=== PATIENT | female | born 2000 | race African-American/Black ===

== ENCOUNTER 2019-11-09 14:52 | Emergency (ER) | payer OTHER, SELFPAY ==
--- NOTE | 2019-11-09 16:36 | ER ---
Nurse's Notes [facility] Name: Roberto Carlos Mcdermott Age: 19 yrs Sex: Female : 2000 Arrival Date: 11/09/2019 Time: 14:54 Bed 6 Private MD: Diagnosis: Foreign body in vulva and vagina-tampon removed Presentation: 11/08 15:02 Chief complaint: Patient states: Pt reports a foul odor to vaginal area that began ss yesterday. Pt is concerned that she may have a tampon lodged in her vagina. Reports brown discharge. Coronavirus screen: Client denies travel out of the [place] in the last 14 days. Ebola Screen: Patient denies exposure to infectious person. Patient denies travel to an Ebola-affected area in the 21 days before illness onset. Initial Sepsis Screen: Does the patient meet any 2 criteria? No. Patient's initial sepsis screen is negative. Does the patient have a suspected source of infection? No. Patient's initial sepsis screen is negative. Risk Assessment: Do you want to hurt yourself or someone else? Patient reports no desire to harm self or others. Onset of symptoms was November 08, 2019. 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 - Social history:: Smoking status: Patient denies any tobacco usage or history of. Screenin:48 Abuse screen: Denies threats or abuse. Nutritional screening: No deficits noted. tw2 Tuberculosis screening: No symptoms or risk factors identified. Fall Risk None identified. Assessment: 16:30 General: Appears in no apparent distress. uncomfortable, Behavior is calm, cooperative, jl7 appropriate for age. Pain: Complains of pain in pelvis Pain currently is 6 out of 10 on a pain scale. Pain began 2-3 days ago. Neuro: Level of Consciousness is awake, alert, obeys commands, Oriented to person, place, time, situation. Cardiovascular: Patient's skin is warm and dry. Respiratory: Airway is patent Respiratory effort is even, unlabored, Respiratory pattern is regular, symmetrical. : Reports pain vaginal odor. Derm: Skin is pink, warm \T\ dry. Vital Signs: 15:05 BP 126 / 85; Pulse 89; Resp 14; Temp 97.8(TE); Pulse Ox 95% on R/A; Weight 70.76 kg; ss Height 5 ft. 5 in. (165.10 cm); Pain 6/10; 16:49 BP 122 / 77; Pulse 84; Resp 16; Pulse Ox 97% on R/A; tw2 15:05 Body Mass Index 25.96 (70.76 kg, 165.10 cm) ED Course: 14:54 Patient arrived in ED. ag5 15:04 Triage completed. 15:05 Arm band placed on right wrist. 16:08 Jalyn Garcia FNP-C is PHCP. kb 16:08 Ulisses Torres MD is Attending Physician. kb 16:10 Placed in gown. Bed in low position. Pulse ox on. NIBP on. tw2 16:18 Cherrie Alcantar, RN is Primary Nurse. jl7 16:30 Assist provider with pelvic exam: Set up pelvic tray. Performed by Jalyn MEDEL Patient tolerated well. tampon removed. 16:49 Patient did not have IV access during this emergency room visit. tw2 Administered Medications: No medications were administered Outcome: 16:36 Discharge ordered by MD. kb 16:48 Discharged to home ambulatory. tw2 16:48 Condition: stable 16:48 Discharge instructions given to patient, Instructed on discharge instructions, follow up and referral plans. medication usage, Demonstrated understanding of instructions, follow-up care, medications, Prescriptions given X 2. 16:51 Patient left the ED. jl7 Signatures: Jalyn Garcia FNP-C FNP-Ckb Smirch, Shelby, RN RN Delma Whittaker RN RN tw2 Cherrie Alcantar RN RN jl7 Dani Baron ag5 Corrections: (The following items were deleted from the chart) 15:07 15:02 Acuity: SHA 4 [facility]
--- NOTE | 2019-11-09 16:36 | EDPHYS ---
Physician Documentation [facility] Name: Roberto Carlos Mcdermott Age: 19 yrs Sex: Female : 2000 Arrival Date: 11/09/2019 Time: 14:54 Bed 6 Private MD: ED Physician Ulisses Torres HPI: 11/08 16:52 This 19 yrs old Black Female presents to ER via Ambulatory with complaints of Vaginal kb Problem. 17:04 The patient presents with PT reports she got off her period 2 days ago and has had some kb vaginal pain and foul odor since then. Believes she has a tampon in.. Onset: The symptoms/episode began/occurred 2 day(s) ago. Modifying factors: The symptoms are alleviated by nothing, the symptoms are aggravated by nothing. Associated signs and symptoms: Pertinent positives: foul odor. Severity of symptoms: At their worst the symptoms were moderate, in the emergency department the symptoms are unchanged. The patient has not experienced similar symptoms in the past. The patient has not recently seen a physician. 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 - Social history:: Smoking status: Patient denies any tobacco usage or history of. ROS: 16:50 Constitutional: Negative for fever, chills, and weight loss, Cardiovascular: Negative kb for chest pain, palpitations, and edema, Respiratory: Negative for shortness of breath, cough, wheezing, and pleuritic chest pain, Abdomen/GI: Negative for abdominal pain, nausea, vomiting, diarrhea, and constipation, Back: Negative for injury and pain, MS/Extremity: Negative for injury and deformity, Skin: Negative for injury, rash, and discoloration, Neuro: Negative for headache, weakness, numbness, tingling, and seizure. 16:50 : Positive for vaginal pain and odor. Exam: 16:50 Constitutional: This is a well developed, well nourished patient who is awake, alert, kb and in no acute distress. Head/Face: Normocephalic, atraumatic. Chest/axilla: Normal chest wall appearance and motion. Nontender with no deformity. No lesions are appreciated. Cardiovascular: Regular rate and rhythm with a normal S1 and S2. No gallops, murmurs, or rubs. Normal PMI, no JVD. No pulse deficits. Respiratory: Lungs have equal breath sounds bilaterally, clear to auscultation and percussion. No rales, rhonchi or wheezes noted. No increased work of breathing, no retractions or nasal flaring. Abdomen/GI: Soft, non-tender, with normal bowel sounds. No distension or tympany. No guarding or rebound. No evidence of tenderness throughout. Skin: Warm, dry with normal turgor. Normal color with no rashes, no lesions, and no evidence of cellulitis. MS/ Extremity: Pulses equal, no cyanosis. Neurovascular intact. Full, normal range of motion. Neuro: Awake and alert, GCS 15, oriented to person, place, time, and situation. Cranial nerves II-XII grossly intact. Motor strength 5/5 in all extremities. Sensory grossly intact. Cerebellar exam normal. Normal gait. 16:50 : Pelvic Exam: External exam: is normal, Speculum exam: tampon in place, the nurse was present for the exam. Vital Signs: 15:05 BP 126 / 85; Pulse 89; Resp 14; Temp 97.8(TE); Pulse Ox 95% on R/A; Weight 70.76 kg; ss Height 5 ft. 5 in. (165.10 cm); Pain 6/10; 16:49 BP 122 / 77; Pulse 84; Resp 16; Pulse Ox 97% on R/A; tw2 15:05 Body Mass Index 25.96 (70.76 kg, 165.10 cm) ss Procedures: 16:51 Foreign Body Removal: a tampon, from the vagina, by ring forceps. The patient tolerated kb the removal well. MDM: 16:08 Patient medically screened. kb 16:50 Data reviewed: vital signs, nurses notes. Data interpreted: Pulse oximetry: on room air kb is 97 %. Interpretation: normal. Counseling: I had a detailed discussion with the patient and/or guardian regarding: the historical points, exam findings, and any diagnostic results supporting the discharge/admit diagnosis, the need for outpatient follow up, an OB/Gyne specialist, to return to the emergency department if symptoms worsen or persist or if there are any questions or concerns that arise at home. 11/08 16:09 Order name: Pelvic Exam Setup; Complete Time: 16:26 kb Administered Medications: No medications were administered Disposition: 17:34 Co-signature as Attending Physician, Ulisses Torres MD. rn Disposition: 11/09/19 16:36 Discharged to Home. Impression: Foreign body in vulva and vagina - tampon removed. - Condition is Stable. - Discharge Instructions: Vaginal Foreign Body, [id number]. - Prescriptions for Doxycycline Hyclate 100 mg Oral Tablet - take 1 tablet by ORAL route every 12 hours for 7 days; 14 tablet. Bactrim DS 800- 160 mg Oral Tablet - take 1 tablet by ORAL route every 12 hours for 7 days; 14 tablet. - Medication Reconciliation Form, Thank You Letter, Antibiotic Education, Prescription Opioid Use form. - Follow up: Emergency Department; When: As needed; Reason: Worsening of condition. Follow up: Private Physician; When: 2 - 3 days; Reason: Recheck today's complaints, Continuance of care, Re-evaluation by your physician. Signatures: Jalyn Garcia, SECTION CREWS ACTIVITIES CLERK-C SECTION CREWS ACTIVITIES CLERK-Ckb Ulisses Torres MD MD rn Smirch, Shelby, RN RN ss Cherrie Alcantar RN RN jl7 Corrections: (The following items were deleted from the chart) 16:51 16:36 11/09/2019 16:36 Discharged to Home. Impression: Foreign body in vulva and vagina jl7 - tampon removed. Condition is Stable. Forms are Medication Reconciliation Form, Thank You Letter, Antibiotic Education, Prescription Opioid Use. Follow up: Emergency Department; When: As needed; Reason: Worsening of condition. Follow up: Private Physician; When: 2 - 3 days; Reason: Recheck today's complaints, Continuance of care, Re-evaluation by your physician. kb
[2019-11-09 17:02] VITALS: TEMP 97.8
[2019-11-09 17:03] VITALS: BP 122/77; O2SAT 97
== END 2019-11-09 16:51 | disposition home or self-care (01) ==
LOC: ER 14:52
DX: T19.2XXA Foreign body in vulva and vagina, initial encounter (principal)
CPT/HCPCS: 99283

== ENCOUNTER 2020-08-01 11:00 | Emergency (ER) | payer SELFPAY ==
--- OUTSIDE RECORDS SUMMARY | 2020-08-01 11:02 | XMS REPORT | Continuity of Care Document ---
:2000 Author Organization [facility] t Address [address] [place] [address] Care Team Providers Name Role Phone Dakota White MD Attending Clinician Alden Tejada NP Attending Clinician Doctor Unassigned, Name Attending Clinician Unavailable Problems This patient has no known problems. Allergies, Adverse Reactions, Alerts This patient has no known allergies or adverse reactions. Medications This patient has no known medications. Procedures This patient has no known procedures. Encounters Start End Encounter Admission Attending Care Care Encounter Source Date/Time Date/Time Type Type Clinicians Facility Department ID 2020-07-24 2020-07-24 Telephone Bethany White [facility] [id number] 00:00:00 00:00:00 Dakota Jordan [id number] [place] [id number] [facility] [id number] [address] 2020-02-11 2020-02-11 Emergency Mallory [facility] [id number] 13:37:00 15:17:00 Samia Jordan [id number] [place] [id number] [place] [id number] 2020-02-11 2020-02-11 Orders Doctor GORDON [id number] 00:00:00 00:00:00 Only [facility] [id number] [place] [facility] [id number] Results This patient has no known results.
--- NOTE | 2020-08-01 12:12 | ER ---
Nurse's Notes [facility] Name: Roberto Carlos Mcdermott Age: 20 yrs Sex: Female : 2000 Arrival Date: 08/01/2020 Time: 11:00 Bed 12 Private MD: Diagnosis: Acute contact otitis externa, bilateral Presentation: 08/01 11:32 Chief complaint: Patient states: 2 days ago my RIGHT ear started hurting after i left [place], then i woke up this morning and now my LEFT ear hurts ear. it sounds clogged up. denies cough/nasal congestion. Coronavirus screen: At this time, the client does not indicate any symptoms associated with coronavirus-19. Ebola Screen: Patient denies travel to an Ebola-affected area in the 21 days before illness onset. Initial Sepsis Screen: Does the patient meet any 2 criteria? No. Patient's initial sepsis screen is negative. Does the patient have a suspected source of infection? No. Patient's initial sepsis screen is negative. Risk Assessment: Do you want to hurt yourself or someone else? Patient reports no desire to harm self or others. Onset of symptoms was August 01, 2020. 11:32 Method Of Arrival: Ambulatory tw2 11:32 Acuity: SHA 4 tw2 Triage Assessment: 11:34 General: Appears in no apparent distress. uncomfortable, slender, Behavior is calm, tw2 cooperative. Pain: Complains of pain in right ear and left ear. EENT: Reports pain in right ear and left ear. 12:07 Neuro: Level of Consciousness is awake, alert, obeys commands, Oriented to person, iw place, time, situation. Respiratory: Airway is patent Respiratory effort is even, unlabored, Respiratory pattern is regular, symmetrical, Denies pain with respiration, pain with cough. Historical: - Allergies: 11:34 No Known Allergies; tw2 - Home Meds: 11:34 None [Active]; tw2 - PMHx: 11:34 None; tw2 - PSHx: 11:34 None; tw2 - Immunization history:: Adult Immunizations. - Social history:: Smoking status: Patient denies any tobacco usage or history of. Screenin:34 Abuse screen: Denies threats or abuse. Denies injuries from another. Nutritional iw screening: No deficits noted. Tuberculosis screening: No symptoms or risk factors identified. Fall Risk None identified. Assessment: 12:34 Reassessment: Patient appears in no apparent distress at this time. Patient and/or iw family updated on plan of care and expected duration. Pain level reassessed. Patient is alert, oriented x 3, equal unlabored respirations, skin warm/dry/pink. Vital Signs: 11:32 BP 136 / 96; Pulse 92; Resp 17; Temp 99.1(TE); Pulse Ox 100% on R/A; Weight 70.31 kg tw2 (R); Height 5 ft. 5 in. (165.10 cm) (R); Pain 10/10; 11:32 Body Mass Index 25.79 (70.31 kg, 165.10 cm) tw2 ED Course: 11:00 Patient arrived in ED. am2 11:33 Triage completed. tw2 11:34 Arm band placed on. tw2 11:46 Brenda Mcdermott RN is Primary Nurse. iw 11:58 [facility] jr8 11:58 Mirza Newby MD is Attending Physician. jr8 12:34 Patient has correct armband on for positive identification. iw 12:34 No provider procedures requiring assistance completed. Patient did not have IV access iw during this emergency room visit. Administered Medications: No medications were administered Outcome: 12:12 Discharge ordered by . jr8 12:34 Discharged to home ambulatory. iw 12:34 Condition: good 12:34 Discharge instructions given to patient, Instructed on discharge instructions, follow up and referral plans. medication usage, Demonstrated understanding of instructions, follow-up care, medications, Prescriptions given X 1. 12:34 Patient left the ED. iw Signatures: Brenda Mcdermott, JACKY RN Marques Choudhary PA PA jr8 Delma Whittaker RN RN 2 Kristine [facility]ss [facility]
--- NOTE | 2020-08-01 12:13 | EDPHYS ---
Physician Documentation [facility] Name: Roberto Carlos Mcdermott Age: 20 yrs Sex: Female : 2000 Arrival Date: 08/01/2020 Time: 11:00 Bed 12 Private MD: ED Physician Mirza Newby HPI: 08/01 12:14 This 20 yrs old Black Female presents to ER via Ambulatory with complaints of Ear Pain. jr8 12:14 The complaints affect the right ear and left ear. Onset: The symptoms/episode jr8 began/occurred acutely, yesterday. Modifying factors: The symptoms are alleviated by nothing, the symptoms are aggravated by pulling on ears, touching. Associated signs and symptoms: The patient has no apparent associated signs or symptoms. Severity of symptoms: At their worst the symptoms were mild in the emergency department the symptoms are unchanged. The patient has not experienced similar symptoms in the past. The patient has not recently seen a physician. Historical: - Allergies: 11:34 No Known Allergies; tw2 - Home Meds: 11:34 None [Active]; tw2 - PMHx: 11:34 None; tw2 - PSHx: 11:34 None; tw2 - Immunization history:: Adult Immunizations. - Social history:: Smoking status: Patient denies any tobacco usage or history of. ROS: 12:14 Constitutional: Negative for fever, chills, and weight loss. jr8 12:14 ENT: Positive for ear pain, Negative for drainage from ear(s), Teeth pain rhinorrhea, sinus congestion, sinus pain, sore throat. 12:14 All other systems are negative. Exam: 12:14 Head/Face: Normocephalic, atraumatic. Eyes: Pupils equal round and reactive to light, jr8 extra-ocular motions intact. Lids and lashes normal. Conjunctiva and sclera are non-icteric and not injected. Cornea within normal limits. Periorbital areas with no swelling, redness, or edema. Neck: Trachea midline, no thyromegaly or masses palpated, and no cervical lymphadenopathy. Supple, full range of motion without nuchal rigidity, or vertebral point tenderness. No Meningismus. Cardiovascular: Regular rate and rhythm with a normal S1 and S2. No gallops, murmurs, or rubs. Normal PMI, no JVD. No pulse deficits. Respiratory: Lungs have equal breath sounds bilaterally, clear to auscultation and percussion. No rales, rhonchi or wheezes noted. No increased work of breathing, no retractions or nasal flaring. Skin: Warm, dry with normal turgor. Normal color with no rashes, no lesions, and no evidence of cellulitis. MS/ Extremity: Pulses equal, no cyanosis. Neurovascular intact. Full, normal range of motion. Neuro: Awake and alert, GCS 15, oriented to person, place, time, and situation. Motor strength 5/5 in all extremities. Sensory grossly intact. 12:14 ENT: External ear(s): are unremarkable, Ear canal(s): erythema, that is moderate, bilaterally, swelling, that is moderate, bilaterally, TM's: are normal, Mouth: is normal, Posterior pharynx: is normal. Vital Signs: 11:32 BP 136 / 96; Pulse 92; Resp 17; Temp 99.1(TE); Pulse Ox 100% on R/A; Weight 70.31 kg tw2 (R); Height 5 ft. 5 in. (165.10 cm) (R); Pain 10/10; 11:32 Body Mass Index 25.79 (70.31 kg, 165.10 cm) tw2 MDM: 11:58 Patient medically screened. jr8 12:12 Data reviewed: vital signs, nurses notes, and as a result, I will discharge patient. jr8 Data interpreted: Pulse oximetry: on room air is 100 %. Interpretation: normal. Counseling: I had a detailed discussion with the patient and/or guardian regarding: the historical points, exam findings, and any diagnostic results supporting the discharge/admit diagnosis, the need for outpatient follow up, a family practitioner, to return to the emergency department if symptoms worsen or persist or if there are any questions or concerns that arise at home. Administered Medications: No medications were administered Disposition: 08/02 07:14 Co-signature as Attending Physician, Mirza Newby MD I agree with the assessment and kdr plan of care. Disposition: 08/01/20 12:12 Discharged to Home. Impression: Acute contact otitis externa, bilateral. - Condition is Stable. - Discharge Instructions: Otitis Externa. - Prescriptions for Cortisporin- TC 3.3-3-10-0.5 mg/mL Otic Drops, Suspension - instill 4 drops by OTIC route every 6 hours for 7 days apply to both ears; 1 bottle. - Work release form, Medication Reconciliation Form, Thank You Letter, Antibiotic Education, Prescription Opioid Use form. - Follow up: Private Physician; When: 1 week; Reason: Recheck today's complaints, Continuance of care, Re-evaluation by your physician. - Problem is new. - Symptoms have improved. Signatures: Mirza Newby MD MD kdr Brenda Mcdermott RN RN iw Marques Choudhary PA PA jr8 Delma Whittaker RN RN tw2 Corrections: (The following items were deleted from the chart) 08/01 12:34 12:12 08/01/2020 12:12 Discharged to Home. Impression: Acute contact otitis externa, iw bilateral. Condition is Stable. Forms are Work release form, Medication Reconciliation Form, Thank You Letter, Antibiotic Education, Prescription Opioid Use. Follow up: Private Physician; When: 1 week; Reason: Recheck today's complaints, Continuance of care, Re-evaluation by your physician. Problem is new. Symptoms have improved. jr8
[2020-08-01 12:39] VITALS: BP 136/96; TEMP 99.1; O2SAT 100
== END 2020-08-01 12:34 | disposition home or self-care (01) ==
LOC: ER 11:00
DX: H60.533 Acute contact otitis externa, bilateral (principal)
CPT/HCPCS: 99282

== ENCOUNTER 2022-01-05 19:01 | Emergency (ER) | payer SELFPAY ==
--- OUTSIDE RECORDS SUMMARY | 2022-01-05 19:05 | XMS REPORT | Continuity of Care Document ---
:2000 Author Organization [facility] t Address [address] [place] [address] Care Team Providers Name Role Phone PCP, PATIENT DOES NOT HAVE A Primary Care Physician Unavaila Hao Feldman Attending Clinician Varghese RICO, Shaniqua Meza Attending Clinician Unavailable HAO DE LA O Attending Clinician Unavailable QING MORLEY Attending Clinician Unavailable Qing Morley MD Attending Clinician Samia Tejada NP Attending Clinician Doctor Unassigned, [place] Attending Clinician Unavailable Payers Payer Name Policy Type Policy Number Effective Date Expiration Date S ourbasim [facility] [id number] 2015 00:00:00 Problems Condition Condition Condition Status Onset Resolution Last Treating Co mments Source Name Details Category Date Date Treatment Clinician Date Vaginal Vaginal Disease Active 2016-02 Univers discharge discharge 0-06 ity of 00:00: [place] 00 Medical Branch Depo-Prove Depo-Prove Disease Active U nivers ra ra 8-18 [place] giovanny status 00 Me dical Branch Allergies, Adverse Reactions, Alerts Allergy Allergy Status Severity Reaction(s) Onset Inactive Treating Comm ents Source Name Type Date Date Clinician NO KNOWN Drug Active Univers ALLERGIE Class ity of S [facility] Social History Social Habit Start Date Stop Date Quantity Comments Source Exposure to Not sure [facility] SARS-CoV-2 (event) Medica l Branch Alcohol intake 2017-05-19 2017-05-19 0 /d [facility] 00:00:00 00:00:00 [facility] Tobacco use and 2014-05-28 2014-05-28 Never used [employer] [facility] exposure 00:00:00 00:00:00 [facility] Sex Assigned At [birth year] [facility] 00:00:00 00:00:00 [facility] Smoking Status Start Date Stop Date Source Never smoker [facility] Medications Ordered Filled Start Stop Current Ordering Indication Dosage Frequency Signature Comments Components Source Medication Medication Date Date Medication? Clinician (SIG) Name Name No known 2020-02 No Univers medications 2-16 ity of 14:27: [address] No known 2020-02 No Univers medications 2-16 ity of 14:27: [address] No known 2020-02 No Univers medications 2-16 ity of 14:27: [address] phenazopyri Yes 200mg Take 1 Uni vers dine 200 mg 6-28 tablet by ity of tablet 00:00: mouth 3 [place] 00 (three) Medical times Branch daily. Nitrofurant Yes 100mg Take 1 Uni vers oin&Nit. 6-28 capsule by ity o [place] (MACROB[place] 00 (two) Medical 100 mg times [place] capsule daily. naproxen Yes 550mg Take 1 Univer s sodium 550 6-28 tablet by ity of mg tablet 00:00: mouth 2 [place] 00 (two) Medical times [place] daily with meals. phenazopyri 2020- No 200mg Take 1 Un elizabeth dine 200 mg 6-28 12-27 tablet by it y of tablet 00:00: 00:00 mouth 3 [place] 00 :00 (three) Medical times Branch daily. Nitrofurant 2020- No 100mg Take 1 Un elizabeth oin&Nit. 6-28 12-27 capsule by ity of [place] 00:00: 00:00 mouth 2 [place] (MACROBID) 00 :00 (two) Medical 100 mg times Branch capsule daily. naproxen 2019- No 550mg Take 1 Unive rs sodium 550 - 12- tablet by ity of mg tablet 00:00: 00:[place] :[place] (two) Medical times Branch daily with meals. promethazin Yes 5mL Take 5 mL U nivers e-codeine 1-11 by mouth 4 ity of 6.25-10 00:00: (four) [place] mg/5 mL 00 times Medical syrup daily as Branch needed for Cough. traMADOL Yes 50mg Take 1 Univers (ULTRAM) 50 1-11 tablet by ity of mg tablet 00:00: mouth [place] 00 every 6 Medical (six) Branch hours as needed for Pain (scale 4-6). promethazin 2020- No 5mL Take 5 mL Univers e-codeine 1-11 12-27 by mouth 4 ity of 6.25-10 00:00: 00:00 (four) [place] mg/5 mL 00 :00 times Medical syrup daily as Branch needed for Cough. traMADOL 2020- No 50mg Take 1 Univer s (ULTRAM) 50 1- 12-27 tablet by it y of mg tablet 00:00: 00:00 mouth [place] 00 :00 every 6 Medical (six) Branch hours as needed for Pain (scale 4-6). No known No Univers medications ity of [facility] Immunizations Ordered Filled Immunization Date Status Comments [facility] e Immunization Name Name Influenza Virus 2016-11-18 Completed Universit y of Vaccine [place] IM 3+ 00:00:00 [facility] Influenza Virus 2016-11-18 Completed Universit y of Vaccine [place] IM 3+ 00:00:00 [facility] Influenza Virus 2016-11-18 Completed Universit y of Vaccine [place] IM 3+ 00:00:00 [facility] Influenza Virus 2016-11-18 Completed Universit y of Vaccine [place] IM 3+ 00:00:00 [facility] Influenza Virus 2016-11-18 Completed Universit y of Vaccine [place] IM 3+ 00:00:00 [facility] Influenza Virus 2016-11-18 Completed Universit y of Vaccine Quad IM 3+ 00:00:00 [facility] HPV9 2016-04-06 Completed University of 00:00:00 [facility] Branch HPV9 2016-04-06 Completed University of 00:00:00 [facility] Branch HPV9 2016-04-06 Completed University of 00:00:00 [place] [facility] HPV9 2016-04-06 Completed University of 00:00:00 [facility] Branch HPV9 2016-04-06 Completed University of 00:00:00 [facility] Branch HPV9 2016-04-06 Completed University of 00:00:00 [place] [facility] HPV9 2016-01-06 Completed University of 00:00:00 [place] [facility] HPV9 2016-01-06 Completed University of 00:00:00 [place] [facility] HPV9 2016-01-06 Completed University of 00:00:00 [facility] Branch HPV9 2016-01-06 Completed University of 00:00:00 [place] [facility] HPV9 2016-01-06 Completed University of 00:00:00 [facility] Branch HPV9 2016-01-06 Completed University of 00:00:00 [facility] Branch HPV9 2015-10-03 Completed University of 00:00:00 [place] [facility] HPV9 2015-10-03 Completed University of 00:00:00 [place] [facility] HPV9 2015-10-03 Completed University of 00:00:00 [place] [facility] HPV9 2015-10-03 Completed University of 00:00:00 [facility] Branch HPV9 2015-10-03 Completed University of 00:00:00 [facility] Branch HPV9 2015-10-03 Completed University of 00:00:00 [facility] Branch MMR 2014-06-28 Completed University of 00:00:00 [facility] Branch MMR 2014-06-28 Completed University of 00:00:00 [place] [facility] MMR 2014-06-28 Completed University of 00:00:00 [place] [facility] MMR 2014-06-28 Completed University of 00:00:00 [place] [facility] MMR 2014-06-28 Completed University of 00:00:00 [place] [facility] MMR 2014-06-28 Completed University of 00:00:00 [facility] Branch TDAP 2014-03-18 Completed University of 00:00:00 [facility] Branch TDAP 2014-03-18 Completed University of 00:00:00 [facility] Branch TDAP 2014-03-18 Completed University of 00:00:00 [facility] Branch TDAP 2014-03-18 Completed University of 00:00:00 [facility] Branch TDAP 2014-03-18 Completed University 00:00:00 [place] [facility] TDAP 2014-03-18 Completed University 00:00:00 [facility] Vital Signs Vital Name Observation Time Observation Value Comments Source Oxygen saturation in 2021-01-30 20:01:00 97 /min University of Arterial blood by [place] [facility] Pulse oximetry Branch Systolic blood 2021-01-30 20:01:00 132 mm[Hg] Univer sity of pressure [place] [facility] Diastolic blood 2021-01-30 20:01:00 72 mm[Hg] Unive rsity of pressure [place] [facility] Heart rate 2021-01-30 20:01:00 88 /min Universi ty of [place] [facility] [place] Body temperature 2021-01-30 20:01:00 37.11 Leigh Univ ersity of [place] [facility] Respiratory rate 2021-01-30 20:01:00 18 /min Univ ersity of [place] [facility] Body height 2021-01-30 20:01:00 165.1 cm Universi ty of [place] [facility] [place] Body weight 2021-01-30 20:01:00 67.217 kg Universi ty of [place] [facility] [place] BMI 2021-01-30 20:01:00 24.66 kg/m2 Universi ty of [place] [facility] Systolic blood 2020-02-11 21:15:00 135 mm[Hg] Univer sity of pressure [place] [facility] Diastolic blood 2020-02-11 21:15:00 95 mm[Hg] Unive rsity of pressure [place] [facility] Oxygen saturation in 2020-02-11 21:15:00 99 /min University of Arterial blood by [place] [facility] Pulse oximetry Branch Body weight 2020-02-11 19:35:00 70.761 kg Universi ty of [place] [facility] Heart rate 2020-02-11 19:35:00 98 /min Universi ty of [place] [facility] Body temperature 2020-02-11 19:35:00 37 Leigh Univ ersity of [place] [facility] Respiratory rate 2020-02-11 19:35:00 18 /min Univ ersity of [place] [facility] Systolic blood 2020-02-11 21:15:00 135 mm[Hg] Univer sity of pressure [place] [facility] Diastolic blood 2020-02-11 21:15:00 95 mm[Hg] Unive rsity of pressure [place] [facility] Oxygen saturation in 2020-02-11 21:15:00 99 /min [facility] Arterial blood by [place] [facility] Pulse oximetry [place] Body weight 2020-02-11 19:35:00 [facility] Heart rate 2020-02-11 19:35:00 98 /min [facility] Body temperature 2020-02-11 19:35:00 37 Leigh [facility] Respiratory rate 2020-02-11 19:35:00 18 /min [facility] Procedures Procedure Date / Time Performed Performing Clinician Soursamy e POCT MOLECULAR FLU 2021-01-30 20:13:00 Hao De La Oit y [facility] POCT MOLECULAR STREP 2021-01-30 20:10:00 Hao De La O [facility] ity [facility] POCT TEST 2020-02-11 20:10:00 Samia Tejada [facility] NOTICE OF PRIVACY 2020-02-11 19:30:19 Doctor Unassigned, No [facility] PRACTICES Name [facility] CONSENT/REFUSAL FOR 2020-02-11 19:30:04 Doctor Unassigned, No [facility] DIAGNOSIS AND Name [facility] TREATMENT Encounters Start End Encounter Admission Attending Care Care Encounter Source Date/Time Date/Time Type Type Clinicians Facility Department ID 2020-12-14 Emergency [facility] [id number] Univers 13:13:53 ity of [facility] 2021-02-01 2021-02-01 Telephone Emilia [facility] [id number] Univers 00:00:00 00:00:00 WebPT [id number] it y of [place] 4.2.7.2.686 [place] as OMER?BLEA [id number] [address] MEDICAL OFFICE BUILDING 2021-01-31 2021-01-31 Telephone EVAN Kwong [id number] Univers 00:00:00 00:00:00 Shaniqua GREGORY [id number] ity of [facility] 4.2.7.2.686 Arm[place] as [id number] [place] [address] Branch 2021-01-30 2021-01-30 [facility] [id number] Univers 14:00:00 14:30:12 [facility] ity of [facility] 2021-01-30 2021-01-30 [facility] [id number] Univers 14:00:00 14:20:[address] [facility] [id number] it y of [place] [id number] Armin as OMER?BLEA [id number] Wi dical [address] MEDICAL OFFICE BUILDING 2020-07-26 2020-07-26 Outpatient R QING MORLEY [facility] [id number] Univers 15:00:00 15:00:00 ity of [facility] 2020-07-24 2020-07-24 Telephone Qing Morley [facility] [id number] 00:00:00 00:00:00 Cam Julian [id number] [place] 4.2.7.2.686 Professio [id number] [address] 2020-07-24 2020-07-24 Telephone Qing Morley [facility] [id number] Univers 00:00:00 00:00:00 Cam Julian [id number] i ty of [place] 4[place]2.7.2.686 [place] Profess[place] [id number] Wi gracesowmya [facility]ia [facility] [address] [facility] 2020-02-11 2020-02-11 Emergency [facility] [id number] 13:37:00 15:17:00 Samia Jordan [id number] [place] [id number] [place] [id number] [facility] 2020-02-11 2020-02-11 Emergency [facility] [id number] Univers 13:37:00 15:17:00 Samia Jordan [id number] ity of [place] 4.2.7.2.686 [place] [id number] [address] 2020-02-11 2020-02-11 Orders Doctor GORDON [id number] 00:00:00 00:00:00 Only Unassigned, COLT [id number] [place] [facility] 4.2.7.2.686 [id number] 2020-02-11 2020-02-11 Orders Doctor EVAN [id number] [facility] 00:00:00 00:00:00 Only Unassigned, COLT [id number] ity of [place] [facility] 4.2.7.2.686 [place] as [id number] [address] Results Test Description Test Time Test Comments Results Result Comments Source POCT MOLECULAR FLU 2021-01-30 20:25:03 Test Item Value Reference Range Interpretation Comme nts POCT Molecular FluA (test code = 84180-9) Negative Negative POCT Molecular FluB (test code = 75620-6) Negative Negative Lab Interpretation (test code = 09195-9) [facility] [id number] 20:18:15 Test Item Value Reference Range Interpretation Comments POCT Molecular Strep (test code = Negative Negative 39325-7) Lab Interpretation (test code = Normal 08135-6) [facility] [id number] 20:10:00 Test Item Value Reference Range Interpretation Comments POCT PREG (test code = 1605) negative On board controls acceptable with positive C Line (test code = 3574) POCT PREG LOT # (test code = 3575) [id number] POCT PREG TEST DATE (test 06-14-2021 code = 3576) Lab Interpretation (test code = Normal 75412-9) [facility]
[2022-01-05 20:21] LABS: SARS-COV-2 RT PCR NEGATIVE (NEGATIVE)
--- NOTE | 2022-01-05 21:01 | ER ---
Nurse's Notes [facility] Name: Roberto Carlos Mcdermott Age: 21 yrs Sex: Female : 2000 Arrival Date: 01/05/2022 Time: 19:05 Bed IW3 Private MD: Diagnosis: Viral infection, unspecified Presentation: 01/05 19:24 Chief complaint: Patient states: Flu like symtoms x3 days; no throat pain just jh5 congestion and chills, fever. Coronavirus screen: Vaccine status: Patient reports being unvaccinated. Client denies travel out of the [place] in the last 14 days. Ebola Screen: Patient negative for fever greater than or equal to 101.5 degrees Fahrenheit, and additional compatible Ebola Virus Disease symptoms Patient denies exposure to infectious person. Patient denies travel to an Ebola-affected area in the 21 days before illness onset. Initial Sepsis Screen: Does the patient meet any 2 criteria? No. Patient's initial sepsis screen is negative. Does the patient have a suspected source of infection? No. Patient's initial sepsis screen is negative. Risk Assessment: Do you want to hurt yourself or someone else? Patient reports no desire to harm self or others. 19:24 Method Of Arrival: Ambulatory [facility] 19:24 Acuity: SHA 3 jh5 Triage Assessment: 19:31 General: Appears in no apparent distress. uncomfortable, slender, well groomed, well jh5 developed, Behavior is calm, cooperative, appropriate for age. Pain: Denies pain. 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 - Social history:: Smoking status: Patient denies any tobacco usage or history of. Screenin:39 Abuse screen: Denies threats or abuse. Nutritional screening: No deficits noted. vc1 Tuberculosis screening: No symptoms or risk factors identified. Fall Risk None identified. Assessment: 21:40 Reassessment: No changes from previously documented assessment. Patient and/or family vc1 updated on plan of care and expected duration. Pain level reassessed. Vital Signs: 19:24 BP 140 / 84; Pulse 106; Resp 16; Temp 98.7; Pulse Ox 100% ; Weight 70.31 kg; Height 5 [facility] ft. 5 in. (165.10 cm); 19:24 Body Mass Index 25.79 (70.31 kg, 165.10 cm) [facility] ED Course: 19:05 Patient arrived in ED. as 19:06 Jaswinder Clay PA is PHCP. cp 19:06 Chad Workman MD is Attending Physician. 19:31 Triage completed. [facility] 19:31 Arm band placed on right wrist. [facility] 19:36 Strep Sent. [facility] 19:36 COVID-19/FLU A+B Sent. [facility] 21:39 No provider procedures requiring assistance completed. Patient did not have IV access vc1 during this emergency room visit. Administered Medications: No medications were administered Medication: 21:39 VIS not applicable for this client. vc1 Outcome: 21:01 Discharge ordered by . cp 21:39 Discharged to home ambulatory. vc1 21:39 Condition: good 21:39 Discharge instructions given to patient, Instructed on discharge instructions, follow up and referral plans. medication usage, Demonstrated understanding of instructions, follow-up care, medications, Prescriptions given X 2. 21:40 Patient left the ED. vc1 Signatures: Evelina Landa as Jaswinder Clay PA PA cp Trina Lamb, RN RN [facility] Julieta López RN RN vc1
--- NOTE | 2022-01-05 21:02 | EDPHYS ---
Physician Documentation [facility] [place] [facility] Name: Roberto Carlos Mcdermott Age: 21 yrs Sex: Female : 2000 Arrival Date: 01/05/2022 Time: 19:05 Bed IW3 Private MD: ED Physician Cahd Workman HPI: 01/05 19:40 This 21 yrs old Black Female presents to ER via Ambulatory with complaints of Flu cp Symptoms. 19:40 The patient or guardian reports cough, that is intermittent. cp 19:40 Onset: The symptoms/episode began/occurred 3 day(s) ago. Associated signs and symptoms: cp Pertinent positives: fever, rhinorrhea, congestion, Pertinent negatives: diarrhea, vomiting. Severity of symptoms: in the emergency department the symptoms are unchanged despite home interventions. 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 - Social history:: Smoking status: Patient denies any tobacco usage or history of. ROS: 19:55 Constitutional: Positive for body aches, Negative for fever, poor PO intake. cp 19:55 Eyes: Negative for injury, pain, redness, and discharge. cp 19:55 ENT: Positive for rhinorrhea, sore throat, Negative for drainage from ear(s), ear pain, difficulty swallowing, difficulty handling secretions. 19:55 Respiratory: Positive for cough, Negative for shortness of breath, wheezing. 19:55 Abdomen/GI: Negative for abdominal pain, nausea, vomiting, and diarrhea. 19:55 Neuro: Negative for altered mental status, dizziness, headache, weakness. 19:55 All other systems are negative. Exam: 20:00 Constitutional: The patient appears in no acute distress, alert, awake, non-toxic, well cp developed, well nourished. 20:00 Head/Face: Normocephalic, atraumatic. cp 20:00 Eyes: Periorbital structures: appear normal, Conjunctiva: normal, no exudate, no injection, Lids and lashes: appear normal, bilaterally. 20:00 ENT: External ear(s): are unremarkable, Ear canal(s): are normal, clear, TM's: bulging, is not appreciated, bilaterally, dullness, bilaterally, erythema, is not appreciated, bilaterally, Nose: is normal, Mouth: Lips: moist, Oral mucosa: pink and intact, moist, Posterior pharynx: Airway: no evidence of obstruction, patent, Tonsils: no enlargement, no erythema, no exudate, swelling, is not appreciated, erythema, that is mild, exudate, is not appreciated. 20:00 Neck: ROM/movement: is normal, is supple, without pain, no range of motions limitations, no meningismus, Lymph nodes: no appreciated lymphadenopathy. 20:00 Chest/axilla: Inspection: normal. 20:00 Cardiovascular: Rate: tachycardic, Rhythm: regular. 20:00 Respiratory: the patient does not display signs of respiratory distress, Respirations: normal, no use of accessory muscles, no retractions, labored breathing, is not present, Breath sounds: decreased breath sounds, are not appreciated, stridor, is not appreciated, + upper airway congestion. wheezing: is not appreciated. 20:00 Abdomen/GI: Exam negative for discomfort, distension, guarding, Inspection: abdomen appears normal. Vital Signs: 19:24 BP 140 / 84; Pulse 106; Resp 16; Temp 98.7; Pulse Ox 100% ; Weight 70.31 kg; Height 5 jh5 ft. 5 in. (165.10 cm); 19:24 Body Mass Index 25.79 (70.31 kg, 165.10 cm) jh5 MDM: 19:34 Patient medically screened. cp 20:00 Differential diagnosis: bronchitis, flu, URI, pneumonia, strep throat, COVID-19. cp 21:00 Data reviewed: vital signs, nurses notes, lab test result(s). cp 21:00 Antibiotic administration: Not indicated, the patient does not have an appreciated cp infiltrate, the patient has a suspected viral illness. Counseling: I had a detailed discussion with the patient and/or guardian regarding: the historical points, exam findings, and any diagnostic results supporting the discharge/admit diagnosis, lab results, to return to the emergency department if symptoms worsen or persist or if there are any questions or concerns that arise at home. ED course: VSS. Patient appears non-toxic and no signs of respiratory distress. Will discharge to home for continued monitoring. 01/05 19:31 Order name: COVID-19/FLU A+B; Complete Time: 20:48 cp 01/05 20:48 Interpretation: Reviewed. cp 01/05 19:31 Order name: Strep; Complete Time: 20:48 cp 01/05 20:25 Order name: Throat Culture EDMS Administered Medications: No medications were administered Disposition: 01/06 07:32 Co-signature as Attending Physician, Chad Workman MD I agree with the assessment and rt plan of care. Disposition Summary: 01/05/22 21:01 Discharge Ordered Location: Home cp Problem: new cp Symptoms: are unchanged cp Condition: Stable cp Diagnosis - Viral infection, unspecified cp Followup: cp - With: Private Physician - When: 2 - 3 days - Reason: Worsening of condition Discharge Instructions: - Discharge Summary Sheet cp - Viral Respiratory Infection cp Forms: - Medication Reconciliation Form cp - Thank You Letter cp - Antibiotic Education cp - Prescription Opioid Use cp - Work release form vc1 Prescriptions: - Bromfed DM 2-30-10 mg/5 mL Oral syrup - take 10 milliliter by ORAL route every 6 hours; 180 milliliter; Refills: 0, cp Product Selection Permitted - Ibuprofen 800 mg Oral Tablet - take 1 tablet by ORAL route every 8 hours As needed take with food; 30 tablet; cp Refills: 0, Product Selection Permitted Signatures: Dispatcher [employer] EDMS Jaswinder Clay PA PA cp Rees, Jessica, JACKY RN jh5 Chad Workman MD MD rt
[2022-01-05 22:19] VITALS: BP 140/84; TEMP 98.7; O2SAT 100
== END 2022-01-05 21:40 | disposition home or self-care (01) ==
LOC: ER 19:01
DX: B34.9 Viral infection, unspecified (principal); Z20.822 Contact with and (suspected) exposure to COVID-19
CPT/HCPCS: 0240U; 87070; 87081; 99283

== ENCOUNTER 2022-04-20 20:57 | Emergency (ER) | payer OTHER ==
--- OUTSIDE RECORDS SUMMARY | 2022-04-20 21:04 | XMS REPORT | Continuity of Care Document ---
:2000 Author Organization [facility] t Address [address] [place] [address] Care Team Providers Name Role Phone Reena Chung PA-C Primary Care Physician QING MORLEY Attending Clinician Unavailable Christopher BLOCK, Qing Duncan Attending Clinician REENA CHUNG Attending Clinician Unavailable Reena Chung PA-C Attending Clinician MYRIAM ROLAND Attending Clinician Unavailable 2, [facility] Attending Clinician Unavailable Doctor Unassigned, Schriever Attending Clinician Unavailable Myriam Mercedes Attending Clinician [phone] Rach Oropeza RN Attending Clinician Unavailable Radha Cooley Attending Clinician RADHA MCCOY Attending Clinician Unavailable Provider, Dimas-Rmchfrancis Temp Attending Clinician Unavailable Hao Chavez Attending Clinician Shaniqua Kwong RN Attending Clinician Unavailable HAO NIETO Attending Clinician Unavailable Mallory BURCH, Samia Ruano Attending Clinician Payers Payer Name Policy Type Policy Number Effective Date Expiration Date S mirtha [facility] [id number] 2015 00:00:00 [place] [facility] [id number] 2022 00:00:00 Problems Condition Condition Condition Status Onset Resolution Last Treating Co mments Source Name Details Category Date Date Treatment Clinician Date BV BV Disease Active Univers (bacterial (bacterial 1-12 it y [place]in[place] [facility] Supervisio Supervisio Disease Active U bartolo n of n of 1-10 ity of high-risk high[place] [facility] History of History of Disease Active U nivvic miscarriag miscarriag 1-10 it y of e e 00:00: [address] Vaginal Vaginal Disease Active 2016-02 Univers discharge discharge 0-06 ity of 00:00: [address] Depo-Prove Depo-Prove Disease Active U bartolo ra ra 8-18 [place]anny status giovanny status 00 [facility] [place] Allergies, Adverse Reactions, Alerts Allergy Allergy Status Severity Reaction(s) Onset Inactive Treating Comm ents Source Name Type Date Date Clinician NO KNOWN Drug Active Univers ALLERGIE Class ity of S [facility] Social History Social Habit Start Date Stop Date Quantity Comments Source ASSERTION 2021-12-10 [facility] 00:00:00 [facility] Exposure to 2022-04-06 2022-04-16 Not sure [facility] SARS-CoV-2 00:00:00 09:56:00 [facility] (event) [place] Alcohol intake 2022-04-16 2022-04-16 0 /d [facility] 00:00:00 00:00:00 [facility] Tobacco use and 2022-01-17 2022-01-17 Smokeless tobacco Un iversity of exposure 00:00:00 00:00:00 non-user [facility] Sex Assigned At [birth year] Universit y of 00:00:00 00:00:00 [facility] Smoking Status Start Date Stop Date Source Never smoked tobacco [facility] Medications Ordered Filled Start Stop Current Ordering Indication Dosage Frequency Signature Comments Components Source Medication Medication Date Date Medication? Clinician (SIG) Name Name metroNIDAZO Yes [id number] 500mg Take 1 Univers LE 500 mg 1-12 tablet by ity o f tablet 00:00: mouth in [place] 00 the Medical morning Branch and 1 tablet in the evening. metroNIDAZO Yes [id number] 500mg Take 1 Univers LE 500 mg 1-12 tablet by ity o f tablet 00:00: mouth in [place] 00 the Medical morning Branch and 1 tablet in the evening. metroNIDAZO Yes [id number] 500mg Take 1 Univers LE 500 mg 1-12 tablet by ity o f tablet 00:00: mouth in [place] 00 the Medical morning Branch and 1 tablet in the evening. metroNIDAZO 2022- No [id number] 500mg Take 1 Univers LE 500 mg 02-26 tablet by ity of tablet 00:00: 00:00 mouth in [place] 00 :00 the Medical morning Branch and 1 tablet in the evening. metroNIDAZO 2022- Yes [id number] 500mg Take 1 Univers LE 500 mg 02-25 tablet by ity of tablet 00:00: 05:59 mouth in [place] 00 :00 the Medical morning Branch and 1 tablet in the evening. Do all this for 7 days. metroNIDAZO 2022- Yes [id number] 500mg Take 1 Univers LE 500 mg 02-25 tablet by ity of tablet 00:00: 05:59 mouth in [place] 00 :00 the Medical morning Branch and 1 tablet in the evening. Do all this for 7 days. metroNIDAZO 2022- Yes [id number] 500mg Take 1 Univers LE 500 mg 02-25 tablet by ity of tablet 00:00: 05:59 mouth in [place] 00 :00 the Medical morning Branch and 1 tablet in the evening. Do all this for 7 days. 2021-02 Yes [id number] Take 1 Uni vers vit 2-03 combo pack ity of 33-iron-fol 00:00: daily [place] ic-dha 00 Medical (SELECT-OB Branch + DHA) 29 mg iron-1 mg -250 mg combo pack proMETHazin 2021-02 Yes [id number] 25mg Take 1 Univers e 25 mg 2-03 tablet by ity of tablet 00:00: mouth [place] 00 every 6 Medical (six) Branch hours as needed for Nausea and Vomiting (N/V). 2021-02 Yes [id number] Take 1 Uni vers vit 2-03 combo pack ity of 33-iron-fol 00:00: daily [place] ic-dha 00 Medical (SELECT-OB Branch + DHA) 29 mg iron-1 mg -250 mg combo pack proMETHazin 2021-02 Yes [id number] 25mg Take 1 Univers e 25 mg 2-03 tablet by ity of tablet 00:00: mouth [place] 00 every 6 Medical (six) Branch hours as needed for Nausea and Vomiting (N/V). 2021-02 Yes [id number] Take 1 Uni vers vit 2-03 combo pack ity of 33-iron-fol 00:00: daily [place] ic-dha 00 Medical (SELECT-OB Branch + DHA) 29 mg iron-1 mg -250 mg combo pack proMETHazin 2021-02 Yes [id number] 25mg Take 1 Univers e 25 mg 2-03 tablet by ity of tablet 00:00: mouth [place] 00 every 6 Medical (six) Branch hours as needed for Nausea and Vomiting (N/V). 2021-02 Yes [id number] Take 1 Uni vers vit 2-03 combo pack ity of 33-iron-fol 00:00: daily [place] ic-dha 00 Medical (SELECT-OB Branch + DHA) 29 mg iron-1 mg -250 mg combo pack proMETHazin 2021-02 Yes [id number] 25mg Take 1 Univers e 25 mg 2-03 tablet by ity of tablet 00:00: mouth [place] 00 every 6 Medical (six) Branch hours as needed for Nausea and Vomiting (N/V). 2021-02 Yes [id number] Take 1 Uni vers vit 2-03 combo pack ity of 33-iron-fol 00:00: daily [place] ic-dha 00 Medical (SELECT-OB Branch + DHA) 29 mg iron-1 mg -250 mg combo pack proMETHazin 2021-02 Yes [id number] 25mg Take 1 Univers e 25 mg 2-03 tablet by ity of tablet 00:00: mouth [place] 00 every 6 Medical (six) Branch hours as needed for Nausea and Vomiting (N/V). 2021-02 Yes [id number] Take 1 Uni vers vit 2-03 combo pack ity of 33-iron-fol 00:00: daily [place] ic-dha 00 Medical (SELECT-OB Branch + DHA) 29 mg iron-1 mg -250 mg combo pack proMETHazin 2021-02 Yes [id number] 25mg Take 1 Univers e 25 mg 2-03 tablet by ity of tablet 00:00: mouth [place] 00 every 6 Medical (six) Branch hours as needed for Nausea and Vomiting (N/V). 2021-02 Yes [id number] Take 1 Uni vers vit 2-03 combo pack ity of 33-iron-fol 00:00: daily [place] ic-dha 00 Medical (SELECT-OB Branch + DHA) 29 mg iron-1 mg -250 mg combo pack proMETHazin 2021-02 Yes [id number] 25mg Take 1 Univers e 25 mg 2-03 tablet by ity of tablet 00:00: mouth [place] 00 every 6 Medical (six) Branch hours as needed for Nausea and Vomiting (N/V). 2021-02 Yes [id number] Take 1 Uni vers vit 2-03 combo pack ity of 33-iron-fol 00:00: daily [place] ic-dha 00 Medical (SELECT-OB Branch + DHA) 29 mg iron-1 mg -250 mg combo pack proMETHazin 2021-02 Yes [id number] 25mg Take 1 Univers e 25 mg 2-03 tablet by ity of tablet 00:00: mouth [place] 00 every 6 Medical (six) Branch hours as needed for Nausea and Vomiting (N/V). 2021-02 Yes [id number] Take 1 Uni vers vit 2-03 combo pack ity of 33-iron-fol 00:00: daily [place] ic-dha 00 Medical (SELECT-OB Branch + DHA) 29 mg iron-1 mg -250 mg combo pack proMETHazin 2021-02 Yes [id number] 25mg Take 1 Univers e 25 mg 2-03 tablet by ity of tablet 00:00: mouth [place] 00 every 6 Medical (six) Branch hours as needed for Nausea and Vomiting (N/V). 2021-02 Yes [id number] Take 1 Uni vers vit 2-03 combo pack ity of 33-iron-fol 00:00: daily [place] ic-dha 00 Medical (SELECT-OB Branch + DHA) 29 mg iron-1 mg -250 mg combo pack proMETHazin 2021-02 Yes [id number] 25mg Take 1 Univers e 25 mg 2-03 tablet by ity of tablet 00:00: mouth [place] 00 every 6 Medical (six) Branch hours as needed for Nausea and Vomiting (N/V). 2021-02 Yes [id number] Take 1 Uni vers vit 2-03 combo pack ity of 33-iron-fol 00:00: daily [place] ic-dha 00 Medical (SELECT-OB Branch + DHA) 29 mg iron-1 mg -250 mg combo pack proMETHazin 2021-02 Yes [id number] 25mg Take 1 Univers e 25 mg 2-03 tablet by ity of tablet 00:00: mouth [place] 00 every 6 Medical (six) Branch hours as needed for Nausea and Vomiting (N/V). 2021-02 Yes [id number] Take 1 Uni vers vit 2-03 combo pack ity of 33-iron-fol 00:00: daily [place] ic-dha 00 Medical (SELECT-OB Branch + DHA) 29 mg iron-1 mg -250 mg combo pack proMETHazin 2021-02 Yes [id number] 25mg Take 1 Univers e 25 mg 2-03 tablet by ity of tablet 00:00: mouth [place] 00 every 6 Medical (six) Branch hours as needed for Nausea and Vomiting (N/V). 2021-02 Yes [id number] Take 1 Uni vers vit 2-03 combo pack ity of 33-iron-fol 00:00: daily [place] ic-dha 00 Medical (SELECT-OB Branch + DHA) 29 mg iron-1 mg -250 mg combo pack proMETHazin 2021-02 Yes [id number] 25mg Take 1 Univers e 25 mg 2-03 tablet by ity of tablet 00:00: mouth [place] 00 every 6 Medical (six) Branch hours as needed for Nausea and Vomiting (N/V). 2021-02 Yes [id number] Take 1 Uni vers vit 2-03 combo pack ity of 33-iron-fol 00:00: daily [place] ic-dha 00 Medical (SELECT-OB Branch + DHA) 29 mg iron-1 mg -250 mg combo pack proMETHazin 2021-02 Yes [id number] 25mg Take 1 Univers e 25 mg 2-03 tablet by ity of tablet 00:00: mouth [place] 00 every 6 Medical (six) Branch hours as needed for Nausea and Vomiting (N/V). 2021-02 Yes [id number] Take 1 Uni vers vit 2-03 combo pack ity of 33-iron-fol 00:00: daily [place] ic-dha 00 Medical (SELECT-OB Branch + DHA) 29 mg iron-1 mg -250 mg combo pack proMETHazin 2021-02 Yes [id number] 25mg Take 1 Univers e 25 mg 2-03 tablet by ity of tablet 00:00: mouth [place] 00 every 6 Medical (six) Branch hours as needed for Nausea and Vomiting (N/V). 2021-02 Yes [id number] Take 1 Uni vers vit 2-03 combo pack ity of 33-iron-fol 00:00: daily [place] ic-dha 00 Medical (SELECT-OB Branch + DHA) 29 mg iron-1 mg -250 mg combo pack proMETHazin 2021-02 Yes [id number] 25mg Take 1 Univers e 25 mg 2-03 tablet by ity of tablet 00:00: mouth [place] 00 every 6 Medical (six) Branch hours as needed for Nausea and Vomiting (N/V). 2021-02 Yes [id number] Take 1 Uni vers vit 2-03 combo pack ity of 33-iron-fol 00:00: daily [place] ic-dha 00 Medical (SELECT-OB Branch + DHA) 29 mg iron-1 mg -250 mg combo pack proMETHazin 2021-02 Yes [id number] 25mg Take 1 Univers e 25 mg 2-03 tablet by ity of tablet 00:00: mouth [place] 00 every 6 Medical (six) Branch hours as needed for Nausea and Vomiting (N/V). 2021-02 Yes [id number] Take 1 Uni vers vit 2-03 combo pack ity of 33-iron-fol 00:00: daily [place] ic-dha 00 Medical (SELECT-OB Branch + DHA) 29 mg iron-1 mg -250 mg combo pack proMETHazin 2021-02 Yes [id number] 25mg Take 1 Univers e 25 mg 2-03 tablet by ity of tablet 00:00: mouth [place] 00 every 6 Medical (six) Branch hours as needed for Nausea and Vomiting (N/V). 2021-02 Yes [id number] Take 1 Uni vers vit 2-03 combo pack ity of 33-iron-fol 00:00: daily [place] ic-dha 00 Medical (SELECT-OB Branch + DHA) 29 mg iron-1 mg -250 mg combo pack proMETHazin 2021-02 Yes [id number] 25mg Take 1 Univers e 25 mg 2-03 tablet by ity of tablet 00:00: mouth [place] 00 every 6 Medical (six) Branch hours as needed for Nausea and Vomiting (N/V). 2021-02 Yes [id number] Take 1 Uni vers vit 2-03 combo pack ity of 33-iron-fol 00:00: daily [place] ic-dha 00 Medical (SELECT-OB Branch + DHA) 29 mg iron-1 mg -250 mg combo pack proMETHazin 2021-02 Yes [id number] 25mg Take 1 Univers e 25 mg 2-03 tablet by ity of tablet 00:00: mouth [place] 00 every 6 Medical (six) Branch hours as needed for Nausea and Vomiting (N/V). 2021-02 Yes [id number] Take 1 Uni vers vit 2-03 combo pack ity of 33-iron-fol 00:00: daily [place] ic-dha 00 Medical (SELECT-OB Branch + DHA) 29 mg iron-1 mg -250 mg combo pack proMETHazin 2021-02 Yes [id number] 25mg Take 1 Univers e 25 mg 2-03 tablet by ity of tablet 00:00: mouth [place] 00 every 6 Medical (six) Branch hours as needed for Nausea and Vomiting (N/V). 2021-02 Yes [id number] Take 1 Uni vers vit 2-03 combo pack ity of 33-iron-fol 00:00: daily [place] ic-dha 00 Medical (SELECT-OB Branch + DHA) 29 mg iron-1 mg -250 mg combo pack proMETHazin 2021-02 Yes [id number] 25mg Take 1 Univers e 25 mg 2-03 tablet by ity of tablet 00:00: mouth [place] 00 every 6 Medical (six) Branch hours as needed for Nausea and Vomiting (N/V). 2021-02 Yes [id number] Take 1 Uni vers vit 2-03 combo pack ity of 33-iron-fol 00:00: daily [place] ic-dha 00 Medical (SELECT-OB Branch + DHA) 29 mg iron-1 mg -250 mg combo pack proMETHazin 2021-02 Yes [id number] 25mg Take 1 Univers e 25 mg 2-03 tablet by ity of tablet 00:00: mouth [place] 00 every 6 Medical (six) Branch hours as needed for Nausea and Vomiting (N/V). 2021-02 Yes [id number] Take 1 Uni vers vit 2-03 combo pack ity of 33-iron-fol 00:00: daily [place] ic-dha 00 Medical (SELECT-OB Branch + DHA) 29 mg iron-1 mg -250 mg combo pack proMETHazin 2021-02 Yes [id number] 25mg Take 1 Univers e 25 mg 2-03 tablet by ity of tablet 00:00: mouth [place] 00 every 6 Medical (six) Branch hours as needed for Nausea and Vomiting (N/V). 2021-02 Yes [id number] Take 1 Uni vers vit 2-03 combo pack ity of 33-iron-fol 00:00: daily [place] ic-dha 00 Medical (SELECT-OB Branch + DHA) 29 mg iron-1 mg -250 mg combo pack proMETHazin 2021-02 Yes [id number] 25mg Take 1 Univers e 25 mg 2-03 tablet by ity of tablet 00:00: mouth [place] 00 every 6 Medical (six) Branch hours as needed for Nausea and Vomiting (N/V). 2021-02 Yes [id number] Take 1 Uni vers vit 2-03 combo pack ity of 33-iron-fol 00:00: daily [place] ic-dha 00 Medical (SELECT-OB Branch + DHA) 29 mg iron-1 mg -250 mg combo pack proMETHazin 2021-02 Yes [id number] 25mg Take 1 Univers e 25 mg 2-03 tablet by ity of tablet 00:00: mouth [place] 00 every 6 Medical (six) Branch hours as needed for Nausea and Vomiting (N/V). 2021-02 Yes [id number] Take 1 Uni vers vit 2-03 combo pack ity of 33-iron-fol 00:00: daily [place] ic-dha 00 Medical (SELECT-OB Branch + DHA) 29 mg iron-1 mg -250 mg combo pack proMETHazin 2021-02 Yes [id number] 25mg Take 1 Univers e 25 mg 2-03 tablet by ity of tablet 00:00: mouth [place] 00 every 6 Medical (six) Branch hours as needed for Nausea and Vomiting (N/V). No known 2020-02 No Univers medications 2-16 ity of 14:27: [address] Branch No known 2020-02 No Univers medications 2-16 ity of 14:27: [address] No known 2020-02 No No known Unive rs medications 2-16 medication it y of 14:27: s [address] No known 2020-02 No Univers medications 2-16 ity of 14:27: [place] [address] Medical Branch phenazopyri 2018-0 Yes 200mg Take 1 Uni vers dine 200 mg 6-28 tablet by ity of tablet 00:00: mouth 3 [place] 00 (three) Medical times Branch daily. Nitrofurant 2018 Yes 100mg Take 1 Uni vers oin&Nit. 6-28 capsule by ity o f Macrocryst 00:00: [place] (MACROBID) 00 (two) Medical 100 mg times Branch capsule daily. naproxen Yes 550mg Take 1 Univer s sodium 550 6-28 tablet by ity of mg tablet 00:00: mouth 2 [place] 00 (two) Medical times Branch daily with meals. phenazopyri 2020- No 200mg Take 1 Un elizabeth dine 200 mg 6-28 12-27 tablet by it y of tablet 00:00: 00:00 mouth 3 [place] 00 :00 (three) Medical times Branch daily. Nitrofurant 2017- 2020- No 100mg Take 1 Un elizabeth oin&Nit. 6-28 12-27 capsule by ity of Macrocryst 00:00: 00:00 mouth 2 [place] (MACROBID) 00 :00 (two) Medical 100 mg times Branch capsule daily. naproxen 2020- No 550mg Take 1 Unive rs sodium 550 6-28 12-27 tablet by ity of mg tablet 00:00: 00:00 [place] 00 :00 (two) Medical times Branch daily with meals. promethazin 2017-0 Yes 5mL Take 5 mL U nivers e-codeine 1-11 by mouth 4 ity of 6.25-10 00:00: (four) [place] mg/5 mL 00 times Medical syrup daily as Branch needed for Cough. traMADOL 2017- Yes 50mg Take 1 Univers (ULTRAM) 50 1-11 tablet by ity of mg tablet 00:00: mouth [place] 00 every 6 Medical (six) Branch hours as needed for Pain (scale 4-6). promethazin 2019- No 5mL Take 5 mL Univers e-codeine 02-25 by mouth 4 ity of 6.25-10 00:00: 00:00 (four) [place] mg/5 mL 00 :00 times Medical syrup daily as Branch needed for Cough. traMADOL 2019- No 50mg Take 1 Univer s (ULTRAM) 50 02-25 tablet by it y of mg tablet 00:00: 00:00 mouth [place] 00 :00 every 6 Medical (six) Branch hours as needed for Pain (scale 4-6). No known No Univers medications ity of [facility] Immunizations Ordered Filled Immunization Date Status Comments [facility] e Immunization Name Name Influenza Virus 2022-03-19 Completed Universit y of Vaccine Quad IM, 00:00:00 [place] Me dical Preserv and ABX Branch Free 6 MO-64 YRS Influenza Virus 2022-03-19 Completed Universit y of Vaccine Quad IM, 00:00:00 [place] Me dical Preserv and ABX Branch Free 6 MO-64 YRS Influenza Virus 2022-03-19 Completed Universit y of Vaccine Quad IM, 00:00:00 [place] Me dical Preserv and ABX Branch Free 6 MO-64 YRS Influenza Virus 2022-03-19 Completed Universit y of Vaccine Quad IM, 00:00:00 [place] Me dical Preserv and ABX Branch Free 6 MO-64 YRS Influenza Virus 2022-03-19 Completed Universit y of Vaccine Quad IM, 00:00:00 [place] Me dical Preserv and ABX Branch Free 6 MO-64 YRS Influenza Virus 2022-03-19 Completed Universit y of Vaccine Quad IM, 00:00:00 [place] Me dical Preserv and ABX Branch Free 6 MO-64 YRS Influenza Virus 2022-03-19 Completed Universit y of Vaccine Quad IM, 00:00:00 [place] Me dical Preserv and ABX Branch Free 6 MO-64 YRS Influenza Virus 2022-03-19 Completed Universit y of Vaccine Quad IM, 00:00:00 [place] Me dical Preserv and ABX Branch Free 6 MO-64 YRS Influenza Virus 2022-03-19 Completed Universit y of Vaccine Quad IM, 00:00:00 [place] Me dical Preserv and ABX Branch Free 6 MO-64 YRS Influenza Virus 2022-03-19 Completed Universit y of Vaccine Quad IM, 00:00:00 [place] Me dical Preserv and ABX Branch Free 6 MO-64 YRS Influenza Virus 2022-03-19 Completed Universit y of Vaccine Quad IM, 00:00:00 [place] Me dical Preserv and ABX Branch Free 6 MO-64 YRS Influenza Virus 2022-03-19 Completed Universit y of Vaccine Quad IM, 00:00:00 [place] Me dical Preserv and ABX Branch Free 6 MO-64 YRS Influenza Virus 2022-03-19 Completed Universit y of Vaccine Quad IM, 00:00:00 [place] Me dical Preserv and ABX Branch Free 6 MO-64 YRS Influenza Virus 2022-03-19 Completed Universit y of Vaccine Quad IM, 00:00:00 [place] Me dical Preserv and ABX Branch Free 6 MO-64 YRS Influenza Virus 2022-03-19 Completed Universit y of Vaccine Quad IM, 00:00:00 [place] Me dical Preserv and ABX Branch Free 6 MO-64 YRS SARS-COV-2 COVID-19 2020-11-13 Completed Unive rsity of PFIZER VACCINE 00:00:00 [facility] SARS-COV-2 COVID-19 2020-11-13 Completed Unive rsity of PFIZER VACCINE 00:00:00 [facility] SARS-COV-2 COVID-19 2020-11-13 Completed Unive rsity of PFIZER VACCINE 00:00:00 [facility] SARS-COV-2 COVID-19 2020-11-13 Completed Unive rsity of PFIZER VACCINE 00:00:00 [facility] SARS-COV-2 COVID-19 2020-11-13 Completed Unive rsity of PFIZER VACCINE 00:00:00 [facility] SARS-COV-2 COVID-19 2020-11-13 Completed Unive rsity of PFIZER VACCINE 00:00:00 [facility] SARS-COV-2 COVID-19 2020-11-13 Completed Unive rsity of PFIZER VACCINE 00:00:00 [facility] SARS-COV-2 COVID-19 2020-11-13 Completed Unive rsity of PFIZER VACCINE 00:00:00 [facility] SARS-COV-2 COVID-19 2020-11-13 Completed Unive rsity of PFIZER VACCINE 00:00:00 [facility] SARS-COV-2 COVID-19 2020-11-13 Completed Unive rsity of PFIZER VACCINE 00:00:00 [facility] SARS-COV-2 COVID-19 2020-11-13 Completed Unive rsity of PFIZER VACCINE 00:00:00 [facility] SARS-COV-2 COVID-19 2020-11-13 Completed Unive rsity of PFIZER VACCINE 00:00:00 [facility] SARS-COV-2 COVID-19 2020-11-13 Completed Unive rsity of PFIZER VACCINE 00:00:00 [facility] SARS-COV-2 COVID-19 2020-11-13 Completed Unive rsity of PFIZER VACCINE 00:00:00 [facility] SARS-COV-2 COVID-19 2020-11-13 Completed Unive rsity of PFIZER VACCINE 00:00:00 [facility] SARS-COV-2 COVID-19 2020-11-13 Completed Unive rsity of PFIZER VACCINE 00:00:00 [facility] SARS-COV-2 COVID-19 2020-11-13 Completed Unive rsity of PFIZER VACCINE 00:00:00 [facility] SARS-COV-2 COVID-19 2020-11-13 Completed Unive rsity of PFIZER VACCINE 00:00:00 [facility] SARS-COV-2 COVID-19 2020-11-13 Completed Unive rsity of PFIZER VACCINE 00:00:00 [facility] SARS-COV-2 COVID-19 2020-10-23 Completed Unive rsity of PFIZER VACCINE 00:00:00 [facility] SARS-COV-2 COVID-19 2020-10-23 Completed Unive rsity of PFIZER VACCINE 00:00:00 [facility] SARS-COV-2 COVID-19 2020-10-23 Completed Unive rsity of PFIZER VACCINE 00:00:00 [facility] SARS-COV-2 COVID-19 2020-10-23 Completed Unive rsity of PFIZER VACCINE 00:00:00 [facility] SARS-COV-2 COVID-19 2020-10-23 Completed Unive rsity of PFIZER VACCINE 00:00:00 [facility] SARS-COV-2 COVID-19 2020-10-23 Completed Unive rsity of PFIZER VACCINE 00:00:00 [facility] SARS-COV-2 COVID-19 2020-10-23 Completed Unive rsity of PFIZER VACCINE 00:00:00 [facility] SARS-COV-2 COVID-19 2020-10-23 Completed Unive rsity of PFIZER VACCINE 00:00:00 [facility] SARS-COV-2 COVID-19 2020-10-23 Completed Unive rsity of PFIZER VACCINE 00:00:00 [facility] SARS-COV-2 COVID-19 2020-10-23 Completed Unive rsity of PFIZER VACCINE 00:00:00 [facility] SARS-COV-2 COVID-19 2020-10-23 Completed Unive rsity of PFIZER VACCINE 00:00:00 [facility] SARS-COV-2 COVID-19 2020-10-23 Completed Unive rsity of PFIZER VACCINE 00:00:00 [facility] SARS-COV-2 COVID-19 2020-10-23 Completed Unive rsity of PFIZER VACCINE 00:00:00 [facility] SARS-COV-2 COVID-19 2020-10-23 Completed Unive rsity of PFIZER VACCINE 00:00:00 [facility] SARS-COV-2 COVID-19 2020-10-23 Completed Unive rsity of PFIZER VACCINE 00:00:00 [facility] SARS-COV-2 COVID-19 2020-10-23 Completed Unive rsity of PFIZER VACCINE 00:00:00 [facility] SARS-COV-2 COVID-19 2020-10-23 Completed Unive rsity of PFIZER VACCINE 00:00:00 [facility] SARS-COV-2 COVID-19 2020-10-23 Completed Unive rsity of PFIZER VACCINE 00:00:00 [facility] SARS-COV-2 COVID-19 2020-10-23 Completed Unive rsity of PFIZER VACCINE 00:00:00 [facility] Influenza Virus 2016-11-18 Completed Universit y of Vaccine Quad IM 3+ 00:00:00 [facility] Influenza Virus 2016-11-18 Completed Universit y of Vaccine Quad IM 3+ 00:00:00 [facility] Influenza Virus 2016-11-18 Completed Universit y of Vaccine Quad IM 3+ 00:00:00 [facility] Influenza Virus 2016-11-18 Completed Universit y of Vaccine Quad IM 3+ 00:00:00 [facility] Influenza Virus 2016-11-18 Completed Universit y of Vaccine Quad IM 3+ 00:00:00 [facility] Influenza Virus 2016-11-18 Completed Universit y of Vaccine Quad IM 3+ 00:00:00 [facility] Influenza Virus 2016-11-18 Completed Universit y of Vaccine Quad IM 3+ 00:00:00 [facility] Influenza Virus 2016-11-18 Completed Universit y of Vaccine Quad IM 3+ 00:00:00 [facility] Influenza Virus 2016-11-18 Completed Universit y of Vaccine Quad IM 3+ 00:00:00 [facility] Influenza Virus 2016-11-18 Completed Universit y of Vaccine Quad IM 3+ 00:00:00 [facility] Influenza Virus 2016-11-18 Completed Universit y of Vaccine [facility] 3+ [facility]00 [facility] [place] Influenza Virus 2016-11-18 Completed Universit y of [facility] IM 3+ 00:00:00 [facility] [place] Influenza Virus 2016-11-18 Completed Universit y of Vacc[facility] IM 3+ 00:00:00 [facility] [place] Influenza Virus 2016-11-18 Completed Universit y of Vacc[facility] IM 3+ 00:00:00 [facility] [place] Influenza Virus 2016-11-18 Completed Universit y of Vacc[facility] IM 3+ 00:00:00 [facility] [place] Influenza Virus 2016-11-18 Completed Universit y of Vacc[facility] IM 3+ 00:00:00 [facility] [place] Influenza Virus 2016-11-18 Completed Universit y of Vaccine [facility] IM 3+ 00:00:00 [facility] [place] Influenza Virus 2016-11-18 Completed Universit y of Vaccine [facility] IM 3+ 00:00:00 [facility] [place] Influenza Virus 2016-11-18 Completed Universit y of Vaccine [facility] IM 3+ 00:00:00 [facility] [place] Influenza Virus 2016-11-18 Completed Universit y of Vaccine [facility] IM 3+ 00:00:00 [facility] [place] Influenza Virus 2016-11-18 Completed Universit y of Vaccine [facility] IM 3+ 00:00:00 [facility] [place] Influenza Virus 2016-11-18 Completed Universit y of Vaccine [facility] IM 3+ 00:00:00 [facility] [place] Influenza Virus 2016-11-18 Completed Universit y of Vaccine [facility] IM 3+ 00:00:00 [facility] [place] Influenza Virus 2016-11-18 Completed Universit y of Vaccine [facility] IM 3+ 00:00:00 [facility] [place] Influenza Virus 2016-11-18 Completed Universit y of Vaccine [facility] IM 3+ 00:00:00 [facility] [place] Influenza Virus 2016-11-18 Completed Universit y of Vaccine [facility] IM 3+ 00:00:00 [facility] [place] Influenza Virus 2016-11-18 Completed Universit y of Vaccine [facility] IM 3+ 00:00:00 [facility] [place] Influenza Virus 2016-11-18 Completed Universit y of Vaccine [facility] IM 3+ 00:00:00 [facility] [place] Influenza Virus 2016-11-18 Completed Universit y of Vaccine [facility] IM 3+ 00:00:00 [facility] [place] Influenza Virus 2016-11-18 Completed Universit y of [facility] IM 3+ 00:00:00 [facility] [place] Influenza Virus 2016-11-18 Completed Universit y of Vacc[facility] IM 3+ 00:00:00 [facility] [place] Influenza Virus 2016-11-18 Completed Universit y of Vacc[facility] IM 3+ 00:00:00 [facility] [place] Influenza Virus 2016-11-18 Completed Universit y of Vacc[facility] IM 3+ 00:00:00 [facility] [place] Influenza Virus 2016-11-18 Completed Universit y of Vaccine [facility] IM 3+ 00:00:00 [facility] [place] HPV9 2016-04-06 Completed University of 00:00:00 [facility] HPV9 2016-04-06 Completed University of 00:00:00 [facility] HPV9 2016-04-06 Completed University of 00:00:00 [facility] HPV9 2016-04-06 Completed University of 00:00:00 [facility] HPV9 2016-04-06 Completed University of 00:00:00 [facility] HPV9 2016-04-06 Completed University of 00:00:00 [facility] HPV9 2016-04-06 Completed University of 00:00:00 [facility] HPV9 2016-04-06 Completed University of 00:00:00 [facility] HPV9 2016-04-06 Completed University of 00:00:00 [facility] HPV9 2016-04-06 Completed University of 00:00:00 [facility] HPV9 2016-04-06 Completed University of 00:00:00 [facility] HPV9 2016-04-06 Completed University of 00:00:00 [facility] HPV9 2016-04-06 Completed University of 00:00:00 [facility] HPV9 2016-04-06 Completed University of 00:00:00 [facility] HPV9 2016-04-06 Completed University of 00:00:00 [facility] HPV9 2016-04-06 Completed University of 00:00:00 [facility] HPV9 2016-04-06 Completed University of 00:00:00 [facility] HPV9 2016-04-06 Completed University of 00:00:00 [facility] HPV9 2016-04-06 Completed University of 00:00:00 [facility] HPV9 2016-04-06 Completed University of 00:00:00 [facility] HPV9 2016-04-06 Completed University of 00:00:00 [facility] HPV9 2016-04-06 Completed University of 00:00:00 [facility] HPV9 2016-04-06 Completed University of 00:00:00 [facility] HPV9 2016-04-06 Completed University of 00:00:00 [facility] HPV9 2016-04-06 Completed University of 00:00:00 [facility] HPV9 2016-04-06 Completed University of 00:00:00 [facility] HPV9 2016-04-06 Completed University of 00:00:00 [facility] HPV9 2016-04-06 Completed University of 00:00:00 [facility] HPV9 2016-04-06 Completed University of 00:00:00 [facility] HPV9 2016-04-06 Completed University of 00:00:00 [facility] HPV9 2016-04-06 Completed University of 00:00:00 [facility] HPV9 2016-04-06 Completed University of 00:00:00 [facility] HPV9 2016-04-06 Completed University of 00:00:00 [facility] HPV9 2016-04-06 Completed University of 00:00:00 [facility] HPV9 2016-01-06 Completed University of 00:00:00 [facility] HPV9 2016-01-06 Completed University of 00:00:00 [facility] HPV9 2016-01-06 Completed University of 00:00:00 [facility] HPV9 2016-01-06 Completed University of 00:00:00 [facility] HPV9 2016-01-06 Completed University of 00:00:00 [facility] HPV9 2016-01-06 Completed University of 00:00:00 [facility] HPV9 2016-01-06 Completed University of 00:00:00 [facility] HPV9 2016-01-06 Completed University of 00:00:00 [facility] HPV9 2016-01-06 Completed University of 00:00:00 [facility] HPV9 2016-01-06 Completed University of 00:00:00 [facility] HPV9 2016-01-06 Completed University of 00:00:00 [facility] HPV9 2016-01-06 Completed University of 00:00:00 [facility] HPV9 2016-01-06 Completed University of 00:00:00 [facility] HPV9 2016-01-06 Completed University of 00:00:00 [facility] HPV9 2016-01-06 Completed University of 00:00:00 [facility] HPV9 2016-01-06 Completed University of 00:00:00 [facility] HPV9 2016-01-06 Completed University of 00:00:00 [facility] HPV9 2016-01-06 Completed University of 00:00:00 [facility] HPV9 2016-01-06 Completed University of 00:00:00 [facility] HPV9 2016-01-06 Completed University of 00:00:00 [facility] HPV9 2016-01-06 Completed University of 00:00:00 [facility] HPV9 2016-01-06 Completed University of 00:00:00 [facility] HPV9 2016-01-06 Completed University of 00:00:00 [facility] HPV9 2016-01-06 Completed University of 00:00:00 [facility] HPV9 2016-01-06 Completed University of 00:00:00 [facility] HPV9 2016-01-06 Completed University of 00:00:00 [facility] HPV9 2016-01-06 Completed University of 00:00:00 [facility] HPV9 2016-01-06 Completed University of 00:00:00 [facility] HPV9 2016-01-06 Completed University of 00:00:00 [facility] HPV9 2016-01-06 Completed University of 00:00:00 [facility] HPV9 2016-01-06 Completed University of 00:00:00 [facility] HPV9 2016-01-06 Completed University of 00:00:00 [facility] HPV9 2016-01-06 Completed University of 00:00:00 [facility] HPV9 2016-01-06 Completed University of 00:00:00 [facility] HPV9 2015-10-03 Completed University of 00:00:00 [facility] HPV9 2015-10-03 Completed University of 00:00:00 [facility] HPV9 2015-10-03 Completed University of 00:00:00 [facility] HPV9 2015-10-03 Completed University of 00:00:00 [facility] HPV9 2015-10-03 Completed University of 00:00:00 [facility] HPV9 2015-10-03 Completed University of 00:00:00 [facility] HPV9 2015-10-03 Completed University of 00:00:00 [facility] HPV9 2015-10-03 Completed University of 00:00:00 [facility] HPV9 2015-10-03 Completed University of 00:00:00 [facility] HPV9 2015-10-03 Completed University of 00:00:00 [facility] HPV9 2015-10-03 Completed University of 00:00:00 [facility] HPV9 2015-10-03 Completed University of 00:00:00 [facility] HPV9 2015-10-03 Completed University of 00:00:00 [facility] HPV9 2015-10-03 Completed University of 00:00:00 [facility] HPV9 2015-10-03 Completed University of 00:00:00 [facility] HPV9 2015-10-03 Completed University of 00:00:00 [facility] HPV9 2015-10-03 Completed University of 00:00:00 [facility] HPV9 2015-10-03 Completed University of 00:00:00 [facility] HPV9 2015-10-03 Completed University of 00:00:00 [facility] HPV9 2015-10-03 Completed University of 00:00:00 [facility] HPV9 2015-10-03 Completed University of 00:00:00 [facility] HPV9 2015-10-03 Completed University of 00:00:00 [facility] HPV9 2015-10-03 Completed University of 00:00:00 [facility] HPV9 2015-10-03 Completed University of 00:00:00 [facility] HPV9 2015-10-03 Completed University of 00:00:00 [facility] HPV9 2015-10-03 Completed University of 00:00:00 [facility] HPV9 2015-10-03 Completed University of 00:00:00 [facility] HPV9 2015-10-03 Completed University of 00:00:00 [facility] HPV9 2015-10-03 Completed University of 00:00:00 [facility] HPV9 2015-10-03 Completed University of 00:00:00 [facility] HPV9 2015-10-03 Completed University of 00:00:00 [facility] HPV9 2015-10-03 Completed University of 00:00:00 [facility] HPV9 2015-10-03 Completed University of 00:00:00 [facility] HPV9 2015-10-03 Completed University of 00:00:00 [facility] MMR 2014-06-28 Completed University of 00:00:00 [facility] MMR 2014-06-28 Completed University of 00:00:00 [facility] MMR 2014-06-28 Completed University of 00:00:00 [facility] MMR 2014-06-28 Completed University of 00:00:00 [facility] MMR 2014-06-28 Completed University of 00:00:00 [facility] MMR 2014-06-28 Completed University of 00:00:00 [facility] MMR 2014-06-28 Completed University of 00:00:00 [facility] MMR 2014-06-28 Completed University of 00:00:00 [facility] MMR 2014-06-28 Completed University of 00:00:00 [facility] MMR 2014-06-28 Completed University of 00:00:00 [facility] MMR 2014-06-28 Completed University of 00:00:00 [facility] MMR 2014-06-28 Completed University of 00:00:00 [facility] MMR 2014-06-28 Completed University of 00:00:00 [facility] MMR 2014-06-28 Completed University of 00:00:00 [facility] MMR 2014-06-28 Completed University of 00:00:00 [facility] MMR 2014-06-28 Completed University of 00:00:00 [facility] MMR 2014-06-28 Completed University of 00:00:00 [facility] MMR 2014-06-28 Completed University of 00:00:00 [facility] MMR 2014-06-28 Completed University of 00:00:00 [facility] MMR 2014-06-28 Completed University of 00:00:00 [facility] MMR 2014-06-28 Completed University of 00:00:00 [facility] MMR 2014-06-28 Completed University of 00:00:00 [facility] MMR 2014-06-28 Completed University of 00:00:00 [facility] MMR 2014-06-28 Completed University of 00:00:00 [facility] MMR 2014-06-28 Completed University of 00:00:00 [facility] MMR 2014-06-28 Completed University of 00:00:00 [facility] MMR 2014-06-28 Completed University of 00:00:00 [facility] MMR 2014-06-28 Completed University of 00:00:00 [facility] MMR 2014-06-28 Completed University of 00:00:00 [facility] MMR 2014-06-28 Completed University of 00:00:00 [facility] MMR 2014-06-28 Completed University of 00:00:00 [facility] MMR 2014-06-28 Completed University of 00:00:00 [facility] MMR 2014-06-28 Completed University of 00:00:00 [facility] MMR 2014-06-28 Completed University of 00:00:00 [facility] TDAP 2014-03-18 Completed University of 00:00:00 [facility] TDAP 2014-03-18 Completed University of 00:00:00 [facility] TDAP 2014-03-18 Completed University of 00:00:00 [facility] TDAP 2014-03-18 Completed University of 00:00:00 [facility] TDAP 2014-03-18 Completed University of 00:00:00 [facility] TDAP 2014-03-18 Completed University of 00:00:00 [facility] TDAP 2014-03-18 Completed University of 00:00:00 [facility] TDAP 2014-03-18 Completed University of 00:00:00 [facility] TDAP 2014-03-18 Completed University of 00:00:00 [facility] TDAP 2014-03-18 Completed University of 00:00:00 [facility] TDAP 2014-03-18 Completed University of 00:00:00 [facility] TDAP 2014-03-18 Completed University of 00:00:00 [facility] TDAP 2014-03-18 Completed University of 00:00:00 [facility] TDAP 2014-03-18 Completed University of 00:00:00 [facility] TDAP 2014-03-18 Completed University of 00:00:00 [facility] TDAP 2014-03-18 Completed University of 00:00:00 [facility] TDAP 2014-03-18 Completed University of 00:00:00 [facility] TDAP 2014-03-18 Completed University of 00:00:00 [facility] TDAP 2014-03-18 Completed University of 00:00:00 [facility] TDAP 2014-03-18 Completed University of 00:00:00 [facility] TDAP 2014-03-18 Completed University of 00:00:00 [facility] TDAP 2014-03-18 Completed University of 00:00:00 [facility] TDAP 2014-03-18 Completed University of 00:00:00 [facility] TDAP 2014-03-18 Completed University of 00:00:00 [facility] TDAP 2014-03-18 Completed University of 00:00:00 [facility] TDAP 2014-03-18 Completed University of 00:00:00 [facility] TDAP 2014-03-18 Completed University of 00:00:00 [facility] TDAP 2014-03-18 Completed University of 00:00:00 [facility] TDAP 2014-03-18 Completed University of 00:00:00 [facility] TDAP 2014-03-18 Completed University of 00:00:00 [facility] TDAP 2014-03-18 Completed University of 00:00:00 [facility] TDAP 2014-03-18 Completed University of 00:00:00 [facility] TDAP 2014-03-18 Completed University of 00:00:00 [facility] TDAP 2014-03-18 Completed University of 00:00:00 [facility] Vital Signs Vital Name Observation Time Observation Value Comments Source Systolic blood 2022-04-16 16:47:00 108 mm[Hg] Univer sity of pressure [facility] Diastolic blood 2022-04-16 16:47:00 73 mm[Hg] Unive rsity of pressure [facility] Heart rate 2022-04-16 16:47:00 67 /min Universi [facility] Body temperature 2022-04-16 16:47:00 36.89 Leigh Univ ersity [facility] Respiratory rate 2022-04-16 16:47:00 17 /[facility] 2022-04-16 16:47:00 165.1 cm Universi ty of [facility] Body weight 2022-04-16 16:47:00 72.213 kg [facility] BMI 2022-04-16 16:47:00 26.49 kg/m2 [facility] Systolic blood 2022-03-19 20:31:00 114 mm[Hg] Univer sity of pressure [facility] Diastolic blood 2022-03-19 20:31:00 77 mm[Hg] Unive rsity of pressure [facility] Heart rate 2022-03-19 20:31:00 81 /min [facility]i ty [facility] Body temperature 2022-03-19 20:31:00 36.56 Leigh Univ ersity of [facility] Respiratory rate 2022-03-19 20:31:00 18 /min Univ ersity of [facility] Body height 2022-03-19 20:31:00 165.1 cm [facility] Body weight 2022-03-19 20:31:00 70.035 kg [facility]i [facility] BMI 2022-03-19 20:31:00 25.69 kg/m2 [facility] Systolic blood 2022-02-24 20:07:00 138 mm[Hg] Univer sity of pressure [facility] Diastolic blood 2022-02-24 20:07:00 87 mm[Hg] Unive rsity of pressure [facility] Heart rate 2022-02-24 20:07:00 95 /min [facility]i ty [facility] Body temperature 2022-02-24 20:07:00 36.72 Leigh Univ ersity of [facility] Respiratory rate 2022-02-24 20:07:00 18 /min Univ ersity of [facility] Body height 2022-02-24 20:07:00 165.1 cm [facility] Body weight 2022-02-24 20:07:00 68.068 kg [facility] BMI 2022-02-24 20:07:00 24.97 kg/m2 [facility] Systolic blood 2022-01-17 16:46:00 128 mm[Hg] Univer sity of pressure [facility] Diastolic blood 2022-01-17 16:46:00 87 mm[Hg] Unive rsity of pressure [facility] Heart rate 2022-01-17 16:45:00 69 /min Universi ty of [facility] Body temperature 2022-01-17 16:45:00 36.5 Leigh Univ ersity of [facility] Respiratory rate 2022-01-17 16:45:00 20 /min Univ ersity of [facility] Body height 2022-01-17 16:45:00 165.1 cm [facility] Body weight 2022-01-17 16:45:00 67.405 kg [facility]i [facility] BMI 2022-01-17 16:45:00 24.73 kg/m2 [facility] ty [facility] Oxygen saturation in 2021-01-30 20:01:00 97 /min University of Arterial blood by [facility] Pulse oximetry Branch Systolic blood 2021-01-30 20:01:00 132 mm[Hg] Univer sity of pressure [facility] Diastolic blood 2021-01-30 20:01:00 72 mm[Hg] Unive rsity of pressure [facility] Heart rate 2021-01-30 20:01:00 88 /min [facility]i ty [facility] Body temperature 2021-01-30 20:01:00 37.11 Leigh Univ ersity of [facility] Respiratory rate 2021-01-30 20:01:00 18 /min Univ ersity of [facility] Body height 2021-01-30 20:01:00 165.1 cm [facility] Body weight 2021-01-30 20:01:00 67.217 kg [facility] BMI 2021-01-30 20:01:00 24.66 kg/m2 [facility] Systolic blood 2020-02-11 21:15:00 135 mm[Hg] Univer sity of pressure [facility] Diastolic blood 2020-02-11 21:15:00 95 mm[Hg] Unive rsity of pressure [facility] Oxygen saturation in 2020-02-11 21:15:00 99 /min University of Arterial blood by [email or web address] [facility] Pulse oximetry Branch Heart rate 2020-02-11 19:35:00 98 /min [facility]i ty [facility] Body temperature 2020-02-11 19:35:00 37 Leigh [facility] Respiratory rate 2020-02-11 19:35:00 18 /min [facility] Body weight 2020-02-11 19:35:00 70.761 kg [facility] Systolic blood 2020-02-11 21:15:00 135 mm[Hg] Univer sity of [facility] Diastolic blood 2020-02-11 21:15:00 95 mm[Hg] [facility] Oxygen saturation in 2020-02-11 21:15:00 99 /min [facility] Arterial blood by [facility] Pulse oximetry Branch Heart rate 2020-02-11 19:35:00 98 /min [facility] Body temperature 2020-02-11 19:35:00 37 Leigh [facility] Respiratory rate 2020-02-11 19:35:00 18 /min [facility] Body weight 2020-02-11 19:35:00 70.761 kg [facility] Procedures Procedure Date / Time Performed Performing Clinician Sourc e POCT URINALYSIS W/O 2022-04-16 16:48:00 Reena Chung [facility] MATERNAL SERUM SCREEN 2022-04-16 00:00:00 [facility] 1-Q [facility] SCANNED LAB RESULTS 2022-03-20 06:01:00 Doctor Unassigned, No [facility] FLU VACC ([id number]), 2022-03-19 23:20:50 [facility] 6 MO-64 YRS, .5ML, IM, Medical [place] QUAD (FLUCELVAX) POCT URINALYSIS W/O 2022-03-19 00:00:00 Qing Morley [facility] POCT URINALYSIS 2022-02-24 20:00:00 Myriam Roland [facility] POCT TEST 2022-01-17 16:39:00 Shi Manzano [facility] POCT URINALYSIS W/O 2022-01-17 16:39:00 Shi Manz[place] SPECIFIC GRAVITY [facility] ASSIGNMENT OF BENEFITS 2022-01-17 16:30:59 Doctor Unassigned, No [facility] Name Medical Branch POCT MOLECULAR FLU 2021-01-30 20:13:00 Hao Nieto Universit y of [facility] POCT MOLECULAR STREP 2021-01-30 20:10:00 Hao Nieto Univers ity [facility] POCT TEST 2020-02-11 20:10:00 Samia Tejada [facility] NOTICE OF PRIVACY 2020-02-11 19:30:19 Doctor Unassigned, No [facility] PRACTICES Name [facility] CONSENT/REFUSAL FOR 2020-02-11 19:30:04 [facility] TREATMENT Encounters Start End Encounter Admission Attending Care Care Encounter Source Date/Time Date/Time Type Type Clinicians Facility Department ID 2020-12-14 Emergency [facility] [id number] Univers 13:13:53 ity [facility] 2022-05-07 2022-05-07 Outpatient P [facility] [id number] Univers 08:00:00 08:00:00 ity [facility] 2022-04-20 2022-04-20 Outpatient R [facility] [id number] Univers 15:00[facility]00 [facility] 2022-04-20 Telephone Qing Morley [facility] [id number] Univers 00:00:00 00:00:00 [place] [id number] i [id number] [id number] Wy dical NAL [address] [place] [address] 2022-04-20 2022-04-20 Patient Qing Morley [facility] [id number] Univers 00:00:00 00:00:00 Secure Msg [place] [id number] [place]y [id number] [id number] Wy dical NAL [address] [place] [address] 2022-04-16 2022-04-16 Outpatient R JULIET [facility] [id number] Univers 10:45:00 11:03:05 REENA ity [facility] 2022-04-16 2022-04-16 Routine [facility] [id number] Univers 10:45:00 11:03:05 Reena [place] [id number] ity [id number] [id number] Wy dical [address] 2022-04-16 2022-04-16 [facility] [id number] Univers 00:00:00 00:00:00 Reena [place] [id number] [id number] [id number] Wy dic[address] 2022-04-16 2022-04-16 Orders Qing Morley [id number] Univers 00:00:00 00:00:00 Only Cam [place] [id number] it y of HOSPITAL 4.2.7.2.686 Armin as [id number] [address] 2022-04-15 2022-04-15 Outpatient P [facility] [id number] Univers 11:00:00 11:00:00 ity of [facility] 2022-03-30 2022-03-30 Telephone Qing Morley [facility] [id number] Univers 00:00:00 00:00:00 [place] [id number] i ty [facility] [id number] [id number] Wy dical NAL [address] [place] [address] 2022-03-30 2022-03-30 Telephone Qing Morley [facility] [id number] Univers 00:00:00 00:00:00 [place] [id number] i ty [facility] [id number] [id number] Wy dical NAL [address] [place] [address] 2022-03-24 2022-03-24 Outpatient R CONCHARON [facility] [id number] Univers 12:45:00 12:45:00 MYRIAM ity o f [facility] 2022-03-20 2022-03-20 Software 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 Architect 2, Adc Lab [facility] 1.2.840.114 [id number] Univers 11:00:00 11:15:00 Visit Qing Morley 350.1.13.10 [place] [phone] [address] 2022-03-20 2022-03-20 Outpatient R QING MORLEY [facility] [id number] Univers 11:00:00 11:00:00 ity of [facility] 2022-03-20 2022-03-20 Orders Doctor EVAN 1.2.840.114 [id number] Univers 00:00:00 00:00:00 Only Unassigned, COLT 350.1.13.10 ity of [place] [facility] 4.2.7.2.686 Armin as [id number] [address] 2022-03-19 2022-03-19 Outpatient R QING MORLEY [facility] [id number] Univers 14:00:00 15:23:42 ity of [facility] 2022-03-19 2022-03-19 Initial Christopher Qing [facility] [id number] [id number] Univers 14:00:00 15:23:42 Cam [place] 350.1.13.10 [place] [id number] Wy dical [address] 2022-03-16 2022-03-16 Patient Qing Morley [facility] 1.2.426.929 [id number] Univers 00:00:00 00:00:00 Secure Msg Cam [place] 350.1.13.10 [place] [id number] Wy dical NAL 134 [facility] 2022-03-04 2022-03-04 Outpatient R QING MORLEY [facility] [id number] Univers 10:00:00 10:00:00 ity of [facility] 2022-02-26 2022-02-26 Telephone [facility] 1.2.840.114 [id number] Univers 00:00:00 00:00:00 Myriam C ASSISTANT GM OF CONTENT & DELIVERY 350.1.13.10 ity of [facility] 4.2.7.2.686 Amrin as MATERNAL [phone] [facility] & CHILD [address] [place] [address] 2022-02-24 2022-02-24 Outpatient R [facility] [id number] Univers 14:00:00 14:50:28 MYRIAM ity o f [facility] 2022-02-24 2022-02-24 Routine [facility] 1.2.648.030 [id number] Univers 14:00:00 14:50:28 Myriam C ASSISTANT GM OF CONTENT & DELIVERY 350.1.13.10 ity of Visit REGIONAL 4.2.7.2.686 Armin as MATERNAL [id number] [facility] & [address] 2022-02-16 2022-02-16 Outpatient R AKINPE, [facility] [id number] Univers 10:30:00 10:30:00 MYRIAM ity o f [facility] 2022-01-31 2022-01-31 Nurse EVAN Oropeza 1.2.840.114 [id number] Univers 00:00:00 00:00:00 Triage Anemarye COLT 350.1.13.10 ity of [facility] 4.2.7.2.686 Armin as [id number] [address] 2022-01-29 2022-01-29 Telephone [facility] 1.2.840.114 [id number] Univers 00:00:00 00:00:00 Myriam C ASSISTANT GM OF CONTENT & DELIVERY 350.1.13.10 ity of [facility] 4.2.7.2.686 Armin as MATERNAL [id number] [facility] [place] & CHILD [address] [place] [address] 2022-01-29 2022-01-29 Patient SHIRLEY Mccoy 1.2.326.595 [id number] Univers 00:00:00 00:00:00 Secure Msg Radha Y HEALTH 350.1.13.10 ity of [place] [id number] [facility] [address] 2022-01-17 2022-01-17 Outpatient R DARISU MECINDY [facility] [id number] Univers 10:30:00 11:46:56 RADHA ity of [facility] 2022-01-17 2022-01-17 Initial [facility] 1 .2.840.114 [id number] Univers 10:30:00 11:46:56 Darius Radha ASSISTANT GM OF CONTENT & DELIVERY 350.1.13.10 ity of Visit [facility] 4.2.7.2.686 Armin as MATERNAL [id number] Med ical & CHILD [address] [place] [address] 2022-01-17 2022-01-17 Orders Doctor EVAN 1.2.840.114 [id number] Univers 00:00:00 00:00:00 Only Unassigned, COLT 350.1.13.10 ity of [place] [facility] 4.2.7.2.686 Armin as [phone] [facility] [address] [place] 2021-02-01 2021-02-01 Telephone Emilia [facility] 1.2.840.114 [id number] Univers 00:00:00 00:00:00 [facility] 350.1.13.10 it y of [place] 4.2.7.2.686 Armin as OMER?BLEA [phone] [address] MEDICAL OFFICE BUILDING 2021-01-31 2021-01-31 Telephone EVAN Kwong 1.2.679.898 [id number] Univers 00:00:00 00:00:00 Shaniqua GREGORY 350.1.13.10 ity of [facility] 4.2.7.2.686 Armin as [phone] [facility] [address] [place] 2021-01-30 2021-01-30 Outpatient R JERARDO NIETO [facility] [id number] Univers 14:00:00 14:30:12 HAO ity [facility] 2021-01-30 2021-01-30 Urgent Emilia [facility] 1.2.840.114 [id number] Univers 14:00:00 14:20:00 Care [facility] 350.1.13.10 it y of [place] 4.2.7.2.686 Armin as OMER?BLEA [phone] Wy dical [address] MEDICAL OFFICE BUILDING 2020-07-26 2020-07-26 Outpatient R QING MORLEY [facility] [id number] [facility] 15:00:00 15:00:00 ity of [facility] 2020-07-24 2020-07-24 [facility] 1.2.840.114 [id number] 00:00:00 00:00:00 Cam [place] 350.1.13.10 [place] 4.2.7.2.686 Professio [id number] [address] 2020-07-24 2020-07-24 Telephone [facility] 1.2.840.114 [id number] [facility] 00:00:00 00:00:00 Cam [place] 350.1.13.10 i ty of [place] [phone] Wy dicsowmya [address] 2020-02-11 2020-02-11 Emergency [facility] 1.2.274.773 [id number] 13:37:00 15:17:00 Samia Up 350.1.13.10 [place] 4.2.7.2.686 [place] [id number] [facility] 2020-02-11 2020-02-11 Emergency [facility] 1.2.548.612 [id number] [facility] 13:37:00 15:17:00 Samia Up 350.1.13.10 ity of [place] [id number] [address] 2020-02-11 2020-02-11 Orders Doctor GORDON 1.2.840.114 [id number] 00:00:00 00:00:00 Only Unassigned, COLT 350.1.13.10 [place] [facility] 4.2.7.2.686 [id number] [facility] 2020-02-11 2020-02-11 Orders Doctor GORDON 1.2.840.114 [id number] Univers 00:00:00 00:00:00 Only Unassigned, COLT 350.1.13.10 ity of [place] [facility] 4.2.7.2.686 Armin as [phone] [place] [address] [place] Results Test Description Test Time Test Comments Results Result Comments Source MATERNAL SERUM SCREEN 1-Q 2022-04-18 10:00:00 Test Item Value Reference Range Interpretation Comme nts INTERPRETATION:-Q (test code SEE NOTE Screen negative for open = 05248-3) NTD. MSAFP RISK OPEN NTD-Q (test <1 IN 5000 code = 07824-7) $MSAFP-Q (test code = 44.2 ng/mL 1834-1) ADJ MULTIPLE OF MEDIAN-Q 0.74 (test code = 41525-2) -Q (test code = 8251-1) See Below Thi s is a screening test, not a diagnosti c test. Thisrisk assess ment report is based in part o n demographicdata provided by the ordering ph ysician. Please notifyth e laboratory promptly if any data are incorrect. Fora ssistance with recalculations, please call your [facility]. For assistance withinterpretat ion of these results, please contact [facility] genetic sexual assault counsellor or or [phone]-[facility]([phone]). Interpreti ve CutoffsScreen P ositive for Open NTD: > or = 2.50 adjusted MOM ?> or = 1.90 adjusted MOM fo r ?insulin-depend ent diabetics ?> or = 4.00 ad justed MOM for ?twins ?> or = 3 .50 adjusted MOM for ?twins insulin-depende nt ?diabetics ?> or = 4.50 adjus jaden MOM for ?tripletsFor ad ditional information, pl ease refer tohttp://educat ion.Urge/faq/ QNS26e9(This link is being p rovided for informational/e ducational purposes only.) GESTATIONAL AGE-Q (test code 20.1 weeks = 06939-8) MATERNAL WEIGHT-Q (test code 159 lbs = 3142-7) EST'D DATE OF DELIVERY-Q 09/02/2022 (test code = 54476-3) LAVONNE DETERMINED BY-Q (test LMP code = 95540-3) MOTHER'S ETHNIC ORIGIN-Q (test code = 09671-8) NUMBER OF FETUSES-Q (test 1 code = 21946-5) INSULIN-DEPEND DIABETIC-Q NO (test code = 22393-7) REPEAT SPECIMEN-Q (test code NO = 51354-9) HX OF NEURAL TUBE DEFECTS-Q NO (test code = 80105-9) PREV DOWN SYND-Q NO (test code = 60804-0) DONOR EGG-Q (test code = NO 65349-3) DONOR AGE: EGG RETRIEVAL-Q NOT GIVEN (test code = 56999-2) IGNACIA (test code = IGNACIA) PERFORMED BY [facility]; [address] [place] [phone]; MULUGETA KINGSTON MD [facility] URINALYSIS W/O SPECIFIC [id number] 16:48:00 Test Item Value Reference Range Interpretation Comments POCT PH U (test code = 3254) n/a 5-8 POCT U LEUK EST (test code = n/a Negative - Negative 3263) POCT U NIT (test code = 3262) n/a Negative - Negative POCT U PROT (test code = 3259) negative Negative - Negative POCT U GLU (test code = 3256) negative Negative - Negative POCT U KETONE (test code = 3258) n/a Negative - Negative POCT U BLD (test code = 3257) n/a Negative - Negative [facility] URINALYSIS W/O SPECIFIC [id number] 20:31:00 Test Item Value Reference Range Interpretation Comments POCT PH U (test code = 3254) 5 mg/dl 5-8 POCT U LEUK EST (test code = negative Negative - Negative 3263) POCT U NIT (test code = 3262) negative Negative - Negative POCT U PROT (test code = 3259) negative Negative - Negative POCT U GLU (test code = 3256) negative Negative - Negative POCT U KETONE (test code = 3258) negative Negative - Negative POCT U BLD (test code = 3257) negative Negative - Negative [facility] URINALYSIS W SPECIFIC [id number] 20:01:00 Test Item Value Reference Range Interpretation Comments POCT U SP GRAV (test code = 3255) . 1.005-1.025 POCT PH U (test code = 3254) . 5-8 POCT U LEUK EST (test code = 3263) . Negative - Negative POCT U NIT (test code = 3262) . Negative - Negative POCT U PROT (test code = 3259) 1+ Negative - Negative POCT U GLU (test code = 3256) Neg Negative - Negative POCT U KETONE (test code = 3258) . Negative - Negative POCT U UROBILI (test code = 3260) . 0.2-1 POCT U BILI (test code = 3261) . Negative - Negative POCT U BLD (test code = 3257) . Negative - Negative POCT U COLOR (test code = 3266) . POCT U APPEAR (test code = 3267) . [facility] URINALYSIS W SPECIFIC [id number] 20:01:00 Test Item Value Reference Range Interpretation Comments POCT U SP GRAV (test code = 3255) . 1.005-1.025 POCT PH U (test code = 3254) . 5-8 POCT U LEUK EST (test code = 3263) . Negative - Negative POCT U NIT (test code = 3262) . Negative - Negative POCT U PROT (test code = 3259) 1+ Negative - Negative POCT U GLU (test code = 3256) Neg Negative - Negative POCT U KETONE (test code = 3258) . Negative - Negative POCT U UROBILI (test code = 3260) . 0.2-1 POCT U BILI (test code = 3261) . Negative - Negative POCT U BLD (test code = 3257) . Negative - Negative POCT U COLOR (test code = 3266) . POCT U APPEAR (test code = 3267) . [facility] [id number] 16:39:00 Test Item Value Reference Range Interpretation Comments POCT PREG (test code = 1605) Positive On board controls acceptable with C Yes Line (test code = 3574) POCT PREG LOT # (test code = 3575) POCT PREG TEST DATE (test code = 3576) [facility] URINALYSIS W/O SPECIFIC [id number] 16:39:00 Test Item Value Reference Range Interpretation Comments POCT PH U (test code = 3254) 7 mg/dl 5-8 POCT U LEUK EST (test code = negative Negative - Negative 3263) POCT U NIT (test code = 3262) negative Negative - Negative POCT U PROT (test code = 3259) trace Negative - Negative POCT U GLU (test code = 3256) negative Negative - Negative POCT U KETONE (test code = 3258) negative Negative - Negative POCT U BLD (test code = 3257) negative Negative - Negative [facility] [id number] 16:39:00 Test Item Value Reference Range Interpretation Comments POCT PREG (test code = 1605) Positive On board controls acceptable with C Yes Line (test code = 3574) POCT PREG LOT # (test code = 3575) POCT PREG TEST DATE (test code = 3576) [facility] URINALYSIS W/O SPECIFIC [id number] 16:39:00 Test Item Value Reference Range Interpretation Comments POCT PH U (test code = 3254) 7 mg/dl 5-8 POCT U LEUK EST (test code = negative Negative - Negative 3263) POCT U NIT (test code = 3262) negative Negative - Negative POCT U PROT (test code = 3259) trace Negative - Negative POCT U GLU (test code = 3256) negative Negative - Negative POCT U KETONE (test code = 3258) negative Negative - Negative POCT U BLD (test code = 3257) negative Negative - Negative [facility] [id number] 16:39:00 Test Item Value Reference Range Interpretation Comments POCT PREG (test code = 1605) Positive On board controls acceptable with C Yes Line (test code = 3574) POCT PREG LOT # (test code = 3575) POCT PREG TEST DATE (test code = 3576) [facility] URINALYSIS W/O SPECIFIC [id number] 16:39:00 Test Item Value Reference Range Interpretation Comments POCT PH U (test code = 3254) 7 mg/dl 5-8 POCT U LEUK EST (test code = negative Negative - Negative 3263) POCT U NIT (test code = 3262) negative Negative - Negative POCT U PROT (test code = 3259) trace Negative - Negative POCT U GLU (test code = 3256) negative Negative - Negative POCT U KETONE (test code = 3258) negative Negative - Negative POCT U BLD (test code = 3257) negative Negative - Negative [facility] [id number] 16:39:00 Test Item Value Reference Range Interpretation Comments POCT PREG (test code = 1605) Positive On board controls acceptable with C Yes Line (test code = 3574) POCT PREG LOT # (test code = 3575) POCT PREG TEST DATE (test code = 3576) [facility] URINALYSIS W/O SPECIFIC [id number] 16:39:00 Test Item Value Reference Range Interpretation Comments POCT PH U (test code = 3254) 7 mg/dl 5-8 POCT U LEUK EST (test code = negative Negative - Negative 3263) POCT U NIT (test code = 3262) negative Negative - Negative POCT U PROT (test code = 3259) trace Negative - Negative POCT U GLU (test code = 3256) negative Negative - Negative POCT U KETONE (test code = 3258) negative Negative - Negative POCT U BLD (test code = 3257) negative Negative - Negative [facility] MOLECULAR [id number] 20:25:03 Test Item Value Reference Range Interpretation Comments POCT Molecular FluA (test code = Negative Negative 69093-7) POCT Molecular FluB (test code = Negative Negative 97571-4) Lab Interpretation (test code = Normal 73528-7) [facility] MOLECULAR [id number] 20:18:15 Test Item Value Reference Range Interpretation Comments POCT Molecular Strep (test code = Negative Negative 30574-4) Lab Interpretation (test code = Normal 22846-4) [facility] [id number] 20:10:00 Test Item Value Reference Range Interpretation Comments POCT PREG (test code = 1605) negative On board controls acceptable with positive C Line (test code = 3574) POCT PREG LOT # (test code = 3575) [id number] POCT PREG TEST DATE (test 06-14-2021 code = 3576) Lab Interpretation (test code = Normal 85796-5) [facility]
[2022-04-20 21:31] LABS: Urine Blood Negative (Negative); Urine Glucose Negative (Negative); Urine Protein 1+ (Negative)
[2022-04-20 21:35] LABS: Absolute Lymphocytes (CBC) 2.2 K/uL (0.7-4.9); Hematocrit 38.5 % (36.0-45.0); Lymphocytes % 17.2 % (15.3-44.8); MPV 8.3 fL (7.6-11.3); RBC Red Blood Cell Count 4.93 M/uL (3.86-4.86)
--- NOTE | 2022-04-20 21:41 | ER ---
Nurse's Notes [facility] Name: Roberto Carlos Mcdermott Age: 22 yrs Sex: Female : 2000 Arrival Date: 04/20/2022 Time: 20:59 Bed IW5 Private MD: Diagnosis: Lower abdominal pain, unspecified;20 weeks gestation of Assessment: 04/20 21:53 Reassessment: pt not seen by this RN discharged by Jalyn Garcia CLINICAL PROJECT COORDINATOR. scar ED Course: 20:59 Patient arrived in ED. rg4 21:00 Jalyn Garcia FNP-C is PHCP. kb 21:00 Adama Orellana MD is Attending Physician. kb 21:34 Abo/rh Typing Sent. bc6 21:34 Basic Metabolic Panel Sent. bc6 21:34 CBC with Diff Sent. bc6 21:34 Quantitative Hcg Sent. bc6 21:34 Inserted saline lock: 20 gauge in left antecubital area, using aseptic technique. bc6 Administered Medications: No medications were administered Outcome: 21:41 Discharge ordered by . kb 21:53 Patient left the ED. bb Signatures: Jalyn Garcia FNP-C FNP-Ckb Ballard, Brenda, RN RN Sujey Aguilar rg4 Eufemia Stone bc6
--- NOTE | 2022-04-20 21:41 | EDPHYS ---
Physician Documentation [facility] Name: Roberto Carlos Mcdermott Age: 22 yrs Sex: Female : 2000 Arrival Date: 04/20/2022 Time: 20:59 Bed IW5 Private MD: ED Physician Adama Orellana MDM: 04/20 21:09 Patient medically screened. kb 21:34 Data reviewed: vital signs, nurses notes. kb 04/20 21:10 Order name: Abo/rh Typing kb 04/20 21:10 Order name: Basic Metabolic Panel kb 04/20 21:10 Order name: CBC with Diff kb 04/20 21:10 Order name: Quantitative Hcg kb 04/20 21:10 Order name: IV Saline Lock; Complete Time: 21:34 kb 04/20 21:10 Order name: Labs collected and sent; Complete Time: 21:34 kb 04/20 21:10 Order name: NPO; Complete Time: 21:34 kb 04/20 21:10 Order name: Urine Dipstick-Ancillary (obtain specimen); Complete Time: 21:34 kb 04/20 21:10 Order name: US OB Complete kb 04/20 21:31 Order name: Urine Dipstick-Ancillary; Complete Time: 21:34 EDMS 04/20 21:37 Order name: CBC with Automated Diff; Complete Time: 21:41 EDMS 04/20 21:52 Order name: ABO/RH typing EDMS Administered Medications: No medications were administered Disposition Summary: 04/20/22 21:41 Discharge Ordered Location: Home kb Condition: Stable kb Diagnosis - Lower abdominal pain, unspecified kb - 20 weeks gestation of kb Followup: kb - With: Emergency Department - When: As needed - Reason: Worsening of condition Followup: kb - With: Private Physician - When: 2 - 3 days - Reason: Recheck today's complaints, Continuance of care, Re-evaluation by your physician Discharge Instructions: - Discharge Summary Sheet kb - Pelvic Pain, Female, Jvvx-kf-Uenf kb - Abdominal Pain, Adult, Vole-ui-Mhnz kb - Abdominal Pain During , Twmy-ks-Ssta kb Forms: - Medication Reconciliation Form kb - Thank You Letter kb - Antibiotic Education kb - Prescription Opioid Use kb Signatures: Dispatcher [employer] EDMS Jose, Jalyn, BAR FINISH OPERATOR-C BAR FINISH OPERATOR-Ckb
[2022-04-20 22:08] LABS: Potassium 3.4 mmol/L (3.5-5.1)
== END 2022-04-20 21:53 | disposition home or self-care (01) ==
LOC: ER 20:57
DX: O26.892 Other specified pregnancy related conditions, second trimester (principal); Z3A.20 20 weeks gestation of pregnancy
CPT/HCPCS: 36415; 80048; 81003; 84702; 85025; 86900; 86901; 99283

== ENCOUNTER 2022-09-10 00:15 | Emergency (ER) | payer OTHER ==
--- OUTSIDE RECORDS SUMMARY | 2022-09-10 00:40 | XMS REPORT | Continuity of Care Document ---
:2000 Author Organization [facility] t Address [address] [facility] [address] [place] [address] Care Team Providers Name Role Phone ALESHIA DODGE Primary Care Physician Unavailable Naina BLOKC, Josette Denis Attending Clinician [phone] Anders Dash MD Attending Clinician Frederic Baugh MD Attending Clinician EVAN ANTONY Attending Clinician Unavailable YUE XIONG Attending Clinician Unavailable Yue Xiong CNM Attending Clinician 1, [facility] Attending Clinician Unavailable Shruthi Eaton Attending Clinician Provider, [facility] Attending Clinician Unavailable Julian Mercedes Attending Clinician [phone] JULIAN ROLAND Attending Clinician Unavailable Jaswinder Lora DO Attending Clinician JASWINDER LORA Attending Clinician Unavailable ANA BOWMAN Attending Clinician Unavailable Ana Bowman MD Attending Clinician Esther Montes MD Attending Clinician ESTHER MONTES Attending Clinician Unavailable ESTHER MONTES Attending Clinician Unavailable Benjamin GOLDSTEIN, Aleshia Spangler Attending Clinician ALESHIA DODGE Attending Clinician Unavailable MONIQUE BARROSO Attending Clinician Unavailable Monique Barroso MD Attending Clinician Kimberly Marquez RN Attending Clinician Unavailable 2, [facility] Room Attending Clinician Unavailable Iglesia Bridges MD Attending Clinician IGLESIA BRIDGES Attending Clinician Unavailable Ultrasound, [facility] Attending Clinician Unavailable QING MORLEY Attending Clinician Unavailable Anna Cooley Attending Clinician GINA RICARDO Attending Clinician Unavailable Gina Ricardo DO Attending Clinician Doctor Unassigned, [place] Attending Clinician Unavailable Qing Morley MD Attending Clinician Harleen Miles MD Attending Clinician HARLEEN MILES Attending Clinician Unavailable Ultrasound, [facility] Attending Clinician Unavailable PARVEZ CHUNG Attending Clinician Unavailable Parvez Chung PA-C Attending Clinician 2, [facility] Attending Clinician Unavailable Rach Oropeza RN Attending Clinician Unavailable ANNA MCCOY Attending Clinician Unavailable Hamida Chavez Attending Clinician Shaniqua Kwong RN Attending Clinician Unavailable HAMIDA NIETO Attending Clinician Unavailable Samia Tejada NP Attending Clinician QING MORLEY Admitting Clinician Unavailable Josette Lal MD Admitting Clinician [phone] JOSETTE LAL Admitting Clinician Unavailable MONIQUE BARROSO Admitting Clinician Unavailable Monique Barroso MD Admitting Clinician HARLEEN MILES Admitting Clinician Unavailable Qing Morley MD Admitting Clinician Payers Payer Name Policy Type Policy Number Effective Date Expiration Date Bari SIMON [id number] 2022 00:00:00 [facility] [id number] 2015 00:00:00 Problems Condition Condition Condition Status Onset Resolution Last Treating Co mments Source Name Details Category Date Date Treatment Clinician Date Anemia, Anemia, Disease Active Univers 7-15 it y of 00:00: [place] [facility] Maternal Maternal Disease Active Unive rs varicella, varicella, 7-15 [place] non-immune [place] [facility] Disease Active Univers (spontaneo (spontaneo 7-14 it [place] of [place] vaginal [place] delivery[place] delivery[place] 00 [facility] Single Single Disease Active Univers live live 7-14 it y of 00:00: [place] [facility] Chorioamni Chorioamni Disease Active U nivers onitis onitis 7-14 ity of 00:00: [place] [facility] Obstetrica Obstetrica Disease Active U nivers l l 7-14 ity of laceration [place] [facility] Forceps Forceps Disease Active Univers delivery delivery 7-14 ity of 00:00: [place] [facility] 39 weeks 39 weeks Disease Active Unive rs gestation gestation 7-12 ity of of of 00:00: [place] 00 [facility] Obesity Obesity Disease Active Univers (BMI (BMI 7-12 ity of 30-39.9) 30-39.9) 00:00: [place] [facility] Obesity Obesity Disease Active Univers affecting affecting 7-03 ity of 00:00: [place] 00 [facility] Hematuria, Hematuria, Disease Active U nivers unspecifie unspecifie 6-26 it y of d type d type 00:00: [place] [facility] Susceptibl Susceptibl Disease Active U nivers e to e to 6-26 ity of varicella varicella 00:00: [place] (non-immun (non-immun 00 Me dical e), e), Branch currently currently Heartburn Heartburn Disease Active Uni vers during during 5-26 [place] third in third 00 Medica l trimester trimester Bran ch Low back Low back Disease Active Unive rs pain pain 5-24 ity of during during 00:00: [place] [facility] in third in third Branch trimester trimester COVID-19 COVID-19 Disease Active Overview: Un elizabeth affecting affecting 4-30 Formattin i ty of 00:00: [place] of this [place] in third in third 00 note Medica l trimester trimester might be Br anch different from the original. + home test 3 Overweight Overweight Disease Active U nivvic (BMI (BMI 4-30 ity of 25.0-29.9) 25.0-29.9) [place] [facility] Vaginal Vaginal Disease Active Univers bleeding bleeding 4-15 ity of in in 00:00: [place] , , 00 Me dical second second Branch trimester trimester 26 weeks 26 weeks Disease Active Unive rs gestation gestation 4-15 ity of of of 00:00: [place] 00 [facility] Branch Umbilical Umbilical Disease Active Uni vers vein vein 4-05 ity of abnormalit abnormalit 00:[place] y y 00 Medical affecting affecting Bran ch , , single or single or unspecifie unspecifie d fetus d fetus BV BV Disease Active Univers (bacterial (bacterial 1-12 it y of vaginosis) vaginosis) [place] [facility] Supervisio Supervisio Disease Active U nivers n of n of 1-10 ity of high-risk high-risk 00:[place] [facility] History of History of Disease Active U nivers miscarriag miscarriag 1-10 it y of e e 00:00: [place] [facility] Vaginal Vaginal Disease Active 2016-02 Univers discharge discharge 0-06 ity of 00:00: [place] [facility] Depo-Prove Depo-Prove Disease Active U nivers ra ra 8-18 ity of contracept contracept 00:[place] giovanny status giovanny status 00 Me dical Branch Allergies, Adverse Reactions, Alerts Allergy Allergy Status Severity Reaction(s) Onset Inactive Treating Comm ents Source Name Type Date Date Clinician NO KNOWN Drug Active Univers ALLERGIE Class ity of S [place] [facility] Social History Social Habit Start Date Stop Date Quantity Comments Source ASSERTION 2021-12-10 [facility] 00:00:00 [place] [facility] Gender identity [facility], [place] [facility] [place] Sexual orientation Univer sity [facility] [place] Alcohol intake 2022-08-29 2022-08-29 0 /d [facility] 00:00:00 00:00:00 [facility] Exposure to 2022-07-12 2022-07-22 Not sure [facility] SARS-CoV-2 (event) 00:00:00 20:23:00 [facility] History of Social 2022-01-17 2022-01-17 Univers ity of function 00:00:00 00:00:00 [facility] Tobacco use and 2022-01-17 2022-01-17 Smokeless Universit y of exposure 00:00:00 00:00:00 tobacco non-user [facility] Sex Assigned At [birth year] Universit y of 00:00:00 00:00:00 [place] [facility] Smoking Status Start Date Stop Date Source Never smoked tobacco [facility] Medications Ordered Filled Start Stop Current Ordering Indication Dosage Frequency Signature Comments Components Source Medication Medication Date Date Medication? Clinician (SIG) Name Name gentamicin 2022- No 5mg/kg 340 mg Un elizbaeth 340 mg in 08-29 (rounded ity o f NaCl 0.9% 02:00: 03:23 from 338 [place] (NS) 250 mL 00 :00 mg = 5 Medica l IV infusion mg/kg Branch ?67.6 kg Adjusted weight), IV Infusion, Q24H ABX, 1 dose, First dose (after last modificati on) on Wed08/28/22 at 2100, Administer over 60 Minutes, 250 mL
Kayleigh cation for aminoglyco side: Documented /suspected gram-negat giovanny infection< br>Patient has/is: None of the above
R fouzia for Anti-Infec tive: Documented Infection< br>Documen jaden Infection Site: Pelvic
Duration of Therapy: 7 days Yes [id number] 1{tbl} Take 1 Univers vitamin 7-15 tablet by ity of w/FA tablet 00:00: [place] the Medical morning. Branch docusate 0 Yes [id number] 200mg Take 2 U nivers 100 mg 7-15 capsules ity of capsule 00:00: by mouth [place] 00 once daily Medical as needed Branch for Constipati on. ferrous Yes [id number] 325mg Take 1 Un elizabeth sulfate 325 7-15 tablet by ity of mg (65 mg 00:00: [place] iron[place] 00 the Medical tablet morning Branch and 1 tablet in the evening. ibuprofen Yes [id number] 600mg Take 1 Univers 600 mg 7-15 tablet by ity of tablet 00:00: mouth [place] 00 every 6 Medical (six) Branch hours as needed (Pain). Take with food or milk. ampicillin 2022- No 2g 2,000 mg Un elizabeth (POLYCILLIN 08-2815 (2 g), IV it y of -N) 2,000 06:30: 01:40 [place]gyback, [place] mg in NaCl 00 :00 Q6H ABX, 4 Med ical 0.9% (NS) doses, Branch 100 mL First dose MINI-BAG (after last modificati on) on Wed08/28/22 at 0130, Last dose on Wed08/28/22 at 1930, Administer over 30 Minutes, 100 mL
Reas on for Anti-Infec tive: Empiric Therapy for Suspected Infection< br>Empiric Therapy Site: Pelvic
Duration of therapy: 72 hours ibuprofen 0 Yes 600mg 600 mg, Univ ers (IBU) 7-14 Oral, ity of tablet 600 05:54: Q6HPRN, [place] mg 04 Starting Medical on Wed Branch 08/28/22 at 0054, Until Discontinu ed, Routine, Pain (scale 4-6) acetaminoph Yes 650mg 650 mg, Un elizabeth en 7-14 Oral, ity of (TYLENOL) 05:54: Q6HPRN, [place] tablet 650 04 Starting Medic al mg on Wed Branch 08/28/22 at 0054, Until Discontinu ed, Routine, Pain (scale 1-3) diphenhydrA 2022-0 Yes 25mg 25 mg, Univ ers MINE 08-28 Oral, ity of (BENADRYL) 05:54: Q6HPRN, [place] tablet 25 04 Starting Medica l mg on Wed Branch 08/28/22 at 0054, Until Discontinu ed, Routine, Sleep, Itching ondansetron 0 Yes 4mg 4 mg, Slow Univers (ZOFRAN 08-28 IV Push, ity of (PF)) 05:54: Q8HPRN, [place] injection 4 04 Starting Medi sheela mg on Wed Branch 08/28/22 at 0054, Until Discontinu ed, Routine, Nausea and Vomiting (N/V) simethicone 2022-0 Yes 160mg 160 mg, Un elizabeth (GAS RELIEF 08-28 Oral, ity of (SIMETHICON 05:54: PC+HSPRN, [place] E)) 04 Starting Medical chewable on Wed tablet 160 08/28/22 at mg 0054, Until Discontinu ed, Routine, Gas docusate 0 Yes 200mg 200 mg, Unive rs (COLACE) 08-28 Oral, ity of capsule 200 05:54: QDAILYPRN, [place] mg 04 Starting Medical on Wed Branch 08/28/22 at 0054, Until Discontinu ed, Routine, Constipati on magnesium 0 Yes 30mL 30 mL, Univer s hydroxide 08-28 Oral, ity of (MILK OF 05:54: QDAILYPRN, [place] MAGNESIA) 04 Starting Medica l 400 mg/5 mL on Wed suspension 08/28/22 at 30 mL 4, Until Discontinu ed, Routine, Constipati on benzocaine- 0 Yes Topical, Un elizabeth menthol 08-28 PRN, ity of (DERMOPLAST 05:54: Starting [place] ) 20-0.5 % 04 on Wed Medical topical 08/28/22 at Branch spray 0054, Until Discontinu ed, Routine, Perineum discomfort lactated 2022-0 2022- No 1000mL at 125 Univ ers ringers IV 08-28 07-14 mL/hr, ity of infusion 05:00: 05:53 1,000 mL, [place] 1,000 mL 00 :08 IV Medical Infusion, Branch ONCE, 1 dose, On Wed08/28/22 at 0000, AFUA ibuprofen 2022-0 Yes 600mg 600 mg, Univ ers (IBU) 08-28 Oral, ity of tablet 600 04:55: Q6HPRN, [place] mg 00 Starting Medical on [place] Branch 08/27/22 at 2355, Until Discontinu ed, Routine, Pain (scale 1-3) oxytocin 2022-0 Yes 600mL/h 600 mL/hr, Univers (PITOCIN) 08-28 IV ity of 30 units in 04:54: Infusion, [place] NS 500 mL 54 PRN, For Medica l IV infusion post Branch delivery uterine atony., Starting on [place] 08/27/22 at 2354<br&gt ;Start at 600 mL/hr for 1 hr then 150 mL/hr for 1 hr.
oxytocin 2022-0 Yes 300mL/h 300 mL/hr, Univers (PITOCIN) 08-28 IV ity of 30 units in 04:54: Infusion, [place] NS 500 mL 54 SEE-INSTRU Medi sheela IV infusion CTIONS, Branc h Starting on [place] 08/27/[address] at 300 mL/hr for 1 hr then 150 mL/hr for 1 hr. For post delivery uterotonic .
gentamicin 2022- No 5mg/kg 340 mg Un elizabeth 340 mg in 08-28 (rounded ity o f NaCl 0.9% 01:15: 02:47 from 338 [place] (NS) 250 mL 00 :25 mg = 5 Medica l IV infusion mg/kg Branch ?67.6 kg Adjusted weight), IV Infusion, Q24H ABX, 1 dose, First dose (after last modificati on) on [place] 08/27/22 at 2015, Administer over 60 Minutes, 250 mL
Reas on for Anti-Infec tive: Empiric Therapy for Suspected Infection< br>Empiric Therapy Site: Pelvic
Duration of therapy: 72 hours acetaminoph 2022-0 2022- No 1000mg 1,000 mg, Univers en 08-28 Oral, ONCE ity of (TYLENOL) 01:15: 00:34 NOW, 1 [place] tablet 00 :00 dose, On Medical 1,000 mg [place] Branch 08/27/22 at 2015, Routine ampicillin 2022- No 2g 2,000 mg Un elizabeth (POLYCILLIN 08-28 (2 g), IV it y of -N) 2,000 01:15: 06:02 Piggyback, [place] mg in NaCl 00 :33 Q6H ABX, Medic al 0.9% (NS) First dose Bran ch 100 mL on [place] MINI-BAG 08/27/22 at 2014, Until Discontinu ed, Administer over 30 Minutes, 100 mL
Reas on for Anti-Infec tive: Empiric Therapy for Suspected Infection< br>Empiric Therapy Site: Pelvic
Duration of therapy: 72 hours ondansetron 2022- No 4mg 4 mg, Slow Univers (ZOFRAN 08-27 IV Push, ity of (PF)) 14:15: 13:15 ONCE, On [place] injection 4 00 :00 [place] Medical mg 08/27/22 at Branch 0915, For 1 dose
Do ses of ondansetro n 16 mg and above need to be administer ed via IV piggyback. For Dose >=24mg ECG monitoring is advisable.
ropivacaine 2022- No Epidural, Univers 0.2 % 08-27 CONTINUOUS ity of (NAROPIN 12:19: 06:11 PRN, [place] (PF)) 00 :37 Starting Medical epidural on [place] Branch infusion 08/27/22 at 0719, Until Wed08/28/22 at 0111, Routine, Intra-op ropivacaine 2022- No Epidural, Univers 0.2 % 08-27 CONTINUOUS ity of (NAROPIN 12:19: 06:11 PRN, [place] (PF)) 00 :37 Starting Medical epidural on [place] Branch infusion 08/27/22 at 0719, Until Wed08/28/22 at 0111, Routine, Intra-op lidocaine-e 2022- No Intraderma Univers pinephrine 08-27 l, ONCE ity o f (XYLOCAINE 12:17: 06:11 INTRA [place] W/EPINEPHRI 00 :37 PROCEDURE, In dical NE) 1.5 Starting Branch %-1:200,000 on [place] injection 08/27/22 at 0717, Until Wed08/28/22 at 0111, Routine, Intra-op lidocaine-e 2022- No Intraderma Univers pinephrine 08-27 l, ONCE ity o f (XYLOCAINE 12:17: 06:11 INTRA [place] W/EPINEPHRI 00 :37 PROCEDURE, Me dical NE) 1.5 Starting Branch %-1:200,000 on [place] injection 08/27/22 at 0717, Until Wed08/28/22 at 0111, Routine, Intra-op oxytocin 0 Yes 2mU/min at 2-40 Uni vers (PITOCIN) 7-13 mL/hr, IV ity o f 30 units in 10:29: Infusion, [place] NS 500 mL 56 TITRATE, Medica l IV infusion Starting Bran ch on [place] 08/27/22 at 0529, Until Discontinu ed, AFUA lactated 2022- No 500mL at 999 Unive rs ringers IV 08-27 mL/hr, 500 it y of infusion 10:15: 12:24 mL, IV [place] 500 mL 00 :00 Infusion, Medical ONCE, 1 Branch dose, On [place] 08/27/22 at 0515, Routine lactated 0 Yes 500mL at 999 Univer s ringers IV 7-13 mL/hr, 500 ity of infusion 09:29: mL, IV [place] 500 mL 47 Infusion, Medical PRN - SEE Branch INSTRUCTIO NS, 1 dose, Starting on [place] 08/27/22 at 0429, Until Discontinu ed, Routine sodium 2022- No 30mL 30 mL, Univers citrate-cit 08-27 Oral, ity of bravo acid 09:29: 12:24 PRE-PROCED [place] (BICITRA) 47 :00 URE ONCE, Medic al 500-334 1 dose, Branch mg/5 mL Starting solution 30 on [place] mL 08/27/22 at 0429, Until [place] 08/27/22 at 0724, Routine, Surgery/Pr ocedure proMETHazin 2022- No 12.5mg 12.5 mg, Univers e 08-27 IV ity of (PHENERGAN) 05:30: 05:37 Piggyback, [place] 12.5 mg in 00 :00 at 200 Medical NS 50 mL IV mL/hr Branch piggyback Administer (CNR) over 15 Minutes, ONCE, 1 dose, On [facility] 08/27/22 at 0030, Routine morpHINE (4 2022-0 3- No 4mg 4 mg, Slow Univers mg/mL) 08-27 07-13 IV Push, ity of injection 4 05:15: 05:22 ONCE, 1 [place] mg 00 :00 dose, On [facility] 08/27/22 at 0015, Routine sodium 2022-0 Yes 30mL 30 mL, Univers citrate-cit 712 Oral, ity of bravo acid 20:35: PRE-PROCED [place] (BICITRA) 38 URE ONCE, Medic al 500-334 1 dose, Branch mg/5 mL Starting solution 30 on 08/26/22 at 1535, Until Discontinu ed, Routine, Surgery/Pr ocedure lactated 2022-0 Yes 500mL at 999 Univer s ringers IV 7-12 mL/hr, 500 ity of infusion 20:35: mL, IV [place] 500 mL 38 Infusion, Medical PRN - SEE Branch INSTRUCTIO NS, 1 dose, Starting on Wed08/26/22 at 1535, Until Discontinu ed, Routine morpHINE (4 2022-0 Yes 4mg 4 mg, Slow Univers mg/mL) 08-26 IV Push, ity of injection 4 20:31: Q4HPRN, [place] mg 20 Starting Medical on Wed [place] 08/26/22 at 1531, Until Discontinu ed, Routine, Pain (scale 4-6) sodium 2022-0 Yes 30mL 30 mL, Univers citrate-cit 7-12 Oral, ity of bravo acid 20:15: PRE-PROCED [place] (BICITRA) 10 URE ONCE, Medic al 500-334 1 dose, Branch mg/5 mL Starting solution 30 on 08/26/22 at 1515, Until Discontinu ed, Routine, Surgery/Pr ocedure lidocaine 3-0 Yes 50mL 50 mL, Univer s 1% - Infiltrati ity of (XYLOCAINE) 20:15: on, PRN - [place] 10 mg/mL (1 10 SEE Medical %) INSTRUCTIO Branch injection NS, 50 mL Starting on Wed08/26/22 at 1515, Until Discontinu ed, Routine, Local anesthesia , For laceration repair only as a local anesthetic as indicated. lidocaine 2022-0 Yes .3mL 0.3 mL, Unive rs 1% (PF) 7-12 Infiltrati ity of (XYLOCAINE) 20:15: on, PRN - [place] injection 10 SEE Medical 0.3 mL INSTRUCTIO Branch NS, Starting on Wed08/26/22 at 1515, Until Discontinu ed, Routine, Local anesthesia , For IV line placement only as a local anesthetic . lactated 2022-0 Yes 500mL at 999 Univer s ringers IV 7-12 mL/hr, 500 ity of infusion 20:15: mL, IV [place] 500 mL 10 Infusion, Medical PRN - SEE Branch INSTRUCTIO NS, Starting on Wed08/26/22 at 1515, Until Discontinu ed, Routine D5W-LR IV 2022-0 Yes 1000mL at 1-125 Un elizabeth infusion 7-12 mL/hr, IV ity of 1,000 mL 20:15: Infusion, [place] 10 TITRATE, Medical Starting Branch on Wed08/26/22 at 1515, Until Discontinu ed, Routine famotidine 2022-0 Yes [id number] 20mg Take 1 U nivers (PEPCID) 20 5-26 tablet by ity of mg tablet 00:00: mouth in [place] the Medical morning Branch and 1 tablet in the evening. famotidine 3-0 Yes [id number] 20mg Take 1 U nivers (PEPCID) 20 5-26 tablet by ity of mg tablet 00:00: mouth [place] 00 the Medical morning Branch and 1 tablet in the evening. famotidine 2023-0 Yes [id number] 20mg Take 1 U nivers (PEPCID) 20 5-26 tablet by ity of mg tablet 00:00: [place] 00 the Medical morning Branch and 1 tablet in the evening. famotidine 2023-0 Yes [id number] 20mg Take 1 U nivers (PEPCID) 20 5-26 tablet by ity of mg tablet 00:00: [place] 00 the Medical morning Branch and 1 tablet in the evening. famotidine 2023-0 Yes [id number] 20mg Take 1 U nivers (PEPCID) 20 5-26 tablet by ity of mg tablet 00:00: [place] 00 the Medical morning Branch and 1 tablet in the evening. famotidine 2022-0 Yes [id number] 20mg Take 1 U nivers (PEPCID) 20 5-26 tablet by ity of mg tablet 00:00: [place] 00 the Medical morning Branch and 1 tablet in the evening. famotidine 2022-0 Yes [id number] 20mg Take 1 U nivers (PEPCID) 20 5-26 tablet by ity of mg tablet 00:00: [place] 00 the Medical morning Branch and 1 tablet in the evening. famotidine 2022-0 Yes [id number] 20mg Take 1 U nivers (PEPCID) 20 5-26 tablet by ity of mg tablet 00:00: [place] 00 the Medical morning Branch and 1 tablet in the evening. famotidine 2022-0 Yes [id number] 20mg Take 1 U nivers (PEPCID) 20 5-26 tablet by ity of mg tablet 00:00: [place] 00 the Medical morning Branch and 1 tablet in the evening. famotidine 2022-0 Yes [id number] 20mg Take 1 U nivers (PEPCID) 20 5-26 tablet by ity of mg tablet 00:00: [place] 00 the Medical morning Branch and 1 tablet in the evening. famotidine 2022-0 Yes [id number] 20mg Take 1 U nivers (PEPCID) 20 5-26 tablet by ity of mg tablet 00:00: [place] 00 the Medical morning Branch and 1 tablet in the evening. famotidine 2022-0 Yes [id number] 20mg Take 1 U nivers (PEPCID) 20 5-26 tablet by ity of mg tablet 00:00: [place] 00 the Medical morning Branch and 1 tablet in the evening. famotidine 2022-0 Yes [id number] 20mg Take 1 U nivers (PEPCID) 20 5-26 tablet by ity of mg tablet 00:00: [place] 00 the Medical morning Branch and 1 tablet in the evening. famotidine 2022-0 Yes [id number] 20mg Take 1 U nivers (PEPCID) 20 5-26 tablet by ity of mg tablet 00:00: [place] 00 the Medical morning Branch and 1 tablet in the evening. famotidine 2022-0 Yes [id number] 20mg Take 1 U nivers (PEPCID) 20 5-26 tablet by ity of mg tablet 00:00: [place] 00 the Medical morning Branch and 1 tablet in the evening. famotidine 2022-0 Yes [id number] 20mg Take 1 U nivers (PEPCID) 20 5-26 tablet by ity of mg tablet 00:00: [place] 00 the Medical morning Branch and 1 tablet in the evening. famotidine 2022-0 Yes [id number] 20mg Take 1 U nivers (PEPCID) 20 5-26 tablet by ity of mg tablet 00:00: [place] 00 the Medical morning Branch and 1 tablet in the evening. famotidine 2022-0 Yes [id number] 20mg Take 1 U nivers (PEPCID) 20 5-26 tablet by ity of mg tablet 00:00: [place] 00 the Medical morning Branch and 1 tablet in the evening. famotidine 2022-0 Yes [id number] 20mg Take 1 U nivers (PEPCID) 20 5-26 tablet by ity of mg tablet 00:00: [place] 00 the Medical morning Branch and 1 tablet in the evening. famotidine 2022-0 Yes [id number] 20mg Take 1 U nivers (PEPCID) 20 5-26 tablet by ity of mg tablet 00:00: [place] 00 the Medical morning Branch and 1 tablet in the evening. famotidine 2022-0 Yes [id number] 20mg Take 1 U nivers (PEPCID) 20 5-26 tablet by ity of mg tablet 00:00: [place] 00 the Medical morning Branch and 1 tablet in the evening. famotidine 2022-0 Yes [id number] 20mg Take 1 U nivers (PEPCID) 20 5-26 tablet by ity of mg tablet 00:00: [place] 00 the Medical morning Branch and 1 tablet in the evening. famotidine 3-0 Yes [id number] 20mg Take 1 U nivers (PEPCID) 20 5-26 tablet by ity of mg tablet 00:00: [place] 00 the Medical morning Branch and 1 tablet in the evening. famotidine 2022-0 Yes [id number] 20mg Take 1 U nivers (PEPCID) 20 5-26 tablet by ity of mg tablet 00:00: [place] 00 the Medical morning Branch and 1 tablet in the evening. famotidine 2022-0 Yes [id number] 20mg Take 1 U nivers (PEPCID) 20 5-26 tablet by ity of mg tablet 00:00: [place] 00 the Medical morning Branch and 1 tablet in the evening. famotidine 2022-0 Yes [id number] 20mg Take 1 U nivers (PEPCID) 20 5-26 tablet by ity of mg tablet 00:00: [place] 00 the Medical morning Branch and 1 tablet in the evening. famotidine 2022-0 Yes [id number] 20mg Take 1 U nivers (PEPCID) 20 5-26 tablet by ity of mg tablet 00:00: [place] 00 the Medical morning Branch and 1 tablet in the evening. famotidine 2022-0 Yes [id number] 20mg Take 1 U nivers (PEPCID) 20 5-26 tablet by ity of mg tablet 00:00: [place] 00 the Medical morning Branch and 1 tablet in the evening. famotidine 2022-0 2023- No [id number] 20mg Take 1 Univers (PEPCID) 20 5-26 07-15 tablet by it y of mg tablet 00:00: 00:00 mouth in [place] 00 :00 the Medical morning Branch and 1 tablet in the evening. PROMETHAZIN 2022-0 Yes [id number] TAKE 1 Univers E 25 mg 4-24 TABLET BY ity of tablet 00:00: MOUTH [place] 00 EVERY 6 Medical HOURS Branch NEEDED FOR NAUSEA AND VOMITING . PROMETHAZIN 2022-0 Yes [id number] TAKE 1 Univers E 25 mg 4-24 TABLET BY ity of tablet 00:00: MOUTH [place] 00 EVERY 6 Medical HOURS Branch NEEDED FOR NAUSEA AND VOMITING . PROMETHAZIN 2022-0 Yes [id number] TAKE 1 Univers E 25 mg 4-24 TABLET BY ity of tablet 00:00: MOUTH [place] 00 EVERY 6 Medical HOURS Branch NEEDED FOR NAUSEA AND VOMITING . PROMETHAZIN 2022-0 Yes [id number] TAKE 1 Univers E 25 mg 4-24 TABLET BY ity of tablet 00:00: MOUTH [place] 00 EVERY 6 Medical HOURS Branch NEEDED FOR NAUSEA AND VOMITING . PROMETHAZIN 2022-0 Yes [id number] TAKE 1 [facility] 25 mg 4-24 TABLET BY [facility] of tablet 00:00: MOUTH [place] 00 EVERY 6 Medical HOURS Branch NEEDED FOR NAUSEA AND VOMITING . PROMETHAZIN 2022-0 Yes [id number] TAKE 1 [facility] 25 mg 4-24 TABLET BY it[facility] of tablet 00:00: MOUTH [place] 00 EVERY 6 Medical HOURS Branch NEEDED FOR NAUSEA AND VOMITING . PROMETHAZIN 2022-0 Yes [id number] TAKE 1 [facility] 25 mg 4-24 TABLET BY it[facility] of tablet 00:00: MOUTH [place] 00 EVERY 6 Medical HOURS Branch NEEDED FOR NAUSEA AND VOMITING . PROMETHAZIN 2022-0 Yes [id number] TAKE 1 [facility] 25 mg 4-24 TABLET BY ity of tablet 00:00: MOUTH [place] 00 EVERY 6 Medical HOURS Branch NEEDED FOR NAUSEA AND VOMITING . PROMETHAZIN 0 2022- No [id number] TAKE 1 [facility] 25 mg 4-24 05-26 TABLET BY ity of tablet 00:00: 00:00 MOUTH [place] 00 :00 EVERY 6 Medical HOURS Branch NEEDED FOR NAUSEA AND VOMITING . Nitrofurant 2022- No 100mg 100 mg, U nivers oin&Nit. 04-21 03-07 Oral, ity of Macrocryst 06:00: 05:53 ONCE, 1 [place] [facility] (MACROBID) 00 :00 dose, On Medic al 100 mg e 04/21/22 Branch capsule 100 at 0000, mg Routine
Reason for Anti-Infec tive: Documented Infection< br>Documen jaden Infection Site: Urine
D uration of Therapy: Other (see Comments) acetaminoph 2022-0 Yes 650mg 650 mg, Un [place] en 04-21 Oral, ity of (TYLENOL) 05:47: Q6HPRN, [place] tablet 650 03 Starting Medic al mg on Mon Branch 04/20/22 at 2347, Until Discontinu ed, Routine, Pain (scale 4-6) Nitrofurant 2022-0 Yes [id number] 100mg Take 1 [facility] oin&Nit. 3-07 capsule by ity o f Macrocryst 00:00: mouth in [place] 100 mg 00 the Medical capsule morning Branch and 1 capsule in the evening. Nitrofurant 2022-0 Yes [id number] 100mg Take 1 [facility] oin&Nit. 3-07 capsule by ity o f Macrocryst 00:00: mouth in [place] 100 mg 00 the Medical capsule morning Branch and 1 capsule in the evening. Nitrofurant 3-0 Yes [id number] 100mg Take 1 [facility] oin&Nit. 3-07 capsule by ity o f Macrocryst 00:00: mouth in [place] 100 mg 00 the Medical capsule morning Branch and 1 capsule in the evening. Nitrofurant 2022-0 3- No [id number] 100mg Take 1 [facility] oin&Nit. 3-07 04-05 capsule by [facility] of Macrocryst 00:00: 00:00 mouth in [place] 100 mg 00 :00 the Medical capsule morning Branch and 1 capsule in the evening. metroNIDAZO 2022-0 Yes [id number] 500mg Take 1 [facility] LE 500 mg 1-12 tablet by ity o f tablet 00:00: mouth in [place] 00 the Medical morning Branch and 1 tablet in the evening. metroNIDAZO 2022-0 Yes [id number] 500mg Take 1 [facility] 500 mg 1-12 tablet by ity o f tablet 00:00: mouth in [place] 00 the Medical morning Branch and 1 tablet in the evening. metroNIDAZO 2022-0 Yes [id number] 500mg Take 1 [facility] 500 mg 1-12 tablet by ity o f tablet 00:00: mouth in [place] 00 the Medical morning Branch and 1 tablet in the evening. metroNIDAZO 2022-0 3- No [id number] 500mg Take 1 [facility] 500 mg -12 - tablet by ity of tablet 00:00: 00:00 mouth in [place] 00 :00 the Medical morning Branch and 1 tablet in the evening. metroNIDAZO 3-0 2023- No [id number] 500mg Take 1 [facility] 500 mg 02-25 tablet by ity of tablet 00:00: 05:59 mouth in [place] 00 :00 the Medical morning Branch and 1 tablet in the evening. Do all this for 7 days. metroNIDAZO 3-0 2023- No [id number] 500mg Take 1 [facility] 500 mg 02-25 tablet by ity of tablet 00:00: 05:59 mouth in [place] 00 :00 the Medical morning Branch and 1 tablet in the evening. Do all this for 7 days. metroNIDAZO 2022- No [id number] 500mg Take 1 [facility] 500 mg 02-25 tablet by ity of tablet 00:00: 05:59 mouth in [place] 00 :00 the Medical morning Branch and 1 tablet in the evening. Do all this for 7 days. 2021-02 Yes [id number] Take 1 [facility] vers vit 2-03 combo pack ity of 33-iron-fol 00:00: daily [place] ic-dha 00 Medical (SELECT-OB Branch + DHA) 29 mg iron-1 mg -250 mg combo pack 2021-02 Yes [id number] Take 1 [facility] vers vit 2-03 combo pack ity of 33-iron-fol 00:00: daily [place] ic-dha 00 Medical (SELECT-OB Branch + DHA) 29 mg iron-1 mg -250 mg combo pack 2021-02 Yes [id number] Take 1 [facility] vers vit 2-03 combo pack ity of 33-iron-fol 00:00: daily [place] ic-dha 00 Medical (SELECT-OB Branch + DHA) 29 mg iron-1 mg -250 mg combo pack 2021-02 Yes [id number] Take 1 [facility] vers vit 2-03 combo pack ity of 33-iron-fol 00:00: daily [place] ic-dha 00 Medical (SELECT-OB Branch + DHA) 29 mg iron-1 mg -250 mg combo pack 2021-02 Yes [id number] Take 1 [facility] vers vit 2-03 combo pack ity of 33-iron-fol 00:00: daily [place] ic-dha 00 Medical (SELECT-OB Branch + DHA) 29 mg iron-1 mg -250 mg combo pack 2021-02 Yes [id number] Take 1 [facility] vers vit 2-03 combo pack ity of 33-iron-fol 00:00: daily [place] ic-dha 00 Medical (SELECT-OB Branch + DHA) 29 mg iron-1 mg -250 mg combo pack 2021-02 Yes [id number] Take 1 [facility] vers vit 2-03 combo pack ity of 33-iron-fol 00:00: daily [place] ic-dha 00 Medical (SELECT-OB Branch + DHA) 29 mg iron-1 mg -250 mg combo pack 2021-02 Yes [id number] Take 1 [facility] vers vit 2-03 combo pack ity of 33-iron-fol 00:00: daily [place] ic-dha 00 Medical (SELECT-OB Branch + DHA) 29 mg iron-1 mg -250 mg combo pack 2021-02 Yes [id number] Take 1 [facility] vers vit 2-03 combo pack ity of 33-iron-fol 00:00: daily [place] ic-dha 00 Medical (SELECT-OB Branch + DHA) 29 mg iron-1 mg -250 mg combo pack proMETHazin 2021-02 Yes [id number] 25mg Take 1 [facility] e 25 mg 2-03 tablet by ity of tablet 00:00: mouth [place] 00 every 6 Medical (six) Branch hours as needed for Nausea and Vomiting (N/V). 2021-02 Yes [id number] Take 1 [facility] vers vit 2-03 combo pack ity of 33-iron-fol 00:00: daily [place] ic-dha Medical (SELECT-OB Branch + DHA) 29 mg iron-1 mg -250 mg combo pack 2021-02 Yes [id number] Take 1 [facility] vers vit 2-03 combo pack ity of 33-iron-fol 00:00: daily [place] ic-dha 00 Medical (SELECT-OB Branch + DHA) 29 mg iron-1 mg -250 mg combo pack 2021-02 Yes [id number] Take 1 [facility] vers vit 2-03 combo pack ity of 33-iron-fol 00:00: daily [place] ic-dha 00 Medical (SELECT-OB Branch + DHA) 29 mg iron-1 mg -250 mg combo pack 2021-02 Yes [id number] Take 1 [facility] vers vit 2-03 combo pack ity of 33-iron-fol 00:00: daily [place] ic-dha 00 Medical (SELECT-OB Branch + DHA) 29 mg iron-1 mg -250 mg combo pack 2021-02 Yes [id number] Take 1 [facility] vers vit 2-03 combo pack ity of 33-iron-fol 00:00: daily [place] ic-dha 00 Medical (SELECT-OB Branch + DHA) 29 mg iron-1 mg -250 mg combo pack proMETHazin 2021-02 Yes [id number] 25mg Take 1 [facility] 25 mg 2-03 tablet by ity of tablet 00:00: mouth [place] 00 every 6 Medical (six) Branch hours as needed for Nausea and Vomiting (N/V). 2021-02 Yes [id number] Take 1 [facility] vers vit 2-03 combo pack ity of 33-iron-fol 00:00: daily [place] ic-dha 00 Medical (SELECT-OB Branch + DHA) 29 mg iron-1 mg -250 mg combo pack 2021-02 Yes [id number] Take 1 [facility] vers vit 2-03 combo pack ity of 33-iron-fol 00:00: daily [place] ic-dha 00 Medical (SELECT-OB Branch + DHA) 29 mg iron-1 mg -250 mg combo pack 2021-02 Yes [id number] Take 1 [facility] vers vit 2-03 combo pack ity of 33-iron-fol 00:00: daily [place] ic-dha 00 Medical (SELECT-OB Branch + DHA) 29 mg iron-1 mg -250 mg combo pack proMETHazin 2021-02 Yes [id number] 25mg Take 1 [facility] 25 mg 2-03 tablet by ity of tablet 00:00: mouth [place] 00 every 6 Medical (six) Branch hours as needed for Nausea and Vomiting (N/V). 2021-02 Yes [id number] Take 1 [facility] vers vit 2-03 combo pack ity of 33-iron-fol 00:00: daily [place] ic-dha 00 Medical (SELECT-OB Branch + DHA) 29 mg iron-1 mg -250 mg combo pack 2021-02 Yes [id number] Take 1 [facility] vers vit 2-03 combo pack ity of 33-iron-fol 00:00: daily [place] ic-dha 00 Medical (SELECT-OB Branch + DHA) 29 mg iron-1 mg -250 mg combo pack 2021-02 Yes [id number] Take 1 [facility] vers vit 2-03 combo pack ity of 33-iron-fol 00:00: daily [place] ic-dha 00 Medical (SELECT-OB Branch + DHA) 29 mg iron-1 mg -250 mg combo pack proMETHazin 2021-02 Yes [id number] 25mg Take 1 [facility] 25 mg 2-03 tablet by ity of tablet 00:00: mouth [place] 00 every 6 Medical (six) Branch hours as needed for Nausea and Vomiting (N/V). 2021-02 Yes [id number] Take 1 [facility] vers vit 2-03 combo pack ity of 33-iron-fol 00:00: daily [place] ic-dha 00 Medical (SELECT-OB Branch + DHA) 29 mg iron-1 mg -250 mg combo pack 2021-02 Yes [id number] Take 1 [facility] vers vit 2-03 combo pack ity of 33-iron-fol 00:00: daily [place] ic-dha 00 Medical (SELECT-OB Branch + DHA) 29 mg iron-1 mg -250 mg combo pack 2021-02 Yes [id number] Take 1 [facility] vers vit 2-03 combo pack ity of 33-iron-fol 00:00: daily [place] ic-dha 00 Medical (SELECT-OB Branch + DHA) 29 mg iron-1 mg -250 mg combo pack 2021-02 Yes [id number] Take 1 [facility] vers vit 2-03 combo pack ity of 33-iron-fol 00:00: daily [place] ic-dha 00 Medical (SELECT-OB Branch + DHA) 29 mg iron-1 mg -250 mg combo pack proMETHazin 2021-02 Yes [id number] 25mg Take 1 [facility] e 25 mg 2-03 tablet by ity of tablet 00:00: mouth [place] 00 every 6 Medical (six) Branch hours as needed for Nausea and Vomiting (N/V). 2021-02 Yes [id number] Take 1 [facility] vers vit 2-03 combo pack ity of 33-iron-fol 00:00: daily [place] ic-dha 00 Medical (SELECT-OB Branch + DHA) 29 mg iron-1 mg -250 mg combo pack 2021-02 Yes [id number] Take 1 [facility] vers vit 2-03 combo pack ity of 33-iron-fol 00:00: daily [place] ic-dha 00 Medical (SELECT-OB Branch + DHA) 29 mg iron-1 mg -250 mg combo pack proMETHazin 2021-02 Yes [id number] 25mg Take 1 [facility] 25 mg 2-03 tablet by ity of tablet 00:00: mouth [place] 00 every 6 Medical (six) Branch hours as needed for Nausea and Vomiting (N/V). 2021-02 Yes [id number] Take 1 [facility] vers vit 2-03 combo pack ity of 33-iron-fol 00:00: daily [place] ic-dha 00 Medical (SELECT-OB Branch + DHA) 29 mg iron-1 mg -250 mg combo pack 2021-02 Yes [id number] Take 1 [facility] vers vit 2-03 combo pack ity of 33-iron-fol 00:00: daily [place] ic-dha 00 Medical (SELECT-OB Branch + DHA) 29 mg iron-1 mg -250 mg combo pack 2021-02 Yes [id number] Take 1 [facility] vers vit 2-03 combo pack ity of 33-iron-fol 00:00: daily [place] ic-dha 00 Medical (SELECT-OB Branch + DHA) 29 mg iron-1 mg -250 mg combo pack 2021-02 Yes [id number] Take 1 [facility] vers vit 2-03 combo pack ity of 33-iron-fol 00:00: daily [place] ic-dha 00 Medical (SELECT-OB Branch + DHA) 29 mg iron-1 mg -250 mg combo pack 2021-02 Yes [id number] Take 1 [facility] vers vit 2-03 combo pack ity of 33-iron-fol 00:00: daily [place] ic-dha 00 Medical (SELECT-OB Branch + DHA) 29 mg iron-1 mg -250 mg combo pack 2021-02 Yes [id number] Take 1 [facility] vers vit 2-03 combo pack ity of 33-iron-fol 00:00: daily [place] ic-dha 00 Medical (SELECT-OB Branch + DHA) 29 mg iron-1 mg -250 mg combo pack proMETHazin 2021-02 Yes [id number] 25mg Take 1 [facility] e 25 mg 2-03 tablet by ity of tablet 00:00: mouth [place] 00 every 6 Medical (six) Branch hours as needed for Nausea and Vomiting (N/V). 2021-02 Yes [id number] Take 1 [facility] vers vit 2-03 combo pack ity of 33-iron-fol 00:00: daily [place] ic-dha 00 Medical (SELECT-OB Branch + DHA) 29 mg iron-1 mg -250 mg combo pack 2021-02 Yes [id number] Take 1 [facility] vers vit 2-03 combo pack ity of 33-iron-fol 00:00: daily [place] ic-dha 00 Medical (SELECT-OB Branch + DHA) 29 mg iron-1 mg -250 mg combo pack 2021-02 Yes [id number] Take 1 [facility] vers vit 2-03 combo pack ity of 33-iron-fol 00:00: daily [place] ic-dha 00 Medical (SELECT-OB Branch + DHA) 29 mg iron-1 mg -250 mg combo pack 2021-02 Yes [id number] Take 1 [facility] vers vit 2-03 combo pack ity of 33-iron-fol 00:00: daily [place] ic-dha 00 Medical (SELECT-OB Branch + DHA) 29 mg iron-1 mg -250 mg combo pack 2021-02 Yes [id number] Take 1 [facility] vers vit 2-03 combo pack ity of 33-iron-fol 00:00: daily [place] ic-dha 00 Medical (SELECT-OB Branch + DHA) 29 mg iron-1 mg -250 mg combo pack proMETHazin 2021-02 Yes [id number] 25mg Take 1 [facility] e 25 mg 2-03 tablet by ity of tablet 00:00: mouth [place] 00 every 6 Medical (six) Branch hours as needed for Nausea and Vomiting (N/V). 2021-02 Yes [id number] Take 1 [facility] vers vit 2-03 combo pack ity of 33-iron-fol 00:00: daily [place] ic-dha 00 Medical (SELECT-OB Branch + DHA) 29 mg iron-1 mg -250 mg combo pack 2021-02 Yes [id number] Take 1 [facility] vers vit 2-03 combo pack ity of 33-iron-fol 00:00: daily [place] ic-dha 00 Medical (SELECT-OB Branch + DHA) 29 mg iron-1 mg -250 mg combo pack 2021-02 Yes [id number] Take 1 [facility] vers vit 2-03 combo pack ity of 33-iron-fol 00:00: daily [place] ic-dha 00 Medical (SELECT-OB Branch + DHA) 29 mg iron-1 mg -250 mg combo pack proMETHazin 2021-02 Yes [id number] 25mg Take 1 [facility] e 25 mg 2-03 tablet by ity of tablet 00:00: mouth [place] 00 every 6 Medical (six) Branch hours as needed for Nausea and Vomiting (N/V). 2021-02 Yes [id number] Take 1 [facility] vers vit 2-03 combo pack ity of 33-iron-fol 00:00: daily [place] ic-dha 00 Medical (SELECT-OB Branch + DHA) 29 mg iron-1 mg -250 mg combo pack 2021-02 Yes [id number] Take 1 [facility] vers vit 2-03 combo pack ity of 33-iron-fol 00:00: daily [place] ic-dha 00 Medical (SELECT-OB Branch + DHA) 29 mg iron-1 mg -250 mg combo pack 2021-02 Yes [id number] Take 1 [facility] vers vit 2-03 combo pack ity of 33-iron-fol 00:00: daily [place] ic-dha 00 Medical (SELECT-OB Branch + DHA) 29 mg iron-1 mg -250 mg combo pack proMETHazin 2021-02 Yes [id number] 25mg Take 1 [facility] e 25 mg 2-03 tablet by ity of tablet 00:00: mouth [place] 00 every 6 Medical (six) Branch hours as needed for Nausea and Vomiting (N/V). 2021-02 Yes [id number] Take 1 [facility] vers vit 2-03 combo pack ity of 33-iron-fol 00:00: daily [place] ic-dha 00 Medical (SELECT-OB Branch + DHA) 29 mg iron-1 mg -250 mg combo pack proMETHazin 2021-02 Yes [id number] 25mg Take 1 [facility] e 25 mg 2-03 tablet by ity of tablet 00:00: mouth [place] 00 every 6 Medical (six) Branch hours as needed for Nausea and Vomiting (N/V). 2021-02 Yes [id number] Take 1 [facility] vers vit 2-03 combo pack ity of 33-iron-fol 00:00: daily [place] ic-dha 00 Medical (SELECT-OB Branch + DHA) 29 mg iron-1 mg -250 mg combo pack proMETHazin 2021-02 Yes [id number] 25mg Take 1 [facility] e 25 mg 2-03 tablet by ity of tablet 00:00: mouth [place] 00 every 6 Medical (six) Branch hours as needed for Nausea and Vomiting (N/V). 2021-02 Yes [id number] Take 1 [facility] vers vit 2-03 combo pack ity of 33-iron-fol 00:00: daily [place] ic-dha 00 Medical (SELECT-OB Branch + DHA) 29 mg iron-1 mg -250 mg combo pack proMETHazin 2021-02 Yes [id number] 25mg Take 1 [facility] e 25 mg 2-03 tablet by ity of tablet 00:00: mouth [place] 00 every 6 Medical (six) Branch hours as needed for Nausea and Vomiting (N/V). 2021-02 Yes [id number] Take 1 [facility] vers vit 2-03 combo pack ity of 33-iron-fol 00:00: daily [place] ic-dha 00 Medical (SELECT-OB Branch + DHA) 29 mg iron-1 mg -250 mg combo pack proMETHazin 2021-02 Yes [id number] 25mg Take 1 [facility] e 25 mg 2-03 tablet by ity of tablet 00:00: mouth [place] 00 every 6 Medical (six) Branch hours as needed for Nausea and Vomiting (N/V). 2021-02 Yes [id number] Take 1 [facility] vers vit 2-03 combo pack ity of 33-iron-fol 00:00: daily [place] ic-dha 00 Medical (SELECT-OB Branch + DHA) 29 mg iron-1 mg -250 mg combo pack proMETHazin 2021-02 Yes [id number] 25mg Take 1 [facility] e 25 mg 2-03 tablet by ity of tablet 00:00: mouth [place] 00 every 6 Medical (six) Branch hours as needed for Nausea and Vomiting (N/V). 2021-02 Yes [id number] Take 1 [facility] vers vit 2-03 combo pack ity of 33-iron-fol 00:00: daily [place] ic-dha 00 Medical (SELECT-OB Branch + DHA) 29 mg iron-1 mg -250 mg combo pack proMETHazin 2021-02 Yes [id number] 25mg Take 1 [facility] e 25 mg 2-03 tablet by ity of tablet 00:00: mouth [place] 00 every 6 Medical (six) Branch hours as needed for Nausea and Vomiting (N/V). 2021-02 Yes [id number] Take 1 [facility] vers vit 2-03 combo pack ity of 33-iron-fol 00:00: daily [place] ic-dha 00 Medical (SELECT-OB Branch + DHA) 29 mg iron-1 mg -250 mg combo pack proMETHazin 2021-02 Yes [id number] 25mg Take 1 [facility] e 25 mg 2-03 tablet by ity of tablet 00:00: mouth [place] 00 every 6 Medical (six) Branch hours as needed for Nausea and Vomiting (N/V). 2021-02 Yes [id number] Take 1 [facility] vers vit 2-03 combo pack ity of 33-iron-fol 00:00: daily [place] ic-dha 00 Medical (SELECT-OB Branch + DHA) 29 mg iron-1 mg -250 mg combo pack proMETHazin 2021-02 Yes [id number] 25mg Take 1 [facility] e 25 mg 2-03 tablet by ity of tablet 00:00: mouth [place] 00 every 6 Medical (six) Branch hours as needed for Nausea and Vomiting (N/V). 2021-02 Yes [id number] Take 1 [facility] vers vit 2-03 combo pack ity of 33-iron-fol 00:00: daily [place] ic-dha 00 Medical (SELECT-OB Branch + DHA) 29 mg iron-1 mg -250 mg combo pack proMETHazin 2021-02 Yes [id number] 25mg Take 1 [facility] e 25 mg 2-03 tablet by ity of tablet 00:00: mouth [place] 00 every 6 Medical (six) Branch hours as needed for Nausea and Vomiting (N/V). 2021-02 Yes [id number] Take 1 [facility] vers vit 2-03 combo pack ity of 33-iron-fol 00:00: daily [place] ic-dha 00 Medical (SELECT-OB Branch + DHA) 29 mg iron-1 mg -250 mg combo pack proMETHazin 2021-02 Yes [id number] 25mg Take 1 [facility] e 25 mg 2-03 tablet by ity of tablet 00:00: mouth [place] 00 every 6 Medical (six) Branch hours as needed for Nausea and Vomiting (N/V). 2021-02 Yes [id number] Take 1 [facility] vers vit 2-03 combo pack ity of 33-iron-fol 00:00: daily [place] ic-dha 00 Medical (SELECT-[facility] Branch + DHA) 29 mg iron-1 mg -250 mg combo pack proMETHazin 2021-02 Yes [id number] 25mg Take 1 [facility] e 25 mg 2-03 tablet by ity of tablet 00:00: mouth [place] 00 every 6 Medical (six) Branch hours as needed for Nausea and Vomiting (N/V). 2021-02 Yes [id number] Take 1 [facility] vers vit 2-03 combo pack ity of 33-iron-fol 00:00: daily [place] ic-dha 00 Medical (SELECT-[facility] Branch + DHA) 29 mg iron-1 mg -250 mg combo pack proMETHazin 2021-02 Yes [id number] 25mg Take 1 [facility] e 25 mg 2-03 tablet by ity of tablet 00:00: mouth [place] 00 every 6 Medical (six) Branch hours as needed for Nausea and Vomiting (N/V). 2021-02 Yes [id number] Take 1 [facility] vers vit 2-03 combo pack ity of 33-iron-fol 00:00: daily [place] ic-dha 00 Medical (SELECT-[facility] Branch + DHA) 29 mg iron-1 mg -250 mg combo pack proMETHazin 2021-02 Yes [id number] 25mg Take 1 [facility] e 25 mg 2-03 tablet by ity of tablet 00:00: mouth [place] 00 every 6 Medical (six) Branch hours as needed for Nausea and Vomiting (N/V). 2021-02 Yes [id number] Take 1 [facility] vers vit 2-03 combo pack ity of 33-iron-fol 00:00: daily [place] ic-dha 00 Medical (SELECT-[facility] Branch + DHA) 29 mg iron-1 mg -250 mg combo pack proMETHazin 2021-02 Yes [id number] 25mg Take 1 [facility] e 25 mg 2-03 tablet by ity of tablet 00:00: mouth [place] 00 every 6 Medical (six) Branch hours as needed for Nausea and Vomiting (N/V). 2021-02 Yes [id number] Take 1 [facility] vers vit 2-03 combo pack ity of 33-iron-fol 00:00: daily [place] ic-dha 00 Medical (SELECT-[facility] Branch + DHA) 29 mg iron-1 mg -250 mg combo pack proMETHazin 2021-02 Yes [id number] 25mg Take 1 [facility] e 25 mg 2-03 tablet by ity of tablet 00:00: mouth [place] 00 every 6 Medical (six) Branch hours as needed for Nausea and Vomiting (N/V). 2021-02 Yes [id number] Take 1 [facility] vers vit 2-03 combo pack ity of 33-iron-fol 00:00: daily [place] ic-dha 00 Medical (SELECT-OB Branch + DHA) 29 mg iron-1 mg -250 mg combo pack proMETHazin 2021-02 Yes [id number] 25mg Take 1 [facility] e 25 mg 2-03 tablet by ity of tablet 00:00: mouth [place] 00 every 6 Medical (six) Branch hours as needed for Nausea and Vomiting (N/V). 2021-02 Yes [id number] Take 1 [facility] vers vit 2-03 combo pack ity of 33-iron-fol 00:00: daily [place] ic-dha 00 Medical (SELECT-[facility] Branch + DHA) 29 mg iron-1 mg -250 mg combo pack proMETHazin 2021-02 Yes [id number] 25mg Take 1 [facility] e 25 mg 2-03 tablet by ity of tablet 00:00: mouth [place] 00 every 6 Medical (six) Branch hours as needed for Nausea and Vomiting (N/V). 2021-02 Yes [id number] Take 1 [facility] vers vit 2-03 combo pack ity of 33-iron-fol 00:00: daily [place] ic-dha 00 Medical (SELECT-[facility] Branch + DHA) 29 mg iron-1 mg -250 mg combo pack proMETHazin 2021-02 Yes [id number] 25mg Take 1 [facility] e 25 mg 2-03 tablet by ity of tablet 00:00: mouth [place] 00 every 6 Medical (six) Branch hours as needed for Nausea and Vomiting (N/V). 2021-02 Yes [id number] Take 1 [facility] vers vit 2-03 combo pack ity of 33-iron-fol 00:00: daily [place] ic-dha 00 Medical (SELECT-[facility] Branch + DHA) 29 mg iron-1 mg -250 mg combo pack proMETHazin 2021-02 Yes [id number] 25mg Take 1 [facility] e 25 mg 2-03 tablet by ity of tablet 00:00: mouth [place] 00 every 6 Medical (six) Branch hours as needed for Nausea and Vomiting (N/V). 2021-02 Yes [id number] Take 1 [facility] vers vit 2-03 combo pack ity of 33-iron-fol 00:00: daily [place] ic-dha 00 Medical (SELECT-[facility] Branch + DHA) 29 mg iron-1 mg -250 mg combo pack proMETHazin 2021-02 Yes [id number] 25mg Take 1 [facility] e 25 mg 2-03 tablet by ity of tablet 00:00: mouth [place] 00 every 6 Medical (six) Branch hours as needed for Nausea and Vomiting (N/V). 2021-02 Yes [id number] Take 1 [facility] vers vit 2-03 combo pack ity of 33-iron-fol 00:00: daily [place] ic-dha 00 Medical (SELECT-[facility] Branch + DHA) 29 mg iron-1 mg -250 mg combo pack proMETHazin 2021-02 Yes [id number] 25mg Take 1 [facility] e 25 mg 2-03 tablet by ity of tablet 00:00: mouth [place] 00 every 6 Medical (six) Branch hours as needed for Nausea and Vomiting (N/V). 2021-02 Yes [id number] Take 1 [facility] vers vit 2-03 combo pack ity of 33-iron-fol 00:00: daily [place] ic-dha 00 Medical (SELECT-[facility] Branch + DHA) 29 mg iron-1 mg -250 mg combo pack proMETHazin 2021-02 Yes [id number] 25mg Take 1 [facility] e 25 mg 2-03 tablet by ity of tablet 00:00: mouth [place] 00 every 6 Medical (six) Branch hours as needed for Nausea and Vomiting (N/V). 2021-02 Yes [id number] Take 1 [facility] vers vit 2-03 combo pack ity of 33-iron-fol 00:00: daily [place] ic-dha 00 Medical (SELECT-[facility] Branch + DHA) 29 mg iron-1 mg -250 mg combo pack proMETHazin 2021-02 Yes [id number] 25mg Take 1 [facility] e 25 mg 2-03 tablet by ity of tablet 00:00: mouth [place] 00 every 6 Medical (six) Branch hours as needed for Nausea and Vomiting (N/V). 2021-02 Yes [id number] Take 1 [facility] vers vit 2-03 combo pack ity of 33-iron-fol 00:00: daily [place] ic-dha 00 Medical (SELECT-[facility] Branch + DHA) 29 mg iron-1 mg -250 mg combo pack proMETHazin 2021-02 Yes [id number] 25mg Take 1 [facility] e 25 mg 2-03 tablet by ity of tablet 00:00: mouth [place] 00 every 6 Medical (six) Branch hours as needed for Nausea and Vomiting (N/V). 2021-02 Yes [id number] Take 1 [facility] vers vit 2-03 combo pack ity of 33-iron-fol 00:00: daily [place] ic-dha 00 Medical (SELECT-[facility] Branch + DHA) 29 mg iron-1 mg -250 mg combo pack proMETHazin 2021-02 Yes [id number] 25mg Take 1 [facility] e 25 mg 2-03 tablet by ity of tablet 00:00: mouth [place] 00 every 6 Medical (six) Branch hours as needed for Nausea and Vomiting (N/V). 2021-02 Yes [id number] Take 1 [facility] vers vit 2-03 combo pack ity of 33-iron-fol 00:00: daily [place] ic-dha 00 Medical (SELECT-[facility] Branch + DHA) 29 mg iron-1 mg -250 mg combo pack proMETHazin 2021-02 Yes [id number] 25mg Take 1 [facility] e 25 mg 2-03 tablet by ity of tablet 00:00: mouth [place] 00 every 6 Medical (six) Branch hours as needed for Nausea and Vomiting (N/V). 2021-02 Yes [id number] Take 1 [facility] vers vit 2-03 combo pack ity of 33-iron-fol 00:00: daily [place] ic-dha 00 Medical (SELECT-OB Branch + DHA) 29 mg iron-1 mg -250 mg combo pack proMETHazin 2021-02 Yes [id number] 25mg Take 1 [facility] e 25 mg 2-03 tablet by ity of tablet 00:00: mouth [place] 00 every 6 Medical (six) Branch hours as needed for Nausea and Vomiting (N/V). 2021-02 Yes [id number] Take 1 [facility] vers vit 2-03 combo pack ity of 33-iron-fol 00:00: daily [place] ic-dha 00 Medical (SELECT-OB Branch + DHA) 29 mg iron-1 mg -250 mg combo pack 2021-02 Yes [id number] Take 1 [facility] vers vit 2-03 combo pack ity of 33-iron-fol 00:00: daily [place] ic-dha 00 Medical (SELECT-OB Branch + DHA) 29 mg iron-1 mg -250 mg combo pack 2021-02 Yes [id number] Take 1 [facility] vers vit 2-03 combo pack ity of 33-iron-fol 00:00: daily [place] ic-dha 00 Medical (SELECT-OB Branch + DHA) 29 mg iron-1 mg -250 mg combo pack 2021-02 Yes [id number] Take 1 [facility] vers vit 2-03 combo pack ity of 33-iron-fol 00:00: daily [place] ic-dha 00 Medical (SELECT-OB Branch + DHA) 29 mg iron-1 mg -250 mg combo pack 2021-02 Yes [id number] Take 1 [facility] vers vit 2-03 combo pack ity of 33-iron-fol 00:00: daily [place] ic-dha 00 Medical (SELECT-OB Branch + DHA) 29 mg iron-1 mg -250 mg combo pack 2021-02- No [id number] Take 1 [facility] vit 2- 07-15 combo pack ity of 33-iron-fol 00:00: 00:00 [place] [facility] 00 :00 Medical (SELECT-OB Branch + DHA) 29 mg iron-1 mg -250 mg combo pack proMETHazin 2021-02- No [id number] 25mg Take 1 [facility] e 25 mg 2- 04-24 tablet by ity of tablet 00:00: 00:00 mouth [place] 00 :00 every 6 Medical (six) Branch hours as needed for Nausea and Vomiting (N/V). No known 2020-02 No [facility] medications 2-16 ity of 14:27: 13 [address] No known 2020-02 No Univers medications 2-16 ity of 14:27: [address] No known 2020-02 No No known Unive rs medications 2-16 medication it y of 14:27: s [address] No known 2020-02 No Univers medications 2-16 ity of 14:27: [address] phenazopyri 2017- Yes 200mg Take 1 Uni vers dine 200 mg 6-28 tablet by ity of tablet 00:00: mouth 3 00 (three) Medical times Branch daily. Nitrofurant 2017- Yes 100mg Take 1 Uni vers oin&Nit. 6-28 capsule by ity o f [place] ([place]CROB[place] 00 (two) Medical 100 mg times Branch capsule daily. naproxen Yes 550mg Take 1 Univer s sodium 550 6-28 tablet by ity of mg tablet 00:00: mouth 2 00 (two) Medical times Branch daily with meals. phenazopyri 2020- No 200mg Take 1 Un elizabeth dine 200 mg 6-28 12-27 tablet by it y of tablet 00:00: 00:00 mouth 3 [place] 00 :00 (three) Medical times Branch daily. Nitrofurant 2019- No 100mg Take 1 Un elizabeth oin&Nit. 08-12- capsule by ity of [place] 00:00: 00:00 mouth 2 [place] (MACROBID) 00 :00 (two) Medical 100 mg times Branch capsule daily. naproxen 2019- No 550mg Take 1 Unive rs sodium 550 08-12- tablet by ity of mg tablet 00:00: [...] 50mg Take 1 Univer s (ULTRAM) 50 -12 27- tablet by it y of mg tablet 00:00: 00:00 mouth [place] 00 :00 every 6 Medical (six) Branch hours as needed for Pain (scale 4-6). No known No Univers medications ity of [facility] Immunizations Ordered Immunization Filled Immunization Date Status Commen ts Source Name Name Varicella 2022-08-29 Completed University of (varivax)(chicken 00:00:00 [place] M edical pox) Branch Influenza Virus 2022-03-19 Completed Universit y of [facility], 00:00:00 [facility] [place] [facility] dical Preserv and ABX Free Bran ch 6 MO-64 YRS Influenza Virus 2022-03-19 Completed Universit y of [facility], 00:00:00 [facility] [place] [facility] dical Preserv and ABX Free Bran ch 6 MO-64 YRS Influenza Virus 2022-03-19 Completed Universit y of [facility], 00:00:00 [place] [facility] dical Preserv and ABX Free Bran ch 6 MO-64 YRS Influenza Virus 2022-03-19 Completed Universit y of [facility], 00:00:00 [place] [facility] dical Preserv and ABX Free Bran ch 6 MO-64 YRS Influenza Virus 2022-03-19 Completed Universit y of [facility], 00:00:00 [place] [facility] dical Preserv and ABX Free Bran ch 6 MO-64 YRS Influenza Virus 2022-03-19 Completed Universit y of [facility], 00:00:00 [place] Me dical Preserv and ABX Free Bran ch 6 MO-64 YRS Influenza Virus 2022-03-19 Completed Universit y of [facility], 00:00:00 [place] Me dical Preserv and ABX Free Bran ch 6 MO-64 YRS Influenza Virus 2022-03-19 Completed Universit y of [facility], 00:00:00 [place] Me dical Preserv and ABX Free Bran ch 6 MO-64 YRS Influenza Virus 2022-03-19 Completed Universit y of [facility], 00:00:00 [place] Me dical Preserv and ABX Free Bran ch 6 MO-64 YRS Influenza Virus 2022-03-19 Completed Universit y of [facility], 00:00:00 [place] Me dical Preserv and ABX Free Bran ch 6 MO-64 YRS Influenza Virus 2022-03-19 Completed Universit y of [facility], 00:00:00 [place] Me dical Preserv and ABX Free Bran ch 6 MO-64 YRS Influenza Virus 2022-03-19 Completed Universit y of [facility], 00:00:00 [place] Me dical Preserv and ABX Free Bran ch 6 MO-64 YRS Influenza Virus 2022-03-19 Completed Universit y of [facility], 00:00:00 [place] Me dical Preserv and ABX Free Bran ch 6 MO-64 YRS Influenza Virus 2022-03-19 Completed Universit y of [facility], 00:00:00 [place] Me dical Preserv and ABX Free Bran ch 6 MO-64 YRS Influenza Virus 2022-03-19 Completed Universit y of [facility], 00:00:00 [place] Me dical Preserv and ABX Free Bran ch 6 MO-64 YRS Influenza Virus 2022-03-19 Completed Universit y of [facility], 00:00:00 [place] Me dical Preserv and ABX Free Bran ch 6 MO-64 YRS Influenza Virus 2022-03-19 Completed Universit y of [facility], 00:00:00 [place] Me dical Preserv and ABX Free Bran ch 6 MO-64 YRS Influenza Virus 2022-03-19 Completed Universit y of [facility], 00:00:00 [place] Me dical Preserv and ABX Free Bran ch 6 MO-64 YRS Influenza Virus 2022-03-19 Completed Universit y of [facility], 00:00:00 [place] Me dical Preserv and ABX Free Bran ch 6 MO-64 YRS Influenza Virus 2022-03-19 Completed Universit y of [facility], 00:00:00 [place] Me dical Preserv and ABX Free Bran ch 6 MO-64 YRS Influenza Virus 2022-03-19 Completed Universit y of [facility], 00:00:00 [place] Me dical Preserv and ABX Free Bran ch 6 MO-64 YRS Influenza Virus 2022-03-19 Completed Universit y of [facility], 00:00:00 [place] Me dical Preserv and ABX Free Bran ch 6 MO-64 YRS Influenza Virus 2022-03-19 Completed Universit y of [facility], 00:00:00 [place] Me dical Preserv and ABX Free Bran ch 6 MO-64 YRS Influenza Virus 2022-03-19 Completed Universit y of Vaccine [facility], 00:00:00 [place] Me dical Preserv and ABX Free Bran ch 6 MO-64 YRS Influenza Virus 2022-03-19 Completed Universit y of [facility], 00:00:00 [place] Me dical Preserv and ABX Free Bran ch 6 MO-64 YRS Influenza Virus 2022-03-19 Completed Universit y of Vaccine [facility], 00:00:00 [place] Me dical Preserv and ABX Free Bran ch 6 MO-64 YRS Influenza Virus 2022-03-19 Completed Universit y of [facility]ine [facility], 00:00:00 [place] Me dical Preserv and ABX Free Bran ch 6 MO-64 YRS Influenza Virus 2022-03-19 Completed Universit y of [facility], 00:00:00 [place] Me dical Preserv and ABX Free Bran ch 6 MO-64 YRS Influenza Virus 2022-03-19 Completed Universit y of [facility], 00:00:00 [place] Me dical Preserv and ABX Free Bran ch 6 MO-64 YRS Influenza Virus 2022-03-19 Completed Universit y of [facility], 00:00:00 [place] Me dical Preserv and ABX Free Bran ch 6 MO-64 YRS Influenza Virus 2022-03-19 Completed Universit y of [facility], 00:00:00 [place] Me dical Preserv and ABX Free Bran ch 6 MO-64 YRS Influenza Virus 2022-03-19 Completed Universit y of [facility], 00:00:00 [place] Me dical Preserv and ABX Free Bran ch 6 MO-64 YRS Influenza Virus 2022-03-19 Completed Universit y of [facility], 00:00:00 [place] Me dical Preserv and ABX Free Bran ch 6 MO-64 YRS Influenza Virus 2022-03-19 Completed Universit y of [facility], 00:00:00 [place] Me dical Preserv and ABX Free Bran ch 6 MO-64 YRS Influenza Virus 2022-03-19 Completed Universit y of [facility], 00:00:00 [place] Me dical Preserv and ABX Free Bran ch 6 MO-64 YRS Influenza Virus 2022-03-19 Completed Universit y of [facility], 00:00:00 [place] Me dical Preserv and ABX Free Bran ch 6 MO-64 YRS Influenza Virus 2022-03-19 Completed Universit y of [facility], 00:00:00 [place] Me dical Preserv and ABX Free Bran ch 6 MO-64 YRS Influenza Virus 2022-03-19 Completed Universit y of Vacc[facility], 00:00:00 [place] Me dical Preserv and ABX Free Bran ch 6 MO-64 YRS Influenza Virus 2022-03-19 Completed Universit y of Vaccine [facility], 00:00:00 [place] Me dical Preserv and ABX Free Bran ch 6 MO-64 YRS Influenza Virus 2022-03-19 Completed Universit y of Vacc[facility], 00:00:00 [place] Me dical Preserv and ABX Free Bran ch 6 MO-64 YRS Influenza Virus 2022-03-19 Completed Universit y of [facility], 00:00:00 [place] Me dical Preserv and ABX Free Bran ch 6 MO-64 YRS Influenza Virus 2022-03-19 Completed Universit y of [facility], 00:00:00 [place] Me dical Preserv and ABX Free Bran ch 6 MO-64 YRS Influenza Virus 2022-03-19 Completed Universit y of Vacc[facility], 00:00:00 [place] Me dical Preserv and ABX Free Bran ch 6 MO-64 YRS Influenza Virus 2022-03-19 Completed Universit y of Vaccine [facility], 00:00:00 [place] Me dical Preserv and ABX Free Bran ch 6 MO-64 YRS Influenza Virus 2022-03-19 Completed Universit y of Vaccine [facility], 00:00:00 [place] Me dical Preserv and ABX Free Bran ch 6 MO-64 YRS Influenza Virus 2022-03-19 Completed Universit y of Vacc[facility], 00:00:00 [place] Me dical Preserv and ABX Free Bran ch 6 MO-64 YRS Influenza Virus 2022-03-19 Completed Universit y of Vaccine [facility], 00:00:00 [place] Me dical Preserv and ABX Free Bran ch 6 MO-64 YRS Influenza Virus 2022-03-19 Completed Universit y of Vaccine [facility], 00:00:00 [place] Me dical Preserv and ABX Free Bran ch 6 MO-64 YRS Influenza Virus 2022-03-19 Completed Universit y of Vacc[facility], 00:00:00 [place] Me dical Preserv and ABX Free Bran ch 6 MO-64 YRS Influenza Virus 2022-03-19 Completed Universit y of Vaccine [facility], 00:00:00 [place] Me dical Preserv and ABX Free Bran ch 6 MO-64 YRS Influenza Virus 2022-03-19 Completed Universit y of Vaccine [facility], 00:00:00 [place] [facility] dical Preserv and ABX Free Bran ch 6 MO-64 YRS Influenza Virus 2022-03-19 Completed Universit y of Vaccine [facility], 00:00:00 [place] [facility] dical Preserv and ABX Free Bran ch 6 MO-64 YRS Influenza Virus 2022-03-19 Completed Universit y of Vaccine [facility], 00:00:00 [place] Me dical Preserv and ABX Free Bran ch 6 MO-64 YRS Influenza Virus 2022-03-19 Completed Universit y of Vacc[facility], 00:00:00 [place] Me dical Preserv and ABX Free Bran ch 6 MO-64 YRS Influenza Virus 2022-03-19 Completed Universit y of Vaccine [facility], 00:00:00 [place] [facility] dical Preserv and ABX Free Bran ch 6 MO-64 YRS Influenza Virus 2022-03-19 Completed Universit y of Vaccine [facility], 00:00:00 [place] Me dical Preserv and ABX Free Bran ch 6 MO-64 YRS Influenza Virus 2022-03-19 Completed Universit y of Vaccine [facility], 00:00:00 [place] Me dical Preserv and ABX Free Bran ch 6 MO-64 YRS Influenza Virus 2022-03-19 Completed Universit y of Vaccine [facility], 00:00:00 [place] Me dical Preserv and ABX Free Bran ch 6 MO-64 YRS Influenza Virus 2022-03-19 Completed Universit y of Vacc[facility], 00:00:00 [place] [facility] dical Preserv and ABX Free Bran ch 6 MO-64 YRS Influenza Virus 2022-03-19 Completed Universit y of Vaccine [facility], 00:00:00 [place] Me dical Preserv and ABX Free Bran ch 6 MO-64 YRS Influenza Virus 2022-03-19 Completed Universit y of Vaccine [facility], 00:00:00 [place] Me dical Preserv and ABX Free Bran ch 6 MO-64 YRS Influenza Virus 2022-03-19 Completed Universit y of Vaccine [facility], 00:00:00 [place] Me dical Preserv and ABX Free Bran ch 6 MO-64 YRS Influenza Virus 2022-03-19 Completed Universit y of Vaccine [facility], 00:00:00 [place] Me dical Preserv and ABX Free Bran ch 6 MO-64 YRS Influenza Virus 2022-03-19 Completed Universit y of Vaccine [facility] IM, 00:00:00 [place] Me dical Preserv and ABX Free Bran ch 6 MO-64 YRS SARS-COV-2 COVID-19 2020-11-13 Completed Unive rsity of PFIZER VACCINE 00:00:00 [facility] SARS-COV-2 COVID-19 2020-11-13 Completed Unive rsity of PFIZER VACCINE 00:00:00 [facility] SARS-COV-2 COVID-19 2020-11-13 Completed Unive rsity of PFIZER VACCINE 00:00:00 [facility] SARS-COV-2 COVID-19 2020-11-13 Completed Unive rsity of PFIZER VACCINE 00:00:00 [facility] SARS-COV-2 COVID-19 2020-11-13 Completed Unive rsity of PFIZER VACCINE 00:00:00 [facility] SARS-COV-2 COVID-19 2020-11-13 Completed Unive rsity of PFIZER VACCINE 00:00:00 [facility] SARS-COV-2 COVID-19 2020-11-13 Completed Unive rsity of PFIZER VACCINE 00:00:00 [facility] SARS-COV-2 COVID-19 2020-11-13 Completed Unive rsity of PFIZER VACCINE 00:00:00 [facility] SARS-COV-2 COVID-19 2020-11-13 Completed Unive rsity of PFIZER VACCINE 00:00:00 [facility] SARS-COV-2 COVID-19 2020-11-13 Completed Unive rsity of PFIZER VACCINE 00:00:00 [facility] SARS-COV-2 COVID-19 2020-11-13 Completed Unive rsity of PFIZER VACCINE 00:00:00 [facility] SARS-COV-2 COVID-19 2020-11-13 Completed Unive rsity of PFIZER VACCINE 00:00:00 [facility] SARS-COV-2 COVID-19 2020-11-13 Completed Unive rsity of PFIZER VACCINE 00:00:00 [facility] SARS-COV-2 COVID-19 2020-11-13 Completed Unive rsity of PFIZER VACCINE 00:00:00 [facility] SARS-COV-2 COVID-19 2020-11-13 Completed Unive rsity of PFIZER VACCINE 00:00:00 [facility] SARS-COV-2 COVID-19 2020-11-13 Completed Unive rsity of PFIZER VACCINE 00:00:00 [facility] SARS-COV-2 COVID-19 2020-11-13 Completed Unive rsity of PFIZER VACCINE 00:00:00 [facility] SARS-COV-2 COVID-19 2020-11-13 Completed Unive rsity of PFIZER VACCINE 00:00:00 [facility] SARS-COV-2 COVID-19 2020-11-13 Completed Unive rsity of PFIZER VACCINE 00:00:00 [facility] SARS-COV-2 COVID-19 2020-11-13 Completed Unive rsity of PFIZER VACCINE 00:00:00 [facility] SARS-COV-2 COVID-19 2020-11-13 Completed Unive rsity of PFIZER VACCINE 00:00:00 [facility] SARS-COV-2 COVID-19 2020-11-13 Completed Unive rsity of PFIZER VACCINE 00:00:00 [facility] SARS-COV-2 COVID-19 2020-11-13 Completed Unive rsity of PFIZER VACCINE 00:00:00 [facility] SARS-COV-2 COVID-19 2020-11-13 Completed Unive rsity of PFIZER VACCINE 00:00:00 [facility] SARS-COV-2 COVID-19 2020-11-13 Completed Unive rsity of PFIZER VACCINE 00:00:00 [facility] SARS-COV-2 COVID-19 2020-11-13 Completed Unive rsity of PFIZER VACCINE 00:00:00 [facility] SARS-COV-2 COVID-19 2020-11-13 Completed Unive rsity of PFIZER VACCINE 00:00:00 [facility] SARS-COV-2 COVID-19 2020-11-13 Completed Unive rsity of PFIZER VACCINE 00:00:00 [facility] SARS-COV-2 COVID-19 2020-11-13 Completed Unive rsity of PFIZER VACCINE 00:00:00 [facility] SARS-COV-2 COVID-19 2020-11-13 Completed Unive rsity of PFIZER VACCINE 00:00:00 [facility] SARS-COV-2 COVID-19 2020-11-13 Completed Unive rsity of PFIZER VACCINE 00:00:00 [facility] SARS-COV-2 COVID-19 2020-11-13 Completed Unive rsity of PFIZER VACCINE 00:00:00 [facility] SARS-COV-2 COVID-19 2020-11-13 Completed Unive rsity of PFIZER VACCINE 00:00:00 [facility] SARS-COV-2 COVID-19 2020-11-13 Completed Unive rsity of PFIZER VACCINE 00:00:00 [facility] SARS-COV-2 COVID-19 2020-11-13 Completed Unive rsity of PFIZER VACCINE 00:00:00 [facility] SARS-COV-2 COVID-19 2020-11-13 Completed Unive rsity of PFIZER VACCINE 00:00:00 [facility] SARS-COV-2 COVID-19 2020-11-13 Completed Unive rsity of PFIZER VACCINE 00:00:00 [facility] SARS-COV-2 COVID-19 2020-11-13 Completed Unive rsity of PFIZER VACCINE 00:00:00 [facility] SARS-COV-2 COVID-19 2020-11-13 Completed Unive rsity of PFIZER VACCINE 00:00:00 [facility] SARS-COV-2 COVID-19 2020-11-13 Completed Unive rsity of PFIZER VACCINE 00:00:00 [facility] SARS-COV-2 COVID-19 2020-11-13 Completed Unive rsity of PFIZER VACCINE 00:00:00 [facility] SARS-COV-2 COVID-19 2020-11-13 Completed Unive rsity of PFIZER VACCINE 00:00:00 [facility] SARS-COV-2 COVID-19 2020-11-13 Completed Unive rsity of PFIZER VACCINE 00:00:00 [facility] SARS-COV-2 COVID-19 2020-11-13 Completed Unive rsity of PFIZER VACCINE 00:00:00 [facility] SARS-COV-2 COVID-19 2020-11-13 Completed Unive rsity of PFIZER VACCINE 00:00:00 [facility] SARS-COV-2 COVID-19 2020-11-13 Completed Unive rsity of PFIZER VACCINE 00:00:00 [facility] SARS-COV-2 COVID-19 2020-11-13 Completed Unive rsity of PFIZER VACCINE 00:00:00 [facility] SARS-COV-2 COVID-19 2020-11-13 Completed Unive rsity of PFIZER VACCINE 00:00:00 [facility] SARS-COV-2 COVID-19 2020-11-13 Completed Unive rsity of PFIZER VACCINE 00:00:00 [facility] SARS-COV-2 COVID-19 2020-11-13 Completed Unive rsity of PFIZER VACCINE 00:00:00 [facility] SARS-COV-2 COVID-19 2020-11-13 Completed Unive rsity of PFIZER VACCINE 00:00:00 [facility] SARS-COV-2 COVID-19 2020-11-13 Completed Unive rsity of PFIZER VACCINE 00:00:00 [facility] SARS-COV-2 COVID-19 2020-11-13 Completed Unive rsity of PFIZER VACCINE 00:00:00 [facility] SARS-COV-2 COVID-19 2020-11-13 Completed Unive rsity of PFIZER VACCINE 00:00:00 [facility] SARS-COV-2 COVID-19 2020-11-13 Completed Unive rsity of PFIZER VACCINE 00:00:00 [facility] SARS-COV-2 COVID-19 2020-11-13 Completed Unive rsity of PFIZER VACCINE 00:00:00 [facility] SARS-COV-2 COVID-19 2020-11-13 Completed Unive rsity of PFIZER VACCINE 00:00:00 [facility] SARS-COV-2 COVID-19 2020-11-13 Completed Unive rsity of PFIZER VACCINE 00:00:00 [facility] SARS-COV-2 COVID-19 2020-11-13 Completed Unive rsity of PFIZER VACCINE 00:00:00 [facility] SARS-COV-2 COVID-19 2020-11-13 Completed Unive rsity of PFIZER VACCINE 00:00:00 [facility] SARS-COV-2 COVID-19 2020-11-13 Completed Unive rsity of PFIZER VACCINE 00:00:00 [facility] SARS-COV-2 COVID-19 2020-11-13 Completed Unive rsity of PFIZER VACCINE 00:00:00 [facility] SARS-COV-2 COVID-19 2020-11-13 Completed Unive rsity of PFIZER VACCINE 00:00:00 [facility] SARS-COV-2 COVID-19 2020-11-13 Completed Unive rsity of PFIZER VACCINE 00:00:00 [facility] SARS-COV-2 COVID-19 2020-11-13 Completed Unive rsity of PFIZER VACCINE 00:00:00 [facility] SARS-COV-2 COVID-19 2020-11-13 Completed Unive rsity of PFIZER VACCINE 00:00:00 [facility] SARS-COV-2 COVID-19 2020-11-13 Completed Unive rsity of PFIZER VACCINE 00:00:00 [facility] SARS-COV-2 COVID-19 2020-11-13 Completed Unive rsity of PFIZER VACCINE 00:00:00 [facility] SARS-COV-2 COVID-19 2020-10-23 Completed Unive rsity of PFIZER VACCINE 00:00:00 [facility] SARS-COV-2 COVID-19 2020-10-23 Completed Unive rsity of PFIZER VACCINE 00:00:00 [facility] SARS-COV-2 COVID-19 2020-10-23 Completed Unive rsity of PFIZER VACCINE 00:00:00 [facility] SARS-COV-2 COVID-19 2020-10-23 Completed Unive rsity of PFIZER VACCINE 00:00:00 [facility] SARS-COV-2 COVID-19 2020-10-23 Completed Unive rsity of PFIZER VACCINE 00:00:00 [facility] SARS-COV-2 COVID-19 2020-10-23 Completed Unive rsity of PFIZER VACCINE 00:00:00 [facility] SARS-COV-2 COVID-19 2020-10-23 Completed Unive rsity of PFIZER VACCINE 00:00:00 [facility] SARS-COV-2 COVID-19 2020-10-23 Completed Unive rsity of PFIZER VACCINE 00:00:00 [facility] SARS-COV-2 COVID-19 2020-10-23 Completed Unive rsity of PFIZER VACCINE 00:00:00 [facility] SARS-COV-2 COVID-19 2020-10-23 Completed Unive rsity of PFIZER VACCINE 00:00:00 [facility] SARS-COV-2 COVID-19 2020-10-23 Completed Unive rsity of PFIZER VACCINE 00:00:00 [facility] SARS-COV-2 COVID-19 2020-10-23 Completed Unive rsity of PFIZER VACCINE 00:00:00 [facility] SARS-COV-2 COVID-19 2020-10-23 Completed Unive rsity of PFIZER VACCINE 00:00:00 [facility] SARS-COV-2 COVID-19 2020-10-23 Completed Unive rsity of PFIZER VACCINE 00:00:00 [facility] SARS-COV-2 COVID-19 2020-10-23 Completed Unive rsity of PFIZER VACCINE 00:00:00 [facility] SARS-COV-2 COVID-19 2020-10-23 Completed Unive rsity of PFIZER VACCINE 00:00:00 [facility] SARS-COV-2 COVID-19 2020-10-23 Completed Unive rsity of PFIZER VACCINE 00:00:00 [facility] SARS-COV-2 COVID-19 2020-10-23 Completed Unive rsity of PFIZER VACCINE 00:00:00 [facility] SARS-COV-2 COVID-19 2020-10-23 Completed Unive rsity of PFIZER VACCINE 00:00:00 [facility] SARS-COV-2 COVID-19 2020-10-23 Completed Unive rsity of PFIZER VACCINE 00:00:00 [facility] SARS-COV-2 COVID-19 2020-10-23 Completed Unive rsity of PFIZER VACCINE 00:00:00 [facility] SARS-COV-2 COVID-19 2020-10-23 Completed Unive rsity of PFIZER VACCINE 00:00:00 [facility] SARS-COV-2 COVID-19 2020-10-23 Completed Unive rsity of PFIZER VACCINE 00:00:00 [facility] SARS-COV-2 COVID-19 2020-10-23 Completed Unive rsity of PFIZER VACCINE 00:00:00 [facility] SARS-COV-2 COVID-19 2020-10-23 Completed Unive rsity of PFIZER VACCINE 00:00:00 [facility] SARS-COV-2 COVID-19 2020-10-23 Completed Unive rsity of PFIZER VACCINE 00:00:00 [facility] SARS-COV-2 COVID-19 2020-10-23 Completed Unive rsity of PFIZER VACCINE 00:00:00 [facility] SARS-COV-2 COVID-19 2020-10-23 Completed Unive rsity of PFIZER VACCINE 00:00:00 [facility] SARS-COV-2 COVID-19 2020-10-23 Completed Unive rsity of PFIZER VACCINE 00:00:00 [facility] SARS-COV-2 COVID-19 2020-10-23 Completed Unive rsity of PFIZER VACCINE 00:00:00 [facility] SARS-COV-2 COVID-19 2020-10-23 Completed Unive rsity of PFIZER VACCINE 00:00:00 [facility] SARS-COV-2 COVID-19 2020-10-23 Completed Unive rsity of PFIZER VACCINE 00:00:00 [facility] SARS-COV-2 COVID-19 2020-10-23 Completed Unive rsity of PFIZER VACCINE 00:00:00 [facility] SARS-COV-2 COVID-19 2020-10-23 Completed Unive rsity of PFIZER VACCINE 00:00:00 [facility] SARS-COV-2 COVID-19 2020-10-23 Completed Unive rsity of PFIZER VACCINE 00:00:00 [facility] SARS-COV-2 COVID-19 2020-10-23 Completed Unive rsity of PFIZER VACCINE 00:00:00 [facility] SARS-COV-2 COVID-19 2020-10-23 Completed Unive rsity of PFIZER VACCINE 00:00:00 [facility] SARS-COV-2 COVID-19 2020-10-23 Completed Unive rsity of PFIZER VACCINE 00:00:00 [facility] SARS-COV-2 COVID-19 2020-10-23 Completed Unive rsity of PFIZER VACCINE 00:00:00 [facility] SARS-COV-2 COVID-19 2020-10-23 Completed Unive rsity of PFIZER VACCINE 00:00:00 [facility] SARS-COV-2 COVID-19 2020-10-23 Completed Unive rsity of PFIZER VACCINE 00:00:00 [facility] SARS-COV-2 COVID-19 2020-10-23 Completed Unive rsity of PFIZER VACCINE 00:00:00 [facility] SARS-COV-2 COVID-19 2020-10-23 Completed Unive rsity of PFIZER VACCINE 00:00:00 [facility] SARS-COV-2 COVID-19 2020-10-23 Completed Unive rsity of PFIZER VACCINE 00:00:00 [facility] SARS-COV-2 COVID-19 2020-10-23 Completed Unive rsity of PFIZER VACCINE 00:00:00 [facility] SARS-COV-2 COVID-19 2020-10-23 Completed Unive rsity of PFIZER VACCINE 00:00:00 [facility] SARS-COV-2 COVID-19 2020-10-23 Completed Unive rsity of PFIZER VACCINE 00:00:00 [facility] SARS-COV-2 COVID-19 2020-10-23 Completed Unive rsity of PFIZER VACCINE 00:00:00 [facility] SARS-COV-2 COVID-19 2020-10-23 Completed Unive rsity of PFIZER VACCINE 00:00:00 [facility] SARS-COV-2 COVID-19 2020-10-23 Completed Unive rsity of PFIZER VACCINE 00:00:00 [facility] SARS-COV-2 COVID-19 2020-10-23 Completed Unive rsity of PFIZER VACCINE 00:00:00 [facility] [facility] SARS-COV-2 COVID-19 2020-10-23 Completed [facility] PFIZER VACCINE 00:00:00 [facility] SARS-COV-2 COVID-19 2020-10-23 Completed [facility] PFIZER VACCINE 00:00:00 [facility] SARS-COV-2 COVID-19 2020-10-23 Completed [facility] PFIZER VACCINE 00:00:00 [facility] SARS-COV-2 COVID-19 2020-10-23 Completed [facility] PFIZER VACCINE 00[facility]00:00 [facility] SARS-COV-2 COVID-19 2020-10-23 Completed [facility] PFIZER VACCINE 00:00:00 [facility] SARS-COV-2 COVID-19 2020-10-23 Completed [facility] PFIZER VACCINE 00:00:00 [facility] SARS-COV-2 COVID-19 2020-10-23 Completed [facility] PFIZER VACCINE 00:00:00 [facility] SARS-COV-2 COVID-19 2020-10-23 Completed [facility] PFIZER VACCINE 00:00:00 [facility] SARS-COV-2 COVID-19 2020-10-23 Completed [facility] PFIZER VACCINE 00:00:00 [facility] SARS-COV-2 COVID-19 2020-10-23 Completed [facility] PFIZER VACCINE 00:00:00 [facility] SARS-COV-2 COVID-19 2020-10-23 Completed [facility] PFIZER VACCINE 00:00:00 [facility] SARS-COV-2 COVID-19 2020-10-23 Completed [facility] PFIZER VACCINE 00:00:00 [facility] SARS-COV-2 COVID-19 2020-10-23 Completed [facility] PFIZER VACCINE 00:00:00 [facility] SARS-COV-2 COVID-19 2020-10-23 Completed [facility] PFIZER VACCINE 00:00:00 [facility] SARS-COV-2 COVID-19 2020-10-23 Completed [facility] PFIZER VACCINE 00:00:00 [facility] SARS-COV-2 COVID-19 2020-10-23 Completed [facility] PFIZER VACCINE 00:00:00 [facility] SARS-COV-2 COVID-19 2020-10-23 Completed [facility] PFIZER VACCINE 00:00:00 [facility] Influenza Virus 2016-11-18 Completed [facility] Vaccine Quad IM 3+ 00:00:00 [facility] Influenza Virus 2016-11-18 Completed [facility] Vaccine [facility] IM 3+ 00:00:00 [facility] Influenza Virus 2016-11-18 Completed [facility] Vaccine [facility] IM 3+ 00:00:00 [facility] Influenza Virus 2016-11-18 Completed [facility] Vaccine [facility] IM 3+ 00:00:00 [facility] Influenza Virus 2016-11-18 Completed [facility] Vaccine [facility] IM 3+ 00:00:00 [facility] Influenza Virus 2016-11-18 Completed [facility] Vaccine [facility] IM 3+ 00:00:00 [facility] Influenza Virus 2016-11-18 Completed [facility] Vaccine [facility] IM 3+ 00:00:00 [facility] Influenza Virus 2016-11-18 Completed [facility] Vaccine [facility] IM 3+ 00:00:00 [facility] Influenza Virus 2016-11-18 Completed [facility] Vaccine [facility] IM 3+ 00:00:00 [facility] Influenza Virus 2016-11-18 Completed [facility] Vaccine [facility] IM 3+ 00:00:00 [facility] Influenza Virus 2016-11-18 Completed [facility] Vaccine [facility] IM 3+ 00:00:00 [facility] Influenza Virus 2016-11-18 Completed [facility] Vaccine Quad IM 3+ 00:00:00 [facility] Influenza Virus 2016-11-18 Completed [facility] Vaccine [facility] IM 3+ 00:00:00 [facility] Influenza Virus 2016-11-18 Completed [facility] Vaccine [facility] IM 3+ 00:00:00 [facility] Influenza Virus 2016-11-18 Completed [facility] Vaccine [facility] IM 3+ 00:00:00 [facility] Influenza Virus 2016-11-18 Completed [facility] Vaccine [facility] IM 3+ 00:00:00 [facility] Influenza Virus 2016-11-18 Completed [facility] Vaccine [facility] IM 3+ 00:00:00 [facility] Influenza Virus 2016-11-18 Completed [facility] Vaccine [facility] IM 3+ 00:00:00 [facility] Influenza Virus 2016-11-18 Completed [facility] Vaccine [facility] IM 3+ 00:00:00 [facility] Influenza Virus 2016-11-18 Completed [facility] Vaccine [facility] IM 3+ 00:00:00 [facility] Influenza Virus 2016-11-18 Completed [facility] Vaccine [facility] IM 3+ 00:00:00 [facility] Influenza Virus 2016-11-18 Completed [facility] Vaccine [facility] IM 3+ 00:00:00 [facility] Influenza Virus 2016-11-18 Completed [facility] Vaccine [facility] IM 3+ 00:00:00 [facility] Influenza Virus 2016-11-18 Completed [facility] Vaccine [facility] IM 3+ 00:00:00 [facility] Influenza Virus 2016-11-18 Completed [facility] Vaccine [facility] IM 3+ 00:00:00 [facility] Influenza Virus 2016-11-18 Completed [facility] Vaccine [facility] IM 3+ 00:00:00 [facility] Influenza Virus 2016-11-18 Completed [facility] Vaccine [facility] IM 3+ 00:00:00 [facility] Influenza Virus 2016-11-18 Completed [facility] Vaccine [facility] IM 3+ 00:00:00 [facility] Influenza Virus 2016-11-18 Completed [facility] Vaccine [facility] IM 3+ 00:00:00 [facility] Influenza Virus 2016-11-18 Completed [facility] Vaccine [facility] IM 3+ 00:00:00 [facility] Influenza Virus 2016-11-18 Completed [facility] Vaccine [facility] IM 3+ 00:00:00 [facility] Influenza Virus 2016-11-18 Completed [facility] Vaccine [facility] IM 3+ 00:00:00 [facility] Influenza Virus 2016-11-18 Completed [facility] IM 3+ 00:00:00 [facility] Influenza Virus 2016-11-18 Completed [facility] Vaccine [facility] IM 3+ 00:00:00 [facility] Influenza Virus 2016-11-18 Completed [facility] Vaccine [facility] IM 3+ 00:00:00 [facility] Influenza Virus 2016-11-18 Completed [facility] Vaccine [facility] IM 3+ 00:00:00 [facility] Influenza Virus 2016-11-18 Completed [facility] Vaccine [facility] IM 3+ 00:00:00 [facility] Influenza Virus 2016-11-18 Completed [facility] Vaccine [facility] IM 3+ 00:00:00 [facility] Influenza Virus 2016-11-18 Completed [facility] Vaccine [facility] IM 3+ 00:00:00 [facility] Influenza Virus 2016-11-18 Completed [facility] Vaccine [facility] IM 3+ 00:00:00 [facility] Influenza Virus 2016-11-18 Completed [facility] Vaccine [facility] IM 3+ 00:00:00 [facility] Influenza Virus 2016-11-18 Completed [facility] Vaccine [facility] IM 3+ 00:00:00 [facility] Influenza Virus 2016-11-18 Completed [facility] Vaccine [facility] IM 3+ 00:00:00 [facility] Influenza Virus 2016-11-18 Completed [facility] Vaccine Quad IM 3+ 00:00:00 [facility] Influenza Virus 2016-11-18 Completed [facility] Vaccine Quad IM 3+ 00:00:00 [facility] Influenza Virus 2016-11-18 Completed [facility] Vaccine [facility] IM 3+ 00:00:00 [facility] Influenza Virus 2016-11-18 Completed [facility] Vaccine [facility] IM 3+ 00:00:00 [facility] Influenza Virus 2016-11-18 Completed [facility] Vaccine [facility] IM 3+ 00:00:00 [facility] Influenza Virus 2016-11-18 Completed [facility] Vaccine [facility] IM 3+ 00:00:00 [facility] Influenza Virus 2016-11-18 Completed [facility] Vaccine [facility] IM 3+ 00:00:00 [facility] Influenza Virus 2016-11-18 Completed [facility] Vaccine [facility] IM 3+ 00:00:00 [facility] Influenza Virus 2016-11-18 Completed [facility] Vaccine [facility] IM 3+ 00:00:00 [facility] Influenza Virus 2016-11-18 Completed [facility] Vaccine [facility] IM 3+ 00:00:00 [facility] Influenza Virus 2016-11-18 Completed [facility] Vaccine [facility] IM 3+ 00:00:00 [facility] Influenza Virus 2016-11-18 Completed [facility] Vaccine [facility] IM 3+ 00:00:00 [facility] Influenza Virus 2016-11-18 Completed [facility] Vaccine [facility] IM 3+ 00:00:00 [facility] Influenza Virus 2016-11-18 Completed [facility] Vaccine [facility] IM 3+ 00:00:00 [facility] Influenza Virus 2016-11-18 Completed [facility] Vaccine [facility] IM 3+ 00:00:00 [facility] Influenza Virus 2016-11-18 Completed [facility] Vaccine [facility] IM 3+ 00:00:00 [facility] Influenza Virus 2016-11-18 Completed [facility] Vaccine Quad IM 3+ 00:00:00 [facility] Influenza Virus 2016-11-18 Completed [facility] Vaccine Quad IM 3+ 00:00:00 [facility] Influenza Virus 2016-11-18 Completed [facility] Vaccine [facility] IM 3+ 00:00:00 [facility] Influenza Virus 2016-11-18 Completed [facility] Vaccine [facility] IM 3+ 00:00:00 [facility] Influenza Virus 2016-11-18 Completed [facility] Vaccine Quad IM 3+ 00:00:00 [facility] Influenza Virus 2016-11-18 Completed [facility] Vaccine Quad IM 3+ 00:00:00 [facility] Influenza Virus 2016-11-18 Completed [facility] Vaccine [facility] IM 3+ 00:00:00 [facility] Influenza Virus 2016-11-18 Completed [facility] Vaccine [facility] IM 3+ 00:00:00 [facility] Influenza Virus 2016-11-18 Completed [facility] Vaccine Quad IM 3+ 00:00: [facility] Influenza Virus 2016-11-18 Completed [facility] Vaccine Quad IM 3+ 00:00:00 [facility] Influenza Virus 2016-11-18 Completed [facility] Vaccine Quad IM 3+ 00:00:00 [facility] Influenza Virus 2016-11-18 Completed [facility] Vaccine Quad IM 3+ 00:00:00 [facility] Influenza Virus 2016-11-18 Completed [facility] Vaccine Quad IM 3+ 00:00:00 [facility] Influenza Virus 2016-11-18 Completed [facility] Vaccine Quad IM 3+ 00:00:00 [facility] Influenza Virus 2016-11-18 Completed [facility] Vaccine Quad IM 3+ 00:00:00 [facility] Influenza Virus 2016-11-18 Completed [facility] Vaccine Quad IM 3+ 00:00:00 [facility] Influenza Virus 2016-11-18 Completed [facility] Vaccine Quad IM 3+ 00:00:00 [facility] Influenza Virus 2016-11-18 Completed [facility] Vaccine Quad IM 3+ 00:00:00 [facility] Influenza Virus 2016-11-18 Completed [facility] Vaccine Quad IM 3+ 00:00:00 [facility] Influenza Virus 2016-11-18 Completed [facility] Vaccine Quad IM 3+ 00:00:00 [facility] Influenza Virus 2016-11-18 Completed [facility] Vaccine Quad IM 3+ 00:00:00 [facility] Influenza Virus 2016-11-18 Completed [facility] Vaccine Quad IM 3+ 00:00:00 [facility] Influenza Virus 2016-11-18 Completed [facility] Vaccine Quad IM 3+ 00:00:00 [facility] Influenza Virus 2016-11-18 Completed [facility] Vaccine Quad IM 3+ 00:00:00 [facility] HPV9 2016-04-06 Completed [facility] 00:00:00 [facility] HPV9 2016-04-06 Completed [facility] 00:00:00 [facility] HPV9 2016-04-06 Completed [facility] 00:00:00 [facility] HPV9 2016-04-06 Completed [facility] 00:00:00 [facility] HPV9 2016-04-06 Completed [facility] 00:00:00 [facility] HPV9 2016-04-06 Completed [facility] 00:00:00 [facility] HPV9 2016-04-06 Completed [facility] 00:00:00 [facility] HPV9 2016-04-06 Completed [facility] 00:00:00 [facility] HPV9 2016-04-06 Completed [facility] 00:00:00 [facility] HPV9 2016-04-06 Completed [facility] 00:00:00 [facility] HPV9 2016-04-06 Completed [facility] 00:00:00 [facility] HPV9 2016-04-06 Completed [facility] 00:00:00 [facility] HPV9 2016-04-06 Completed [facility] 00:00:00 [facility] HPV9 2016-04-06 Completed [facility] 00:00:00 [facility] HPV9 2016-04-06 Completed [facility] 00:00:00 [facility] HPV9 2016-04-06 Completed [facility] 00:00:00 [facility] HPV9 2016-04-06 Completed [facility] 00:00:00 [facility] HPV9 2016-04-06 Completed [facility] 00:00:00 [facility] HPV9 2016-04-06 Completed [facility] 00:00:00 [facility] HPV9 2016-04-06 Completed [facility] 00:00:00 [facility] HPV9 2016-04-06 Completed [facility] 00:00:00 [facility] HPV9 2016-04-06 Completed [facility] 00:00:00 [facility] HPV9 2016-04-06 Completed [facility] 00:00:00 [facility] HPV9 2016-04-06 Completed [facility] 00:00:00 [facility] HPV9 2016-04-06 Completed [facility] 00:00:00 [facility] HPV9 2016-04-06 Completed [facility] 00:00:00 [facility] HPV9 2016-04-06 Completed [facility] 00:00:00 [facility] HPV9 2016-04-06 Completed [facility] 00:00:00 [facility] HPV9 2016-04-06 Completed [facility] 00:00:00 [facility] HPV9 2016-04-06 Completed [facility] 00:00:00 [facility] HPV9 2016-04-06 Completed [facility] 00:00:00 [facility] HPV9 2016-04-06 Completed [facility] 00:00:00 [facility] HPV9 2016-04-06 Completed [facility] 00:00:00 [facility] HPV9 2016-04-06 Completed [facility] 00:00:00 [facility] HPV9 2016-04-06 Completed [facility] 00:00:00 [facility] HPV9 2016-04-06 Completed [facility] 00:00:00 [facility] HPV9 2016-04-06 Completed [facility] 00:00:00 [facility] HPV9 2016-04-06 Completed [facility] 00:00:00 [facility] HPV9 2016-04-06 Completed [facility] 00:00:00 [facility] HPV9 2016-04-06 Completed [facility] 00:00:00 [facility] HPV9 2016-04-06 Completed [facility] 00:00:00 [facility] HPV9 2016-04-06 Completed [facility] 00:00:00 [facility] HPV9 2016-04-06 Completed [facility] 00:00:00 [facility] HPV9 2016-04-06 Completed [facility] 00:00:00 [facility] HPV9 2016-04-06 Completed [facility] 00:00:00 [facility] HPV9 2016-04-06 Completed [facility] 00:00:00 [facility] HPV9 2016-04-06 Completed [facility] 00:00:00 [facility] HPV9 2016-04-06 Completed [facility] 00:00:00 [facility] HPV9 2016-04-06 Completed [facility] 00:00:00 [facility] HPV9 2016-04-06 Completed [facility] 00:00:00 [facility] HPV9 2016-04-06 Completed [facility] 00:00:00 [facility] HPV9 2016-04-06 Completed [facility] 00:00:00 [facility] HPV9 2016-04-06 Completed [facility] 00:00:00 [facility] HPV9 2016-04-06 Completed [facility] 00:00:00 [facility] HPV9 2016-04-06 Completed [facility] 00:00:00 [facility] HPV9 2016-04-06 Completed [facility] 00:00:00 [facility] HPV9 2016-04-06 Completed [facility] 00[facility]00:00 [facility] HPV9 2016-04-06 Completed [facility] 00:00:00 [facility] HPV9 2016-04-06 Completed [facility] 00:00:00 [facility] HPV9 2016-04-06 Completed [facility] 00:00:00 [facility] HPV9 2016-04-06 Completed [facility] 00:00:00 [facility] HPV9 2016-04-06 Completed [facility] 00:00:00 [facility] HPV9 2016-04-06 Completed [facility] 00:00:00 [facility] HPV9 2016-04-06 Completed [facility] 00:00:00 [facility] HPV9 2016-04-06 Completed [facility] 00:00:00 [facility] HPV9 2016-04-06 Completed [facility] 00:00:00 [facility] HPV9 2016-04-06 Completed [facility] 00:00:00 [facility] HPV9 2016-04-06 Completed [facility] 00:00:00 [facility] HPV9 2016-04-06 Completed [facility] 00:00:00 [facility] HPV9 2016-04-06 Completed [facility] 00:00:00 [facility] HPV9 2016-04-06 Completed [facility] 00:00:00 [facility] HPV9 2016-04-06 Completed [facility] 00:00:00 [facility] HPV9 2016-04-06 Completed [facility] 00:00:00 [facility] HPV9 2016-04-06 Completed [facility] 00:00:00 [facility] HPV9 2016-04-06 Completed [facility] 00:00:00 [facility] HPV9 2016-04-06 Completed [facility] 00:00:00 [facility] HPV9 2016-04-06 Completed [facility] 00:00:00 [facility] HPV9 2016-04-06 Completed [facility] 00:00:00 [facility] HPV9 2016-04-06 Completed [facility] 00:00:00 [facility] HPV9 2016-04-06 Completed [facility] 00:00:00 [facility] HPV9 2016-04-06 Completed [facility] 00:00:00 [facility] HPV9 2016-04-06 Completed [facility] 00:00:00 [facility] HPV9 2016-04-06 Completed [facility] 00:00:00 [facility] HPV9 2016-01-06 Completed [facility] 00:00:00 [facility] HPV9 2016-01-06 Completed [facility] 00:00:00 [facility] HPV9 2016-01-06 Completed [facility] 00:00:00 [facility] HPV9 2016-01-06 Completed [facility] 00:00:00 [facility] HPV9 2016-01-06 Completed [facility] 00:00:00 [facility] HPV9 2016-01-06 Completed [facility] 00:00:00 [facility] HPV9 2016-01-06 Completed [facility] 00:00:00 [facility] HPV9 2016-01-06 Completed [facility] 00:00:00 [facility] HPV9 2016-01-06 Completed [facility] 00:00:00 [facility] HPV9 2016-01-06 Completed [facility] 00:00:00 [facility] HPV9 2016-01-06 Completed [facility] 00:00:00 [facility] HPV9 2016-01-06 Completed [facility] 00:00:00 [facility] HPV9 2016-01-06 Completed [facility] 00:00:00 [facility] HPV9 2016-01-06 Completed [facility] 00:00:00 [facility] HPV9 2016-01-06 Completed [facility] 00:00:00 [facility] HPV9 2016-01-06 Completed [facility] 00:00:00 [facility] HPV9 2016-01-06 Completed [facility] 00:00:00 [facility] HPV9 2016-01-06 Completed [facility] 00:00:00 [facility] HPV9 2016-01-06 Completed [facility] 00:00:00 [facility] HPV9 2016-01-06 Completed [facility] 00:00:00 [facility] HPV9 2016-01-06 Completed [facility] 00:00:00 [facility] HPV9 2016-01-06 Completed [facility] 00:00:00 [facility] HPV9 2016-01-06 Completed [facility] 00:00:00 [facility] HPV9 2016-01-06 Completed [facility] 00:00:00 [facility] HPV9 2016-01-06 Completed [facility] 00:00:00 [facility] HPV9 2016-01-06 Completed [facility] 00:00:00 [facility] HPV9 2016-01-06 Completed [facility] 00:00:00 [facility] HPV9 2016-01-06 Completed [facility] 00:00:00 [facility] HPV9 2016-01-06 Completed [facility] 00:00:00 [facility] HPV9 2016-01-06 Completed [facility] 00:00:00 [facility] HPV9 2016-01-06 Completed [facility] 00:00:00 [facility] HPV9 2016-01-06 Completed [facility] 00:00:00 [facility] HPV9 2016-01-06 Completed [facility] 00:00:00 [facility] HPV9 2016-01-06 Completed [facility] 00:00:00 [facility] HPV9 2016-01-06 Completed [facility] 00:00:00 [facility] HPV9 2016-01-06 Completed [facility] 00:00:00 [facility] HPV9 2016-01-06 Completed [facility] 00:00:00 [facility] HPV9 2016-01-06 Completed [facility] 00:00:00 [facility] HPV9 2016-01-06 Completed [facility] 00:00:00 [facility] HPV9 2016-01-06 Completed [facility] 00:00:00 [facility] HPV9 2016-01-06 Completed [facility] 00:00:00 [facility] HPV9 2016-01-06 Completed [facility] 00:00:00 [facility] HPV9 2016-01-06 Completed [facility] 00:00:00 [facility] HPV9 2016-01-06 Completed [facility] 00:00:00 [facility] HPV9 2016-01-06 Completed [facility] 00:00:00 [facility] HPV9 2016-01-06 Completed [facility] 00:00:00 [facility] HPV9 2016-01-06 Completed [facility] 00:00:00 [facility] HPV9 2016-01-06 Completed [facility] 00:00:00 [facility] HPV9 2016-01-06 Completed [facility] 00:00:00 [facility] HPV9 2016-01-06 Completed [facility] 00[facility]00:00 [facility] HPV9 2016-01-06 Completed [facility] 00:00:00 [facility] HPV9 2016-01-06 Completed [facility] 00:00:00 [facility] HPV9 2016-01-06 Completed [facility] 00:00:00 [facility] HPV9 2016-01-06 Completed [facility] 00:00:00 [facility] HPV9 2016-01-06 Completed [facility] 00:00:00 [facility] HPV9 2016-01-06 Completed [facility] 00:00:00 [facility] HPV9 2016-01-06 Completed [facility] 00:00:00 [facility] HPV9 2016-01-06 Completed [facility] 00:00:00 [facility] HPV9 2016-01-06 Completed [facility] 00:00:00 [facility] HPV9 2016-01-06 Completed [facility] 00:00:00 [facility] HPV9 2016-01-06 Completed [facility] 00:00:00 [facility] HPV9 2016-01-06 Completed [facility] 00:00:00 [facility] HPV9 2016-01-06 Completed [facility] 00:00:00 [facility] HPV9 2016-01-06 Completed [facility] 00:00:00 [facility] HPV9 2016-01-06 Completed [facility] 00:00:00 [facility] HPV9 2016-01-06 Completed [facility] 00:00:00 [facility] HPV9 2016-01-06 Completed [facility] 00:00:00 [facility] HPV9 2016-01-06 Completed [facility] 00:00:00 [facility] HPV9 2016-01-06 Completed [facility] 00:00:00 [facility] HPV9 2016-01-06 Completed [facility] 00:00:00 [facility] HPV9 2016-01-06 Completed [facility] 00:00:00 [facility] HPV9 2016-01-06 Completed [facility] 00:00:00 [facility] HPV9 2016-01-06 Completed [facility] 00:00:00 [facility] HPV9 2016-01-06 Completed [facility] 00:00:00 [facility] HPV9 2016-01-06 Completed [facility] 00:[facility]:00 [facility] [facility] HPV9 2016-01-06 Completed [facility] 00:00:00 [facility] HPV9 2016-01-06 Completed [facility] 00:00:00 [facility] HPV9 2016-01-06 Completed [facility] 00:00:00 [facility] HPV9 2016-01-06 Completed [facility] 00:00:00 [facility] HPV9 2016-01-06 Completed [facility] 00:00:00 [facility] HPV9 2016-01-06 Completed [facility] 00:00:00 [facility] HPV9 2016-01-06 Completed [facility] 00:00:00 [facility] HPV9 2016-01-06 Completed [facility] 00:00:00 [facility] HPV9 2015-10-03 Completed [facility] 00:00:00 [facility] HPV9 2015-10-03 Completed [facility] 00:00:00 [facility] HPV9 2015-10-03 Completed [facility] 00:00:00 [facility] HPV9 2015-10-03 Completed [facility] 00:00:00 [facility] HPV9 2015-10-03 Completed [facility] 00:00:00 [facility] HPV9 2015-10-03 Completed [facility] 00:00:00 [facility] HPV9 2015-10-03 Completed [facility] 00:00:00 [facility] HPV9 2015-10-03 Completed [facility] 00:00:00 [facility] HPV9 2015-10-03 Completed [facility] 00:00:00 [facility] HPV9 2015-10-03 Completed [facility] 00:00:00 [facility] HPV9 2015-10-03 Completed [facility] 00:00:00 [facility] HPV9 2015-10-03 Completed [facility] 00:00:00 [facility] HPV9 2015-10-03 Completed [facility] 00:00:00 [facility] HPV9 2015-10-03 Completed [facility] 00:00:00 [facility] HPV9 2015-10-03 Completed [facility] 00:00:00 [facility] HPV9 2015-10-03 Completed [facility] 00:00:00 [facility] HPV9 2015-10-03 Completed [facility] 00:00:00 [facility] HPV9 2015-10-03 Completed [facility] 00:00:00 [facility] HPV9 2015-10-03 Completed [facility] 00:00:00 [facility] HPV9 2015-10-03 Completed [facility] 00:00:00 [facility] HPV9 2015-10-03 Completed [facility] 00:00:00 [facility] HPV9 2015-10-03 Completed [facility] 00:00:00 [facility] HPV9 2015-10-03 Completed [facility] 00:00:00 [facility] HPV9 2015-10-03 Completed [facility] 00:00:00 [facility] HPV9 2015-10-03 Completed [facility] 00:00:00 [facility] HPV9 2015-10-03 Completed [facility] 00:00:00 [facility] HPV9 2015-10-03 Completed [facility] 00:00:00 [facility] HPV9 2015-10-03 Completed [facility] 00:00:00 [facility] HPV9 2015-10-03 Completed [facility] 00:00:00 [facility] HPV9 2015-10-03 Completed [facility] 00:00:00 [facility] HPV9 2015-10-03 Completed [facility] 00:00:00 [facility] HPV9 2015-10-03 Completed [facility] 00:00:00 [facility] HPV9 2015-10-03 Completed [facility] 00:00:00 [facility] HPV9 2015-10-03 Completed [facility] 00:00:00 [facility] HPV9 2015-10-03 Completed [facility] 00:00:00 [facility] HPV9 2015-10-03 Completed [facility] 00:00:00 [facility] HPV9 2015-10-03 Completed [facility] 00:00:00 [facility] HPV9 2015-10-03 Completed [facility] 00:00:00 [facility] HPV9 2015-10-03 Completed [facility] 00:00:00 [facility] HPV9 2015-10-03 Completed [facility] 00:00:00 [facility] HPV9 2015-10-03 Completed [facility] 00:00:00 [facility] HPV9 2015-10-03 Completed [facility] 00:00:00 [facility] HPV9 2015-10-03 Completed [facility] 00:00:00 [facility] HPV9 2015-10-03 Completed [facility] 00:00:00 [facility] HPV9 2015-10-03 Completed [facility] 00:00:00 [facility] HPV9 2015-10-03 Completed [facility] 00:00:00 [facility] HPV9 2015-10-03 Completed [facility] 00:00:00 [facility] HPV9 2015-10-03 Completed [facility] 00:00:00 [facility] HPV9 2015-10-03 Completed [facility] 00:00:00 [facility] HPV9 2015-10-03 Completed [facility] 00:00:00 [facility] HPV9 2015-10-03 Completed [facility] 00:00:00 [facility] HPV9 2015-10-03 Completed [facility] 00:00:00 [facility] HPV9 2015-10-03 Completed [facility] 00:00:00 [facility] HPV9 2015-10-03 Completed [facility] 00:00:00 [facility] HPV9 2015-10-03 Completed [facility] 00:00:00 [facility] HPV9 2015-10-03 Completed [facility] 00:00:00 [facility] HPV9 2015-10-03 Completed [facility] 00:00:00 [facility] HPV9 2015-10-03 Completed [facility] 00:00:00 [facility] HPV9 2015-10-03 Completed [facility] 00:00:00 [facility] HPV9 2015-10-03 Completed [facility] 00:00:00 [facility] HPV9 2015-10-03 Completed [facility] 00:00:00 [facility] HPV9 2015-10-03 Completed [facility] 00:00:00 [facility] HPV9 2015-10-03 Completed [facility] 00:00:00 [facility] HPV9 2015-10-03 Completed [facility] 00:00:00 [facility] HPV9 2015-10-03 Completed [facility] 00:00:00 [facility] HPV9 2015-10-03 Completed [facility] 00:00:00 [facility] HPV9 2015-10-03 Completed [facility] 00:00:00 [facility] HPV9 2015-10-03 Completed [facility] 00:00:00 [facility] HPV9 2015-10-03 Completed [facility] 00:00:00 [facility] HPV9 2015-10-03 Completed [facility] 00:00:00 [facility] HPV9 2015-10-03 Completed [facility] 00:00:00 [facility] HPV9 2015-10-03 Completed [facility] 00:00:00 [facility] HPV9 2015-10-03 Completed [facility] 00:00:00 [facility] HPV9 2015-10-03 Completed [facility] 00:00:00 [facility] HPV9 2015-10-03 Completed [facility] 00:00:00 [facility] HPV9 2015-10-03 Completed [facility] 00:00:00 [facility] HPV9 2015-10-03 Completed [facility] 00:00:00 [facility] HPV9 2015-10-03 Completed [facility] 00:00:00 [facility] HPV9 2015-10-03 Completed [facility] 00:00:00 [facility] HPV9 2015-10-03 Completed [facility] 00:00:00 [facility] HPV9 2015-10-03 Completed [facility] 00:00:00 [facility] HPV9 2015-10-03 Completed [facility] 00:00:00 [facility] HPV9 2015-10-03 Completed [facility] 00:00:00 [facility] MMR 2014-06-28 Completed [facility] 00:00:00 [...] Branch MMR 2014-06-28 Completed [facility] 00:00:00 [facility] MMR 2014-06-28 Completed [facility] 00:00:00 [facility] MMR 2014-06-28 Completed [facility] 00:00:00 [facility] MMR 2014-06-28 Completed [facility] 00:00:00 [facility] MMR 2014-06-28 Completed [facility] 00:00:00 [facility] MMR 2014-06-28 Completed [facility] 00:00:00 [facility] MMR 2014-06-28 Completed [facility] 00:00:00 [facility] MMR 2014-06-28 Completed [facility] 00:00:00 [facility] MMR 2014-06-28 Completed [facility] 00:00:00 [facility] HPV 2014-04-10 Completed [facility] 00:00:00 [facility] Meningococcal 2014-04-10 Completed [facility] Polysaccharide 00:00:00 [facility] (groups A, C, Y and Branc h W-135) conjugate vaccine (MCV4P) HPV 2014-04-10 Completed [facility] 00:00:00 [facility] Meningococcal 2014-04-10 Completed [facility] Polysaccharide 00:00:00 [place] [facility] (groups A, C, Y and Branc h W-135) conjugate vaccine (MCV4P) HPV 2014-04-10 Completed [facility] 00:00:00 [facility] Meningococcal 2014-04-10 Completed [facility] Polysaccharide 00:00:00 [place] [facility] (groups A, C, Y and Branc h W-135) conjugate vaccine (MCV4P) HPV 2014-04-10 Completed [facility] 00:00:00 [facility] Meningococcal 2014-04-10 Completed [facility] Polysaccharide 00:00:00 [place] [facility] (groups A, C, Y and Branc h W-135) conjugate vaccine (MCV4P) HPV 2014-04-10 Completed [facility] 00:00:00 [facility] Meningococcal 2014-04-10 Completed [facility] Polysaccharide 00:00:00 [place] [facility] (groups A, C, Y and Branc h W-135) conjugate vaccine (MCV4P) HPV 2014-04-10 Completed [facility] 00:00:00 [facility] Meningococcal 2014-04-10 Completed [facility] Polysaccharide 00:00:00 [place] [facility] (groups A, C, Y and Branc h W-135) conjugate vaccine (MCV4P) HPV 2014-04-10 Completed [facility] 00:00:00 [facility] Meningococcal 2014-04-10 Completed [facility] Polysaccharide 00:00:00 [place] [facility] (groups A, C, Y and Branc h W-135) conjugate vaccine (MCV4P) HPV 2014-04-10 Completed [facility] 00:00:00 [facility] Meningococcal 2014-04-10 Completed [facility] Polysaccharide 00:00:00 [place] [facility] (groups A, C, Y and Branc h W-135) conjugate vaccine (MCV4P) HPV 2014-04-10 Completed [facility] 00:00:00 [facility] Meningococcal 2014-04-10 Completed [facility] Polysaccharide 00:00:00 [place] [facility] (groups A, C, Y and Branc h W-135) conjugate vaccine (MCV4P) HPV 2014-04-10 Completed [facility] 00:00:00 [facility] Meningococcal 2014-04-10 Completed [facility] Polysaccharide 00:00:00 [place] [facility] (groups A, C, Y and Branc h W-135) conjugate vaccine (MCV4P) HPV 2014-04-10 Completed [facility] 00:00:00 [facility] Meningococcal 2014-04-10 Completed [facility] Polysaccharide 00:00:00 [place] [facility] (groups A, C, Y and Branc h W-135) conjugate vaccine (MCV4P) HPV 2014-04-10 Completed [facility] 00:00:00 [facility] Meningococcal 2014-04-10 Completed [facility] Polysaccharide 00:00:00 [place] [facility] (groups A, C, Y and Branc h W-135) conjugate vaccine (MCV4P) HPV 2014-04-10 Completed [facility] 00:00:00 [facility] Meningococcal 2014-04-10 Completed [facility] Polysaccharide 00:00:00 [place] [facility] (groups A, C, Y and Branc h W-135) conjugate vaccine (MCV4P) HPV 2014-04-10 Completed [facility] 00:00:00 [facility] Meningococcal 2014-04-10 Completed [facility] Polysaccharide 00:00:00 [place] [facility] (groups A, C, Y and Branc h W-135) conjugate vaccine (MCV4P) HPV 2014-04-10 Completed [facility] 00:00:00 [facility] Meningococcal 2014-04-10 Completed [facility] Polysaccharide 00:00:00 [place] [facility] (groups A, C, Y and Branc h W-135) conjugate vaccine (MCV4P) HPV 2014-04-10 Completed [facility] 00:00:00 [facility] Meningococcal 2014-04-10 Completed [facility] Polysaccharide 00:00:00 [place] [facility] (groups A, C, Y and Branc h W-135) conjugate vaccine (MCV4P) HPV 2014-04-10 Completed [facility] 00:00:00 [facility] Meningococcal 2014-04-10 Completed [facility] Polysaccharide 00:00:00 [place] [facility] (groups A, C, Y and Branc h W-135) conjugate vaccine (MCV4P) HPV 2014-04-10 Completed [facility] 00:00:00 [facility] Meningococcal 2014-04-10 Completed [facility] Polysaccharide 00:00:00 [place] [facility] (groups A, C, Y and Branc h W-135) conjugate vaccine (MCV4P) HPV 2014-04-10 Completed [facility] 00:00:00 [facility] Meningococcal 2014-04-10 Completed [facility] Polysaccharide 00:00:00 [place] [facility] (groups A, C, Y and Branc h W-135) conjugate vaccine (MCV4P) HPV 2014-04-10 Completed [facility] 00:00:00 [facility] Meningococcal 2014-04-10 Completed [facility] Polysaccharide 00:00:00 [place] [facility] (groups A, C, Y and Branc h W-135) conjugate vaccine (MCV4P) HPV 2014-04-10 Completed [facility] 00:00:00 [facility] Meningococcal 2014-04-10 Completed [facility] Polysaccharide 00:00:00 [place] [facility] (groups A, C, Y and Branc h W-135) conjugate vaccine (MCV4P) HPV 2014-04-10 Completed [facility] 00:00:00 [facility] Meningococcal 2014-04-10 Completed [facility] Polysaccharide 00:00:00 [place] [facility] (groups A, C, Y and Branc h W-135) conjugate vaccine (MCV4P) HPV 2014-04-10 Completed [facility] 00:00:00 [facility] Meningococcal 2014-04-10 Completed [facility] Polysaccharide 00:00:00 [place] [facility] (groups A, C, Y and Branc h W-135) conjugate vaccine (MCV4P) HPV 2014-04-10 Completed [facility] 00:00:00 [facility] Meningococcal 2014-04-10 Completed [facility] Polysaccharide 00:00:00 [place] [facility] (groups A, C, Y and Branc h W-135) conjugate vaccine (MCV4P) HPV 2014-04-10 Completed [facility] 00:00:00 [facility] Meningococcal 2014-04-10 Completed [facility] Polysaccharide 00:00:00 [place] [facility] (groups A, C, Y and Branc h W-135) conjugate vaccine (MCV4P) HPV 2014-04-10 Completed [facility] 00:00:00 [facility] Meningococcal 2014-04-10 Completed [facility] Polysaccharide 00:00:00 [place] [facility] (groups A, C, Y and Branc h W-135) conjugate vaccine (MCV4P) HPV 2014-04-10 Completed [facility] 00:00:00 [facility] Meningococcal 2014-04-10 Completed [facility] Polysaccharide 00:00:00 [place] [facility] (groups A, C, Y and Branc h W-135) conjugate vaccine (MCV4P) HPV 2014-04-10 Completed [facility] 00:00:00 [facility] Meningococcal 2014-04-10 Completed [facility] Polysaccharide 00:00:00 [place] [facility] (groups A, C, Y and Branc h W-135) conjugate vaccine (MCV4P) HPV 2014-04-10 Completed [facility] 00:00:00 [facility] Meningococcal 2014-04-10 Completed [facility] Polysaccharide 00:00:00 [place] [facility] (groups A, C, Y and Branc h W-135) conjugate vaccine (MCV4P) HPV 2014-04-10 Completed [facility] 00:00:00 [facility] Meningococcal 2014-04-10 Completed [facility] Polysaccharide 00:00:00 [place] [facility] (groups A, C, Y and Branc h W-135) conjugate vaccine (MCV4P) HPV 2014-04-10 Completed [facility] 00:00:00 [facility] Meningococcal 2014-04-10 Completed [facility] Polysaccharide 00:00:00 [place] [facility] (groups A, C, Y and Branc h W-135) conjugate vaccine (MCV4P) HPV 2014-04-10 Completed [facility] 00:00:00 [facility] Meningococcal 2014-04-10 Completed [facility] Polysaccharide 00:00:00 [place] [facility] (groups A, C, Y and Branc h W-135) conjugate vaccine (MCV4P) HPV 2014-04-10 Completed [facility] 00:00:00 [facility] Meningococcal 2014-04-10 Completed [facility] Polysaccharide 00:00:00 [place] [facility] (groups A, C, Y and Branc h W-135) conjugate vaccine (MCV4P) HPV 2014-04-10 Completed [facility] 00:00:00 [facility] Meningococcal 2014-04-10 Completed [facility] Polysaccharide 00:00:00 [place] [facility] (groups A, C, Y and Branc h W-135) conjugate vaccine (MCV4P) HPV 2014-04-10 Completed [facility] 00:00:00 [facility] Meningococcal 2014-04-10 Completed [facility] Polysaccharide 00:00:00 [place] [facility] (groups A, C, Y and Branc h W-135) conjugate vaccine (MCV4P) HPV 2014-04-10 Completed [facility] 00:00:00 [facility] Meningococcal 2014-04-10 Completed [facility] Polysaccharide 00:00:00 [place] [facility] (groups A, C, Y and Branc h W-135) conjugate vaccine (MCV4P) HPV 2014-04-10 Completed [facility] 00:00:00 [facility] Meningococcal 2014-04-10 Completed [facility] Polysaccharide 00:00:00 [place] [facility] (groups A, C, Y and Branc h W-135) conjugate vaccine (MCV4P) TDAP 2014-03-18 Completed [facility] 00:00:00 [facility] TDAP 2014-03-18 Completed [facility] 00:00:00 [facility] TDAP 2014-03-18 Completed [facility] 00:00:00 [facility] TDAP 2014-03-18 Completed [facility] 00:00:00 [facility] TDAP 2014-03-18 Completed [facility] 00:00:00 [facility] TDAP 2014-03-18 Completed [facility] 00:00:00 [facility] TDAP 2014-03-18 Completed [facility] 00:00:00 [facility] TDAP 2014-03-18 Completed [facility] 00:00:00 [facility] TDAP 2014-03-18 Completed [facility] 00:00:00 [facility] TDAP 2014-03-18 Completed [facility] 00:00:00 [facility] TDAP 2014-03-18 Completed [facility] 00:00:00 [facility] TDAP 2014-03-18 Completed [facility] 00:00:00 [facility] TDAP 2014-03-18 Completed [facility] 00:00:00 [facility] TDAP 2014-03-18 Completed [facility] 00:00:00 [facility] TDAP 2014-03-18 Completed [facility] 00:00:00 [facility] TDAP 2014-03-18 Completed [facility] 00:00:00 [facility] TDAP 2014-03-18 Completed [facility] 00:00:00 [facility] TDAP 2014-03-18 Completed [facility] 00:00:00 [facility] TDAP 2014-03-18 Completed [facility] 00:00:00 [facility] TDAP 2014-03-18 Completed [facility] 00:00:00 [facility] TDAP 2014-03-18 Completed [facility] 00:00:00 [facility] TDAP 2014-03-18 Completed [facility] 00:00:00 [facility] TDAP 2014-03-18 Completed [facility] 00:00:00 [facility] TDAP 2014-03-18 Completed [facility] 00:00:00 [facility] TDAP 2014-03-18 Completed [facility] 00:00:00 [facility] TDAP 2014-03-18 Completed [facility] 00:00:00 [facility] TDAP 2014-03-18 Completed [facility] 00:00:00 [facility] TDAP 2014-03-18 Completed [facility] 00:00:00 [facility] TDAP 2014-03-18 Completed [facility] 00:00:00 [facility] TDAP 2014-03-18 Completed [facility] 00:00:00 [facility] TDAP 2014-03-18 Completed [facility] 00:00:00 [facility] TDAP 2014-03-18 Completed [facility] 00:00:00 [facility] TDAP 2014-03-18 Completed [facility] 00:00:00 [facility] TDAP 2014-03-18 Completed [facility] 00:00:00 [facility] TDAP 2014-03-18 Completed [facility] 00:00:00 [facility] TDAP 2014-03-18 Completed [facility] 00:00:00 [facility] TDAP 2014-03-18 Completed [facility] 00:00:00 [facility] TDAP 2014-03-18 Completed [facility] 00:00:00 [facility] TDAP 2014-03-18 Completed [facility] 00:00:00 [facility] TDAP 2014-03-18 Completed [facility] 00:00:00 [facility] TDAP 2014-03-18 Completed [facility] 00:00:00 [facility] TDAP 2014-03-18 Completed [facility] 00:00:00 [facility] TDAP 2014-03-18 Completed [facility] 00:00:00 [facility] TDAP 2014-03-18 Completed [facility] 00:00:00 [facility] TDAP 2014-03-18 Completed [facility] 00:00:00 [facility] TDAP 2014-03-18 Completed [facility] 00:00:00 [facility] TDAP 2014-03-18 Completed [facility] 00:00:00 [facility] TDAP 2014-03-18 Completed [facility] 00:00:00 [facility] TDAP 2014-03-18 Completed [facility] 00:00:00 [facility] TDAP 2014-03-18 Completed [facility] 00:00:00 [facility] TDAP 2014-03-18 Completed [facility] 00:00:00 [facility] TDAP 2014-03-18 Completed [facility] 00:00:00 [facility] TDAP 2014-03-18 Completed [facility] 00:00:00 [facility] TDAP 2014-03-18 Completed [facility] 00:00:00 [facility] TDAP 2014-03-18 Completed [facility] 00:00:00 [facility] TDAP 2014-03-18 Completed [facility] 00:00:00 [facility] TDAP 2014-03-18 Completed [facility] 00:00:00 [facility] TDAP 2014-03-18 Completed [facility] 00:00:00 [facility] TDAP 2014-03-18 Completed [facility] 00:00:00 [facility] TDAP 2014-03-18 Completed [facility] 00:00:00 [facility] TDAP 2014-03-18 Completed [facility] 00:00:00 [facility] TDAP 2014-03-18 Completed [facility] 00:00:00 [facility] TDAP 2014-03-18 Completed [facility] 00:00:00 [facility] TDAP 2014-03-18 Completed [facility] 00:00:00 [facility] TDAP 2014-03-18 Completed [facility] 00:00:00 [facility] TDAP 2014-03-18 Completed [facility] 00:00:00 [facility] TDAP 2014-03-18 Completed [facility] 00:00:00 [facility] TDAP 2014-03-18 Completed [facility] 00:00:00 [facility] TDAP 2014-03-18 Completed [facility] 00:00:00 [facility] TDAP 2014-03-18 Completed [facility] 00:00:00 [facility] TDAP 2014-03-18 Completed [facility] 00:00:00 [facility] TDAP 2014-03-18 Completed [facility] 00:00:00 [facility] TDAP 2014-03-18 Completed [facility] 00:00:00 [facility] TDAP 2014-03-18 Completed [facility] 00:00:00 [facility] TDAP 2014-03-18 Completed [facility] 00:00:00 [facility] TDAP 2014-03-18 Completed [facility] 00:00:00 [facility] TDAP 2014-03-18 Completed [facility] 00:00:00 [facility] TDAP 2014-03-18 Completed [facility] 00:00:00 [facility] TDAP 2014-03-18 Completed [facility] 00:00:00 [facility] TDAP 2014-03-18 Completed [facility] 00:00:00 [facility] TDAP 2014-03-18 Completed [facility] 00:00:00 [facility] TDAP 2014-03-18 Completed [facility] 00:00:00 [facility] TDAP 2014-03-18 Completed [facility] 00:00:00 [facility] Influenza Virus 2012-12-21 Completed Universit y of Vaccine - Whole 00:00:00 [facility] HPV 2012-12-21 Completed [facility] 00:00:00 [facility] Influenza Virus 2012-12-21 Completed Univers[facility] y of Vaccine - Whole 00:00:00 [facility] HPV 2012-12-21 Completed [facility] 00:00:00 [facility] Influenza Virus 2012-12-21 Completed Univers[facility] y of Vaccine - Whole 00:00:00 [facility] HPV 2012-12-21 Completed [facility] 00:00:00 [facility] Influenza Virus 2012-12-21 Completed Universit y of Vaccine - Whole 00:00:00 [facility] HPV 2012-12-21 Completed [facility] 00:00:00 [facility] Influenza Virus 2012-12-21 Completed Universit y of Vaccine - Whole 00:00:00 [facility] HPV 2012-12-21 Completed [facility] 00:00:00 [facility] Influenza Virus 2012-12-21 Completed [facility] Vaccine - Whole 00:00:00 [facility] HPV 2012-12-21 Completed [facility] 00:00:00 [facility] Influenza Virus 2012-12-21 Completed [facility] Vaccine - Whole 00:00:00 [facility] HPV 2012-12-21 Completed [facility] 00:00:00 [facility] Influenza Virus 2012-12-21 Completed [facility] Vaccine - Whole 00:00:00 [facility] HPV 2012-12-21 Completed [facility] 00:00:00 [facility] Influenza Virus 2012-12-21 Completed [facility] Vaccine - Whole 00:00:00 [facility] HPV 2012-12-21 Completed [facility] 00:00:00 [facility] Influenza Virus 2012-12-21 Completed [facility] Vaccine - Whole 00:00:00 [facility] HPV 2012-12-21 Completed [facility] 00:00:00 [facility] Influenza Virus 2012-12-21 Completed [facility] Vaccine - Whole 00:00:00 [facility] HPV 2012-12-21 Completed [facility] 00:00:00 [facility] Influenza Virus 2012-12-21 Completed [facility] Vaccine - Whole 00:00:00 [facility] HPV 2012-12-21 Completed [facility] 00:00:00 [facility] Influenza Virus 2012-12-21 Completed [facility] Vaccine - Whole 00:00:00 [facility] HPV 2012-12-21 Completed [facility] 00:00:00 [facility] Influenza Virus 2012-12-21 Completed [facility] Vaccine - Whole 00:00:00 [facility] HPV 2012-12-21 Completed [facility] 00:00:00 [facility] Influenza Virus 2012-12-21 Completed [facility] Vaccine - Whole 00:00:00 [facility] HPV 2012-12-21 Completed [facility] 00:00:00 [facility] Influenza Virus 2012-12-21 Completed [facility] Vaccine - Whole 00:00:00 [facility] HPV 2012-12-21 Completed [facility] 00:00:00 [facility] Influenza Virus 2012-12-21 Completed [facility] Vaccine - Whole 00:00:00 [facility] HPV 2012-12-21 Completed [facility] 00:00:00 [facility] Influenza Virus 2012-12-21 Completed [facility] Vaccine - Whole 00:00:00 [facility] HPV 2012-12-21 Completed [facility] 00:00:00 [facility] Influenza Virus 2012-12-21 Completed [facility] Vaccine - Whole 00:00:00 [facility] HPV 2012-12-21 Completed [facility] 00:00:00 [facility] Influenza Virus 2012-12-21 Completed [facility] Vaccine - Whole 00:00:00 [facility] HPV 2012-12-21 Completed [facility] 00:00:00 [facility] Influenza Virus 2012-12-21 Completed [facility] Vaccine - Whole 00:00:00 [facility] HPV 2012-12-21 Completed [facility] 00:00:00 [facility] Influenza Virus 2012-12-21 Completed [facility] Vaccine - Whole 00:00:00 [facility] HPV 2012-12-21 Completed [facility] 00:00:00 [facility] Influenza Virus 2012-12-21 Completed [facility] Vaccine - Whole 00:00:00 [facility] HPV 2012-12-21 Completed [facility] 00:00:00 [facility] Influenza Virus 2012-12-21 Completed [facility] Vaccine - Whole 00:00:00 [facility] HPV 2012-12-21 Completed [facility] 00:00:00 [facility] Influenza Virus 2012-12-21 Completed [facility] Vaccine - Whole 00:00:00 [facility] HPV 2012-12-21 Completed [facility] 00:00:00 [facility] Influenza Virus 2012-12-21 Completed [facility] Vaccine - Whole 00:00:00 [facility] HPV 2012-12-21 Completed [facility] 00:00:00 [facility] Influenza Virus 2012-12-21 Completed [facility] Vaccine - Whole 00:00:00 [facility] HPV 2012-12-21 Completed [facility] 00:00:00 [facility] Influenza Virus 2012-12-21 Completed [facility] Vaccine - Whole 00:00:00 [facility] HPV 2012-12-21 Completed [facility] 00:00:00 [facility] Influenza Virus 2012-12-21 Completed [facility] Vaccine - Whole 00:00:00 [facility] HPV 2012-12-21 Completed [facility] 00:00:00 [facility] Influenza Virus 2012-12-21 Completed [facility] Vaccine - Whole 00:00:00 [facility] HPV 2012-12-21 Completed [facility] 00:00:00 [facility] Influenza Virus 2012-12-21 Completed [facility] Vaccine - Whole 00:00:00 [facility] HPV 2012-12-21 Completed [facility] 00:00:00 [facility] Influenza Virus 2012-12-21 Completed [facility] Vaccine - Whole 00:00:00 [facility] HPV 2012-12-21 Completed [facility] 00:00:00 [facility] Influenza Virus 2012-12-21 Completed [facility] Vaccine - Whole 00:00:00 [facility] HPV 2012-12-21 Completed [facility] 00:00:00 [facility] Influenza Virus 2012-12-21 Completed [facility] Vaccine - Whole 00:00:00 [facility] HPV 2012-12-21 Completed [facility] 00:00:00 [facility] Influenza Virus 2012-12-21 Completed [facility] Vaccine - Whole 00:00:00 [facility] HPV 2012-12-21 Completed [facility] 00:00:00 [facility] Influenza Virus 2012-12-21 Completed [facility] Vaccine - Whole 00:00:00 [facility] HPV 2012-12-21 Completed [facility] 00:00:00 [facility] Influenza Virus 2012-12-21 Completed [facility] Vaccine - Whole 00:00:00 [facility] HPV 2012-12-21 Completed [facility] of 00:00:00 [facility] TDAP 2009-07-22 Completed [facility] of 00:00:00 [facility] HEPATITIS A 2009-07-22 Completed [facility] 00:00:00 [facility] Meningococcal 2009-07-22 Completed [facility] Polysaccharide 00:00:00 [place] [facility] (groups A, C, Y and Branc h W-135) conjugate vaccine (MCV4P) TDAP 2009-07-22 Completed [facility] 00:00:00 [facility] HEPATITIS A 2009-07-22 Completed [facility] 00:00:00 [facility] Meningococcal 2009-07-22 Completed [facility] Polysaccharide 00:00:00 [place] [facility] (groups A, C, Y and Branc h W-135) conjugate vaccine (MCV4P) TDAP 2009-07-22 Completed [facility] 00:00:00 [facility] HEPATITIS A 2009-07-22 Completed [facility] 00:00:00 [facility] Meningococcal 2009-07-22 Completed [facility] Polysaccharide 00:00:00 [place] [facility] (groups A, C, Y and Branc h W-135) conjugate vaccine (MCV4P) TDAP 2009-07-22 Completed [facility] 00:00:00 [facility] HEPATITIS A 2009-07-22 Completed [facility] 00:00:00 [facility] Meningococcal 2009-07-22 Completed [facility] Polysaccharide 00:00:00 [place] [facility] (groups A, C, Y and Branc h W-135) conjugate vaccine (MCV4P) TDAP 2009-07-22 Completed [facility] 00:00:00 [facility] HEPATITIS A 2009-07-22 Completed [facility] 00:00:00 [facility] Meningococcal 2009-07-22 Completed [facility] Polysaccharide 00:00:00 [place] [facility] (groups A, C, Y and Branc h W-135) conjugate vaccine (MCV4P) TDAP 2009-07-22 Completed [facility] 00:00:00 [facility] HEPATITIS A 2009-07-22 Completed [facility] 00:00:00 [facility] Meningococcal 2009-07-22 Completed [facility] Polysaccharide 00:00:00 [place] [facility] (groups A, C, Y and Branc h W-135) conjugate vaccine (MCV4P) TDAP 2009-07-22 Completed [facility] 00:00:00 [facility] HEPATITIS A 2009-07-22 Completed [facility] 00:00:00 [facility] Meningococcal 2009-07-22 Completed [facility] Polysaccharide 00:00:00 [place] [facility] (groups A, C, Y and Branc h W-135) conjugate vaccine (MCV4P) TDAP 2009-07-22 Completed [facility] 00:00:00 [facility] HEPATITIS A 2009-07-22 Completed [facility] of 00:00:00 [facility] Meningococcal 2009-07-22 Completed [facility] Polysaccharide 00:00:00 [place] [facility] (groups A, C, Y and Branc h W-135) conjugate vaccine (MCV4P) TDAP 2009-07-22 Completed [facility] 00:00:00 [facility] HEPATITIS A 2009-07-22 Completed [facility] 00:00:00 [facility] Meningococcal 2009-07-22 Completed [facility] Polysaccharide 00:00:00 [place] [facility] (groups A, C, Y and Branc h W-135) conjugate vaccine (MCV4P) TDAP 2009-07-22 Completed [facility] 00:00:00 [facility] HEPATITIS A 2009-07-22 Completed [facility] 00:00:00 [facility] Meningococcal 2009-07-22 Completed [facility] Polysaccharide 00:00:00 [place] [facility] (groups A, C, Y and Branc h W-135) conjugate vaccine (MCV4P) TDAP 2009-07-22 Completed [facility] 00:00:00 [facility] HEPATITIS A 2009-07-22 Completed [facility] 00:00:00 [facility] Meningococcal 2009-07-22 Completed [facility] Polysaccharide 00:00:00 [place] [facility] (groups A, C, Y and Branc h W-135) conjugate vaccine (MCV4P) TDAP 2009-07-22 Completed [facility] 00:00:00 [facility] HEPATITIS A 2009-07-22 Completed [facility] 00:00:00 [facility] Meningococcal 2009-07-22 Completed [facility] Polysaccharide 00:00:00 [place] [facility] (groups A, C, Y and Branc h W-135) conjugate vaccine (MCV4P) TDAP 2009-07-22 Completed [facility] 00:00:00 [facility] HEPATITIS A 2009-07-22 Completed [facility] 00:00:00 [facility] Meningococcal 2009-07-22 Completed [facility] Polysaccharide 00:00:00 [place] [facility] (groups A, C, Y and Branc h W-135) conjugate vaccine (MCV4P) TDAP 2009-07-22 Completed [facility] 00:00:00 [facility] HEPATITIS A 2009-07-22 Completed [facility] 00:00:00 [facility] Meningococcal 2009-07-22 Completed [facility] Polysaccharide 00:00:00 [place] [facility] (groups A, C, Y and Branc h W-135) conjugate vaccine (MCV4P) TDAP 2009-07-22 Completed [facility] 00:00:00 [facility] HEPATITIS A 2009-07-22 Completed [facility] 00:00:00 [facility] Meningococcal 2009-07-22 Completed [facility] Polysaccharide 00:00:00 [place] [facility] (groups A, C, Y and Branc h W-135) conjugate vaccine (MCV4P) TDAP 2009-07-22 Completed [facility] 00:00:00 [facility] HEPATITIS A 2009-07-22 Completed [facility] 00:00:00 [facility] Meningococcal 2009-07-22 Completed [facility] Polysaccharide 00:00:00 [place] [facility] (groups A, C, Y and Branc h W-135) conjugate vaccine (MCV4P) TDAP 2009-07-22 Completed [facility] 00:00:00 [facility] HEPATITIS A 2009-07-22 Completed [facility] 00:00:00 [facility] Meningococcal 2009-07-22 Completed [facility] Polysaccharide 00:00:00 [place] [facility] (groups A, C, Y and Branc h W-135) conjugate vaccine (MCV4P) TDAP 2009-07-22 Completed [facility] 00:00:00 [facility] HEPATITIS A 2009-07-22 Completed [facility] 00:00:00 [facility] Meningococcal 2009-07-22 Completed [facility] Polysaccharide 00:00:00 [place] [facility] (groups A, C, Y and Branc h W-135) conjugate vaccine (MCV4P) TDAP 2009-07-22 Completed [facility] 00:00:00 [facility] HEPATITIS A 2009-07-22 Completed [facility] 00:00:00 [facility] Meningococcal 2009-07-22 Completed [facility] Polysaccharide 00:00:00 [place] [facility] (groups A, C, Y and Branc h W-135) conjugate vaccine (MCV4P) TDAP 2009-07-22 Completed [facility] 00:00:00 [facility] HEPATITIS A 2009-07-22 Completed [facility] 00:00:00 [facility] Meningococcal 2009-07-22 Completed [facility] Polysaccharide 00:00:00 [place] [facility] (groups A, C, Y and Branc h W-135) conjugate vaccine (MCV4P) TDAP 2009-07-22 Completed [facility] 00:00:00 [facility] HEPATITIS A 2009-07-22 Completed [facility] 00:00:00 [facility] Meningococcal 2009-07-22 Completed [facility] Polysaccharide 00:00:00 [place] [facility] (groups A, C, Y and Branc h W-135) conjugate vaccine (MCV4P) TDAP 2009-07-22 Completed [facility] 00:00:00 [facility] HEPATITIS A 2009-07-22 Completed [facility] 00:00:00 [facility] Meningococcal 2009-07-22 Completed [facility] Polysaccharide 00:00:00 [place] [facility] (groups A, C, Y and Branc h W-135) conjugate vaccine (MCV4P) TDAP 2009-07-22 Completed [facility] 00:00:00 [facility] HEPATITIS A 2009-07-22 Completed [facility] 00:00:00 [facility] Meningococcal 2009-07-22 Completed [facility] Polysaccharide 00:00:00 [place] [facility] (groups A, C, Y and Branc h W-135) conjugate vaccine (MCV4P) TDAP 2009-07-22 Completed [facility] 00:00:00 [facility] HEPATITIS A 2009-07-22 Completed [facility] 00:00:00 [facility] Meningococcal 2009-07-22 Completed [facility] Polysaccharide 00:00:00 [place] [facility] (groups A, C, Y and Branc h W-135) conjugate vaccine (MCV4P) TDAP 2009-07-22 Completed [facility] 00:00:00 [facility] HEPATITIS A 2009-07-22 Completed [facility] 00:00:00 [facility] Meningococcal 2009-07-22 Completed [facility] Polysaccharide 00:00:00 [place] [facility] (groups A, C, Y and Branc h W-135) conjugate vaccine (MCV4P) TDAP 2009-07-22 Completed [facility] 00:00:00 [facility] HEPATITIS A 2009-07-22 Completed [facility] 00:00:00 [facility] Meningococcal 2009-07-22 Completed [facility] Polysaccharide 00:00:00 [place] [facility] (groups A, C, Y and Branc h W-135) conjugate vaccine (MCV4P) TDAP 2009-07-22 Completed [facility] 00:00:00 [facility] HEPATITIS A 2009-07-22 Completed [facility] 00:00:00 [facility] Meningococcal 2009-07-22 Completed [facility] Polysaccharide 00:00:00 [place] [facility] (groups A, C, Y and Branc h W-135) conjugate vaccine (MCV4P) TDAP 2009-07-22 Completed [facility] 00:00:00 [facility] HEPATITIS A 2009-07-22 Completed [facility] 00:00:00 [facility] Meningococcal 2009-07-22 Completed [facility] Polysaccharide 00:00:00 [place] [facility] (groups A, C, Y and Branc h W-135) conjugate vaccine (MCV4P) TDAP 2009-07-22 Completed [facility] 00:00:00 [facility] HEPATITIS A 2009-07-22 Completed [facility] 00:00:00 [facility] Meningococcal 2009-07-22 Completed [facility] Polysaccharide 00:00:00 [place] [facility] (groups A, C, Y and Branc h W-135) conjugate vaccine (MCV4P) TDAP 2009-07-22 Completed [facility] 00:00:00 [facility] HEPATITIS A 2009-07-22 Completed [facility] 00:00:00 [facility] Meningococcal 2009-07-22 Completed [facility] Polysaccharide 00:00:00 [place] [facility] (groups A, C, Y and Branc h W-135) conjugate vaccine (MCV4P) TDAP 2009-07-22 Completed [facility] 00:00:00 [facility] HEPATITIS A 2009-07-22 Completed [facility] 00:00:00 [facility] Meningococcal 2009-07-22 Completed [facility] Polysaccharide 00:00:00 [place] [facility] (groups A, C, Y and Branc h W-135) conjugate vaccine (MCV4P) TDAP 2009-07-22 Completed [facility] 00:00:00 [facility] HEPATITIS A 2009-07-22 Completed [facility] 00:00:00 [facility] Meningococcal 2009-07-22 Completed [facility] Polysaccharide 00:00:00 [place] [facility] (groups A, C, Y and Branc h W-135) conjugate vaccine (MCV4P) TDAP 2009-07-22 Completed [facility] 00:00:00 [facility] HEPATITIS A 2009-07-22 Completed [facility] 00:00:00 [facility] Meningococcal 2009-07-22 Completed [facility] Polysaccharide 00:00:00 [place] [facility] (groups A, C, Y and Branc h W-135) conjugate vaccine (MCV4P) TDAP 2009-07-22 Completed [facility] 00:00:00 [facility] HEPATITIS A 2009-07-22 Completed [facility] 00:00:00 [facility] Meningococcal 2009-07-22 Completed [facility] Polysaccharide 00:00:00 [place] [facility] (groups A, C, Y and Branc h W-135) conjugate vaccine (MCV4P) TDAP 2009-07-22 Completed [facility] 00:00:00 [facility] HEPATITIS A 2009-07-22 Completed [facility] 00:00:00 [facility] Meningococcal 2009-07-22 Completed [facility] Polysaccharide 00:00:00 [place] [facility] (groups A, C, Y and Branc h W-135) conjugate vaccine (MCV4P) TDAP 2009-07-22 Completed [facility] 00:00:00 [facility] HEPATITIS A 2009-07-22 Completed [facility] 00:00:00 [facility] Meningococcal 2009-07-22 Completed [facility] Polysaccharide 00:00:00 [place] [facility] (groups A, C, Y and Branc h W-135) conjugate vaccine (MCV4P) TDAP 2009-07-22 Completed [facility] 00:00:00 [facility] HEPATITIS A 2009-07-22 Completed [facility] 00:00:00 [facility] Meningococcal 2009-07-22 Completed [facility] Polysaccharide 00:00:00 [place] [facility] (groups A, C, Y and Branc h W-135) conjugate vaccine (MCV4P) HEPATITIS A 2008-07-11 Completed [facility] 00:00:00 [facility] HEPATITIS A 2008-07-11 Completed [facility] 00:00:00 [facility] HEPATITIS A 2008-07-11 Completed [facility] 00:00:00 [facility] HEPATITIS A 2008-07-11 Completed [facility] 00:00:00 [facility] HEPATITIS A 2008-07-11 Completed [facility] 00:00:00 [facility] HEPATITIS A 2008-07-11 Completed [facility] 00:00:00 [facility] HEPATITIS A 2008-07-11 Completed [facility] 00:00:00 [facility] HEPATITIS A 2008-07-11 Completed [facility] 00:00:00 [facility] HEPATITIS A 2008-07-11 Completed [facility] 00:00:00 [facility] HEPATITIS A 2008-07-11 Completed [facility] 00:00:00 [facility] HEPATITIS A 2008-07-11 Completed [facility] 00:00:00 [facility] HEPATITIS A 2008-07-11 Completed [facility] 00:00:00 [facility] HEPATITIS A 2008-07-11 Completed [facility] 00:00:00 [facility] HEPATITIS A 2008-07-11 Completed [facility] 00:00:00 [facility] HEPATITIS A 2008-07-11 Completed [facility] 00:00:00 [facility] HEPATITIS A 2008-07-11 Completed [facility] 00:00:00 [facility] HEPATITIS A 2008-07-11 Completed [facility] 00:00:00 [facility] HEPATITIS A 2008-07-11 Completed [facility] 00:00:00 [facility] HEPATITIS A 2008-07-11 Completed [facility] 00:00:00 [facility] HEPATITIS A 2008-07-11 Completed [facility] 00:00:00 [facility] HEPATITIS A 2008-07-11 Completed [facility] 00:00:00 [facility] HEPATITIS A 2008-07-11 Completed [facility] 00:00:00 [facility] HEPATITIS A 2008-07-11 Completed [facility] 00:00:00 [facility] HEPATITIS A 2008-07-11 Completed [facility] 00:00:00 [facility] HEPATITIS A 2008-07-11 Completed [facility] 00:00:00 [facility] HEPATITIS A 2008-07-11 Completed [facility] 00:00:00 [facility] HEPATITIS A 2008-07-11 Completed [facility] 00:00:00 [facility] HEPATITIS A 2008-07-11 Completed [facility] 00:00:00 [facility] HEPATITIS A 2008-07-11 Completed [facility] 00:00:00 [facility] HEPATITIS A 2008-07-11 Completed [facility] 00:00:00 [facility] HEPATITIS A 2008-07-11 Completed [facility] 00:00:00 [facility] HEPATITIS A 2008-07-11 Completed [facility] 00:00:00 [facility] HEPATITIS A 2008-07-11 Completed [facility] 00:00:00 [facility] HEPATITIS A 2008-07-11 Completed [facility] 00:00:00 [facility] HEPATITIS A 2008-07-11 Completed [facility] 00:00:00 [facility] HEPATITIS A 2008-07-11 Completed [facility] 00:00:00 [facility] HEPATITIS A 2008-07-11 Completed [facility] 00:00:00 [facility] Varicella 2006-04-29 Completed [facility] of (varivax)(chicken 00:00:00 [place] [facility] Varicella 2006-04-29 Completed [facility] (varivax)(chicken 00:00:00 [place] [facility] Varicella 2006-04-29 Completed [facility] (varivax)(chicken 00:00:00 [place] [facility] Varicella 2006-04-29 Completed [facility] (varivax)(chicken 00:00:00 [place] [facility] Varicella 2006-04-29 Completed [facility] (varivax)(chicken 00:00:00 [place] [facility] Varicella 2006-04-29 Completed [facility] (varivax)(chicken 00:00:00 [place] [facility] Varicella 2006-04-29 Completed [facility] (varivax)(chicken 00:00:00 [place] [facility] Varicella 2006-04-29 Completed [facility] (varivax)(chicken 00:00:00 [place] [facility] Varicella 2006-04-29 Completed [facility] (varivax)(chicken 00:00:00 [place] [facility] Varicella 2006-04-29 Completed [facility] (varivax)(chicken 00:00:00 [place] [facility] pox) Branch Varicella 2006-04-29 Completed [facility] (varivax)(chicken 00:00:00 [facility] Varicella 2006-04-29 Completed [facility] (varivax)(chicken 00:00:00 [facility] p[facility] Varicella 2006-04-29 Completed [facility] (varivax)(chicken 00:00:00 [facility] pox) [facility] Varicella 2006-04-29 Completed [facility] (varivax)(chicken 00:00:00 [facility] pox) [facility] Varicella 2006-04-29 Completed [facility] (varivax)(chicken 00:00:00 [facility] pox) [facility] Varicella 2006-04-29 Completed [facility] (varivax)(chicken 00:00:00 [facility] pox) [facility] Varicella 2006-04-29 Completed [facility] (varivax)(chicken 00:00:00 [facility] pox) [facility] Varicella 2006-04-29 Completed [facility] (varivax)(chicken 00:00:00 [facility] pox) [facility] Varicella 2006-04-29 Completed [facility] (varivax)(chicken 00:00:00 [facility] pox) [facility] Varicella 2006-04-29 Completed [facility] (varivax)(chicken 00:00:00 [facility] pox) [facility] Varicella 2006-04-29 Completed [facility] (varivax)(chicken 00:00:00 [place] [facility] pox) [facility] Varicella 2006-04-29 Completed [facility] (varivax)(chicken 00:00:00 [facility] pox) [facility] Varicella 2006-04-29 Completed [facility] (varivax)(chicken 00:00:00 [facility] pox) [facility] Varicella 2006-04-29 Completed [facility] (varivax)(chicken 00:00:00 [facility] pox) [facility] Varicella 2006-04-29 Completed [facility] (varivax)(chicken 00:00:00 [place] [facility] pox) [facility] Varicella 2006-04-29 Completed [facility] (varivax)(chicken 00:00:00 [facility] pox) [facility] Varicella 2006-04-29 Completed [facility] (varivax)(chicken 00:00:00 [place] [facility] pox) [facility] Varicella 2006-04-29 Completed [facility] (varivax)(chicken 00:00:00 [place] [facility] pox) [facility] Varicella 2006-04-29 Completed [facility] (varivax)(chicken 00:00:00 [place] [facility] pox) [facility] Varicella 2006-04-29 Completed [facility] (varivax)(chicken 00:00:00 [place] [facility] pox) [facility] Varicella 2006-04-29 Completed [facility] (varivax)(chicken 00:00:00 [place] [facility] pox) [facility] Varicella 2006-04-29 Completed [facility] (varivax)(chicken 00:00:00 [place] [facility] pox) [facility] Varicella 2006-04-29 Completed [facility] (varivax)(chicken 00:00:00 [place] [facility] pox) [facility] Varicella 2006-04-29 Completed [facility] (varivax)(chicken 00:00:00 [place] [facility] pox) [facility] Varicella 2006-04-29 Completed [facility] (varivax)(chicken 00:00:00 [place] [facility] pox) [facility] Varicella 2006-04-29 Completed [facility] (varivax)(chicken 00:00:00 [place] [facility] pox) [facility] Varicella 2006-04-29 Completed [facility] (varivax)(chicken 00:00:00 [place] [facility] pox) [facility] DTaP, Unspecified 2002-06-30 Completed [facility] Formulation 00:00:00 [facility] MMR 2002-06-30 Completed [facility] 00:00:00 [facility] IPV 2002-06-30 Completed [facility] 00:00:00 [facility] DTaP, Unspecified 2002-06-30 Completed [facility] Formulation 00:00:00 [facility] MMR 2002-06-30 Completed [facility] 00:00:00 [facility] IPV 2002-06-30 Completed [facility] 00:00:00 [facility] DTaP, Unspecified 2002-06-30 Completed [facility] Formulation 00:00:00 [facility] MMR 2002-06-30 Completed [facility] 00:00:00 [facility] IPV 2002-06-30 Completed [facility] 00:00:00 [facility] DTaP, Unspecified 2002-06-30 Completed [facility] Formulation 00:00:00 [facility] MMR 2002-06-30 Completed [facility] 00:00:00 [facility] IPV 2002-06-30 Completed [facility] 00:00:00 [facility] DTaP, Unspecified 2002-06-30 Completed [facility] Formulation 00:00:00 [facility] MMR 2002-06-30 Completed [facility] 00:00:00 [facility] IPV 2002-06-30 Completed [facility] 00:00:00 [facility] DTaP, Unspecified 2002-06-30 Completed [facility] Formulation 00:00:00 [facility] MMR 2002-06-30 Completed [facility] 00:00:00 [facility] IPV 2002-06-30 Completed [facility] 00:00:00 [facility] DTaP, Unspecified 2002-06-30 Completed [facility] Formulation 00:00:00 [facility] MMR 2002-06-30 Completed [facility] 00:00:00 [facility] IPV 2002-06-30 Completed [facility] 00:00:00 [facility] DTaP, Unspecified 2002-06-30 Completed [facility] Formulation 00:00:00 [facility] MMR 2002-06-30 Completed [facility] 00:00:00 [facility] IPV 2002-06-30 Completed [facility] 00:00:00 [facility] DTaP, Unspecified 2002-06-30 Completed [facility] Formulation 00:00:00 [facility] MMR 2002-06-30 Completed [facility] 00:00:00 [facility] IPV 2002-06-30 Completed [facility] 00:00:00 [facility] DTaP, Unspecified 2002-06-30 Completed [facility] Formulation 00:00:00 [facility] MMR 2002-06-30 Completed [facility] 00:00:00 [facility] IPV 2002-06-30 Completed [facility] 00:00:00 [facility] DTaP, Unspecified 2002-06-30 Completed [facility] Formulation 00:00:00 [facility] MMR 2002-06-30 Completed [facility] 00:00:00 [facility] IPV 2002-06-30 Completed [facility] 00:00:00 [facility] DTaP, Unspecified 2002-06-30 Completed [facility] Formulation 00:00:00 [facility] MMR 2002-06-30 Completed [facility] 00:00:00 [facility] IPV 2002-06-30 Completed [facility] 00:00:00 [facility] DTaP, Unspecified 2002-06-30 Completed [facility] Formulation 00:00:00 [facility] MMR 2002-06-30 Completed [facility] 00:00:00 [facility] IPV 2002-06-30 Completed [facility] 00:00:00 [facility] DTaP, Unspecified 2002-06-30 Completed [facility] Formulation 00:00:00 [facility] MMR 2002-06-30 Completed [facility] 00:00:00 [facility] IPV 2002-06-30 Completed [facility] 00:00:00 [facility] DTaP, Unspecified 2002-06-30 Completed [facility] Formulation 00:00:00 [facility] MMR 2002-06-30 Completed [facility] 00:00:00 [facility] IPV 2002-06-30 Completed [facility] 00:00:00 [facility] DTaP, Unspecified 2002-06-30 Completed [facility] Formulation 00:00:00 [facility] MMR 2002-06-30 Completed [facility] 00:00:00 [facility] IPV 2002-06-30 Completed [facility] 00:00:00 [facility] DTaP, Unspecified 2002-06-30 Completed [facility] Formulation 00:00:00 [facility] MMR 2002-06-30 Completed [facility] 00:00:00 [facility] IPV 2002-06-30 Completed [facility] 00:00:00 [facility] DTaP, Unspecified 2002-06-30 Completed [facility] Formulation 00:00:00 [facility] MMR 2002-06-30 Completed [facility] 00:00:00 [facility] IPV 2002-06-30 Completed [facility] 00:00:00 [facility] DTaP, Unspecified 2002-06-30 Completed [facility] Formulation 00:00:00 [facility] MMR 2002-06-30 Completed [facility] 00:00:00 [facility] IPV 2002-06-30 Completed [facility] 00:00:00 [facility] DTaP, Unspecified 2002-06-30 Completed [facility] Formulation 00:00:00 [facility] MMR 2002-06-30 Completed [facility] 00:00:00 [facility] IPV 2002-06-30 Completed [facility] 00:00:00 [facility] DTaP, Unspecified 2002-06-30 Completed [facility] Formulation 00:00:00 [facility] MMR 2002-06-30 Completed [facility] 00:00:00 [facility] IPV 2002-06-30 Completed [facility] 00:00:00 [facility] DTaP, Unspecified 2002-06-30 Completed [facility] Formulation 00:00:00 [facility] MMR 2002-06-30 Completed [facility] 00:00:00 [facility] IPV 2002-06-30 Completed [facility] 00:00:00 [facility] DTaP, Unspecified 2002-06-30 Completed [facility] Formulation 00:00:00 [facility] MMR 2002-06-30 Completed [facility] 00:00:00 [facility] IPV 2002-06-30 Completed [facility] 00:00:00 [facility] DTaP, Unspecified 2002-06-30 Completed [facility] Formulation 00:00:00 [facility] MMR 2002-06-30 Completed [facility] 00:00:00 [facility] IPV 2002-06-30 Completed [facility] 00:00:00 [facility] DTaP, Unspecified 2002-06-30 Completed [facility] Formulation 00:00:00 [facility] MMR 2002-06-30 Completed [facility] 00:00:00 [facility] IPV 2002-06-30 Completed [facility] 00:00:00 [facility] DTaP, Unspecified 2002-06-30 Completed [facility] Formulation 00:00:00 [facility] MMR 2002-06-30 Completed [facility] 00:00:00 [facility] IPV 2002-06-30 Completed [facility] 00:00:00 [facility] DTaP, Unspecified 2002-06-30 Completed [facility] Formulation 00:00:00 [facility] MMR 2002-06-30 Completed [facility] 00:00:00 [facility] IPV 2002-06-30 Completed [facility] 00:00:00 [facility] DTaP, Unspecified 2002-06-30 Completed [facility] Formulation 00:00:00 [facility] MMR 2002-06-30 Completed [facility] 00:00:00 [facility] IPV 2002-06-30 Completed [facility] 00:00:00 [facility] DTaP, Unspecified 2002-06-30 Completed [facility] Formulation 00:00:00 [facility] MMR 2002-06-30 Completed [facility] 00:00:00 [facility] IPV 2002-06-30 Completed [facility] 00:00:00 [facility] DTaP, Unspecified 2002-06-30 Completed [facility] Formulation 00:00:00 [facility] MMR 2002-06-30 Completed [facility] 00:00:00 [facility] IPV 2002-06-30 Completed [facility] 00:00:00 [facility] DTaP, Unspecified 2002-06-30 Completed [facility] Formulation 00:00:00 [facility] MMR 2002-06-30 Completed [facility] 00:00:00 [facility] IPV 2002-06-30 Completed [facility] 00:00:00 [facility] DTaP, Unspecified 2002-06-30 Completed [facility] Formulation 00:00:00 [facility] MMR 2002-06-30 Completed [facility] 00:00:00 [facility] IPV 2002-06-30 Completed [facility] 00:00:00 [facility] DTaP, Unspecified 2002-06-30 Completed [facility] Formulation 00:00:00 [facility] MMR 2002-06-30 Completed [facility] 00:00:00 [facility] IPV 2002-06-30 Completed [facility] 00:00:00 [facility] DTaP, Unspecified 2002-06-30 Completed [facility] Formulation 00:00:00 [facility] MMR 2002-06-30 Completed [facility] 00:00:00 [facility] IPV 2002-06-30 Completed [facility] 00:00:00 [facility] DTaP, Unspecified 2002-06-30 Completed [facility] Formulation 00:00:00 [facility] MMR 2002-06-30 Completed [facility] 00:00:00 [facility] IPV 2002-06-30 Completed [facility] 00:00:00 [facility] DTaP, Unspecified 2002-06-30 Completed [facility] Formulation 00:00:00 [facility] MMR 2002-06-30 Completed [facility] 00:00:00 [facility] IPV 2002-06-30 Completed [facility] 00:00:00 [facility] DTaP, Unspecified 2002-06-30 Completed [facility] Formulation 00:00:00 [facility] MMR 2002-06-30 Completed [facility] 00:00:00 [facility] IPV 2002-06-30 Completed [facility] 00:00:00 [facility] DTaP, Unspecified 2000-03-24 Completed [facility] Formulation 00:00:00 [facility] HIB 4 Dose Schedule 2000-03-24 Completed Unive rsity of 00:00:00 [facility] Pneumococcal 7 2000-03-24 Completed [facility] of Conjugate, PCV7 00:00:00 [place] [facility] (Prevnar7) Branch IPV 2000-03-24 Completed [facility] 00:00:00 [facility] DTaP, Unspecified 2000-03-24 Completed [facility] Formulation 00:00:00 [facility] HIB 4 Dose Schedule 2000-03-24 Completed Unive rsity of 00:00:00 [facility] Pneumococcal 7 2000-03-24 Completed [facility] Conjugate, PCV7 00:00:00 [place] [facility] (Prevnar7) Branch IPV 2000-03-24 Completed [facility] 00:00:00 [facility] DTaP, Unspecified 2000-03-24 Completed [facility] Formulation 00:00:00 [facility] HIB 4 Dose Schedule 2000-03-24 Completed Unive rsity of 00:00:00 [facility] Pneumococcal 7 2000-03-24 Completed [facility] Conjugate, PCV7 00:00:00 [place] [facility] (Prevnar7) Branch IPV 2000-03-24 Completed [facility] 00:00:00 [facility] DTaP, Unspecified 2000-03-24 Completed [facility] Formulation 00:00:00 [facility] HIB 4 Dose Schedule 2000-03-24 Completed Unive rsity of 00:00:00 [facility] Pneumococcal 7 2000-03-24 Completed [facility] Conjugate, PCV7 00:00:00 [place] [facility] (Prevnar7) [facility] IPV 2000-03-24 Completed [facility] 00:00:00 [facility] DTaP, Unspecified 2000-03-24 Completed [facility] Formulation 00:00:00 [facility] HIB 4 Dose Schedule 2000-03-24 Completed Unive rsity of 00:00:00 [facility] Pneumococcal 7 2000-03-24 Completed [facility] Conjugate, PCV7 00:00:00 [place] [facility] (Prevnar7) [facility] IPV 2000-03-24 Completed [facility] 00:00:00 [facility] DTaP, Unspecified 2000-03-24 Completed [facility] of Formulation 00:00:00 [facility] HIB 4 Dose Schedule 2000-03-24 Completed Unive rsity of 00:00:00 [facility] Pneumococcal 7 2000-03-24 Completed [facility] Conjugate, PCV7 00:00:00 [place] [facility] (Prevnar7) Branch IPV 2000-03-24 Completed [facility] 00:00:00 [facility] DTaP, Unspecified 2000-03-24 Completed [facility] Formulation 00:00:00 [facility] HIB 4 Dose Schedule 2000-03-24 Completed Unive rsity of 00:00:00 [facility] Pneumococcal 7 2000-03-24 Completed [facility] Conjugate, PCV7 00:00:00 [place] [facility] (Prevnar7) Branch IPV 2000-03-24 Completed [facility] 00:00:00 [facility] DTaP, Unspecified 2000-03-24 Completed [facility] Formulation 00:00:00 [facility] HIB 4 Dose Schedule 2000-03-24 Completed Unive rsity of 00:00:00 [facility] Pneumococcal 7 2000-03-24 Completed [facility] Conjugate, PCV7 00:00:00 [place] [facility] (Prevnar7) Branch IPV 2000-03-24 Completed [facility] 00:00:00 [facility] DTaP, Unspecified 2000-03-24 Completed [facility] of Formulation 00:00:00 [facility] HIB 4 Dose Schedule 2000-03-24 Completed Unive rsity of 00:00:00 [facility] Pneumococcal 7 2000-03-24 Completed [facility] Conjugate, PCV7 00:00:00 [place] [facility] (Prevnar7) [facility] IPV 2000-03-24 Completed [facility] 00:00:00 [facility] DTaP, Unspecified 2000-03-24 Completed [facility] of Formulation 00:00:00 [facility] HIB 4 Dose Schedule 2000-03-24 Completed Unive rsity of 00:00:00 [facility] Pneumococcal 7 2000-03-24 Completed [facility] Conjugate, PCV7 00:00:00 [place] [facility] (Prevnar7) [facility] IPV 2000-03-24 Completed [facility] 00:00:00 [facility] DTaP, Unspecified 2000-03-24 Completed [facility] of Formulation 00:00:00 [facility] HIB 4 Dose Schedule 2000-03-24 Completed Unive rsity of 00:00:00 [facility] Pneumococcal 7 2000-03-24 Completed [facility] Conjugate, PCV7 00:00:00 [place] [facility] (Prevnar7) Branch IPV 2000-03-24 Completed [facility] 00:00:00 [facility] DTaP, Unspecified 2000-03-24 Completed [facility] of Formulation 00:00:00 [facility] HIB 4 Dose Schedule 2000-03-24 Completed Unive rsity of 00:00:00 [facility] Pneumococcal 7 2000-03-24 Completed [facility] Conjugate, PCV7 00:00:00 [place] [facility] (Prevnar7) Branch IPV 2000-03-24 Completed [facility] 00:00:00 [facility] DTaP, Unspecified 2000-03-24 Completed [facility] of Formulation 00:00:00 [facility] HIB 4 Dose Schedule 2000-03-24 Completed Unive rsity of 00:00:00 [facility] Pneumococcal 7 2000-03-24 Completed [facility] Conjugate, PCV7 00:00:00 [place] [facility] (Prevnar7) Branch IPV 2000-03-24 Completed [facility] 00:00:00 [facility] DTaP, Unspecified 2000-03-24 Completed [facility] of Formulation 00:00:00 [facility] HIB 4 Dose Schedule 2000-03-24 Completed Unive rsity of 00:00:00 [facility] Pneumococcal 7 2000-03-24 Completed [facility] Conjugate, PCV7 00:00:00 [place] [facility] (Prevnar7) Branch IPV 2000-03-24 Completed [facility] 00:00:00 [facility] DTaP, Unspecified 2000-03-24 Completed [facility] it[facility] of Formulation 00:00:00 [facility] HIB 4 Dose Schedule 2000-03-24 Completed Unive rsity of 00:00:00 [facility] Pneumococcal 7 2000-03-24 Completed [facility] Conjugate, PCV7 00:00:00 [place] [facility] (Prevnar7) [facility] IPV 2000-03-24 Completed [facility] 00:00:00 [facility] DTaP, Unspecified 2000-03-24 Completed [facility] it[facility] of Formulation 00:00:00 [facility] HIB 4 Dose Schedule 2000-03-24 Completed Unive rsity of 00:00:00 [facility] Pneumococcal 7 2000-03-24 Completed [facility] Conjugate, PCV7 00:00:00 [place] [facility] (Prevnar7) [facility] IPV 2000-03-24 Completed [facility] 00:00:00 [facility] DTaP, Unspecified 2000-03-24 Completed [facility] it[facility] of Formulation 00:00:00 [facility] HIB 4 Dose Schedule 2000-03-24 Completed Unive rsity of 00:00:00 [facility] Pneumococcal 7 2000-03-24 Completed [facility] Conjugate, PCV7 00:00:00 [place] [facility] (Prevnar7) [facility] IPV 2000-03-24 Completed [facility] 00:00:00 [facility] DTaP, Unspecified 2000-03-24 Completed [facility] ity of Formulation 00:00:00 [facility] HIB 4 Dose Schedule 2000-03-24 Completed Unive rsity of 00:00:00 [facility] Pneumococcal 7 2000-03-24 Completed [facility] Conjugate, PCV7 00:00:00 [place] [facility] (Prevnar7) [facility] IPV 2000-03-24 Completed [facility] 00:00:00 [facility] DTaP, Unspecified 2000-03-24 Completed [facility] of Formulation 00:00:00 [facility] HIB 4 Dose Schedule 2000-03-24 Completed Unive rsity of 00:00:00 [facility] Pneumococcal 7 2000-03-24 Completed [facility] Conjugate, PCV7 00:00:00 [place] [facility] (Prevnar7) [facility] IPV 2000-03-24 Completed [facility] 00:00:00 [facility] DTaP, Unspecified 2000-03-24 Completed [facility] of Formulation 00:00:00 [facility] HIB 4 Dose Schedule 2000-03-24 Completed Unive rsity of 00:00:00 [facility] Pneumococcal 7 2000-03-24 Completed [facility] Conjugate, PCV7 00:00:00 [place] [facility] (Prevnar7) [facility] IPV 2000-03-24 Completed [facility] 00:00:00 [facility] DTaP, Unspecified 2000-03-24 Completed [facility] of Formulation 00:00:00 [facility] HIB 4 Dose Schedule 2000-03-24 Completed Unive rsity of 00:00:00 [facility] Pneumococcal 7 2000-03-24 Completed [facility] Conjugate, PCV7 00:00:00 [place] [facility] (Prevnar7) [facility] IPV 2000-03-24 Completed [facility] 00:00:00 [facility] DTaP, Unspecified 2000-03-24 Completed [facility] of Formulation 00:00:00 [facility] HIB 4 Dose Schedule 2000-03-24 Completed Unive rsity of 00:00:00 [facility] Pneumococcal 7 2000-03-24 Completed [facility] Conjugate, PCV7 00:00:00 [place] [facility] (Prevnar7) [facility] IPV 2000-03-24 Completed [facility] 00:00:00 [facility] DTaP, Unspecified 2000-03-24 Completed [facility] Formulation 00:00:00 [facility] HIB 4 Dose Schedule 2000-03-24 Completed Unive rsity of 00:00:00 [facility] Pneumococcal 7 2000-03-24 Completed [facility] Conjugate, PCV7 00:00:00 [place] [facility] (Prevnar7) [facility] IPV 2000-03-24 Completed [facility] 00:00:00 [facility] DTaP, Unspecified 2000-03-24 Completed [facility] Formulation 00:00:00 [facility] HIB 4 Dose Schedule 2000-03-24 Completed Unive rsity of 00:00:00 [facility] Pneumococcal 7 2000-03-24 Completed [facility] of Conjugate, PCV7 00:00:00 [place] [facility] (Prevnar7) [facility] IPV 2000-03-24 Completed [facility] 00:00:00 [facility] DTaP, Unspecified 2000-03-24 Completed [facility] Formulation 00:00:00 [facility] HIB 4 Dose Schedule 2000-03-24 Completed Unive rsity of 00:00:00 [facility] Pneumococcal 7 2000-03-24 Completed [facility] of Conjugate, PCV7 00:00:00 [place] [facility] (Prevnar7) [facility] IPV 2000-03-24 Completed [facility] 00:00:00 [facility] DTaP, Unspecified 2000-03-24 Completed [facility] Formulation 00:00:00 [facility] HIB 4 Dose Schedule 2000-03-24 Completed [facility]ive rsity of 00:00:00 [facility] Pneumococcal 7 2000-03-24 Completed [facility] of Conjugate, PCV7 00:00:00 [place] [facility] (Prevnar7) [facility] IPV 2000-03-24 Completed [facility] 00:00:00 [facility] DTaP, Unspecified 2000-03-24 Completed [facility] Formulation 00:00:00 [facility] HIB 4 Dose Schedule 2000-03-24 Completed Unive rsity of 00:00:00 [facility] Pneumococcal 7 2000-03-24 Completed [facility] of Conjugate, PCV7 00:00:00 [place] [facility] (Prevnar7) [facility] IPV 2000-03-24 Completed [facility] 00:00:00 [facility] DTaP, Unspecified 2000-03-24 Completed [facility] Formulation 00:00:00 [facility] HIB 4 Dose Schedule 2000-03-24 Completed [facility]ive rsity of 00:00:00 [facility] Pneumococcal 7 2000-03-24 Completed [facility] Conjugate, PCV7 00:00:00 [place] [facility] (Prevnar7) [facility] IPV 2000-03-24 Completed [facility] 00:00:00 [facility] DTaP, Unspecified 2000-03-24 Completed [facility] Formulation 00:00:00 [facility] HIB 4 Dose Schedule 2000-03-24 Completed [facility] rs[facility] of 00:00:00 [facility] Pneumococcal 7 2000-03-24 Completed [facility] Conjugate, PCV7 00:00:00 [place] [facility] (Prevnar7) [facility] IPV 2000-03-24 Completed [facility] 00:00:00 [facility] DTaP, Unspecified 2000-03-24 Completed [facility] Formulation 00:00:00 [facility] HIB 4 Dose Schedule 2000-03-24 Completed [facility] rs[facility] of 00:00:00 [facility] Pneumococcal 7 2000-03-24 Completed [facility] Conjugate, PCV7 00:00:00 [place] [facility] (Prevnar7) [facility] IPV 2000-03-24 Completed [facility] 00:00:00 [facility] DTaP, Unspecified 2000-03-24 Completed [facility] Formulation 00:00:00 [facility] HIB 4 Dose Schedule 2000-03-24 Completed [facility] rs[facility] of 00:00:00 [facility] Pneumococcal 7 2000-03-24 Completed [facility] Conjugate, PCV7 00:00:00 [place] [facility] (Prevnar7) [facility] IPV 2000-03-24 Completed [facility] 00:00:00 [facility] DTaP, Unspecified 2000-03-24 Completed [facility] Formulation 00:00:00 [facility] HIB 4 Dose Schedule 2000-03-24 Completed [facility] rsity of 00:00:00 [facility] Pneumococcal 7 2000-03-24 Completed [facility] of Conjugate, PCV7 00:00:00 [place] [facility] (Prevnar7) [facility] IPV 2000-03-24 Completed [facility] 00:00:00 [facility] DTaP, Unspecified 2000-03-24 Completed [facility] it[facility] Formulation 00:00:00 [facility] HIB 4 Dose Schedule 2000-03-24 Completed [facility] rsity of 00:00:00 [facility] Pneumococcal 7 2000-03-24 Completed [facility] of Conjugate, PCV7 00:00:00 [place] [facility] (Prevnar7) [facility] IPV 2000-03-24 Completed [facility] 00:00:00 [facility] DTaP, Unspecified 2000-03-24 Completed [facility] Formulation 00:00:00 [facility] HIB 4 Dose Schedule 2000-03-24 Completed [facility] rsity of 00:00:00 [facility] Pneumococcal 7 2000-03-24 Completed [facility] of Conjugate, PCV7 00:00:00 [place] [facility] (Prevnar7) [facility] IPV 2000-03-24 Completed [facility] 00:00:00 [facility] DTaP, Unspecified 2000-03-24 Completed [facility] Formulation 00:00:00 [facility] HIB 4 Dose Schedule 2000-03-24 Completed [facility]ive rsity of 00:00:00 [facility] Pneumococcal 7 2000-03-24 Completed [facility] of Conjugate, PCV7 00:00:00 [place] [facility] (Prevnar7) [facility] IPV 2000-03-24 Completed [facility] 00:00:00 [facility] DTaP, Unspecified 2000-03-24 Completed [facility] of Formulation 00:00:00 [facility] HIB 4 Dose Schedule 2000-03-24 Completed [facility] rsity of 00:00:00 [facility] Pneumococcal 7 2000-03-24 Completed [facility] of Conjugate, PCV7 00:00:00 [place] [facility] (Prevnar7) [facility] IPV 2000-03-24 Completed [facility] 00:00:00 [facility] DTaP, Unspecified 2000-03-24 Completed [facility] it[facility] of Formulation 00:00:00 [facility] HIB 4 Dose Schedule 2000-03-24 Completed [facility] rsity of 00:00:00 [facility] Pneumococcal 7 2000-03-24 Completed [facility] of Conjugate, PCV7 00:00:00 [facility] ical (Prevnar7) Branch IPV 2000-03-24 Completed [facility] of 00:00:00 [facility] Varicella 1999-03-11 Completed [facility] of (varivax)(chicken 00:00:00 [place] [facility] pox) [facility] Hep B, Adol or Pedi 1999-03-11 Completed [facility]ive rsity of Dosage 00:00:00 [facility] MMR 1999-03-11 Completed [facility] of 00:00:00 [facility] Varicella 1999-03-11 Completed [facility] of (varivax)(chicken 00:00:00 [facility] edical pox) Branch Hep B, Adol or Pedi 1999-03-11 Completed Unive rsity of Dosage 00:00:00 [facility] MMR 1999-03-11 Completed [facility] of 00:00:00 [facility] Varicella 1999-03-11 Completed [facility] (varivax)(chicken 00:00:00 [place] [facility] pox[facility] Hep B, Adol or Pedi 1999-03-11 Completed [facility]ive [facility] of Dosage 00:00:00 [facility] MMR 1999-03-11 Completed [facility] 00:00:00 [facility] Varicella 1999-03-11 Completed [facility] (varivax)(chicken 00:00:00 [place] [facility] pox) [facility] Hep B, Adol or Pedi 1999-03-11 Completed [facility]ive rs[facility] of Dosage 00:00:00 [facility] MMR 1999-03-11 Completed [facility] of 00:00:00 [facility] Varicella 1999-03-11 Completed [facility] (varivax)(chicken 00:00:00 [place] [facility] pox) [facility] Hep B, Adol or Pedi 1999-03-11 Completed [facility]ive rsity of Dosage 00:00:00 [facility] MMR 1999-03-11 Completed [facility] 00:00:00 [facility] Varicella 1999-03-11 Completed [facility] (varivax)(chicken 00:00:00 [place] [facility] pox) [facility] Hep B, Adol or Pedi 1999-03-11 Completed [facility]ive rsity of Dosage 00:00:00 [facility] MMR 1999-03-11 Completed [facility] of 00:00:00 [facility] Varicella 1999-03-11 Completed [facility] (varivax)(chicken 00:00:00 [place] [facility] pox[facility] Hep B, Adol or Pedi 1999-03-11 Completed [facility]ive rsity of Dosage 00:00:00 [facility] MMR 1999-03-11 Completed [facility] 00:00:00 [facility] Varicella 1999-03-11 Completed [facility] (varivax)(chicken 00:00:00 [place] [facility] pox[facility] Hep B, Adol or Pedi 1999-03-11 Completed [facility]ive rsity of Dosage 00:00:00 [facility] MMR 1999-03-11 Completed [facility] 00:00:00 [facility] Varicella 1999-03-11 Completed [facility] (varivax)(chicken 00:00:00 [place] [facility] pox) [facility] Hep B, Adol or Pedi 1999-03-11 Completed [facility]ity of Dosage 00:00:00 [facility] MMR 1999-03-11 Completed [facility] 00:00:00 [facility] Varicella 1999-03-11 Completed [facility] (varivax)(chicken 00:00:00 [place] [facility] pox) [facility] Hep B, Adol or Pedi 1999-03-11 Completed [facility]ive rsity of Dosage 00:00:00 [facility] MMR 1999-03-11 Completed [facility] 00:00:00 [facility] Varicella 1999-03-11 Completed [facility] (varivax)(chicken 00:00:00 [place] [facility] pox) [facility] Hep B, Adol or Pedi 1999-03-11 Completed [facility]ive rsity of Dosage 00:00:00 [facility] MMR 1999-03-11 Completed [facility] 00:00:00 [facility] Varicella 1999-03-11 Completed [facility] (varivax)(chicken 00:00:00 [place] [facility] pox) [facility] Hep B, Adol or Pedi 1999-03-11 Completed [facility]ive rsity of Dosage 00:00:00 [facility] MMR 1999-03-11 Completed [facility] 00:00:00 [facility] Varicella 1999-03-11 Completed [facility] (varivax)(chicken 00:00:00 [place] [facility] pox) [facility] Hep B, Adol or Pedi 1999-03-11 Completed [facility]ive rsity of Dosage 00:00:00 [facility] MMR 1999-03-11 Completed [facility] 00:00:00 [facility] Varicella 1999-03-11 Completed [facility] (varivax)(chicken 00:00:00 [place] [facility] pox) [facility] Hep B, Adol or Pedi 1999-03-11 Completed [facility]ive [facility] of Dosage 00:00:00 [facility] MMR 1999-03-11 Completed [facility] 00:00:00 [facility] Varicella 1999-03-11 Completed [facility] (varivax)(chicken 00:00:00 [place] [facility] pox) [facility] Hep B, Adol or Pedi 1999-03-11 Completed [facility]ive [facility] of Dosage 00:00:00 [facility] MMR 1999-03-11 Completed [facility] 00:00:00 [facility] Varicella 1999-03-11 Completed [facility] (varivax)(chicken 00:00:00 [place] [facility] pox[facility] Hep B, Adol or Pedi 1999-03-11 Completed [facility]ive [facility]ity of Dosage 00:00:00 [facility] MMR 1999-03-11 Completed [facility] 00:00:00 [facility] Varicella 1999-03-11 Completed [facility] (varivax)(chicken 00:00:00 [place] [facility] pox[facility] Hep B, Adol or Pedi 1999-03-11 Completed [facility] of Dosage 00:00:00 [facility] MMR 1999-03-11 Completed [facility] 00:00:00 [facility] Varicella 1999-03-11 Completed [facility] (varivax)(chicken 00:00:00 [place] [facility] pox[facility] Hep B, Adol or Pedi 1999-03-11 Completed [facility] of Dosage 00:00:00 [facility] MMR 1999-03-11 Completed [facility] 00:00:00 [facility] Varicella 1999-03-11 Completed [facility] (varivax)(chicken 00:00:00 [place] [facility] pox) [facility] Hep B, Adol or Pedi 1999-03-11 Completed [facility]ive [facility] of Dosage 00:00:00 [facility] MMR 1999-03-11 Completed [facility] 00:00:00 [facility] Varicella 1999-03-11 Completed [facility] (varivax)(chicken 00:00:00 [place] [facility] pox) [facility] Hep B, Adol or Pedi 1999-03-11 Completed [facility]ive [facility] of Dosage 00:00:00 [facility] MMR 1999-03-11 Completed [facility] 00:00:00 [facility] Varicella 1999-03-11 Completed [facility] (varivax)(chicken 00:00:00 [place] [facility] pox[facility] Hep B, Adol or Pedi 1999-03-11 Completed [facility] of Dosage 00:00:00 [facility] MMR 1999-03-11 Completed [facility] 00:00:00 [facility] Varicella 1999-03-11 Completed [facility] (varivax)(chicken 00:00:00 [place] [facility] pox[facility] Hep B, Adol or Pedi 1999-03-11 Completed [facility]ive [facility]ity of Dosage 00:00:00 [facility] MMR 1999-03-11 Completed [facility] 00:00:00 [facility] Varicella 1999-03-11 Completed [facility] (varivax)(chicken 00:00:00 [place] [facility] pox[facility] Hep B, Adol or Pedi 1999-03-11 Completed [facility]ive [facility]ity of Dosage 00:00:00 [facility] MMR 1999-03-11 Completed [facility] 00:00:00 [facility] Varicella 1999-03-11 Completed [facility] (varivax)(chicken 00:00:00 [place] [facility] pox[facility] Hep B, Adol or Pedi 1999-03-11 Completed [facility] of Dosage 00:00:00 [facility] MMR 1999-03-11 Completed [facility] 00:00:00 [facility] Varicella 1999-03-11 Completed [facility] (varivax)(chicken 00:00:00 [place] [facility] pox[facility] Hep B, Adol or Pedi 1999-03-11 Completed [facility] of Dosage 00:00:00 [facility] MMR 1999-03-11 Completed [facility] 00:00:00 [facility] Varicella 1999-03-11 Completed [facility] (varivax)(chicken 00:00:00 [place] [facility] pox[facility] Hep B, Adol or Pedi 1999-03-11 Completed [facility]ive [facility] of Dosage 00:00:00 [facility] MMR 1999-03-11 Completed [facility] 00:00:00 [facility] Varicella 1999-03-11 Completed [facility] (varivax)(chicken 00:00:00 [place] [facility] pox[facility] Hep B, Adol or Pedi 1999-03-11 Completed [facility]ive [facility] of Dosage 00:00:00 [facility] MMR 1999-03-11 Completed [facility] 00:00:00 [facility] Varicella 1999-03-11 Completed [facility] (varivax)(chicken 00:00:00 [place] [facility] pox) [facility] Hep B, Adol or Pedi 1999-03-11 Completed [facility]ive [facility] of Dosage 00:00:00 [facility] MMR 1999-03-11 Completed [facility] 00:00:00 [facility] Varicella 1999-03-11 Completed [facility] (varivax)(chicken 00:00:00 [place] [facility] pox) [facility] Hep B, Adol or Pedi 1999-03-11 Completed [facility]ive rs[facility] of Dosage 00:00:00 [facility] MMR 1999-03-11 Completed [facility] of 00:00:00 [facility] Varicella 1999-03-11 Completed [facility] (varivax)(chicken 00:00:00 [place] [facility] pox) [facility] Hep B, Adol or Pedi 1999-03-11 Completed [facility]ive [facility]ity of Dosage 00:00:00 [facility] MMR 1999-03-11 Completed [facility] 00:00:00 [facility] Varicella 1999-03-11 Completed [facility] (varivax)(chicken 00:00:00 [place] [facility] pox[facility] Hep B, Adol or Pedi 1999-03-11 Completed [facility]ive [facility]ity of Dosage 00:00:00 [facility] MMR 1999-03-11 Completed [facility] 00:00:00 [facility] Varicella 1999-03-11 Completed [facility] (varivax)(chicken 00:00:00 [place] [facility] pox) [facility] Hep B, Adol or Pedi 1999-03-11 Completed [facility] of Dosage 00:00:00 [facility] MMR 1999-03-11 Completed [facility] 00:00:00 [facility] Varicella 1999-03-11 Completed [facility] (varivax)(chicken 00:00:00 [place] [facility] pox) [facility] Hep B, Adol or Pedi 1999-03-11 Completed [facility]ive rsity of Dosage 00:00:00 [facility] MMR 1999-03-11 Completed [facility] 00:00:00 [facility] Varicella 1999-03-11 Completed [facility] (varivax)(chicken 00:00:00 [place] [facility] pox) [facility] Hep B, Adol or Pedi 1999-03-11 Completed [facility] of Dosage 00:00:00 [facility] MMR 1999-03-11 Completed [facility] 00:00:00 [facility] Varicella 1999-03-11 Completed [facility] (varivax)(chicken 00:00:00 [place] [facility] pox) [facility] Hep B, Adol or Pedi 1999-03-11 Completed [facility] of Dosage 00:00:00 [facility] MMR 1999-03-11 Completed [facility] 00:00:00 [facility] Varicella 1999-03-11 Completed [facility] (varivax)(chicken 00:00:00 [place] [facility] pox[facility] Hep B, Adol or Pedi 1999-03-11 Completed [facility] of Dosage 00:00:00 [facility] MMR 1999-03-11 Completed [facility] 00:00:00 [facility] Varicella 1999-03-11 Completed [facility] (varivax)(chicken 00:00:00 [place] [facility] pox) [facility] Hep B, Adol or Pedi 1999-03-11 Completed [facility]ive [facility]ity of Dosage 00:00:00 [facility] MMR 1999-03-11 Completed [facility] 00:00:00 [facility] HIB 4 Dose Schedule 1999-01-10 Completed [facility]ive rsity of 00:00:00 [facility] HIB 4 Dose Schedule 1999-01-10 Completed Unive rsity of 00:00:00 [facility] HIB 4 Dose Schedule 1999-01-10 Completed Unive rsity of 00:00:00 [facility] HIB 4 Dose Schedule 1999-01-10 Completed Unive rsity of 00:00:00 [facility] HIB 4 Dose Schedule 1999-01-10 Completed Unive rsity of 00:00:00 [facility] HIB 4 Dose Schedule 1999-01-10 Completed Unive rsity of 00:00:00 [facility] HIB 4 Dose Schedule 1999-01-10 Completed Unive rsity of 00:00:00 [facility] HIB 4 Dose Schedule 1999-01-10 Completed Unive rsity of 00:00:00 [facility] HIB 4 Dose Schedule 1999-01-10 Completed Unive rsity of 00:00:00 [facility] HIB 4 Dose Schedule 1999-01-10 Completed [facility] 00:00:00 [facility] HIB 4 Dose Schedule 1999-01-10 Completed [facility] rsity of 00:00:00 [facility] HIB 4 Dose Schedule 1999-01-10 Completed [facility]ive rsity of 00:00:00 [facility] HIB 4 Dose Schedule 1999-01-10 Completed [facility]ive rs[facility] of 00:00:00 [facility] HIB 4 Dose Schedule 1999-01-10 Completed [facility] rs[facility] of 00:00:00 [facility] HIB 4 Dose Schedule 1999-01-10 Completed [facility] rs[facility] of 00:00:00 [facility] HIB 4 Dose Schedule 1999-01-10 Completed [facility] rs[facility] of 00:00:00 [facility] HIB 4 Dose Schedule 1999-01-10 Completed [facility]ive rsity of 00:00:00 [facility] HIB 4 Dose Schedule 1999-01-10 Completed Unive rsity of 00:00:00 [facility] HIB 4 Dose Schedule 1999-01-10 Completed [facility] rsity of 00:00:00 [facility] HIB 4 Dose Schedule 1999-01-10 Completed [facility] rsity of 00:00:00 [facility] HIB 4 Dose Schedule 1999-01-10 Completed [facility]ive rsity of 00:00:00 [facility] HIB 4 Dose Schedule 1999-01-10 Completed [facility] rsity of 00:00:00 [facility] HIB 4 Dose Schedule 1999-01-10 Completed [facility] rsity of 00:00:00 [facility] HIB 4 Dose Schedule 1999-01-10 Completed Unive rsity of 00:00:00 [facility] HIB 4 Dose Schedule 1999-01-10 Completed [facility]ive rsity of 00:00:00 [facility] HIB 4 Dose Schedule 1999-01-10 Completed [facility]ive rsity of 00:00:00 [facility] HIB 4 Dose Schedule 1999-01-10 Completed Unive rsity of 00:00:00 [facility] HIB 4 Dose Schedule 1999-01-10 Completed [facility] rsity of 00:00:00 [facility] HIB 4 Dose Schedule 1999-01-10 Completed [facility] rs[facility] of 00:00:00 [facility] HIB 4 Dose Schedule 1999-01-10 Completed [facility] rs[facility] of 00:00:00 [facility] HIB 4 Dose Schedule 1999-01-10 Completed [facility] rs[facility] of 00:00:00 [facility] HIB 4 Dose Schedule 1999-01-10 Completed [facility]ive rsity of 00:00:00 [facility] HIB 4 Dose Schedule 1999-01-10 Completed [facility]ive rsity of 00:00:00 [facility] HIB 4 Dose Schedule 1999-01-10 Completed [facility]ive rsity of 00:00:00 [facility] HIB 4 Dose Schedule 1999-01-10 Completed [facility]ive rsity of 00:00:00 [facility] HIB 4 Dose Schedule 1999-01-10 Completed [facility] rsity of 00:00:00 [facility] HIB 4 Dose Schedule 1999-01-10 Completed Unive rsity of 00:00:00 [facility] DTaP, Unspecified 1998 Completed Univers ity of Formulation 00:00:00 [facility] HIB 4 Dose Schedule 1998 Completed Un[facility]ity of 00:00:00 [facility] DTaP, Unspecified 1998 Completed Univers ity of Formulation 00:00:00 [facility] HIB 4 Dose Schedule 1998 Completed Unive rsity of 00:00:00 [facility] DTaP, Unspecified 1998 Completed Univers it[facility] of Formulation 00:00:00 [facility] HIB 4 Dose Schedule 1998 Completed Unive rsity of 00:00:00 [facility] DTaP, Unspecified 1998 Completed Univers [facility] of Formulation 00:00:00 [facility] HIB 4 Dose Schedule 1998 Completed Unive rsity of 00:00:00 [facility] DTaP, Unspecified 1998 Completed Univers [facility] Formulation 00:00:00 [facility] HIB 4 Dose Schedule 1998 Completed Unive rsity of 00:00:00 [facility] DTaP, Unspecified 1998 Completed [facility] of Formulation 00:00:00 [facility] HIB 4 Dose Schedule 1998 Completed [facility] rs[facility] of 00:00:00 [facility] DTaP, Unspecified 1998 Completed [facility] Formulation 00:00:00 [facility] HIB 4 Dose Schedule 1998 Completed [facility] of 00:00:00 [facility] DTaP, Unspecified 1998 Completed [facility] Formulation 00:00:00 [facility] HIB 4 Dose Schedule 1998 Completed Unive rsity of 00:00:00 [facility] DTaP, Unspecified 1998 Completed Univers ity of Formulation 00:00:00 [facility] HIB 4 Dose Schedule 1998 Completed Unive rsity of 00:00:00 [facility] DTaP, Unspecified 1998 Completed [facility] of Formulation 00:00:00 [facility] HIB 4 Dose Schedule 1998 Completed Unive rsity of 00:00:00 [facility] DTaP, Unspecified 1998 Completed [facility] of Formulation 00:00:00 [facility] HIB 4 Dose Schedule 1998 Completed Unive rsity of 00:00:00 [facility] DTaP, Unspecified 1998 Completed Univers [facility] of Formulation 00:00:00 [facility] HIB 4 Dose Schedule 1998 Completed Unive rsity of 00:00:00 [facility] DTaP, Unspecified 1998 Completed [facility] Formulation 00:00:00 [facility] HIB 4 Dose Schedule 1998 Completed Unive rsity of 00:00:00 [facility] DTaP, Unspecified 1998 Completed Univers it[facility] of Formulation 00:00:00 [facility] HIB 4 Dose Schedule 1998 Completed Unive rsity of 00:00:00 [facility] DTaP, Unspecified 1998 Completed Univers ity of Formulation 00:00:00 [facility] HIB 4 Dose Schedule 1998 Completed Unive rsity of 00:00:00 [facility] DTaP, Unspecified 1998 Completed Univers [facility] of Formulation 00:00:00 [facility] HIB 4 Dose Schedule 1998 Completed Unive rsity of 00:00:00 [facility] DTaP, Unspecified 1998 Completed Univers [facility] of Formulation 00:00:00 [facility] HIB 4 Dose Schedule 1998 Completed Unive rsity of 00:00:00 [facility] DTaP, Unspecified 1998 Completed Univers [facility] Formulation 00:00:00 [facility] HIB 4 Dose Schedule 1998 Completed Unive rsity of 00:00:00 [facility] [facility] DTaP, Unspecified 1998 Completed [facility] 00:00:00 [facility] HIB 4 Dose Schedule 1998 Completed [facility] 00:00:00 [facility] DTaP, Unspecified 1998 Completed [facility] 00[facility]00:00 [facility] HIB 4 Dose Schedule 1998 Completed [facility] 00:00:00 [facility] DTaP, Unspecified 1998 Completed [facility] 00:00:00 [facility] HIB 4 Dose Schedule 1998 Completed [facility] 00:00:00 [facility] DTaP, Unspecified 1998 Completed [facility] 00:00:00 [facility] HIB 4 Dose Schedule 1998 Completed [facility] 00:00:00 [facility] DTaP, Unspecified 1998 Completed [facility] 00:00:00 [facility] HIB 4 Dose Schedule 1998 Completed [facility] 00:00:00 [facility] DTaP, Unspecified 1998 Completed [facility] 00:00:00 [facility] HIB 4 Dose Schedule 1998 Completed [facility] 00:00:00 [facility] DTaP, Unspecified 1998 Completed [facility] 00:00:00 [facility] HIB 4 Dose Schedule 1998 Completed [facility] 00:00:00 [facility] DTaP, Unspecified 1998 Completed [facility] 00:00:00 [facility] HIB 4 Dose Schedule 1998 Completed [facility] 00:00:00 [facility] DTaP, Unspecified 1998 Completed [facility] 00:00:00 [facility] HIB 4 Dose Schedule 1998 Completed [facility] 00:00:00 [facility] DTaP, Unspecified 1998 Completed [facility] 00:00:00 [facility] HIB 4 Dose Schedule 1998 Completed [facility] 00:00:00 [facility] DTaP, Unspecified 1998 Completed [facility] 00:00:00 [facility] HIB 4 Dose Schedule 1998 Completed [facility] 00:00:00 [facility] DTaP, Unspecified 1998 Completed [facility] 00:00:00 [facility] HIB 4 Dose Schedule 1998 Completed [facility] 00:00:00 [facility] DTaP, Unspecified 1998 Completed [facility] 00:00:00 [facility] HIB 4 Dose Schedule 1998 Completed [facility] 00:00:00 [facility] DTaP, Unspecified 1998 Completed [facility] 00:00:00 [facility] HIB 4 Dose Schedule 1998 Completed [facility] 00:00:00 [facility] DTaP, Unspecified 1998 Completed [facility] 00:00:00 [facility] HIB 4 Dose Schedule 1998 Completed [facility] 00:00:00 [facility] DTaP, Unspecified 1998 Completed [facility] 00:00:00 [facility] HIB 4 Dose Schedule 1998 Completed [facility] 00:00:00 [facility] DTaP, Unspecified 1998 Completed [facility] 00:00:00 [facility] HIB 4 Dose Schedule 1998 Completed [facility] 00:00:00 [facility] DTaP, Unspecified 1998 Completed [facility] 00:00:00 [facility] HIB 4 Dose Schedule 1998 Completed [facility] 00:00:00 [facility] DTaP, Unspecified 1998 Completed [facility] 00:00:00 [facility] HIB 4 Dose Schedule 1998 Completed [facility] 00:00:00 [facility] DTaP, Unspecified 1998 Completed [facility] 00:00:00 [facility] Hep B, Adol or Pedi 1998 Completed [facility] Dosage 00:00:00 [facility] HIB 4 Dose Schedule 1998 Completed [facility] 00:00:00 [facility] IPV 1998 Completed [facility] 00:00:00 [facility] DTaP, Unspecified 1998 Completed [facility] 00:00:00 [facility] Hep B, Adol or Pedi 1998 Completed [facility] Dosage 00:00:00 [facility] HIB 4 Dose Schedule 1998 Completed [facility] 00:00:00 [facility] IPV 1998 Completed [facility] 00:00:00 [facility] DTaP, Unspecified 1998 Completed [facility] 00:00:00 [facility] Hep B, Adol or Pedi 1998 Completed [facility] Dosage 00:00:00 [facility] HIB 4 Dose Schedule 1998 Completed [facility] 00:00:00 [facility] IPV 1998 Completed [facility] 00:00:00 [facility] DTaP, Unspecified 1998 Completed [facility] 00:00:00 [facility] Hep B, Adol or Pedi 1998 Completed [facility] Dosage 00:00:00 [facility] HIB 4 Dose Schedule 1998 Completed [facility] 00:00:00 [facility] IPV 1998 Completed [facility] 00:00:00 [facility] DTaP, Unspecified 1998 Completed [facility] 00:00:00 [facility] Hep B, Adol or Pedi 1998 Completed [facility] Dosage 00:00:00 [facility] HIB 4 Dose Schedule 1998 Completed [facility] 00:00:00 [facility] IPV 1998 Completed [facility] 00:00:00 [facility] DTaP, Unspecified 1998 Completed [facility] 00:00:00 [facility] Hep B, Adol or Pedi 1998 Completed [facility] Dosage 00:00:00 [facility] HIB 4 Dose Schedule 1998 Completed [facility] 00:00:00 [facility] IPV 1998 Completed [facility] 00:00:00 [facility] DTaP, Unspecified 1998 Completed [facility] 00:00:00 [facility] Hep B, Adol or Pedi 1998 Completed [facility] Dosage 00:00:00 [facility] HIB 4 Dose Schedule 1998 Completed [facility] 00:00:00 [facility] IPV 1998 Completed [facility] 00:00:00 [facility] DTaP, Unspecified 1998 Completed [facility] 00:00:00 [facility] Hep B, Adol or Pedi 1998 Completed [facility] Dosage 00:00:00 [facility] HIB 4 Dose Schedule 1998 Completed [facility] 00:00:00 [facility] IPV 1998 Completed [facility] 00:00:00 [facility] DTaP, Unspecified 1998 Completed [facility] 00:00:00 [facility] Hep B, Adol or Pedi 1998 Completed [facility] Dosage 00:00:00 [facility] HIB 4 Dose Schedule 1998 Completed [facility] 00:00:00 [facility] IPV 1998 Completed [facility] 00:00:00 [facility] DTaP, Unspecified 1998 Completed [facility] 00:00:00 [facility] Hep B, Adol or Pedi 1998 Completed [facility] Dosage 00:00:00 [facility] HIB 4 Dose Schedule 1998 Completed [facility] 00:00:00 [facility] IPV 1998 Completed [facility] 00:00:00 [facility] DTaP, Unspecified 1998 Completed [facility] 00:00:00 [facility] Hep B, Adol or Pedi 1998 Completed [facility] Dosage 00:00:00 [facility] HIB 4 Dose Schedule 1998 Completed [facility] 00:00:00 [facility] IPV 1998 Completed [facility] 00:00:00 [facility] DTaP, Unspecified 1998 Completed [facility] 00:00:00 [facility] Hep B, Adol or Pedi 1998 Completed [facility] Dosage 00:00:00 [facility] HIB 4 Dose Schedule 1998 Completed [facility] 00:00:00 [facility] IPV 1998 Completed [facility] 00:00:00 [facility] DTaP, Unspecified 1998 Completed [facility] 00:00:00 [facility] Hep B, Adol or Pedi 1998 Completed [facility] Dosage 00:00:00 [facility] HIB 4 Dose Schedule 1998 Completed [facility] 00:00:00 [facility] IPV 1998 Completed [facility] 00:00:00 [facility] DTaP, Unspecified 1998 Completed [facility] 00:00:00 [facility] Hep B, Adol or Pedi 1998 Completed [facility] Dosage 00:00:00 [facility] HIB 4 Dose Schedule 1998 Completed [facility] 00:00:00 [facility] IPV 1998 Completed [facility] 00:00:00 [facility] DTaP, Unspecified 1998 Completed [facility] 00:00:00 [facility] Hep B, Adol or Pedi 1998 Completed [facility] Dosage 00:00:00 [facility] HIB 4 Dose Schedule 1998 Completed [facility] 00:00:00 [facility] IPV 1998 Completed [facility] 00:00:00 [facility] DTaP, Unspecified 1998 Completed [facility] 00:00:00 [facility] Hep B, Adol or Pedi 1998 Completed [facility] Dosage 00:00:00 [facility] HIB 4 Dose Schedule 1998 Completed [facility] 00:00:00 [facility] IPV 1998 Completed [facility] 00:00:00 [facility] DTaP, Unspecified 1998 Completed [facility] 00:00:00 [facility] Hep B, Adol or Pedi 1998 Completed [facility] Dosage 00:00:00 [facility] HIB 4 Dose Schedule 1998 Completed [facility] 00:00:00 [facility] IPV 1998 Completed [facility] 00:00:00 [facility] DTaP, Unspecified 1998 Completed [facility] 00:00:00 [facility] Hep B, Adol or Pedi 1998 Completed [facility] Dosage 00:00:00 [facility] HIB 4 Dose Schedule 1998 Completed [facility] 00:00:00 [facility] IPV 1998 Completed [facility] 00:00:00 [facility] DTaP, Unspecified 1998 Completed [facility] 00:00:00 [facility] Hep B, Adol or Pedi 1998 Completed [facility] Dosage 00:00:00 [facility] HIB 4 Dose Schedule 1998 Completed [facility] 00:00:00 [facility] IPV 1998 Completed [facility] 00:00:00 [facility] DTaP, Unspecified 1998 Completed [facility] 00:00:00 [facility] Hep B, Adol or Pedi 1998 Completed [facility] Dosage 00:00:00 [facility] HIB 4 Dose Schedule 1998 Completed [facility] 00:00:00 [facility] IPV 1998 Completed [facility] 00:00:00 [facility] DTaP, Unspecified 1998 Completed [facility] 00:00:00 [facility] Hep B, Adol or Pedi 1998 Completed [facility] Dosage 00:00:00 [facility] HIB 4 Dose Schedule 1998 Completed [facility] 00:00:00 [facility] IPV 1998 Completed [facility] 00:00:00 [facility] DTaP, Unspecified 1998 Completed [facility] 00:00:00 [facility] Hep B, Adol or Pedi 1998 Completed [facility] Dosage 00:00:00 [facility] HIB 4 Dose Schedule 1998 Completed [facility] 00:00:00 [facility] IPV 1998 Completed [facility] 00:00:00 [facility] DTaP, Unspecified 1998 Completed [facility] 00:00:00 [facility] Hep B, Adol or Pedi 1998 Completed [facility] Dosage 00:00:00 [facility] HIB 4 Dose Schedule 1998 Completed [facility] 00:00:00 [facility] IPV 1998 Completed [facility] 00:00:00 [facility] DTaP, Unspecified 1998 Completed [facility] 00:00:00 [facility] Hep B, Adol or Pedi 1998 Completed [facility] Dosage 00:00:00 [facility] HIB 4 Dose Schedule 1998 Completed [facility] 00:00:00 [facility] IPV 1998 Completed [facility] 00:00:00 [facility] DTaP, Unspecified 1998 Completed [facility] 00:00:00 [facility] Hep B, Adol or Pedi 1998 Completed [facility] Dosage 00:00:00 [facility] HIB 4 Dose Schedule 1998 Completed [facility] 00:00:00 [facility] IPV 1998 Completed [facility] 00:00:00 [facility] DTaP, Unspecified 1998 Completed [facility] 00:00:00 [facility] Hep B, Adol or Pedi 1998 Completed [facility] Dosage 00:00:00 [facility] HIB 4 Dose Schedule 1998 Completed [facility] 00:00:00 [facility] IPV 1998 Completed [facility] 00:00:00 [facility] DTaP, Unspecified 1998 Completed [facility] 00:00:00 [facility] Hep B, Adol or Pedi 1998 Completed [facility] Dosage 00:00:00 [facility] HIB 4 Dose Schedule 1998 Completed [facility] 00:00:00 [facility] IPV 1998 Completed [facility] 00:00:00 [facility] DTaP, Unspecified 1998 Completed [facility] 00:00:00 [facility] Hep B, Adol or Pedi 1998 Completed [facility] Dosage 00:00:00 [facility] HIB 4 Dose Schedule 1998 Completed [facility] 00:00:00 [facility] IPV 1998 Completed [facility] 00:00:00 [facility] DTaP, Unspecified 1998 Completed [facility] Form[facility] 00:00:00 [facility] Hep B, Adol or Pedi 1998 Completed [facility] Dosage 00:00:00 [facility] HIB 4 Dose Schedule 1998 Completed [facility] 00:00:00 [facility] IPV 1998 Completed [facility] 00:00:00 [facility] DTaP, Unspecified 1998 Completed [facility] Form[facility] 00:00:00 [facility] Hep B, Adol or Pedi 1998 Completed [facility] Dosage 00:00:00 [facility] HIB 4 Dose Schedule 1998 Completed [facility] 00:00:00 [facility] IPV 1998 Completed [facility] 00:00:00 [facility] DTaP, Unspecified 1998 Completed [facility] Form[facility] 00:00:00 [facility] Hep B, Adol or Pedi 1998 Completed [facility] Dosage 00:00:00 [facility] HIB 4 Dose Schedule 1998 Completed [facility] 00:00:00 [facility] IPV 1998 Completed [facility] 00:00:00 [facility] DTaP, Unspecified 1998 Completed [facility] 00:00:00 [facility] Hep B, Adol or Pedi 1998 Completed [facility] Dosage 00:00:00 [facility] HIB 4 Dose Schedule 1998 Completed [facility] 00:00:00 [facility] IPV 1998 Completed [facility] 00:00:00 [facility] DTaP, Unspecified 1998 Completed [facility] Form[facility] 00:00:00 [facility] Hep B, Adol or Pedi 1998 Completed [facility] Dosage 00:00:00 [facility] HIB 4 Dose Schedule 1998 Completed [facility] 00:00:00 [facility] IPV 1998 Completed [facility] 00:00:00 [facility] DTaP, Unspecified 1998 Completed [facility] 00:00:00 [facility] Hep B, Adol or Pedi 1998 Completed [facility] Dosage 00:00:00 [facility] HIB 4 Dose Schedule 1998 Completed [facility] 00:00:00 [facility] IPV 1998 Completed [facility] 00:00:00 [facility] DTaP, Unspecified 1998 Completed [facility] Form[facility] 00:00:00 [facility] Hep B, Adol or Pedi 1998 Completed [facility] Dosage 00:00:00 [facility] HIB 4 Dose Schedule 1998 Completed [facility] 00:00:00 [facility] IPV 1998 Completed [facility] 00:00:00 [facility] DTaP, Unspecified 1998 Completed [facility] 00:00:00 [facility] Hep B, Adol or Pedi 1998 Completed [facility] Dosage 00:00:00 [facility] HIB 4 Dose Schedule 1998 Completed [facility] 00:00:00 [facility] IPV 1998 Completed [facility] 00:00:00 [facility] DTaP, Unspecified 1998 Completed [facility] Form[facility] 00:00:00 [facility] Hep B, Adol or Pedi 1998 Completed [facility] Dosage 00:00:00 [facility] HIB 4 Dose Schedule 1998 Completed [facility] 00:00:00 [facility] IPV 1998 Completed [facility] 00:00:00 [facility] DTaP, Unspecified 1998 Completed [facility] Form[facility] 00:00:00 [facility] IPV 1998 Completed [facility] 00:00:00 [facility] DTaP, Unspecified 1998 Completed [facility] Formulation 00:00:00 [facility] IPV 1998 Completed [facility] 00:00:00 [facility] DTaP, Unspecified 1998 Completed [facility] Formulation 00:00:00 [facility] IPV 1998 Completed [facility] 00:00:00 [facility] DTaP, Unspecified 1998 Completed [facility] Formulation 00:00:00 [facility] IPV 1998 Completed [facility] 00:00:00 [facility] DTaP, Unspecified 1998 Completed [facility] Form[facility] 00:00:00 [facility] IPV 1998 Completed [facility] 00:00:00 [facility] DTaP, Unspecified 1998 Completed [facility] Form[facility] 00:00:00 [facility] IPV 1998 Completed [facility] 00:00:00 [facility] DTaP, Unspecified 1998 Completed [facility] Formulation 00:00:00 [facility] IPV 1998 Completed [facility] 00:00:00 [facility] DTaP, Unspecified 1998 Completed [facility] Formulation 00:00:00 [facility] IPV 1998 Completed [facility] 00:00:00 [facility] DTaP, Unspecified 1998 Completed [facility] Formulation 00:00:00 [facility] IPV 1998 Completed [facility] 00:00:00 [facility] DTaP, Unspecified 1998 Completed [facility] Formulation 00:00:00 [facility] IPV 1998 Completed [facility] 00:00:00 [facility] DTaP, Unspecified 1998 Completed [facility] Formulation 00:00:00 [facility] IPV 1998 Completed [facility] 00:00:00 [facility] DTaP, Unspecified 1998 Completed [facility] Formulation 00:00:00 [facility] IPV 1998 Completed [facility] 00:00:00 [facility] DTaP, Unspecified 1998 Completed [facility] Formulation 00:00:00 [facility] IPV 1998 Completed [facility] 00:00:00 [facility] DTaP, Unspecified 1998 Completed [facility] Formulation 00:00:00 [facility] IPV 1998 Completed [facility] 00:00:00 [facility] DTaP, Unspecified 1998 Completed [facility] Formulation 00:00:00 [facility] IPV 1998 Completed [facility] 00:00:00 [facility] DTaP, Unspecified 1998 Completed [facility] Formulation 00:00:00 [facility] IPV 1998 Completed [facility] 00:00:00 [facility] DTaP, Unspecified 1998 Completed [facility] Formulation 00:00:00 [facility] IPV 1998 Completed [facility] 00:00:00 [facility] DTaP, Unspecified 1998 Completed [facility] Formulation 00:00:00 [facility] IPV 1998 Completed [facility] 00:00:00 [facility] DTaP, Unspecified 1998 Completed [facility] Formulation 00:00:00 [facility] IPV 1998 Completed [facility] 00:00:00 [facility] DTaP, Unspecified 1998 Completed [facility] Formulation 00:00:00 [facility] IPV 1998 Completed [facility] 00:00:00 [facility] DTaP, Unspecified 1998 Completed [facility] Formulation 00:00:00 [facility] IPV 1998 Completed [facility] 00:00:00 [facility] DTaP, Unspecified 1998 Completed [facility] Formulation 00:00:00 [facility] IPV 1998 Completed [facility] 00:00:00 [facility] DTaP, Unspecified 1998 Completed [facility] Form[facility] 00:00:00 [facility] IPV 1998 Completed [facility] 00:00:00 [facility] DTaP, Unspecified 1998 Completed [facility] Formulation 00:00:00 [facility] IPV 1998 Completed [facility] 00:00:00 [facility] DTaP, Unspecified 1998 Completed [facility] Formulation 00:00:00 [facility] IPV 1998 Completed [facility] 00:00:00 [facility] DTaP, Unspecified 1998 Completed [facility] Formulation 00:00:00 [facility] IPV 1998 Completed [facility] 00:00:00 [facility] DTaP, Unspecified 1998 Completed [facility] Formulation 00:00:00 [facility] IPV 1998 Completed [facility] 00:00:00 [facility] DTaP, Unspecified 1998 Completed [facility] Formulation 00:00:00 [facility] IPV 1998 Completed [facility] 00:00:00 [facility] DTaP, Unspecified 1998 Completed [facility] Formulation 00:00:00 [facility] IPV 1998 Completed [facility] 00:00:00 [facility] DTaP, Unspecified 1998 Completed [facility] Formulation 00:00:00 [facility] IPV 1998 Completed [facility] 00:00:00 [facility] DTaP, Unspecified 1998 Completed [facility] Formulation 00:00:00 [facility] IPV 1998 Completed [facility] 00:00:00 [facility] DTaP, Unspecified 1998 Completed [facility] Formulation 00:00:00 [facility] IPV 1998 Completed [facility] 00:00:00 [facility] DTaP, Unspecified 1998 Completed [facility] Formulation 00:00:00 [facility] IPV 1998 Completed [facility] 00:00:00 [facility] DTaP, Unspecified 1998 Completed [facility] Formulation 00:00:00 [facility] IPV 1998 Completed [facility] 00:00:00 [facility] DTaP, Unspecified 1998 Completed [facility] Form[facility] 00:00:00 [facility] IPV 1998 Completed [facility] 00:00:00 [facility] DTaP, Unspecified 1998 Completed [facility] Formulation 00:00:00 [facility] IPV 1998 Completed [facility] 00:00:00 [facility] DTaP, Unspecified 1998 Completed [facility] Formulation 00:00:00 [facility] IPV 1998 Completed [facility] 00:00:00 [facility] Hep B, Adol or Pedi 1998 Completed [facility] Dosage 00:00:00 [facility] Hep B, Adol or Pedi 1998 Completed [facility] Dosage 00:00:00 [facility] Hep B, Adol or Pedi 1998 Completed [facility] Dosage 00:00:00 [facility] Hep B, Adol or Pedi 1998 Completed [facility] Dosage 00:00:00 [facility] Hep B, Adol or Pedi 1998 Completed [facility] Dosage 00:00:00 [facility] Hep B, Adol or Pedi 1998 Completed [facility] Dosage 00:00:00 [facility] Hep B, Adol or Pedi 1998 Completed [facility] Dosage 00:00:00 [facility] Hep B, Adol or Pedi 1998 Completed [facility] Dosage 00:00:00 [facility] Hep B, Adol or Pedi 1998 Completed [facility] Dosage 00:00:00 [facility] Hep B, Adol or Pedi 1998 Completed [facility] Dosage 00:00:00 [facility] Hep B, Adol or Pedi 1998 Completed [facility] Dosage 00:00:00 [facility] Hep B, Adol or Pedi 1998 Completed [facility] Dosage 00:00:00 [facility] Hep B, Adol or Pedi 1998 Completed [facility] Dosage 00:00:00 [facility] Hep B, Adol or Pedi 1998 Completed [facility] Dosage 00:00:00 [facility] Hep B, Adol or Pedi 1998 Completed [facility] Dosage 00:00:00 [facility] Hep B, Adol or Pedi 1998 Completed [facility] rsity of Dosage 00:00:00 [facility] Hep B, Adol or Pedi 1998 Completed Unive rsity of Dosage 00:00:00 [facility] Hep B, Adol or Pedi 1998 Completed Unive [facility] of Dosage 00:00:00 [facility] Hep B, Adol or Pedi 1998 Completed Unive rsity of Dosage 00:00:00 [facility] Hep B, Adol or Pedi 1998 Completed Unive rsity of Dosage 00:00:00 [facility] Hep B, Adol or Pedi 1998 Completed Unive rsity of Dosage 00:00:00 [facility] Hep B, Adol or Pedi 1998 Completed Unive rsity of Dosage 00:00:00 [facility] Hep B, Adol or Pedi 1998 Completed Unive rsity of Dosage 00:00:00 [facility] Hep B, Adol or Pedi 1998 Completed Unive rsity of Dosage 00:00:00 [facility] Hep B, Adol or Pedi 1998 Completed Unive rsity of Dosage 00:00:00 [facility] Hep B, Adol or Pedi 1998 Completed Unive rsity of Dosage 00:00:00 [facility] Hep B, Adol or Pedi 1998 Completed Unive rsity of Dosage 00:00:00 [facility] Hep B, Adol or Pedi 1998 Completed Unive rsity of Dosage 00:00:00 [facility] Hep B, Adol or Pedi 1998 Completed Unive rsity of Dosage 00:00:00 [facility] Hep B, Adol or Pedi 1998 Completed Unive rsity of Dosage 00:00:00 [facility] Hep B, Adol or Pedi 1998 Completed Unive rsity of Dosage 00:00:00 [facility] Hep B, Adol or Pedi 1998 Completed Un[facility] of Dosage 00:00:00 [facility] Hep B, Adol or Pedi 1998 Completed Unive rsity of Dosage 00:00:00 [facility] Hep B, Adol or Pedi 1998 Completed Unive rsity of Dosage 00:00:00 [facility] Hep B, Adol or Pedi 1998 Completed Unive rsity of Dosage 00:00:00 [facility] Hep B, Adol or Pedi 1998 Completed Unive [facility] of Dosage 00:00:00 [facility] Hep B, Adol or Pedi 1998 Completed Unive rsity of Dosage 00:00:00 [facility] Vital Signs Vital Name Observation Time Observation Value Comments Source Systolic blood 2022-08-29 13:00:00 108 mm[Hg] Univer sity of pressure [facility] Diastolic blood 2022-08-29 13:00:00 66 mm[Hg] Unive rsity of pressure [facility] Heart rate 2022-08-29 13:00:00 77 /min [facility] Body temperature 2022-08-29 13:00:00 36.06 Leigh [facility] ersity [facility] Respiratory rate 2022-08-29 13:00:00 18 /min [facility] 2022-08-29 13:00:00 99 /min [facility] Arterial blood by [facility] Pulse oximetry Branch Body height 2022-08-26 19:36:00 165.1 cm [facility] Body weight 2022-08-26 19:36:00 83.519 kg [facility] BMI 2022-08-26 19:36:00 30.64 kg/m2 [facility] Systolic blood 2022-08-25 18:41:00 123 mm[Hg] Univer sity of pressure [facility] Diastolic blood 2022-08-25 18:41:00 84 mm[Hg] Unive rsity of pressure [facility] Heart rate 2022-08-25 18:41:00 85 /min [facility] Body temperature 2022-08-25 18:41:00 36.5 Leigh [facility] Respiratory rate 2022-08-25 18:41:00 16 /min [facility] Body height 2022-08-25 18:41:00 165.1 cm [facility] Body weight 2022-08-25 18:41:00 83.519 kg [facility] BMI 2022-08-25 18:41:00 30.64 kg/m2 [facility] Systolic blood 2022-08-20 13:19:00 125 mm[Hg] Univer sity of pressure [facility] Diastolic blood 2022-08-20 13:19:00 85 mm[Hg] Unive rsity of pressure [facility] Heart rate 2022-08-20 13:19:00 81 /min [facility] Body temperature 2022-08-20 13:19:00 36.39 Leigh [facility] Respiratory rate 2022-08-20 13:19:00 18 /min Univ [facility] Body height 2022-08-20 13:19:00 165.1 cm [facility] Body weight 2022-08-20 13:19:00 82.158 kg [facility] BMI 2022-08-20 13:19:00 30.14 kg/m2 [facility] Systolic blood 2022-08-17 20:01:00 125 mm[Hg] Univer sity of pressure [facility] Diastolic blood 2022-08-17 20:01:00 83 mm[Hg] Unive rsity of pressure [facility] Heart rate 2022-08-17 20:01:00 88 /min [facility] Body temperature 2022-08-17 20:01:00 36.28 Leigh [facility] Respiratory rate 2022-08-17 20:01:00 18 /min Univ [facility] Body height 2022-08-17 20:01:00 165.1 cm [facility] Body weight 2022-08-17 20:01:00 83.008 kg [facility] BMI 2022-08-17 20:01:00 30.45 kg/m2 [facility]i ty of [facility] Oxygen saturation in 2022-08-17 20:01:00 98 /min [facility] Arterial blood by [facility] Pulse oximetry Branch Systolic blood 2022-08-13 14:54:00 122 mm[Hg] [facility]ity of [facility] Diastolic blood 2022-08-13 14:54:00 80 mm[Hg] Unive rsity of pressure [facility] Heart rate 2022-08-13 14:54:00 83 /min [facility] Body temperature 2022-08-13 14:54:00 36.22 Leigh [facility] Respiratory rate 2022-08-13 14:54:00 16 /min Univ [facility] Body height 2022-08-13 14:54:00 165.1 cm [facility] Body weight 2022-08-13 14:54:00 81.676 kg [facility] BMI 2022-08-13 14:54:00 29.96 kg/m2 [facility] Systolic blood 2022-08-10 19:31:00 129 mm[Hg] Univer sity of pressure [facility] Diastolic blood 2022-08-10 19:31:00 85 mm[Hg] Unive rsity of pressure [facility] Heart rate 2022-08-10 19:31:00 86 /min [facility] Body temperature 2022-08-10 19:31:00 36.28 Leigh [facility] Respiratory rate 2022-08-10 19:31:00 18 /min Univ [facility] Body height 2022-08-10 19:31:00 165.1 cm [facility] Body weight 2022-08-10 19:31:00 81.874 kg [facility] BMI 2022-08-10 19:31:00 30.04 kg/m2 [facility] Systolic blood 2022-08-04 19:31:00 123 mm[Hg] Univer sity of pressure [facility] Diastolic blood 2022-08-04 19:31:00 81 mm[Hg] Unive rsity of pressure [facility] Heart rate 2022-08-04 19:31:00 97 /min [facility] Body temperature 2022-08-04 19:31:00 36.56 Leigh [facility] Respiratory rate 2022-08-04 19:31:00 18 /min Univ [facility] Body height 2022-08-04 19:31:00 165.1 cm [facility] Body weight 2022-08-04 19:31:00 81.392 kg [facility] BMI 2022-08-04 19:31:00 29.86 kg/m2 [facility] Systolic blood 2022-07-31 17:53:00 115 mm[Hg] Univer sity of pressure [facility] Diastolic blood 2022-07-31 17:53:00 74 mm[Hg] Unive rsity of pressure [facility] Heart rate 2022-07-31 17:53:00 83 /min [facility] Body temperature 2022-07-31 17:53:00 36.39 Leigh [facility] Respiratory rate 2022-07-31 17:53:00 18 /min Univ [facility] Body height 2022-07-31 17:53:00 165.1 cm [facility] Body weight 2022-07-31 17:53:00 81.557 kg [facility] BMI 2022-07-31 17:53:00 29.92 kg/m2 [facility] Systolic blood 2022-07-23 14:53:00 122 mm[Hg] Univer sity of pressure [facility] Diastolic blood 2022-07-23 14:53:00 79 mm[Hg] Unive rsity of pressure [facility] Heart rate 2022-07-23 14:53:00 89 /min [facility] Body temperature 2022-07-23 14:53:00 35.94 Leigh [facility] Respiratory rate 2022-07-23 14:53:00 18 /min Univ [facility] Body height 2022-07-23 14:53:00 165.1 cm [facility] Body weight 2022-07-23 14:53:00 79.89 kg [facility] BMI 2022-07-23 14:53:00 29.31 kg/m2 [facility] Systolic blood 2022-07-20 19:11:00 139 mm[Hg] Univer sity of pressure [facility] Diastolic blood 2022-07-20 19:11:00 88 mm[Hg] Unive rsity of pressure [facility] Heart rate 2022-07-20 19:11:00 104 /min [facility] Body temperature 2022-07-20 19:05:00 36.33 Leigh [facility] Respiratory rate 2022-07-20 19:05:00 18 /min Univ [facility] Body height 2022-07-20 19:05:00 165.1 cm [facility] Body weight 2022-07-20 19:05:00 79.975 kg [facility] BMI 2022-07-20 19:05:00 29.34 kg/m2 [facility] Systolic blood 2022-07-16 14:40:00 120 mm[Hg] Univer sity of pressure [facility] Diastolic blood 2022-07-16 14:40:00 83 mm[Hg] Unive rsity of pressure [facility] Heart rate 2022-07-16 14:40:00 99 /min [facility] Body temperature 2022-07-16 14:40:00 36.11 Leigh [facility] Respiratory rate 2022-07-16 14:40:00 17 /min Univ ersity [facility] Body height 2022-07-16 14:40:00 165.1 cm [facility] Body weight 2022-07-16 14:40:00 79.493 kg [facility] BMI 2022-07-16 14:40:00 29.16 kg/m2 [facility] Systolic blood 2022-07-15 19:45:00 119 mm[Hg] Univer sity of pressure [facility] Diastolic blood 2022-07-15 19:45:00 70 mm[Hg] Unive rsity of pressure [facility] Heart rate 2022-07-15 19:45:00 82 /min [facility] Body temperature 2022-07-15 19:45:00 36.78 Leigh Univ ersity of [facility] Respiratory rate 2022-07-15 19:45:00 18 /min Univ ersity of [facility] Oxygen saturation in 2022-07-15 19:45:00 99 /min University of Arterial blood by [facility] Pulse oximetry Branch Body height 2022-07-15 16:51:00 165.1 cm [facility] Body weight 2022-07-15 16:51:00 80.06 kg [facility] BMI 2022-07-15 16:51:00 29.37 kg/m2 [facility] Systolic blood 2022-07-10 14:01:00 129 mm[Hg] Univer sity of pressure [facility] Diastolic blood 2022-07-10 14:01:00 87 mm[Hg] Unive rsity of pressure [facility] Heart rate 2022-07-10 14:01:00 89 /min [facility] Body temperature 2022-07-10 14:01:00 36.17 Leigh Univ ersity of [facility] Respiratory rate 2022-07-10 14:01:00 18 /min Univ ersity of [facility] Body height 2022-07-10 14:01:00 165.1 cm [facility] Body weight 2022-07-10 14:01:00 79.946 kg [facility] BMI 2022-07-10 14:01:00 29.33 kg/m2 [facility]i ty of [facility] Systolic blood 2022-07-08 14:25:00 115 mm[Hg] Univer sity of pressure [facility] Diastolic blood 2022-07-08 14:25:00 72 mm[Hg] Unive rsity of pressure [facility] Heart rate 2022-07-08 14:25:00 77 /min [facility] Body temperature 2022-07-08 14:25:00 36.17 Leigh Univ [facility] Respiratory rate 2022-07-08 14:25:00 18 /min Univ ersity of [facility] Body height 2022-07-08 14:25:00 165.1 cm [facility] Body weight 2022-07-08 14:25:00 77.735 kg [facility] BMI 2022-07-08 14:25:00 28.52 kg/m2 [facility] Systolic blood 2022-06-24 15:23:00 124 mm[Hg] Univer sity of pressure [facility] Diastolic blood 2022-06-24 15:23:00 90 mm[Hg] Unive rsity of pressure [facility] Heart rate 2022-06-24 15:23:00 95 /min [facility] Body temperature 2022-06-24 15:23:00 35.67 Leigh [facility] Respiratory rate 2022-06-24 15:23:00 18 /min Univ ersity of [facility] Body height 2022-06-24 15:23:00 165.1 cm [facility] Body weight 2022-06-24 15:23:00 78.104 kg [facility] BMI 2022-06-24 15:23:00 28.65 kg/m2 [facility] Systolic blood 2022-06-10 21:11:00 128 mm[Hg] Univer sity of pressure [facility] Diastolic blood 2022-06-10 21:11:00 84 mm[Hg] Unive rsity of pressure [facility] Heart rate 2022-06-10 21:11:00 104 /min [facility] Body temperature 2022-06-10 21:11:00 35.89 Leigh [facility] Respiratory rate 2022-06-10 21:11:00 18 /min Univ ersity of [facility] Body height 2022-06-10 21:11:00 165.1 cm [facility] Body weight 2022-06-10 21:11:00 74.844 kg [facility] BMI 2022-06-10 21:11:00 27.46 kg/m2 [facility] Systolic blood 2022-06-05 18:26:00 118 mm[Hg] Univer sity of pressure [facility] Diastolic blood 2022-06-05 18:26:00 68 mm[Hg] Unive rsity of pressure [facility] Heart rate 2022-06-05 18:26:00 111 /min [facility] Body temperature 2022-06-05 18:26:00 37 Leigh [facility] Respiratory rate 2022-06-05 18:26:00 20 /min Univ ersity of [facility] Body weight 2022-06-05 18:26:00 72.576 kg [facility] BMI 2022-06-05 18:26:00 26.63 kg/m2 [facility] Oxygen saturation in 2022-06-05 18:26:00 99 /min University of Arterial blood by [facility] Pulse oximetry Branch Heart rate 2022-05-30 21:15:00 89 /min [facility] Oxygen saturation in 2022-05-30 21:15:00 100 /min University of Arterial blood by [facility] Pulse oximetry Branch Systolic blood 2022-05-30 19:21:00 124 mm[Hg] Univer sity of pressure [facility] Diastolic blood 2022-05-30 19:21:00 78 mm[Hg] Unive rsity of pressure [facility] Body temperature 2022-05-30 19:21:00 37.06 Leigh [facility] Respiratory rate 2022-05-30 19:21:00 18 /min Univ ersity of [facility] BMI 2022-05-30 19:05:00 26.96 kg/m2 [facility] Body weight 2022-05-30 19:05:00 73.483 kg [facility] Systolic blood 2022-05-20 12:55:00 117 mm[Hg] Univer sity of pressure [facility] Diastolic blood 2022-05-20 12:55:00 82 mm[Hg] Unive rsity of pressure [facility] Heart rate 2022-05-20 12:55:00 85 /min Universi ty of [facility] Body temperature 2022-05-20 12:55:00 36.39 Leigh Univ ersity of [facility] Respiratory rate 2022-05-20 12:55:00 20 /min Univ ersity of [facility] Body height 2022-05-20 12:55:00 165.1 cm [facility]i ty of [facility] Body weight 2022-05-20 12:55:00 73.755 kg [facility] BMI 2022-05-20 12:55:00 27.06 kg/m2 Universi ty of [facility] Heart rate 2022-04-21 05:30:00 76 /min [facility]i ty of [facility] Oxygen saturation in 2022-04-21 05:30:00 100 /min University Arterial blood by [facility] Pulse oximetry Branch Systolic blood 2022-04-21 05:00:00 115 mm[Hg] Univer sity of pressure [facility] Diastolic blood 2022-04-21 05:00:00 76 mm[Hg] Unive rsity of [facility] Body temperature 2022-04-21 05:00:00 36.61 Leigh Univ ersity of [facility] Respiratory rate 2022-04-21 05:00:00 18 /min Univ ersity of [facility] Body height 2022-04-21 05:00:00 165.1 cm [facility] Body weight 2022-04-21 05:00:00 72.122 kg [facility] BMI 2022-04-21 05:00:00 26.46 kg/m2 Universi ty of [facility] Systolic blood 2022-04-16 16:47:00 108 mm[Hg] Univer sity of pressure [facility] Diastolic blood 2022-04-16 16:47:00 73 mm[Hg] Unive rsity of pressure [facility] Heart rate 2022-04-16 16:47:00 67 /min [facility]i ty of [facility] Body temperature 2022-04-16 16:47:00 36.89 Leigh [facility] Respiratory rate 2022-04-16 16:47:00 17 /min Univ [facility]ity [facility] Body height 2022-04-16 16:47:00 165.1 cm [facility] Body weight 2022-04-16 16:47:00 72.213 kg [facility] BMI 2022-04-16 16:47:00 26.49 kg/m2 [facility] Systolic blood 2022-03-19 20:31:00 114 mm[Hg] Univer sity of pressure [facility] Diastolic blood 2022-03-19 20:31:00 77 mm[Hg] Unive rsity of pressure [facility] Heart rate 2022-03-19 20:31:00 81 /min [facility] Body temperature 2022-03-19 20:31:00 36.56 Leigh [facility] Respiratory rate 2022-03-19 20:31:00 18 /min Univ [facility]ity [facility] Body height 2022-03-19 20:31:00 165.1 cm [facility] Body weight 2022-03-19 20:31:00 70.035 kg [facility] BMI 2022-03-19 20:31:00 25.69 kg/m2 [facility] Systolic blood 2022-02-24 20:07:00 138 mm[Hg] Univer sity of pressure [facility] Diastolic blood 2022-02-24 20:07:00 87 mm[Hg] Unive rsity of pressure [facility] Heart rate 2022-02-24 20:07:00 95 /min [facility] Body temperature 2022-02-24 20:07:00 36.72 Leigh [facility] Respiratory rate 2022-02-24 20:07:00 18 /min Univ [facility]ity [facility] Body height 2022-02-24 20:07:00 165.1 cm [facility] Body weight 2022-02-24 20:07:00 68.068 kg [facility] BMI 2022-02-24 20:07:00 24.97 kg/m2 [facility] Systolic blood 2022-01-17 16:46:00 128 mm[Hg] Univer sity of pressure [facility] Diastolic blood 2022-01-17 16:46:00 87 mm[Hg] Unive rsity of pressure [facility] Heart rate 2022-01-17 16:45:00 69 /min [facility] Body temperature 2022-01-17 16:45:00 36.5 Leigh [facility] Respiratory rate 2022-01-17 16:45:00 20 /min Univ ersity of [facility] Body height 2022-01-17 16:45:00 165.1 cm [facility] Body weight 2022-01-17 16:45:00 67.405 kg [facility] BMI 2022-01-17 16:45:00 24.73 kg/m2 [facility] Oxygen saturation in 2021-01-30 20:01:00 97 /min University of Arterial blood by [facility] Pulse oximetry Branch Systolic blood 2021-01-30 20:01:00 132 mm[Hg] Univer sity of pressure [facility] Diastolic blood 2021-01-30 20:01:00 72 mm[Hg] Unive rsity of pressure [facility] Heart rate 2021-01-30 20:01:00 88 /min [facility] Body temperature 2021-01-30 20:01:00 37.11 Leigh [facility] Respiratory rate 2021-01-30 20:01:00 18 /min Univ [facility]ity [facility] Body height 2021-01-30 20:01:00 165.1 cm [facility] Body weight 2021-01-30 20:01:00 67.217 kg [facility] BMI 2021-01-30 20:01:00 24.66 kg/m2 [facility] Systolic blood 2020-02-11 21:15:00 135 mm[Hg] Univer sity of pressure [facility] Diastolic blood 2020-02-11 21:15:00 95 mm[Hg] Unive rsity of pressure [facility] Oxygen saturation in 2020-02-11 21:15:00 99 /min [facility] of Arterial blood by [facility] Pulse oximetry Branch Heart rate 2020-02-11 19:35:00 98 /min Universi ty [facility] Body temperature 2020-02-11 19:35:00 37 Leigh [facility] Respiratory rate 2020-02-11 19:35:00 18 /min [facility] Body weight 2020-02-11 19:35:00 70.761 kg Universi [facility] Systolic blood 2020-02-11 21:15:00 135 mm[Hg] Univer sity of pressure [facility] Diastolic blood 2020-02-11 21:15:00 95 mm[Hg] Unive rsity of pressure [facility] Oxygen saturation in 2020-02-11 21:15:00 99 /min [facility] of Arterial blood by [facility] Pulse oximetry Branch Heart rate 2020-02-11 19:35:00 98 /min Universi [facility] Body temperature 2020-02-11 19:35:00 37 Leigh [facility] Respiratory rate 2020-02-11 19:35:00 18 /min [facility] Body weight 2020-02-11 19:35:00 70.761 kg [facility] Procedures Procedure Date / Time Performing Clinician Source Performed CBC WITH DIFF 2022-08-28 09:39:00 Gila Berrios [facility] VENOUS CORD GAS 2022-08-28 04:27:00 Mercedez [facility] CENTRAL NEURAXIAL BLOCK 2022-08-27 12:22:00 Melina Flynn [facility] HEPATITIS B SURFACE 2022-08-26 20:23:00 Frieda Newsome [facility] ANTIGEN [facility] HB ABO GROUPING 2022-08-26 20:23:00 Mercedez [facility] RHO (D) IMMUNE GLOBULIN 2022-08-26 20:23:00 Gila Berrios [facility] SYPHILIS IGG/IGM 2022-08-26 20:23:[address] [facility] NON-STRESS TEST 2022-08-26 00:10:22 Yue Xoing Un iversity [facility] POCT URINALYSIS 2022-08-25 18:49:00 Akinsipe, Julian C [facility] POCT URINALYSIS 2022-08-25 18:44:00 Akinsipe, Julian C [facility] NON-STRESS TEST 2022-08-20 14:03:39 [facility] 2022-08-20 13:20:00 Akinsipe, Julian C [facility] NON-STRESS TEST 2022-08-17 21:16:23 [facility] 2022-08-17 20:04:00 Akinsipe, Julian C [facility] NON-STRESS TEST 2022-08-13 21:32:17 [facility] 2022-08-13 14:56:00 Akinsipe, Julian C [facility] NON-STRESS TEST 2022-08-11 02:24:06 [facility] POCT URINALYSIS 2022-08-10 19:34:00 Akinsipe, Julian C [facility] NON-STRESS TEST 2022-08-05 01:41:48 [facility] 2022-08-04 19:32:00 Akinsipe, Julian C [facility] NON-STRESS TEST 2022-07-31 18:32:53 Akinsipe, Julian C [facility] POCT URINALYSIS 2022-07-31 17:56:00 Akinsipe, Julian C [facility] SECOND AND THIRD 2022-07-24 17:15:00 Qing Morley [facility] TRIMESTER ULTRASOUND [facility] NON-STRESS TEST 2022-07-23 16:09:00 Yue Xiong Un iversity [facility] POCT URINALYSIS 2022-07-23 14:55:00 AkinJulian penaloza [facility] NON-STRESS TEST 2022-07-20 23:55:57 [facility] 2022-07-20 19:12:00 AkinJulian penaloza [facility] NON-STRESS TEST 2022-07-16 16:25:43 Aleshia Dodge [facility] 2022-07-16 14:42:00 AkinJulian penaloza [facility] URINALYSIS 2022-07-15 18:46:00 Adum, Monique Meza [facility] ADC CLC OR LCC ONLY - 2022-07-15 18:46:00 Adum, Monique Meza [facility] ASSIGNMENT OF BENEFITS 2022-07-15 16:49:38 Doctor Unassigned, No [facility] CONSENT/REFUSAL FOR 2022-07-15 16:48:01 Doctor Unassigned, No [facility] NON-STRESS TEST 2022-07-10 17:18:49 Yue Xiong [facility] POCT URINALYSIS 2022-07-10 14:02:00 Julian Roland [facility] SECOND AND THIRD 2022-07-09 19:22:00 Qing Morley [facility] TRIMESTER ULTRASOUND [facility] SECOND AND THIRD 2022-07-09 19:19:00 Qing Morley [facility] TRIMESTER ULTRASOUND [facility] NON-STRESS TEST 2022-07-08 18:37:07 Yue [facility]g [facility] POCT URINALYSIS 2022-07-08 14:26:00 AkinJulian penaloza [facility] HIV 1/2 AG-AB WITH 2022-06-24 15:54:00 [facility] SYPHILIS IGG/IGM 2022-06-24 15:54:00 Yue Xiong [facility] POCT URINALYSIS 2022-06-24 15:26:00 Julian Roland [facility] POCT URINALYSIS 2022-06-10 21:11:00 Julian Roland [facility] CONSENT/REFUSAL FOR 2022-06-05 18:19:17 Doctor Unassigned, No [facility] [place] [facility] DME/SUPPLY JUSTIFICATION 2022-06-04 05:01:00 Doctor Unassigned, No [facility] URINALYSIS 2022-05-30 20:01:00 [facility] - 2022-05-30 20:01:00 Jd Harleen [facility] CONSENT/REFUSAL FOR 2022-05-30 19:07:42 Doctor Unassigned, No [facility] [place] [facility]NOS[facility] AND [facility] POCT URINALYSIS 2022-05-20 00:00:00 Julian Roland [facility] URINALYSIS 2022-04-21 05:14:00 Qing Morley [facility] ADC CLC OR LCC ONLY - 2022-04-21 05:14:[address] [facility] POCT URINALYSIS W/O 2022-04-16 16:48:00 [facility] SPECIFIC GRAVITY [facility] MATERNAL SERUM SCREEN 2022-04-16 00:00:00 Qing Morley [facility] 1-Q [facility] SCANNED LAB RESULTS 2022-03-20 06:01:00 Doctor Unassigned, No [facility] FLU VACC ([id number]), 6 2022-03-19 23:20:50 Qing Morley [facility] [place]-62 YRS, .5ML, IM, Medical Bra nch QUAD (FLUCELVAX) POCT URINALYSIS W/O 2022-03-19 00:00:00 Qing Morley [facility] POCT URINALYSIS 2022-02-24 20:00:00 Julian Roland [facility] POCT TEST 2022-01-17 16:39:00 Shi Manzano [facility] POCT URINALYSIS W/O 2022-01-17 16:39:00 Pam Manzanoasha [facility] ASSIGNMENT OF BENEFITS 2022-01-17 16:30:59 Doctor Unassigned, No [facility] POCT MOLECULAR FLU 2021-01-30 20:13:00 Hamida Nieto [facility] POCT MOLECULAR STREP 2021-01-30 20:10:00 Hamida Nieto [facility] POCT TEST 2020-02-11 20:10:00 Samia Tejada [facility] NOTICE OF PRIVACY 2020-02-11 19:30:19 Doctor Unassigned, No [facility] PRACTICES [facility] CONSENT/REFUSAL FOR 2020-02-11 19:30:04 Doctor Unassigned, No [facility]REAT[facility] Encounters Start End Encounter Admission Attending Care Care Encounter Source Date/Time Date/Time Type Type Clinicians Facility Department ID 2022-04-21 Outpatient X [facility] ELIAN [id number] Univers 00:48[facility]13 [facility] 2020-12-14 Emergency [facility] [id number] Univers 13:13:53 ity [facility] 2022-08-26 2022-08-29 Hospital EVAN Lal 1.2.840.114 [id number] Univers 13:38:00 14:24:00 Encounter Josette [facility] 350.1.13.10 [facility] 4.2.7.2.[place] [id number] [place] [address] [place] 2022-08-27 2022-08-28 Anesthesia Anders Dash 1 .2.840.114 [id number] Univers 07:10:00 01:11:00 Event Frederic Baugh 350.1.13.10 ity of [facility] 4.2.7.2.686 Armin as [id number] [address] 2022-08-25 2022-08-25 [facility]ine [facility] 1.2.840.114 [id number] Univers 15:00:00 15:00:00 Yue A BUSINESS OPERATIONS CONSULTANT 350.1.13.[address] [facility] 4.2.7.2.686 Armin as MATERNAL [id number] [facility] & CHILD [address] [place] [address] 2022-08-25 2022-08-25 [facility] [id number] Univers 15:00:00 14:19:03 [facility] 2022-08-25 2022-08-25 Outpatient R [facility]. [facility] [id number] Univers 14:30:00 14:18:29 [facility] 2022-08-21 2022-08-21 Case [facility] 1.2.840.114 [id number] Univers 00:00:00 00:00:00 Management Yue A BUSINESS OPERATIONS CONSULTANT 350.1.13.[address] [facility] 4.2.7.2.686 Armin as MATERNAL [phone] [facility] & CHILD [address] [place] [address] 2022-08-20 2022-08-20 Boiler Room Operator 1, [facility] Room [facility] 1.2. 840.114 [id number] Univers 11:30:00 11:38:46 Visit Yue Xiong BUSINESS OPERATIONS CONSULTANT 350.1.13.1 0 ity of REGIONAL 4.2.7.2.686 Armin as MATERNAL [id number] [facility] ical & CHILD [address] [place] [address] 2022-08-20 2022-08-20 [facility] [id number] Univers 08:30:00 09:02:28 YUE [facility] 2022-08-20 2022-08-20 Routine [facility][note 3] 1.2.840.114 [id number] Univers 08:30:00 09:02:28 Yue A BUSINESS OPERATIONS CONSULTANT 350.1.13.10 ity of Visit REGIONAL 4.2.7.2.686 Armin as MATERNAL [id number] [facility] & [address] 2022-08-20 2022-08-20 Telephone [facility] 1.2.840.114 1 [id number] Univers 00:00:00 00:00:00 Yue A BUSINESS OPERATIONS CONSULTANT 350.1.13.10 i ty of REGIONAL 4.2.7.2.686 Armin as MATERNAL [id number] [facility] & CHILD [address] [place] [address] 2022-08-17 2022-08-17 Outpatient R RAFFY [facility] [id number] Univers 15:00:00 15:42:27 [facility] 2022-08-17 2022-08-17 Routine [facility] 1.2.840.114 [id number] Univers 15:00:00 15:42:27 Yue A BUSINESS OPERATIONS CONSULTANT 350.1.13.10 ity of Visit REGIONAL 4.2.7.2.686 Armin as MATERNAL [id number] [facility] & [address] 2022-08-13 2022-08-13 Outpatient R RAFFY [facility] [id number] Univers 09:45:00 10:40:14 YUE ity [facility] 2022-08-13 2022-08-13 Routine [facility] 1.2.840.114 [id number] Univers 09:45:00 10:40:14 Yue A BUSINESS OPERATIONS CONSULTANT 350.1.13.10 ity of Visit REGIONAL 4.2.7.2.686 Armin as MATERNAL [id number] [address] 2022-08-12 2022-08-12 Outpatient Malinda XIONG [facility] [id number] Univers 14:00:00 14:00:00 YUE ity [facility] 2022-08-11 2022-08-11 Telephone Shruthi Malik [facility] 1.2.840.114 [id number] Univers 00:00:00 00:00:00 BUSINESS OPERATIONS CONSULTANT 350.1.13.10 it y of REGIONAL 4.2.7.2.686 Armin as MATERNAL [id number] [facility] ical & CHILD [address] [facility] 2022-08-10 2022-08-10 Outpatient R SHRUTHI MALIK [facility] [id number] Univers 14:15:00 15:46:47 ity [facility] 2022-08-10 2022-08-10 Routine Provider, Dimas-Marlin Temp [facility] 1 .2.840.114 [id number] Univers 14:15:00 15:46:47 AkinsipeJulian C BUSINESS OPERATIONS CONSULTANT 350.1.13 .10 ity of Visit Shruthi Malik [facility] 4.2.7.2.686 [place] MATERNAL [id number] [facility] & CHILD [address] [place] [address] 2022-08-07 2022-08-07 Outpatient R RAFFY [facility] [id number] Univers 08:15:00 08:15:00 [facility] 2022-08-06 2022-08-06 Boiler Room Operator 1, Karen[facility] Room [facility] 1.2. 840.114 [id number] Univers 11:30:00 12:00:00 Visit Jaswinder Lora BUSINESS OPERATIONS CONSULTANT 350.1.13.10 ity of REGIONAL 4..7.2.686 Armin as MATERNAL [id number] [facility] & CHILD [address] [place] [address] 2022-08-06 2022-08-06 Outpatient P JASWINDER LORA [facility] [id number] Univers 11:30:00 11:30:00 JASWINDER LORA [facility] 2022-08-04 2022-08-04 Routine [facility] 1.2.840.114 [id number] Univers 15:00:00 15:00:00 Yue Crys BUSINESS OPERATIONS CONSULTANT 350.1.13.[address] [facility] 4.2.7.2.686 Armin as MATERNAL [id number] [facility] & CHILD [address] [place] [address] 2022-08-04 2022-08-04 Outpatient R RAFFY [facility] [id number] Univers 15:00:00 14:55:36 YUE [facility] 2022-07-31 2022-07-31 [facility]ine [facility] 1.2.771.683 [id number] Univers 14:45:00 14:45:00 Julian C BUSINESS OPERATIONS CONSULTANT 350.1.13.10 ity of Visit REGIONAL 4.2.7.2.686 Armin as MATERNAL [phone] [facility] & [address] 2022-07-31 2022-07-31 Outpatient [facility] [id number] Univers 11:00:00 13:32:52 ANA [facility] 2022-07-31 2022-07-31 Boiler Room Operator 1, [facility] Us Room [facility] 1.2. 840.114 [id number] Univers 11:00:00 11:30:00 Visit Ana Bowman BUSINESS OPERATIONS CONSULTANT 350.1.13.10 ity of REGIONAL 4.2.7.2.686 Armin as MATERNAL [id number] [facility] & CHILD [address] [place] [address] 2022-07-31 2022-07-31 Telephone [facility] 1.2.840.114 [id number] Univers 00:00:00 00:00:00 Julian Maciel BUSINESS OPERATIONS CONSULTANT 350.1.13.10 ity of REGIONAL 4.2.7.2.686 Armin as MATERNAL [id number] [facility] & CHILD [address] [place] [address] 2022-07-28 2022-07-28 Outpatient R AKINSIPE, [facility] [id number] Univers 15:30:00 15:30:00 JULIAN ity o f [facility] 2022-07-27 2022-07-27 Outpatient [facility] [id number] Univers 09:45:00 09:45:00 JULIAN ity o f [facility] 2022-07-24 2022-07-24 Boiler Room Operator 1, Pe[facility] Us Room [facility] 1.2. 840.114 [id number] Univers 11:00:00 12:22:23 Visit Esther Montes BUSINESS OPERATIONS CONSULTANT 350.1.13.10 ity of REGIONAL 4.2.7.2.686 Armin as MATERNAL [id number] Med ical & CHILD [address] [facility] 2022-07-24 2022-07-24 Outpatient P ESTHER MONTES [facility] [id number] Univers 11:00:00 11:00:00 ESTHER MONTES [facility] 2022-07-23 2022-07-23 Outpatient [facility] [id number] Univers 10:00:00 10:36:24 YUE [facility] 2022-07-23 2022-07-23 Routine [facility] 1.2.840.114 [id number] Univers 10:00:00 10:36:24 Yue A BUSINESS OPERATIONS CONSULTANT 350.1.13.10 ity of Visit REGIONAL 4.2.7.2.686 Armin as MATERNAL [id number] [facility] ical & CHILD [address] [place] [address] 2022-07-20 2022-07-20 Routine [facility] 1.2.840.114 [id number] Univers 16:00:00 16:00:00 Yue A BUSINESS OPERATIONS CONSULTANT 350.1.13.[address] [facility] 4.2.7.2.686 Armin as MATERNAL [id number] [facility] & CHILD [address] [place] [address] 2022-07-20 2022-07-20 Outpatient [facility] [id number] Univers 16:00:00 15:00:08 [facility] 2022-07-16 2022-07-16 Outpatient R AKSHAT [facility] [id number] Univers 11:30:00 12:36:23 ANA [facility] 2022-07-16 2022-07-16 Boiler Room Operator [facility] 1.2. 840.114 [id number] Univers 11:30:00 12:36:23 Visit Esther Montes BUSINESS OPERATIONS CONSULTANT 350.1.13.10 ity of Ana Bowman F REGIONAL 4.2.7.2.686 [place] MATERNAL [id number] Med ical & CHILD [address] [facility] 2022-07-16 2022-07-16 Routine Benjamin, [facility] 1.2.840.114 [id number] Univers 09:45:00 10:37:13 Aleshia Spangler BUSINESS OPERATIONS CONSULTANT 350.1.13.10 ity of [facility] 4.2.7.2.686 Armin as MATERNAL [id number] [facility] ical & CHILD [address] [facility] 2022-07-16 2022-07-16 Outpatient R [facility] [id number] Univers 09:30:00 09:30:00 ity [facility] 2022-07-15 2022-07-15 Outpatient X ADUM, [facility] ELIAN [id number] Univers 11:55:00 14:55:00 MONIQUE [facility] 2022-07-15 2022-07-15 Emergency Ad, [facility] 1.2.021.839 [id number] Univers 11:55:00 14:55:00 Monique UP 350.1.13.10 ity of [place]7.2.[place] [id number] [facility] [address] 2022-07-15 2022-07-15 Nurse EVAN Marquez 1.2.840.114 [id number] Univers 00:00:00 00:00:00 Triage Kimberly GREGORY 350.1.13.10 it y of [facility] 4.2.7.2.686 Armin as [id number] [facility] [address] 2022-07-14 2022-07-14 Outpatient Malinda XIONG [facility] [id number] Univers 08:30:00 08:30:00 YUE itshruti [facility] 2022-07-13 2022-07-13 Telephone Raffy [facility] 1.2.840.114 [id number] Univers 00:00:00 00:00:00 Yue Spangler 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 4.2.7.2.686 Armin as MATERNAL [id number] [facility] 2022-07-10 2022-07-10 [facility] [id number] Univers 09:00:00 09:33:46 YUE ity [facility] 2022-07-10 2022-07-10 Routine [facility] 1.2.840.114 [id number] Univers 09:00:00 09:33:46 Yue A BUSINESS OPERATIONS CONSULTANT 350.1.13.10 ity of Visit REGIONAL 4.2.7.2.686 Armin as MATERNAL [id number] [facility] ical & CHILD [address] [place] [address] 2022-07-09 2022-07-09 Boiler Room Operator 2, [facility] Us Room [facility] 1 .2.840.114 [id number] Univers 13:00:00 14:05:34 Visit Iglesia Bridges [facility] 350.1.13. 10 ity of CL[place]2.[place].2.[place] [id number] [address] 2022-07-09 2022-07-09 Outpatient P [facility] [id number] Univers 13:00:00 13:00:00 I[facility]ESIA [facility] 2022-07-08 2022-07-08 Routine [facility] 1.2.840.114 [id number] Univers 10:30:00 10:30:00 Yue A BUSINESS OPERATIONS CONSULTANT 350.1.13.10 ity of Visit REGIONAL 4.2.7.2.686 Armin as MATERNAL [id number] [facility] & CHILD [address] [place] [address] 2022-07-08 2022-07-08 Outpatient [facility] [id number] Univers 10:30:00 10:05:35 YUE ity [facility] 2022-07-08 2022-07-08 Telephone [facility] 1.2.840.114 [id number] Univers 00:00:00 00:00:00 Yue A BUSINESS OPERATIONS CONSULTANT 350.1.13.10 i ty of REGIONAL 4.2.7.2.686 Armin as MATERNAL [id number] [facility] & CHILD [address] [place] [address] 2022-07-02 2022-07-02 Case Raffy, [facility] 1.2.840.114 [id number] Univers 00:00:00 00:00:00 Management Yue A BUSINESS OPERATIONS CONSULTANT 350.1.13.10 ity of REGIONAL 4.2.7.2.686 Armin as MATERNAL [id number] [facility] ical & CHILD [address] [place] [address] 2022-07-01 2022-07-01 Boiler Room Operator Ultrasound, [facility] 1.2 .840.114 [id number] Univers 15:30:00 16:04:22 Visit Esther Montes BUSINESS OPERATIONS CONSULTANT 350.1.13.10 ity of REGIONAL 4.2.7.2.686 Armin as MATERNAL [id number] [facility] & CHILD [address] [place] [address] 2022-07-01 2022-07-01 Outpatient P ESTHER MONTES [facility] [id number] Univers 15:30:00 15:30:00 ESTHER MONTES [facility] 2022-06-24 2022-06-24 [facility] [id number] Univers 10:15:00 10:54:05 YUE [facility] 2022-06-24 2022-06-24 Routine [facility][note 3] 1.2.840.114 [id number] Univers 10:15:00 10:54:05 Yue A BUSINESS OPERATIONS CONSULTANT 350.1.13.10 ity of Visit REGIONAL 4.2.7.2.686 Armin as MATERNAL [id number] [facility] & CHILD [address] [place] [address] 2022-06-10 2022-06-10 [facility] [id number] Univers 15:30:00 16:27:05 YUE [facility] 2022-06-10 2022-06-10 Routine [facility][note 3] 1.2.840.114 [id number] Univers 15:30:00 16:27:05 Yue A BUSINESS OPERATIONS CONSULTANT 350.1.13.10 ity of Visit REGIONAL 4.2.7.2.686 Armin as MATERNAL [id number] [facility] & CHILD [address] [place] [address] 2022-06-09 2022-06-09 Outpatient R RAFFY [facility] [id number] Univers 11:00:00 11:00:00 YUE shruti [facility] 2022-06-08 2022-06-[address] [facility] 1.2.840.114 [id number] Univers 00:00:00 00:00:00 Anna BUSINESS OPERATIONS CONSULTANT 350.1.13.[address] [facility] 4.2.7.2.686 Armin as MATERNAL [id number] [facility] ical & CHILD [address] [place] [address] 2022-06-07 2022-06-[address] [facility] 1.2.840.114 [id number] Univers 00:00:00 00:00:00 Anna BUSINESS OPERATIONS CONSULTANT 350.1.13.[address] [facility] 4.2.7.2.686 Armin as MATERNAL [id number] [facility] & [address] 2022-06-05 2022-06-05 Emergency X [facility] ERT [id number] Univers 13:26:00 13:55:00 GINA [facility] 2022-06-05 2022-06-05 Emergency [facility] 1.2.840.114 [id number] Univers 13:26:00 13:55:00 Gina UP 350.1.13.10 ity of [place] [id number] [facility] [address] 2022-06-04 2022-06-04 Orders Doctor EVAN 1.2.840.114 [id number] Univers 00:00:00 00:00:00 Only Unassigned, COLT 350.1.13.10 ity of [place] [facility] 4.2.7.2.686 Armin as [id number] [facility] [address] 2022-06-04 2022-06-04 Telephone Qing Morley [facility] 1.2.840.114 [id number] Univers 00:00:00 00:00:00 Dakota UP 350.1.13.10 i ty of [place]2.7.2.686 [place] [id number] In dical NAL [address] [place] [address] 2022-06-02 2022-06-02 [facility]phone [facility] 1.2.840.11 4 [id number] Univers 00:00:00 00:00:00 Harlene hoyos 350.1.13.10 ity of [place] 4.2.7.2.686 [facility] [id number] [address] 2022-05-30 2022-05-30 Outpatient X LISA MILESL [facility] O BY [id number] Univers 14:06:00 16:15:00 HAMPTONAISHA, HARLEEN ity of [facility] 2022-05-30 2022-05-30 Emergency [facility] 1.2.840.114 [id number] Univers 14:06:00 16:15:00 Harleen hoyos STIGLER 350.1.13.10 ity of [place] 4.2.7.2.686 [facility] [id number] [place] [address] [place] 2022-05-20 2022-05-20 Outpatient R RAFFY [facility] [id number] Univers 07:45:00 08:15:47 YUE ity of [facility] 2022-05-20 2022-05-20 Routine [facility] 1.2.840.114 [id number] Univers 07:45:00 08:15:47 Yue A BUSINESS OPERATIONS CONSULTANT 350.1.13.10 ity of Visit REGIONAL 4.2.7.2.686 Armin as MATERNAL [id number] Med ical & CHILD [address] [place] [address] 2022-05-20 2022-05-20 Letter [facility] 1.2.840.114 [id number] Univers 00:00:00 00:00:00 (Out) Yue A 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 4.2.7.2.686 Armin as MATERNAL [id number] [facility] CHILD [address] [place] [address] 2022-05-14 2022-05-14 Outpatient R QING MORLEY [facility] [id number] Univers 13:00:00 13:00:00 ity [facility] 2022-05-11 2022-05-11 Telephone Qing Morley [facility] 1.2.840.114 10 [id number] Univers 00:00:00 00:00:00 [place] UP 350.1.13.10 i ty of [place] [id number] In dic[address] 2022-05-08 2022-05-08 Telephone Qing Morley [facility] 1.2.840.114 10 [id number] Univers 00:00:00 00:00:00 Dakota UP 350.1.13.10 i ty of [place] [id number] [address] 2022-05-07 2022-05-07 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 4.2.7.2.686 Armin as MATERNAL [id number] [facility] ical & CHILD [address] [place] [address] 2022-05-07 2022-05-07 Outpatient P JASWINDER LORA [facility] [id number] Univers 08:00:00 08:00:00 [facility]ER [facility] 2022-04-20 2022-04-21 Outpatient X QING MORLEY [facility] ELIAN [id number] Univers 22:48:00 00:42:00 ity [facility] 2022-04-20 2022-04-21 Emergency Qing Morley [facility] 1.2.840.114 10 [id number] Univers 22:48:00 00:42:00 Dakota BANNERVALERIE 350.1.13.10 i ty of [place] [id number] [address] 2022-04-20 2022-04-20 Outpatient R [facility] [id number] Univers 15:00:00 15:00:00 ity [facility] 2022-04-20 2022-04-20 Telephone Alexus Morleyen [facility] 1.2.840.114 10 [id number] Univers 00:00:00 00:00:00 [place] 350.1.13.10 i [place] [id number] In dical NAL [address] [place] [address] 2022-04-20 2022-04-20 Patient Alexus Morleyen [facility] [id number] [id number] Univers 00:00:00 00:00:00 Secure Msg [place] 350.1.13.10 [place] [id number] In dical [address] 2022-04-16 2022-04-16 [facility] [id number] Univers 10:45:00 11:03:05 PARVEZ ity of [facility] 2022-04-16 2022-04-16 Routine [facility] [id number] Univers 10:45:00 11:03:05 Parvez [place] 350.1.13.10 [place]y of [place] [id number] In dical NAL [address] [place] [address] 2022-04-16 2022-04-16 Telephone [facility] 1.2.840.114 [id number] Univers 00:00:00 00:00:00 Parvez UP 350.1.13.10 i [place] [id number] In dical NAL [address] [place] [address] 2022-04-16 2022-04-16 Orders Qing Morley [id number] [id number] Univers 00:00:00 00:00:00 Only [place] 350.1.13.10 it y of HOSPITAL 4.2.7.2.686 Armin as [id number] [address] 2022-04-15 2022-04-15 Outpatient P [facility] [id number] Univers 11:00:00 11:00:00 ity of [facility] 2022-03-30 2022-03-30 Telephone Qing Morley [facility] 1.2.840.114 [id number] Univers 00:00:00 00:00:00 Cam AN[place]VALERIE 350.1.13.10 i ty of [place] [id number] [facility] [address] [facility] 2022-03-30 2022-03-30 Telephone Qing Morley [facility] 1.2.840.114 [id number] Univers 00:00:00 00:00:00 Cam [place] 350.1.13.10 i ty [place] [phone] [facility] 134 [facility] 2022-03-24 2022-03-24 Outpatient R ASUNCION [facility] [id number] Univers 12:45:00 12:45:00 JULIAN shine [facility] 2022-03-20 2022-03-20 Boiler Room Operator 2, Adc Lab [facility] 1.2.840.114 [id number] Univers 11:00:00 11:15:00 Visit Qing Morley [place] 350.1.13.10 it[place] [id number] [facility] 353 [facility] 2022-03-20 2022-03-20 Outpatient R PEYMAN QING [facility] [id number] Univers 11:00:00 11:00:00 ity of [facility] 2022-03-20 2022-03-20 Orders Doctor GORDON 1.2.840.114 [id number] Univers 00:00:00 00:00:00 Only Unassigned, COLT 350.1.13.10 ity of [place] [facility] 4.2.7.2.686 Armin as [id number] [address] 2022-03-19 2022-03-19 Outpatient R QING MORLEY [facility] [id number] Univers 14:00:00 15:23:42 ity of [facility] 2022-03-19 2022-03-19 Initial Qing Morley [facility] 1.2.634.399 [id number] Univers 14:00:00 15:23:42 Cam [place] 350.1.13.10 ity of [place] [id number] In dic[address] 2022-03-16 2022-03-16 Patient Qing Morley [facility] 1.2.222.498 [id number] Univers 00:00:00 00:00:00 Secure Msg [place]AN[place]VALER[place] 350.1.13.10 ity of [place] [id number] [address] 2022-03-04 2022-03-04 Outpatient R QING MORLEY [facility] [id number] Univers 10:00:00 10:00:00 ity of [facility] 2022-02-26 2022-02-26 Telephone [facility] 1.2.840.114 [id number] Univers 00:00:00 00:00:00 Julian C BUSINESS OPERATIONS CONSULTANT 350.1.13.10 ity of [facility]IONAL 4.2.7.2.686 Armin as MATERNAL [id number] Med ical & CHILD [address] [place] [address] 2022-02-24 2022-02-24 Outpatient R [facility] [id number] Univers 14:00:00 14:50:28 JULIAN ity o f [facility] 2022-02-24 2022-02-24 Routine [facility] 1.2.309.870 [id number] Univers 14:00:00 14:50:28 Julian C BUSINESS OPERATIONS CONSULTANT 350.1.13.[address] [facility] 4.2.7.2.686 Armin as MATERNAL [id number] Med ical & CHILD [address] [place] [address] 2022-02-16 2022-02-16 [facility] [id number] Univers 10:30:00 10:30:00 JULIAN ity o f [facility] 2022-01-31 2022-01-31 EVAN Jerez 1.2.840.114 [id number] Univers 00:00:00 00:00:00 Triage Aneatrice COLT 350.1.13.10 ity of HOSPITAL 4.2.7.2.686 Armin as [id number] [facility] [address] 2022-01-29 2022-01-29 Telephone [facility] 1.2.840.114 [id number] Univers 00:00:00 00:00:00 Julian C BUSINESS OPERATIONS CONSULTANT 350.1.13.10 ity of [facility] 4.2.7.2.686 Armin as MATERNAL [id number] [facility] ical & CHILD [address] [place] [address] 2022-01-29 2022-01-29 Patient Darius, SHIRLEY 1.2.578.164 [id number] Univers 00:00:00 00:00:00 Secure Msg Anna Y HEALTH 350.1.13.10 ity of [facility] 4.2.7.2.686 [place] [id number] [facility] [address] 2022-01-17 2022-01-17 Outpatient R DARIUS [facility] [id number] Univers 10:30:00 11:46:56 ANNA ity of [facility] 2022-01-17 2022-01-17 [facility] 1 .2.840.114 [id number] Univers 10:30:00 11:46:56 Anna Mccoy BUSINESS OPERATIONS CONSULTANT 350.1.13.10 ity of Visit REGIONAL 4.2.7.2.686 Armin as MATERNAL [id number] [facility] & CHILD [address] [place] [address] 2022-01-17 2022-01-17 Orders Doctor EVAN 1.2.840.114 [id number] Univers 00:00:00 00:00:00 Only Unassigned, COLT 350.1.13.10 ity of [place] [facility] 4.2.7.2.686 Armin as [id number] [facility] [address] 2021-02-01 2021-02-01 Telephone [facility] 1.2.840.114 [id number] Univers 00:00:00 00:00:00 Ranma HEALTH 350.1.13.10 it y of [place] 4.2.7.2.686 Armin as OMER?BLEA [id number] [address] OFFICE [facility] 2021-01-31 2021-01-31 Telephone EVAN Kwong 1.2.913.678 [id number] Univers 00:00:00 00:00:00 Shaniqua Meza COLT 350.1.13.10 ity of [facility] 4.2.7.2.686 Armin as [id number] [address] 2021-01-30 2021-01-30 [facility] [id number] Univers 14:00:00 14:30:12 [facility] 2021-01-30 2021-01-30 Urgent [facility] 1.2.840.114 [id number] Univers 14:00:00 14:20:00 Care [facility] 350.1.13.10 it y of [place] 4.2.7.2.686 Armin as OMER?BLEA [id number] [address] OFFICE [facility] 2020-07-26 2020-07-26 Outpatient R QING MORLEY [facility] [id number] Univers 15:00:00 15:00:00 ity [facility] [place] 2020-07-24 2020-07-24 Telephone Peyman [facility] 1.2.840.114 [id number] 00:00:00 00:00:00 Cam Julian 350.1.13.10 [place] 4.2.7.2.686 Professio [id number] [address] 2020-07-24 2020-07-24 [facility] 1.2.840.114 [id number] Univers 00:00:00 00:00:00 [place] 350.1.13.10 i ty of [place] [phone] [address] 2020-02-11 2020-02-11 Emergency [facility] 1.2.074.452 [id number] Univers 13:37:00 15:17:00 Samia Up 350.1.13.10 ity of [place].2.[place] [id number] [facility] [address] 2020-02-11 2020-02-11 Emergency [facility], [facility] 1.2.182.735 [id number] 13:37:00 15:17:00 Samia Up 350.1.13.10 [place] 4.2.7.2.686 [place] [id number] 084 2020-02-11 2020-02-11 Orders Doctor EVAN 1.2.840.114 [id number] Univers 00:00:00 00:00:00 Only Unassigned, COLT 350.1.13.10 ity of [place] [facility] 4.2.7.2.686 Armin [id number] [facility] [address] 2020-02-11 2020-02-11 Orders Doctor EVAN 1.2.840.114 [id number] 00:00:00 00:00:00 Only Unassigned, COLT 350.1.13.10 [place] [facility] 4.2.7.2.686 [id number] 009 Results Test Description Test Time Test Comments Results Result Comments Source CBC with Differential 2022-08-28 17:25:14 Test Item Value Reference Range Interpretation Comme nts WBC (test code = 6690-2) 32.99 See_Comment H [A utomated message] The system which ge nerated this result transmit jaden reference range: 4.30 - 1 1.10 10*3/?L. The reference r sheng was not used to interpr et this result as normal/abnor mal. RBC (test code = 789-8) 4.31 See_Comment [Au tomated message] The system which ge nerated this result transmit jaden reference range: 3.93 - 5 .25 10*6/?L. The reference r sheng was not used to interpr et this result as normal/abnor mal. HGB (test code = 718-7) 10.9 g/dL 11.6-15.0 L HCT (test code = 4544-3) 33.1 % 35.7-45.2 L MCV (test code = 787-2) 76.8 fL 80.6-95.5 L MCH (test code = 785-6) 25.3 pg 25.9-32.8 L MCHC (test code = 786-4) 32.9 g/dL 31.6-35.1 RDW-SD (test code = 37917-9) 47.0 fL 39.0-49.9 RDW-CV (test code = 788-0) 16.9 % 12.0-15.5 H PLT (test code = 777-3) 205 See_Comment [Au tomated message] The system which ge nerated this result transmit jaden reference range: 166 - 35 8 10*3/?L. The reference range was not used to interpret th is result as normal/abnormal . MPV (test code = 70607-2) 11.2 fL 9.5-12.9 NRBC/100 WBC (test code = 0.0 See_Comment [ Automated message] The [id number]) system which ge nerated this result transmit jaden reference range: 0.0 - 10 .0 /100 WBCs. The reference r sheng was not used to interpr et this result as normal/abnor mal. NRBC x10^3 (test code = See_Comment [Au tomated message] The 7078585567) system which ge nerated this result transmit jaden reference range: 10*3/?L. The reference range was not u sed to interpret this result as normal/abnormal . GRAN MAT (NEUT) % (test code 86.4 % = 770-8) IMM GRAN % (test code = 0.90 % 8749821853) LYMPH % (test code = 736-9) 3.2 % MONO % (test code = 5905-5) 9.3 % EOS % (test code = 713-8) 0.0 % BASO % (test code = 706-2) 0.2 % GRAN MAT x10^3(ANC) (test 28.52 10*3/uL 1.88-7.09 H code = 6522522253) IMM GRAN x10^3 (test code = 0.30 10*3/uL 0.00-0.06 H 7296818369) LYMPH x10^3 (test code = 1.06 10*3/uL 1.32-3.29 L 731-0) MONO x10^3 (test code = 3.06 10*3/uL 0.33-0.92 H 742-7) EOS x10^3 (test code = 0.03-0.39 L 711-2) BASO x10^3 (test code = 0.05 10*3/uL 0.01-0.07 704-7) BANDS (test code = Increased A [id number]) Lab Interpretation (test Abnormal code = 91959-1) [facility] IMMUNE [id number] 05:55:59 Test Item Value Reference Range Interpretation Comments RHIG CANDIDATE? No- see comment Patient i s not a (test code = candidate for R hIg- 5188) Patient is Rh Positive.Perfor med at [facility] Laboratory Services - [facility] Blood [address] [place] [address] 44073Lyki Free: [phone] A No. [id number] [facility] Cord [id number] 04:37:25 Test Item Value Reference Range Interpretation Comments BASE EXCESS, CORD -9.1 mEq/L QUES (test code = 1874887009) AC PH, CORD (BEAKER) 7.21 7.18-7.38 (test code = 9154815680) PC02, CORD (test code 48 See_Comment [Auto mated message] The = 1113398275) system which g enerated this result transmit jaden reference range : 32 - 66 mmHg. The refer ence range was not used to interpret this result as normal/abnormal . PO2, CORD (test code 16 See_Comment [Autom ated message] The = 6404462391) system which g enerated this result transmit jaden reference range : 10 - 30 mmHg. The refer ence range was not used to interpret this result as normal/abnormal . BICARBONATE, CORD 19 See_Comment [Automate d message] The (test code = system which ge nerated this 1737029190) result transmit jaden reference range : 17 - 27 mEq/L. The refe rence range was not used to interpret this result as normal/abnormal . [facility] Cord [id number] 04:37:15 Test Item Value Reference Range Interpretation Comments VENOUS BASE EXCESS, -9.4 mEq/L CORD (test code = 3782289665) VENOUS PH, CORD (test 7.28 7.25-7.45 code = 7785193495) VENOUS PC02, CORD 36 See_Comment [Automate d message] The (test code = system which ge nerated 0596553704) this result tra nsmitted reference range : 27 - 49 mmHg. The refer ence range was not used to interpret this result as normal/abnormal . VENOUS PO2, CORD (test 26 See_Comment [Aut omated message] The code = 2306574503) system wh ich generated this result tra nsmitted reference range : 17 - 41 mmHg. The refer ence range was not used to interpret this result as normal/abnormal . VENOUS BICARBONATE, 16 See_Comment [Automa jaden message] The CORD (test code = system whi ch generated 2898210128) this result tra nsmitted reference range : 12 - 29 mEq/L. The refe rence range was not used to interpret this result as normal/abnormal . [facility] - SYPHILIS [id number] 14:35:45 Test Item Value Reference Range Interpretation Comments Syphilis IgG/IgM (test Non-reactive Non-reactive code = 37256-9) IGNACIA (test code = IGNACIA) Non-reactive - No serologic evidence of T. pallidum infection. Cannot exclude incubating or early syphilis. Submit a second specimen in 2-4 weeks if syphilis is clinically suspected. Equivocal - Further testing to follow. Reactive - Further testing to follow. Lab Interpretation (test Normal code = 67803-9) [facility]atitis B Surface [id number] 21:44:14 Test Item Value Reference Range Interpretation Comments HBsAg Semi-Quantitative (test code = 0.04 Negative 5195-3) [facility]Type and Screen - ONCE [id number] 20:36:00 Test Item Value Reference Range Interpretation Comments ABO & RH (test code = 20) O POSITIVE IAT (test code = 1185) Negative [facility] W SPECIFIC [id number] 18:49:00 Test Item Value Reference Range Interpretation Comments POCT U SP GRAV (test code = 3255) . 1.005-1.025 POCT PH U (test code = 3254) . 5-8 POCT U LEUK EST (test code = 3263) . Negative - Negative POCT U NIT (test code = 3262) . Negative - Negative POCT U PROT (test code = 3259) . Negative - Negative POCT U GLU (test code = 3256) . Negative - Negative POCT U KETONE (test code = 3258) . Negative - Negative POCT U UROBILI (test code = 3260) . 0.2-1 POCT U BILI (test code = 3261) . Negative - Negative POCT U BLD (test code = 3257) . Negative - Negative POCT U COLOR (test code = 3266) . POCT U APPEAR (test code = 3267) [facility] URINALYSIS W SPECIFIC [id number] 18:44:00 Test Item Value Reference Range Interpretation Comments POCT U SP GRAV (test code = 3255) . 1.005-1.025 POCT PH U (test code = 3254) 6 mg/dl 5-8 POCT U LEUK EST (test code = Trace Negative - Negative 3263) POCT U NIT (test code = 3262) Neg Negative - Negative POCT U PROT (test code = 3259) Trace Negative - Negative POCT U GLU (test code = 3256) Neg Negative - Negative POCT U KETONE (test code = 3258) None Negative - Negative POCT U UROBILI (test code = 3260) . 0.2-1 POCT U BILI (test code = 3261) . Negative - Negative POCT U BLD (test code = 3257) Trace Negative - Negative POCT U COLOR (test code = 3266) POCT U APPEAR (test code = 3267) [facility] URINALYSIS W SPECIFIC [id number] 13:20:00 Test Item Value Reference Range Interpretation Comments POCT U SP GRAV (test code = . 1.005-1.025 A 3255) POCT PH U (test code = 3254) 6 mg/dl 5-8 POCT U LEUK EST (test code = Trace Negative - Negative 3263) POCT U NIT (test code = 3262) Neg Negative - Negative POCT U PROT (test code = 3259) Trace Negative - Negative POCT U GLU (test code = 3256) Neg Negative - Negative POCT U KETONE (test code = 3258) None Negative - Negative POCT U UROBILI (test code = . 0.2-1 3260) POCT U BILI (test code = 3261) . Negative - Negative POCT U BLD (test code = 3257) Trace Negative - Negative POCT U COLOR (test code = 3266) . POCT U APPEAR (test code = 3267) . Lab Interpretation (test code = Abnormal 03505-9) [facility] URINALYSIS W SPECIFIC [id number] 13:20:00 Test Item Value Reference Range Interpretation Comments POCT U SP GRAV (test code = . 1.005-1.025 A 3255) POCT PH U (test code = 3254) 6 mg/dl 5-8 POCT U LEUK EST (test code = Trace Negative - Negative 3263) POCT U NIT (test code = 3262) Neg Negative - Negative POCT U PROT (test code = 3259) Trace Negative - Negative POCT U GLU (test code = 3256) Neg Negative - Negative POCT U KETONE (test code = 3258) None Negative - Negative POCT U UROBILI (test code = . 0.2-1 3260) POCT U BILI (test code = 3261) . Negative - Negative POCT U BLD (test code = 3257) Trace Negative - Negative POCT U COLOR (test code = 3266) . POCT U APPEAR (test code = 3267) . Lab Interpretation (test code = Abnormal 46113-1) [facility] URINALYSIS W SPECIFIC [id number] 20:05:00 Test Item Value Reference Range Interpretation Comments POCT U SP GRAV (test code = . 1.005-1.025 3255) POCT PH U (test code = 3254) . 5-8 POCT U LEUK EST (test code = . Negative - Negative 3263) POCT U NIT (test code = 3262) . Negative - Negative POCT U PROT (test code = 3259) negative Negative - Negative POCT U GLU (test code = 3256) negative Negative - Negative POCT U KETONE (test code = 3258) . Negative - Negative POCT U UROBILI (test code = . 0.2-1 3260) POCT U BILI (test code = 3261) . Negative - Negative POCT U BLD (test code = 3257) . Negative - Negative POCT U COLOR (test code = 3266) POCT U APPEAR (test code = 3267) [facility] URINALYSIS W SPECIFIC [id number] 14:56:00 Test Item Value Reference Range Interpretation Comments POCT U SP GRAV (test code = . 1.005-1.025 A 3255) POCT PH U (test code = 3254) 6 mg/dl 5-8 POCT U LEUK EST (test code = Trace Negative - Negative 3263) POCT U NIT (test code = 3262) Neg Negative - Negative POCT U PROT (test code = 3259) Trace Negative - Negative POCT U GLU (test code = 3256) Neg Negative - Negative POCT U KETONE (test code = 3258) None Negative - Negative POCT U UROBILI (test code = . 0.2-1 3260) POCT U BILI (test code = 3261) . Negative - Negative POCT U BLD (test code = 3257) Trace Negative - Negative POCT U COLOR (test code = 3266) . POCT U APPEAR (test code = 3267) . Lab Interpretation (test code = Abnormal 29785-3) [facility] URINALYSIS W SPECIFIC [id number] 14:56:00 Test Item Value Reference Range Interpretation Comments POCT U SP GRAV (test code = . 1.005-1.025 A 3255) POCT PH U (test code = 3254) 6 mg/dl 5-8 POCT U LEUK EST (test code = Trace Negative - Negative 3263) POCT U NIT (test code = 3262) Neg Negative - Negative POCT U PROT (test code = 3259) Trace Negative - Negative POCT U GLU (test code = 3256) Neg Negative - Negative POCT U KETONE (test code = 3258) None Negative - Negative POCT U UROBILI (test code = . 0.2-1 3260) POCT U BILI (test code = 3261) . Negative - Negative POCT U BLD (test code = 3257) Trace Negative - Negative POCT U COLOR (test code = 3266) . POCT U APPEAR (test code = 3267) . Lab Interpretation (test code = Abnormal 91197-5) [facility] URINALYSIS W SPECIFIC [id number] 19:34:00 Test Item Value Reference Range Interpretation Comments POCT U SP GRAV (test code = 3255) . 1.005-1.025 POCT PH U (test code = 3254) 7 mg/dl 5-8 POCT U LEUK EST (test code = Trace Negative - Negative 3263) POCT U NIT (test code = 3262) Neg Negative - Negative POCT U PROT (test code = 3259) Trace Negative - Negative POCT U GLU (test code = 3256) Neg Negative - Negative POCT U KETONE (test code = 3258) None Negative - Negative POCT U UROBILI (test code = 3260) . 0.2-1 POCT U BILI (test code = 3261) . Negative - Negative POCT U BLD (test code = 3257) Trace Negative - Negative POCT U COLOR (test code = 3266) POCT U APPEAR (test code = 3267) [facility] URINALYSIS W SPECIFIC [id number] 19:32:00 Test Item Value Reference Range Interpretation Comments POCT U SP GRAV (test code = . 1.005-1.025 A 3255) POCT PH U (test code = 3254) 6 mg/dl 5-8 POCT U LEUK EST (test code = Trace Negative - Negative 3263) POCT U NIT (test code = 3262) Neg Negative - Negative POCT U PROT (test code = 3259) Trace Negative - Negative POCT U GLU (test code = 3256) Trace Negative - Negative POCT U KETONE (test code = 3258) None Negative - Negative POCT U UROBILI (test code = . 0.2-1 3260) POCT U BILI (test code = 3261) . Negative - Negative POCT U BLD (test code = 3257) Trace Negative - Negative POCT U COLOR (test code = 3266) . POCT U APPEAR (test code = 3267) . Lab Interpretation (test code = Abnormal 98418-1) [facility] URINALYSIS W SPECIFIC [id number] 17:56:00 Test Item Value Reference Range Interpretation Comments POCT U SP GRAV (test code = . 1.005-1.025 3255) POCT PH U (test code = 3254) . 5-8 POCT U LEUK EST (test code = . Negative - Negative 3263) POCT U NIT (test code = 3262) . Negative - Negative POCT U PROT (test code = 3259) trace Negative - Negative POCT U GLU (test code = 3256) negative Negative - Negative POCT U KETONE (test code = 3258) . Negative - Negative POCT U UROBILI (test code = . 0.2-1 3260) POCT U BILI (test code = 3261) . Negative - Negative POCT U BLD (test code = 3257) . Negative - Negative POCT U COLOR (test code = 3266) POCT U APPEAR (test code = 3267) [facility] URINALYSIS W SPECIFIC [id number] 14:55:00 Test Item Value Reference Range Interpretation Comments POCT U SP GRAV (test code = 3255) . 1.005-1.025 POCT PH U (test code = 3254) 7 mg/dl 5-8 POCT U LEUK EST (test code = 1+ Negative - Negative 3263) POCT U NIT (test code = 3262) Neg Negative - Negative POCT U PROT (test code = 3259) Trace Negative - Negative POCT U GLU (test code = 3256) Neg Negative - Negative POCT U KETONE (test code = 3258) None Negative - Negative POCT U UROBILI (test code = 3260) . 0.2-1 POCT U BILI (test code = 3261) . Negative - Negative POCT U BLD (test code = 3257) Trace Negative - Negative POCT U COLOR (test code = 3266) . POCT U APPEAR (test code = 3267) [facility] URINALYSIS W SPECIFIC [id number] 19:12:00 Test Item Value Reference Range Interpretation Comments POCT U SP GRAV (test code = 3255) . 1.005-1.025 POCT PH U (test code = 3254) 8 mg/dl 5-8 POCT U LEUK EST (test code = Trace Negative - Negative 3263) POCT U NIT (test code = 3262) Neg Negative - Negative POCT U PROT (test code = 3259) Trace Negative - Negative POCT U GLU (test code = 3256) Neg Negative - Negative POCT U KETONE (test code = 3258) None Negative - Negative POCT U UROBILI (test code = 3260) . 0.2-1 POCT U BILI (test code = 3261) . Negative - Negative POCT U BLD (test code = 3257) Trace Negative - Negative POCT U COLOR (test code = 3266) . POCT U APPEAR (test code = 3267) . [facility] URINALYSIS W SPECIFIC [id number] 19:12:00 Test Item Value Reference Range Interpretation Comments POCT U SP GRAV (test code = 3255) . 1.005-1.025 POCT PH U (test code = 3254) 8 mg/dl 5-8 POCT U LEUK EST (test code = Trace Negative - Negative 3263) POCT U NIT (test code = 3262) Neg Negative - Negative POCT U PROT (test code = 3259) Trace Negative - Negative POCT U GLU (test code = 3256) Neg Negative - Negative POCT U KETONE (test code = 3258) None Negative - Negative POCT U UROBILI (test code = 3260) . 0.2-1 POCT U BILI (test code = 3261) . Negative - Negative POCT U BLD (test code = 3257) Trace Negative - Negative POCT U COLOR (test code = 3266) . POCT U APPEAR (test code = 3267) . [facility] URINALYSIS W SPECIFIC [id number] 14:42:00 Test Item Value Reference Range Interpretation Comments POCT U SP GRAV (test code = 3255) n/a 1.005-1.025 POCT PH U (test code = 3254) 7 mg/dl 5-8 POCT U LEUK EST (test code = neg Negative - Negative 3263) POCT U NIT (test code = 3262) neg Negative - Negative POCT U PROT (test code = 3259) neg Negative - Negative POCT U GLU (test code = 3256) neg Negative - Negative POCT U KETONE (test code = 3258) neg Negative - Negative POCT U UROBILI (test code = 3260) n/a 0.2-1 POCT U BILI (test code = 3261) n/a Negative - Negative POCT U BLD (test code = 3257) neg Negative - Negative POCT U COLOR (test code = 3266) yellow POCT U APPEAR (test code = 3267) clear [facility] URINALYSIS W SPECIFIC [id number] 14:02:00 Test Item Value Reference Range Interpretation Comments POCT U SP GRAV (test code = 3255) .. 1.005-1.025 POCT PH U (test code = 3254) 6 mg/dl 5-8 POCT U LEUK EST (test code = Trace Negative - Negative 3263) POCT U NIT (test code = 3262) Neg Negative - Negative POCT U PROT (test code = 3259) Trace Negative - Negative POCT U GLU (test code = 3256) Neg Negative - Negative POCT U KETONE (test code = 3258) None Negative - Negative POCT U UROBILI (test code = 3260) . 0.2-1 POCT U BILI (test code = 3261) . Negative - Negative POCT U BLD (test code = 3257) Trace Negative - Negative POCT U COLOR (test code = 3266) . POCT U APPEAR (test code = 3267) .. [facility] URINALYSIS W SPECIFIC [id number] 14:27:00 Test Item Value Reference Range Interpretation Comments POCT U SP GRAV (test code = 3255) . 1.005-1.025 POCT PH U (test code = 3254) 6 mg/dl 5-8 POCT U LEUK EST (test code = Trace Negative - Negative 3263) POCT U NIT (test code = 3262) Neg Negative - Negative POCT U PROT (test code = 3259) Trace Negative - Negative POCT U GLU (test code = 3256) Neg Negative - Negative POCT U KETONE (test code = 3258) None Negative - Negative POCT U UROBILI (test code = 3260) . 0.2-1 POCT U BILI (test code = 3261) . Negative - Negative POCT U BLD (test code = 3257) Trace Negative - Negative POCT U COLOR (test code = 3266) POCT U APPEAR (test code = 3267) [facility] ONLY - SYPHILIS [id number] 15:23:03 Test Item Value Reference Range Interpretation Comments Syphilis IgG/IgM (test Non-reactive Non-reactive code = 17250-2) IGNACIA (test code = IGNACIA) Non-reactive - No serologic evidence of T. pallidum infection. Cannot exclude incubating or early syphilis. Submit a second specimen in 2-4 weeks if syphilis is clinically suspected. Equivocal - Further testing to follow. Reactive - Further testing to follow. Lab Interpretation (test Normal code = 57752-5) [facility] [id number] 05:34:40 Test Item Value Reference Range Interpretation Comments HIV 0.07 Negative Semi-quantitative (test code = 44764-3) IGNACIA (test code = Non-reactive for HIV-1 IGNACIA) antigen and HIV-1/HIV-2 antibodies. ?No laboratory evidence of HIV infection. ?Repeat in 2-4 weeks if acute HIV infection is suspected. [facility] URINALYSIS W SPECIFIC [id number] 15:26:00 Test Item Value Reference Range Interpretation Comments POCT U SP GRAV (test code = 3255) . 1.005-1.025 POCT PH U (test code = 3254) 6 mg/dl 5-8 POCT U LEUK EST (test code = Trace Negative - Negative 3263) POCT U NIT (test code = 3262) Neg Negative - Negative POCT U PROT (test code = 3259) Trace Negative - Negative POCT U GLU (test code = 3256) Neg Negative - Negative POCT U KETONE (test code = 3258) None Negative - Negative POCT U UROBILI (test code = 3260) . 0.2-1 POCT U BILI (test code = 3261) . Negative - Negative POCT U BLD (test code = 3257) Trace Negative - Negative POCT U COLOR (test code = 3266) POCT U APPEAR (test code = 3267) [facility] URINALYSIS W SPECIFIC [id number] 21:11:00 Test Item Value Reference Range Interpretation Comments POCT U SP GRAV (test code = 3255) . 1.005-1.025 POCT PH U (test code = 3254) 6 mg/dl 5-8 POCT U LEUK EST (test code = Trace Negative - Negative 3263) POCT U NIT (test code = 3262) Neg Negative - Negative POCT U PROT (test code = 3259) Trace Negative - Negative POCT U GLU (test code = 3256) Neg Negative - Negative POCT U KETONE (test code = 3258) None Negative - Negative POCT U UROBILI (test code = 3260) . 0.2-1 POCT U BILI (test code = 3261) . Negative - Negative POCT U BLD (test code = 3257) Trace Negative - Negative POCT U COLOR (test code = 3266) . POCT U APPEAR (test code = 3267) [facility] [id number] 12:59:00 Test Item Value Reference Range Interpretation Comments POCT U SP GRAV (test code = . 1.005-1.025 3255) POCT PH U (test code = 3254) . 5-8 POCT U LEUK EST (test code = . Negative - Negative 3263) POCT U NIT (test code = 3262) . Negative - Negative POCT U PROT (test code = 3259) trace Negative - Negative POCT U GLU (test code = 3256) negative Negative - Negative POCT U KETONE (test code = 3258) . Negative - Negative POCT U UROBILI (test code = . 0.2-1 3260) POCT U BILI (test code = 3261) . Negative - Negative POCT U BLD (test code = 3257) . Negative - Negative POCT U COLOR (test code = 3266) . POCT U APPEAR (test code = 3267) . [facility] [id number] 10:00:00 Test Item Value Reference Range Interpretation Comments INTERPRETATION:-Q SEE NOTE Screen ne gative for (test code = open NTD. 66050-8) MSAFP RISK OPEN <1 IN 5000 NTD-Q (test code = 02220-6) $MSAFP-Q (test 44.2 ng/mL code = 1834-1) ADJ MULTIPLE OF 0.74 MEDIAN-Q (test code = 37839-4) -Q (test code = See Below This is a s creening 8251-1) test, not a shira gnostic test. Thisrisk assessment repo rt is based in part o n demographicdata provided by the ordering physic kelly. Please notifyth e laboratory prom ptly if any data are in correct. Forassistance w ith recalculations, please call your local [facility] lab oratory. For assistance withinterpretat ion of these results, please contact [facility] al [facility] gen etic counselor or [phone] Inte rpretive CutoffsScreen P ositive for Open NTD: > or = 2.50 adjusted M OM ?> or = 1.90 ad justed MOM for ?insulin-depend ent diabetics ? > or = 4.00 adjusted M OM for ?twins ? > or = 3.50 adjusted M OM for ?twins insulin-depende nt ?diabetics ?> or = 4.50 adjusted M OM for ?tripletsFor additional info rmation, please refer [email or web address] m/faq/FA [email or web address](This link is being provided for informational/e ducation al purposes on y.) GESTATIONAL AGE-Q 20.1 weeks (test code = 54114-2) MATERNAL WEIGHT-Q 159 lbs (test code = 3142-7) EST'D DATE OF 09/02/2022 DELIVERY-Q (test code = 41405-2) LAVONNE DETERMINED LMP BY-Q (test code = 37176-0) MOTHER'S ETHNIC ORIGIN-Q (test CITIZEN [place] code = 99662-0) NUMBER OF 1 FETUSES-Q (test code = 13288-7) INSULIN-DEPEND NO DIABETIC-Q (test code = 46380-4) REPEAT SPECIMEN-Q NO (test code = 09206-5) HX OF NEURAL TUBE NO DEFECTS-Q (test code = 95383-9) PREV NO DOWN SYND-Q (test code = 35162-2) DONOR EGG-Q (test NO code = 10240-5) DONOR AGE: EGG NOT GIVEN RETRIEVAL-Q (test code = 15037-9) IGNACIA (test code = PERFORMED BY IGNACIA) [facility]; [address] [place] [address]; MULUGETA KINGSTON MD [facility] URINALYSIS W/O SPECIFIC [id number] 16:48:00 Test Item Value Reference Range Interpretation [...] code = 3257) n/a Negative - Negative [facility] URINALYSIS W/O SPECIFIC [id number] 20:31:00 Test Item Value Reference Range Interpretation [...] code = 3257) negative Negative - Negative [facility] URINALYSIS W SPECIFIC [id number] 20:01:00 Test Item Value Reference Range Interpretation [...] U APPEAR (test code = 3267) . [facility] URINALYSIS W SPECIFIC [id number] 20:01:00 Test Item Value Reference Range Interpretation [...] U APPEAR (test code = 3267) . [facility] [id number] 16:39:00 Test Item Value Reference Range Interpretation Comments POCT PREG (test code = 1605) Positive On board controls acceptable with C Yes Line (test code = 3574) POCT PREG LOT # (test code = 3570) POCT PREG TEST DATE (test code = 3576) [facility] URINALYSIS W/O SPECIFIC [id number] 16:39:00 Test Item Value Reference Range Interpretation [...] code = 3257) negative Negative - Negative [facility] [id number] 16:39:00 Test Item Value Reference Range Interpretation Comments POCT PREG (test code = 1605) Positive On board controls acceptable with C Yes Line (test code = 3574) POCT PREG LOT # (test code = 3575) POCT PREG TEST DATE (test code = 357) [facility] URINALYSIS W/O SPECIFIC [id number] 16:39:00 Test Item Value Reference Range Interpretation [...] code = 3257) negative Negative - Negative [facility] [id number] 16:39:00 Test Item Value Reference Range Interpretation Comments POCT PREG (test code = 1605) Positive On board controls acceptable with C Yes Line (test code = 3574) POCT PREG LOT # (test code = 3575) POCT PREG TEST DATE (test code = 3576) [facility] URINALYSIS W/O SPECIFIC [id number] 16:39:00 Test Item Value Reference Range Interpretation [...] code = 3257) negative Negative - Negative [facility] [id number] 16:39:00 Test Item Value Reference Range Interpretation Comments POCT PREG (test code = 1605) Positive On board controls acceptable with C Yes Line (test code = 3574) POCT PREG LOT # (test code = 3575) POCT PREG TEST DATE (test code = 3576) [facility] URINALYSIS W/O SPECIFIC [id number] 16:39:00 Test Item Value Reference Range Interpretation [...] code = 3257) negative Negative - Negative [facility] MOLECULAR [id number] 20:25:03 Test Item Value Reference Range Interpretation Comments POCT Molecular FluA (test code = Negative Negative 91334-7) POCT Molecular FluB (test code = Negative Negative 90773-1) Lab Interpretation (test code = Normal 67400-1) [facility] MOLECULAR [id number] 20:18:15 Test Item Value Reference Range Interpretation Comments POCT Molecular Strep (test code = Negative Negative 17578-7) Lab Interpretation (test code = Normal 89918-7) [facility] [id number] 20:10:00 Test Item Value Reference Range Interpretation Comments POCT PREG (test code = 1605) negative On board controls acceptable with positive C Line (test code = 3574) POCT PREG LOT # (test code = 3575) [id number] POCT PREG TEST DATE (test 06-14-2021 code = 3576) Lab Interpretation (test code = Normal 33367-3) [facility]
--- NOTE | 2022-09-10 00:55 | ER ---
Nurse's Notes [facility] Name: Roberto Carlos Mcdermott Age: 22 yrs Sex: Female : 2000 Arrival Date: 09/10/2022 Time: 00:15 Bed 11 Private MD: Diagnosis: Unspecified acute conjunctivitis, bilateral Presentation: 09/10 00:22 Chief complaint: Patient states: bilateral eye redness and drainage seen here on Wednesday for redness to right eye reports worsening of symptoms. Coronavirus screen: Vaccine status: Patient reports receiving the 2nd dose of the covid vaccine. Ebola Screen: Patient negative for fever greater than or equal to 101.5 degrees Fahrenheit, and additional compatible Ebola Virus Disease symptoms. Initial Sepsis Screen: Does the patient meet any 2 criteria? No. Patient's initial sepsis screen is negative. Does the patient have a suspected source of infection? No. Patient's initial sepsis screen is negative. Risk Assessment: Do you want to hurt yourself or someone else? Patient reports no desire to harm self or others. 00:22 Method Of Arrival: Ambulatory kl 00:22 Acuity: SHA 4 kl Triage Assessment: 00:28 General: Appears uncomfortable, Behavior is calm, cooperative. Pain: Complains of pain kl in right eye and left eye. EENT: Eyes with exudate noted from inner aspect of conjuctiva of right eye and inner aspect of conjunctiva of left eye Sclera/Cornea are reddened in outer aspect of conjuctiva of right eye, inner aspect of conjuctiva of right eye, outer aspect of conjuctiva of left eye and inner aspect of conjunctiva of left eye. Historical: - Allergies: 00:27 No Known Allergies; kl - Home Meds: 00:27 None [Active]; kl - PMHx: 00:27 None; kl - PSHx: 00:27 None; kl - Immunization history:: Adult Immunizations not up to date. - Social history:: Smoking status: Patient denies any tobacco usage or history of. Screenin:53 [facility] ED Fall Risk Assessment (Adult) History of falling in the last 3 months, eb1 including since admission No falls in past 3 months (0 pts) Confusion or Disorientation No (0 pts) Intoxicated or Sedated No (0 pts) Impaired Gait No (0 pts) Mobility Assist Device Used No (0 pt) Altered Elimination No (0 pt) Score/Fall Risk Level 0 - 2 = Low Risk Oriented to surroundings, Maintained a safe environment, Educated pt \T\ family on fall prevention, incl call for assistance when getting out of bed. Abuse screen: Denies threats or abuse. Denies injuries from another. Nutritional screening: No deficits noted. Tuberculosis screening: No symptoms or risk factors identified. Assessment: 00:53 General: Appears uncomfortable, Behavior is calm, cooperative. Pain: Complains of pain eb1 in left eye and right eye. EENT: Sclera/Cornea are reddened in outer aspect of conjuctiva of right eye, iris of right eye, inner aspect of conjuctiva of right eye, outer aspect of conjuctiva of left eye, iris of left eye and inner aspect of conjunctiva of left eye Reports pain in left eye and right eye Bilateral eye drainage. Vital Signs: 00:22 BP 129 / 94; Pulse 83; Resp 18; Temp 98.5; Pulse Ox 100% on R/A; Weight 73.48 kg (R); kl Height 5 ft. 5 in. ; 00:59 BP 119 / 89; Pulse 78; Resp 18; Pulse Ox 99% on R/A; kl 00:22 Body Mass Index 26.96 (73.48 kg, 165.1 cm) Visual Acuity: 00:53 Left Eye Visual acuity 20/40, ; Right Eye Visual acuity 20/30, ; Both Eyes Visual eb1 acuity 20/30; Without Lenses; ED Course: 00:17 Patient arrived in ED. jj6 00:25 Jaswinder Clay PA is PHCP. cp 00:25 Adama Orellana MD is Attending Physician. cp 00:27 Triage completed. kl 00:54 Janet Campbell MD is Referral Physician. cp 00:55 Arm band placed on Patient placed in an exam room, on a stretcher, on pulse oximetry. eb1 00:55 Patient has correct armband on for positive identification. Bed in low position. Call eb1 light in reach. Side rails up X 1. 01:00 No provider procedures requiring assistance completed. kl 01:00 Patient did not have IV access during this emergency room visit. kl Administered Medications: 00:52 Drug: Gentamicin Ophthalmic Drops 0.3 % 2 drops Route: Ophthalmic; Site: both eyes; eb1 Outcome: 00:55 Discharge ordered by . rené 01:00 Discharged to home ambulatory. ene 01:00 Condition: stable 01:00 Discharge instructions given to patient, Instructed on discharge instructions, follow up and referral plans. medication usage, Demonstrated understanding of instructions, follow-up care, medications, Prescriptions given X 1. 01:00 Patient left the ED. Signatures: Terri Carbajal RN RN Jaswinder Kapoor PA PA cp Basinger, Emily, RN RN eb1 Aleshia Nelson jj6
--- NOTE | 2022-09-10 00:55 | EDPHYS ---
Physician Documentation [facility] Name: Roberto Carlos Mcdermott Age: 22 yrs Sex: Female : 2000 Arrival Date: 09/10/2022 Time: 00:15 Bed 11 Private MD: ED Physician Adama Orellana HPI: 09/10 00:35 This 22 yrs old Black Female presents to ER via Ambulatory with complaints of Eye cp Swelling, Drainage From Eye. 00:35 The patient is experiencing matting or discharge, redness. Onset: The symptoms/episode cp began/occurred 1 week(s) ago. Duration: the symptoms are continuous, getting worse. 00:35 Associated signs and symptoms: Pertinent negatives: ear ache, fever, headache, runny cp nose. Patient does not utilize any form of vision correction. Historical: - Allergies: 00:27 No Known Allergies; kl - Home Meds: 00:27 None [Active]; kl - PMHx: 00:27 None; kl - PSHx: 00:27 None; kl - Immunization history:: Adult Immunizations not up to date. - Social history:: Smoking status: Patient denies any tobacco usage or history of. ROS: 00:40 Eyes: Positive for discharge, matting, redness, Negative for pain, vision loss. cp 00:40 ENT: Negative for injury, pain, and discharge. cp 00:40 Constitutional: Negative for body aches, chills, fever, poor PO intake. 00:40 Respiratory: Negative for cough, shortness of breath, wheezing. 00:40 Skin: Negative for cellulitis, rash. 00:40 Neuro: Negative for altered mental status, headache, weakness. 00:40 All other systems are negative. Exam: 00:45 Constitutional: The patient appears in no acute distress, alert, awake, non-toxic, well cp developed, well nourished. 00:45 Head/Face: Normocephalic, atraumatic. cp 00:45 Eyes: Periorbital structures: appear normal, Pupils: equal, round, and reactive to light and accomodation, Extraocular movements: intact throughout, Conjunctiva: exudate, bilaterally, injected, bilaterally. 00:45 ENT: External ear(s): are unremarkable, Nose: is normal, Mouth: Lips: moist, Oral mucosa: pink and intact, moist, Posterior pharynx: is normal, airway is patent, no erythema, no exudate. 00:45 Neck: ROM/movement: is normal, is supple, without pain, no range of motions limitations, no meningismus, no nuchal rigidity. 00:45 Chest/axilla: Inspection: normal. 00:45 Cardiovascular: Rate: normal. 00:45 Skin: cellulitis, is not appreciated, no rash present. 00:52 Visual Acuity: I have reviewed the nursing documentation. cp Vital Signs: 00:22 BP 129 / 94; Pulse 83; Resp 18; Temp 98.5; Pulse Ox 100% on R/A; Weight 73.48 kg (R); kl Height 5 ft. 5 in. ; 00:59 BP 119 / 89; Pulse 78; Resp 18; Pulse Ox 99% on R/A; kl 00:22 Body Mass Index 26.96 (73.48 kg, 165.1 cm) kl Visual Acuity: 00:53 Left Eye Visual acuity 20/40, ; Right Eye Visual acuity 20/30, ; Both Eyes Visual eb1 acuity 20/30; Without Lenses; MDM: 00:33 Patient medically screened. cp 00:45 Differential diagnosis: Corneal abrasion of Corneal ulcer of Foreign body in Acute cp iritis of 00:54 Data reviewed: vital signs, nurses notes. cp 00:54 I considered the following discharge prescriptions or medication management in the cp emergency department Medications were administered in the Emergency Department. See MAR. Counseling: I had a detailed discussion with the patient and/or guardian regarding: the historical points, exam findings, and any diagnostic results supporting the discharge/admit diagnosis, to return to the emergency department if symptoms worsen or persist or if there are any questions or concerns that arise at home. 09/10 00:36 Order name: Visual Acuity; Complete Time: 00:52 cp Administered Medications: 00:52 Drug: Gentamicin Ophthalmic Drops 0.3 % 2 drops Route: Ophthalmic; Site: both eyes; eb1 Disposition: 01:24 Co-signature as Attending Physician, Adama Orellana MD I agree with the assessment sp4 and plan of care. I reviewed the patient's care provided by the Advanced Practice Provider and agree with the diagnosis and treatment plan. Disposition Summary: 09/10/22 00:55 Discharge Ordered Location: Home cp Problem: an ongoing problem cp Symptoms: have improved cp Condition: Stable cp Diagnosis - Unspecified acute conjunctivitis, bilateral cp Followup: cp - With: Janet Campbell MD - When: 1 - 2 days - Reason: Recheck today's complaints Discharge Instructions: - Discharge Summary Sheet cp - Bacterial Conjunctivitis, Adult cp Forms: - Medication Reconciliation Form cp - Thank You Letter cp - Antibiotic Education cp - Prescription Opioid Use cp - Patient Portal Instructions cp Prescriptions: - Gentamicin 0.3 % Ophthalmic Drops - instill 1 drop by OPHTHALMIC route every 4 hours for 7 days; 1 unit; Refills: cp 0, Product Selection Permitted Signatures: Terri Carbajal RN RN kl Jaswinder Clay PA PA Kaitlin Marquez RN RN eb1 Adama Orellana MD MD sp4
[2022-09-10] MEDS ORDERED: GENTAMICIN 0.3% OPTH DROP 5ML ONE (00:56)
[2022-09-10 01:07] VITALS: TEMP 98.5
[2022-09-10 01:08] VITALS: BP 119/89; O2SAT 99
== END 2022-09-10 01:00 | disposition home or self-care (01) ==
LOC: ER 00:15
DX: H10.33 Unspecified acute conjunctivitis, bilateral (principal)
CPT/HCPCS: 99284

== ENCOUNTER 2022-12-02 07:53 | Emergency (ER) | payer OTHER ==
--- OUTSIDE RECORDS SUMMARY | 2022-12-02 08:11 | XMS REPORT | Continuity of Care Document ---
:2000 Author Organization [facility] t Address [address] [place] [address] Care Team Providers Name Role Phone ALESHIA DODGE Primary Care Physician Unavailable YUE XIONG Attending Clinician Unavailable Yue Xiong CNM Attending Clinician Doctor Unassigned, [place] Attending Clinician Unavailable Josette Lal MD Attending Clinician [phone] Anders Dash MD Attending Clinician Frederic Baugh MD Attending Clinician EVAN ANTONY Attending Clinician Unavailable 1, [facility] Attending Clinician Unavailable Shruthi Eaton Attending Clinician Provider, [place]-Rmchfrancis Temp Attending Clinician Unavailable Julian Mercedes Attending Clinician [phone] JULIAN ROLAND Attending Clinician Unavailable Jaswinder Lora DO Attending Clinician JASWINDER LORA Attending Clinician Unavailable ANA BOWMAN Attending Clinician Unavailable Ana Bowman MD Attending Clinician Esther Montes MD Attending Clinician ESTHER MONTES Attending Clinician Unavailable ESTHER MONTES Attending Clinician Unavailable Benjamin GOLDSTEIN, Aleshia Spangler Attending Clinician ALESHIA DODGE Attending Clinician Unavailable MONIQUE BARROSO Attending Clinician Unavailable Dharmesh BLOCK, Monique Meza Attending Clinician Jimmy RICO, Kimberly Attending Clinician Unavailable 2, [facility] Room Attending Clinician Unavailable Kal BLOCK, Iglesia Almaguer Attending Clinician IGLESIA BOWDEN Attending Clinician Unavailable Ultrasound, Sug-m Attending Clinician Unavailable QING MORLEY Attending Clinician Unavailable Anna Cooley Attending Clinician GINA RICARDO Attending Clinician Unavailable Gina Ricardo DO Attending Clinician Qing Morley MD Attending Clinician Harleen Miles MD Attending Clinician HARLEEN MILES Attending Clinician Unavailable Ultrasound, Ang-m Attending Clinician Unavailable PARVEZ CHUNG Attending Clinician Unavailable Parvez Chung PA-C Attending Clinician 2, [facility] Attending Clinician Unavailable Rach Oropeza RN Attending Clinician Unavailable ANNA MCCOY Attending Clinician Unavailable EbHamida Long Attending Clinician Shaniqua Kwong RN Attending Clinician Unavailable HAMIDA NIETO Attending Clinician Unavailable Samia Tejada NP Attending Clinician QING MORLEY Admitting Clinician Unavailable Josette Lal MD Admitting Clinician [phone] JOSETTE LAL Admitting Clinician Unavailable MONIQUE BARROSO Admitting Clinician Unavailable Monique Barroso MD Admitting Clinician HARLEEN MILES Admitting Clinician Unavailable Qing Morley MD Admitting Clinician Payers Payer Name Policy Type Policy Number Effective Date Expiration Date Bari SIMON [id number] 2022 00:00:00 [id number] 2015 00:00:00 Problems Condition Condition Condition Status Onset Resolution Last Treating Co mments Source Name Details Category Date Date Treatment Clinician Date Anemia, Anemia, Disease Active Univers 7-15 it y of 00:00: [place] [facility] Maternal Maternal Disease Active Unive rs varicella, varicella, 7-15 it [place] of non-immune [place]-immune [place] [facility] Disease Active Univers (spontaneo (spontaneo 7-14 it y of [place] vaginal [place] vaginal [place] delivery[place] delivery[place] 00 [facility] Single Single Disease Active Univers live live 7-14 it y of 00:00: [place] [facility] Chorioamni Chorioamni Disease Active U nivers onitis onitis 7-14 ity of 00:00: [place] [facility] Obstetrica Obstetrica Disease Active U nivers l l 7-14 ity of laceration laceration 00:[place] [facility] Forceps Forceps Disease Active Univers delivery delivery 7-14 ity of 00:00: [place] [facility] 39 weeks 39 weeks Disease Active Unive rs gestation gestation 7-12 ity of of of 00:00: [place] 00 [facility] Obesity Obesity Disease Active Univers (BMI (BMI 7-12 ity of 30-39.9) 30-39.9) 00:00: [place] [facility] Obesity Obesity Disease Active Univers affecting affecting 7-03 ity of 00:00: Josephine hoyos 00 [facility] Hematuria, Hematuria, Disease Active U nivers unspecifie unspecifie 6-26 it y of d type d type 00:00: [place] [facility] Susceptibl Susceptibl Disease Active U nivers e [...] pain 5-24 ity of during during 00:00: [place] 00 [facility] in third in third Branch trimester trimester [...] ity of 25.0-29.9) 25.0-29.9) 00:00: [place] [facility] Vaginal Vaginal Disease Active Univers bleeding bleeding 4-15 ity of in in 00:00: [place] , , 00 Me dical second second Branch trimester trimester 26 weeks 26 weeks Disease Active Unive rs gestation gestation 4-15 ity of of of 00:00: [place] 00 [facility] Branch Umbilical Umbilical Disease Active Uni vers vein vein 4-05 ity of abnormalit abnormalit 00:00[place] y y 00 Medical affecting affecting Bran ch , , single or single or unspecifie unspecifie d fetus d fetus BV BV Disease Active Univers (bacterial (bacterial 1-12 it y of vaginosis) vaginosis) 00:00: [place] [facility] Supervisio Supervisio Disease Active U nivers n of n of 1-10 ity of high-risk high-risk 00:[place] [facility] History of History of Disease Active U nivers miscarriag miscarriag 1-10 it y of e e 00:00: [place] [facility] Vaginal Vaginal Disease Active 2016-02 Univers discharge discharge 0-06 ity of 00:00: [place] [facility] Depo-Prove Depo-Prove Disease Active U nivers ra ra 8-18 ity of contracept contracept [place] [facility] status [facility] All[facility]ies, Adverse Reactions, Alerts Allergy Allergy Status Severity Reaction(s) Onset Inactive Treating Comm ents Source Name Type Date Date Clinician NO KNOWN Drug Active Univers ALLERGIE Class ity of S [facility] Social History Social Habit Start Date Stop Date Quantity Comments Source ASSERTION 2021-12-10 [facility] 00:00:00 [facility] Gender identity Universit y [facility] Sexual orientation Univer sity [facility] Exposure to 2022-07-12 2022-07-22 Not sure [facility] SARS-CoV-2 (event) 00:00:00 20:23:00 [facility] History of Social 2022-01-17 2022-01-17 Univers ity of function 00:00:00 00:00:00 [facility] Tobacco use and 2022-01-17 2022-01-17 Smokeless Universit y of exposure 00:00:00 00:00:00 tobacco non-user [facility] [place] [facility] Alcohol intake 2022-01-17 2022-01-17 0 /d [facility] 00:00:00 00:00:00 [facility] Sex Assigned At [birth year] Universit y of 00:00:00 00:00:00 [facility] Smoking Status Start Date Stop Date Source Never smoked tobacco [facility] Medications Ordered Filled Start Stop Current Ordering Indication Dosage Frequency Signature Comments Components Source Medication Medication Date Date Medication? Clinician (SIG) Name Name gentamicin 2022- No 5mg/kg 340 mg Un [place] 340 mg in 08-29 (rounded ity o [...] Site: Pelvic
Duration of Therapy: 7 days 2022-0 Yes [id number] 1{tbl} Take 1 Univers vitamin 7-15 tablet by ity of w/FA tablet 00:00: mouth [place] 00 the Medical morning. Branch docusate 0 Yes [id number] 200mg Take 2 U nivers 100 mg 7-15 capsules ity of capsule 00:00: by mouth [place] 00 once daily Medical as needed Branch for Constipati on. ferrous 2022-0 Yes [id number] 325mg Take 1 Un elizabeth sulfate 325 7-15 tablet by ity of mg (65 mg 00:00: [place] iron[place] 00 the Medical tablet morning Branch and 1 tablet in the evening. ibuprofen 2022-0 Yes [id number] 600mg Take 1 Univers 600 mg 7-15 tablet by ity of tablet 00:00: mouth [place] 00 every 6 Medical (six) Branch hours as needed (Pain). Take with food or milk. 2022-0 Yes [id number] 1{tbl} Take 1 Univers vitamin 7-15 tablet by ity of w/FA tablet 00:00: [place] the Medical morning. Branch docusate Yes [id number] 200mg Take 2 U nivers 100 mg 7-15 capsules ity of capsule 00:00: by mouth [place] 00 once daily Medical as needed Branch for Constipati on. ferrous 2022-0 Yes [id number] 325mg Take 1 Un elizabeth sulfate 325 7-15 tablet by ity of mg (65 mg 00:00: [place] iron[place] 00 the Medical tablet morning Branch and 1 tablet in the evening. ibuprofen 2022-0 Yes [id number] 600mg Take 1 Univers 600 mg 7-15 tablet by ity of tablet 00:00: mouth [place] 00 every 6 Medical (six) Branch hours as needed (Pain). Take with food or milk. 2022-0 Yes [id number] 1{tbl} Take 1 Univers vitamin 7-15 tablet by ity of w/FA tablet 00:00: [place] 00 the Medical morning. Branch docusate 0 Yes [id number] 200mg Take 2 U nivers 100 mg 7-15 capsules ity of capsule 00:00: by mouth [place] 00 once daily Medical as needed Branch for Constipati on. ferrous 2022-0 Yes [id number] 325mg Take 1 Un elizabeth sulfate 325 7-15 tablet by ity of mg (65 mg 00:00: [place] iron[place] 00 the Medical tablet morning Branch and 1 tablet in the evening. ibuprofen 2022-0 Yes [id number] 600mg Take 1 Univers 600 mg 7-15 tablet by ity of tablet 00:00: mouth [place] 00 every 6 Medical (six) Branch hours as needed (Pain). Take with food or milk. ampicillin 2022-0 202- No 2g 2,000 mg Un elizabeth (POLYCILLIN [...] Pelvic
Duration of therapy: 72 hours ibuprofen 2022-0 Yes 600mg 600 mg, [facility] ers (IBU) 7 Oral, ity of tablet 600 05:54: Q6HPRN, [place] mg 04 Starting Medical on Wed Branch 08/28/22 at 0054, Until Discontinu ed, Routine, Pain (scale 4-6) acetaminoph 2022-0 Yes 650mg 650 mg, Un elizabeth en 14 Oral, ity of (TYLENOL) 05:54: Q6HPRN, [place] tablet 650 04 Starting Medic al mg on Wed Branch 08/28/22 at 0054, Until Discontinu ed, Routine, Pain (scale 1-3) diphenhydrA 2022-0 Yes 25mg 25 mg, Univ ers MINE 7-14 Oral, ity of (BENADRYL) 05:54: Q6HPRN, [place] tablet 25 04 Starting Medica l mg on Wed Branch 08/28/22 at 0054, Until Discontinu ed, Routine, Sleep, Itching ondansetron 2022-0 Yes 4mg 4 mg, Slow Univers (ZOFRAN 7-14 IV Push, ity of (PF)) 05:54: Q8HPRN, [place] injection 4 04 Starting Medi sheela mg on Wed Branch 08/28/22 at 0054, Until Discontinu ed, Routine, Nausea and Vomiting (N/V) simethicone 2022-0 Yes 160mg 160 mg, Un elizabeth (GAS RELIEF 08-28 Oral, ity of (SIMETHICON 05:54: PC+HSPRN, [place] E)) 04 Starting Medical chewable on Wed Branch tablet 160 08/28/22 at mg 0054, Until Discontinu ed, Routine, Gas docusate 2022-0 Yes 200mg 200 mg, Unive rs (COLACE) 08-28 Oral, ity of capsule 200 05:54: QDAILYPRN, [place] mg 04 Starting Medical on Wed Branch 08/28/22 at 0054, Until Discontinu ed, Routine, Constipati on magnesium 2022-0 Yes 30mL 30 mL, Univer s hydroxide 08-28 Oral, ity of (MILK OF 05:54: QDAILYPRN, [place] MAGNESIA) 04 Starting Medica l 400 mg/5 mL on Wed Branch suspension 08/28/22 at 30 mL 0054, Until Discontinu ed, Routine, Constipati on benzocaine- 2022-0 Yes Topical, Un [place] menthol 08-28 PRN, ity of (DERMOPLAST 05:54: Starting [place] ) 20-0.5 % 04 on Wed Medical topical 08/28/22 at Branch spray 0054, Until Discontinu ed, Routine, Perineum discomfort lactated 2022-0 202- No 1000mL at 125 Univ ers ringers [...] then 150 mL/hr for 1 hr.
oxytocin Yes 300mL/h 300 mL/hr, Univers (PITOCIN) 08-28 [...] last modificati on) on [place] 08/27/22 at 2014, Administer over 60 Minutes, 250 mL
Reas on for Anti-Infec tive: Empiric Therapy for Suspected Infection< br>Empiric Therapy Site: Pelvic
Duration of therapy: 72 hours acetaminoph 2022- No 1000mg 1,000 mg, Univers en 08-28 Oral, ONCE ity of (TYLENOL) 01:15: 00:34 NOW, 1 [place] tablet 00 :00 dose, On Medical 1,000 mg [place] Branch 08/27/22 at 2014, Routine ampicillin 2022- No 2g 2,000 mg Un elizabeth (POLYCILLIN 08-28 (2 g), IV it y of -N) 2,000 01:15: 06:02 Piggyback, [place] mg in NaCl 00 :33 Q6H ABX, Medic al 0.9% (NS) First dose Bran ch 100 mL on [place] MINI-BAG 08/27/22 at 2015, Until Discontinu ed, Administer over 30 Minutes, [...] CONTINUOUS ity of (NAROPIN 12:19: 06:11 PRN, [place] ()) 00 :37 Starting Medical epidural on [place] Branch infusion 08/27/22 at 0719, Until Wed08/28/22 at 0111, Routine, Intra-op ropivacaine 2022- No Epidural, Univers 0.2 % 08-27 CONTINUOUS ity of (NAROPIN 12:19: 06:11 PRN, [place] ()) 00 :37 Starting Medical epidural on [place] [...] Intra-op lidocaine-e 2022- No Intraderma Univers pinephrine 08-27- l, ONCE ity o f (XYLOCAINE 12:17: 06:11 INTRA [place] W/EPINEPHRI 00 :37 PROCEDURE, Me dical NE) 1.5 Starting Branch %-1:200,000 on [place] injection 08/27/22 at 0717, Until 08/28/22 at 0111, Routine, Intra-op oxytocin 0 Yes 2mU/min at 2-40 Uni vers (PITOCIN) - mL/hr, IV ity o f 30 units [...] 500mL at 999 Univer s ringers IV 08-27 mL/hr, 500 ity of infusion 09:29: mL, [...] over 15 Minutes, ONCE, 1 dose, On [place] 08/27/22 at 0030, Routine morpHINE (4 2022- No 4mg 4 mg, Slow Univers mg/mL) 08-27 IV Push, ity of injection 4 05:15: 05:22 ONCE, 1 [place] mg 00 :00 dose, On Medical [place] Branch 08/27/22 at 0015, Routine sodium 3-0 Yes 30mL 30 mL, Univers citrate-cit 7-12 Oral, ity of bravo acid 20:35: PRE-PROCED [place] (BICITRA) 38 URE ONCE, Medic al 500-334 1 dose, Branch mg/5 mL Starting solution 30 on Wed mL 08/26/22 at 1535, Until Discontinu ed, Routine, Surgery/Pr ocedure lactated 3-0 Yes 500mL at 999 Univer s ringers IV 7-12 mL/hr, 500 ity of infusion 20:35: mL, IV [place] 500 mL 38 Infusion, Medical PRN - SEE Branch INSTRUCTIO NS, 1 dose, Starting on Wed08/26/22 at 1535, Until Discontinu ed, Routine morpHINE (4 2022-0 Yes 4mg 4 mg, Slow Univers mg/mL) 7-12 IV Push, ity of injection 4 20:31: Q4HPRN, [place] mg 20 Starting Medical on Wed Branch 08/26/22 at 1531, Until Discontinu ed, Routine, Pain (scale 4-6) sodium 2022-0 Yes 30mL 30 mL, Univers citrate-cit 7-12 Oral, ity of bravo acid 20:15: PRE-PROCED [place] (BICITRA) 10 URE ONCE, Medic al 500-334 1 dose, Branch mg/5 mL Starting solution 30 on Wed mL 08/26/22 at 1515, Until Discontinu ed, Routine, Surgery/Pr ocedure lidocaine 2022-0 Yes 50mL 50 mL, Univer s 1% 7-12 Infiltrati ity of (XYLOCAINE) 20:15: on, [...] only as a local anesthetic . lactated 3-0 Yes 500mL at 999 Univer s ringers [...] Until Discontinu ed, Routine famotidine 2022-0 Yes [id number] 20mg Take 1 U nivers (PEPCID) 20 5-26 tablet by ity of mg tablet 00:00: [place] 00 the [facility] morning Branch and 1 tablet in the evening. famotidine 3-0 Yes [id number] 20mg Take 1 U nivers (PEPCID) 20 5-26 tablet by ity of mg tablet 00:00: [place] 00 the [facility] morning Branch and 1 tablet in the evening. famotidine 2023-0 Yes [id number] 20mg Take 1 U nivers (PEPCID) 20 5-26 tablet by ity of mg tablet 00:00: [place] 00 the [facility] morning Branch and 1 tablet in the evening. famotidine 3-0 Yes [id number] 20mg Take 1 U nivers (PEPCID) 20 5-26 tablet by ity of mg tablet 00:00: [place] 00 the [facility] morning Branch and 1 tablet in the evening. famotidine 2023-0 Yes [id number] 20mg Take 1 U nivers (PEPCID) 20 5-26 tablet by ity of mg tablet 00:00: [place] 00 the [facility] morning Branch and 1 tablet in the evening. famotidine 2023-0 Yes [id number] 20mg Take 1 U nivers (PEPCID) 20 5-26 tablet by ity of mg tablet 00:00: [place] 00 the [facility] morning Branch and 1 tablet in the evening. famotidine 3-0 Yes [id number] 20mg Take 1 U nivers (PEPCID) 20 5-26 tablet by ity of mg tablet 00:00: [place] 00 the Medical morning Branch and 1 tablet in the evening. famotidine 2022-0 Yes [id number] 20mg Take 1 U nivers (PEPCID) 20 5-26 tablet by ity of mg tablet 00:00: [place] 00 the Medical morning Branch and 1 tablet in the evening. famotidine 2022-0 Yes [id number] 20mg Take 1 U nivers (PEPCID) 20 5-26 tablet by ity of mg tablet 00:00: [place] 00 the Medical morning Branch and 1 tablet in the evening. famotidine 2022-0 Yes [id number] 20mg Take 1 U nivers (PEPCID) 20 5-26 tablet by ity of mg tablet 00:00: [place] 00 the Medical morning Branch and 1 tablet in the evening. famotidine 2022-0 Yes [id number] 20mg Take 1 U nivers (PEPCID) 20 5-26 tablet by ity of mg tablet 00:00: [place] 00 the Medical morning Branch and 1 tablet in the evening. famotidine 2022-0 Yes [id number] 20mg Take 1 U nivers (PEPCID) 20 5-26 tablet by ity of mg tablet 00:00: [place] 00 the Medical morning Branch and 1 tablet in the evening. famotidine 2022-0 Yes [id number] 20mg Take 1 U nivers (PEPCID) 20 5-26 tablet by ity of mg tablet 00:00: [place] 00 the Medical morning Branch and 1 tablet in the evening. famotidine 3-0 Yes [id number] 20mg Take 1 U nivers (PEPCID) 20 5-26 tablet by ity of mg tablet 00:00: [place] 00 the Medical morning Branch and 1 tablet in the evening. famotidine 3-0 Yes [id number] 20mg Take 1 U nivers (PEPCID) 20 5-26 tablet by ity of mg tablet 00:00: [place] 00 the Medical morning Branch and 1 tablet in the evening. famotidine 3-0 Yes [id number] 20mg Take 1 U nivers (PEPCID) 20 5-26 tablet by ity of mg tablet 00:00: [place] 00 the Medical morning Branch and 1 tablet in the evening. famotidine 2022-0 Yes [id number] 20mg Take 1 U nivers (PEPCID) 20 5-26 tablet by ity of mg tablet 00:00: [place] 00 the Medical morning Branch and 1 tablet in the evening. famotidine 2022-0 Yes [id number] 20mg Take 1 U nivers (PEPCID) 20 5-26 tablet by ity of mg tablet 00:00: [place] 00 the Medical morning Branch and 1 tablet in the evening. famotidine 2022-0 Yes [id number] 20mg Take 1 U nivers (PEPCID) 20 5-26 tablet by ity of mg tablet 00:00: [place] 00 the Medical morning Branch and 1 tablet in the evening. famotidine 2022-0 Yes [id number] 20mg Take 1 U nivers (PEPCID) 20 5-26 tablet by ity of mg tablet 00:00: [place] 00 the Medical morning Branch and 1 tablet in the evening. famotidine 2022-0 Yes [id number] 20mg Take 1 U nivers (PEPCID) 20 5-26 tablet by ity of mg tablet 00:00: [place] 00 the Medical morning Branch and 1 tablet in the evening. famotidine 2022-0 Yes [id number] 20mg Take 1 U nivers (PEPCID) 20 5-26 tablet by ity of mg tablet 00:00: [place] 00 the Medical morning Branch and 1 tablet in the evening. famotidine 2022-0 Yes [id number] 20mg Take 1 U nivers (PEPCID) 20 5-26 tablet by ity of mg tablet 00:00: [place] 00 the Medical morning Branch and 1 tablet in the evening. famotidine 2022-0 Yes [id number] 20mg Take 1 U nivers (PEPCID) 20 5-26 tablet by ity of mg tablet 00:00: [place] 00 the Medical morning Branch and 1 tablet in the evening. famotidine 2022-0 Yes [id number] 20mg Take 1 U nivers (PEPCID) 20 5-26 tablet by ity of mg tablet 00:00: [place] 00 the Medical morning Branch and 1 tablet in the evening. famotidine 2022-0 Yes [id number] 20mg Take 1 U nivers (PEPCID) 20 5-26 tablet by ity of mg tablet 00:00: [place] 00 the Medical morning Branch and 1 tablet in the evening. famotidine 2022-0 Yes [id number] 20mg Take 1 U nivers (PEPCID) 20 5-26 tablet by ity of mg tablet 00:00: [place] 00 the Medical morning Branch and 1 tablet in the evening. famotidine 2022-0 Yes [id number] 20mg Take 1 U nivers (PEPCID) 20 5-26 tablet by ity of mg tablet 00:00: [place] 00 the Medical morning Branch and 1 tablet in the evening. famotidine 0 2022- No [id number] 20mg Take 1 Univers (PEPCID) 20 5-26 07-15 tablet by it y of mg tablet 00:00: 00:00 mouth in [place] 00 :00 the Medical morning Branch and 1 tablet in the evening. PROMETHAZIN 2022-0 Yes [id number] TAKE 1 Univers E 25 mg 4-24 TABLET BY ity of tablet 00:00: MOUTH [place] 00 EVERY 6 Medical HOURS Branch NEEDED FOR NAUSEA AND VOMITING . PROMETHAZIN 2022-0 Yes [id number] TAKE 1 Univers E 25 mg 4-24 TABLET BY ity of tablet 00:00: MOUTH [place] 00 EVERY 6 Medical HOURS Branch NEEDED FOR NAUSEA AND VOMITING . PROMETHAZIN 2022-0 Yes [id number] TAKE 1 Univers E 25 mg 4-24 TABLET BY ity of tablet 00:00: MOUTH [place] 00 EVERY 6 Medical HOURS Branch NEEDED FOR NAUSEA AND VOMITING . PROMETHAZIN 2022-0 Yes [id number] TAKE 1 Univers E 25 mg 4-24 TABLET BY ity of tablet 00:00: MOUTH [place] 00 EVERY 6 Medical HOURS Branch NEEDED FOR NAUSEA AND VOMITING . PROMETHAZIN 2022-0 Yes [id number] TAKE 1 Univers E 25 mg 4-24 TABLET BY ity of tablet 00:00: MOUTH [place] 00 EVERY 6 Medical HOURS Branch NEEDED FOR NAUSEA AND VOMITING . PROMETHAZIN 2022-0 Yes [id number] TAKE 1 Univers E 25 mg 4-24 TABLET BY ity of tablet 00:00: MOUTH [place] 00 EVERY 6 Medical HOURS Branch NEEDED FOR NAUSEA AND VOMITING . PROMETHAZIN 2022-0 Yes [id number] TAKE 1 Univers E 25 mg 4-24 TABLET BY ity of tablet 00:00: MOUTH [place] 00 EVERY 6 Medical HOURS Branch NEEDED FOR NAUSEA AND VOMITING . PROMETHAZIN 2022-0 Yes [id number] TAKE 1 Univers E 25 mg 4-24 TABLET BY ity of tablet 00:00: MOUTH [place] 00 EVERY 6 Medical HOURS Branch NEEDED FOR NAUSEA AND VOMITING . PROMETHAZIN 0 3- No [id number] TAKE 1 Univers E 25 mg 4-24 05-26 TABLET BY ity of tablet 00:00: 00:00 MOUTH [place] 00 :00 EVERY 6 Medical HOURS Branch NEEDED FOR NAUSEA AND VOMITING . Nitrofurant 2022- No 100mg 100 mg, U nivers oin&Nit. 3-07 03-07 Oral, ity of Macrocryst 06:00: 05:53 ONCE, 1 [place] (MACROBID) 00 :00 dose, On Medic al 100 mg 04/21/22 Branch capsule 100 at 0000, mg Routine
Reason for Anti-Infec tive: Documented Infection< br>Documen jaden Infection Site: Urine
D uration of Therapy: Other (see Comments) acetaminoph Yes 650mg 650 mg, Un [place] en 3-07 Oral, ity of (TYLENOL) 05:47: Q6HPRN, [place] tablet 650 03 Starting Medic al mg on Mon Branch 04/20/22 at 2347, Until Discontinu ed, Routine, Pain (scale 4-6) Nitrofurant 2022-0 Yes [id number] 100mg Take 1 Univers oin&Nit. 3-07 capsule by ity o f Macrocryst 00:00: mouth in [place] 100 mg 00 the Medical capsule morning Branch and 1 capsule in the evening. Nitrofurant 2022-0 Yes [id number] 100mg Take 1 Univers oin&Nit. 3-07 capsule by ity o f Macrocryst 00:00: mouth in [place] 100 mg 00 the Medical capsule morning Branch and 1 capsule in the evening. Nitrofurant 2022-0 Yes [id number] 100mg Take 1 Univers oin&Nit. 3-07 capsule by ity o f Macrocryst 00:00: mouth in [place] 100 mg 00 the Medical capsule morning Branch and 1 capsule in the evening. Nitrofurant 2022- No [id number] 100mg Take 1 Univers oin&Nit. 3-07 04-05 capsule by ity of Macrocryst 00:00: 00:00 mouth in [place] 100 mg 00 :00 the Medical capsule morning Branch and 1 capsule in the evening. metroNIDAZO 2022-0 Yes [id number] 500mg Take 1 Univers LE 500 mg 1-12 tablet by ity o f tablet 00:00: mouth in [place] 00 the Medical morning Branch and 1 tablet in the evening. metroNIDAZO 2022-0 Yes [id number] 500mg Take 1 Univers LE 500 mg 1-12 tablet by ity o f tablet 00:00: mouth in [place] 00 the Medical morning Branch and 1 tablet in the evening. metroNIDAZO 2022-0 Yes [id number] 500mg Take 1 Univers LE 500 mg 1-12 tablet by ity o f tablet 00:00: mouth in [place] 00 the Medical morning Branch and 1 tablet in the evening. metroNIDAZO 2022-0 2022- No [id number] 500mg Take 1 Univers LE 500 mg 02-26 tablet by ity of tablet 00:00: 00:00 mouth in [place] 00 :00 the Medical morning Branch and 1 tablet in the evening. metroNIDAZO 2022-0 2022- No [id number] 500mg Take 1 Univers LE 500 mg 02-25 tablet by ity of tablet 00:00: 05:59 mouth in [place] 00 :00 the Medical morning Branch and 1 tablet in the evening. Do all this for 7 days. metroNIDAZO 2022-0 2022- No [id number] 500mg Take 1 Univers LE 500 mg 02-25 tablet by ity of tablet 00:00: 05:59 mouth in [place] 00 :00 the Medical morning Branch and 1 tablet in the evening. Do all this for 7 days. metroNIDAZO 2022-0 2022- No [id number] 500mg Take 1 Univers LE 500 mg 02-25 tablet by ity of tablet 00:00: 05:59 mouth in [place] 00 :00 the Medical morning Branch and 1 tablet in the evening. Do all this for 7 days. 2021-02 Yes [id number] Take 1 Uni vers vit 2-03 combo pack ity of 33-iron-fol 00:00: daily [place] ic-dha 00 Medical (SELECT-OB Branch + DHA) 29 mg iron-1 mg -250 mg combo pack 2021-02 Yes [id number] Take 1 Uni vers vit 2-03 combo pack ity of 33-iron-fol 00:00: daily [place] ic-dha 00 Medical (SELECT-OB Branch + DHA) 29 mg iron-1 mg -250 mg combo pack 2021-02 Yes [id number] Take 1 [facility]03 combo pack [facility] of 33-iron-fol 00:00: daily [place] [facility] 00 [facility] ([facility] + D[facility]) 29 mg iron-1 mg -250 mg combo pack 2021-02 Yes [id number] Take 1 [facility] 2-03 combo pack ity of 33-iron-fol 00:00: daily [place] ic-[facility] 00 [facility] ([facility] + DHA) 29 mg iron-1 mg -250 mg combo pack 2021-02 Yes [id number] Take 1 [facility] vit 2-03 combo pack ity of 33-iron-fol 00:00: daily [place] ic-d[facility] 00 [facility] ([facility] + DHA) 29 mg iron-1 mg -250 mg combo pack 2021-02 Yes [id number] Take 1 [facility] 2-03 combo pack ity of 33-iron-fol 00:00: daily [place] ic-[facility] 00 [facility] ([facility] + DHA) 29 mg iron-1 mg -250 mg combo pack 2021-02 Yes [id number] Take 1 [facility] 2-03 combo pack ity of 33-iron-fol 00:00: daily [place] ic-d[facility] 00 [facility] ([facility] + DHA) 29 mg iron-1 mg -250 mg combo pack 2021-02 Yes [id number] Take 1 [facility] vit 2-03 combo pack ity of 33-iron-fol 00:00: daily [place] ic-[facility] 00 [facility] ([facility] + DHA) 29 mg iron-1 mg -250 mg combo pack 2021-02 Yes [id number] Take 1 [facility] 2-03 combo pack ity of 33-iron-fol 00:00: daily [place] ic-d[facility] 00 [facility] ([facility] + DHA) 29 mg iron-1 mg -250 mg combo pack proMETHazin 2021-02 Yes [id number] 25mg Take 1 [facility] 25 mg 2-03 tablet by ity of tablet 00:00: mouth [place] 00 every 6 Medical (six) Branch hours as needed for Nausea and Vomiting (N/V). 2021-02 Yes [id number] Take 1 [facility] vit 2-03 combo pack ity of 33-iron-fol 00:00: daily [place] ic-d[facility] 00 Medical ([facility] + DHA) 29 mg iron-1 mg -250 mg combo pack 2021-02 Yes [id number] Take 1 [facility] vit 2-03 combo pack ity of 33-iron-fol 00:00: daily [place] ic-[facility] 00 [facility] ([facility] + DHA) 29 mg iron-1 mg -250 mg combo pack 2021-02 Yes [id number] Take 1 [facility] vit 2-03 combo pack ity of 33-iron-fol 00:00: daily [place] ic-[facility] 00 [facility] ([facility] + DHA) 29 mg iron-1 mg -250 mg combo pack 2021-02 Yes [id number] Take 1 [facility] vit 2-03 combo pack ity of 33-iron-fol 00:00: daily [place] ic-[facility] 00 Medical ([facility] + DHA) 29 mg iron-1 mg -250 mg combo pack 2021-02 Yes [id number] Take 1 [facility] vit 2-03 combo pack ity of 33-iron-fol 00:00: daily [place] ic-[facility] 00 Medical ([facility] + DHA) 29 mg iron-1 mg -250 mg combo pack proMETHazin 2021-02 Yes [id number] 25mg Take 1 [facility] e 25 mg 2-03 tablet by ity of tablet 00:00: mouth [place] 00 every 6 Medical (six) Branch hours as needed for Nausea and Vomiting (N/V). 2021-02 Yes [id number] Take 1 [facility] vit 2-03 combo pack ity of 33-iron-fol 00:00: daily [place] ic-d[facility] 00 [facility] ([facility] + DHA) 29 mg iron-1 mg -250 mg combo pack 2021-02 Yes [id number] Take 1 [facility] vit 2-03 combo pack it[facility] of 33-iron-fol 00:00: daily [place] ic-[facility] 00 Medical ([facility] + DHA) 29 mg iron-1 mg -250 mg combo pack 2021-02 Yes [id number] Take 1 [facility] vit 2-03 combo pack ity of 33-iron-fol 00:00: daily [place] ic-[facility] 00 Medical ([facility] + D[facility]) 29 mg iron-1 mg -250 mg combo pack proMETHazin 2021-02 Yes [id number] 25mg Take 1 [facility] e 25 mg 2-03 tablet by ity of tablet 00:00: mouth [place] 00 every 6 Medical (six) Branch hours as needed for Nausea and Vomiting (N/V). 2021-02 Yes [id number] Take 1 [facility] vit 2-03 combo pack ity of 33-iron-fol 00:00: daily [place] ic-[facility] 00 [facility] ([facility] + DHA) 29 mg iron-1 mg -250 mg combo pack 2021-02 Yes [id number] Take 1 [facility] vit 2-03 combo pack ity of 33-iron-fol 00:00: daily [place] ic-[facility] 00 [facility] ([facility] + D[facility]) 29 mg iron-1 mg -250 mg combo pack 2021-02 Yes [id number] Take 1 [facility] vit 2-03 combo pack ity of 33-iron-fol 00:00: daily [place] ic[facility] 00 [facility] ([facility] + D[facility]) 29 mg iron-1 mg -250 mg combo pack proMETHazin 2021-02 Yes [id number] 25mg Take 1 [facility] e 25 mg 2-03 tablet by ity of tablet 00:00: mouth [place] 00 every 6 Medical (six) Branch hours as needed for Nausea and Vomiting (N/V). 2021-02 Yes [id number] Take 1 [facility] vit 2-03 combo pack ity of 33-iron-fol 00:00: daily [place] ic-[facility] 00 [facility] ([facility] + DHA) 29 mg iron-1 mg -250 mg combo pack 2021-02 Yes [id number] Take 1 [facility] vit 2-03 combo pack ity of 33-iron-fol 00:00: daily [place] ic-[facility] 00 Medical ([facility] + D[facility]) 29 mg iron-1 mg -250 mg combo pack 2021-02 Yes [id number] Take 1 [facility] vit 2-03 combo pack ity of 33-iron-fol 00:00: daily [place] ic[facility] 00 Medical ([facility] + DHA) 29 mg iron-1 mg -250 mg combo pack 2021-02 Yes [id number] Take 1 [facility] vit 2-03 combo pack ity of 33-iron-fol 00:00: daily [place] ic-[facility] 00 Medical ([facility] + DHA) 29 mg iron-1 mg -250 mg combo pack proMETHazin 2021-02 Yes [id number] 25mg Take 1 [facility] e 25 mg 2-03 tablet by ity of tablet 00:00: mouth [place] 00 every 6 Medical (six) Branch hours as needed for Nausea and Vomiting (N/V). 2021-02 Yes [id number] Take 1 [facility] vit 2-03 combo pack ity of 33-iron-fol 00:00: daily [place] ic[facility] 00 [facility] ([facility] + D[facility]) 29 mg iron-1 mg -250 mg combo pack 2021-02 Yes [id number] Take 1 [facility] vit 2-03 combo pack ity of 33-iron-fol 00:00: daily [place] ic[facility] 00 Medical ([facility] + D[facility]) 29 mg iron-1 mg -250 mg combo pack proMETHazin 2021-02 Yes [id number] 25mg Take 1 [facility] e 25 mg 2-03 tablet by ity of tablet 00:00: mouth [place] 00 every 6 Medical (six) Branch hours as needed for Nausea and Vomiting (N/V). 2021-02 Yes [id number] Take 1 [facility] vit 2-03 combo pack ity of 33-iron-fol 00:00: daily [place] ic-d[facility] 00 [facility] ([facility] + D[facility]) 29 mg iron-1 mg -250 mg combo pack 2021-02 Yes [id number] Take 1 [facility] vit 2-03 combo pack ity of 33-iron-fol 00:00: daily [place] ic[facility] 00 [facility] ([facility] + D[facility]) 29 mg iron-1 mg -250 mg combo pack 2021-02 Yes [id number] Take 1 [facility] vit 2-03 combo pack ity of 33-iron-fol 00:00: daily [place] ic-[facility] 00 [facility] ([facility] + D[facility]) 29 mg iron-1 mg -250 mg combo pack 2021-02 Yes [id number] Take 1 [facility] vit 2-03 combo pack ity of 33-iron-fol 00:00: daily [place] ic[facility] 00 [facility] ([facility] + D[facility]) 29 mg iron-1 mg -250 mg combo pack 2021-02 Yes [id number] Take 1 [facility] vit 2-03 combo pack ity of 33-iron-fol 00:00: daily [place] ic[facility] 00 [facility] ([facility] + D[facility]) 29 mg iron-1 mg -250 mg combo pack 2021-02 Yes [id number] Take 1 [facility] vit 2-03 combo pack ity of 33-iron-fol 00:00: daily [place] ic-[facility] 00 [facility] ([facility] + D[facility]) 29 mg iron-1 mg -250 mg combo pack proMETHazin 2021-02 Yes [id number] 25mg Take 1 [facility] e 25 mg 2-03 tablet by ity of tablet 00:00: mouth [place] 00 every 6 Medical (six) Branch hours as needed for Nausea and Vomiting (N/V). 2021-02 Yes [id number] Take 1 [facility] vit 2-03 combo pack ity of 33-iron-fol 00:00: daily [place] ic-d[facility] 00 [facility] ([facility] + D[facility]) 29 mg iron-1 mg -250 mg combo pack 2021-02 Yes [id number] Take 1 [facility] vit 2-03 combo pack ity of 33-iron-fol 00:00: daily [place] ic[facility] 00 [facility] ([facility] + D[facility]) 29 mg iron-1 mg -250 mg combo pack 2021-02 Yes [id number] Take 1 [facility] vit 2-03 combo pack ity of 33-iron-fol 00:00: daily [place] ic[facility] 00 [facility] ([facility] + D[facility]) 29 mg iron-1 mg -250 mg combo pack 2021-02 Yes [id number] Take 1 [facility] vit 2-03 combo pack ity of 33-iron-fol 00:00: daily [place] ic[facility] 00 [facility] ([facility] + D[facility]) 29 mg iron-1 mg -250 mg combo pack 2021-02 Yes [id number] Take 1 [facility] vit 2-03 combo pack ity of 33-iron-fol 00:00: daily [place] ic-[facility] 00 [facility] ([facility] + D[facility]) 29 mg iron-1 mg -250 mg combo pack proMETHazin 2021-02 Yes [id number] 25mg Take 1 [facility] e 25 mg 2-03 tablet by ity of tablet 00:00: mouth [place] 00 every 6 Medical (six) Branch hours as needed for Nausea and Vomiting (N/V). 2021-02 Yes [id number] Take 1 [facility] vit 2-03 combo pack ity of 33-iron-fol 00:00: daily [place] ic-d[facility] 00 [facility] ([facility] + DHA) 29 mg iron-1 mg -250 mg combo pack 2021-02 Yes [id number] Take 1 [facility] vit 2-03 combo pack ity of 33-iron-fol 00:00: daily [place] ic-[facility] 00 [facility] ([facility] + DHA) 29 mg iron-1 mg -250 mg combo pack 2021-02 Yes [id number] Take 1 [facility] vit 2-03 combo pack ity of 33-iron-fol 00:00: daily [place] ic-d[facility] 00 Medical ([facility] + DHA) 29 mg iron-1 mg -250 mg combo pack proMETHazin 2021-02 Yes [id number] 25mg Take 1 [facility] e 25 mg 2-03 tablet by ity of tablet 00:00: mouth [place] 00 every 6 Medical (six) Branch hours as needed for Nausea and Vomiting (N/V). 2021-02 Yes [id number] Take 1 [facility] vit 2-03 combo pack ity of 33-iron-fol 00:00: daily [place] ic-d[facility] 00 [facility] ([facility] + DHA) 29 mg iron-1 mg -250 mg combo pack 2021-02 Yes [id number] Take 1 [facility] vit 2-03 combo pack ity of 33-iron-fol 00:00: daily [place] ic-d[facility] 00 Medical ([facility] + DHA) 29 mg iron-1 mg -250 mg combo pack 2021-02 Yes [id number] Take 1 [facility] vit 2-03 combo pack ity of 33-iron-fol 00:00: daily [place] ic-d[facility] 00 Medical ([facility] + DHA) 29 mg iron-1 mg -250 mg combo pack proMETHazin 2021-02 Yes [id number] 25mg Take 1 [facility] e 25 mg 2-03 tablet by ity of tablet 00:00: mouth [place] 00 every 6 Medical (six) Branch hours as needed for Nausea and Vomiting (N/V). 2021-02 Yes [id number] Take 1 [facility] vit 2-03 combo pack ity of 33-iron-fol 00:00: daily [place] ic-d[facility] 00 Medical ([facility] + DHA) 29 mg iron-1 mg -250 mg combo pack proMETHazin 2021-02 Yes [id number] 25mg Take 1 [facility] e 25 mg 2-03 tablet by ity of tablet 00:00: mouth [place] 00 every 6 Medical (six) Branch hours as needed for Nausea and Vomiting (N/V). 2021-02 Yes [id number] Take 1 [facility] vit 2-03 combo pack ity of 33-iron-fol 00:00: daily [place] ic-d[facility] 00 Medical ([facility] + DHA) 29 mg iron-1 mg -250 mg combo pack proMETHazin 2021-02 Yes [id number] 25mg Take 1 [facility] 25 mg 2-03 tablet by ity of tablet 00:00: mouth [place] 00 every 6 Medical (six) Branch hours as needed for Nausea and Vomiting (N/V). 2021-02 Yes [id number] Take 1 [facility] vit 2-03 combo pack ity of 33-iron-fol 00:00: daily [place] ic-d[facility] 00 Medical ([facility] + DHA) 29 mg iron-1 mg -250 mg combo pack proMETHazin 2021-02 Yes [id number] 25mg Take 1 [facility] 25 mg 2-03 tablet by ity of tablet 00:00: mouth [place] 00 every 6 Medical (six) Branch hours as needed for Nausea and Vomiting (N/V). 2021-02 Yes [id number] Take 1 [facility] vit 2-03 combo pack ity of 33-iron-fol 00:00: daily [place] ic-d[facility] 00 Medical ([facility] + DHA) 29 mg iron-1 mg -250 mg combo pack proMETHazin 2021-02 Yes [id number] 25mg Take 1 [facility] 25 mg 2-03 tablet by ity of tablet 00:00: mouth [place] 00 every 6 Medical (six) Branch hours as needed for Nausea and Vomiting (N/V). 2021-02 Yes [id number] Take 1 [facility] vit 2-03 combo pack ity of 33-iron-fol 00:00: daily [place] ic-d[facility] 00 Medical ([facility] + DHA) 29 mg iron-1 mg -250 mg combo pack proMETHazin 2021-02 Yes [id number] 25mg Take 1 [facility] 25 mg 2-03 tablet by ity of tablet 00:00: mouth [place] 00 every 6 Medical (six) Branch hours as needed for Nausea and Vomiting (N/V). 2021-02 Yes [id number] Take 1 [facility] vit 2-03 combo pack ity of 33-iron-fol 00:00: daily [place] ic-dha 00 Medical ([facility] + DHA) 29 mg iron-1 mg -250 mg combo pack proMETHazin 2021-02 Yes [id number] 25mg Take 1 [facility] 25 mg 2-03 tablet by ity of tablet 00:00: mouth [place] 00 every 6 Medical (six) Branch hours as needed for Nausea and Vomiting (N/V). 2021-02 Yes [id number] Take 1 [facility] vit 2-03 combo pack ity of 33-iron-fol 00:00: daily [place] ic-dha 00 Medical ([facility] + DHA) 29 mg iron-1 mg -250 mg combo pack proMETHazin 2021-02 Yes [id number] 25mg Take 1 [facility] 25 mg 2-03 tablet by ity of tablet 00:00: mouth [place] 00 every 6 Medical (six) Branch hours as needed for Nausea and Vomiting (N/V). 2021-02 Yes [id number] Take 1 [facility] vit 2-03 combo pack ity of 33-iron-fol 00:00: daily [place] ic-dha 00 Medical ([facility] + DHA) 29 mg iron-1 mg -250 mg combo pack proMETHazin 2021-02 Yes [id number] 25mg Take 1 [facility] 25 mg 2-03 tablet by ity of tablet 00:00: mouth [place] 00 every 6 Medical (six) Branch hours as needed for Nausea and Vomiting (N/V). 2021-02 Yes [id number] Take 1 [facility] vit 2-03 combo pack ity of 33-iron-fol 00:00: daily [place] ic-dha 00 Medical ([facility] + DHA) 29 mg iron-1 mg -250 mg combo pack proMETHazin 2021-02 Yes [id number] 25mg Take 1 [facility] 25 mg 2-03 tablet by ity of tablet 00:00: mouth [place] 00 every 6 Medical (six) Branch hours as needed for Nausea and Vomiting (N/V). 2021-02 Yes [id number] Take 1 [facility] vit 2-03 combo pack ity of 33-iron-fol 00:00: daily [place] ic-dha 00 Medical ([facility] + DHA) 29 mg iron-1 mg -250 mg combo pack proMETHazin 2021-02 Yes [id number] 25mg Take 1 [facility] 25 mg 2-03 tablet by ity of tablet 00:00: mouth [place] 00 every 6 Medical (six) Branch hours as needed for Nausea and Vomiting (N/V). 2021-02 Yes [id number] Take 1 [facility] vit 2-03 combo pack ity of 33-iron-fol 00:00: daily [place] ic-dha 00 Medical ([facility] + DHA) 29 mg iron-1 mg -250 mg combo pack proMETHazin 2021-02 Yes [id number] 25mg Take 1 [facility] 25 mg 2-03 tablet by ity of tablet 00:00: mouth [place] 00 every 6 Medical (six) Branch hours as needed for Nausea and Vomiting (N/V). 2021-02 Yes [id number] Take 1 [facility] vit 2-03 combo pack ity of 33-iron-fol 00:00: daily [place] ic-dha 00 Medical ([facility] + DHA) 29 mg iron-1 mg -250 mg combo pack proMETHazin 2021-02 Yes [id number] 25mg Take 1 [facility] 25 mg 2-03 tablet by ity of tablet 00:00: mouth [place] 00 every 6 Medical (six) Branch hours as needed for Nausea and Vomiting (N/V). 2021-02 Yes [id number] Take 1 [facility] vit 2-03 combo pack ity of 33-iron-fol 00:00: daily [place] ic-dha 00 Medical ([facility] + DHA) 29 mg iron-1 mg -250 mg combo pack proMETHazin 2021-02 Yes [id number] 25mg Take 1 [facility] 25 mg 2-03 tablet by ity of tablet 00:00: mouth [place] 00 every 6 Medical (six) Branch hours as needed for Nausea and Vomiting (N/V). 2021-02 Yes [id number] Take 1 [facility] vit 2-03 combo pack ity of 33-iron-fol 00:00: daily [place] ic-dha 00 Medical ([facility] + DHA) 29 mg iron-1 mg -250 mg combo pack proMETHazin 2021-02 Yes [id number] 25mg Take 1 [facility] 25 mg 2-03 tablet by ity of tablet 00:00: mouth [place] 00 every 6 Medical (six) Branch hours as needed for Nausea and Vomiting (N/V). 2021-02 Yes [id number] Take 1 [facility] vit 2-03 combo pack ity of 33-iron-fol 00:00: daily [place] ic-dha 00 Medical ([facility] + DHA) 29 mg iron-1 mg -250 mg combo pack proMETHazin 2021-02 Yes [id number] 25mg Take 1 [facility] 25 mg 2-03 tablet by ity of tablet 00:00: mouth [place] 00 every 6 Medical (six) Branch hours as needed for Nausea and Vomiting (N/V). 2021-02 Yes [id number] Take 1 [facility] vit 2-03 combo pack ity of 33-iron-fol 00:00: daily [place] ic-dha 00 Medical ([facility] + DHA) 29 mg iron-1 mg -250 mg combo pack proMETHazin 2021-02 Yes [id number] 25mg Take 1 [facility] 25 mg 2-03 tablet by ity of tablet 00:00: mouth [place] 00 every 6 Medical (six) Branch hours as needed for Nausea and Vomiting (N/V). 2021-02 Yes [id number] Take 1 [facility] vit 2-03 combo pack ity of 33-iron-fol 00:00: daily [place] ic-dha 00 Medical ([facility] + DHA) 29 mg iron-1 mg -250 mg combo pack proMETHazin 2021-02 Yes [id number] 25mg Take 1 [facility] 25 mg 2-03 tablet by ity of tablet 00:00: mouth [place] 00 every 6 Medical (six) Branch hours as needed for Nausea and Vomiting (N/V). 2021-02 Yes [id number] Take 1 [facility] vit 2-03 combo pack ity of 33-iron-fol 00:00: daily [place] ic-dha 00 Medical ([facility] + DHA) 29 mg iron-1 mg -250 mg combo pack proMETHazin 2021-02 Yes [id number] 25mg Take 1 [facility] 25 mg 2-03 tablet by ity of tablet 00:00: mouth [place] 00 every 6 Medical (six) Branch hours as needed for Nausea and Vomiting (N/V). 2021-02 Yes [id number] Take 1 [facility] vit 2-03 combo pack ity of 33-iron-fol 00:00: daily [place] ic-dha 00 Medical ([facility] + DHA) 29 mg iron-1 mg -250 mg combo pack proMETHazin 2021-02 Yes [id number] 25mg Take 1 [facility] 25 mg 2-03 tablet by ity of tablet 00:00: mouth [place] 00 every 6 Medical (six) Branch hours as needed for Nausea and Vomiting (N/V). 2021-02 Yes [id number] Take 1 [facility] vit 2-03 combo pack ity of 33-iron-fol 00:00: daily [place] ic-dha 00 Medical ([facility] + DHA) 29 mg iron-1 mg -250 mg combo pack proMETHazin 2021-02 Yes [id number] 25mg Take 1 [facility] 25 mg 2-03 tablet by ity of tablet 00:00: mouth [place] 00 every 6 Medical (six) Branch hours as needed for Nausea and Vomiting (N/V). 2021-02 Yes [id number] Take 1 [facility] vit 2-03 combo pack ity of 33-iron-fol 00:00: daily [place] ic-dha 00 Medical ([facility] + DHA) 29 mg iron-1 mg -250 mg combo pack proMETHazin 2021-02 Yes [id number] 25mg Take 1 [facility] 25 mg 2-03 tablet by ity of tablet 00:00: mouth [place] 00 every 6 Medical (six) Branch hours as needed for Nausea and Vomiting (N/V). 2021-02 Yes [id number] Take 1 [facility] vit 2-03 combo pack ity of 33-iron-fol 00:00: daily [place] ic-dha 00 Medical ([facility] + DHA) 29 mg iron-1 mg -250 mg combo pack proMETHazin 2021-02 Yes [id number] 25mg Take 1 [facility] 25 mg 2-03 tablet by ity of tablet 00:00: mouth [place] 00 every 6 Medical (six) Branch hours as needed for Nausea and Vomiting (N/V). 2021-02 Yes [id number] Take 1 [facility] vers vit 2-03 combo pack ity of 33-iron-fol 00:00: daily [place] ic-dha 00 Medical ([facility] + DHA) 29 mg iron-1 mg -250 mg combo pack proMETHazin 2021-02 Yes [id number] 25mg Take 1 [facility] e 25 mg 2-03 tablet by ity of tablet 00:00: mouth [place] 00 every 6 Medical (six) Branch hours as needed for Nausea and Vomiting (N/V). 2021-02 Yes [id number] Take 1 [facility] vers vit 2-03 combo pack ity of 33-iron-fol 00:00: daily [place] ic-dha 00 Medical ([facility] + DHA) 29 mg iron-1 mg -250 mg combo pack proMETHazin 2021-02 Yes [id number] 25mg Take 1 [facility] e 25 mg 2-03 tablet by ity of tablet 00:00: mouth [place] 00 every 6 Medical (six) Branch hours as needed for Nausea and Vomiting (N/V). 2021-02 Yes [id number] Take 1 [facility] vers vit 2-03 combo pack ity of 33-iron-fol 00:00: daily [place] ic-dha 00 Medical ([facility] + DHA) 29 mg iron-1 mg -250 mg combo pack proMETHazin 2021-02 Yes [id number] 25mg Take 1 [facility] 25 mg 2-03 tablet by ity of tablet 00:00: mouth [place] 00 every 6 Medical (six) Branch hours as needed for Nausea and Vomiting (N/V). 2021-02 Yes [id number] Take 1 [facility] vers vit 2-03 combo pack ity of 33-iron-fol 00:00: daily [place] ic-dha 00 Medical ([facility] + DHA) 29 mg iron-1 mg -250 mg combo pack proMETHazin 2021-02 Yes [id number] 25mg Take 1 [facility] 25 mg 2-03 tablet by ity of tablet 00:00: mouth [place] 00 every 6 Medical (six) Branch hours as needed for Nausea and Vomiting (N/V). 2021-02 Yes [id number] Take 1 [facility] vers vit 2-03 combo pack ity of 33-iron-fol 00:00: daily [place] ic-dha 00 Medical ([facility] + DHA) 29 mg iron-1 mg -250 mg combo pack proMETHazin 2021-02 Yes [id number] 25mg Take 1 [facility] e 25 mg 2-03 tablet by ity of tablet 00:00: mouth [place] 00 every 6 Medical (six) Branch hours as needed for Nausea and Vomiting (N/V). 2021-02 Yes [id number] Take 1 [facility] vers vit 2-03 combo pack ity of 33-iron-fol 00:00: daily [place] ic-dha 00 Medical ([facility] + DHA) 29 mg iron-1 mg -250 mg combo pack 2021-02 Yes [id number] Take 1 [facility] vers vit 2-03 combo pack ity of 33-iron-fol 00:00: daily [place] ic-dha 00 Medical ([facility] + DHA) 29 mg iron-1 mg -250 mg combo pack 2021-02 Yes [id number] Take 1 [facility] vers vit 2-03 combo pack ity of 33-iron-fol 00:00: daily [place] ic-dha 00 Medical ([facility] + DHA) 29 mg iron-1 mg -250 mg combo pack 2021-02 Yes [id number] Take 1 [facility] vers vit 2-03 combo pack ity of 33-iron-fol 00:00: daily [place] ic-dha 00 Medical ([facility] + DHA) 29 mg iron-1 mg -250 mg combo pack 2021-02 Yes [id number] Take 1 [facility] vers vit 2-03 combo pack ity of 33-iron-fol 00:00: daily [place] ic-dha 00 Medical ([facility] + DHA) 29 mg iron-1 mg -250 mg combo pack 2021-023- No [id number] Take 1 [facility] vit 2-03 07-15 combo pack ity of 33-iron-fol 00:00: 00:00 [place] [facility] 00 :00 [facility] ([facility] + DHA) 29 mg iron-1 mg -250 mg combo pack 2021-02- No [id number] Take 1 [facility] vit 03-20 combo pack ity of 33-iron-fol 00:00: 00:00 daily [place] [facility] 00 :00 Medical ([facility] + DHA) 29 mg iron-1 mg -250 mg combo pack proMETHazin 2021-02- No [id number] 25mg Take 1 [facility] e 25 mg 03-20-24 tablet by ity of tablet 00:00: 00:00 mouth [place] 00 :00 every 6 Medical (six) Branch hours as needed for Nausea and Vomiting (N/V). proMETHazin 2021-02- No [id number] 25mg Take 1 [facility] e 25 mg 03-20-24 tablet by ity of tablet 00:00: 00:00 mouth [place] 00 :00 every 6 Medical (six) Branch hours as needed for Nausea and Vomiting (N/V). No known 2020-02 No [facility] medications 2-16 ity of 14:27: [address] No known 2020-02 No [facility] medications 2-16 ity of 14:27: [address] No known 2020-02 No No known Unive rs medications 2-16 medication it y of 14:27: s [address] No known 2020-02 No [facility] medications 2-16 ity of 14:27: [address] phenazopyri 2018-0 Yes 200mg Take 1 [facility] vers dine 200 mg 6-28 tablet by ity of tablet 00:00: mouth 3 00 (three) Medical times Branch daily. Nitrofurant 2018-0 Yes 100mg Take 1 [facility] vers oin&Nit. 6-28 capsule by ity o f [place] 00:[place]: mouth [place] (MACROBID[place] 00 (two) Medical 100 mg times Branch capsule daily. naproxen 2017-0 Yes 550mg Take 1 Univer s sodium 550 6-28 tablet by ity of mg tablet 00:00: mouth 2 [place] 00 (two) Medical times Branch daily with meals. phenazopyri 2019- No 200mg Take 1 Un elizabeth dine 200 mg 08-12 tablet by it y of tablet 00:00: 00:00 mouth 3 [place] 00 :00 (three) Medical times Branch daily. Nitrofurant 2019- No 100mg Take 1 Un elizabeth oin&Nit. 08-12 capsule by ity of [place] 00:00: 00:00 mouth 2 [place] (MACROBID) 00 :00 (two) Medical 100 mg times Branch capsule daily. naproxen 2019- No 550mg Take 1 Unive rs sodium 550 08-12 tablet by ity of mg tablet 00:00: 00:00 mouth 2 [place] 00 :00 (two) Medical times Branch daily with meals. promethazin Yes 5mL Take 5 mL U nivers e-codeine 11 by mouth 4 ity of 6.25-10 00:00: (four) [place] mg/5 mL 00 times Medical syrup daily as Branch needed for Cough. traMADOL Yes 50mg Take 1 Univers (ULTRAM) 50 -11 tablet by ity of mg tablet 00:00: [...] No known No [facility] medications ity of [facility] Immunizations Ordered Immunization Filled Date Status Comments Sour ce Name Immunization Name Varicella 2022-08-29 Completed [facility] (varivax)(chicken 00:00:00 [facility] edical pox) Branch Varicella 2022-08-29 Completed [facility] (varivax)(chicken 00:00:00 [facility] edical pox) Branch Varicella 2022-08-29 Completed [facility] of (varivax)(chicken 00:00:00 [facility] edical pox) Branch Influenza Virus 2022-03-19 Completed [...] Completed Unive rsity of PFIZER VACCINE 00:00:00 [facility] Branch SARS-COV-2 COVID-19 2020-11-13 Completed Unive rsity of PFIZER VACCINE 00:00:00 [facility] Branch SARS-COV-2 COVID-19 2020-11-13 Completed Unive rsity of PFIZER VACCINE 00:00:00 [facility] SARS-COV-2 COVID-19 2020-11-13 Completed Unive rsity of PFIZER VACCINE 00:00:00 [facility] SARS-COV-2 COVID-19 2020-11-13 Completed Unive rsity of PFIZER VACCINE 00:00:00 [facility] SARS-COV-2 COVID-19 2020-11-13 Completed Unive rsity of PFIZER VACCINE 00:00:00 [facility] SARS-COV-2 COVID-19 2020-11-13 Completed Unive rsity of PFIZER VACCINE 00:00:00 [facility] SARS-COV-2 COVID-19 2020-11-13 Completed Unive rsity of PFIZER VACCINE 00:00:00 [facility] Branch SARS-COV-2 COVID-19 2020-11-13 Completed Unive rsity of PFIZER VACCINE 00:00:00 [facility] Branch SARS-COV-2 COVID-19 2020-11-13 Completed Unive rsity of PFIZER VACCINE 00:00:00 [facility] SARS-COV-2 COVID-19 2020-11-13 Completed Unive rsity of PFIZER VACCINE 00:00:00 [facility] SARS-COV-2 COVID-19 2020-11-13 Completed Unive rsity of PFIZER VACCINE 00:00:00 [facility] SARS-COV-2 COVID-19 2020-11-13 Completed Unive rsity of PFIZER VACCINE 00:00:00 [facility] [facility] SARS-COV-2 COVID-19 2020-11-13 Completed [facility]ZER VACCINE 00:00:00 [facility] SARS-COV-2 COVID-19 2020-11-13 Completed [facility] PFIZER VACCINE 00:00:00 [facility] SARS-COV-2 COVID-19 2020-11-13 Completed [facility] PFIZER VACCINE 00:00:00 [facility] SARS-COV-2 COVID-19 2020-11-13 Completed [facility] PFIZER VACCINE 00:00:00 [facility] SARS-COV-2 COVID-19 2020-11-13 Completed [facility] PFIZER VACCINE 00:00:00 [facility] SARS-COV-2 COVID-19 2020-11-13 Completed [facility] PFIZER VACCINE 00:00:00 [facility] SARS-COV-2 COVID-19 2020-11-13 Completed [facility] PFIZER VACCINE 00:00:00 [facility] SARS-COV-2 COVID-19 2020-11-13 Completed [facility] PFIZER VACCINE 00:00:00 [facility] SARS-COV-2 COVID-19 2020-11-13 Completed [facility] PFIZER VACCINE 00:00:00 [facility] SARS-COV-2 COVID-19 2020-11-13 Completed [facility] PFIZER VACCINE 00:00:00 [facility] SARS-COV-2 COVID-19 2020-11-13 Completed [facility] PFIZER VACCINE 00:00:00 [facility] SARS-COV-2 COVID-19 2020-11-13 Completed [facility] PFIZER VACCINE 00:00:00 [facility] SARS-COV-2 COVID-19 2020-11-13 Completed [facility] PFIZER VACCINE 00:00:00 [facility] SARS-COV-2 COVID-19 2020-11-13 Completed [facility] PFIZER VACCINE 00:00:00 [facility] SARS-COV-2 COVID-19 2020-11-13 Completed [facility] PFIZER VACCINE 00:00:00 [facility] SARS-COV-2 COVID-19 2020-11-13 Completed [facility] PFIZER VACCINE 00:00:00 [facility] SARS-COV-2 COVID-19 2020-11-13 Completed [facility] PFIZER VACCINE 00:00:00 [facility] SARS-COV-2 COVID-19 2020-11-13 Completed [facility] PFIZER VACCINE 00:00:00 [facility] SARS-COV-2 COVID-19 2020-11-13 Completed [facility] PFIZER VACCINE 00:00:00 [facility] SARS-COV-2 COVID-19 2020-11-13 Completed [facility] PFIZER VACCINE 00:00:00 [facility] SARS-COV-2 COVID-19 2020-11-13 Completed [facility] PFIZER VACCINE 00:00:00 [facility] SARS-COV-2 COVID-19 2020-11-13 Completed [facility] PFIZER VACCINE 00:00:00 [facility] SARS-COV-2 COVID-19 2020-11-13 Completed [facility] PFIZER VACCINE 00:00:00 [facility] SARS-COV-2 COVID-19 2020-11-13 Completed [facility] PFIZER VACCINE 00:00:00 [facility] SARS-COV-2 COVID-19 2020-11-13 Completed [facility] PFIZER VACCINE 00:00:00 [facility] SARS-COV-2 COVID-19 2020-11-13 Completed [facility] PFIZER VACCINE 00:00:00 [facility] SARS-COV-2 COVID-19 2020-11-13 Completed [facility] PFIZER VACCINE 00:00:00 [facility] SARS-COV-2 COVID-19 2020-11-13 Completed [facility] PFIZER VACCINE 00:00:00 [facility] SARS-COV-2 COVID-19 2020-11-13 Completed [facility] PFIZER VACCINE 00:00:00 [facility] SARS-COV-2 COVID-19 2020-11-13 Completed [facility] PFIZER VACCINE 00:00:00 [facility] SARS-COV-2 COVID-19 2020-11-13 Completed [facility] PFIZER VACCINE 00:00:00 [facility] SARS-COV-2 COVID-19 2020-11-13 Completed [facility] PFIZER VACCINE 00:00:00 [facility] SARS-COV-2 COVID-19 2020-11-13 Completed [facility] PFIZER VACCINE 00:00:00 [facility] SARS-COV-2 COVID-19 2020-11-13 Completed [facility] PFIZER VACCINE 00:00:00 [facility] SARS-COV-2 COVID-19 2020-11-13 Completed [facility] PFIZER VACCINE 00:00:00 [facility] SARS-COV-2 COVID-19 2020-11-13 Completed [facility] PFIZER VACCINE 00:00:00 [facility] SARS-COV-2 COVID-19 2020-11-13 Completed [facility] PFIZER VACCINE 00:00:00 [facility] SARS-COV-2 COVID-19 2020-11-13 Completed [facility] PFIZER VACCINE 00:00:00 [facility] SARS-COV-2 COVID-19 2020-11-13 Completed [facility] PFIZER VACCINE 00:00:00 [facility] SARS-COV-2 COVID-19 2020-11-13 Completed [facility] PFIZER VACCINE 00:00:00 [facility] SARS-COV-2 COVID-19 2020-11-13 Completed [facility] PFIZER VACCINE 00:00:00 [facility] SARS-COV-2 COVID-19 2020-11-13 Completed [facility] PFIZER VACCINE 00:00:00 [facility] SARS-COV-2 COVID-19 2020-11-13 Completed [facility] PFIZER VACCINE 00:00:00 [facility] SARS-COV-2 COVID-19 2020-11-13 Completed [facility] PFIZER VACCINE 00:00:00 [facility] SARS-COV-2 COVID-19 2020-11-13 Completed [facility] PFIZER VACCINE 00:00:00 [facility] SARS-COV-2 COVID-19 2020-11-13 Completed [facility] PFIZER VACCINE 00:00:00 [facility] SARS-COV-2 COVID-19 2020-11-13 Completed [facility] PFIZER VACCINE 00:00:00 [facility] SARS-COV-2 COVID-19 2020-11-13 Completed [facility] PFIZER VACCINE 00:00:00 [facility] SARS-COV-2 COVID-19 2020-11-13 Completed [facility] PFIZER VACCINE 00:00:00 [facility] SARS-COV-2 COVID-19 2020-11-13 Completed [facility] PFIZER VACCINE 00:00:00 [facility] SARS-COV-2 COVID-19 2020-11-13 Completed [facility] PFIZER VACCINE 00:00:00 [facility] SARS-COV-2 COVID-19 2020-11-13 Completed [facility] PFIZER VACCINE 00:00:00 [facility] SARS-COV-2 COVID-19 2020-11-13 Completed [facility] PFIZER VACCINE 00:00:00 [facility] SARS-COV-2 COVID-19 2020-11-13 Completed [facility] PFIZER VACCINE 00:00:00 [facility] SARS-COV-2 COVID-19 2020-11-13 Completed [facility] PFIZER VACCINE 00:00:00 [facility] SARS-COV-2 COVID-19 2020-11-13 Completed [facility] PFIZER VACCINE 00:00:00 [facility] SARS-COV-2 COVID-19 2020-11-13 Completed [facility] PFIZER VACCINE 00:00:00 [facility] SARS-COV-2 COVID-19 2020-10-23 Completed [facility] PFIZER VACCINE 00:00:00 [facility] SARS-COV-2 COVID-19 2020-10-23 Completed [facility] PFIZER VACCINE 00:00:00 [facility] SARS-COV-2 COVID-19 2020-10-23 Completed [facility] PFIZER VACCINE 00:00:00 [facility] SARS-COV-2 COVID-19 2020-10-23 Completed [facility] PFIZER VACCINE 00:00:00 [facility] SARS-COV-2 COVID-19 2020-10-23 Completed [facility] PFIZER VACCINE 00:00:00 [facility] SARS-COV-2 COVID-19 2020-10-23 Completed [facility] PFIZER VACCINE 00:00:00 [facility] SARS-COV-2 COVID-19 2020-10-23 Completed [facility] PFIZER VACCINE 00:00:00 [facility] SARS-COV-2 COVID-19 2020-10-23 Completed [facility] PFIZER VACCINE 00:00:00 [facility] SARS-COV-2 COVID-19 2020-10-23 Completed [facility] PFIZER VACCINE 00:00:00 [facility] SARS-COV-2 COVID-19 2020-10-23 Completed [facility] PFIZER VACCINE 00:00:00 [facility] SARS-COV-2 COVID-19 2020-10-23 Completed [facility] PFIZER VACCINE 00:00:00 [facility] SARS-COV-2 COVID-19 2020-10-23 Completed [facility] PFIZER VACCINE 00:00:00 [facility] SARS-COV-2 COVID-19 2020-10-23 Completed [facility] PFIZER VACCINE 00:00:00 [facility] SARS-COV-2 COVID-19 2020-10-23 Completed [facility] PFIZER VACCINE 00:00:00 [facility] SARS-COV-2 COVID-19 2020-10-23 Completed [facility] PFIZER VACCINE 00:00:00 [facility] SARS-COV-2 COVID-19 2020-10-23 Completed [facility] PFIZER VACCINE 00:00:00 [facility] SARS-COV-2 COVID-19 2020-10-23 Completed [facility] PFIZER VACCINE 00:00:00 [facility] SARS-COV-2 COVID-19 2020-10-23 Completed [facility] PFIZER VACCINE 00:00:00 [facility] SARS-COV-2 COVID-19 2020-10-23 Completed [facility] PFIZER VACCINE 00:00:00 [facility] SARS-COV-2 COVID-19 2020-10-23 Completed [facility] PFIZER VACCINE 00:00:00 [facility] SARS-COV-2 COVID-19 2020-10-23 Completed [facility]FIZER VACCINE 00:00:00 [facility] SARS-COV-2 COVID-19 2020-10-23 Completed [facility] PFIZER VACCINE 00:00:00 [facility] SARS-COV-2 COVID-19 2020-10-23 Completed [facility] PFIZER VACCINE 00:00:00 [facility] SARS-COV-2 COVID-19 2020-10-23 Completed [facility] PFIZER VACCINE 00:00:00 [facility] SARS-COV-2 COVID-19 2020-10-23 Completed [facility] PFIZER VACCINE 00:00:00 [facility] SARS-COV-2 COVID-19 2020-10-23 Completed [facility] PFIZER VACCINE 00:00:00 [facility] SARS-COV-2 COVID-19 2020-10-23 Completed [facility] PFIZER VACCINE 00:00:00 [facility] SARS-COV-2 COVID-19 2020-10-23 Completed [facility] PFIZER VACCINE 00:00:00 [facility] SARS-COV-2 COVID-19 2020-10-23 Completed [facility] PFIZER VACCINE 00:00:00 [facility] SARS-COV-2 COVID-19 2020-10-23 Completed [facility] PFIZER VACCINE 00:00:00 [facility] SARS-COV-2 COVID-19 2020-10-23 Completed [facility] PFIZER VACCINE 00:00:00 [facility] SARS-COV-2 COVID-19 2020-10-23 Completed [facility] PFIZER VACCINE 00:00:00 [facility] SARS-COV-2 COVID-19 2020-10-23 Completed [facility] PFIZER VACCINE 00:00:00 [facility] SARS-COV-2 COVID-19 2020-10-23 Completed [facility] PFIZER VACCINE 00:00:00 [facility] SARS-COV-2 COVID-19 2020-10-23 Completed [facility] PFIZER VACCINE 00:00:00 [facility] SARS-COV-2 COVID-19 2020-10-23 Completed [facility] PFIZER VACCINE 00:00:00 [facility] SARS-COV-2 COVID-19 2020-10-23 Completed [facility] PFIZER VACCINE 00:00:00 [facility] SARS-COV-2 COVID-19 2020-10-23 Completed [facility] PFIZER VACCINE 00:00:00 [facility] SARS-COV-2 COVID-19 2020-10-23 Completed [facility] PFIZER VACCINE 00:00:00 [facility] SARS-COV-2 COVID-19 2020-10-23 Completed [facility] PFIZER VACCINE 00:00:00 [facility] SARS-COV-2 COVID-19 2020-10-23 Completed [facility] PFIZER VACCINE 00:00:00 [facility] SARS-COV-2 COVID-19 2020-10-23 Completed [facility] PFIZER VACCINE 00:00:00 [facility] SARS-COV-2 COVID-19 2020-10-23 Completed [facility] PFIZER VACCINE 00:00:00 [facility] SARS-COV-2 COVID-19 2020-10-23 Completed [facility] PFIZER VACCINE 00:00:00 [facility] SARS-COV-2 COVID-19 2020-10-23 Completed [facility] PFIZER VACCINE 00:00:00 [facility] SARS-COV-2 COVID-19 2020-10-23 Completed [facility] PFIZER VACCINE 00:00:00 [facility] SARS-COV-2 COVID-19 2020-10-23 Completed [facility] PFIZER VACCINE 00:00:00 [facility] SARS-COV-2 COVID-19 2020-10-23 Completed [facility] PFIZER VACCINE 00:00:00 [facility] SARS-COV-2 COVID-19 2020-10-23 Completed [facility] PFIZER VACCINE 00:00:00 [facility] SARS-COV-2 COVID-19 2020-10-23 Completed [facility] PFIZER VACCINE 00:00:00 [facility] SARS-COV-2 COVID-19 2020-10-23 Completed [facility] PFIZER VACCINE 00:00:00 [facility] SARS-COV-2 COVID-19 2020-10-23 Completed [facility] PFIZER VACCINE 00:00:00 [facility] SARS-COV-2 COVID-19 2020-10-23 Completed [facility] PFIZER VACCINE 00:00:00 [facility] SARS-COV-2 COVID-19 2020-10-23 Completed [facility] PFIZER VACCINE 00:00:00 [facility] SARS-COV-2 COVID-19 2020-10-23 Completed [facility] PFIZER VACCINE 00:00:00 [facility] SARS-COV-2 COVID-19 2020-10-23 Completed [facility] PFIZER VACCINE 00:00:00 [facility] SARS-COV-2 COVID-19 2020-10-23 Completed [facility] PFIZER VACCINE 00:00:00 [facility] SARS-COV-2 COVID-19 2020-10-23 Completed [facility] PFIZER VACCINE 00:00:00 [facility] SARS-COV-2 COVID-19 2020-10-23 Completed [facility] PFIZER VACCINE 00:00:00 [facility] SARS-COV-2 COVID-19 2020-10-23 Completed [facility] PFIZER VACCINE 00:00:00 [facility] SARS-COV-2 COVID-19 2020-10-23 Completed [facility] PFIZER VACCINE 00:00:00 [facility] SARS-COV-2 COVID-19 2020-10-23 Completed [facility] PFIZER VACCINE 00:00:00 [facility] SARS-COV-2 COVID-19 2020-10-23 Completed [facility] PFIZER VACCINE 00:00:00 [facility] SARS-COV-2 COVID-19 2020-10-23 Completed [facility] PFIZER VACCINE 00:00:00 [facility] SARS-COV-2 COVID-19 2020-10-23 Completed [facility] PFIZER VACCINE 00:00:00 [facility] SARS-COV-2 COVID-19 2020-10-23 Completed [facility] PFIZER VACCINE 00:00:00 [facility] SARS-COV-2 COVID-19 2020-10-23 Completed [facility] PFIZER VACCINE 00:00:00 [facility] SARS-COV-2 COVID-19 2020-10-23 Completed [facility] PFIZER VACCINE 00:00:00 [facility] SARS-COV-2 COVID-19 2020-10-23 Completed [facility] PFIZER VACCINE 00:00:00 [facility] SARS-COV-2 COVID-19 2020-10-23 Completed [facility] PFIZER VACCINE 00:00:00 [facility] Influenza Virus 2016-11-18 Completed [facility] 00:00:00 [facility] Influenza Virus 2016-11-18 Completed [facility]+ 00:00:00 [facility] Influenza Virus 2016-11-18 Completed [facility]+ 00:00:00 [facility] Influenza Virus 2016-11-18 Completed [facility] 3+ 00:00:00 [facility] Influenza Virus 2016-11-18 Completed [facility] 3+ 00:00:00 [facility] Influenza Virus 2016-11-18 Completed [facility] 3+ 00:00:00 [facility] Influenza Virus 2016-11-18 Completed [facility] 3+ 00:00:00 [facility] Influenza Virus 2016-11-18 Completed [facility] 3+ 00:00:00 [facility] Influenza Virus 2016-11-18 Completed [facility] 3+ 00:00:00 [facility] Influenza Virus 2016-11-18 Completed [facility] 3+ 00:00:00 [facility] Influenza Virus 2016-11-18 Completed [facility] 3+ 00:00:00 [facility] Influenza Virus 2016-11-18 Completed [facility] 3+ 00:00:00 [facility] Influenza Virus 2016-11-18 Completed [facility] 3+ 00:00:00 [facility] Influenza Virus 2016-11-18 Completed [facility] 3+ 00:00:00 [facility] Influenza Virus 2016-11-18 Completed [facility] 3+ 00:00:00 [facility] Influenza Virus 2016-11-18 Completed [facility] 3+ 00:00:00 [facility] Influenza Virus 2016-11-18 Completed [facility] 3+ 00:00:00 [facility] Influenza Virus 2016-11-18 Completed [facility] 3+ 00:00:00 [facility] Influenza Virus 2016-11-18 Completed [facility] 3+ 00:00:00 [facility] Influenza Virus 2016-11-18 Completed [facility] 3+ 00:00:00 [facility] Influenza Virus 2016-11-18 Completed [facility] 3+ 00:00:00 [facility] Influenza Virus 2016-11-18 Completed [facility] 3+ 00:00:00 [facility] Influenza Virus 2016-11-18 Completed [facility] 3+ 00:00:00 [facility] Influenza Virus 2016-11-18 Completed [facility] 3+ 00:00:00 [facility] Influenza Virus 2016-11-18 Completed [facility] 3+ 00:00:00 [facility] Influenza Virus 2016-11-18 Completed [facility]+ 00:00:00 [facility] Influenza Virus 2016-11-18 Completed [facility] 3+ 00:00:00 [facility] Influenza Virus 2016-11-18 Completed [facility]+ 00:00:00 [facility] Influenza Virus 2016-11-18 Completed [facility]+ 00:00:00 [facility] Influenza Virus 2016-11-18 Completed [facility] 3+ 00:00:00 [facility] Influenza Virus 2016-11-18 Completed [facility] 3+ 00:00:00 [facility] Influenza Virus 2016-11-18 Completed [facility]+ 00:00:00 [facility] Influenza Virus 2016-11-18 Completed [facility] 3+ 00:00:00 [facility] Influenza Virus 2016-11-18 Completed [facility]+ 00:00:00 [facility] Influenza Virus 2016-11-18 Completed [facility]+ 00:00:00 [facility] Influenza Virus 2016-11-18 Completed [facility]+ 00:00:00 [facility] Influenza Virus 2016-11-18 Completed [facility] 3+ 00:00:00 [facility] Influenza Virus 2016-11-18 Completed [facility] 3+ 00:00:00 [facility] Influenza Virus 2016-11-18 Completed [facility] 3+ 00:00:00 [facility] Influenza Virus 2016-11-18 Completed [facility] 3+ 00:00:00 [facility] Influenza Virus 2016-11-18 Completed [facility] 3+ 00:00:00 [facility] Influenza Virus 2016-11-18 Completed [facility] 3+ 00:00:00 [facility] Influenza Virus 2016-11-18 Completed [facility] 3+ 00:00:00 [facility] Influenza Virus 2016-11-18 Completed [facility] 3+ 00:00:00 [facility] Influenza Virus 2016-11-18 Completed [facility] 3+ 00:00:00 [facility] Influenza Virus 2016-11-18 Completed [facility] 3+ 00:00:00 [facility] Influenza Virus 2016-11-18 Completed [facility] 3+ 00:00:00 [facility] Influenza Virus 2016-11-18 Completed [facility] 3+ 00:00:00 [facility] Influenza Virus 2016-11-18 Completed [facility] 3+ 00:00:00 [facility] Influenza Virus 2016-11-18 Completed [facility] 3+ 00:00:00 [facility] Influenza Virus 2016-11-18 Completed [facility] 3+ 00:00:00 [facility] Influenza Virus 2016-11-18 Completed [facility] 3+ 00:00:00 [facility] Influenza Virus 2016-11-18 Completed [facility] 3+ 00:00:00 [facility] Influenza Virus 2016-11-18 Completed [facility] 3+ 00:00:00 [facility] Influenza Virus 2016-11-18 Completed [facility] 3+ 00:00:00 [facility] Influenza Virus 2016-11-18 Completed [facility] 3+ 00:00:00 [facility] Influenza Virus 2016-11-18 Completed [facility] 3+ 00:00:00 [facility] Influenza Virus 2016-11-18 Completed [facility] 3+ 00:00:00 [facility] Influenza Virus 2016-11-18 Completed [facility] 3+ 00:00:00 [facility] Influenza Virus 2016-11-18 Completed [facility] 3+ 00:00:00 [facility] Influenza Virus 2016-11-18 Completed [facility] 3+ 00:00:00 [facility] Influenza Virus 2016-11-18 Completed [facility] 3+ 00:00:00 [facility] Influenza Virus 2016-11-18 Completed [facility] 3+ 00:00:00 [facility] Influenza Virus 2016-11-18 Completed [facility] 3+ 00:00:00 [facility] Influenza Virus 2016-11-18 Completed [facility] 3+ 00:00:00 [facility] Influenza Virus 2016-11-18 Completed [facility] 3+ 00:00:00 [facility] Influenza Virus 2016-11-18 Completed [facility] 3+ 00:00:00 [facility] Influenza Virus 2016-11-18 Completed [facility] 3+ 00:00:00 [facility] Influenza Virus 2016-11-18 Completed [facility] 3+ 00:00:00 [facility] Influenza Virus 2016-11-18 Completed [facility] 3+ 00:00:00 [facility] Influenza Virus 2016-11-18 Completed [facility] 3+ 00:00:00 [facility] Influenza Virus 2016-11-18 Completed [facility] 3+ 00:00:00 [facility] Influenza Virus 2016-11-18 Completed [facility] 3+ 00:00:00 [facility] Influenza Virus 2016-11-18 Completed [facility] 3+ 00:00:00 [facility] Influenza Virus 2016-11-18 Completed [facility] 3+ 00:00:00 [facility] Influenza Virus 2016-11-18 Completed [facility] 3+ 00:00:00 [facility] Influenza Virus 2016-11-18 Completed [facility] 3+ 00:00:00 [facility] Influenza Virus 2016-11-18 Completed [facility] 3+ 00:00:00 [facility] Influenza Virus 2016-11-18 Completed [facility] 3+ 00:00:00 [facility] Influenza Virus 2016-11-18 Completed [facility] 3+ 00:00:00 [facility] Influenza Virus 2016-11-18 Completed [facility] 3+ 00:00:00 [facility] Influenza Virus 2016-11-18 Completed [facility] 3+ 00:00:00 [facility] Influenza Virus 2016-11-18 Completed [facility] 3+ 00:00:00 [facility] Influenza Virus 2016-11-18 Completed [facility] Vaccine [facility] IM 3+ 00:00:00 [facility] Influenza Virus 2016-11-18 Completed [facility] Vaccine [facility] IM 3+ 00:00:00 [facility] HPV9 2016-04-06 Completed [facility] of 00:00:00 [facility] HPV9 2016-04-06 Completed [facility] of 00:00:00 [facility] HPV9 2016-04-06 Completed [facility] of 00:00:00 [facility] HPV9 2016-04-06 Completed [facility] of 00:00:00 [facility] HPV9 2016-04-06 Completed [facility] of 00:00:00 [facility] HPV9 2016-04-06 Completed [facility] of 00:00:00 [facility] HPV9 2016-04-06 Completed [facility] of 00:00:00 [facility] HPV9 2016-04-06 Completed [facility] of 00:00:00 [facility] HPV9 2016-04-06 Completed [facility] of 00:00:00 [facility] HPV9 2016-04-06 Completed [facility] 00:00:00 [facility] HPV9 2016-04-06 Completed [facility] 00:00:00 [facility] HPV9 2016-04-06 Completed [facility] 00:00:00 [facility] HPV9 2016-04-06 Completed [facility] 00:00:00 [facility] HPV9 2016-04-06 Completed [facility] 00:00:00 [facility] HPV9 2016-04-06 Completed [facility] 00:00:00 [facility] HPV9 2016-04-06 Completed [facility] 00:00:00 [facility] HPV9 2016-04-06 Completed [facility] 00:00:00 [facility] HPV9 2016-04-06 Completed [facility] 00:00:00 [facility] HPV9 2016-04-06 Completed [facility] 00:00:00 [facility] HPV9 2016-04-06 Completed [facility] 00:00:00 [facility] HPV9 2016-04-06 Completed [facility] 00:00:00 [facility] HPV9 2016-04-06 Completed [facility] 00:00:00 [facility] HPV9 2016-04-06 Completed [facility] 00:00:00 [facility] HPV9 2016-04-06 Completed [facility] 00:00:00 [...] Branch HPV9 2016-04-06 Completed [facility] 00:00:00 [facility] HPV9 2016-04-06 Completed [facility] 00:00:00 [facility] HPV9 2016-04-06 Completed [facility] 00:00:00 [facility] HPV9 2016-04-06 Completed [facility] 00:00:00 [facility] HPV9 2016-04-06 Completed [facility] 00:00:00 [facility] HPV9 2016-04-06 Completed [facility] 00:00:00 [facility] HPV9 2016-04-06 Completed [facility] 00:00:00 [facility] HPV9 2016-04-06 Completed [facility] 00:00:00 [facility] HPV9 2016-04-06 Completed [facility] 00:00:00 [facility] HPV9 2016-04-06 Completed [facility] 00:00:00 [facility] HPV9 2016-04-06 Completed [facility] 00:00:00 [facility] HPV9 2016-04-06 Completed [facility] 00:00:00 [facility] HPV9 2016-04-06 Completed [facility] 00:00:00 [facility] HPV9 2016-04-06 Completed [facility] 00:00:00 [facility] HPV9 2016-04-06 Completed [facility] 00:00:00 [facility] HPV9 2016-04-06 Completed [facility] 00:00:00 [facility] HPV9 2016-04-06 Completed [facility] 00:00:00 [facility] HPV9 2016-04-06 Completed [facility] 00:00:00 [facility] HPV9 2016-04-06 Completed [facility] 00:00:00 [facility] HPV9 2016-04-06 Completed [facility] 00:00:00 [facility] HPV9 2016-04-06 Completed [facility] 00:00:00 [facility] HPV9 2016-04-06 Completed [facility] 00:00:00 [facility] HPV9 2016-04-06 Completed [facility] 00:00:00 [facility] HPV9 2016-04-06 Completed [facility] 00:00:00 [facility] HPV9 2016-04-06 Completed [facility] 00:00:00 [facility] HPV9 2016-04-06 Completed [facility] 00:00:00 [facility] HPV9 2016-04-06 Completed [facility] 00:00:00 [facility] HPV9 2016-04-06 Completed [facility] 00:00:00 [facility] HPV9 2016-04-06 Completed [facility] of 00:00:00 [...] Branch HPV9 2016-04-06 Completed [facility] 00:00:00 [facility] HPV9 2016-04-06 Completed [facility] 00:00:00 [facility] HPV9 2016-04-06 Completed [facility] 00:00:00 [facility] HPV9 2016-04-06 Completed [facility] 00:00:00 [facility] HPV9 2016-01-06 Completed [facility] of 00:00:00 [...] Branch HPV9 2016-01-06 Completed [facility] 00:00:00 [facility] HPV9 2016-01-06 Completed [facility] 00:00:00 [facility] HPV9 2016-01-06 Completed [facility] of 00:00:00 [...] Branch HPV9 2016-01-06 Completed [facility] 00:00:00 [facility] HPV9 2016-01-06 Completed [facility] 00:00:00 [facility] HPV9 2016-01-06 Completed [facility] 00:00:00 [facility] HPV9 2016-01-06 Completed [facility] 00:00:00 [facility] HPV9 2016-01-06 Completed [facility] 00:00:00 [facility] HPV9 2016-01-06 Completed [facility] 00:00:00 [facility] HPV9 2016-01-06 Completed [facility] 00:00:00 [facility] HPV9 2016-01-06 Completed [facility] of 00:00:00 [...] Branch HPV9 2016-01-06 Completed [facility] 00:00:00 [facility] HPV9 2016-01-06 Completed [facility] of 00:00:00 [...] Branch HPV9 2016-01-06 Completed [facility] 00:00:00 [facility] HPV9 2016-01-06 Completed [facility] 00:00:00 [facility] HPV9 2016-01-06 Completed [facility] 00:00:00 [facility] HPV9 2016-01-06 Completed [facility] 00:00:00 [facility] HPV9 2016-01-06 Completed [facility] 00:00:00 [facility] HPV9 2016-01-06 Completed [facility] 00:00:00 [facility] HPV9 2016-01-06 Completed [facility] 00:00:00 [facility] HPV9 2016-01-06 Completed [facility] 00:00:00 [facility] HPV9 2016-01-06 Completed [facility] 00:00:00 [facility] HPV9 2015-10-03 Completed [facility] 00:00:00 [facility] HPV9 2015-10-03 Completed [facility] 00:00:00 [facility] HPV9 2015-10-03 Completed [facility] 00:00:00 [facility] HPV9 2015-10-03 Completed [facility] 00:00:00 [facility] HPV9 2015-10-03 Completed [facility] 00:00:00 [facility] HPV9 2015-10-03 Completed [facility] 00:00:00 [facility] HPV9 2015-10-03 Completed [facility] 00:00:00 [facility] HPV9 2015-10-03 Completed [facility] of 00:00:00 [facility] HPV9 2015-10-03 Completed [facility] of 00:00:00 [...] Branch HPV9 2015-10-03 Completed [facility] of 00:00:00 [facility] HPV9 2015-10-03 Completed [facility] of 00:00:00 [...] Branch HPV9 2015-10-03 Completed [facility] 00:00:00 [facility] HPV9 2015-10-03 Completed [facility] of 00:00:00 [...] Branch MMR 2014-06-28 Completed [facility] of 00:00:00 [facility] MMR 2014-06-28 Completed [facility] of 00:00:00 [facility] MMR 2014-06-28 Completed [facility] of 00:00:00 [facility] HPV 2014-04-10 Completed [facility] of 00:00:00 [facility] Meningococcal 2014-04-10 Completed [facility] Polysaccharide 00:00:00 [place] [facility] (groups A, C, Y and Branc h W-135) conjugate vaccine (MCV4P) HPV 2014-04-10 Completed [facility] 00:00:00 [facility] Meningococcal 2014-04-10 Completed [facility] Polysaccharide 00:00:00 [place] [facility] (groups A, C, Y and Branc h W-135) conjugate vaccine (MCV4P) HPV 2014-04-10 Completed [facility] 00:00:00 [facility] Meningococcal 2014-04-10 Completed [facility] Polysaccharide 00:00:00 [place] [facility] (groups A, C, Y and Branc h W-135) conjugate vaccine (MCV4P) HPV 2014-04-10 Completed [facility] 00:00:00 [facility] Meningococcal 2014-04-10 Completed [facility] Polysaccharide 00:00:00 [place] [facility] (groups A, C, Y and Branc h W-135) conjugate vaccine (MCV4P) HPV 2014-04-10 Completed [facility] 00:00:00 [facility] Meningococcal 2014-04-10 Completed [facility] Polysaccharide 00:00:00 [place] [facility] (groups A, C, Y and Branc h W-135) conjugate vaccine (MCV4P) HPV 2014-04-10 Completed [facility] 00:00:00 [facility] Meningococcal 2014-04-10 Completed [facility] Polysaccharide 00:00:00 [place] [facility] (groups A, C, Y and Branc h W-135) conjugate vaccine (MCV4P) HPV 2014-04-10 Completed [facility] 00:00:00 [facility] Meningococcal 2014-04-10 Completed [facility] Polysaccharide 00:00:00 [place] [facility] (groups A, C, Y and Branc h W-135) conjugate vaccine (MCV4P) HPV 2014-04-10 Completed [facility] 00:00:00 [facility] Meningococcal 2014-04-10 Completed [facility] Polysaccharide 00:00:00 [place] [facility] (groups A, C, Y and Branc h W-135) conjugate vaccine (MCV4P) HPV 2014-04-10 Completed [facility] 00:00:00 [facility] Meningococcal 2014-04-10 Completed [facility] Polysaccharide 00:00:00 [place] [facility] (groups A, C, Y and Branc h W-135) conjugate vaccine (MCV4P) HPV 2014-04-10 Completed [facility] 00:00:00 [facility] Meningococcal 2014-04-10 Completed [facility] Polysaccharide 00:00:00 [place] [facility] (groups A, C, Y and Branc h W-135) conjugate vaccine (MCV4P) HPV 2014-04-10 Completed [facility] 00:00:00 [facility] Meningococcal 2014-04-10 Completed [facility] Polysaccharide 00:00:00 [place] [facility] (groups A, C, Y and Branc h W-135) conjugate vaccine (MCV4P) HPV 2014-04-10 Completed [facility] 00:00:00 [facility] Meningococcal 2014-04-10 Completed [facility] Polysaccharide 00:00:00 [place] [facility] (groups A, C, Y and Branc h W-135) conjugate vaccine (MCV4P) HPV 2014-04-10 Completed [facility] 00:00:00 [facility] Meningococcal 2014-04-10 Completed [facility] Polysaccharide 00:00:00 [place] [facility] (groups A, C, Y and Branc h W-135) conjugate vaccine (MCV4P) HPV 2014-04-10 Completed [facility] 00:00:00 [facility] Meningococcal 2014-04-10 Completed [facility] Polysaccharide 00:00:00 [place] [facility] (groups A, C, Y and Branc h W-135) conjugate vaccine (MCV4P) HPV 2014-04-10 Completed [facility] 00:00:00 [facility] Meningococcal 2014-04-10 Completed [facility] Polysaccharide 00:00:00 [place] [facility] (groups A, C, Y and Branc h W-135) conjugate vaccine (MCV4P) HPV 2014-04-10 Completed [facility] 00:00:00 [facility] Meningococcal 2014-04-10 Completed [facility] Polysaccharide 00:00:00 [place] [facility] (groups A, C, Y and Branc h W-135) conjugate vaccine (MCV4P) HPV 2014-04-10 Completed [facility] 00:00:00 [facility] Meningococcal 2014-04-10 Completed [facility] Polysaccharide 00:00:00 [place] [facility] (groups A, C, Y and Branc h W-135) conjugate vaccine (MCV4P) HPV 2014-04-10 Completed [facility] 00:00:00 [facility] Meningococcal 2014-04-10 Completed [facility] Polysaccharide 00:00:00 [place] [facility] (groups A, C, Y and Branc h W-135) conjugate vaccine (MCV4P) HPV 2014-04-10 Completed [facility] 00:00:00 [facility] Meningococcal 2014-04-10 Completed [facility] Polysaccharide 00:00:00 [place] [facility] (groups A, C, Y and Branc h W-135) conjugate vaccine (MCV4P) HPV 2014-04-10 Completed [facility] 00:00:00 [facility] Meningococcal 2014-04-10 Completed [facility] Polysaccharide 00:00:00 [place] [facility] (groups A, C, Y and Branc h W-135) conjugate vaccine (MCV4P) HPV 2014-04-10 Completed [facility] 00:00:00 [facility] Meningococcal 2014-04-10 Completed [facility] Polysaccharide 00:00:00 [place] [facility] (groups A, C, Y and Branc h W-135) conjugate vaccine (MCV4P) HPV 2014-04-10 Completed [facility] 00:00:00 [facility] Meningococcal 2014-04-10 Completed [facility] Polysaccharide 00:00:00 [place] [facility] (groups A, C, Y and Branc h W-135) conjugate vaccine (MCV4P) HPV 2014-04-10 Completed [facility] 00:00:00 [facility] Meningococcal 2014-04-10 Completed [facility] Polysaccharide 00:00:00 [place] [facility] (groups A, C, Y and Branc h W-135) conjugate vaccine (MCV4P) HPV 2014-04-10 Completed [facility] 00:00:00 [facility] Meningococcal 2014-04-10 Completed [facility] Polysaccharide 00:00:00 [place] [facility] (groups A, C, Y and Branc h W-135) conjugate vaccine (MCV4P) HPV 2014-04-10 Completed [facility] 00:00:00 [facility] Meningococcal 2014-04-10 Completed [facility] Polysaccharide 00:00:00 [place] [facility] (groups A, C, Y and Branc h W-135) conjugate vaccine (MCV4P) HPV 2014-04-10 Completed [facility] 00:00:00 [facility] Meningococcal 2014-04-10 Completed [facility] Polysaccharide 00:00:00 [place] [facility] (groups A, C, Y and Branc h W-135) conjugate vaccine (MCV4P) HPV 2014-04-10 Completed [facility] 00:00:00 [facility] Meningococcal 2014-04-10 Completed [facility] Polysaccharide 00:00:00 [place] [facility] (groups A, C, Y and Branc h W-135) conjugate vaccine (MCV4P) HPV 2014-04-10 Completed [facility] 00:00:00 [facility] Meningococcal 2014-04-10 Completed [facility] Polysaccharide 00:00:00 [place] [facility] (groups A, C, Y and Branc h W-135) conjugate vaccine (MCV4P) HPV 2014-04-10 Completed [facility] 00:00:00 [facility] Meningococcal 2014-04-10 Completed [facility] Polysaccharide 00:00:00 [place] [facility] (groups A, C, Y and Branc h W-135) conjugate vaccine (MCV4P) HPV 2014-04-10 Completed [facility] 00:00:00 [facility] Meningococcal 2014-04-10 Completed [facility] Polysaccharide 00:00:00 [place] [facility] (groups A, C, Y and Branc h W-135) conjugate vaccine (MCV4P) HPV 2014-04-10 Completed [facility] 00:00:00 [facility] Meningococcal 2014-04-10 Completed [facility] Polysaccharide 00:00:00 [place] [facility] (groups A, C, Y and Branc h W-135) conjugate vaccine (MCV4P) HPV 2014-04-10 Completed [facility] 00:00:00 [facility] Meningococcal 2014-04-10 Completed [facility] Polysaccharide 00:00:00 [place] [facility] (groups A, C, Y and Branc h W-135) conjugate vaccine (MCV4P) HPV 2014-04-10 Completed [facility] 00:00:00 [facility] Meningococcal 2014-04-10 Completed [facility] Polysaccharide 00:00:00 [place] [facility] (groups A, C, Y and Branc h W-135) conjugate vaccine (MCV4P) HPV 2014-04-10 Completed [facility] 00:00:00 [facility] Meningococcal 2014-04-10 Completed [facility] Polysaccharide 00:00:00 [place] [facility] (groups A, C, Y and Branc h W-135) conjugate vaccine (MCV4P) HPV 2014-04-10 Completed [facility] 00:00:00 [facility] Meningococcal 2014-04-10 Completed [facility] Polysaccharide 00:00:00 [place] [facility] (groups A, C, Y and Branc h W-135) conjugate vaccine (MCV4P) HPV 2014-04-10 Completed [facility] 00:00:00 [facility] Meningococcal 2014-04-10 Completed [facility] Polysaccharide 00:00:00 [place] [facility] (groups A, C, Y and Branc h W-135) conjugate vaccine (MCV4P) HPV 2014-04-10 Completed [facility] 00:00:00 [facility] Meningococcal 2014-04-10 Completed [facility] Polysaccharide 00:00:00 [place] [facility] (groups A, C, Y and Branc h W-135) conjugate vaccine (MCV4P) HPV 2014-04-10 Completed [facility] 00:00:00 [facility] Meningococcal 2014-04-10 Completed [facility] Polysaccharide 00:00:00 [place] [facility] (groups A, C, Y and Branc h W-135) conjugate vaccine (MCV4P) HPV 2014-04-10 Completed [facility] 00:00:00 [facility] Meningococcal 2014-04-10 Completed [facility] Polysaccharide 00:00:00 [place] [facility] (groups A, C, Y and Branc h W-135) conjugate vaccine (MCV4P) TDAP 2014-03-18 Completed [facility] 00:00:00 [facility] TDAP 2014-03-18 Completed [facility] 00:00:00 [facility] TDAP 2014-03-18 Completed [facility] of 00:00:00 [facility] TDAP 2014-03-18 Completed [facility] of 00:00:00 [facility] TDAP 2014-03-18 Completed [facility] 00:00:00 [facility] TDAP 2014-03-18 Completed [facility] of 00:00:00 [facility] TDAP 2014-03-18 Completed [facility] of 00:00:00 [facility] TDAP 2014-03-18 Completed [facility] of 00:00:00 [facility] TDAP 2014-03-18 Completed [facility] of 00:00:00 [facility] TDAP 2014-03-18 Completed [facility] of 00:00:00 [facility] TDAP 2014-03-18 Completed [facility] of 00:00:00 [facility] TDAP 2014-03-18 Completed [facility] 00:00:00 [facility] TDAP 2014-03-18 Completed [facility] of 00:00:00 [facility] TDAP 2014-03-18 Completed [facility] of 00:00:00 [facility] TDAP 2014-03-18 Completed [facility] of 00:00:00 [facility] TDAP 2014-03-18 Completed [facility] of 00:00:00 [facility] TDAP 2014-03-18 Completed [facility] of 00:00:00 [facility] TDAP 2014-03-18 Completed [facility] of 00:00:00 [facility] TDAP 2014-03-18 Completed [facility] of 00:00:00 [facility] TDAP 2014-03-18 Completed [facility] of 00:00:00 [facility] TDAP 2014-03-18 Completed [facility] of 00:00:00 [facility] TDAP 2014-03-18 Completed [facility] of 00:00:00 [facility] TDAP 2014-03-18 Completed [facility] of 00:00:00 [facility] TDAP 2014-03-18 Completed [facility] of 00:00:00 [facility] TDAP 2014-03-18 Completed [facility] of 00:00:00 [facility] TDAP 2014-03-18 Completed [facility] 00:00:00 [facility] TDAP 2014-03-18 Completed [facility] 00:00:00 [facility] TDAP 2014-03-18 Completed [facility] 00:00:00 [facility] TDAP 2014-03-18 Completed [facility] 00:00:00 [facility] TDAP 2014-03-18 Completed [facility] 00:00:00 [facility] TDAP 2014-03-18 Completed [facility] 00:00:00 [facility] TDAP 2014-03-18 Completed [facility] 00:00:00 [facility] TDAP 2014-03-18 Completed [facility] 00:00:00 [facility] TDAP 2014-03-18 Completed [facility] 00:00:00 [facility] TDAP 2014-03-18 Completed [facility] 00:00:00 [facility] TDAP 2014-03-18 Completed [facility] 00:00:00 [facility] TDAP 2014-03-18 Completed [facility] 00:00:00 [facility] TDAP 2014-03-18 Completed [facility] 00:00:00 [facility] TDAP 2014-03-18 Completed [facility] 00:00:00 [facility] TDAP 2014-03-18 Completed [facility] 00:00:00 [facility] TDAP 2014-03-18 Completed [facility] 00:00:00 [facility] TDAP 2014-03-18 Completed [facility] 00:00:00 [facility] TDAP 2014-03-18 Completed [facility] 00:00:00 [facility] TDAP 2014-03-18 Completed [facility] 00:00:00 [facility] TDAP 2014-03-18 Completed [facility] 00:00:00 [facility] TDAP 2014-03-18 Completed [facility] 00:00:00 [facility] TDAP 2014-03-18 Completed [facility] 00:00:00 [facility] TDAP 2014-03-18 Completed [facility] 00:00:00 [facility] TDAP 2014-03-18 Completed [facility] 00:00:00 [facility] TDAP 2014-03-18 Completed [facility] 00:00:00 [facility] TDAP 2014-03-18 Completed [facility] 00:00:00 [facility] TDAP 2014-03-18 Completed [facility] 00:00:00 [facility] TDAP 2014-03-18 Completed [facility] 00:00:00 [facility] TDAP 2014-03-18 Completed [facility] 00:00:00 [facility] TDAP 2014-03-18 Completed [facility] 00:00:00 [facility] TDAP 2014-03-18 Completed [facility] 00:00:00 [facility] TDAP 2014-03-18 Completed [facility] 00:00:00 [facility] TDAP 2014-03-18 Completed [facility] 00:00:00 [facility] TDAP 2014-03-18 Completed [facility] 00:00:00 [facility] TDAP 2014-03-18 Completed [facility] 00:00:00 [facility] TDAP 2014-03-18 Completed [facility] 00:00:00 [facility] TDAP 2014-03-18 Completed [facility] 00:00:00 [facility] TDAP 2014-03-18 Completed [facility] 00:00:00 [facility] TDAP 2014-03-18 Completed [facility] 00:00:00 [facility] TDAP 2014-03-18 Completed [facility] 00:00:00 [facility] TDAP 2014-03-18 Completed [facility] 00:00:00 [facility] TDAP 2014-03-18 Completed [facility] 00:00:00 [facility] TDAP 2014-03-18 Completed [facility] 00:00:00 [facility] TDAP 2014-03-18 Completed [facility] 00:00:00 [facility] TDAP 2014-03-18 Completed [facility] 00:00:00 [facility] TDAP 2014-03-18 Completed [facility] 00:00:00 [facility] TDAP 2014-03-18 Completed [facility] 00:00:00 [facility] TDAP 2014-03-18 Completed [facility] 00:00:00 [facility] TDAP 2014-03-18 Completed [facility] 00:00:00 [facility] TDAP 2014-03-18 Completed [facility] 00:00:00 [facility] TDAP 2014-03-18 Completed [facility] 00:00:00 [facility] TDAP 2014-03-18 Completed [facility] 00:00:00 [facility] TDAP 2014-03-18 Completed [facility] 00:00:00 [facility] TDAP 2014-03-18 Completed [facility] 00:00:00 [facility] TDAP 2014-03-18 Completed [facility] 00:00:00 [facility] TDAP 2014-03-18 Completed [facility] 00:00:00 [facility] TDAP 2014-03-18 Completed [facility] 00:00:00 [facility] TDAP 2014-03-18 Completed [facility] 00:00:00 [facility] TDAP 2014-03-18 Completed [facility] 00:00:00 [facility] TDAP 2014-03-18 Completed [facility] 00:00:00 [facility] Influenza Virus 2012-12-21 Completed [facility] Vaccine - Whole 00:00:00 [facility] HPV 2012-12-21 Completed [facility] 00:00:00 [facility] Influenza Virus 2012-12-21 Completed [facility] Vaccine - Whole 00:00:00 [facility] HPV 2012-12-21 Completed [facility] 00:00:00 [facility] Influenza Virus 2012-12-21 Completed [facility] Vaccine - Whole 00:00:00 [facility] HPV 2012-12-21 Completed [facility] 00[facility]00 [facility] [facility] Influenza Virus 2012-12-21 Completed [facility] Vaccine - Whole 00:00:00 [facility] HPV 2012-12-21 Completed [facility] 00:00:00 [facility] Influenza Virus 2012-12-21 Completed [facility] Vaccine - Whole 00:00:00 [facility] HPV 2012-12-21 Completed [facility] 00:00:00 [facility] Influenza Virus 2012-12-21 Completed [facility] Vaccine - Whole 00:00:00 [facility] HPV 2012-12-21 Completed [facility] 00:00:00 [facility] Influenza Virus 2012-12-21 Completed [facility] Vaccine - Whole 00:00:00 [facility] HPV 2012-12-21 Completed [facility] 00:00:00 [facility] Influenza Virus 2012-12-21 Completed [facility] Vaccine - Whole 00:00:00 [facility] HPV 2012-12-21 Completed [facility] 00:00:00 [facility] Influenza Virus 2012-12-21 Completed [facility] Vaccine - Whole 00:00:00 [facility] HPV 2012-12-21 Completed [facility] 00:00:00 [facility] Influenza Virus 2012-12-21 Completed [facility] Vaccine - Whole 00:00:00 [facility] HPV 2012-12-21 Completed [facility] 00:00:00 [facility] Influenza Virus 2012-12-21 Completed [facility] Vaccine - Whole 00:00:00 [facility] HPV 2012-12-21 Completed [facility] 00:00:00 [facility] Influenza Virus 2012-12-21 Completed [facility] Vaccine - Whole 00:00:00 [facility] HPV 2012-12-21 Completed [facility] 00:00:00 [facility] Influenza Virus 2012-12-21 Completed [facility] Vaccine - Whole 00:00:00 [facility] HPV 2012-12-21 Completed [facility] 00:00:00 [facility] Influenza Virus 2012-12-21 Completed [facility] Vaccine - Whole 00:00:00 [facility] HPV 2012-12-21 Completed [facility] 00:00:00 [facility] Influenza Virus 2012-12-21 Completed [facility] Vaccine - Whole 00:00:00 [facility] HPV 2012-12-21 Completed [facility] 00:00:00 [facility] Influenza Virus 2012-12-21 Completed [facility] Vaccine - Whole 00:00:00 [facility] HPV 2012-12-21 Completed [facility] 00:00:00 [facility] Influenza Virus 2012-12-21 Completed [facility] Vaccine - Whole 00:00:00 [facility] HPV 2012-12-21 Completed [facility] 00:00:00 [facility] Influenza Virus 2012-12-21 Completed [facility] Vaccine - Whole 00:00:00 [facility] HPV 2012-12-21 Completed [facility] 00:00:00 [facility] Influenza Virus 2012-12-21 Completed [facility] Vaccine - Whole 00:00:00 [facility] HPV 2012-12-21 Completed [facility] 00:00:00 [facility] Influenza Virus 2012-12-21 Completed [facility] Vaccine - Whole 00:00:00 [facility] HPV 2012-12-21 Completed [facility] 00:00:00 [facility] Influenza Virus 2012-12-21 Completed [facility] Vaccine - Whole 00:00:00 [facility] HPV 2012-12-21 Completed [facility] 00:00:00 [facility] Influenza Virus 2012-12-21 Completed [facility] Vaccine - Whole 00:00:00 [facility] HPV 2012-12-21 Completed [facility] 00:00:00 [facility] Influenza Virus 2012-12-21 Completed [facility] Vaccine - Whole 00:00:00 [facility] HPV 2012-12-21 Completed [facility] 00:00:00 [facility] Influenza Virus 2012-12-21 Completed [facility] Vaccine - Whole 00:00:00 [facility] HPV 2012-12-21 Completed [facility] 00:00:00 [facility] Influenza Virus 2012-12-21 Completed [facility] Vaccine - Whole 00:00:00 [facility] HPV 2012-12-21 Completed [facility] 00:00:00 [facility] Influenza Virus 2012-12-21 Completed [facility] Vaccine - Whole 00:00:00 [facility] HPV 2012-12-21 Completed [facility] 00:00:00 [facility] Influenza Virus 2012-12-21 Completed [facility] Vaccine - Whole 00:00:00 [facility] HPV 2012-12-21 Completed [facility] 00:00:00 [facility] Influenza Virus 2012-12-21 Completed [facility] Vaccine - Whole 00:00:00 [facility] HPV 2012-12-21 Completed [facility] 00:00:00 [facility] Influenza Virus 2012-12-21 Completed [facility] Vaccine - Whole 00:00:00 [facility] HPV 2012-12-21 Completed [facility] 00:00:00 [facility] Influenza Virus 2012-12-21 Completed [facility] Vaccine - Whole 00:00:00 [facility] HPV 2012-12-21 Completed [facility] 00:00:00 [facility] Influenza Virus 2012-12-21 Completed [facility] Vaccine - Whole 00:00:00 [facility] HPV 2012-12-21 Completed [facility] 00:00:00 [facility] Influenza Virus 2012-12-21 Completed [facility] Vaccine - Whole 00:00:00 [facility] HPV 2012-12-21 Completed [facility] 00:00:00 [facility] Influenza Virus 2012-12-21 Completed [facility] Vaccine - Whole 00:00:00 [facility] HPV 2012-12-21 Completed [facility] 00:00:00 [facility] Influenza Virus 2012-12-21 Completed [facility] Vaccine - Whole 00:00:00 [facility] HPV 2012-12-21 Completed [facility] 00:00:00 [facility] Influenza Virus 2012-12-21 Completed [facility] Vaccine - Whole 00:00:00 [facility] HPV 2012-12-21 Completed [facility] 00:00:00 [facility] Influenza Virus 2012-12-21 Completed [facility] Vaccine - Whole 00:00:00 [facility] HPV 2012-12-21 Completed [facility] 00:00:00 [facility] Influenza Virus 2012-12-21 Completed [facility] Vaccine - Whole 00:00:00 [facility] HPV 2012-12-21 Completed [facility] 00:00:00 [facility] Influenza Virus 2012-12-21 Completed [facility] Vaccine - Whole 00:00:00 [facility] HPV 2012-12-21 Completed [facility] 00:00:00 [facility] Influenza Virus 2012-12-21 Completed [facility] Vaccine - Whole 00:00:00 [facility] HPV 2012-12-21 Completed [facility] 00:00:00 [facility] TDAP 2009-07-22 Completed [facility] 00:00:00 [facility] HEPATITIS A 2009-07-22 Completed [facility] 00:00:00 [facility] Meningococcal 2009-07-22 Completed [facility] Polysaccharide 00:00:00 [place] [facility] (groups A, C, Y and Branc h W-135) conjugate vaccine (MCV4P) TDAP 2009-07-22 Completed [facility] 00:00:00 [facility] HEPATITIS A 2009-07-22 Completed [facility] 00:00:00 [facility] Meningococcal 2009-07-22 Completed [facility] Polysaccharide 00:00:00 [place] [facility] (groups A, C, Y and Branc h W-135) conjugate vaccine (MCV4P) TDAP 2009-07-22 Completed [facility] 00:00:00 [facility] HEPATITIS A 2009-07-22 Completed [facility] 00:00:00 [facility] Meningococcal 2009-07-22 Completed [facility] Polysaccharide 00:00:00 [place] [facility] (groups A, C, Y and Branc h W-135) conjugate vaccine (MCV4P) TDAP 2009-07-22 Completed [facility] 00:00:00 [facility] HEPATITIS A 2009-07-22 Completed [facility] 00:00:00 [facility] Meningococcal 2009-07-22 Completed [facility] Polysaccharide 00:00:00 [place] [facility] (groups A, C, Y and Branc h W-135) conjugate vaccine (MCV4P) TDAP 2009-07-22 Completed [facility] 00:00:00 [facility] HEPATITIS A 2009-07-22 Completed [facility] 00:00:00 [facility] Meningococcal 2009-07-22 Completed [facility] Polysaccharide 00:00:00 [place] [facility] (groups A, C, Y and Branc h W-135) conjugate vaccine (MCV4P) TDAP 2009-07-22 Completed [facility] 00:00:00 [facility] HEPATITIS A 2009-07-22 Completed [facility] 00:00:00 [facility] Meningococcal 2009-07-22 Completed [facility] Polysaccharide 00:00:00 [place] [facility] (groups A, C, Y and Branc h W-135) conjugate vaccine (MCV4P) TDAP 2009-07-22 Completed [facility] 00:00:00 [facility] HEPATITIS A 2009-07-22 Completed [facility] 00:00:00 [facility] Meningococcal 2009-07-22 Completed [facility] Polysaccharide 00:00:00 [place] [facility] (groups A, C, Y and Branc h W-135) conjugate vaccine (MCV4P) TDAP 2009-07-22 Completed [facility] 00:00:00 [facility] HEPATITIS A 2009-07-22 Completed [facility] 00:00:00 [facility] Meningococcal 2009-07-22 Completed [facility] Polysaccharide 00:00:00 [place] [facility] (groups A, C, Y and Branc h W-135) conjugate vaccine (MCV4P) TDAP 2009-07-22 Completed [facility] 00:00:00 [facility] HEPATITIS A 2009-07-22 Completed [facility] 00:00:00 [facility] Meningococcal 2009-07-22 Completed [facility] Polysaccharide 00:00:00 [place] [facility] (groups A, C, Y and Branc h W-135) conjugate vaccine (MCV4P) TDAP 2009-07-22 Completed [facility] 00:00:00 [facility] HEPATITIS A 2009-07-22 Completed [facility] 00:00:00 [facility] Meningococcal 2009-07-22 Completed [facility] Polysaccharide 00:00:00 [place] [facility] (groups A, C, Y and Branc h W-135) conjugate vaccine (MCV4P) TDAP 2009-07-22 Completed [facility] 00:00:00 [facility] HEPATITIS A 2009-07-22 Completed [facility] 00:00:00 [facility] Meningococcal 2009-07-22 Completed [facility] Polysaccharide 00:00:00 [place] [facility] (groups A, C, Y and Branc h W-135) conjugate vaccine (MCV4P) TDAP 2009-07-22 Completed [facility] 00:00:00 [facility] HEPATITIS A 2009-07-22 Completed [facility] 00:00:00 [facility] Meningococcal 2009-07-22 Completed [facility] Polysaccharide 00:00:00 [place] [facility] (groups A, C, Y and Branc h W-135) conjugate vaccine (MCV4P) TDAP 2009-07-22 Completed [facility] 00:00:00 [facility] HEPATITIS A 2009-07-22 Completed [facility] 00:00:00 [facility] Meningococcal 2009-07-22 Completed [facility] Polysaccharide 00:00:00 [place] [facility] (groups A, C, Y and Branc h W-135) conjugate vaccine (MCV4P) TDAP 2009-07-22 Completed [facility] 00:00:00 [facility] HEPATITIS A 2009-07-22 Completed [facility] 00:00:00 [facility] Meningococcal 2009-07-22 Completed [facility] Polysaccharide 00:00:00 [place] [facility] (groups A, C, Y and Branc h W-135) conjugate vaccine (MCV4P) TDAP 2009-07-22 Completed [facility] 00:00:00 [facility] HEPATITIS A 2009-07-22 Completed [facility] 00:00:00 [facility] Meningococcal 2009-07-22 Completed [facility] Polysaccharide 00:00:00 [place] [facility] (groups A, C, Y and Branc h W-135) conjugate vaccine (MCV4P) TDAP 2009-07-22 Completed [facility] 00:00:00 [facility] HEPATITIS A 2009-07-22 Completed [facility] 00:00:00 [facility] Meningococcal 2009-07-22 Completed [facility] Polysaccharide 00:00:00 [place] [facility] (groups A, C, Y and Branc h W-135) conjugate vaccine (MCV4P) TDAP 2009-07-22 Completed [facility] 00:00:00 [facility] HEPATITIS A 2009-07-22 Completed [facility] 00:00:00 [facility] Meningococcal 2009-07-22 Completed [facility] Polysaccharide 00:00:00 [place] [facility] (groups A, C, Y and Branc h W-135) conjugate vaccine (MCV4P) TDAP 2009-07-22 Completed [facility] 00:00:00 [facility] HEPATITIS A 2009-07-22 Completed [facility] 00:00:00 [facility] Meningococcal 2009-07-22 Completed [facility] Polysaccharide 00:00:00 [place] [facility] (groups A, C, Y and Branc h W-135) conjugate vaccine (MCV4P) TDAP 2009-07-22 Completed [facility] 00:00:00 [facility] HEPATITIS A 2009-07-22 Completed [facility] 00:00:00 [facility] Meningococcal 2009-07-22 Completed [facility] Polysaccharide 00:00:00 [place] [facility] (groups A, C, Y and Branc h W-135) conjugate vaccine (MCV4P) TDAP 2009-07-22 Completed [facility] 00:00:00 [facility] HEPATITIS A 2009-07-22 Completed [facility] 00:00:00 [facility] Meningococcal 2009-07-22 Completed [facility] Polysaccharide 00:00:00 [place] [facility] (groups A, C, Y and Branc h W-135) conjugate vaccine (MCV4P) TDAP 2009-07-22 Completed [facility] 00:00:00 [facility] HEPATITIS A 2009-07-22 Completed [facility] 00:00:00 [facility] Meningococcal 2009-07-22 Completed [facility] Polysaccharide 00:00:00 [place] [facility] (groups A, C, Y and Branc h W-135) conjugate vaccine (MCV4P) TDAP 2009-07-22 Completed [facility] 00:00:00 [facility] HEPATITIS A 2009-07-22 Completed [facility] 00:00:00 [facility] Meningococcal 2009-07-22 Completed [facility] Polysaccharide 00:00:00 [place] [facility] (groups A, C, Y and Branc h W-135) conjugate vaccine (MCV4P) TDAP 2009-07-22 Completed [facility] 00:00:00 [facility] HEPATITIS A 2009-07-22 Completed [facility] 00:00:00 [facility] Meningococcal 2009-07-22 Completed [facility] Polysaccharide 00:00:00 [place] [facility] (groups A, C, Y and Branc h W-135) conjugate vaccine (MCV4P) TDAP 2009-07-22 Completed [facility] 00:00:00 [facility] HEPATITIS A 2009-07-22 Completed [facility] 00:00:00 [facility] Meningococcal 2009-07-22 Completed [facility] Polysaccharide 00:00:00 [place] [facility] (groups A, C, Y and Branc h W-135) conjugate vaccine (MCV4P) TDAP 2009-07-22 Completed [facility] 00:00:00 [facility] HEPATITIS A 2009-07-22 Completed [facility] 00:00:00 [facility] Meningococcal 2009-07-22 Completed [facility] Polysaccharide 00:00:00 [place] [facility] (groups A, C, Y and Branc h W-135) conjugate vaccine (MCV4P) TDAP 2009-07-22 Completed [facility] 00:00:00 [facility] HEPATITIS A 2009-07-22 Completed [facility] 00:00:00 [facility] Meningococcal 2009-07-22 Completed [facility] Polysaccharide 00:00:00 [place] [facility] (groups A, C, Y and Branc h W-135) conjugate vaccine (MCV4P) TDAP 2009-07-22 Completed [facility] 00:00:00 [facility] HEPATITIS A 2009-07-22 Completed [facility] 00:00:00 [facility] Meningococcal 2009-07-22 Completed [facility] Polysaccharide 00:00:00 [place] [facility] (groups A, C, Y and Branc h W-135) conjugate vaccine (MCV4P) TDAP 2009-07-22 Completed [facility] 00:00:00 [facility] HEPATITIS A 2009-07-22 Completed [facility] 00:00:00 [facility] Meningococcal 2009-07-22 Completed [facility] Polysaccharide 00:00:00 [place] [facility] (groups A, C, Y and Branc h W-135) conjugate vaccine (MCV4P) TDAP 2009-07-22 Completed [facility] 00:00:00 [facility] HEPATITIS A 2009-07-22 Completed [facility] 00:00:00 [facility] Meningococcal 2009-07-22 Completed [facility] Polysaccharide 00:00:00 [place] [facility] (groups A, C, Y and Branc h W-135) conjugate vaccine (MCV4P) TDAP 2009-07-22 Completed [facility] 00:00:00 [facility] HEPATITIS A 2009-07-22 Completed [facility] 00:00:00 [facility] Meningococcal 2009-07-22 Completed [facility] Polysaccharide 00:00:00 [place] [facility] (groups A, C, Y and Branc h W-135) conjugate vaccine (MCV4P) TDAP 2009-07-22 Completed [facility] 00:00:00 [facility] HEPATITIS A 2009-07-22 Completed [facility] 00:00:00 [facility] Meningococcal 2009-07-22 Completed [facility] Polysaccharide 00:00:00 [place] [facility] (groups A, C, Y and Branc h W-135) conjugate vaccine (MCV4P) TDAP 2009-07-22 Completed [facility] 00:00:00 [facility] HEPATITIS A 2009-07-22 Completed [facility] 00:00:00 [facility] Meningococcal 2009-07-22 Completed [facility] Polysaccharide 00:00:00 [place] [facility] (groups A, C, Y and Branc h W-135) conjugate vaccine (MCV4P) TDAP 2009-07-22 Completed [facility] 00:00:00 [facility] HEPATITIS A 2009-07-22 Completed [facility] 00:00:00 [facility] Meningococcal 2009-07-22 Completed [facility] Polysaccharide 00:00:00 [place] [facility] (groups A, C, Y and Branc h W-135) conjugate vaccine (MCV4P) TDAP 2009-07-22 Completed [facility] 00:00:00 [facility] HEPATITIS A 2009-07-22 Completed [facility] 00:00:00 [facility] Meningococcal 2009-07-22 Completed [facility] Polysaccharide 00:00:00 [place] [facility] (groups A, C, Y and Branc h W-135) conjugate vaccine (MCV4P) TDAP 2009-07-22 Completed [facility] 00:00:00 [facility] HEPATITIS A 2009-07-22 Completed [facility] 00:00:00 [facility] Meningococcal 2009-07-22 Completed [facility] Polysaccharide 00:00:00 [place] [facility] (groups A, C, Y and Branc h W-135) conjugate vaccine (MCV4P) TDAP 2009-07-22 Completed [facility] 00:00:00 [facility] HEPATITIS A 2009-07-22 Completed [facility] 00:00:00 [facility] Meningococcal 2009-07-22 Completed [facility] Polysaccharide 00:00:00 [place] [facility] (groups A, C, Y and Branc h W-135) conjugate vaccine (MCV4P) TDAP 2009-07-22 Completed [facility] 00:00:00 [facility] HEPATITIS A 2009-07-22 Completed [facility] 00:00:00 [facility] Meningococcal 2009-07-22 Completed [facility] Polysaccharide 00:00:00 [place] [facility] (groups A, C, Y and Branc h W-135) conjugate vaccine (MCV4P) TDAP 2009-07-22 Completed [facility] 00:00:00 [facility] HEPATITIS A 2009-07-22 Completed [facility] 00:00:00 [facility] Meningococcal 2009-07-22 Completed [facility] Polysaccharide 00:00:00 [place] [facility] (groups A, C, Y and Branc h W-135) conjugate vaccine (MCV4P) TDAP 2009-07-22 Completed [facility] 00:00:00 [facility] HEPATITIS A 2009-07-22 Completed [facility] 00:00:00 [facility] Meningococcal 2009-07-22 Completed [facility] Polysaccharide 00:00:00 [place] [facility] (groups A, C, Y and Branc h W-135) conjugate vaccine (MCV4P) HEPATITIS A 2008-07-11 Completed [facility] 00:00:00 [facility] HEPATITIS A 2008-07-11 Completed [facility] 00:00:00 [facility] HEPATITIS A 2008-07-11 Completed [facility] 00:00:00 [facility] HEPATITIS A 2008-07-11 Completed [facility] 00:00:00 [facility] HEPATITIS A 2008-07-11 Completed [facility] 00:00:00 [facility] HEPATITIS A 2008-07-11 Completed [facility] 00:00:00 [facility] HEPATITIS A 2008-07-11 Completed [facility] 00:00:00 [facility] HEPATITIS A 2008-07-11 Completed [facility] 00:00:00 [facility] HEPATITIS A 2008-07-11 Completed [facility] 00:00:00 [facility] HEPATITIS A 2008-07-11 Completed [facility] 00:00:00 [facility] HEPATITIS A 2008-07-11 Completed [facility] 00:00:00 [facility] HEPATITIS A 2008-07-11 Completed [facility] 00:00:00 [facility] HEPATITIS A 2008-07-11 Completed [facility] 00:00:00 [facility] HEPATITIS A 2008-07-11 Completed [facility] 00:00:00 [facility] HEPATITIS A 2008-07-11 Completed [facility] 00:00:00 [facility] HEPATITIS A 2008-07-11 Completed [facility] 00:00:00 [facility] HEPATITIS A 2008-07-11 Completed [facility] 00:00:00 [facility] HEPATITIS A 2008-07-11 Completed [facility] 00:00:00 [facility] HEPATITIS A 2008-07-11 Completed [facility] 00:00:00 [facility] HEPATITIS A 2008-07-11 Completed [facility] 00:00:00 [facility] HEPATITIS A 2008-07-11 Completed [facility] 00:00:00 [facility] HEPATITIS A 2008-07-11 Completed [facility] 00:00:00 [facility] HEPATITIS A 2008-07-11 Completed [facility] 00:00:00 [facility] HEPATITIS A 2008-07-11 Completed [facility] 00:00:00 [facility] HEPATITIS A 2008-07-11 Completed [facility] 00:00:00 [facility] HEPATITIS A 2008-07-11 Completed [facility] 00:00:00 [facility] HEPATITIS A 2008-07-11 Completed [facility] 00:00:00 [facility] HEPATITIS A 2008-07-11 Completed [facility] 00:00:00 [facility] HEPATITIS A 2008-07-11 Completed [facility] 00:00:00 [facility] HEPATITIS A 2008-07-11 Completed [facility] 00:00:00 [facility] HEPATITIS A 2008-07-11 Completed [facility] 00:00:00 [facility] HEPATITIS A 2008-07-11 Completed [facility] 00:00:00 [facility] HEPATITIS A 2008-07-11 Completed [facility] 00:00:00 [facility] HEPATITIS A 2008-07-11 Completed [facility] 00:00:00 [facility] HEPATITIS A 2008-07-11 Completed [facility] 00:00:00 [facility] HEPATITIS A 2008-07-11 Completed [facility] 00:00:00 [facility] HEPATITIS A 2008-07-11 Completed [facility] 00:00:00 [facility] HEPATITIS A 2008-07-11 Completed [facility] 00:00:00 [facility] HEPATITIS A 2008-07-11 Completed [facility] 00:00:00 [facility] Varicella 2006-04-29 Completed [facility] of (varivax)(chicken 00:00:00 [...] 2002-06-30 Completed [facility] Formulation 00:00:00 [facility] MMR 2002-06-30 Completed [facility] 00:00:00 [facility] IPV 2002-06-30 Completed [facility] 00:00:00 [facility] DTaP, Unspecified 2002-06-30 Completed [facility] Formulation 00:00:00 [facility] MMR 2002-06-30 Completed [facility] 00:00:00 [facility] IPV 2002-06-30 Completed [facility] 00:00:00 [facility] DTaP, Unspecified 2002-06-30 Completed [facility] Formulation 00:00:00 [facility] MMR 2002-06-30 Completed [facility] 00:00:00 [facility] IPV 2002-06-30 Completed [facility] 00:00:00 [facility] DTaP, Unspecified 2002-06-30 Completed [facility] Formulation 00:00:00 [facility] MMR 2002-06-30 Completed [facility] 00:00:00 [facility] IPV 2002-06-30 Completed [facility] 00:00:00 [facility] DTaP, Unspecified 2002-06-30 Completed [facility] Formulation 00:00:00 [facility] MMR 2002-06-30 Completed [facility] 00:00:00 [facility] IPV 2002-06-30 Completed [facility] 00:00:00 [facility] DTaP, Unspecified 2002-06-30 Completed [facility] Formulation 00:00:00 [facility] MMR 2002-06-30 Completed [facility] 00:00:00 [facility] IPV 2002-06-30 Completed [facility] 00:00:00 [facility] DTaP, Unspecified 2002-06-30 Completed [facility] Formulation 00:00:00 [facility] MMR 2002-06-30 Completed [facility] 00:00:00 [facility] IPV 2002-06-30 Completed [facility] 00:00:00 [facility] DTaP, Unspecified 2002-06-30 Completed [facility] Formulation 00:00:00 [facility] MMR 2002-06-30 Completed [facility] 00:00:00 [facility] IPV 2002-06-30 Completed [facility] 00:00:00 [facility] DTaP, Unspecified 2002-06-30 Completed [facility] Formulation 00:00:00 [facility] MMR 2002-06-30 Completed [facility] 00:00:00 [facility] IPV 2002-06-30 Completed [facility] 00:00:00 [facility] DTaP, Unspecified 2002-06-30 Completed [facility] Formulation 00:00:00 [facility] MMR 2002-06-30 Completed [facility] 00:00:00 [facility] IPV 2002-06-30 Completed [facility] 00:00:00 [facility] DTaP, Unspecified 2002-06-30 Completed [facility] Formulation 00:00:00 [facility] MMR 2002-06-30 Completed [facility] 00:00:00 [facility] IPV 2002-06-30 Completed [facility] 00:00:00 [facility] DTaP, Unspecified 2002-06-30 Completed [facility] Formulation 00:00:00 [facility] MMR 2002-06-30 Completed [facility] 00:00:00 [facility] IPV 2002-06-30 Completed [facility] 00:00:00 [facility] DTaP, Unspecified 2002-06-30 Completed [facility] Formulation 00:00:00 [facility] MMR 2002-06-30 Completed [facility] 00:00:00 [facility] IPV 2002-06-30 Completed [facility] 00:00:00 [facility] DTaP, Unspecified 2002-06-30 Completed [facility] Formulation 00:00:00 [facility] MMR 2002-06-30 Completed [facility] 00:00:00 [facility] IPV 2002-06-30 Completed [facility] 00:00:00 [facility] DTaP, Unspecified 2002-06-30 Completed [facility] Formulation 00:00:00 [facility] MMR 2002-06-30 Completed [facility] 00:00:00 [facility] IPV 2002-06-30 Completed [facility] 00:00:00 [facility] DTaP, Unspecified 2002-06-30 Completed [facility] Formulation 00:00:00 [facility] MMR 2002-06-30 Completed [facility] 00:00:00 [facility] IPV 2002-06-30 Completed [facility] 00:00:00 [facility] DTaP, Unspecified 2002-06-30 Completed [facility] Formulation 00:00:00 [facility] MMR 2002-06-30 Completed [facility] 00:00:00 [facility] IPV 2002-06-30 Completed [facility] 00:00:00 [facility] DTaP, Unspecified 2002-06-30 Completed [facility] Formulation 00:00:00 [facility] MMR 2002-06-30 Completed [facility] 00:00:00 [facility] IPV 2002-06-30 Completed [facility] 00:00:00 [facility] DTaP, Unspecified 2002-06-30 Completed [facility] Formulation 00:00:00 [facility] MMR 2002-06-30 Completed [facility] 00:00:00 [facility] IPV 2002-06-30 Completed [facility] 00:00:00 [facility] DTaP, Unspecified 2002-06-30 Completed [facility] Formulation 00:00:00 [facility] MMR 2002-06-30 Completed [facility] 00:00:00 [facility] IPV 2002-06-30 Completed [facility] 00:00:00 [facility] DTaP, Unspecified 2002-06-30 Completed [facility] Formulation 00:00:00 [facility] MMR 2002-06-30 Completed [facility] 00:00:00 [facility] IPV 2002-06-30 Completed [facility] 00:00:00 [facility] DTaP, Unspecified 2002-06-30 Completed [facility] Formulation 00:00:00 [facility] MMR 2002-06-30 Completed [facility] 00:00:00 [facility] IPV 2002-06-30 Completed [facility] 00:00:00 [facility] DTaP, Unspecified 2002-06-30 Completed [facility] Formulation 00:00:00 [facility] MMR 2002-06-30 Completed [facility] 00:00:00 [facility] IPV 2002-06-30 Completed [facility] 00:00:00 [facility] DTaP, Unspecified 2002-06-30 Completed [facility] Formulation 00:00:00 [facility] MMR 2002-06-30 Completed [facility] 00:00:00 [facility] IPV 2002-06-30 Completed [facility] 00:00:00 [facility] DTaP, Unspecified 2002-06-30 Completed [facility] Formulation 00:00:00 [facility] MMR 2002-06-30 Completed [facility] 00:00:00 [facility] IPV 2002-06-30 Completed [facility] 00:00:00 [facility] DTaP, Unspecified 2002-06-30 Completed [facility] Formulation 00:00:00 [facility] MMR 2002-06-30 Completed [facility] 00:00:00 [facility] IPV 2002-06-30 Completed [facility] 00:00:00 [facility] DTaP, Unspecified 2002-06-30 Completed [facility] Formulation 00:00:00 [facility] MMR 2002-06-30 Completed [facility] 00:00:00 [facility] IPV 2002-06-30 Completed [facility] 00:00:00 [facility] DTaP, Unspecified 2002-06-30 Completed [facility] Formulation 00:00:00 [facility] MMR 2002-06-30 Completed [facility] 00:00:00 [facility] IPV 2002-06-30 Completed [facility] 00:00:00 [facility] DTaP, Unspecified 2002-06-30 Completed [facility] Formulation 00:00:00 [facility] MMR 2002-06-30 Completed [facility] 00:00:00 [facility] IPV 2002-06-30 Completed [facility] 00:00:00 [facility] DTaP, Unspecified 2002-06-30 Completed [facility] Formulation 00:00:00 [facility] MMR 2002-06-30 Completed [facility] 00:00:00 [facility] IPV 2002-06-30 Completed [facility] 00:00:00 [facility] DTaP, Unspecified 2002-06-30 Completed [facility] Formulation 00:00:00 [facility] MMR 2002-06-30 Completed [facility] 00:00:00 [facility] IPV 2002-06-30 Completed [facility] 00:00:00 [facility] DTaP, Unspecified 2002-06-30 Completed [facility] Formulation 00:00:00 [facility] MMR 2002-06-30 Completed [facility] 00:00:00 [facility] IPV 2002-06-30 Completed [facility] 00:00:00 [facility] DTaP, Unspecified 2002-06-30 Completed [facility] Formulation 00:00:00 [facility] MMR 2002-06-30 Completed [facility] 00:00:00 [facility] IPV 2002-06-30 Completed [facility] 00:00:00 [facility] DTaP, Unspecified 2002-06-30 Completed [facility] Formulation 00:00:00 [facility] MMR 2002-06-30 Completed [facility] 00:00:00 [facility] IPV 2002-06-30 Completed [facility] 00:00:00 [facility] DTaP, Unspecified 2002-06-30 Completed [facility] Formulation 00:00:00 [facility] MMR 2002-06-30 Completed [facility] 00:00:00 [facility] IPV 2002-06-30 Completed [facility] 00:00:00 [facility] DTaP, Unspecified 2002-06-30 Completed [facility] Formulation 00:00:00 [facility] MMR 2002-06-30 Completed [facility] 00:00:00 [facility] IPV 2002-06-30 Completed [facility] 00:00:00 [facility] DTaP, Unspecified 2002-06-30 Completed [facility] Formulation 00:00:00 [facility] MMR 2002-06-30 Completed [facility] 00:00:00 [facility] IPV 2002-06-30 Completed [facility] 00:00:00 [facility] DTaP, Unspecified 2002-06-30 Completed [facility] Formulation 00:00:00 [facility] MMR 2002-06-30 Completed [facility] 00:00:00 [facility] IPV 2002-06-30 Completed [facility] 00:00:00 [facility] DTaP, Unspecified 2002-06-30 Completed [facility] Formulation 00:00:00 [facility] MMR 2002-06-30 Completed [facility] 00:00:00 [facility] IPV 2002-06-30 Completed [facility] 00:00:00 [facility] DTaP, Unspecified 2000-03-24 Completed [facility] Formulation 00:00:00 [facility] HIB 4 Dose Schedule 2000-03-24 Completed Unive rsity of 00:00:00 [facility] Pneumococcal 7 2000-03-24 Completed [facility] of Conjugate, PCV7 00:00:00 [place] [facility] (Prevnar7) [facility] IPV 2000-03-24 Completed [facility] 00:00:00 [facility] DTaP, Unspecified 2000-03-24 Completed [facility] Formulation 00:00:00 [facility] HIB 4 Dose Schedule 2000-03-24 Completed [facility]ive rsity of 00:00:00 [facility] Pneumococcal 7 2000-03-24 Completed [facility] Conjugate, PCV7 00:00:00 [place] [facility] (Prevnar7[facility] IPV 2000-03-24 Completed [facility] 00:00:00 [facility] DTaP, Unspecified 2000-03-24 Completed [facility] Formulation 00:00:00 [facility] HIB 4 Dose Schedule 2000-03-24 Completed Unive rsity of 00:00:00 [facility] Pneumococcal 7 2000-03-24 Completed [facility] Conjugate, PCV7 00:00:00 [place] [facility] (Prevnar7[facility] IPV 2000-03-24 Completed [facility] 00:00:00 [facility] DTaP, Unspecified 2000-03-24 Completed [facility] Formulation 00:00:00 [facility] HIB 4 Dose Schedule 2000-03-24 Completed Unive rsity of 00:00:00 [facility] Pneumococcal 7 2000-03-24 Completed [facility] Conjugate, PCV7 00:00:00 [place] [facility] (Prevnar7[facility] IPV 2000-03-24 Completed [facility] 00:00:00 [facility] DTaP, Unspecified 2000-03-24 Completed [facility] Formulation 00:00:00 [facility] HIB 4 Dose Schedule 2000-03-24 Completed Unive rsity of 00:00:00 [facility] Pneumococcal 7 2000-03-24 Completed [facility] Conjugate, PCV7 00:00:00 [place] [facility] (Prevnar7[facility] IPV 2000-03-24 Completed [facility] 00:00:00 [facility] DTaP, Unspecified 2000-03-24 Completed [facility] Formulation 00:00:00 [facility] HIB 4 Dose Schedule 2000-03-24 Completed Unive rsity of 00:00:00 [facility] Pneumococcal 7 2000-03-24 Completed [facility] Conjugate, PCV7 00:00:00 [place] [facility] (Prevnar7[facility] IPV 2000-03-24 Completed [facility] 00:00:00 [facility] DTaP, Unspecified 2000-03-24 Completed [facility] Formulation 00:00:00 [facility] HIB 4 Dose Schedule 2000-03-24 Completed Unive rsity of 00:00:00 [facility] Pneumococcal 7 2000-03-24 Completed [facility] Conjugate, PCV7 00:00:00 [place] [facility] (Prevnar7[facility] IPV 2000-03-24 Completed [facility] 00:00:00 [facility] DTaP, Unspecified 2000-03-24 Completed [facility] Formulation 00:00:00 [facility] HIB 4 Dose Schedule 2000-03-24 Completed Unive rsity of 00:00:00 [facility] Pneumococcal 7 2000-03-24 Completed [facility] Conjugate, PCV7 00:00:00 [place] [facility] (Prevnar7[facility] IPV 2000-03-24 Completed [facility] 00:00:00 [facility] DTaP, Unspecified 2000-03-24 Completed [facility] Formulation 00:00:00 [facility] HIB 4 Dose Schedule 2000-03-24 Completed Unive rsity of 00:00:00 [facility] Pneumococcal 7 2000-03-24 Completed [facility] Conjugate, PCV7 00:00:00 [place] [facility] (Prevnar7) [facility] IPV 2000-03-24 Completed [facility] 00:00:00 [facility] DTaP, Unspecified 2000-03-24 Completed [facility] Formulation 00:00:00 [facility] HIB 4 Dose Schedule 2000-03-24 Completed Unive rsity of 00:00:00 [facility] Pneumococcal 7 2000-03-24 Completed [facility] Conjugate, PCV7 00:00:00 [place] [facility] (Prevnar7[facility] IPV 2000-03-24 Completed [facility] 00:00:00 [facility] DTaP, Unspecified 2000-03-24 Completed [facility] Formulation 00:00:00 [facility] HIB 4 Dose Schedule 2000-03-24 Completed Unive rsity of 00:00:00 [facility] Pneumococcal 7 2000-03-24 Completed [facility] Conjugate, PCV7 00:00:00 [place] [facility] (Prevnar7[facility] IPV 2000-03-24 Completed [facility] 00:00:00 [facility] DTaP, Unspecified 2000-03-24 Completed [facility] Formulation 00:00:00 [facility] HIB 4 Dose Schedule 2000-03-24 Completed Unive rsity of 00:00:00 [facility] Pneumococcal 7 2000-03-24 Completed [facility] Conjugate, PCV7 00:00:00 [place] [facility] (Prevnar7[facility] IPV 2000-03-24 Completed [facility] 00:00:00 [facility] DTaP, Unspecified 2000-03-24 Completed [facility] Formulation 00:00:00 [facility] HIB 4 Dose Schedule 2000-03-24 Completed Unive rsity of 00:00:00 [facility] Pneumococcal 7 2000-03-24 Completed [facility] Conjugate, PCV7 00:00:00 [place] [facility] (Prevnar7[facility] IPV 2000-03-24 Completed [facility] 00:00:00 [facility] DTaP, Unspecified 2000-03-24 Completed [facility] Formulation 00:00:00 [facility] HIB 4 Dose Schedule 2000-03-24 Completed Unive rsity of 00:00:00 [facility] Pneumococcal 7 2000-03-24 Completed [facility] Conjugate, PCV7 00:00:00 [place] [facility] (Prevnar7[facility] IPV 2000-03-24 Completed [facility] 00:00:00 [facility] DTaP, Unspecified 2000-03-24 Completed [facility] Formulation 00:00:00 [facility] HIB 4 Dose Schedule 2000-03-24 Completed Unive rsity of 00:00:00 [facility] Pneumococcal 7 2000-03-24 Completed [facility] Conjugate, PCV7 00:00:00 [place] [facility] (Prevnar7) [facility] IPV 2000-03-24 Completed [facility] 00:00:00 [facility] DTaP, Unspecified 2000-03-24 Completed [facility] Formulation 00:00:00 [facility] HIB 4 Dose Schedule 2000-03-24 Completed [facility]ive rsity of 00:00:00 [facility] Pneumococcal 7 2000-03-24 Completed [facility] Conjugate, PCV7 00:00:00 [place] [facility] (Prevnar7[facility] IPV 2000-03-24 Completed [facility] 00:00:00 [facility] DTaP, Unspecified 2000-03-24 Completed [facility] Formulation 00:00:00 [facility] HIB 4 Dose Schedule 2000-03-24 Completed [facility]ive rsity of 00:00:00 [facility] Pneumococcal 7 2000-03-24 Completed [facility] Conjugate, PCV7 00:00:00 [place] [facility] (Prevnar7[facility] IPV 2000-03-24 Completed [facility] 00:00:00 [facility] DTaP, Unspecified 2000-03-24 Completed [facility] Formulation 00:00:00 [facility] HIB 4 Dose Schedule 2000-03-24 Completed [facility]ive rsity of 00:00:00 [facility] Pneumococcal 7 2000-03-24 Completed [facility] Conjugate, PCV7 00:00:00 [place] [facility] (Prevnar7[facility] IPV 2000-03-24 Completed [facility] 00:00:00 [facility] DTaP, Unspecified 2000-03-24 Completed [facility] Formulation 00:00:00 [facility] HIB 4 Dose Schedule 2000-03-24 Completed [facility]ive rsity of 00:00:00 [facility] Pneumococcal 7 2000-03-24 Completed [facility] Conjugate, PCV7 00:00:00 [place] [facility] (Prevnar7[facility] IPV 2000-03-24 Completed [facility] 00:00:00 [facility] DTaP, Unspecified 2000-03-24 Completed [facility] Formulation 00:00:00 [facility] HIB 4 Dose Schedule 2000-03-24 Completed [facility]ive rsity of 00:00:00 [facility] Pneumococcal 7 2000-03-24 Completed [facility] Conjugate, PCV7 00:00:00 [place] [facility] (Prevnar7[facility] IPV 2000-03-24 Completed [facility] 00:00:00 [facility] DTaP, Unspecified 2000-03-24 Completed [facility] of Formulation 00:00:00 [facility] HIB 4 Dose Schedule 2000-03-24 Completed Unive rsity of 00:00:00 [facility] Pneumococcal 7 2000-03-24 Completed [facility] Conjugate, PCV7 00:00:00 [place] [facility] (Prevnar7[facility] IPV 2000-03-24 Completed [facility] 00:00:00 [facility] DTaP, Unspecified 2000-03-24 Completed [facility] Formulation 00:00:00 [facility] HIB 4 Dose Schedule 2000-03-24 Completed Unive rsity of 00:00:00 [facility] Pneumococcal 7 2000-03-24 Completed [facility] Conjugate, PCV7 00:00:00 [place] [facility] (Prevnar7[facility] IPV 2000-03-24 Completed [facility] 00:00:00 [facility] DTaP, Unspecified 2000-03-24 Completed [facility] Formulation 00:00:00 [facility] HIB 4 Dose Schedule 2000-03-24 Completed [facility]ive rsity of 00:00:00 [facility] Pneumococcal 7 2000-03-24 Completed [facility] Conjugate, PCV7 00:00:00 [place] [facility] (Prevnar7[facility] IPV 2000-03-24 Completed [facility] 00:00:00 [facility] DTaP, Unspecified 2000-03-24 Completed [facility] Formulation 00:00:00 [facility] HIB 4 Dose Schedule 2000-03-24 Completed Unive rsity of 00:00:00 [facility] Pneumococcal 7 2000-03-24 Completed [facility] Conjugate, PCV7 00:00:00 [place] [facility] (Prevnar7[facility] IPV 2000-03-24 Completed [facility] 00:00:00 [facility] DTaP, Unspecified 2000-03-24 Completed [facility] Formulation 00:00:00 [facility] HIB 4 Dose Schedule 2000-03-24 Completed [facility]ive rsity of 00:00:00 [facility] Pneumococcal 7 2000-03-24 Completed [facility] Conjugate, PCV7 00:00:00 [place] [facility] (Prevnar7[facility] IPV 2000-03-24 Completed [facility] 00:00:00 [facility] DTaP, Unspecified 2000-03-24 Completed [facility] Formulation 00:00:00 [facility] HIB 4 Dose Schedule 2000-03-24 Completed [facility]ive rsity of 00:00:00 [facility] Pneumococcal 7 2000-03-24 Completed [facility] Conjugate, PCV7 00:00:00 [place] [facility] (Prevnar7[facility] IPV 2000-03-24 Completed [facility] 00:00:00 [facility] DTaP, Unspecified 2000-03-24 Completed [facility] Formulation 00:00:00 [facility] HIB 4 Dose Schedule 2000-03-24 Completed [facility]ive rsity of 00:00:00 [facility] Pneumococcal 7 2000-03-24 Completed [facility] Conjugate, PCV7 00:00:00 [place] [facility] (Prevnar7[facility] IPV 2000-03-24 Completed [facility] 00:00:00 [facility] DTaP, Unspecified 2000-03-24 Completed [facility] Formulation 00:00:00 [facility] HIB 4 Dose Schedule 2000-03-24 Completed [facility]ive rsity of 00:00:00 [facility] Pneumococcal 7 2000-03-24 Completed [facility] Conjugate, PCV7 00:00:00 [place] [facility] (Prevnar7[facility] IPV 2000-03-24 Completed [facility] 00:00:00 [facility] DTaP, Unspecified 2000-03-24 Completed [facility] Formulation 00:00:00 [facility] HIB 4 Dose Schedule 2000-03-24 Completed [facility]ive rsity of 00:00:00 [facility] Pneumococcal 7 2000-03-24 Completed [facility] Conjugate, PCV7 00:00:00 [place] [facility] (Prevnar7[facility] IPV 2000-03-24 Completed [facility] 00:00:00 [facility] DTaP, Unspecified 2000-03-24 Completed [facility] Formulation 00:00:00 [facility] HIB 4 Dose Schedule 2000-03-24 Completed [facility] rs[facility] of 00:00:00 [facility] Pneumococcal 7 2000-03-24 Completed [facility] Conjugate, PCV7 00:00:00 [place] [facility] (Prevnar7[facility] IPV 2000-03-24 Completed [facility] 00:00:00 [facility] DTaP, Unspecified 2000-03-24 Completed [facility] Formulation 00:00:00 [facility] HIB 4 Dose Schedule 2000-03-24 Completed [facility] rsity of 00:00:00 [facility] Pneumococcal 7 2000-03-24 Completed [facility] Conjugate, PCV7 00:00:00 [place] [facility] (Prevnar7[facility] IPV 2000-03-24 Completed [facility] 00:00:00 [facility] DTaP, Unspecified 2000-03-24 Completed [facility] Formulation 00:00:00 [facility] HIB 4 Dose Schedule 2000-03-24 Completed [facility] rsity of 00:00:00 [facility] Pneumococcal 7 2000-03-24 Completed [facility] Conjugate, PCV7 00:00:00 [place] [facility] (Prevnar7[facility] IPV 2000-03-24 Completed [facility] 00:00:00 [facility] DTaP, Unspecified 2000-03-24 Completed [facility] Formulation 00:00:00 [facility] HIB 4 Dose Schedule 2000-03-24 Completed [facility] rsity of 00:00:00 [facility] Pneumococcal 7 2000-03-24 Completed [facility] Conjugate, PCV7 00:00:00 [place] [facility] (Prevnar7[facility] IPV 2000-03-24 Completed [facility] 00:00:00 [facility] DTaP, Unspecified 2000-03-24 Completed [facility] Formulation 00:00:00 [facility] HIB 4 Dose Schedule 2000-03-24 Completed [facility] rs[facility] of 00:00:00 [facility] Pneumococcal 7 2000-03-24 Completed [facility] Conjugate, PCV7 00:00:00 [place] [facility] (Prevnar7[facility] IPV 2000-03-24 Completed [facility] 00:00:00 [facility] DTaP, Unspecified 2000-03-24 Completed [facility] Formulation 00:00:00 [facility] HIB 4 Dose Schedule 2000-03-24 Completed [facility] rsity of 00:00:00 [facility] Pneumococcal 7 2000-03-24 Completed [facility] Conjugate, PCV7 00:00:00 [place] [facility] (Prevnar7[facility] IPV 2000-03-24 Completed [facility] 00:00:00 [facility] DTaP, Unspecified 2000-03-24 Completed [facility] Formulation 00:00:00 [facility] HIB 4 Dose Schedule 2000-03-24 Completed [facility] rs[facility] of 00:00:00 [facility] Pneumococcal 7 2000-03-24 Completed [facility] Conjugate, PCV7 00:00:00 [place] [facility] (Prevnar7[facility] IPV 2000-03-24 Completed [facility] 00:00:00 [facility] DTaP, Unspecified 2000-03-24 Completed [facility] Formulation 00:00:00 [facility] HIB 4 Dose Schedule 2000-03-24 Completed [facility] rs[facility] of 00:00:00 [facility] Pneumococcal 7 2000-03-24 Completed [facility] Conjugate, PCV7 00:00:00 [place] [facility] (Prevnar7[facility] IPV 2000-03-24 Completed [facility] 00:00:00 [facility] DTaP, Unspecified 2000-03-24 Completed [facility] Formulation 00:00:00 [facility] HIB 4 Dose Schedule 2000-03-24 Completed [facility] rs[facility] of 00:00:00 [facility] Pneumococcal 7 2000-03-24 Completed [facility] Conjugate, PCV7 00:00:00 [place] [facility] (Prevnar7[facility] IPV 2000-03-24 Completed [facility] 00:00:00 [facility] DTaP, Unspecified 2000-03-24 Completed [facility] Formulation 00:00:00 [facility] HIB 4 Dose Schedule 2000-03-24 Completed [facility] rs[facility] of 00:00:00 [facility] Pneumococcal 7 2000-03-24 Completed [facility] Conjugate, PCV7 00:00:00 [place] [facility] (Prevnar7[facility] IPV 2000-03-24 Completed [facility] 00:00:00 [facility] Varicella 1999-03-11 Completed [facility] of (varivax)(chicken 00:00:00 [place] [facility] pox) [facility] Hep B, Adol or Pedi 1999-03-11 Completed Unive rsity of Dosage 00:00:00 [facility] MMR 1999-03-11 Completed [facility] 00:00:00 [facility] Varicella 1999-03-11 Completed [facility] (varivax)(chicken 00:00:00 [place] [facility] pox) [facility] Hep B, Adol or Pedi 1999-03-11 Completed [facility]ive rsity of Dosage 00:00:00 [facility] MMR 1999-03-11 Completed [facility] 00:00:00 [facility] Varicella 1999-03-11 Completed [facility] (varivax)(chicken 00:00:00 [place] [facility] pox) [facility] Hep B, Adol or Pedi 1999-03-11 Completed Unive rsity of Dosage 00:00:00 [facility] MMR 1999-03-11 Completed [facility] 00:00:00 [facility] Varicella 1999-03-11 Completed [facility] (varivax)(chicken 00:00:00 [place] [facility] Hep B, Adol or Pedi 1999-03-11 Completed [facility] Dosage 00:00:00 [facility] MMR 1999-03-11 Completed [facility] 00:00:00 [facility] Varicella 1999-03-11 Completed [facility] (varivax)(chicken 00:00:00 [place] [facility] Hep B, Adol or Pedi 1999-03-11 Completed [facility] Dosage 00:00:00 [facility] MMR 1999-03-11 Completed [facility] 00:00:00 [facility] Varicella 1999-03-11 Completed [facility] (varivax)(chicken 00:00:00 [place] [facility] Hep B, Adol or Pedi 1999-03-11 Completed [facility] Dosage 00:00:00 [facility] MMR 1999-03-11 Completed [facility] 00:00:00 [facility] Varicella 1999-03-11 Completed [facility] (varivax)(chicken 00:00:00 [place] [facility] Hep B, Adol or Pedi 1999-03-11 Completed [facility] Dosage 00:00:00 [facility] MMR 1999-03-11 Completed [facility] 00:00:00 [facility] Varicella 1999-03-11 Completed [facility] (varivax)(chicken 00:00:00 [place] [facility] Hep B, Adol or Pedi 1999-03-11 Completed [facility] Dosage 00:00:00 [facility] MMR 1999-03-11 Completed [facility] 00:00:00 [facility] Varicella 1999-03-11 Completed [facility] (varivax)(chicken 00:00:00 [place] [facility] Hep B, Adol or Pedi 1999-03-11 Completed [facility] Dosage 00:00:00 [facility] MMR 1999-03-11 Completed [facility] 00:00:00 [facility] Varicella 1999-03-11 Completed [facility] (varivax)(chicken 00:00:00 [place] [facility] Hep B, Adol or Pedi 1999-03-11 Completed [facility] Dosage 00:00:00 [facility] MMR 1999-03-11 Completed [facility] 00:00:00 [facility] Varicella 1999-03-11 Completed [facility] (varivax)(chicken 00:00:00 [place] [facility] Hep B, Adol or Pedi 1999-03-11 Completed [facility] Dosage 00:00:00 [facility] MMR 1999-03-11 Completed [facility] 00:00:00 [facility] Varicella 1999-03-11 Completed [facility] (varivax)(chicken 00:00:00 [place] [facility] Hep B, Adol or Pedi 1999-03-11 Completed [facility] Dosage 00:00:00 [facility] MMR 1999-03-11 Completed [facility] 00:00:00 [facility] Varicella 1999-03-11 Completed [facility] (varivax)(chicken 00:00:00 [place] [facility] Hep B, Adol or Pedi 1999-03-11 Completed [facility] Dosage 00:00:00 [facility] MMR 1999-03-11 Completed [facility] 00:00:00 [facility] Varicella 1999-03-11 Completed [facility] (varivax)(chicken 00:00:00 [place] [facility] Hep B, Adol or Pedi 1999-03-11 Completed [facility] Dosage 00:00:00 [facility] MMR 1999-03-11 Completed [facility] 00:00:00 [facility] Varicella 1999-03-11 Completed [facility] (varivax)(chicken 00:00:00 [place] [facility] Hep B, Adol or Pedi 1999-03-11 Completed [facility] Dosage 00:00:00 [facility] MMR 1999-03-11 Completed [facility] 00:00:00 [facility] Varicella 1999-03-11 Completed [facility] (varivax)(chicken 00:00:00 [place] [facility] Hep B, Adol or Pedi 1999-03-11 Completed [facility] Dosage 00:00:00 [facility] MMR 1999-03-11 Completed [facility] 00:00:00 [facility] Varicella 1999-03-11 Completed [facility] (varivax)(chicken 00:00:00 [place] [facility] Hep B, Adol or Pedi 1999-03-11 Completed [facility] Dosage 00:00:00 [facility] MMR 1999-03-11 Completed [facility] 00:00:00 [facility] Varicella 1999-03-11 Completed [facility] (varivax)(chicken 00:00:00 [place] [facility] Hep B, Adol or Pedi 1999-03-11 Completed [facility] Dosage 00:00:00 [facility] MMR 1999-03-11 Completed [facility] 00:00:00 [facility] Varicella 1999-03-11 Completed [facility] (varivax)(chicken 00:00:00 [place] [facility] Hep B, Adol or Pedi 1999-03-11 Completed [facility] Dosage 00:00:00 [facility] MMR 1999-03-11 Completed [facility] 00:00:00 [facility] Varicella 1999-03-11 Completed [facility] (varivax)(chicken 00:00:00 [place] [facility] Hep B, Adol or Pedi 1999-03-11 Completed [facility] Dosage 00:00:00 [facility] MMR 1999-03-11 Completed [facility] 00:00:00 [facility] Varicella 1999-03-11 Completed [facility] (varivax)(chicken 00:00:00 [place] [facility] Hep B, Adol or Pedi 1999-03-11 Completed [facility] Dosage 00:00:00 [facility] MMR 1999-03-11 Completed [facility] 00:00:00 [facility] Varicella 1999-03-11 Completed [facility] (varivax)(chicken 00:00:00 [place] [facility] Hep B, Adol or Pedi 1999-03-11 Completed [facility] Dosage 00:00:00 [facility] MMR 1999-03-11 Completed [facility] 00:00:00 [facility] Varicella 1999-03-11 Completed [facility] (varivax)(chicken 00:00:00 [place] [facility] Hep B, Adol or Pedi 1999-03-11 Completed [facility] Dosage 00:00:00 [facility] MMR 1999-03-11 Completed [facility] 00:00:00 [facility] Varicella 1999-03-11 Completed [facility] (varivax)(chicken 00:00:00 [place] [facility] Hep B, Adol or Pedi 1999-03-11 Completed [facility] Dosage 00:00:00 [facility] MMR 1999-03-11 Completed [facility] 00:00:00 [facility] Varicella 1999-03-11 Completed [facility] (varivax)(chicken 00:00:00 [place] [facility] Hep B, Adol or Pedi 1999-03-11 Completed [facility] Dosage 00:00:00 [facility] MMR 1999-03-11 Completed [facility] 00:00:00 [facility] Varicella 1999-03-11 Completed [facility] (varivax)(chicken 00:00:00 [place] [facility] Hep B, Adol or Pedi 1999-03-11 Completed [facility] Dosage 00:00:00 [facility] MMR 1999-03-11 Completed [facility] 00:00:00 [facility] Varicella 1999-03-11 Completed [facility] (varivax)(chicken 00:00:00 [place] [facility] Hep B, Adol or Pedi 1999-03-11 Completed [facility] Dosage 00:00:00 [facility] MMR 1999-03-11 Completed [facility] 00:00:00 [facility] Varicella 1999-03-11 Completed [facility] (varivax)(chicken 00:00:00 [place] [facility] Hep B, Adol or Pedi 1999-03-11 Completed [facility] Dosage 00:00:00 [facility] MMR 1999-03-11 Completed [facility] 00:00:00 [facility] Varicella 1999-03-11 Completed [facility] (varivax)(chicken 00:00:00 [place] [facility] Hep B, Adol or Pedi 1999-03-11 Completed [facility] Dosage 00:00:00 [facility] MMR 1999-03-11 Completed [facility] 00:00:00 [facility] Varicella 1999-03-11 Completed [facility] (varivax)(chicken 00:00:00 [place] [facility] Hep B, Adol or Pedi 1999-03-11 Completed [facility] Dosage 00:00:00 [facility] MMR 1999-03-11 Completed [facility] 00:00:00 [facility] Varicella 1999-03-11 Completed [facility] (varivax)(chicken 00:00:00 [place] [facility] Hep B, Adol or Pedi 1999-03-11 Completed [facility] Dosage 00:00:00 [facility] MMR 1999-03-11 Completed [facility] 00:00:00 [facility] Varicella 1999-03-11 Completed [facility] (varivax)(chicken 00:00:00 [place] [facility] Hep B, Adol or Pedi 1999-03-11 Completed [facility] Dosage 00:00:00 [facility] MMR 1999-03-11 Completed [facility] 00:00:00 [facility] Varicella 1999-03-11 Completed [facility] (varivax)(chicken 00:00:00 [place] [facility] Hep B, Adol or Pedi 1999-03-11 Completed [facility] Dosage 00:00:00 [facility] MMR 1999-03-11 Completed [facility] 00:00:00 [facility] Varicella 1999-03-11 Completed [facility] (varivax)(chicken 00:00:00 [place] [facility] Hep B, Adol or Pedi 1999-03-11 Completed [facility] Dosage 00:00:00 [facility] MMR 1999-03-11 Completed [facility] 00:00:00 [facility] Varicella 1999-03-11 Completed [facility] (varivax)(chicken 00:00:00 [place] [facility] Hep B, Adol or Pedi 1999-03-11 Completed [facility] Dosage 00:00:00 [facility] MMR 1999-03-11 Completed [facility] 00:00:00 [facility] Varicella 1999-03-11 Completed [facility] (varivax)(chicken 00:00:00 [place] [facility] Hep B, Adol or Pedi 1999-03-11 Completed [facility] Dosage 00:00:00 [facility] MMR 1999-03-11 Completed [facility] 00:00:00 [facility] Varicella 1999-03-11 Completed [facility] (varivax)(chicken 00:00:00 [place] [facility] Hep B, Adol or Pedi 1999-03-11 Completed [facility] Dosage 00:00:00 [facility] MMR 1999-03-11 Completed [facility] 00:00:00 [facility] Varicella 1999-03-11 Completed [facility] (varivax)(chicken 00:00:00 [place] [facility] Hep B, Adol or Pedi 1999-03-11 Completed [facility] Dosage 00:00:00 [facility] MMR 1999-03-11 Completed [facility] 00:00:00 [facility] Varicella 1999-03-11 Completed [facility] (varivax)(chicken 00:00:00 [place] [facility] Hep B, Adol or Pedi 1999-03-11 Completed [facility] Dosage 00:00:00 [facility] MMR 1999-03-11 Completed [facility] 00:00:00 [facility] HIB 4 Dose Schedule 1999-01-10 Completed [facility] of 00:00:00 [facility] HIB 4 Dose Schedule 1999-01-10 Completed [facility] of 00:00:00 [facility] HIB 4 Dose Schedule 1999-01-10 Completed [facility] of 00:00:00 [facility] HIB 4 Dose Schedule 1999-01-10 Completed [facility] of 00:00:00 [facility] HIB 4 Dose Schedule 1999-01-10 Completed [facility] of 00:00:00 [facility] HIB 4 Dose Schedule 1999-01-10 Completed [facility] of 00:00:00 [facility] HIB 4 Dose Schedule 1999-01-10 Completed [facility] of 00:00:00 [facility] HIB 4 Dose Schedule 1999-01-10 Completed [facility] of 00:00:00 [facility] HIB 4 Dose Schedule 1999-01-10 Completed [facility] of 00:00:00 [facility] HIB 4 Dose Schedule 1999-01-10 Completed [facility] of 00:00:00 [facility] HIB 4 Dose Schedule 1999-01-10 Completed [facility] of 00:00:00 [facility] HIB 4 Dose Schedule 1999-01-10 Completed [facility] of 00:00:00 [facility] HIB 4 Dose Schedule 1999-01-10 Completed Unive [...] Schedule 1999-01-10 Completed [facility] of 00:00:00 [facility] HIB 4 Dose Schedule 1999-01-10 Completed [facility] of 00:00:00 [facility] HIB 4 Dose Schedule 1999-01-10 Completed [facility] of 00:00:00 [facility] HIB 4 Dose Schedule 1999-01-10 Completed [facility] of 00:00:00 [facility] HIB 4 Dose Schedule 1999-01-10 Completed [facility] of 00:00:00 [facility] DTaP, Unspecified 1998 Completed Univers [facility] of Formulation 00:00:00 [facility] HIB 4 Dose Schedule 1998 Completed [facility] of 00:00:00 [facility] DTaP, Unspecified 1998 Completed [facility] Formulation 00:00:00 [facility] HIB 4 Dose Schedule 1998 Completed [facility] of 00:00:00 [facility] DTaP, Unspecified 1998 Completed [facility] Formulation 00:00:00 [facility] HIB 4 Dose Schedule 1998 Completed [facility] of 00:00:00 [facility] DTaP, Unspecified 1998 Completed [facility] Formulation 00:00:00 [facility] HIB 4 Dose Schedule 1998 Completed [facility] of 00:00:00 [facility] DTaP, Unspecified 1998 Completed [facility] Formulation 00:00:00 [facility] HIB 4 Dose Schedule 1998 Completed [facility] of 00:00:00 [facility] DTaP, Unspecified 1998 Completed [facility] Formulation 00:00:00 [facility] HIB 4 Dose Schedule 1998 Completed [facility] of 00:00:00 [facility] DTaP, Unspecified 1998 Completed [facility] Formulation 00:00:00 [facility] HIB 4 Dose Schedule 1998 Completed [facility] of 00:00:00 [facility] DTaP, Unspecified 1998 Completed [facility] Formulation 00:00:00 [facility] HIB 4 Dose Schedule 1998 Completed [facility] of 00:00:00 [facility] DTaP, Unspecified 1998 Completed [facility] Formulation 00:00:00 [facility] HIB 4 Dose Schedule 1998 Completed [facility] of 00:00:00 [facility] DTaP, Unspecified 1998 Completed [facility] Formulation 00:00:00 [facility] HIB 4 Dose Schedule 1998 Completed [facility] of 00:00:00 [facility] DTaP, Unspecified 1998 Completed [facility] Formulation 00:00:00 [facility] HIB 4 Dose Schedule 1998 Completed [facility] of 00:00:00 [facility] DTaP, Unspecified 1998 Completed [facility] Formulation 00:00:00 [facility] HIB 4 Dose Schedule 1998 Completed [facility] of 00:00:00 [facility] DTaP, Unspecified 1998 Completed [facility] Formulation 00:00:00 [facility] HIB 4 Dose Schedule 1998 Completed [facility] of 00:00:00 [facility] DTaP, Unspecified 1998 Completed [facility] Formulation 00:00:00 [facility] HIB 4 Dose Schedule 1998 Completed [facility] of 00:00:00 [facility] DTaP, Unspecified 1998 Completed [facility] Formulation 00:00:00 [facility] HIB 4 Dose Schedule 1998 Completed [facility] of 00:00:00 [facility] DTaP, Unspecified 1998 Completed [facility] Formulation 00:00:00 [facility] HIB 4 Dose Schedule 1998 Completed [facility] of 00:00:00 [facility] DTaP, Unspecified 1998 Completed [facility] Formulation 00:00:00 [facility] HIB 4 Dose Schedule 1998 Completed [facility] of 00:00:00 [facility] DTaP, Unspecified 1998 Completed [facility] Formulation 00:00:00 [facility] HIB 4 Dose Schedule 1998 Completed [facility] 00:00:00 [facility] DTaP, Unspecified 1998 Completed [facility] Formulation 00:00:00 [facility] HIB 4 Dose Schedule 1998 Completed [facility] 00:00:00 [facility] DTaP, Unspecified 1998 Completed [facility] Formulation 00:00:00 [facility] HIB 4 Dose Schedule 1998 Completed [facility] of 00:00:00 [facility] DTaP, Unspecified 1998 Completed [facility] Formulation 00:00:00 [facility] HIB 4 Dose Schedule 1998 Completed [facility] of 00:00:00 [facility] DTaP, Unspecified 1998 Completed [facility] Formulation 00:00:00 [facility] HIB 4 Dose Schedule 1998 Completed [facility] of 00:00:00 [facility] DTaP, Unspecified 1998 Completed [facility] Formulation 00:00:00 [facility] HIB 4 Dose Schedule 1998 Completed [facility] of 00:00:00 [facility] DTaP, Unspecified 1998 Completed [facility] Formulation 00:00:00 [facility] HIB 4 Dose Schedule 1998 Completed [facility] of 00:00:00 [facility] DTaP, Unspecified 1998 Completed [facility] Formulation 00:00:00 [facility] HIB 4 Dose Schedule 1998 Completed [facility] 00:00:00 [facility] DTaP, Unspecified 1998 Completed [facility] Formulation 00:00:00 [facility] HIB 4 Dose Schedule 1998 Completed [facility] 00:00:00 [facility] DTaP, Unspecified 1998 Completed [facility] Formulation 00:00:00 [facility] HIB 4 Dose Schedule 1998 Completed [facility] of 00:00:00 [facility] DTaP, Unspecified 1998 Completed [facility] Formulation 00:00:00 [facility] HIB 4 Dose Schedule 1998 Completed [facility] of 00:00:00 [facility] DTaP, Unspecified 1998 Completed [facility] Formulation 00:00:00 [facility] HIB 4 Dose Schedule 1998 Completed [facility] of 00:00:00 [facility] DTaP, Unspecified 1998 Completed [facility] Formulation 00:00:00 [facility] HIB 4 Dose Schedule 1998 Completed [facility] 00:00:00 [facility] DTaP, Unspecified 1998 Completed [facility] Formulation 00:00:00 [facility] HIB 4 Dose Schedule 1998 Completed [facility] 00:00:00 [facility] DTaP, Unspecified 1998 Completed [facility] Formulation 00:00:00 [facility] HIB 4 Dose Schedule 1998 Completed [facility] 00:00:00 [facility] DTaP, Unspecified 1998 Completed [facility] Formulation 00:00:00 [facility] HIB 4 Dose Schedule 1998 Completed [facility] 00:00:00 [facility] DTaP, Unspecified 1998 Completed [facility] Formulation 00:00:00 [facility] HIB 4 Dose Schedule 1998 Completed [facility] of 00:00:00 [facility] DTaP, Unspecified 1998 Completed [facility] Formulation 00:00:00 [facility] HIB 4 Dose Schedule 1998 Completed [facility] 00:00:00 [facility] DTaP, Unspecified 1998 Completed [facility] Formulation 00:00:00 [facility] HIB 4 Dose Schedule 1998 Completed [facility] 00:00:00 [facility] DTaP, Unspecified 1998 Completed [facility] Formulation 00:00:00 [facility] HIB 4 Dose Schedule 1998 Completed [facility] 00:00:00 [facility] DTaP, Unspecified 1998 Completed [facility] Formulation 00:00:00 [facility] HIB 4 Dose Schedule 1998 Completed [facility] 00:00:00 [facility] DTaP, Unspecified 1998 Completed [facility] Formulation 00:00:00 [facility] HIB 4 Dose Schedule 1998 Completed [facility] 00:00:00 [facility] DTaP, Unspecified 1998 Completed [facility] Formulation 00:00:00 [facility] Hep B, Adol or Pedi 1998 Completed [facility] of Dosage 00:00:00 [facility] HIB 4 Dose Schedule 1998 Completed [facility] 00:00:00 [facility] IPV 1998 Completed [facility] 00:00:00 [facility] DTaP, Unspecified 1998 Completed [facility] Formulation 00:00:00 [facility] Hep B, Adol or Pedi 1998 Completed [facility] of Dosage 00:00:00 [facility] HIB 4 Dose Schedule 1998 Completed [facility] 00:00:00 [facility] IPV 1998 Completed [facility] 00:00:00 [facility] DTaP, Unspecified 1998 Completed [facility] Formulation 00:00:00 [facility] Hep B, Adol or Pedi 1998 Completed [facility] of Dosage 00:00:00 [facility] HIB 4 Dose Schedule 1998 Completed [facility] 00:00:00 [facility] IPV 1998 Completed [facility] 00:00:00 [facility] DTaP, Unspecified 1998 Completed [facility] Formulation 00:00:00 [facility] Hep B, Adol or Pedi 1998 Completed [facility] of Dosage 00:00:00 [facility] HIB 4 Dose Schedule 1998 Completed [facility] 00:00:00 [facility] IPV 1998 Completed [facility] 00:00:00 [facility] DTaP, Unspecified 1998 Completed [facility] Formulation 00:00:00 [facility] Hep B, Adol or Pedi 1998 Completed [facility] of Dosage 00:00:00 [facility] HIB 4 Dose Schedule 1998 Completed [facility] 00:00:00 [facility] IPV 1998 Completed [facility] 00:00:00 [facility] DTaP, Unspecified 1998 Completed [facility] Formulation 00:00:00 [facility] Hep B, Adol or Pedi 1998 Completed [facility] of Dosage 00:00:00 [facility] HIB 4 Dose Schedule 1998 [...] Branch IPV 1998 Completed [facility] 00:00:00 [facility] DTaP, Unspecified 1998 Completed [facility] Formulation 00:00:00 [facility] Hep B, Adol or Pedi 1998 Completed [facility] of Dosage 00:00:00 [facility] HIB 4 Dose Schedule 1998 Completed [facility] 00:00:00 [facility] IPV 1998 Completed [facility] 00:00:00 [facility] DTaP, Unspecified 1998 Completed [facility] Formulation 00:00:00 [facility] Hep B, Adol or Pedi 1998 Completed [facility] of Dosage 00:00:00 [facility] HIB 4 Dose Schedule 1998 Completed [facility] 00:00:00 [facility] IPV 1998 Completed [facility] 00:00:00 [facility] DTaP, Unspecified 1998 Completed [facility] Formulation 00:00:00 [facility] Hep B, Adol or Pedi 1998 Completed [facility] of Dosage 00:00:00 [facility] HIB 4 Dose Schedule 1998 [...] Branch IPV 1998 Completed [facility] 00:00:00 [facility] DTaP, Unspecified 1998 Completed [facility] Formulation 00:00:00 [facility] Hep B, Adol or Pedi 1998 Completed [facility] of Dosage 00:00:00 [facility] HIB 4 Dose Schedule 1998 Completed [facility] 00:00:00 [facility] IPV 1998 Completed [facility] 00:00:00 [facility] DTaP, Unspecified 1998 Completed [facility] Formulation 00:00:00 [facility] Hep B, Adol or Pedi 1998 Completed [facility] of Dosage 00:00:00 [facility] HIB 4 Dose Schedule 1998 Completed [facility] 00:00:00 [facility] IPV 1998 Completed [facility] 00:00:00 [facility] DTaP, Unspecified 1998 Completed [facility] Formulation 00:00:00 [facility] Hep B, Adol or Pedi 1998 Completed [facility] of Dosage 00:00:00 [facility] HIB 4 Dose Schedule 1998 Completed [...] Branch IPV 1998 Completed [facility] 00:00:00 [facility] DTaP, Unspecified 1998 Completed Univers [...] Branch IPV 1998 Completed [facility] 00:00:00 [facility] DTaP, Unspecified 1998 Completed [facility] Formulation 00:00:00 [facility] Hep B, Adol or Pedi 1998 Completed [facility] of Dosage 00:00:00 [facility] HIB 4 Dose Schedule 1998 Completed [facility] 00:00:00 [facility] IPV 1998 Completed [facility] 00:00:00 [facility] DTaP, Unspecified 1998 Completed [facility] Formulation 00:00:00 [facility] Hep B, Adol or Pedi 1998 Completed [facility] of Dosage 00:00:00 [facility] HIB 4 Dose Schedule 1998 Completed [facility] 00:00:00 [facility] IPV 1998 Completed [facility] 00:00:00 [facility] DTaP, Unspecified 1998 Completed [facility] Formulation 00:00:00 [facility] Hep B, Adol or Pedi 1998 Completed [facility] Dosage 00:00:00 [facility] HIB 4 Dose Schedule 1998 Completed Unive rsity of 00:00:00 [facility] IPV 1998 Completed University of 00:00:00 [facility] DTaP, Unspecified 1998 Completed Univers ity of Formulation 00:00:00 [facility] Hep B, Adol or Pedi 1998 Completed Unive rsity of Dosage 00:00:00 [facility] HIB 4 Dose Schedule 1998 Completed Unive rsity of 00:00:00 [facility] IPV 1998 Completed University of 00:00:00 [facility] DTaP, Unspecified 1998 Completed Univers ity of Formulation 00:00:00 [facility] Hep B, Adol or Pedi 1998 Completed Unive rsity of Dosage 00:00:00 [facility] HIB 4 Dose Schedule 1998 [...] Branch IPV 1998 Completed University of 00:00:00 [facility] DTaP, Unspecified 1998 Completed Univers ity of Formulation 00:00:00 [facility] IPV 1998 Completed University of 00:00:00 [facility] DTaP, Unspecified 1998 Completed Univers ity of Formulation 00:00:00 [facility] IPV 1998 Completed University of 00:00:00 [facility] DTaP, Unspecified 1998 Completed Univers ity of Formulation 00:00:00 [facility] IPV 1998 Completed University of 00:00:00 [facility] DTaP, Unspecified 1998 Completed Univers ity of Formulation 00:00:00 [facility] IPV 1998 Completed University of 00:00:00 [facility] DTaP, Unspecified 1998 Completed Univers ity of Formulation 00:00:00 [facility] IPV 1998 Completed University of 00:00:00 [facility] DTaP, Unspecified 1998 Completed Univers ity of Formulation 00:00:00 [facility] IPV 1998 Completed University of 00:00:00 [facility] DTaP, Unspecified 1998 Completed Univers ity of Formulation 00:00:00 [facility] IPV 1998 Completed University of 00:00:00 [facility] DTaP, Unspecified 1998 Completed Univers ity of Formulation 00:00:00 [facility] IPV 1998 Completed University of 00:00:00 [facility] DTaP, Unspecified 1998 Completed Univers ity of Formulation 00:00:00 [facility] IPV 1998 Completed University of 00:00:00 [facility] DTaP, Unspecified 1998 Completed Univers ity of Formulation 00:00:00 [facility] IPV 1998 Completed [facility] 00:00:00 [facility] DTaP, Unspecified 1998 Completed Univers ity of Formulation 00:00:00 [facility] IPV 1998 Completed University of 00:00:00 [facility] DTaP, Unspecified 1998 Completed Univers ity of Formulation 00:00:00 [facility] IPV 1998 Completed [facility] 00:00:00 [facility] DTaP, Unspecified 1998 Completed [facility] ity of Formulation 00:00:00 [facility] IPV 1998 Completed [facility] of 00:00:00 [facility] DTaP, Unspecified 1998 Completed [facility] ity of Formulation 00:00:00 [facility] IPV 1998 Completed [facility] of 00:00:00 [facility] DTaP, Unspecified 1998 Completed [facility] ity of Formulation 00:00:00 [facility] IPV 1998 Completed [facility] of 00:00:00 [facility] DTaP, Unspecified 1998 Completed Univers ity of Formulation 00:00:00 [facility] IPV 1998 Completed University of 00:00:00 [facility] DTaP, Unspecified 1998 Completed Univers ity of Formulation 00:00:00 [facility] IPV 1998 Completed University of 00:00:00 [facility] DTaP, Unspecified 1998 Completed Univers ity of Formulation 00:00:00 [facility] IPV 1998 Completed [facility] of 00:00:00 [facility] DTaP, Unspecified 1998 Completed Univers ity of Formulation 00:00:00 [facility] IPV 1998 Completed [facility] of 00:00:00 [facility] DTaP, Unspecified 1998 Completed Univers ity of Formulation 00:00:00 [facility] IPV 1998 Completed University of 00:00:00 [facility] DTaP, Unspecified 1998 Completed [facility] ity of Formulation 00:00:00 [facility] IPV 1998 Completed [facility] of 00:00:00 [facility] DTaP, Unspecified 1998 Completed Univers ity of Formulation 00:00:00 [facility] IPV 1998 Completed [facility] of 00:00:00 [facility] DTaP, Unspecified 1998 Completed Univers ity of Formulation 00:00:00 [facility] IPV 1998 Completed University of 00:00:00 [facility] DTaP, Unspecified 1998 Completed Univers ity of Formulation 00:00:00 [facility] IPV 1998 Completed University of 00:00:00 [facility] DTaP, Unspecified 1998 Completed Univers ity of Formulation 00:00:00 [facility] IPV 1998 Completed University of 00:00:00 [facility] DTaP, Unspecified 1998 Completed Univers ity of Formulation 00:00:00 [facility] IPV 1998 Completed [facility] of 00:00:00 [facility] DTaP, Unspecified 1998 Completed [facility] ity of Formulation 00:00:00 [facility] IPV 1998 Completed [facility] of 00:00:00 [facility] DTaP, Unspecified 1998 Completed Univers ity of Formulation 00:00:00 [facility] IPV 1998 Completed University of 00:00:00 [facility] DTaP, Unspecified 1998 Completed Univers ity of Formulation 00:00:00 [facility] IPV 1998 Completed University of 00:00:00 [facility] DTaP, Unspecified 1998 Completed Univers ity of Formulation 00:00:00 [facility] IPV 1998 Completed University of 00:00:00 [facility] DTaP, Unspecified 1998 Completed [facility] ity of Formulation 00:00:00 [facility] IPV 1998 Completed University of 00:00:00 [facility] DTaP, Unspecified 1998 Completed Univers ity of Formulation 00:00:00 [facility] IPV 1998 Completed [facility] of 00:00:00 [facility] DTaP, Unspecified 1998 Completed [facility] ity of Formulation 00:00:00 [facility] IPV 1998 Completed [facility] of 00:00:00 [facility] DTaP, Unspecified 1998 Completed Univers ity of Formulation 00:00:00 [facility] IPV 1998 Completed [facility] of 00:00:00 [facility] DTaP, Unspecified 1998 Completed Univers ity of Formulation 00:00:00 [facility] IPV 1998 Completed [facility] of 00:00:00 [facility] DTaP, Unspecified 1998 Completed Univers ity of Formulation 00:00:00 [facility] IPV 1998 Completed University of 00:00:00 [facility] DTaP, Unspecified 1998 Completed Univers ity of Formulation 00:00:00 [facility] IPV 1998 Completed University of 00:00:00 [facility] DTaP, Unspecified 1998 Completed Univers ity of Formulation 00:00:00 [facility] IPV 1998 Completed University of 00:00:00 [facility] DTaP, Unspecified 1998 Completed Univers ity of Formulation 00:00:00 [facility] IPV 1998 Completed [facility] of 00:00:00 [facility] Hep B, Adol or Pedi [...] 1998 Completed Unive rsity of Dosage 00:00:00 [facility] Hep B, Adol or Pedi 1998 Completed Unive rsity of Dosage 00:00:00 [facility] Hep B, Adol or Pedi 1998 Completed Unive rsity of Dosage 00:00:00 [facility] Hep B, Adol or Pedi 1998 Completed Unive rsity of Dosage 00:00:00 [facility] Hep B, Adol or Pedi 1998 Completed Unive rsity of Dosage 00:00:00 [facility] Hep B, Adol or Pedi 1998 Completed Unive rsity of Dosage 00:00:00 [facility] Hep B, Adol or Pedi 1998 Completed Unive rsity of Dosage 00:00:00 [facility] Hep B, Adol or Pedi 1998 Completed Unive rsity of Dosage 00:00:00 [facility] TDAP Unknown Completed [facility] MMR Unknown Completed [facility] HPV9 Unknown Completed [facility] HPV9 Unknown Completed [facility] HPV9 Unknown Completed [facility] Influenza Virus Unknown Completed Universit y of Vaccine Quad IM 3+ [facility] SARS-COV-2 COVID-19 Unknown Completed Unive rsity of PFIZER VACCINE [facility] SARS-COV-2 COVID-19 Unknown Completed Unive rsity of PFIZER VACCINE [facility] Influenza Virus Unknown Completed Universit y of Vaccine Quad IM, [place] [facility] and ABX Free Bran ch 6 MO-64 YRS (FLUCELVAX) DTaP, Unspecified Unknown Completed Univers ity of Formulation [facility] DTaP, Unspecified Unknown Completed Univers ity of Formulation [facility] DTaP, Unspecified Unknown Completed Univers ity of Formulation [facility] DTaP, Unspecified Unknown Completed Univers ity of Formulation [facility] DTaP, Unspecified Unknown Completed Univers ity of Formulation [facility] Influenza Virus Unknown Completed Universit y of Vaccine - Whole [facility] HEPATITIS A Unknown Completed [facility] HEPATITIS A Unknown Completed [facility] Hep B, Adol or Pedi Unknown Completed Unive rsity of Dosage [facility] Hep B, Adol or Pedi Unknown Completed Unive rsity of Dosage [facility] Hep B, Adol or Pedi Unknown Completed Unive rsity of Dosage [facility] HIB 4 Dose Schedule Unknown [facility] D[facility] Dose [facility] Unknown [facility] 4 Dose Schedule Unknown Completed Unive [facility] HPV Unknown Completed [facility] HPV Unknown Completed [facility] Meningococcal Unknown Completed [facility] Polysaccharide [facility] (groups A, C, Y and Branc h W-135) conjugate vaccine (MCV4P) Meningococcal Unknown Completed [facility] (groups A, C, Y and Branc h W-135) conjugate vaccine (MCV4P) MMR Unknown Completed [facility] MMR Unknown Completed [facility] Pneumococcal 7 Unknown Completed [facility] Conjugate, PCV7 [facility] (Prevnar7) Branch IPV Unknown Completed [facility] IPV Unknown Completed [facility] IPV Unknown Completed [facility] IPV Unknown Completed [facility] TDAP Unknown Completed [facility] Varicella Unknown Completed [facility] (varivax)(chicken [place] [facility] pox[place] Branch Varicella Unknown Completed [facility] (varivax)(chicken [place] [facility] pox[place] [facility] TDAP Unknown Completed [facility] MMR Unknown Completed [facility] HPV9 Unknown Completed [facility] HPV9 Unknown Completed [facility] HPV9 Unknown Completed [facility] Influenza Virus Unknown Completed Universit y of Vaccine Quad IM 3+ [facility] SARS-COV-2 COVID-19 Unknown Completed Unive rsity of PFIZER VACCINE [facility] SARS-COV-2 COVID-19 Unknown Completed Unive rsity of PFIZER VACCINE [facility] Influenza Virus Unknown Completed Universit y of Vaccine Quad IM, [place] [facility] Preserv and ABX Free Bran ch 6 MO-64 YRS (FLUCELVAX) DTaP, Unspecified Unknown Completed Univers ity of Formulation [facility] DTaP, Unspecified Unknown Completed Univers ity of Formulation [facility] DTaP, Unspecified Unknown Completed Univers ity of Formulation [facility] DTaP, Unspecified Unknown Completed Univers ity of Formulation [facility] DTaP, Unspecified Unknown Completed Univers ity of Formulation [facility] Influenza Virus Unknown Completed Universit y of Vaccine - Whole [facility] Branch HEPATITIS A Unknown Completed [facility] HEPATITIS A Unknown Completed [facility] Hep B, Adol or Pedi Unknown Completed Unive rsity of Dosage [facility] Hep B, Adol or Pedi Unknown Completed Unive rsity of Dosage [facility] Hep B, Adol or Pedi Unknown Completed Unive rsity of Dosage [facility] HIB 4 Dose Schedule Unknown [facility] Dose [facility] Unknown [facility] 4 Dose Schedule Unknown [facility] 4 Dose Schedule Unknown Completed Unive [facility] HPV Unknown Completed [facility] HPV Unknown Completed [facility] Meningococcal Unknown Completed [facility] Polysaccharide [facility] (groups A, C, Y and Branc h W-135) conjugate vaccine (MCV4P) Meningococcal Unknown Completed [facility] (groups A, C, Y and Branc h W-135) conjugate vaccine (MCV4P) MMR Unknown Completed [facility] MMR Unknown Completed [facility] Pneumococcal 7 Unknown Completed [facility] Conjugate, PCV7 [facility] (Prevnar7) Branch IPV Unknown Completed [facility] IPV Unknown Completed [facility] IPV Unknown Completed [facility] IPV Unknown Completed [facility] TDAP Unknown Completed [facility] Varicella Unknown Completed [facility] (varivax[place]chicken [place] [facility] pox) Branch Varicella Unknown Completed [facility] (varivax)(chicken [place] [facility] pox) Branch TDAP Unknown Completed [facility] MMR Unknown Completed [facility] HPV9 Unknown Completed [facility] HPV9 Unknown Completed [facility] HPV9 Unknown Completed [facility] Influenza Virus Unknown Completed Universit y of Vaccine Quad IM 3+ [facility] SARS-COV-2 COVID-19 Unknown Completed Unive rsity of PFIZER VACCINE [facility] SARS-COV-2 COVID-19 Unknown Completed Unive rsity of PFIZER VACCINE [facility] DTaP, Unspecified Unknown Completed Univers ity of Formulation [facility] DTaP, Unspecified Unknown Completed Univers ity of Formulation [facility] DTaP, Unspecified Unknown Completed Univers ity of Formulation [facility] DTaP, Unspecified Unknown Completed Univers ity of Formulation [facility] DTaP, Unspecified Unknown Completed Univers ity of Formulation [facility] Influenza Virus Unknown Completed Universit y of Vaccine - Whole [facility] Branch HEPATITIS A Unknown Completed [facility] HEPATITIS A Unknown Completed [facility] Hep B, Adol or Pedi Unknown Completed Unive rsity of Dosage [facility] Hep B, Adol or Pedi Unknown Completed Unive rsity of Dosage [facility] Hep B, Adol or Pedi Unknown Completed Unive rsity of Dosage [facility] HIB 4 Dose Schedule Unknown Completed Unive rsity [facility] HIB 4 Dose Schedule Unknown [facility] 4 Dose Schedule Unknown [facility] 4 Dose Schedule Unknown [facility] Unknown Completed [facility] HPV Unknown Completed [facility] Meningococcal Unknown Completed [facility] (groups A, C, Y and Branc h W-135) conjugate vaccine (MCV4P) Meningococcal Unknown Completed [facility] (groups A, C, Y and Branc h W-135) conjugate vaccine (MCV4P) MMR Unknown Completed [facility] MMR Unknown Completed [facility] Pneumococcal 7 Unknown Completed [facility] Conjugate, PCV7 [facility] (Prevnar7) Branch IPV Unknown Completed [facility] IPV Unknown Completed [facility] IPV Unknown Completed [facility] IPV Unknown Completed [facility] TDAP Unknown Completed [facility] Varicella Unknown Completed [facility] (varivax[place]chicken [place] [facility] pox[place] Branch Varicella Unknown Completed [facility] (varivax)(chicken [place] [facility] pox) Branch TDAP Unknown Completed [facility] MMR Unknown Completed [facility] HPV9 Unknown Completed [facility] HPV9 Unknown Completed [facility] HPV9 Unknown Completed [facility] Influenza Virus Unknown Completed Universit y of Vaccine Quad IM 3+ [facility] SARS-COV-2 COVID-19 Unknown Completed Unive rsity of PFIZER VACCINE [facility] SARS-COV-2 COVID-19 Unknown Completed Unive rsity of PFIZER VACCINE [facility] DTaP, Unspecified Unknown Completed Univers ity of Formulation [facility] DTaP, Unspecified Unknown Completed Univers ity of Formulation [facility] DTaP, Unspecified Unknown Completed Univers ity of Formulation [facility] DTaP, Unspecified Unknown Completed Univers ity of Formulation [facility] DTaP, Unspecified Unknown Completed Univers ity of Formulation [facility] Influenza Virus Unknown [facility] Vacc[facility] HEPATITIS A Unknown Completed [facility] HEPATITIS A Unknown Completed [facility] Hep B, Adol or Pedi Unknown Completed Unive rsity of Dosage [facility] Hep B, Adol or Pedi Unknown Completed Unive rsity of Dosage [facility] Hep B, Adol or Pedi Unknown Completed Unive rsity of Dosage [facility] HIB 4 Dose Schedule Unknown [facility] Dose Schedule Unknown Com[facility] 4 Dose Schedule Unknown Com[facility] 4 Dose Schedule Unknown Completed Unive [facility] HPV Unknown Completed [facility] HPV Unknown Completed [facility] Meningococcal Unknown Completed [facility] (groups A, C, Y and Branc h W-135) conjugate vaccine (MCV4P) Meningococcal Unknown Completed [facility] (groups A, C, Y and Branc h W-135) conjugate vaccine (MCV4P) MMR Unknown Completed [facility] MMR Unknown Completed [facility] Pneumococcal 7 Unknown Completed [facility] Conjugate, PCV7 [facility] (Prevnar7) Branch IPV Unknown Completed [facility] IPV Unknown Completed [facility] IPV Unknown Completed [facility] IPV Unknown Completed [facility] TDAP Unknown Completed [facility] Varicella Unknown Completed [facility] (varivax[facility]chicken [place] [facility] pox) Branch Varicella Unknown Completed [facility] (varivax)(chicken [place] [facility] pox) [place] Vital Signs Vital Name Observation Time Observation Value Comments Source Systolic blood 2022-08-29 13:00:00 108 mm[Hg] [facility] Diastolic blood 2022-08-29 13:00:00 66 [facility]-29 13:00:00 77 /min [facility] Body temperature 2022-08-29 13:00:00 36.06 Leigh [facility] Respiratory rate 2022-08-29 13:00:00 18 /min [facility] Oxygen saturation in 2022-08-29 13:00:00 99 /min University Arterial blood by [facility] Pulse oximetry Branch Body height 2022-08-26 19:36:00 165.1 cm [facility] Body weight 2022-08-26 19:36:00 83.519 kg [facility] BMI 2022-08-26 19:36:00 30.64 kg/m2 Universi ty of [facility] Systolic blood 2022-08-25 18:41:00 123 mm[Hg] Univer sity of pressure [facility] Diastolic blood 2022-08-25 18:41:00 84 mm[Hg] Unive rsity of pressure [facility] Heart rate 2022-08-25 18:41:00 85 /min Universi ty of [facility] Body temperature 2022-08-25 18:41:00 36.5 Leigh Univ ersity of [facility] Respiratory rate 2022-08-25 18:41:00 16 /min Univ ersity of [facility] Body height 2022-08-25 18:41:00 165.1 cm [facility] Body weight 2022-08-25 18:41:00 83.519 kg [facility] BMI 2022-08-25 18:41:00 30.64 kg/m2 Universi ty of [facility] Systolic blood 2022-08-20 13:19:00 125 mm[Hg] Univer sity of pressure [facility] Diastolic blood 2022-08-20 13:19:00 85 mm[Hg] Unive rsity of pressure [facility] Heart rate 2022-08-20 13:19:00 81 /min [facility] Body temperature 2022-08-20 13:19:00 36.39 Leigh [facility] ers[facility] of [facility] Respiratory rate 2022-08-20 13:19:00 18 /min Univ ersity of [facility] Body height 2022-08-20 13:19:00 165.1 cm [facility] Body weight 2022-08-20 13:19:00 82.158 kg [facility] BMI 2022-08-20 13:19:00 30.14 kg/m2 Universi ty of [facility] Systolic blood 2022-08-17 20:01:00 125 mm[Hg] Univer sity of pressure [facility] Diastolic blood 2022-08-17 20:01:00 83 mm[Hg] Unive rsity of pressure [facility] Heart rate 2022-08-17 20:01:00 88 /min [facility] Body temperature 2022-08-17 20:01:00 36.28 Leigh [facility] Respiratory rate 2022-08-17 20:01:00 18 /min Univ ers[facility] Body height 2022-08-17 20:01:00 165.1 cm [facility] Body weight 2022-08-17 20:01:00 83.008 kg [facility] BMI 2022-08-17 20:01:00 30.45 kg/m2 [facility] [place] [facility] [place] Oxygen saturation in 2022-08-17 20:01:00 98 /min University of Arterial blood by [facility] Pulse oximetry Branch Systolic blood 2022-08-13 14:54:00 122 mm[Hg] Univer sity of pressure [facility] Diastolic blood 2022-08-13 14:54:00 80 mm[Hg] Unive rsity of pressure [facility] Heart rate 2022-08-13 14:54:00 83 /min [facility] Body temperature 2022-08-13 14:54:00 36.22 Leigh Univ ers[facility] of [facility] Respiratory rate 2022-08-13 14:54:00 16 /min Univ ersity of [facility] Body height 2022-08-13 14:54:00 165.1 cm [facility] Body weight 2022-08-13 14:54:00 81.676 kg [facility] BMI 2022-08-13 14:54:00 29.96 kg/m2 [facility] Systolic blood 2022-08-10 19:31:00 129 mm[Hg] Univer sity of [facility] Diastolic blood 2022-08-10 19:31:00 85 mm[Hg] Unive rsity of pressure [facility] Heart rate 2022-08-10 19:31:00 86 /min [facility] Body temperature 2022-08-10 19:31:00 36.28 Leigh [facility] Respiratory rate 2022-08-10 19:31:00 18 /min [facility] Body height 2022-08-10 19:31:00 165.1 cm [facility] Body weight 2022-08-10 19:31:00 81.874 kg [facility] BMI 2022-08-10 19:31:00 30.04 kg/m2 [facility] Systolic blood 2022-08-04 19:31:00 123 mm[Hg] Univer [facility]ity of [facility] Diastolic blood 2022-08-04 19:31:00 81 mm[Hg] Unive rsity of pressure [facility] Heart rate 2022-08-04 19:31:00 97 /min [facility] Body temperature 2022-08-04 19:31:00 36.56 Leigh [facility] Respiratory rate 2022-08-04 19:31:00 18 /min [facility] Body height 2022-08-04 19:31:00 165.1 cm [facility] Body weight 2022-08-04 19:31:00 81.392 kg [facility] BMI 2022-08-04 19:31:00 29.86 kg/m2 [facility] Systolic blood 2022-07-31 17:53:00 115 mm[Hg] Univer [facility]ity of pressure [facility] Diastolic blood 2022-07-31 17:53:00 74 mm[Hg] Unive rsity of pressure [facility] Heart rate 2022-07-31 17:53:00 83 /min [facility] Body temperature 2022-07-31 17:53:00 36.39 Leigh [facility] Respiratory rate 2022-07-31 17:53:00 18 /min [facility] Body height 2022-07-31 17:53:00 165.1 cm [facility] Body weight 2022-07-31 17:53:00 81.557 kg [facility] BMI 2022-07-31 17:53:00 29.92 kg/m2 [facility] Systolic blood 2022-07-23 14:53:00 122 mm[Hg] [facility] of [facility] Diastolic blood 2022-07-23 14:53:00 79 mm[Hg] Unive rsity of pressure [facility] Heart rate 2022-07-23 14:53:00 89 /min [facility] Body temperature 2022-07-23 14:53:00 35.94 Leigh [facility] Respiratory rate 2022-07-23 14:53:00 18 /min Univ [facility] Body height 2022-07-23 14:53:00 165.1 cm [facility] Body weight 2022-07-23 14:53:00 79.89 kg [facility] BMI 2022-07-23 14:53:00 29.31 kg/m2 [facility] Systolic blood 2022-07-20 19:11:00 139 mm[Hg] [facility] Diastolic blood 2022-07-20 19:11:00 88 mm[Hg] Unive rsity of pressure [facility] Heart rate 2022-07-20 19:11:00 104 /min [facility] Body temperature 2022-07-20 19:05:00 36.33 Leigh [facility] Respiratory rate 2022-07-20 19:05:00 18 /min [facility] Body height 2022-07-20 19:05:00 165.1 cm [facility] Body weight 2022-07-20 19:05:00 79.975 kg [facility] BMI 2022-07-20 19:05:00 29.34 kg/m2 [facility] Systolic blood 2022-07-16 14:40:00 120 mm[Hg] [facility] Diastolic blood 2022-07-16 14:40:00 83 mm[Hg] Unive rsity of pressure [facility] Heart rate 2022-07-16 14:40:00 99 /min [facility] Body temperature 2022-07-16 14:40:00 36.11 Leigh Univ ersity of [facility] Respiratory rate 2022-07-16 14:40:00 17 /min Univ ersity of [facility] Body height 2022-07-16 14:40:00 165.1 cm [facility]i [facility] Body weight 2022-07-16 14:40:00 79.493 kg [facility] BMI 2022-07-16 14:40:00 29.16 kg/m2 [facility] Systolic blood 2022-07-15 19:45:00 119 mm[Hg] Univer sity of pressure [facility] Diastolic blood 2022-07-15 19:45:00 70 mm[Hg] Unive rsity of pressure [facility] Heart rate 2022-07-15 19:45:00 82 /min [facility] Body temperature 2022-07-15 19:45:00 36.78 Leigh Univ [facility] of [facility] Respiratory rate 2022-07-15 19:45:00 18 /min [facility] Oxygen saturation in 2022-07-15 19:45:00 99 /min University of Arterial blood by [facility] Pulse oximetry Branch Body height 2022-07-15 16:51:00 165.1 cm Universi ty of [facility] Body weight 2022-07-15 16:51:00 80.06 kg [facility]i [facility] BMI 2022-07-15 16:51:00 29.37 kg/m2 [facility] Systolic blood 2022-07-10 14:01:00 129 mm[Hg] Univer sity of pressure [facility] Diastolic blood 2022-07-10 14:01:00 87 mm[Hg] Unive rsity of [facility] Heart rate 2022-07-10 14:01:00 89 /min [facility]i ty of [facility] Body temperature 2022-07-10 14:01:00 36.17 Leigh Univ [facility] of [facility] Respiratory rate 2022-07-10 14:01:00 18 /min Univ ersity of [facility] Body height 2022-07-10 14:01:00 165.1 cm [facility] Body weight 2022-07-10 14:01:00 79.946 kg Universi [facility] of [facility] BMI 2022-07-10 14:01:00 29.33 kg/m2 [facility] Systolic blood 2022-07-08 14:25:00 115 mm[Hg] [facility]ity of [facility] Diastolic blood 2022-07-08 14:25:00 72 mm[Hg] Unive rsity of pressure [facility] Heart rate 2022-07-08 14:25:00 77 /min [facility] Body temperature 2022-07-08 14:25:00 36.17 Leigh [facility] Respiratory rate 2022-07-08 14:25:00 18 /min [facility] Body height 2022-07-08 14:25:00 165.1 cm [facility] Body weight 2022-07-08 14:25:00 77.735 kg [facility] BMI 2022-07-08 14:25:00 28.52 kg/m2 [facility] Heart rate 2022-06-24 15:23:00 95 /min [facility] Body temperature 2022-06-24 15:23:00 35.67 Leigh [facility] Respiratory rate 2022-06-24 15:23:00 18 /min [facility] Body height 2022-06-24 15:23:00 165.1 cm [facility] Body weight 2022-06-24 15:23:00 78.104 kg [facility] BMI 2022-06-24 15:23:00 28.65 kg/m2 [facility] Systolic blood 2022-06-24 15:23:00 124 mm[Hg] [facility] Diastolic blood 2022-06-24 15:23:00 90 mm[Hg] Unive rsity of pressure [facility] Systolic blood 2022-06-10 21:11:00 128 mm[Hg] Univer [facility]ity of pressure [facility] Diastolic blood 2022-06-10 21:11:00 84 mm[Hg] Unive rsity of pressure [facility] Heart rate 2022-06-10 21:11:00 104 /min [facility] Body temperature 2022-06-10 21:11:00 35.89 Leigh [facility] Respiratory rate 2022-06-10 21:11:00 18 /min [facility] Body height 2022-06-10 21:11:00 165.1 cm [facility] Body weight 2022-06-10 21:11:00 74.844 kg [facility] BMI 2022-06-10 21:11:00 27.46 kg/m2 [facility] Systolic blood 2022-06-05 18:26:00 118 mm[Hg] Univer [facility]ity of pressure [facility] Diastolic blood 2022-06-05 18:26:00 68 mm[Hg] Unive rsity of pressure [facility] Heart rate 2022-06-05 18:26:00 111 /min [facility] Body temperature 2022-06-05 18:26:00 37 Leigh [facility] Respiratory rate 2022-06-05 18:26:00 20 /min [facility] Body weight 2022-06-05 18:26:00 72.576 kg [facility] BMI 2022-06-05 18:26:00 26.63 kg/m2 [facility] Oxygen saturation in 2022-06-05 18:26:00 99 /min University of Arterial blood by [facility] Pulse oximetry Branch Heart rate 2022-05-30 21:15:00 89 /min [facility] Oxygen saturation in 2022-05-30 21:15:00 100 /min University of Arterial blood by [facility] Pulse oximetry Branch Systolic blood 2022-05-30 19:21:00 124 mm[Hg] Univer sity of pressure [facility] Diastolic blood 2022-05-30 19:21:00 78 mm[Hg] Unive rsity of pressure [facility] Body temperature 2022-05-30 19:21:00 37.06 Leigh [facility] Respiratory rate 2022-05-30 19:21:00 18 /min [facility] Body weight 2022-05-30 19:05:00 73.483 kg [facility] BMI 2022-05-30 19:05:00 26.96 kg/m2 [facility] Systolic blood 2022-05-20 12:55:00 117 mm[Hg] Univer sity of pressure [facility] Diastolic blood 2022-05-20 12:55:00 82 mm[Hg] Unive rsity of pressure [facility] Heart rate 2022-05-20 12:55:00 85 /min Universi ty of [facility] Branch Body temperature 2022-05-20 12:55:00 36.39 Leigh [facility] Respiratory rate 2022-05-20 12:55:00 20 /min Univ [facility] Body height 2022-05-20 12:55:00 165.1 cm [facility] Body weight 2022-05-20 12:55:00 73.755 kg [facility] BMI 2022-05-20 12:55:00 27.06 kg/m2 Universi ty of [facility] Heart rate 2022-04-21 05:30:00 76 /min Universi ty of [facility] Oxygen saturation in 2022-04-21 05:30:00 100 /min University of Arterial blood by [facility] Pulse oximetry Branch Systolic blood 2022-04-21 05:00:00 115 mm[Hg] Univer sity of pressure [facility] Diastolic blood 2022-04-21 05:00:00 76 mm[Hg] Unive rsity of pressure [facility] Body temperature 2022-04-21 05:00:00 36.61 Leigh Univ ersity of [facility] Respiratory rate 2022-04-21 05:00:00 18 /min Univ ersity of [facility] Body height 2022-04-21 05:00:00 165.1 cm [facility] Body weight 2022-04-21 05:00:00 72.122 kg [facility] BMI 2022-04-21 05:00:00 26.46 kg/m2 [facility] Systolic blood 2022-04-16 16:47:00 108 mm[Hg] Univer sity of pressure [facility] Diastolic blood 2022-04-16 16:47:00 73 mm[Hg] Unive rsity of pressure [facility] Heart rate 2022-04-16 16:47:00 67 /min [facility] Body temperature 2022-04-16 16:47:00 36.89 Leigh [facility] Respiratory rate 2022-04-16 16:47:00 17 /min [facility] Body height 2022-04-16 16:47:00 165.1 cm [facility] Body weight 2022-04-16 16:47:00 72.213 kg [facility] BMI 2022-04-16 16:47:00 26.49 kg/m2 [facility] Systolic blood 2022-03-19 20:31:00 114 mm[Hg] Univer sity of pressure [facility] Diastolic blood 2022-03-19 20:31:00 77 mm[Hg] Unive rsity of pressure [facility] Heart rate 2022-03-19 20:31:00 81 /min [facility] Body temperature 2022-03-19 20:31:00 36.56 Leigh [facility] Respiratory rate 2022-03-19 20:31:00 18 /min [facility] Body height 2022-03-19 20:31:00 165.1 cm [facility] Body weight 2022-03-19 20:31:00 70.035 kg [facility] BMI 2022-03-19 20:31:00 25.69 kg/m2 [facility] Systolic blood 2022-02-24 20:07:00 138 mm[Hg] Univer sity of pressure [facility] Diastolic blood 2022-02-24 20:07:00 87 mm[Hg] Unive rsity of pressure [facility] Heart rate 2022-02-24 20:07:00 95 /min [facility] Body temperature 2022-02-24 20:07:00 36.72 Leigh [facility] Respiratory rate 2022-02-24 20:07:00 18 /min [facility] Body height 2022-02-24 20:07:00 165.1 cm [facility] Body weight 2022-02-24 20:07:00 68.068 kg [facility] BMI 2022-02-24 20:07:00 24.97 kg/m2 [facility] Systolic blood 2022-01-17 16:46:00 128 mm[Hg] Univer sity of [facility] Diastolic blood 2022-01-17 16:46:00 87 mm[Hg] Unive rsity of pressure [facility] Heart rate 2022-01-17 16:45:00 69 /min [facility] Body temperature 2022-01-17 16:45:00 36.5 Leigh [facility] Respiratory rate 2022-01-17 16:45:00 20 /min [facility] Body height 2022-01-17 16:45:00 165.1 cm [facility] Body weight 2022-01-17 16:45:00 67.405 kg [facility] BMI 2022-01-17 16:45:00 24.73 kg/m2 [facility] Oxygen saturation in 2021-01-30 20:01:00 97 /min [place] of Arterial blood by [facility] Pulse oximetry Branch Systolic blood 2021-01-30 20:01:00 132 mm[Hg] Univer sity of pressure [facility] Diastolic blood 2021-01-30 20:01:00 72 mm[Hg] Unive rsity of pressure [facility] Heart rate 2021-01-30 20:01:00 88 /min [facility] Body temperature 2021-01-30 20:01:00 37.11 Leigh [facility] Respiratory rate 2021-01-30 20:01:00 18 /min [facility] Body height 2021-01-30 20:01:00 165.1 cm [facility] Body weight 2021-01-30 20:01:00 67.217 kg [facility] BMI 2021-01-30 20:01:00 24.66 kg/m2 [facility] Systolic blood 2020-02-11 21:15:00 135 mm[Hg] Univer sity of [facility] Diastolic blood 2020-02-11 21:15:00 95 mm[Hg] Unive rsity of pressure [facility] Oxygen saturation in 2020-02-11 21:15:00 99 /min University of Arterial blood by [facility] Pulse oximetry Branch Heart rate 2020-02-11 19:35:00 98 /min Universi [facility] Body temperature 2020-02-11 19:35:00 37 Leigh [facility] Respiratory rate 2020-02-11 19:35:00 18 /min Univ [facility] Body weight 2020-02-11 19:35:00 70.761 kg [facility] Systolic blood 2020-02-11 21:15:00 135 mm[Hg] Univer sity of pressure [facility] Diastolic blood 2020-02-11 21:15:00 95 mm[Hg] Unive rsity of pressure [facility] Oxygen saturation in 2020-02-11 21:15:00 99 /min University of Arterial blood by [facility] Pulse oximetry Branch Heart rate 2020-02-11 19:35:00 98 /min [facility] 2020-02-11 19:35:00 37 Leigh [facility] Respiratory rate 2020-02-11 19:35:00 18 /min [facility] Body weight 2020-02-11 19:35:00 70.761 kg [facility] Procedures Procedure Date / Time Performing Clinician Source Performed DME/SUPPLY JUSTIFICATION 2022-09-15 05:01:00 Doctor Unassigned, No [facility] Name [facility] CBC WITH DIFF 2022-08-28 09:39:00 Gila Berrios [facility] VENOUS CORD GAS 2022-08-28 04:27:00 Frieda Newsome [facility] CENTRAL NEURAXIAL BLOCK 2022-08-27 12:22:00 Melina [facility] HEPATITIS B SURFACE 2022-08-26 20:23:00 Frieda Newsome [facility] ANTIGEN [facility] HB ABO GROUPING 2022-08-26 20:23:00 Frieda Newsome [facility] RHO (D) IMMUNE GLOBULIN 2022-08-26 20:23:00 Yash, [facility] SYPHILIS IGG/IGM 2022-08-26 20:23:00 Frieda Newsome [facility] NON-STRESS TEST 2022-08-26 00:10:22 [facility] 2022-08-25 18:49:00 Akinsipe, Julian C [facility] POCT URINALYSIS 2022-08-25 18:44:00 Akinsipe, Julian C [facility] NON-STRESS TEST 2022-08-20 14:03:39 [facility] 2022-08-20 13:20:00 Akinsipe, Julian C [facility] NON-STRESS TEST 2022-08-17 21:16:23 [facility] 2022-08-17 20:04:00 Akinsipe, Julian C [facility] NON-STRESS TEST 2022-08-13 21:32:17 [facility]ue [facility]iong [facility]ALYSIS 2022-08-13 14:56:00 Akinsipe, Julian C [facility] NON-STRESS TEST 2022-08-11 02:24:06 Shruthi Malik [facility] POCT URINALYSIS 2022-08-10 19:34:00 Akinsipe, Julian C [facility] NON-STRESS TEST 2022-08-05 01:41:48 [facility] 2022-08-04 19:32:00 Akinsipe, Julian C [facility] NON-STRESS TEST 2022-07-31 18:32:53 Akinsipe, Julian C [facility] PO[facility] URINALYSIS 2022-07-31 17:56:00 Akinsipe, Julian C [facility] SECOND AND THIRD 2022-07-24 17:15:00 Qing Morley [facility] TRIMESTER ULTRASOUND Medical [facility] NON-STRESS TEST 2022-07-23 16:09:00 Yue Xiong Un iversity [facility] POCT URINALYSIS 2022-07-23 14:55:00 Julian Roland [facility] NON-STRESS TEST 2022-07-20 23:55:57 Yue Xiong Un iversity [facility] POCT URINALYSIS 2022-07-20 19:12:00 Julian Roland [facility] NON-STRESS TEST 2022-07-16 16:25:43 Aleshia Dodge Uni versity [facility] POCT URINALYSIS 2022-07-16 14:42:00 Julina Roland [facility] URINALYSIS 2022-07-15 18:46:00 Adum, Monique Meza [facility] ADC CLC OR LCC ONLY - 2022-07-15 18:46:00 Adum, Monique Meza [facility] ASSIGNMENT OF BENEFITS 2022-07-15 16:49:38 Doctor Unassigned, No [facility] CONSENT/REFUSAL FOR 2022-07-15 16:48:01 Doctor Unassigned, No [facility] NON-STRESS TEST 2022-07-10 17:18:49 Yue Xiong [facility] POCT URINALYSIS 2022-07-10 14:02:00 Julian Roland [facility] SECOND AND THIRD 2022-07-09 19:22:00 Qing Morley [facility] TRIMESTER ULTRASOUND Medical [facility] SECOND AND THIRD 2022-07-09 19:19:00 Qing Morley [facility] TRIMESTER ULTRASOUND Medical [facility] NON-STRESS TEST 2022-07-08 18:37:07 Yue Xiong Un iversity [facility] POCT URINALYSIS 2022-07-08 14:26:00 Julian Roland [facility] HIV 1/2 AG-AB WITH 2022-06-24 15:54:00 Yue Xiong [facility] SYPHILIS IGG/IGM 2022-06-24 15:54:00 Yue Xiong [facility] POCT URINALYSIS 2022-06-24 15:26:00 Julian Roland [facility] POCT URINALYSIS 2022-06-10 21:11:00 Julian Roland [facility] CONSENT/REFUSAL FOR 2022-06-05 18:19:17 Doctor Unassigned, No [facility] [place] DIAGNOSIS AND [facility] DME/SUPPLY JUSTIFICATION 2022-06-04 05:01:00 Doctor Unassigned, No [facility] URINALYSIS 2022-05-30 20:01:00 Jd [facility] ADC CLC OR LCC ONLY - 2022-05-30 20:01:00 Jd Harleen [facility] WET PREP [facility] CONSENT/REFUSAL FOR 2022-05-30 19:07:42 Doctor Unassigned, No Un iversity of [facility] POCT URINALYSIS 2022-05-20 00:00:00 Julina Roland [facility] URINALYSIS 2022-04-21 05:14:00 Qing Morley [place] [facility] ADC CLC OR LCC ONLY - 2022-04-21 05:14:00 Qing Morley [facility] PREP [facility] POCT URINALYSIS W/O 2022-04-16 16:48:00 [facility]RAV[facility] MATERNAL SERUM SCREEN 2022-04-16 00:00:00 Qing Morley [facility] 1-Q Medical Branch SCANNED LAB RESULTS 2022-03-20 06:01:00 Doctor Unassigned, No Un iversity of [facility] FLU VACC ([id number]), 6 2022-03-19 23:20:50 Qing Morley [facility] MO-62 YRS, .5ML, IM, Medical Bra nch QUAD (FLUCELVAX) POCT URINALYSIS W/O 2022-03-19 00:00:[address] [facility] POCT URINALYSIS 2022-02-24 20:00:00 Julian oRland [facility] POCT TEST 2022-01-17 16:39:00 Shi Manzano [facility] POCT URINALYSIS W/O 2022-01-17 16:39:00 [facility]ENEFITS 2022-01-17 16:30:59 Doctor Unassigned, No [facility] POCT MOLECULAR FLU 2021-01-30 20:13:00 Hamida Nieto [facility] POCT MOLECULAR STREP 2021-01-30 20:10:00 Hamida Nieto [facility] POCT TEST 2020-02-11 20:10:00 Samia Tejada [facility] NOTICE OF PRIVACY 2020-02-11 19:30:19 Doctor Unassigned, No [facility] CONSENT/REFUSAL FOR 2020-02-11 19:30:04 Doctor Unassigned, No [facility] DIAGNOSIS AND TREATMENT [facility] Encounters Start End Encounter Admission Attending Care Care Encounter Source Date/Time Date/Time Type Type Clinicians Facility Department ID 2022-04-21 Outpatient X [facility] ELIAN [id number] Univers 00:48:13 ity [facility] 2020-12-14 Emergency [facility] [id number] Univers 13:13:53 [facility] 2022-10-14 2022-10-14 Telephone Raffy KSCINDY 1.2.840.114 [id number] Univers 00:00:00 00:00:00 Yue Spangler [employer]REL [employer] [id number] i ty [facility] [id number] Armin as MATERNAL [id number] Med ical & CHILD [address] [place] [address] 2022-09-23 2022-09-23 Outpatient R RAFFY [facility] [id number] Univers 07:45:00 07:45:00 YUE remberto [facility] 2022-09-15 2022-09-15 Orders Doctor EVAN 1.2.840.114 [id number] Univers 00:00:00 00:00:00 Only Unassigned, COLT [id number] ity of [place] [facility] [id number] Armin as [id number] [facility] 009 Branch 2022-08-26 2022-08-29 Hospital EVAN Lal [id number] Univers 13:38:00 14:24:00 Encounter Josette GREGORY [id number] ity of [facility] [id number] [place] [id number] [facility] 134 Branch 2022-08-27 2022-08-28 Anesthesia Anders Dash 1 .2.840.114 [id number] Univers 07:10:00 01:11:00 Event Frederic Baugh COLT [id number] ity of [facility] [id number] Armin as [id number] [facility] 132 Branch 2022-08-25 2022-08-25 [facility] 1.2.840.114 [id number] Univers 15:00:00 15:00:00 Yue A [employer]REL PLANER [id number] ity of Visit [facility] [id number] Armin as MATERNAL [id number] Med ical & CHILD [address] [place] [address] 2022-08-25 2022-08-25 Outpatient Malinda XIONG KSCINDY [facility] [id number] Univers 15:00:00 14:19:03 YUE sr [facility] 2022-08-25 2022-08-25 Outpatient Malinda XIONG [facility] [id number] Univers 14:30:00 14:18:29 YUE sr [facility] 2022-08-21 2022-08-21 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 840.114 [id number] Univers 11:30:00 11:38:46 Visit Yue Xiong BARREL PLANER 350.1.13.1 0 ity of REGIONAL 4.2.7.2.686 Armin as MATERNAL [id number] [facility] & CHILD [address] [place] [address] 2022-08-20 2022-08-20 [facility] [id number] Univers 08:30:00 09:02:28 [facility] 2022-08-20 2022-08-[address] [facility] 1.2.840.114 104 [id number] Univers 08:30:00 09:02:28 Yue A BARREL PLANER 350.1.13.10 ity of Visit REGIONAL 4.2.7.2.686 Armin as MATERNAL [id number] [address] 2022-08-20 2022-08-[address] [facility] 1.2.840.114 1 [id number] Univers 00:00:00 00:00:00 Yue A BARREL PLANER 350.1.13.10 i ty of REGIONAL 4.2.7.2.686 Armin as MATERNAL [id number] [facility] & [address] 2022-08-17 2022-08-17 Out[facility] [id number] Univers 15:00:00 15:42:27 [facility] 2022-08-17 2022-08-[address] [facility] 1.2.840.114 104 [id number] Univers 15:00:00 15:42:27 Yue A BARREL PLANER 350.1.13.10 ity of Visit [facility] 4.2.7.2.686 Armin as MATERNAL [id number] [facility] & CHILD [address] [place] [address] 2022-08-13 2022-08-13 Outpatient Malinda XIONG [facility] [id number] Univers 09:45:00 10:40:14 YUE ity [facility] 2022-08-13 2022-08-13 [facility] 1.2.840.114 104 [id number] Univers 09:45:00 10:40:14 Yue A BARREL PLANER 350.1.13.10 ity of Visit [facility] 4.2.7.2.686 Armin as MATERNAL [id number] [facility] & [address] 2022-08-12 2022-08-12 Outpatient Malinda XIONG [facility] [id number] Univers 14:00:00 14:00:00 YUE ity [facility] 2022-08-11 2022-08-11 Telephone Shruthi Malik [facility] 1.2.840.114 [id number] Univers 00:00:00 00:00:00 BARREL PLANER 350.1.13.10 it y of REGIONAL 4.2.7.2.686 Armin as MATERNAL [id number] [facility] & CHILD [address] [place] [address] 2022-08-10 2022-08-10 Outpatient SHRUTHI RECIO [facility] [id number] Univers 14:15:00 15:46:47 ity [facility] 2022-08-10 2022-08-10 Routine Provider, [facility] 1 .2.840.114 [id number] Univers 14:15:00 15:46:47 AkinsiJulian jean baptiste C BARREL PLANER 350.1.13 .10 ity of Visit Shruthi Malik [facility] 4.2.7.2.686 [place] MATERNAL [id number] [facility] & CHILD [address] [place] [address] 2022-08-07 2022-08-07 Outpatient Malinda XIONG [facility] [id number] Univers 08:15:00 08:15:00 YUE [facility] 2022-08-06 2022-08-06 Coal Carrier 1, Karen-[facility] Room [facility] 1.2. 840.114 [id number] Univers 11:30:00 12:00:00 Visit Jaswinder Lora BARREL PLANER 350.1.13.10 ity of REGIONAL 4.2.7.2.686 Armin as MATERNAL [id number] [facility] & CHILD [address] [place] [address] 2022-08-06 2022-08-06 Outpatient P JASWINDER LORA [facility] [id number] Univers 11:30:00 11:30:00 JASWINDER LORA [facility] 2022-08-04 2022-08-04 [facility] 1.2.840.114 104 [id number] Univers 15:00:00 15:00:00 Yue A BARREL PLANER 350.1.13.10 ity of Visit REGIONAL 4.2.7.2.686 Armin as MATERNAL [id number] [address] 2022-08-04 2022-08-04 [facility] [id number] Univers 15:00:00 14:55:36 [facility] 2022-07-31 2022-07-31 Routine [facility] 1.2.795.018 [id number] Univers 14:45:00 14:45:00 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 350.1.13.10 ity of Visit [facility] 4.2.7.2.686 Armin as MATERNAL [id number] [address] 2022-07-31 2022-07-31 Outpatient P AKSHAT [facility] [id number] Univers 11:00:00 13:32:52 ANA [facility] 2022-07-31 2022-07-31 Coal Carrier 1, Pea-Mfm Us Room [facility] 1.2. 840.114 [id number] Univers 11:00:00 11:30:00 Visit Ana Bowman BARREL PLANER 350.1.13.10 ity of REGIONAL 4.2.7.2.686 Armin as MATERNAL [id number] [facility] ical & CHILD [address] [facility] 2022-07-31 2022-07-31 Telephone [facility] 1.2.840.114 10 [id number] Univers 00:00:00 00:00:00 Julian Maciel BARREL PLANER 350.1.13.10 ity of REGIONAL 4.2.7.2.686 Armin as MATERNAL [id number] [facility] & CHILD [address] [place] [address] 2022-07-28 2022-07-28 Outpatient R [facility] [id number] Univers 15:30:00 15:30:00 JULIAN shine [facility] 2022-07-27 2022-07-27 Outpatient R [facility] [id number] Univers 09:45:00 09:45:00 JULIAN shine [facility] 2022-07-24 2022-07-24 Coal Carrier [facility] Room [facility] 1.2. 840.114 [id number] Univers 11:00:00 12:22:23 Visit Esther Montes BARREL PLANER 350.1.13.10 ity of [facility] 4..7.2.686 Armin as MATERNAL [id number] [facility] & CHILD [address] [place] [address] 2022-07-24 2022-07-24 Outpatient P ESTHER MONTES [facility] [id number] Univers 11:00:00 11:00:00 ESTHER MONTES [facility] 2022-07-23 2022-07-23 Outpatient [facility] [id number] Univers 10:00:00 10:36:24 YUE [facility] 2022-07-23 2022-07-23 [facility] 1.2.840.114 103 [id number] Univers 10:00:00 10:36:24 Yue A BARREL PLANER 350.1.13.10 ity of Visit REGIONAL 4.2.7.2.686 Armin as MATERNAL [id number] [facility] & CHILD [address] [place] [address] 2022-07-20 2022-07-20 [address] [facility] 1.2.840.114 103 [id number] Univers 16:00:00 16:00:00 Yue A BARREL PLANER 350.1.13.10 ity of Visit REGIONAL 4.2.7.2.686 Armin as MATERNAL [id number] [facility] & CHILD [address] [place] [address] 2022-07-20 2022-07-20 Outpatient [facility] [id number] Univers 16:00:00 15:00:08 YUE [facility] 2022-07-16 2022-07-16 Outpatient R [facility] [id number] Univers 11:30:00 12:36:23 ANA [facility] 2022-07-16 2022-07-16 Coal Carrier 1, Art Room [facility] 1.2. 840.114 [id number] Univers 11:30:00 12:36:23 Visit Esther Montes BARREL PLANER 350.1.13.10 ity of Ana Bowman REGIONAL 4.2.7.2.686 [place] MATERNAL [id number] [facility] & CHILD [address] [facility] 2022-07-16 2022-07-16 Routine [facility] 1.2.840.114 [id number] Univers 09:45:00 10:37:13 Aleshia A BARREL PLANER 350.1.13.10 ity of Visit REGIONAL 4.2.7.2.686 Armin as MATERNAL [id number] [facility] & CHILD [address] [facility] 2022-07-16 2022-07-16 Outpatient R [facility] [id number] Univers 09:30:00 09:30:00 [facility] 2022-07-15 2022-07-15 Outpatient X ADUM, [facility] ELIAN [id number] Univers 11:55:00 14:55:00 [facility] 2022-07-15 2022-07-15 Emergency Ad, [facility] 1.2.929.072 [id number] Univers 11:55:00 14:55:00 [place] L JEOVANNY 350.1.13.10 ity [facility] 4.2.7.2.686 [facility] [id number] [facility] [address] 2022-07-15 2022-07-15 Nurse EVAN Marquez 1.2.840.114 [id number] Univers 00:00:00 00:00:00 Triage Kimberly GREGORY 350.1.13.10 it y of [facility] 4.2.7.2.686 Armin as [id number] [facility] [address] 2022-07-14 2022-07-14 Outpatient R RAFFY [facility] [id number] Univers 08:30:00 08:30:00 YUE ity [facility] 2022-07-13 2022-07-13 Telephone Raffy [facility] 1.2.840.114 1 [id number] Univers 00:00:00 00:00:00 Yue A BARREL PLANER 350.1.13.10 i ty of REGIONAL 4.2.7.2.686 Armin as MATERNAL [id number] Med ical & CHILD [address] [place] [address] 2022-07-12 2022-07-12 Patient Raffy [facility] 1.2.840.114 103 [id number] Univers 00:00:00 00:00:00 Secure Msg Yue A BARREL PLANER 350.1.13.10 ity of [facility] 4.2.7.2.686 Armin as MATERNAL [id number] Med ical & CHILD 107 [facility] 2022-07-10 2022-07-10 Outpatient R RAFFY [facility] [id number] Univers 09:00:00 09:33:46 YUE ity [facility] 2022-07-10 2022-07-10 [address] [facility] 1.2.840.114 103 [id number] Univers 09:00:00 09:33:46 Yue A BARREL PLANER 350.1.13.10 ity of Visit [facility] 4.2.7.2.686 Armin as MATERNAL [id number] Med ical & CHILD 107 [facility] 2022-07-09 2022-07-09 Coal Carrier 2, [facility] Usg Room [facility] 1 .2.840.114 [id number] Univers 13:00:00 14:05:34 Visit Yolanda Bowdenis Tripp [facility] 350.1.13. 10 ity of [facility] 4.2.7.2.686 [place] [id number] [address] 2022-07-09 2022-07-09 Outpatient P KAL [facility] [id number] Univers 13:00:00 13:00:00 IGLESIA [facility] 2022-07-08 2022-07-08 [facility] 1.2.840.114 103 [id number] Univers 10:30:00 10:30:00 Yue A BARREL PLANER 350.1.13.10 ity of Visit [facility] 4.2.7.2.686 Armin as MATERNAL [id number] [facility] & CHILD [address] [place] [address] 2022-07-08 2022-07-08 Outpatient [facility] [id number] Univers 10:30:00 10:05:35 [facility] 2022-07-08 2022-07-08 [address] [facility] 1.2.840.114 1 [id number] Univers 00:00:00 00:00:00 Yue A BARREL PLANER 350.1.13.10 i ty of REGIONAL 4.2.7.2.686 Armin as MATERNAL [id number] [facility] & CHILD [address] [place] [address] 2022-07-02 2022-07-02 Case [facility] 1.2.840.114 103 [id number] Univers 00:00:00 00:00:00 Management Yue A BARREL PLANER 350.1.13.10 ity of [facility] 4.2.7.2.686 Armin as MATERNAL [id number] [facility] & CHILD [address] [place] [address] 2022-07-01 2022-07-01 Coal Carrier Ultrasound, [facility] 1.2 .840.114 [id number] Univers 15:30:00 16:04:22 Visit Esther Montes BARREL PLANER 350.1.13.10 ity of REGIONAL 4.2.7.2.686 Armin as MATERNAL [id number] Med ical & CHILD 369 [facility] 2022-07-01 2022-07-01 Outpatient P VIVIEN MONTESEETA [facility] [id number] Univers 15:30:00 15:30:00 VIVIEN MONTESEETA [facility] 2022-06-24 2022-06-24 [facility] [id number] Univers 10:15:00 10:54:05 YUE ity [facility] 2022-06-24 2022-06-24 [facility] 1.2.840.114 102 [id number] Univers 10:15:00 10:54:05 Yue A BARREL PLANER 350.1.13.10 ity of Visit REGIONAL 4.2.7.2.686 Armin as MATERNAL [id number] [facility] & CHILD [address] [place] [address] 2022-06-10 2022-06-10 [facility] [id number] Univers 15:30:00 16:27:05 YUE [facility] 2022-06-10 2022-06-10 [facility]ine [facility] 1.2.840.114 102 [id number] Univers 15:30:00 16:27:05 Yue A BARREL PLANER 350.1.13.10 ity of Visit REGIONAL 4.2.7.2.686 Armin as MATERNAL [id number] [facility] & CHILD [address] [place] [address] 2022-06-09 2022-06-09 Outpatient [facility] [id number] Univers 11:00:00 11:00:00 YUE [facility] 2022-06-08 2022-06-08 [facility] 1.2.840.114 [id number] Univers 00:00:00 00:00:00 Anna BARREL PLANER 350.1.13.10 it y of REGIONAL 4.2.7.2.686 Armin as MATERNAL [id number] [facility] ical & CHILD [address] [place] [address] 2022-06-07 2022-06-07 Refelia Mccoy [facility] 1.2.840.114 [id number] Univers 00:00:00 00:00:00 Anna BARREL PLANER 350.1.13.10 it y of [facility] 4.2.7.2.686 Armin as MATERNAL [id number] Med ical & CHILD 107 [facility] 2022-06-05 2022-06-05 Emergency X [facility] E[facility] [id number] Univers 13:26:00 13:55:00 GINA ity of [facility] 2022-06-05 2022-06-05 Emergency [facility] 1.2.840.114 10 [id number] Univers 13:26:00 13:55:00 Gina UP 350.1.13.10 ity of [place].2.7.2.686 [place] [id number] [facility] [address] 2022-06-04 2022-06-04 Orders Doctor EVAN 1.2.840.114 [id number] Univers 00:00:00 00:00:00 Only Unassigned, COLT 350.1.13.10 ity of [place] [facility] 4.2.7.2.686 Armin as [id number] [facility] [address] 2022-06-04 2022-06-04 Telephone Qing Morley [facility] 1.2.840.114 10 [id number] Univers 00:00:00 00:00:00 [place] UP 350.1.13.10 i ty of [place].7.2.[place] [id number] Dc dical NAL 134 [facility] 2022-06-03 2022-06-03 Patient Raffy [facility] 1.2.840.114 102 [id number] Univers 00:00:00 00:00:00 Secure Msg Yue Spangler 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 1.2.840.11 4 [id number] Univers 00:00:00 00:00:00 Harleen hoyos 350.1.13.[address] [facility] 4.2.7.2.686 [facility] [id number] [facility] [address] 2022-05-30 2022-05-30 Outpatient X HARLEEN MILES [facility] O BY [id number] Univers 14:06:00 16:15:00 LISA MILESL ity [facility] 2022-05-30 2022-05-30 [facility] 1.2.840.114 [id number] Univers 14:06:00 16:15:00 Harleen hoyos [facility] 350.1.13.10 ity of [place] 4.2.7.2.686 [facility] [id number] [place] [address]503 [place] 2022-05-20 2022-05-20 Outpatient R RAFFY [facility] [id number] Univers 07:45:00 08:15:47 YUE ity [facility] 2022-05-20 2022-05-20 Routine [facility] 1.2.840.114 102 [id number] Univers 07:45:00 08:15:47 Yue A BARREL PLANER 350.1.13.10 ity of Visit REGIONAL 4.2.7.2.686 Armin as MATERNAL [id number] [facility] & CHILD [address] [place] [address] 2022-05-20 2022-05-20 Letter [facility] 1.2.840.114 102 [id number] Univers 00:00:00 00:00:00 (Out) Yue A BARREL PLANER 350.1.13.10 i ty of REGIONAL 4.2.7.2.686 Armin as MATERNAL [id number] [facility] & CHILD [address] [place] [address] 2022-05-14 2022-05-14 Outpatient R QING MORLEY [facility] [id number] Univers 13:00:00 13:00:00 ity [facility] 2022-05-11 2022-05-11 Telephone Qing Morley [facility] 1.2.840.114 10 [id number] Univers 00:00:00 00:00:00 [place] UP 350.1.13.10 i ty of [place] [id number] Dc dical NAL 134 [facility] 2022-05-08 2022-05-08 Telephone Qing Morley KSCINDY 1.2.840.114 10 [id number] Univers 00:00:00 00:00:00 [place] UP 350.1.13.10 i ty of [place] 4[place]2.7.2.[place] [id number] Dc dical [address] 2022-05-07 2022-05-07 Coal Carrier Ultrasound, [facility] 1. .840.114 [id number] Univers 08:00:00 08:52:53 Visit Jaswinder Lora BARREL PLANER 350.1.13.10 ity of [facility] 4.2.7.2.686 Armin as MATERNAL [id number] [facility] ical & CHILD [address] [place] [address] 2022-05-07 2022-05-07 Outpatient P JASWINDER LORA [facility] [id number] Univers 08:00:00 08:00:00 JASWINDER LORA [facility] 2022-04-20 2022-04-21 Outpatient X QING MORLEY [facility] ELIAN [id number] Univers 22:48:00 00:42:00 ity [facility] 2022-04-20 2022-04-21 Emergency Qing Morley [facility] 1..840.114 10 [id number] Univers 22:48:00 00:42:00 [place] [facility] 350.1.13.10 i ty [place].2.[place] [id number] [address] 2022-04-20 2022-04-20 Outpatient R [facility] [id number] Univers 15:00:00 15:00:00 ity [facility] 2022-04-20 2022-04-20 Telephone Qing Morley [facility] 1..840.114 10 [id number] Univers 00:00:00 00:00:00 [place] UP 350.1.13.10 i ty of [place] 4[place].7.2.[place] [id number] Dc dical NAL [address] [place] [address] 2022-04-20 2022-04-20 Patient Qing Morley [facility] 1.2.883.139 [id number] Univers 00:00:00 00:00:00 Secure Msg [place] JEOVANNY 350.1.13.10 ity of [place] 4[place].7.2.686 [place] [id number] Dc dical NAL [address] [place] [address] 2022-04-16 2022-04-16 Outpatient R JULIET [facility] [id number] Univers 10:45:00 11:03:05 PARVEZ ity of [facility] 2022-04-16 2022-04-16 Routine [facility] 1.2.324.060 [id number] Univers 10:45:00 11:03:05 Parvez UP 350.1.13.10 ity of Visit [place].7.2.[place] [id number] Dc dical NAL [address] [place] [address] 2022-04-16 2022-04-16 Telephone [facility]haratmather hospitalmariposaDR[facility] 1.2.840.114 10 [id number] Univers 00:00:00 00:00:00 Parvez UP 350.1.13.10 i ty of [place].2.[place] [phone] Dc dical [address] 2022-04-16 2022-04-16 Orders Qing Morley 1.2.623.098 [id number] Univers 00:00:00 00:00:00 Only [place] COLT 350.1.13.10 it y of HOSPITAL 4.2.7.2.686 Armin as [id number] [address] 2022-04-15 2022-04-15 Outpatient P [facility] [id number] Univers 11:00:00 11:00:00 ity of [facility] 2022-03-30 2022-03-30 Telephone Qing Morley [facility] 1.2.840.114 10 [id number] Univers 00:00:00 00:00:00 Cam [place] 350.1.13.10 i ty of [place].7.2.[place] [id number] Dc dical NAL 134 [facility] 2022-03-30 2022-03-30 Telephone Morley Qing [facility] 1.2.840.114 10 [id number] Univers 00:00:00 00:00:00 Cam [place] 350.1.13.10 i ty of [place] 4[place]2.7.2.686 [place] 355.2884955 Dc dical NAL 134 [facility] 2022-03-24 2022-03-24 Outpatient R NARENDRA [facility] [id number] Univers 12:45:00 12:45:00 JULIAN sr o f [facility] 2022-03-20 2022-03-20 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 353 [facility] 2022-03-20 2022-03-20 Outpatient R QING MORLEY [facility] [id number] Univers 11:00:00 11:00:00 ity of [facility] 2022-03-20 2022-03-20 Orders Doctor GORDON 1.2.840.114 [id number] Univers 00:00:00 00:00:00 Only Unassigned, COLT 350.1.13.10 ity of [place] [facility] 4.2.7.2.686 Armin as [id number] [address] 2022-03-19 2022-03-19 Outpatient R QING MORLEY [facility] [id number] Univers 14:00:00 15:23:42 ity of [facility] 2022-03-19 2022-03-19 Initial Qing Morley [facility] 1.2.723.228 [id number] Univers 14:00:00 15:23:42 Cam [place] 350.1.13.10 ity of Visit [place] [id number] Dc dical NAL [address] [place] [address] 2022-03-16 2022-03-16 Patient Qing Morley [facility] 1.2.444.112 [id number] Univers 00:00:00 00:00:00 Secure Msg [facility] 350.1.13.10 ity of [place].2.[place] 493.4688604 Dc dic[address] 2022-03-04 2022-03-04 Outpatient R QING MORLEY [facility] [id number] Univers 10:00:00 10:00:00 ity of [facility] 2022-02-26 2022-02-26 [facility] 1.2.840.114 [id number] Univers 00:00:00 00:00:00 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 350.1.13.10 ity of [place] 4.2.7.2.686 Armin as MATERNAL 418.0500338 Med ical & CHILD [address] [place] [address] 2022-02-26 2022-02-26 Patient [facility] 1.2.454.185 [id number] Univers 00:00:00 00:00:00 Secure Msg 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 350.1.13.10 ity of [facility] 4.2.7.2.686 Armin as MATERNAL [id number] Med ical & CHILD [address] [place] [address] 2022-02-24 2022-02-24 [facility] [id number] Univers 14:00:00 14:50:28 JULIAN ity o f [facility] 2022-02-24 2022-02-24 Routine [facility] 1.2.540.015 [id number] Univers 14:00:00 14:50:28 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 350.1.13.10 ity of Visit [facility] 4.2.7.2.686 Armin as MATERNAL [phone] [facility] & CHILD [address] [place] [address] 2022-02-16 2022-02-16 Outpatient [facility] [id number] Univers 10:30:00 10:30:00 JULIAN ity o f [facility] 2022-01-31 2022-01-31 Nurse EVAN Oropeza 1.2.840.114 [id number] Univers 00:00:00 00:00:00 Triage Rach GREGORY 350.1.13.10 ity of [facility] 4.2.7.2.686 Armin as [phone] [facility] [address] 2022-01-29 2022-01-29 [facility] 1.2.840.114 [id number] Univers 00:00:00 00:00:00 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 350.1.13.10 ity of [facility] 4.2.7.2.686 Armin as MATERNAL [phone] Med ical & CHILD [address] [place] [address] 2022-01-29 2022-01-29 Patient SHIRLEY Mccoy 1.2.253.567 [id number] Univers 00:00:00 00:00:00 Secure Msg [facility] 350.1.13.10 ity of [facility] [phone] [facility] [address] 2022-01-19 2022-01-19 [facility] 1.2.415.729 [id number] Univers 00:00:00 00:00:00 Secure Msg Julian Maciel [employer] 350.1.13.10 ity of [facility] 4.2.7.2.686 Armin as MATERNAL [phone] [facility] & CHILD [address] [place] [address] 2022-01-17 2022-01-17 Outpatient R [facility] [id number] Univers 10:30:00 11:46:56 ANNA ity of [facility] 2022-01-17 2022-01-17 Initial Provider, Tamiko Dhaliwal [facility] 1 .2.840.114 [id number] Univers 10:30:00 11:46:56 Anna Mccoy [employer] 350.1.13.10 ity of Visit REGIONAL 4.2.7.2.686 Armin as MATERNAL [phone] [facility] ical & CHILD [address] [place] [address] 2022-01-17 2022-01-17 Orders Doctor EVAN 1.2.840.114 [id number] Univers 00:00:00 00:00:00 Only Unassigned, COLT 350.1.13.10 ity of [place] [facility] 4.2.7.2.686 Armin as [phone] [facility] [address] 2021-02-01 2021-02-01 Telephone [facility] 1.2.840.114 [id number] Univers 00:00:00 00:00:00 Rania HEALTH 350.1.13.10 it y of [place] 4.2.7.2.686 Armin as OMER?BLEA [phone] [address] MEDICAL OFFICE BUILDING 2021-01-31 2021-01-31 Telephone EVAN Kwong 1.2.679.120 [id number] Univers 00:00:00 00:00:00 Shaniqua GREGORY 350.1.13.10 ity of [facility] 4.2.7.2.686 Armin as [phone] [address] 2021-01-30 2021-01-30 Outpatient R JAYLYN [facility] [facility] [id number] Univers 14:00:00 14:30:12 RANIA ity [facility] 2021-01-30 2021-01-30 Urgent [facility] 1.2.840.114 [id number] Univers 14:00:00 14:20:00 Care Rania [facility] 350.1.13.10 it y of [place] 4.2.7.2.686 Armin as OMER?BLEA [id number] [address] MEDICAL OFFICE [facility] 2020-07-26 2020-07-26 Outpatient R QING [facility] [id number] Univers 15:00:00 15:00:00 ity of [facility] 2020-07-24 2020-07-24 Telephone Qing Morley [facility] 1.2.840.114 [id number] 00:00:00 00:00:00 Cam Jeovanny 350.1.13.10 [place] 4.2.7.2.686 Professio [phone] [address] 2020-07-24 2020-07-24 Telephone Qing Morley [facility] 1.2.840.114 [id number] Univers 00:00:00 00:00:00 [place] 350.1.13.10 i ty of [place]7.2.[place] [phone] Me dical [address] 2020-02-11 2020-02-11 Emergency [facility] [id number] [facility] 13:37:00 15:17:00 Samia Ruano Jeovanny 350.1.13.10 ity of [place]2.7.2.686 [place] [phone] [address] 2020-02-11 2020-02-11 Emergency [facility] [id number] 13:37:00 15:17:00 Samia Ruano Jeovanny 350.1.13.10 [place] 4.2.7.2.686 [place] [phone] [facility] 2020-02-11 2020-02-11 Orders Doctor EVAN 1.2.840.114 [id number] Univers 00:00:00 00:00:00 Only Unassigned, COLT 350.1.13.10 ity of [place] [facility] 4.2.7.2.686 Armin as [phone] [facility] [address] [place] 2020-02-11 2020-02-11 Orders Doctor EVAN 1.2.840.114 [id number] 00:00:00 00:00:00 Only Unassigned, COLT 350.1.13.10 [place] [facility] 4.2.7.2.686 [id number] Results Test Description Test Time Test [...] 32.9 g/dL 31.6-35.1 RDW-SD (test code = 26391-4) 47.0 fL 39.0-49.9 RDW-CV (test code = 788-0) 16.9 % 12.0-15.5 H PLT (test code = 777-3) 205 See_Comment [Au tomated message] The system which DIIME nerated this result transmit jaden reference range: 166 - 35 8 10*3/?L. The reference range was not used to interpret th is result as normal/abnormal . MPV (test code = 24392-1) 11.2 fL 9.5-12.9 NRBC/100 WBC (test code = 0.0 See_Comment [ Automated message] The 1962467484) system which DIIME nerated this result transmit jaden reference range: 0.0 - 10 .0 /100 WBCs. The reference r sheng was not used to interpr et this result as normal/abnor mal. NRBC x10^3 (test code = See_Comment [Au tomated message] The 2049230912) system which DIIME nerated this result transmit jaden reference range: 10*3/?L. The reference range was not u sed to interpret this result as normal/abnormal . GRAN MAT (NEUT) % (test code 86.4 % = 770-8) IMM GRAN % (test code = 0.90 % 8242418463) LYMPH % (test code = 736-9) 3.2 % MONO % (test code = 5905-5) 9.3 % EOS % (test code = 713-8) 0.0 % BASO % (test code = 706-2) 0.2 % GRAN MAT x10^3(ANC) (test 28.52 10*3/uL 1.88-7.09 H code = 6813494459) IMM GRAN x10^3 (test code = 0.30 10*3/uL 0.00-0.06 H 1465985663) LYMPH x10^3 (test code = 1.06 10*3/uL 1.32-3.29 L 731-0) MONO x10^3 (test code = 3.06 10*3/uL 0.33-0.92 H 742-7) EOS x10^3 (test code = 0.03-0.39 L 711-2) BASO x10^3 (test code = 0.05 10*3/uL 0.01-0.07 704-7) BANDS (test code = Increased A 2738210524) Lab Interpretation (test Abnormal code = 12060-7) [facility] IMMUNE [id number] 05:55:59 Test Item Value Reference Range Interpretation Comments RHIG CANDIDATE? No- see comment Patient i s not a (test code = candidate for R hIg- 5188) Patient is Rh Positive.Perfor med at [facility] Laboratory Services - [facility] Blood [address] [place] [address] [id number] Free: [phone] A No. [id number] [facility] [id number] 04:37:25 Test Item Value Reference Range Interpretation Comments BASE EXCESS, CORD -9.1 mEq/L QUES (test code = 1628927827) AC PH, CORD (BEAKER) 7.21 7.18-7.38 (test code = 1842484867) PC02, CORD (test code 48 See_Comment [Auto mated message] The = 9523236561) system which g enerated this result transmit jaden reference range : 32 - 66 mmHg. The refer ence range was not used to interpret this result as normal/abnormal . PO2, CORD (test code 16 See_Comment [Autom ated message] The = 6736610084) system which g enerated this result transmit jaden reference range : 10 - 30 mmHg. The refer ence range was not used to interpret this result as normal/abnormal . BICARBONATE, CORD 19 See_Comment [Automate d message] The (test code = system which ge nerated this 2307113524) result transmit jaden reference range : 17 - 27 mEq/L. The refe rence range was not used to interpret this result as normal/abnormal . [facility] [id number] 04:37:15 Test Item Value Reference Range Interpretation Comments VENOUS BASE EXCESS, -9.4 mEq/L CORD (test code = 9166496096) VENOUS PH, CORD (test 7.28 7.25-7.45 code = 4365531757) VENOUS PC02, CORD 36 See_Comment [Automate d message] The (test code = system which ge nerated 9971736669) this result tra nsmitted reference range : 27 - 49 mmHg. The refer ence range was not used to interpret this result as normal/abnormal . VENOUS PO2, CORD (test 26 See_Comment [Aut omated message] The code = 6878774538) system [facility] generated this result tra nsmitted reference range : 17 - 41 mmHg. The refer ence range was not used to interpret this result as normal/abnormal . VENOUS BICARBONATE, 16 See_Comment [Automa jaden message] The CORD (test code = system whi ch generated 0835875638) this result tra nsmitted reference range : 12 - 29 mEq/L. The refe rence range was not used to interpret this result as normal/abnormal . [facility] ONLY - SYPHILIS [id number] 14:35:45 Test Item Value Reference Range Interpretation Comments Syphilis IgG/IgM (test Non-reactive Non-reactive code = 69762-8) IGNACIA (test code = IGNACIA) Non-reactive - No serologic evidence of T. pallidum infection. Cannot exclude incubating or early syphilis. Submit a second specimen in 2-4 weeks if syphilis is clinically suspected. Equivocal - Further testing to follow. Reactive - Further testing to follow. Lab Interpretation (test Normal code = 81132-5) [facility] Surface [id number] 21:44:14 Test Item Value Reference Range Interpretation Comments HBsAg Semi-Quantitative (test code = 0.04 Negative 5195-3) [facility] and Screen - ONCE [id number] 20:36:00 Test Item Value Reference Range Interpretation Comments ABO & RH (test code = 20) O POSITIVE IAT (test code = 1185) Negative General acute hospital URINALYSIS W SPECIFIC [id number] 18:49:00 Test Item Value Reference Range Interpretation [...] POCT U APPEAR (test code = 3267) General acute hospital URINALYSIS W SPECIFIC [id number] 18:44:00 Test Item Value Reference Range Interpretation [...] POCT U APPEAR (test code = 3267) General acute hospital URINALYSIS W SPECIFIC [id number] 13:20:00 Test Item Value Reference Range Interpretation [...] . Lab Interpretation (test code = Abnormal 58088-1) General acute hospital URINALYSIS W SPECIFIC [id number] 13:20:00 Test Item Value Reference Range Interpretation [...] . Lab Interpretation (test code = Abnormal 21261-8) General acute hospital URINALYSIS W SPECIFIC [id number] 20:05:00 Test Item Value Reference Range Interpretation [...] POCT U APPEAR (test code = 3267) General acute hospital URINALYSIS W SPECIFIC [id number] 14:56:00 Test Item Value Reference Range Interpretation [...] . Lab Interpretation (test code = Abnormal 92898-2) General acute hospital URINALYSIS W SPECIFIC [id number] 14:56:00 Test Item Value Reference Range Interpretation [...] . Lab Interpretation (test code = Abnormal 64313-2) General acute hospital URINALYSIS W SPECIFIC [id number] 19:34:00 Test Item Value Reference Range Interpretation [...] POCT U APPEAR (test code = 3267) General acute hospital URINALYSIS W SPECIFIC [id number] 19:32:00 Test Item Value Reference Range Interpretation [...] . Lab Interpretation (test code = Abnormal 46554-2) General acute hospital URINALYSIS W SPECIFIC [id number] 17:56:00 Test Item Value Reference Range Interpretation [...] POCT U APPEAR (test code = 3267) General acute hospital URINALYSIS W SPECIFIC [id number] 14:55:00 Test Item Value Reference Range Interpretation [...] POCT U APPEAR (test code = 3267) General acute hospital URINALYSIS W SPECIFIC [id number] 19:12:00 Test Item Value Reference Range Interpretation [...] U APPEAR (test code = 3267) . General acute hospital URINALYSIS W SPECIFIC [id number] 19:12:00 Test Item Value Reference Range Interpretation [...] U APPEAR (test code = 3267) . General acute hospital URINALYSIS W SPECIFIC [id number] 14:42:00 Test Item Value Reference Range Interpretation [...] U APPEAR (test code = 3267) clear General acute hospital URINALYSIS W SPECIFIC [id number] 14:02:00 Test Item Value Reference Range Interpretation [...] U APPEAR (test code = 3267) .. General acute hospital URINALYSIS W SPECIFIC [id number] 14:27:00 Test Item Value Reference Range Interpretation [...] POCT U APPEAR (test code = 3267) [facility] SYPHILIS [id number] 15:23:03 Test Item Value Reference Range Interpretation Comments Syphilis IgG/IgM (test Non-reactive Non-reactive code = 81641-4) IGNACIA (test code = IGNACIA) Non-reactive - No serologic evidence of T. pallidum infection. Cannot exclude incubating or early syphilis. Submit a second specimen in 2-4 weeks if syphilis is clinically suspected. Equivocal - Further testing to follow. Reactive - Further testing to follow. Lab Interpretation (test Normal code = 68737-9) [facility] 1/2 AG-AB WITH [id number] 05:34:40 Test Item Value Reference Range Interpretation Comments HIV 0.07 Negative Semi-quantitative (test code = 85443-5) IGNACIA (test code = Non-reactive for HIV-1 IGNACIA) antigen and HIV-1/HIV-2 antibodies. ?No laboratory evidence of HIV infection. ?Repeat in 2-4 weeks if acute HIV infection is suspected. [facility] SPECIFIC [id number] 15:26:00 Test Item Value Reference Range Interpretation [...] POCT U APPEAR (test code = 3267) General acute hospital URINALYSIS W SPECIFIC [id number] 21:11:00 Test Item Value Reference Range Interpretation [...] POCT U APPEAR (test code = 3267) General acute hospital URINALYSIS W SPECIFIC [id number] 12:59:00 Test Item Value Reference Range Interpretation [...] U APPEAR (test code = 3267) . [facility]UM SCREEN [id number] 10:00:00 Test Item Value Reference Range Interpretation Comments INTERPRETATION:-Q SEE NOTE Screen ne gative for (test code = open NTD. 66495-0) MSAFP RISK OPEN <1 IN 5000 NTD-Q (test code = 26303-6) $MSAFP-Q (test 44.2 ng/mL code = 1834-1) ADJ MULTIPLE OF 0.74 MEDIAN-Q (test code = 75233-4) -Q (test code = See Below This is a s creening 8251-1) test, not a shira gnostic test. Thisrisk assessment repo rt is based in part o n demographicdata provided by the ordering physic kelly. Please notifyth e laboratory prom ptly if any data are in correct. Forassistance w ith recalculations, please call your local [facility] lab oratory. For assistance withinterpretat ion of these results, please contact [facility] al [employer] gen etic counselor or [id number] [facility]([phone]). Inte rpretive CutoffsScreen P ositive for Open [...] GESTATIONAL AGE-Q 20.1 weeks (test code = 42573-0) MATERNAL WEIGHT-Q 159 lbs (test code = 3142-7) EST'D DATE OF 09/02/2022 DELIVERY-Q (test code = 15759-6) LAVONNE DETERMINED LMP BY-Q (test code = 76520-7) MOTHER'S ETHNIC ORIGIN-Q (test SENEGALESE code = 88090-3) NUMBER OF 1 FETUSES-Q (test code = 90735-2) INSULIN-DEPEND NO DIABETIC-Q (test code = 30858-1) REPEAT SPECIMEN-Q NO (test code = 96047-8) HX OF NEURAL TUBE NO DEFECTS-Q (test code = 52365-9) PREV NO DOWN SYND-Q (test code = 19451-6) DONOR EGG-Q (test NO code = 93151-1) DONOR AGE: EGG NOT GIVEN RETRIEVAL-Q (test code = 37278-8) IGNACIA (test code = PERFORMED BY IGNACIA) [facility]; [address] [place] [address]; MULUGETA KINGSTON MD General acute hospital URINALYSIS W/O SPECIFIC [id number] 16:48:00 Test Item Value Reference Range Interpretation [...] code = 3257) n/a Negative - Negative General acute hospital URINALYSIS W/O SPECIFIC [id number] 20:31:00 Test Item Value Reference Range Interpretation [...] code = 3257) negative Negative - Negative General acute hospital URINALYSIS W SPECIFIC [id number] 20:01:00 Test Item Value Reference Range Interpretation [...] U APPEAR (test code = 3267) . General acute hospital URINALYSIS W SPECIFIC [id number] 20:01:00 Test Item Value Reference Range Interpretation [...] U APPEAR (test code = 3267) . General acute hospital [id number] 16:39:00 Test Item Value Reference Range Interpretation Comments POCT PREG (test code = 1605) Positive On board controls acceptable with C Yes Line (test code = 3574) POCT PREG LOT # (test code = 3575) POCT PREG TEST DATE (test code = 3576) General acute hospital URINALYSIS W/O SPECIFIC [id number] 16:39:00 Test Item Value Reference Range Interpretation [...] code = 3257) negative Negative - Negative General acute hospital [id number] 16:39:00 Test Item Value Reference Range Interpretation Comments POCT PREG (test code = 1605) Positive On board controls acceptable with C Yes Line (test code = 3574) POCT PREG LOT # (test code = 3575) POCT PREG TEST DATE (test code = 3576) General acute hospital URINALYSIS W/O SPECIFIC [id number] 16:39:00 Test Item Value Reference Range Interpretation [...] code = 3257) negative Negative - Negative General acute hospital [id number] 16:39:00 Test Item Value Reference Range Interpretation Comments POCT PREG (test code = 1605) Positive On board controls acceptable with C Yes Line (test code = 3574) POCT PREG LOT # (test code = 3575) POCT PREG TEST DATE (test code = 3576) General acute hospital URINALYSIS W/O SPECIFIC [id number] 16:39:00 Test Item Value Reference Range Interpretation [...] code = 3257) negative Negative - Negative General acute hospital [id number] 16:39:00 Test Item Value Reference Range Interpretation Comments POCT PREG (test code = 1605) Positive On board controls acceptable with C Yes Line (test code = 3574) POCT PREG LOT # (test code = 3575) POCT PREG TEST DATE (test code = 3576) General acute hospital URINALYSIS W/O SPECIFIC [id number] 16:39:00 Test Item Value Reference Range Interpretation [...] code = 3257) negative Negative - Negative General acute hospital MOLECULAR [id number] 20:25:03 Test Item Value Reference Range Interpretation Comments POCT Molecular FluA (test code = Negative Negative 71264-1) POCT Molecular FluB (test code = Negative Negative 79063-9) Lab Interpretation (test code = Normal 49897-2) General acute hospital MOLECULAR [id number] 20:18:15 Test Item Value Reference Range Interpretation Comments POCT Molecular Strep (test code = Negative Negative 53484-9) Lab Interpretation (test code = Normal 47324-0) General acute hospital [id number] 20:10:00 Test Item Value Reference Range Interpretation Comments POCT PREG (test code = 1605) negative On board controls acceptable with positive C Line (test code = 3574) POCT PREG LOT # (test code = 3575) [id number] POCT PREG TEST DATE (test 06-14-2021 code = 3576) Lab Interpretation (test code = Normal 17229-1) [facility]
[2022-12-02 08:37] LABS: Specific Gravity 1.021 (1.005-1.030)
[2022-12-02 09:03] LABS: Specific Gravity 1.021 (1.005-1.030); Urine Bacteria 20-50 /HPF (<20); Urine Bilirubin NEGATIVE (Negative); Urine Blood 2+ (Negative); Urine Clarity Extremely Turbid (Clear); Urine Color Light-Yellow (Yellow); Urine Glucose NEGATIVE (Negative); Urine Mucus Slight /HPF (None Seen); Urine Protein TRACE (Negative); Urine Urobilinogen Normal (Normal)
--- NOTE | 2022-12-02 10:00 | EDPHYS ---
Physician Documentation [facility] Name: Roberto Carlos Mcdermott Age: 22 yrs Sex: Female : 2000 Arrival Date: 12/02/2022 Time: 07:53 Bed DIS4 Private MD: ED Physician Chad Workman HPI: 12/02 09:38 This 22 yrs old Black Female presents to ER via Ambulatory with complaints of Abdominal kb Pain. 09:38 The patient presents with urinary symptoms, dysuria, frequency, vaginal discharge. kb Onset: The symptoms/episode began/occurred 1 week(s) ago. Modifying factors: The symptoms are alleviated by nothing, the symptoms are aggravated by nothing. 09:39 Associated signs and symptoms: Pertinent positives: dysuria, urinary frequency, vaginal kb discharge. Severity of symptoms: At their worst the symptoms were mild, moderate, in the emergency department the symptoms are unchanged. The patient has not experienced similar symptoms in the past. The patient has not recently seen a physician. 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 - Social history:: Smoking status: Patient denies any tobacco usage or history of. ROS: 09:36 Constitutional: Negative for fever, chills, and weight loss, kb 09:36 Abdomen/GI: Positive for abdominal pain, 09:36 : Positive for urinary frequency, small amounts, burning with urination, vaginal discharge, 09:36 All other systems are negative, Exam: 09:36 Constitutional: This is a well developed, well nourished patient who is awake, alert, kb and in no acute distress. Head/Face: Normocephalic, atraumatic. ENT: Moist Mucous membranes Cardiovascular: Regular rate Respiratory: Respirations even and unlabored. No increased work of breathing. Talking in full sentences Skin: Warm, dry with normal turgor. Normal color. MS/ Extremity: Pulses equal, no cyanosis. Neurovascular intact. Full, normal range of motion. Neuro: Awake and alert, GCS 15, oriented to person, place, time, and situation. Moves all extremities. Normal gait. 09:36 Abdomen/GI: Inspection: abdomen appears normal, Bowel sounds: normal, Palpation: soft, in all quadrants, mild abdominal tenderness, in the suprapubic area, 09:38 : Pelvic Exam: External exam: is normal, Speculum exam: no cervicitis, os that is kb closed, discharge, malodorous, the nurse was present for the exam, Vital Signs: 08:15 BP 150 / 106; Pulse 88; Resp 18; Temp 98.5(O); Pulse Ox 100% on R/A; Weight 72.57 kg; db Height 5 ft. 5 in. ; 10:20 BP 144 / 99; Pulse 57; Resp 16; Pulse Ox 99% on R/A; db 08:15 Body Mass Index 26.63 (72.57 kg, 165.1 cm) db 08:15 MOM CRYING WORRIED ABOUT BABY WHO IS ALSO PT. WILL RECHECK BP db MDM: 08:02 Patient medically screened. kb 09:37 Differential diagnosis: non-specific abd pain, urinary tract infection, bacterial kb vaginosis, STI. Data reviewed: vital signs, nurses notes. Counseling: I had a detailed discussion with the patient and/or guardian regarding the historical points, exam findings, and any diagnostic results supporting the discharge/admit diagnosis, lab results, the need for outpatient follow up, an OB/Gyne specialist, to return to the emergency department if symptoms worsen or persist or if there are any questions or concerns that arise at home. 12/02 08:08 Order name: Test, Urine; Complete Time: 08:45 kb 12/02 08:08 Order name: Urinalysis w/ reflexes; Complete Time: 09:05 kb 12/02 08:34 Order name: Wet Prep; Complete Time: 09:14 kb 12/02 08:34 Order name: GC (Adrián/Chl) Probe CX/URE (Do not order if pt is under 13, order Culture kb instead) 12/02 09:06 Order name: Urine Culture EDMS 12/02 08:34 Order name: Pelvic Exam Setup; Complete Time: 08:42 kb Administered Medications: 10:20 Drug: Rocephin (cefTRIAXone) IM 500 mg IM once Route: IM; Site: right deltoid; db 10:27 Follow up: Response: No adverse reaction db 10:20 Drug: Doxycycline PO 100 mg PO once Route: PO; db 10:28 Follow up: Response: No adverse reaction db Disposition: 11:43 Co-signature as Attending Physician, Chad Workman MD I reviewed the patient's care rt provided by the Advanced Practice Provider and agree with the diagnosis and treatment plan. Disposition Summary: 12/02/22 10:00 Discharge Ordered Notes: Location: Home kb Condition: Stable kb Diagnosis - UTI/ Urinary tract infection, site not specified kb Followup: kb - With: Emergency Department - When: As needed - Reason: Worsening of condition Followup: kb - With: Private Physician - When: 2 - 3 days - Reason: Recheck today's complaints, Continuance of care, Re-evaluation by your physician Discharge Instructions: - Discharge Summary Sheet kb - Urinary Tract Infection, Adult, Bqtw-on-Fepx kb - Preventing Sexually Transmitted Infections, Adult kb Forms: - Medication Reconciliation Form kb - Thank You Letter kb - Antibiotic Education kb - Prescription Opioid Use kb - Patient Portal Instructions kb - Leadership Thank You Letter kb Prescriptions: - Macrobid 100 mg Oral Capsule - take 1 capsule ORAL route every 12 hours for 10 days; 20 capsule; Refills: 0, kb Product Selection Permitted - Doxycycline Hyclate 100 mg Oral Tablet - take 1 tablet ORAL route every 12 hours; 20 tablet; Refills: 0, Product kb Selection Permitted Signatures: Dispatcher [employer] EDJalyn Zuluaga, NIGHT GUARD-C NIGHT GUARD-Lulú Marquez RN RN Chad Bryant MD MD rt Corrections: (The following items were deleted from the chart) 09:39 09:38 Onset: The symptoms/episode began/occurred 4 day(s) ago, kb kb
--- NOTE | 2022-12-02 10:00 | ER ---
Nurse's Notes [facility] Name: Roberto Carlos Mcdermott Age: 22 yrs Sex: Female : 2000 Arrival Date: 12/02/2022 Time: 07:53 Bed DIS4 Private MD: Diagnosis: UTI/ Urinary tract infection, site not specified Presentation: 12/02 08:15 Chief complaint: Patient states: PATIENT WITH BURNING WITH URINATION X 1 WEEK. db Coronavirus screen: Vaccine status: Patient reports receiving the 2nd dose of the covid vaccine. Client denies travel out of the [place] in the last 14 days. At this time, the client does not indicate any symptoms associated with coronavirus-19. Ebola Screen: Patient negative for fever greater than or equal to 101.5 degrees Fahrenheit, and additional compatible Ebola Virus Disease symptoms Patient denies exposure to infectious person. Patient denies travel to an Ebola-affected area in the 21 days before illness onset. No symptoms or risks identified at this time. Initial Sepsis Screen: Does the patient meet any 2 criteria? No. Patient's initial sepsis screen is negative. Does the patient have a suspected source of infection? No. Patient's initial sepsis screen is negative. Risk Assessment: Do you want to hurt yourself or someone else? Patient reports no desire to harm self or others. Onset of symptoms was November 25, 2022. 08:15 Method Of Arrival: Ambulatory db 08:15 Acuity: SHA 4 db Triage Assessment: 08:33 General: Appears in no apparent distress. comfortable, Behavior is calm, cooperative. db Pain: Complains of pain in abdomen. GI: Abdomen is flat, non-distended. : Parent/caregiver report the patient having burning with urination. 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 - Social history:: Smoking status: Patient denies any tobacco usage or history of. Screenin:34 [facility] ED Fall Risk Assessment (Adult) History of falling in the last 3 months, db including since admission No falls in past 3 months (0 pts) Confusion or Disorientation No (0 pts) Score/Fall Risk Level 0 - 2 = Low Risk Oriented to surroundings, Maintained a safe environment. Abuse screen: Denies threats or abuse. Denies injuries from another. Nutritional screening: No deficits noted. Tuberculosis screening: No symptoms or risk factors identified. Assessment: 08:34 Reassessment: SEE TRIAGE FOR INITIAL ASSESSMENT. db 08:42 Reassessment: PELVIC SETUP AT BEDSIDE. db 10:29 Reassessment: Patient appears in no apparent distress at this time. Patient and/or db family updated on plan of care and expected duration. Pain level reassessed. Patient is alert, oriented x 3, equal unlabored respirations, skin warm/dry/pink. General: Appears in no apparent distress. comfortable, Behavior is calm, cooperative. Neuro: Level of Consciousness is awake, alert, obeys commands, Oriented to person, place, time, situation. 10:30 GI: Abd is soft and non tender X 4 quads. db Vital Signs: 08:15 BP 150 / 106; Pulse 88; Resp 18; Temp 98.5(O); Pulse Ox 100% on R/A; Weight 72.57 kg; db Height 5 ft. 5 in. ; 10:20 BP 144 / 99; Pulse 57; Resp 16; Pulse Ox 99% on R/A; db 08:15 Body Mass Index 26.63 (72.57 kg, 165.1 cm) db 08:15 MOM CRYING WORRIED ABOUT BABY WHO IS ALSO PT. WILL RECHECK BP db ED Course: 08:01 Patient arrived in ED. im 08:02 Jalyn Garcia FNP-C is PHCP. kb 08:02 Chad Workman MD is Attending Physician. kb 08:22 Lulú Og, RN is Primary Nurse. db 08:33 Triage completed. db 08:33 Arm band placed on Patient placed in an exam room. db 08:34 Patient has correct armband on for positive identification. Call light in reach. Side db rails up X 1. Pulse ox on. NIBP on. 08:59 Assist provider with pelvic exam: Set up pelvic tray. Performed by Jalyn MEDEL Specimens sent to lab. Patient tolerated. 10:29 Provided Education on: DISCHARGE. db 10:29 Patient did not have IV access during this emergency room visit. db Administered Medications: 10:20 Drug: Rocephin (cefTRIAXone) IM 500 mg IM once Route: IM; Site: right deltoid; db 10:27 Follow up: Response: No adverse reaction db 10:20 Drug: Doxycycline PO 100 mg PO once Route: PO; db 10:28 Follow up: Response: No adverse reaction db Medication: 10:29 VIS not applicable for this client. db Outcome: 10:00 Discharge ordered by . kb 10: Discharged to home ambulatory, with family, db 10: Condition: stable 10: Discharge instructions given to patient, Instructed on discharge instructions, follow up and referral plans. Prescriptions given X 2, 10:31 Patient left the ED. db Signatures: Jalyn Garcia, DANE-C STAFFING DIRECTOR-Lulú Marquez, RN RN db Delma Correa Corrections: (The following items were deleted from the chart) 10: 10: BP 144 / 99; Pulse 57bpm; Resp 16bpm; Pulse Ox 99% RA; db db
[2022-12-02] MEDS ORDERED: DOXYCYCLINE 100 MG CAP PO ONE (10:19)
[2022-12-02] MEDS ORDERED: CEFTRIAXONE 500 MG/VIAL ONE (10:19)
[2022-12-02] MEDS ORDERED: LIDOCAINE 1% MPF 2 ML AMPULE ONE (10:19)
[2022-12-02 10:35] VITALS: TEMP 98.5
[2022-12-02 10:36] VITALS: BP 144/99; O2SAT 99
== END 2022-12-02 10:31 | disposition home or self-care (01) ==
LOC: ER 07:53
DX: N39.0 Urinary tract infection, site not specified (principal)
CPT/HCPCS: 81001; 81025; 87086; 87088; 87210; 87490; 87590

== ENCOUNTER 2023-05-17 00:30 | Emergency (ER) | payer OTHER ==
--- OUTSIDE RECORDS SUMMARY | 2023-05-17 00:47 | XMS REPORT | Continuity of Care Document ---
Author Name Unknown Address [address] [facility] [address] [place] [address] [facility] thconnect Address [address] [facility] [address] [place] [address] Care Team Providers Care Umbrella Frame Maker Name Role Phone ALESHIA DODGE Primary Care Physician UnaYUE Steen Attending Clinician UnavailYue Maldonado CNM Attending Clinician [phone] Doctor Unassigned, [place] Attending Clinician U narcisa Lal MD, Josette Denis Attending Clinician + Anders Dash MD Attending Clinician + [phone] Frederic Baugh MD Attending Clinician [phone] EVAN ANTONY Attending Clinician Unavailable 1, [facility] Attending Clinician UnavailShruthi Akbar Attending Clinician [phone] ProviderTamiko Temfrancis Attending Clinician Carolyn vailable Julian Mercedes Attending Clinician + JULIAN ROLAND Attending Clinician Unavail able Guido DO, Jaswinder Attending Clinician [phone] JASWINDER COLEMAN Attending Clinician Unavailable AKSHAT, ANA F Attending Clinician Unavailable Akshat BLOCK, Ana Howe Attending Clinician +[phone] Wil BLOCK, Esther Attending Clinician [phone] ESTHER DE LA TORRE Attending Clinician Unavailable ESTHER DE LA TORRE Attending Clinician Unavailable Benjamin GOLDSTEIN, Aleshia Spangler Attending Clinician [phone] ALESHIA DODGE Attending Clinician Unavailab MONIQUE Villeda Attending Clinician Unavailable Dharmesh BLOCK, Monique Meza Attending Clinician [phone] Jimmy RICO, Kimberly Attending Clinician Unavailable 2, [facility] Attending Clinician Unavaillefty Bowden MD, Iglesia Almaguer Attending Clinician + [phone] IGLESIA BOWDEN Attending Clinician Unavaila ivan Ultrasound, [facility] Attending Clinician UnavailQING Bhatia Attending Clinician Unavailable Anna Cooley Attending Clinician [phone] GINA RICARDO Attending Clinician Unavailab Gina Beebe DO Attending Clinician [phone] Qing Morley MD Attending Clinician [phone] Harleen Miles MD Attending Clinician + [phone] HARLEEN MILES Attending Clinician Tanya abad Ultrasound, [facility] Attending Clinician UnavailPARVEZ Leblanc Attending Clinician Unavailable Parvez Chung PA-C Attending Clinician [phone] 2, [facility] Attending Clinician Unavailable Rach Oropeza RN Attending Clinician Unavailab ANNA Parker Attending Clinician Unavailable Hamida Chavez Attending Clinician [phone] Shaniqua Kwong RN Attending Clinician HAMIDA Ramirez Attending Clinician Unavailable Samia Tejada NP Attending Clinician [phone] QING MORLEY Admitting Clinician Unavailable Josette Lal MD Admitting Clinician + JOSETTE LAL Admitting Clinician Mariel ailable MONIQUE BARROSO Admitting Clinician Unavailable Monique Barroso MD Admitting Clinician HARLEEN MILES Admitting Clinician Tanya Morley MD, Qing Duncan Admitting Clinician Payers Payer Name Policy Type Policy Number Effective Date Expirati on Date Source [place] [employer] [id number] 2022 00:00:00 [facility] [id number] 2015 00:00:00 Problems Condition Name Condition Details Condition Category Status Onset Date Resolution Date Last Treatment Date Treating Clinician Comments Source Anemia, Anemia, Disease Active 08-29 00:00: 00 [facility] Maternal varicella, non-immune Maternal varicella, non-immune Disease Active 08-29 00:00: 00 [facility] (spontaneo us vaginal delivery) (spontaneo us vaginal delivery) Disease Active 08-28 00:00: 00 [facility] Single live Single live Disease Active 08-28 00:00: 00 [facility] Chorioamni onitis Chorioamni onitis Disease Active 08-28 00:00: 00 [facility] Obstetrica l laceration Obstetrica l laceration Disease Active 08-28 00:00: 00 [facility] Forceps delivery Forceps delivery Disease Active 08-28 00:00: 00 [facility] 39 weeks gestation of 39 weeks gestation of Disease Active 08-26 00:00: 00 [facility] Obesity (BMI 30-39.9) Obesity (BMI 30-39.9) Disease Active 08-26 00:00: 00 [facility] Obesity affecting Obesity affecting Disease Active 08-17 00:00: 00 [facility] Hematuria, unspecifie d type Hematuria, unspecifie d type Disease Active 6 00:00: 00 [facility] Susceptibl e to varicella (non-immun e), currently Susceptibl e to varicella (non-immun e), currently Disease Active 6-26 00:00: 00 [facility] Heartburn during in third trimester Heartburn during in third trimester Disease Active 5-26 00:00: 00 [facility] Low back pain during in third trimester Low back pain during in third trimester Disease Active 5-24 00:00: 00 [facility] COVID-19 affecting in third trimester COVID-19 affecting in third trimester Disease Active 4-30 00:00: 00 Overview: Formattin g of this note might be different from the original. + home test 3 [facility] Overweight (BMI 25.0-29.9) Overweight (BMI 25.0-29.9) Disease Active 4-30 00:00: 00 [facility] Vaginal bleeding in , second trimester Vaginal bleeding in , second trimester Disease Active 4-15 00:00: 00 [facility] 26 weeks gestation of 26 weeks gestation of Disease Active 4-15 00:00: 00 [facility] Umbilical vein abnormalit y affecting , single or unspecifie d fetus Umbilical vein abnormalit y affecting , single or unspecifie d fetus Disease Active 4-05 00:00: 00 [facility] BV (bacterial vaginosis) BV (bacterial vaginosis) Disease Active 1-12 00:00: 00 [facility] Supervisio n of high-risk Supervisio n of high-risk Disease Active 1-10 00:00: 00 [facility] History of miscarriag e History of miscarriag e Disease Active 1-10 00:00: 00 [facility] Vaginal discharge Vaginal discharge Disease Active 2016-02 0-06 00:00: 00 [facility] Depo-Prove ra contracept giovanny status Depo-Prove ra contracept giovanny status Disease Active 10-02 00:00: 00 [facility] Allergies, Adverse Reactions, Alerts Allergy Name Allergy Type Status Severity Reaction(s) Onset Date Inactive Date Treating Clinician Comments Source NO KNOWN ALLERGIE S Drug Class Active [facility] Social History Social Habit Start Date Stop Date Quantity Comments Source ASSERTION 2021-12-10 00:00:00 [facility] Exposure to SARS-CoV-2 (event) 2022-07-12 00:00:00 2022-07-22 20:23:00 Not sure [facility] History of Social function 2022-01-17 00:00:00 2022-01-17 00:00:00 [facility] Tobacco use and exposure 2022-01-17 00:00:00 2022-01-17 00:00:00 Smokeless tobacco non-user [facility] Alcohol intake 2022-01-17 00:00:00 2022-01-17 00:00:00 0 /d [facility] Sex Assigned At 2000 00:00:00 2000 00:00:00 [facility] Smoking Status Start Date Stop Date Source Never smoked tobacco [facility] Medications Ordered Medication Name Filled Medication Name Start Date Stop Date Current Medication? Ordering Clinician Indication Dosage Frequency Signature (SIG) Comments Components Source gentamicin 340 mg in NaCl 0.9% (NS) 250 mL IV infusion 08-29 02:00: 00 08-29 03:23 :00 No 5mg/kg 340 mg (rounded from 338 mg = 5 mg/kg ?67.6 kg Adjusted weight), IV Infusion, Q24H ABX, 1 dose, First dose (after last modificati on) on Wed08/28/22 at 2100, Administer over 60 Minutes, 250 mL
I ndication for aminoglyco side: Documented /suspected gram-negat giovanny infection< br>Patient has/is: None of the above
R fouzia for Anti-Infec tive: Documented Infection< br>Documen jaden Infection Site: Pelvic
Duration of Therapy: [address] [facility] vitamin w/FA tablet 2022-0 15 00:00: 00 Yes [id number] 1{tbl} Take 1 tablet by mouth in the morning. [facility] docusate 100 mg capsule 2022-0 -15 00:00: 00 Yes [id number] 200mg Take 2 capsules by mouth once daily as needed for Constipati on. [facility] ferrous sulfate 325 mg (65 mg iron) tablet 2022-0 15 00:00: 00 Yes [id number] 325mg Take 1 tablet by mouth in the morning and 1 tablet in the evening. [facility] ibuprofen 600 mg tablet 0 15 00:00: 00 Yes [id number] 600mg Take 1 tablet by mouth every 6 (six) hours as needed (Pain). Take with food or milk. [facility] vitamin w/FA tablet 2022-0 15 00:00: 00 Yes [id number] 1{tbl} Take 1 tablet by mouth in the morning. [facility] docusate 100 mg capsule 0 15 00:00: 00 Yes [id number] 200mg Take 2 capsules by mouth once daily as needed for Constipati on. [facility] ferrous sulfate 325 mg (65 mg iron) tablet 0 15 00:00: 00 Yes [id number] 325mg Take 1 tablet by mouth in the morning and 1 tablet in the evening. [facility] ibuprofen 600 mg tablet 2022-0 15 00:00: 00 Yes [id number] 600mg Take 1 tablet by mouth every 6 (six) hours as needed (Pain). Take with food or milk. [facility] vitamin w/FA tablet 0 15 00:00: 00 Yes [id number] 1{tbl} Take 1 tablet by mouth in the morning. [facility] docusate 100 mg capsule 2022-0 15 00:00: 00 Yes [id number] 200mg Take 2 capsules by mouth once daily as needed for Constipati on. [facility] ferrous sulfate 325 mg (65 mg iron) tablet 2022-0 -15 00:00: 00 Yes [id number] 325mg Take 1 tablet by mouth in the morning and 1 tablet in the evening. [facility] ibuprofen 600 mg tablet 08-29 00:00: 00 Yes [id number] 600mg Take 1 tablet by mouth every 6 (six) hours as needed (Pain). Take with food or milk. [facility] ampicillin (POLYCILLIN -N) 2,000 mg in NaCl 0.9% (NS) 100 mL MINI-BAG 08-28 06:30: 00 08-29 01:40 :00 No 2g 2,000 mg (2 g), IV Piggyback, Q6H ABX, 4 doses, First dose (after last modificati on) on Wed08/28/22 at 0130, Last dose on Wed08/28/22 at 1930, Administer over 30 Minutes, 100 mL
Reas on for Anti-Infec tive: Empiric Therapy for Suspected Infection< br>Empiric Therapy Site: Pelvic
Duration of therapy: [address] [facility] ibuprofen (IBU) tablet 600 mg 08-28 05:54: 04 Yes 600mg 600 mg, Oral, Q6HPRN, Starting on Wed08/28/22 at 0054, Until Discontinu ed, Routine, Pain (scale 4-6) [facility] acetaminoph en (TYLENOL) tablet 650 mg 08-28 05:54: 04 Yes 650mg 650 mg, Oral, Q6HPRN, Starting on Wed08/28/22 at 0054, Until Discontinu ed, Routine, Pain (scale 1-3) [facility] diphenhydrA MINE (BENADRYL) tablet 25 mg 08-28 05:54: 04 Yes 25mg 25 mg, Oral, Q6HPRN, Starting on Wed08/28/22 at 0054, Until Discontinu ed, Routine, Sleep, Itching [facility] ondansetron (ZOFRAN (PF)) injection 4 mg 08-28 05:54: 04 Yes 4mg 4 mg, Slow IV Push, Q8HPRN, Starting on Wed08/28/22 at 0054, Until Discontinu ed, Routine, Nausea and Vomiting (N/V) [facility] simethicone (GAS RELIEF (SIMETHICON E)) chewable tablet 160 mg 08-28 05:54: 04 Yes 160mg 160 mg, Oral, PC+HSPRN, Starting on Wed08/28/22 at 0054, Until Discontinu ed, Routine, Gas [facility] docusate (COLACE) capsule 200 mg 08-28 05:54: 04 Yes 200mg 200 mg, Oral, QDAILYPRN, Starting on Wed08/28/22 at 0054, Until Discontinu ed, Routine, Constipati on [facility] magnesium hydroxide (MILK OF MAGNESIA) 400 mg/5 mL suspension 30 mL 08-28 05:54: 04 Yes 30mL 30 mL, Oral, QDAILYPRN, Starting on Wed08/28/22 at 0054, Until Discontinu ed, Routine, Constipati on [facility] benzocaine- menthol (DERMOPLAST ) 20-0.5 % topical spray 08-28 05:54: 04 Yes Topical, PRN, Starting on Wed08/28/22 at 0054, Until Discontinu ed, Routine, Perineum discomfort [facility] lactated ringers IV infusion 1,000 mL 08-28 05:00: 00 08-28 05:53 :08 No 1000mL at 125 mL/hr, 1,000 mL, IV Infusion, ONCE, 1 dose, On Wed08/28/22 at 0000, AFUA [facility] ibuprofen (IBU) tablet 600 mg 08-28 04:55: 00 Yes 600mg 600 mg, Oral, Q6HPRN, Starting on Wed08/27/22 at 2355, Until Discontinu ed, Routine, Pain (scale 1-3) [facility] oxytocin (PITOCIN) 30 units in NS 500 mL IV infusion 08-28 04:54: 54 Yes 600mL/h 600 mL/hr, IV Infusion, PRN, For post delivery uterine atony., Starting on Wed08/27/[address] at 600 mL/hr for 1 hr then 150 mL/hr for [address]
[facility] oxytocin (PITOCIN) 30 units in NS 500 mL IV infusion 08-28 04:54: 54 Yes 300mL/h 300 mL/hr, IV Infusion, SEE-INSTRU CTIONS, Starting on Whitney 08/27/[address] at 300 mL/hr for 1 hr then 150 mL/hr for 1 hr. For post delivery uterotonic .
[facility] gentamicin 340 mg in NaCl 0.9% (NS) 250 mL IV infusion 08-28 01:15: 00 08-28 02:47 :25 No 5mg/kg 340 mg (rounded from 338 mg = 5 mg/kg ?67.6 kg Adjusted weight), IV Infusion, Q24H ABX, 1 dose, First dose (after last modificati on) on Whitney 08/27/22 at 2014, Administer over 60 Minutes, 250 mL
R fouzia for Anti-Infec tive: Empiric Therapy for Suspected Infection< br>Empiric Therapy Site: Pelvic
Duration of therapy: [address] [facility] acetaminoph en (TYLENOL) tablet 1,000 mg 08-28 01:15: 00 08-28 00:34 :00 No 1000mg 1,000 mg, Oral, ONCE NOW, 1 dose, On Wed08/27/22 at 2014, Routine [facility] ampicillin (POLYCILLIN -N) 2,000 mg in NaCl 0.9% (NS) 100 mL MINI-BAG 08-28 01:15: 00 08-28 06:02 :33 No 2g 2,000 mg (2 g), IV Piggyback, Q6H ABX, First dose on Whitney 08/27/22 at 2014, Until Discontinu ed, Administer over 30 Minutes, 100 mL
Reas on for Anti-Infec tive: Empiric Therapy for Suspected Infection< br>Empiric Therapy Site: Pelvic
Duration of therapy: [address] [facility] ondansetron (ZOFRAN (PF)) injection 4 mg 08-27 14:15: 00 08-27 13:15 :00 No 4mg 4 mg, Slow IV Push, ONCE, On Whitney 08/27/22 at 0915, For 1 dose
Do ses of ondansetro n 16 mg and above need to be administer ed via IV piggyback. For Dose >=24mg ECG monitoring is advisable.
[facility] ropivacaine 0.2 % (NAROPIN (PF)) epidural infusion 08-27 12:19: 00 08-28 06:11 :37 No Epidural, CONTINUOUS PRN, Starting on Whitney 08/27/22 at 0719, Until Wed08/28/22 at 0111, Routine, Intra-op [facility] ropivacaine 0.2 % (NAROPIN (PF)) epidural infusion 08-27 12:19: 00 08-28 06:11 :37 No Epidural, CONTINUOUS PRN, Starting on Whitney 08/27/22 at 0719, Until Wed08/28/22 at 0111, Routine, Intra-op [facility] lidocaine-e pinephrine (XYLOCAINE W/EPINEPHRI NE) 1.5 %-1:200,000 injection 08-27 12:17: 00 08-28 06:11 :37 No Intraderma l, ONCE INTRA PROCEDURE, Starting on Whitney 08/27/22 at 0717, Until Wed08/28/22 at 011, Routine, Intra-op [facility] lidocaine-e pinephrine (XYLOCAINE W/EPINEPHRI NE) 1.5 %-1:200,000 injection 08-27 12:17: 00 08-28 06:11 :37 No Intraderma l, ONCE INTRA PROCEDURE, Starting on Whitney 08/27/22 at 0717, Until Wed08/28/22 at 011, Routine, Intra-op [facility] oxytocin (PITOCIN) 30 units in NS 500 mL IV infusion 08-27 10:29: 56 Yes 2mU/min at 2-40 mL/hr, IV Infusion, TITRATE, Starting on Whitney 08/27/22 at 0529, Until Discontinu ed, AFUA [facility] lactated ringers IV infusion 500 mL 08-27 10:15: 00 08-27 12:24 :00 No 500mL at 999 mL/hr, 500 mL, IV Infusion, ONCE, 1 dose, On Wed08/27/22 at 0515, Routine [facility] lactated ringers IV infusion 500 mL 08-27 09:29: 47 Yes 500mL at 999 mL/hr, 500 mL, IV Infusion, PRN - SEE INSTRUCTIO NS, 1 dose, Starting on Wed08/27/22 at 0429, Until Discontinu ed, Routine [facility] sodium citrate-cit bravo acid (BICITRA) 500-334 mg/5 mL solution 30 mL 08-27 09:29: 47 08-27 12:24 :00 No 30mL 30 mL, Oral, PRE-PROCED URE ONCE, 1 dose, Starting on Wed08/27/22 at 0429, Until Wed08/27/22 at 0724, Routine, Surgery/Pr ocedure [facility] proMETHazin e (PHENERGAN) 12.5 mg in NS 50 mL IV piggyback (CNR) 08-27 05:30: 00 08-27 05:37 :00 No 12.5mg 12.5 mg, IV Piggyback, at 200 mL/hr Administer over 15 Minutes, ONCE, 1 dose, On Wed08/27/22 at 0030, Routine [facility] morpHINE (4 mg/mL) injection 4 mg 08-27 05:15: 00 08-27 05:22 :00 No 4mg 4 mg, Slow IV Push, ONCE, 1 dose, On Wed08/27/22 at 0015, Routine [facility] sodium citrate-cit bravo acid (BICITRA) 500-334 mg/5 mL solution 30 mL 08-26 20:35: 38 Yes 30mL 30 mL, Oral, PRE-PROCED URE ONCE, 1 dose, Starting on Wed08/26/22 at 1535, Until Discontinu ed, Routine, Surgery/Pr ocedure [facility] lactated ringers IV infusion 500 mL 08-26 20:35: 38 Yes 500mL at 999 mL/hr, 500 mL, IV Infusion, PRN - SEE INSTRUCTIO NS, 1 dose, Starting on Wed08/26/22 at 1535, Until Discontinu ed, Routine [facility] morpHINE (4 mg/mL) injection 4 mg 08-26 20:31: 20 Yes 4mg 4 mg, Slow IV Push, Q4HPRN, Starting on Wed08/26/22 at 1531, Until Discontinu ed, Routine, Pain (scale 4-6) [facility] sodium citrate-cit bravo acid (BICITRA) 500-334 mg/5 mL solution 30 mL 08-26 20:15: 10 Yes 30mL 30 mL, Oral, PRE-PROCED URE ONCE, 1 dose, Starting on Wed08/26/22 at 1515, Until Discontinu ed, Routine, Surgery/Pr ocedure [facility] lidocaine 1% (XYLOCAINE) 10 mg/mL (1 %) injection 50 mL 08-26 20:15: 10 Yes 50mL 50 mL, Infiltrati on, PRN - SEE INSTRUCTIO NS, Starting on Wed08/26/22 at 1515, Until Discontinu ed, Routine, Local anesthesia , For laceration repair only as a local anesthetic as indicated. [facility] lidocaine 1% (PF) (XYLOCAINE) injection 0.3 mL 08-26 20:15: 10 Yes .3mL 0.3 mL, Infiltrati on, PRN - SEE INSTRUCTIO NS, Starting on Wed08/26/22 at 1515, Until Discontinu ed, Routine, Local anesthesia , For IV line placement only as a local anesthetic . [facility] lactated ringers IV infusion 500 mL 08-26 20:15: 10 Yes 500mL at 999 mL/hr, 500 mL, IV Infusion, PRN - SEE INSTRUCTIO NS, Starting on Wed08/26/22 at 1515, Until Discontinu ed, Routine [facility] D5W-LR IV infusion 1,000 mL 08-26 20:15: 10 Yes 1000mL at 1-125 mL/hr, IV Infusion, TITRATE, Starting on Wed08/26/22 at 1515, Until Discontinu ed, [facility]ine [facility] mg tablet 2022-0 - 00:00: 00 Yes [id number] 20mg Take 1 tablet by mouth in the morning and 1 tablet in the evening. [facility] famotidine (PEPCID) 20 mg tablet 3-0 - 00:00: 00 Yes [id number] 20mg Take 1 tablet by mouth in the morning and 1 tablet in the evening. [facility] 20 mg tablet 3-0 -26 00:00: 00 Yes [id number] 20mg Take 1 tablet by mouth in the morning and 1 tablet in the evening. [facility] famotidine (PEPCID) 20 mg tablet 2022-0 -26 00:00: 00 Yes [id number] 20mg Take 1 tablet by mouth in the morning and 1 tablet in the evening. [facility] famotidine (PEPCID) 20 mg tablet 3-0 - 00:00: 00 Yes [id number] 20mg Take 1 tablet by mouth in the morning and 1 tablet in the evening. [facility] famotidine (PEPCID) 20 mg tablet 3-0 -26 00:00: 00 Yes [id number] 20mg Take 1 tablet by mouth in the morning and 1 tablet in the evening. [facility] famotidine (PEPCID) 20 mg tablet 3-0 - 00:00: 00 Yes [id number] 20mg Take 1 tablet by mouth in the morning and 1 tablet in the evening. [facility] famotidine (PEPCID) 20 mg tablet 3-0 -26 00:00: 00 Yes [id number] 20mg Take 1 tablet by mouth in the morning and 1 tablet in the evening. [facility] famotidine (PEPCID) 20 mg tablet 3-0 -26 00:00: 00 Yes [id number] 20mg Take 1 tablet by mouth in the morning and 1 tablet in the evening. [facility] famotidine (PEPCID) 20 mg tablet 3-0 -26 00:00: 00 Yes [id number] 20mg Take 1 tablet by mouth in the morning and 1 tablet in the evening. [facility] famotidine (PEPCID) 20 mg tablet 3-0 5-26 00:00: 00 Yes [id number] 20mg Take 1 tablet by mouth in the morning and 1 tablet in the evening. [facility] famotidine (PEPCID) 20 mg tablet 3-0 5-26 00:00: 00 Yes [id number] 20mg Take 1 tablet by mouth in the morning and 1 tablet in the evening. [facility] famotidine (PEPCID) 20 mg tablet 3-0 -26 00:00: 00 Yes [id number] 20mg Take 1 tablet by mouth in the morning and 1 tablet in the evening. [facility] famotidine (PEPCID) 20 mg tablet 3-0 -26 00:00: 00 Yes [id number] 20mg Take 1 tablet by mouth in the morning and 1 tablet in the evening. [facility] famotidine (PEPCID) 20 mg tablet 3-0 -26 00:00: 00 Yes [id number] 20mg Take 1 tablet by mouth in the morning and 1 tablet in the evening. [facility] famotidine (PEPCID) 20 mg tablet 3-0 -26 00:00: 00 Yes [id number] 20mg Take 1 tablet by mouth in the morning and 1 tablet in the evening. [facility] famotidine (PEPCID) 20 mg tablet 3-0 -26 00:00: 00 Yes [id number] 20mg Take 1 tablet by mouth in the morning and 1 tablet in the evening. [facility] famotidine (PEPCID) 20 mg tablet 3-0 5-26 00:00: 00 Yes [id number] 20mg Take 1 tablet by mouth in the morning and 1 tablet in the evening. [facility] famotidine (PEPCID) 20 mg tablet 3-0 5-26 00:00: 00 Yes [id number] 20mg Take 1 tablet by mouth in the morning and 1 tablet in the evening. [facility] famotidine (PEPCID) 20 mg tablet 3-0 -26 00:00: 00 Yes [id number] 20mg Take 1 tablet by mouth in the morning and 1 tablet in the evening. [facility] (PEPCID[facility] 20 mg tablet 3-0 5-26 00:00: 00 Yes [id number] 20mg Take 1 tablet by mouth in the morning and 1 tablet in the evening. [facility] 20 mg tablet 3-0 5-26 00:00: 00 Yes [id number] 20mg Take 1 tablet by mouth in the morning and 1 tablet in the evening. [facility] famotidine (PEPCID) 20 mg tablet 2022-0 5-26 00:00: 00 Yes [id number] 20mg Take 1 tablet by mouth in the morning and 1 tablet in the evening. [facility] famotidine (PEPCID) 20 mg tablet 2022-0 -26 00:00: 00 Yes [id number] 20mg Take 1 tablet by mouth in the morning and 1 tablet in the evening. [facility] famotidine (PEPCID) 20 mg tablet 3-0 -26 00:00: 00 Yes [id number] 20mg Take 1 tablet by mouth in the morning and 1 tablet in the evening. [facility] famotidine (PEPCID) 20 mg tablet 3-0 5-26 00:00: 00 Yes [id number] 20mg Take 1 tablet by mouth in the morning and 1 tablet in the evening. [facility] famotidine (PEPCID) 20 mg tablet 3-0 -26 00:00: 00 Yes [id number] 20mg Take 1 tablet by mouth in the morning and 1 tablet in the evening. [facility] famotidine (PEPCID) 20 mg tablet 3-0 5-26 00:00: 00 Yes [id number] 20mg Take 1 tablet by mouth in the morning and 1 tablet in the evening. [facility] 20 mg tablet 3-0 5-26 00:00: 00 202-15 00:00 :00 No [id number] 20mg Take 1 tablet by mouth in the morning and 1 tablet in the evening. [facility] PROMETHAZIN E 25 mg tablet 3-0 4-24 00:00: 00 Yes [id number] TAKE 1 TABLET BY MOUTH EVERY 6 HOURS NEEDED FOR NAUSEA AND VOMITING . [facility] PROMETHAZIN E 25 mg tablet 3-0 4-24 00:00: 00 Yes [id number] TAKE 1 TABLET BY MOUTH EVERY 6 HOURS NEEDED FOR NAUSEA AND VOMITING . [facility] PROMETHAZIN E 25 mg tablet 2022-0 4-24 00:00: 00 Yes [id number] TAKE 1 TABLET BY MOUTH EVERY 6 HOURS NEEDED FOR NAUSEA AND VOMITING . [facility] PROMETHAZIN E 25 mg tablet 2022-0 4-24 00:00: 00 Yes [id number] TAKE 1 TABLET BY MOUTH EVERY 6 HOURS NEEDED FOR NAUSEA AND VOMITING . [facility] PROMETHAZIN E 25 mg tablet 3-0 4-24 00:00: 00 Yes [id number] TAKE 1 TABLET BY MOUTH EVERY 6 HOURS NEEDED FOR NAUSEA AND VOMITING . [facility] PROMETHAZIN E 25 mg tablet 2022-0 424 00:00: 00 Yes [id number] TAKE 1 TABLET BY MOUTH EVERY 6 HOURS NEEDED FOR NAUSEA AND VOMITING . [facility] PROMETHAZIN E 25 mg tablet 2022-0 4-24 00:00: 00 Yes [id number] TAKE 1 TABLET BY MOUTH EVERY 6 HOURS NEEDED FOR NAUSEA AND VOMITING . [facility] PROMETHAZIN E 25 mg tablet 2022-0 424 00:00: 00 Yes [id number] TAKE 1 TABLET BY MOUTH EVERY 6 HOURS NEEDED FOR NAUSEA AND VOMITING . [facility] PROMETHAZIN E 25 mg tablet 2022-0 424 00:00: 00 07-10 00:00 :00 No [id number] TAKE 1 TABLET BY MOUTH EVERY 6 HOURS NEEDED FOR NAUSEA AND VOMITING . [facility] Nitrofurant oin&Nit. Macrocryst (MACROBID) 100 mg capsule 100 mg 04-21 06:00: 00 04-21 05:53 :00 No 100mg 100 mg, Oral, ONCE, 1 dose, On Wed04/21/22 at 0000, Routine
Reason for Anti-Infec tive: Documented Infection< br>Documen jaden Infection Site: Urine
D uration of Therapy: Other (see Comments) [facility] acetaminoph en (TYLENOL) tablet 650 mg 04-21 05:47: 03 Yes 650mg 650 mg, Oral, Q6HPRN, Starting on Wed04/20/22 at 2347, Until Discontinu ed, Routine, Pain (scale 4-6) [facility] Nitrofurant oin&Nit. Macrocryst 100 mg capsule 04-21 00:00: 00 Yes [id number] 100mg Take 1 capsule by mouth in the morning and 1 capsule in the evening. [facility] Nitrofurant oin&Nit. Macrocryst 100 mg capsule 04-21 00:00: 00 Yes [id number] 100mg Take 1 capsule by mouth in the morning and 1 capsule in the evening. [facility] Nitrofurant oin&Nit. Macrocryst 100 mg capsule 04-21 00:00: 00 Yes [id number] 100mg Take 1 capsule by mouth in the morning and 1 capsule in the evening. [facility] Nitrofurant oin&Nit. Macrocryst 100 mg capsule 04-21 00:00: 00 05-20 00:00 :00 No [id number] 100mg Take 1 capsule by mouth in the morning and 1 capsule in the evening. [facility] metroNIDAZO LE 500 mg tablet 02-26 00:00: 00 Yes [id number] 500mg Take 1 tablet by mouth in the morning and 1 tablet in the evening. [facility] metroNIDAZO LE 500 mg tablet 0 02-26 00:00: 00 Yes [id number] 500mg Take 1 tablet by mouth in the morning and 1 tablet in the evening. [facility] metroNIDAZO LE 500 mg tablet 02-26 00:00: 00 Yes [id number] 500mg Take 1 tablet by mouth in the morning and 1 tablet in the evening. [facility] metroNIDAZO LE 500 mg tablet 12 00:00: 00 03-19 00:00 :00 No [id number] 500mg Take 1 tablet by mouth in the morning and 1 tablet in the evening. [facility] metroNIDAZO LE 500 mg tablet 02-25 00:00: 00 03-05 05:59 :00 No [id number] 500mg Take 1 tablet by mouth in the morning and 1 tablet in the evening. Do all this for [address] [facility] metroNIDAZO LE 500 mg tablet 02-25 00:00: 00 03-05 05:59 :00 No [id number] 500mg Take 1 tablet by mouth in the morning and 1 tablet in the evening. Do all this for [address] [facility] metroNIDAZO LE 500 mg tablet 02-25 00:00: 00 03-05 05:59 :00 No [id number] 500mg Take 1 tablet by mouth in the morning and 1 tablet in the evening. Do all this for [address] [facility] vit 33-iron-fol ic-dha (SELECT-OB + DHA) 29 mg iron-1 mg -250 mg combo pack 2021-02 00:00: 00 Yes [id number] Take [address] [facility] vit 33-iron-fol ic-dha (SELECT-OB + DHA) 29 mg iron-1 mg -250 mg combo pack 2021-02 00:00: 00 Yes [id number] Take [address] [facility] vit 33-iron-fol ic-dha (SELECT-OB + DHA) 29 mg iron-1 mg -250 mg combo pack 2021-02 2 00:00: 00 Yes [id number] Take [address] [facility] vit 33-iron-fol ic-dha (SELECT-OB + DHA) 29 mg iron-1 mg -250 mg combo pack 2021-02 2 00:00: 00 Yes [id number] Take [address] [facility] vit 33-iron-fol ic-dha (SELECT-OB + DHA) 29 mg iron-1 mg -250 mg combo pack 2021-02 00:00: 00 Yes [id number] Take [address] [facility] vit 33-iron-fol ic-dha (SELECT-OB + DHA) 29 mg iron-1 mg -250 mg combo pack 2021-02 00:00: 00 Yes [id number] Take [address] [facility] vit 33-iron-fol ic-dha (SELECT-OB + DHA) 29 mg iron-1 mg -250 mg combo pack 2021-02 00:00: 00 Yes [id number] Take [address] [facility] vit 33-iron-fol ic-dha (SELECT-OB + DHA) 29 mg iron-1 mg -250 mg combo pack 2021-02 00:00: 00 Yes [id number] Take [address] [facility] vit 33-iron-fol ic-dha (SELECT-OB + DHA) 29 mg iron-1 mg -250 mg combo pack 2021-02 00:00: 00 Yes [id number] Take [address] [facility] proMETHazin e 25 mg tablet 2021-02 00:00: 00 Yes [id number] 25mg Take 1 tablet by mouth every 6 (six) hours as needed for Nausea and Vomiting (N/V). [facility] vit 33-iron-fol ic-dha (SELECT-OB + DHA) 29 mg iron-1 mg -250 mg combo pack 2021-02 00:00: 00 Yes [id number] Take [address] [facility] vit 33-iron-fol ic-dha (SELECT-OB + DHA) 29 mg iron-1 mg -250 mg combo pack 2021-02 2 00:00: 00 Yes [id number] Take [address] [facility] vit 33-iron-fol ic-dha (SELECT-OB + DHA) 29 mg iron-1 mg -250 mg combo pack 2021-02 2 00:00: 00 Yes [id number] Take [address] [facility] vit 33-iron-fol ic-dha (SELECT-OB + DHA) 29 mg iron-1 mg -250 mg combo pack 2021-02 00:00: 00 Yes [id number] Take [address] [facility] vit 33-iron-fol ic-dha (SELECT-OB + DHA) 29 mg iron-1 mg -250 mg combo pack 2021-02 00:00: 00 Yes [id number] Take [address] [facility] proMETHazin e 25 mg tablet 2021-02 00:00: 00 Yes [id number] 25mg Take 1 tablet by mouth every 6 (six) hours as needed for Nausea and Vomiting (N/V). [facility] vit 33-iron-fol ic-dha (SELECT-OB + DHA) 29 mg iron-1 mg -250 mg combo pack 2021-02 00:00: 00 Yes [id number] Take [address] [facility] vit 33-iron-fol ic-dha (SELECT-OB + DHA) 29 mg iron-1 mg -250 mg combo pack 2021-02 00:00: 00 Yes [id number] Take [address] [facility] vit 33-iron-fol ic-dha (SELECT-OB + DHA) 29 mg iron-1 mg -250 mg combo pack 2021-02 00:00: 00 Yes [id number] Take [address] [facility] proMETHazin e 25 mg tablet 2021-02 00:00: 00 Yes [id number] 25mg Take 1 tablet by mouth every 6 (six) hours as needed for Nausea and Vomiting (N/V). [facility] vit 33-iron-fol ic-dha (SELECT-OB + DHA) 29 mg iron-1 mg -250 mg combo pack 2021-02 00:00: 00 Yes [id number] Take [address] [facility] vit 33-iron-fol ic-dha (SELECT-OB + DHA) 29 mg iron-1 mg -250 mg combo pack 2021-02 00:00: 00 Yes [id number] Take [address] [facility] vit 33-iron-fol ic-dha (SELECT-OB + DHA) 29 mg iron-1 mg -250 mg combo pack 2021-02 00:00: 00 Yes [id number] Take [address] [facility] proMETHazin e 25 mg tablet 2021-02 00:00: 00 Yes [id number] 25mg Take 1 tablet by mouth every 6 (six) hours as needed for Nausea and Vomiting (N/V). [facility] vit 33-iron-fol ic-dha (SELECT-OB + DHA) 29 mg iron-1 mg -250 mg combo pack 2021-02 00:00: 00 Yes [id number] Take [address] [facility] vit 33-iron-fol ic-dha (SELECT-OB + DHA) 29 mg iron-1 mg -250 mg combo pack 2021-02 00:00: 00 Yes [id number] Take [address] [facility] vit 33-iron-fol ic-dha (SELECT-OB + DHA) 29 mg iron-1 mg -250 mg combo pack 2021-02 00:00: 00 Yes [id number] Take [address] [facility] vit 33-iron-fol ic-dha (SELECT-OB + DHA) 29 mg iron-1 mg -250 mg combo pack 2021-02 00:00: 00 Yes [id number] Take [address] [facility] proMETHazin e 25 mg tablet 2021-02 00:00: 00 Yes [id number] 25mg Take 1 tablet by mouth every 6 (six) hours as needed for Nausea and Vomiting (N/V). [facility] vit 33-iron-fol ic-dha (SELECT-OB + DHA) 29 mg iron-1 mg -250 mg combo pack 2021-02 00:00: 00 Yes [id number] Take [address] [facility] vit 33-iron-fol ic-dha (SELECT-OB + DHA) 29 mg iron-1 mg -250 mg combo pack 2021-02 00:00: 00 Yes [id number] Take [address] [facility] proMETHazin e 25 mg tablet 2021-02 00:00: 00 Yes [id number] 25mg Take 1 tablet by mouth every 6 (six) hours as needed for Nausea and Vomiting (N/V). [facility] vit 33-iron-fol ic-dha (SELECT-OB + DHA) 29 mg iron-1 mg -250 mg combo pack 2021-02 00:00: 00 Yes [id number] Take [address] [facility] vit 33-iron-fol ic-dha (SELECT-OB + DHA) 29 mg iron-1 mg -250 mg combo pack 2021-02 00:00: 00 Yes [id number] Take [address] [facility] vit 33-iron-fol ic-dha (SELECT-OB + DHA) 29 mg iron-1 mg -250 mg combo pack 2021-02 00:00: 00 Yes [id number] Take [address] [facility] vit 33-iron-fol ic-dha (SELECT-OB + DHA) 29 mg iron-1 mg -250 mg combo pack 2021-02 00:00: 00 Yes [id number] Take [address] [facility] vit 33-iron-fol ic-dha (SELECT-OB + DHA) 29 mg iron-1 mg -250 mg combo pack 2021-02 00:00: 00 Yes [id number] Take [address] [facility] vit 33-iron-fol ic-dha (SELECT-OB + DHA) 29 mg iron-1 mg -250 mg combo pack 2021-02 00:00: 00 Yes [id number] Take [address] [facility] proMETHazin e 25 mg tablet 2021-02 00:00: 00 Yes [id number] 25mg Take 1 tablet by mouth every 6 (six) hours as needed for Nausea and Vomiting (N/V). [facility] vit 33-iron-fol ic-dha (SELECT-OB + DHA) 29 mg iron-1 mg -250 mg combo pack 2021-02 2 00:00: 00 Yes [id number] Take [address] [facility] vit 33-iron-fol ic-dha (SELECT-OB + DHA) 29 mg iron-1 mg -250 mg combo pack 2021-02 2 00:00: 00 Yes [id number] Take [address] [facility] vit 33-iron-fol ic-dha (SELECT-OB + DHA) 29 mg iron-1 mg -250 mg combo pack 2021-02 00:00: 00 Yes [id number] Take [address] [facility] vit 33-iron-fol ic-dha (SELECT-OB + DHA) 29 mg iron-1 mg -250 mg combo pack 2021-02 00:00: 00 Yes [id number] Take [address] [facility] vit 33-iron-fol ic-dha (SELECT-OB + DHA) 29 mg iron-1 mg -250 mg combo pack 2021-02 00:00: 00 Yes [id number] Take [address] [facility] proMETHazin e 25 mg tablet 2021-02 00:00: 00 Yes [id number] 25mg Take 1 tablet by mouth every 6 (six) hours as needed for Nausea and Vomiting (N/V). [facility] vit 33-iron-fol ic-dha (SELECT-OB + DHA) 29 mg iron-1 mg -250 mg combo pack 2021-02 2- 00:00: 00 Yes [id number] Take [address] [facility] vit 33-iron-fol ic-dha (SELECT-OB + DHA) 29 mg iron-1 mg -250 mg combo pack 2021-02 2 00:00: 00 Yes [id number] Take [address] [facility] vit 33-iron-fol ic-dha (SELECT-OB + DHA) 29 mg iron-1 mg -250 mg combo pack 2021-02 2- 00:00: 00 Yes [id number] Take [address] [facility] proMETHazin e 25 mg tablet 2021-02 00:00: 00 Yes [id number] 25mg Take 1 tablet by mouth every 6 (six) hours as needed for Nausea and Vomiting (N/V). [facility] vit 33-iron-fol ic-dha (SELECT-OB + DHA) 29 mg iron-1 mg -250 mg combo pack 2021-02 00:00: 00 Yes [id number] Take [address] [facility] vit 33-iron-fol ic-dha (SELECT-OB + DHA) 29 mg iron-1 mg -250 mg combo pack 2021-02 00:00: 00 Yes [id number] Take [address] [facility] vit 33-iron-fol ic-dha (SELECT-OB + DHA) 29 mg iron-1 mg -250 mg combo pack 2021-02 00:00: 00 Yes [id number] Take [address] [facility] proMETHazin e 25 mg tablet 2021-02 00:00: 00 Yes [id number] 25mg Take 1 tablet by mouth every 6 (six) hours as needed for Nausea and Vomiting (N/V). [facility] vit 33-iron-fol ic-dha (SELECT-OB + DHA) 29 mg iron-1 mg -250 mg combo pack 2021-02 00:00: 00 Yes [id number] Take [address] [facility] proMETHazin e 25 mg tablet 2021-02 00:00: 00 Yes [id number] 25mg Take 1 tablet by mouth every 6 (six) hours as needed for Nausea and Vomiting (N/V). [facility] vit 33-iron-fol ic-dha (SELECT-OB + DHA) 29 mg iron-1 mg -250 mg combo pack 2021-02 00:00: 00 Yes [id number] Take [address] [facility] proMETHazin e 25 mg tablet 2021-02 00:00: 00 Yes [id number] 25mg Take 1 tablet by mouth every 6 (six) hours as needed for Nausea and Vomiting (N/V). [facility] vit 33-iron-fol ic-dha (SELECT-OB + DHA) 29 mg iron-1 mg -250 mg combo pack 2021-02 00:00: 00 Yes [id number] Take [address] [facility] proMETHazin e 25 mg tablet 2021-02 00:00: 00 Yes [id number] 25mg Take 1 tablet by mouth every 6 (six) hours as needed for Nausea and Vomiting (N/V). [facility] vit 33-iron-fol ic-dha (SELECT-OB + DHA) 29 mg iron-1 mg -250 mg combo pack 2021-02 00:00: 00 Yes [id number] Take [address] [facility] proMETHazin e 25 mg tablet 2021-02 00:00: 00 Yes [id number] 25mg Take 1 tablet by mouth every 6 (six) hours as needed for Nausea and Vomiting (N/V). [facility] vit 33-iron-fol ic-dha (SELECT-OB + DHA) 29 mg iron-1 mg -250 mg combo pack 2021-02 00:00: 00 Yes [id number] Take [address] [facility] proMETHazin e 25 mg tablet 2021-02 00:00: 00 Yes [id number] 25mg Take 1 tablet by mouth every 6 (six) hours as needed for Nausea and Vomiting (N/V). [facility] vit 33-iron-fol ic-dha (SELECT-OB + DHA) 29 mg iron-1 mg -250 mg combo pack 2021-02 00:00: 00 Yes [id number] Take [address] [facility] proMETHazin e 25 mg tablet 2021-02 00:00: 00 Yes [id number] 25mg Take 1 tablet by mouth every 6 (six) hours as needed for Nausea and Vomiting (N/V). [facility] vit 33-iron-fol ic-dha (SELECT-OB + DHA) 29 mg iron-1 mg -250 mg combo pack 2021-02 00:00: 00 Yes [id number] Take [address] [facility] proMETHazin e 25 mg tablet 2021-02 00:00: 00 Yes [id number] 25mg Take 1 tablet by mouth every 6 (six) hours as needed for Nausea and Vomiting (N/V). [facility] vit 33-iron-fol ic-dha (SELECT-OB + DHA) 29 mg iron-1 mg -250 mg combo pack 2021-02 00:00: 00 Yes [id number] Take [address] [facility] proMETHazin e 25 mg tablet 2021-02 00:00: 00 Yes [id number] 25mg Take 1 tablet by mouth every 6 (six) hours as needed for Nausea and Vomiting (N/V). [facility] vit 33-iron-fol ic-dha (SELECT-OB + DHA) 29 mg iron-1 mg -250 mg combo pack 2021-02 00:00: 00 Yes [id number] Take [address] [facility] proMETHazin e 25 mg tablet 2021-02 00:00: 00 Yes [id number] 25mg Take 1 tablet by mouth every 6 (six) hours as needed for Nausea and Vomiting (N/V). [facility] vit 33-iron-fol ic-dha (SELECT-OB + DHA) 29 mg iron-1 mg -250 mg combo pack 2021-02 00:00: 00 Yes [id number] Take [address] [facility] proMETHazin e 25 mg tablet 2021-02 00:00: 00 Yes [id number] 25mg Take 1 tablet by mouth every 6 (six) hours as needed for Nausea and Vomiting (N/V). [facility] vit 33-iron-fol ic-dha (SELECT-OB + DHA) 29 mg iron-1 mg -250 mg combo pack 2021-02 2 00:00: 00 Yes [id number] Take [address] [facility] proMETHazin e 25 mg tablet 2021-02 00:00: 00 Yes [id number] 25mg Take 1 tablet by mouth every 6 (six) hours as needed for Nausea and Vomiting (N/V). [facility] vit 33-iron-fol ic-dha (SELECT-OB + DHA) 29 mg iron-1 mg -250 mg combo pack 2021-02 00:00: 00 Yes [id number] Take [address] [facility] proMETHazin e 25 mg tablet 2021-02 00:00: 00 Yes [id number] 25mg Take 1 tablet by mouth every 6 (six) hours as needed for Nausea and Vomiting (N/V). [facility] vit 33-iron-fol ic-dha (SELECT-OB + DHA) 29 mg iron-1 mg -250 mg combo pack 2021-02 00:00: 00 Yes [id number] Take [address] [facility] proMETHazin e 25 mg tablet 2021-02 00:00: 00 Yes [id number] 25mg Take 1 tablet by mouth every 6 (six) hours as needed for Nausea and Vomiting (N/V). [facility] vit 33-iron-fol ic-dha (SELECT-OB + DHA) 29 mg iron-1 mg -250 mg combo pack 2021-02 00:00: 00 Yes [id number] Take [address] [facility] proMETHazin e 25 mg tablet 2021-02 00:00: 00 Yes [id number] 25mg Take 1 tablet by mouth every 6 (six) hours as needed for Nausea and Vomiting (N/V). [facility] vit 33-iron-fol ic-dha (SELECT-OB + DHA) 29 mg iron-1 mg -250 mg combo pack 2021-02 00:00: 00 Yes [id number] Take [address] [facility] proMETHazin e 25 mg tablet 2021-02 00:00: 00 Yes [id number] 25mg Take 1 tablet by mouth every 6 (six) hours as needed for Nausea and Vomiting (N/V). [facility] vit 33-iron-fol ic-dha (SELECT-OB + DHA) 29 mg iron-1 mg -250 mg combo pack 2021-02 00:00: 00 Yes [id number] Take [address] [facility] proMETHazin e 25 mg tablet 2021-02 00:00: 00 Yes [id number] 25mg Take 1 tablet by mouth every 6 (six) hours as needed for Nausea and Vomiting (N/V). [facility] vit 33-iron-fol ic-dha (SELECT-OB + DHA) 29 mg iron-1 mg -250 mg combo pack 2021-02 00:00: 00 Yes [id number] Take [address] [facility] proMETHazin e 25 mg tablet 2021-02 00:00: 00 Yes [id number] 25mg Take 1 tablet by mouth every 6 (six) hours as needed for Nausea and Vomiting (N/V). [facility] vit 33-iron-fol ic-dha (SELECT-OB + DHA) 29 mg iron-1 mg -250 mg combo pack 2021-02 00:00: 00 Yes [id number] Take [address] [facility] proMETHazin e 25 mg tablet 2021-02 00:00: 00 Yes [id number] 25mg Take 1 tablet by mouth every 6 (six) hours as needed for Nausea and Vomiting (N/V). [facility] vit 33-iron-fol ic-dha (SELECT-OB + DHA) 29 mg iron-1 mg -250 mg combo pack 2021-02 00:00: 00 Yes [id number] Take [address] [facility] proMETHazin e 25 mg tablet 2021-02 00:00: 00 Yes [id number] 25mg Take 1 tablet by mouth every 6 (six) hours as needed for Nausea and Vomiting (N/V). [facility] vit 33-iron-fol ic-dha (SELECT-OB + DHA) 29 mg iron-1 mg -250 mg combo pack 2021-02 00:00: 00 Yes [id number] Take [address] [facility] proMETHazin e 25 mg tablet 2021-02 00:00: 00 Yes [id number] 25mg Take 1 tablet by mouth every 6 (six) hours as needed for Nausea and Vomiting (N/V). [facility] vit 33-iron-fol ic-dha (SELECT-OB + DHA) 29 mg iron-1 mg -250 mg combo pack 2021-02 00:00: 00 Yes [id number] Take [address] [facility] proMETHazin e 25 mg tablet 2021-02 00:00: 00 Yes [id number] 25mg Take 1 tablet by mouth every 6 (six) hours as needed for Nausea and Vomiting (N/V). [facility] vit 33-iron-fol ic-dha (SELECT-OB + DHA) 29 mg iron-1 mg -250 mg combo pack 2021-02 00:00: 00 Yes [id number] Take [address] [facility] proMETHazin e 25 mg tablet 2021-02 00:00: 00 Yes [id number] 25mg Take 1 tablet by mouth every 6 (six) hours as needed for Nausea and Vomiting (N/V). [facility] vit 33-iron-fol ic-dha (SELECT-OB + DHA) 29 mg iron-1 mg -250 mg combo pack 2021-02 00:00: 00 Yes [id number] Take [address] [facility] proMETHazin e 25 mg tablet 2021-02 00:00: 00 Yes [id number] 25mg Take 1 tablet by mouth every 6 (six) hours as needed for Nausea and Vomiting (N/V). [facility] vit 33-iron-fol ic-dha (SELECT-OB + DHA) 29 mg iron-1 mg -250 mg combo pack 2021-02 00:00: 00 Yes [id number] Take [address] [facility] proMETHazin e 25 mg tablet 2021-02 00:00: 00 Yes [id number] 25mg Take 1 tablet by mouth every 6 (six) hours as needed for Nausea and Vomiting (N/V). [facility] vit 33-iron-fol ic-dha (SELECT-OB + DHA) 29 mg iron-1 mg -250 mg combo pack 2021-02 00:00: 00 Yes [id number] Take [address] [facility] proMETHazin e 25 mg tablet 2021-02 00:00: 00 Yes [id number] 25mg Take 1 tablet by mouth every 6 (six) hours as needed for Nausea and Vomiting (N/V). [facility] vit 33-iron-fol ic-dha (SELECT-OB + DHA) 29 mg iron-1 mg -250 mg combo pack 2021-02 00:00: 00 Yes [id number] Take [address] [facility] proMETHazin e 25 mg tablet 2021-02 00:00: 00 Yes [id number] 25mg Take 1 tablet by mouth every 6 (six) hours as needed for Nausea and Vomiting (N/V). [facility] vit 33-iron-fol ic-dha (SELECT-OB + DHA) 29 mg iron-1 mg -250 mg combo pack 2021-02 00:00: 00 Yes [id number] Take [address] [facility] proMETHazin e 25 mg tablet 2021-02 00:00: 00 Yes [id number] 25mg Take 1 tablet by mouth every 6 (six) hours as needed for Nausea and Vomiting (N/V). [facility] vit 33-iron-fol ic-dha (SELECT-OB + DHA) 29 mg iron-1 mg -250 mg combo pack 2021-02 00:00: 00 Yes [id number] Take [address] [facility] vit 33-iron-fol ic-dha (SELECT-OB + DHA) 29 mg iron-1 mg -250 mg combo pack 2021-02 00:00: 00 Yes [id number] Take [address] [facility] vit 33-iron-fol ic-dha (SELECT-OB + DHA) 29 mg iron-1 mg -250 mg combo pack 2021-02 00:00: 00 Yes [id number] Take [address] [facility] vit 33-iron-fol ic-dha (SELECT-OB + DHA) 29 mg iron-1 mg -250 mg combo pack 2021-02 00:00: 00 Yes [id number] Take [address] [facility] vit 33-iron-fol ic-dha (SELECT-OB + DHA) 29 mg iron-1 mg -250 mg combo pack 2021-02 00:00: 00 Yes [id number] Take [address] [facility] vit 33-iron-fol ic-dha (SELECT-OB + DHA) 29 mg iron-1 mg -250 mg combo pack 2021-02 00:00: 00 08-29 00:00 :00 No [id number] Take [address] [facility] vit 33-iron-fol ic-dha (SELECT-OB + DHA) 29 mg iron-1 mg -250 mg combo pack 2021-02 00:00: 00 08-29 00:00 :00 No [id number] Take [address] [facility] proMETHazin e 25 mg tablet 2021-02 00:00: 00 06-08 00:00 :00 No [id number] 25mg Take 1 tablet by mouth every 6 (six) hours as needed for Nausea and Vomiting (N/V). [facility] proMETHazin e 25 mg tablet 2021-02 00:00: 00 06-08 00:00 :00 No [id number] 25mg Take 1 tablet by mouth every 6 (six) hours as needed for Nausea and Vomiting (N/V). [facility] No known medications 2020-02 14:27: [address] [facility] No known medications 2020-02 14:27: [address] [facility] No known medications 2020-02 14:27: 36 No No known medication s [facility] No known medications 2020-02 14:27: [address] [facility] phenazopyri dine 200 mg tablet 08-12 00:00: 00 Yes 200mg Take 1 tablet by mouth 3 (three) times daily. [facility] Nitrofurant oin&Nit. Macrocryst (MACROBID) 100 mg capsule 08-12 00:00: 00 Yes 100mg Take 1 capsule by mouth 2 (two) times daily. [facility] naproxen sodium 550 mg tablet 08-12 00:00: 00 Yes 550mg Take 1 tablet by mouth 2 (two) times daily with meals. [facility] phenazopyri dine 200 mg tablet 08-12 00:00: 00 02-10 00:00 :00 No 200mg Take 1 tablet by mouth 3 (three) times daily. [facility] Nitrofurant oin&Nit. Macrocryst (MACROBID) 100 mg capsule 08-12 00:00: 00 02-10 00:00 :00 No 100mg Take 1 capsule by mouth 2 (two) times daily. [facility] naproxen sodium 550 mg tablet 08-12 00:00: 02-10 00:00 :00 No 550mg Take 1 tablet by mouth 2 (two) times daily with meals. [facility] promethazin e-codeine 6.25-10 mg/5 mL syrup 02-25 00:00: 00 Yes 5mL Take 5 mL by mouth 4 (four) times daily as needed for Cough. [facility] traMADOL (ULTRAM) 50 mg tablet 02-25 00:00: 00 Yes 50mg Take 1 tablet by mouth every 6 (six) hours as needed for Pain (scale 4-6). [facility] promethazin e-codeine 6.25-10 mg/5 mL syrup 02-25 00:00: 00 02-10 00:00 :00 No 5mL Take 5 mL by mouth 4 (four) times daily as needed for Cough. [facility] traMADOL (ULTRAM) 50 mg tablet 02-25 00:00: 02-10 00:00 :00 No 50mg Take 1 tablet by mouth every 6 (six) hours as needed for Pain (scale 4-6). [facility] No known medications No Un elizabeth [facility] Immunizations Ordered Immunization Name Filled Immunization Name Date Status Comments Source Varicella (varivax)(chicken pox) 2022-08-29 00:00:00 Completed [facility] Varicella (varivax)(chicken pox) 2022-08-29 00:00:00 Completed [facility] Varicella (varivax)(chicken pox) 2022-08-29 00:00:00 Completed [facility] Influenza Virus Vaccine Quad IM, Preserv and ABX Free 6 MO-64 YRS 2022-03-19 00:00:00 Completed [facility] Influenza Virus Vaccine Quad IM, Preserv and ABX Free 6 MO-64 YRS 2022-03-19 00:00:00 Completed [facility] Influenza Virus Vaccine Quad IM, Preserv and ABX Free 6 MO-64 YRS 2022-03-19 00:00:00 Completed [facility] Influenza Virus Vaccine Quad IM, Preserv and ABX Free 6 MO-64 YRS 2022-03-19 00:00:00 Completed [facility] Influenza Virus Vaccine Quad IM, Preserv and ABX Free 6 MO-64 YRS 2022-03-19 00:00:00 Completed [facility] Influenza Virus Vaccine Quad IM, Preserv and ABX Free 6 MO-64 YRS 2022-03-19 00:00:00 Completed [facility] Influenza Virus Vaccine Quad IM, Preserv and ABX Free 6 MO-64 2022-03-19 00:00:00 Completed [facility] Influenza Virus Vaccine Quad IM, Preserv and ABX Free 6 MO-64 YRS 2022-03-19 00:00:00 Completed [facility] Influenza Virus Vaccine Quad IM, Preserv and ABX Free 6 MO-64 2022-03-19 00:00:00 Completed [facility] Influenza Virus Vaccine Quad IM, Preserv and ABX Free 6 MO-64 YRS 2022-03-19 00:00:00 Completed [facility] Influenza Virus Vaccine Quad IM, Preserv and ABX Free 6 MO-64 YRS 2022-03-19 00:00:00 Completed [facility] Influenza Virus Vaccine Quad IM, Preserv and ABX Free 6 MO-64 YRS 2022-03-19 00:00:00 Completed [facility] Influenza Virus Vaccine Quad IM, Preserv and ABX Free 6 MO-64 YRS 2022-03-19 00:00:00 Completed [facility] Influenza Virus Vaccine Quad IM, Preserv and ABX Free 6 MO-64 YRS 2022-03-19 00:00:00 Completed [facility] Influenza Virus Vaccine Quad IM, Preserv and ABX Free 6 MO-64 YRS 2022-03-19 00:00:00 Completed [facility] Influenza Virus Vaccine Quad IM, Preserv and ABX Free 6 MO-64 YRS 2022-03-19 00:00:00 Completed [facility] Influenza Virus Vaccine Quad IM, Preserv and ABX Free 6 MO-64 YRS 2022-03-19 00:00:00 Completed [facility] Influenza Virus Vaccine Quad IM, Preserv and ABX Free 6 MO-64 YRS 2022-03-19 00:00:00 Completed [facility] Influenza Virus Vaccine Quad IM, Preserv and ABX Free 6 MO-64 YRS 2022-03-19 00:00:00 Completed [facility] Influenza Virus Vaccine Quad IM, Preserv and ABX Free 6 MO-64 YRS 2022-03-19 00:00:00 Completed [facility] Influenza Virus Vaccine Quad IM, Preserv and ABX Free 6 MO-64 YRS 2022-03-19 00:00:00 Completed [facility] Influenza Virus Vaccine Quad IM, Preserv and ABX Free 6 MO-64 YRS 2022-03-19 00:00:00 Completed [facility] Influenza Virus Vaccine Quad IM, Preserv and ABX Free 6 MO-64 YRS 2022-03-19 00:00:00 Completed [facility] Influenza Virus Vaccine Quad IM, Preserv and ABX Free 6 MO-64 YRS 2022-03-19 00:00:00 Completed [facility] Influenza Virus Vaccine Quad IM, Preserv and ABX Free 6 MO-64 YRS 2022-03-19 00:00:00 Completed [facility] Influenza Virus Vaccine Quad IM, Preserv and ABX Free 6 MO-64 YRS 2022-03-19 00:00:00 Completed [facility] Influenza Virus Vaccine Quad IM, Preserv and ABX Free 6 MO-64 YRS 2022-03-19 00:00:00 Completed [facility] Influenza Virus Vaccine Quad IM, Preserv and ABX Free 6 MO-64 YRS 2022-03-19 00:00:00 Completed [facility] Influenza Virus Vaccine Quad IM, Preserv and ABX Free 6 MO-64 YRS 2022-03-19 00:00:00 Completed [facility] Influenza Virus Vaccine Quad IM, Preserv and ABX Free 6 MO-64 YRS 2022-03-19 00:00:00 Completed [facility] Influenza Virus Vaccine Quad IM, Preserv and ABX Free 6 MO-64 YRS 2022-03-19 00:00:00 Completed [facility] Influenza Virus Vaccine Quad IM, Preserv and ABX Free 6 MO-64 YRS 2022-03-19 00:00:00 Completed [facility] Influenza Virus Vaccine Quad IM, Preserv and ABX Free 6 MO-64 YRS 2022-03-19 00:00:00 Completed [facility] Influenza Virus Vaccine Quad IM, Preserv and ABX Free 6 MO-64 YRS 2022-03-19 00:00:00 Completed [facility] Influenza Virus Vaccine Quad IM, Preserv and ABX Free 6 MO-64 YRS 2022-03-19 00:00:00 Completed [facility] Influenza Virus Vaccine Quad IM, Preserv and ABX Free 6 MO-64 YRS 2022-03-19 00:00:00 Completed [facility] Influenza Virus Vaccine Quad IM, Preserv and ABX Free 6 MO-64 YRS 2022-03-19 00:00:00 Completed [facility] Influenza Virus Vaccine Quad IM, Preserv and ABX Free 6 MO-64 YRS 2022-03-19 00:00:00 Completed [facility] Influenza Virus Vaccine Quad IM, Preserv and ABX Free 6 MO-64 YRS 2022-03-19 00:00:00 Completed [facility] Influenza Virus Vaccine Quad IM, Preserv and ABX Free 6 MO-64 YRS 2022-03-19 00:00:00 Completed [facility] Influenza Virus Vaccine Quad IM, Preserv and ABX Free 6 MO-64 YRS 2022-03-19 00:00:00 Completed [facility] Influenza Virus Vaccine Quad IM, Preserv and ABX Free 6 MO-64 YRS 2022-03-19 00:00:00 Completed [facility] Influenza Virus Vaccine Quad IM, Preserv and ABX Free 6 MO-64 YRS 2022-03-19 00:00:00 Completed [facility] Influenza Virus Vaccine Quad IM, Preserv and ABX Free 6 MO-64 YRS 2022-03-19 00:00:00 Completed [facility] Influenza Virus Vaccine Quad IM, Preserv and ABX Free 6 MO-64 YRS 2022-03-19 00:00:00 Completed [facility] Influenza Virus Vaccine Quad IM, Preserv and ABX Free 6 MO-64 YRS 2022-03-19 00:00:00 Completed [facility] Influenza Virus Vaccine Quad IM, Preserv and ABX Free 6 MO-64 YRS 2022-03-19 00:00:00 Completed [facility] Influenza Virus Vaccine Quad IM, Preserv and ABX Free 6 MO-64 YRS 2022-03-19 00:00:00 Completed [facility] Influenza Virus Vaccine Quad IM, Preserv and ABX Free 6 MO-64 YRS 2022-03-19 00:00:00 Completed [facility] Influenza Virus Vaccine Quad IM, Preserv and ABX Free 6 MO-64 YRS 2022-03-19 00:00:00 Completed [facility] Influenza Virus Vaccine Quad IM, Preserv and ABX Free 6 MO-64 YRS 2022-03-19 00:00:00 Completed [facility] Influenza Virus Vaccine Quad IM, Preserv and ABX Free 6 MO-64 YRS 2022-03-19 00:00:00 Completed [facility] Influenza Virus Vaccine Quad IM, Preserv and ABX Free 6 MO-64 YRS 2022-03-19 00:00:00 Completed [facility] Influenza Virus Vaccine Quad IM, Preserv and ABX Free 6 MO-64 YRS 2022-03-19 00:00:00 Completed [facility] Influenza Virus Vaccine Quad IM, Preserv and ABX Free 6 MO-64 YRS 2022-03-19 00:00:00 Completed [facility] Influenza Virus Vaccine Quad IM, Preserv and ABX Free 6 MO-64 YRS 2022-03-19 00:00:00 Completed [facility] Influenza Virus Vaccine Quad IM, Preserv and ABX Free 6 MO-64 YRS 2022-03-19 00:00:00 Completed [facility] Influenza Virus Vaccine Quad IM, Preserv and ABX Free 6 MO-64 YRS 2022-03-19 00:00:00 Completed [facility] Influenza Virus Vaccine Quad IM, Preserv and ABX Free 6 MO-64 YRS 2022-03-19 00:00:00 Completed [facility] Influenza Virus Vaccine Quad IM, Preserv and ABX Free 6 MO-64 YRS 2022-03-19 00:00:00 Completed [facility] Influenza Virus Vaccine Quad IM, Preserv and ABX Free 6 MO-64 YRS 2022-03-19 00:00:00 Completed [facility] Influenza Virus Vaccine Quad IM, Preserv and ABX Free 6 MO-64 YRS 2022-03-19 00:00:00 Completed [facility] Influenza Virus Vaccine Quad IM, Preserv and ABX Free 6 MO-64 YRS 2022-03-19 00:00:00 Completed [facility] Influenza Virus Vaccine Quad IM, Preserv and ABX Free 6 MO-64 YRS 2022-03-19 00:00:00 Completed [facility] Influenza Virus Vaccine Quad IM, Preserv and ABX Free 6 MO-64 YRS 2022-03-19 00:00:00 Completed [facility] Influenza Virus Vaccine Quad IM, Preserv and ABX Free 6 MO-64 YRS 2022-03-19 00:00:00 Completed [facility] SARS-COV-2 COVID-19 PFIZER VACCINE 2020-11-13 00:00:00 Completed [facility] SARS-COV-2 COVID-19 PFIZER VACCINE 2020-11-13 00:00:00 Completed [facility] SARS-COV-2 COVID-19 PFIZER VACCINE 2020-11-13 00:00:00 Completed [facility] SARS-COV-2 COVID-19 PFIZER VACCINE 2020-11-13 00:00:00 Completed [facility] SARS-COV-2 COVID-19 PFIZER VACCINE 2020-11-13 00:00:00 Completed [facility] SARS-COV-2 COVID-19 PFIZER VACCINE 2020-11-13 00:00:00 Completed [facility] SARS-COV-2 COVID-19 PFIZER VACCINE 2020-11-13 00:00:00 Completed [facility] SARS-COV-2 COVID-19 PFIZER VACCINE 2020-11-13 00:00:00 Completed [facility] SARS-COV-2 COVID-19 PFIZER VACCINE 2020-11-13 00:00:00 Completed [facility] SARS-COV-2 COVID-19 PFIZER VACCINE 2020-11-13 00:00:00 Completed [facility] SARS-COV-2 COVID-19 PFIZER VACCINE 2020-11-13 00:00:00 Completed [facility] SARS-COV-2 COVID-19 PFIZER VACCINE 2020-11-13 00:00:00 Completed [facility] SARS-COV-2 COVID-19 PFIZER VACCINE 2020-11-13 00:00:00 Completed [facility] SARS-COV-2 COVID-19 PFIZER VACCINE 2020-11-13 00:00:00 Completed [facility] SARS-COV-2 COVID-19 PFIZER VACCINE 2020-11-13 00:00:00 Completed [facility] SARS-COV-2 COVID-19 PFIZER VACCINE 2020-11-13 00:00:00 Completed [facility] SARS-COV-2 COVID-19 PFIZER VACCINE 2020-11-13 00:00:00 Completed [facility] SARS-COV-2 COVID-19 PFIZER VACCINE 2020-11-13 00:00:00 Completed [facility] SARS-COV-2 COVID-19 PFIZER VACCINE 2020-11-13 00:00:00 Completed [facility] SARS-COV-2 COVID-19 PFIZER VACCINE 2020-11-13 00:00:00 Completed [facility] SARS-COV-2 COVID-19 PFIZER VACCINE 2020-11-13 00:00:00 Completed [facility] SARS-COV-2 COVID-19 PFIZER VACCINE 2020-11-13 00:00:00 Completed [facility] SARS-COV-2 COVID-19 PFIZER VACCINE 2020-11-13 00:00:00 Completed [facility] SARS-COV-2 COVID-19 PFIZER VACCINE 2020-11-13 00:00:00 Completed [facility] SARS-COV-2 COVID-19 PFIZER VACCINE 2020-11-13 00:00:00 Completed [facility] SARS-COV-2 COVID-19 PFIZER VACCINE 2020-11-13 00:00:00 Completed [facility] SARS-COV-2 COVID-19 PFIZER VACCINE 2020-11-13 00:00:00 Completed [facility] SARS-COV-2 COVID-19 PFIZER VACCINE 2020-11-13 00:00:00 Completed [facility] SARS-COV-2 COVID-19 PFIZER VACCINE 2020-11-13 00:00:00 Completed [facility] SARS-COV-2 COVID-19 PFIZER VACCINE 2020-11-13 00:00:00 Completed [facility] SARS-COV-2 COVID-19 PFIZER VACCINE 2020-11-13 00:00:00 Completed [facility] SARS-COV-2 COVID-19 PFIZER VACCINE 2020-11-13 00:00:00 Completed [facility] SARS-COV-2 COVID-19 PFIZER VACCINE 2020-11-13 00:00:00 Completed [facility] SARS-COV-2 COVID-19 PFIZER VACCINE 2020-11-13 00:00:00 Completed [facility] SARS-COV-2 COVID-19 PFIZER VACCINE 2020-11-13 00:00:00 Completed [facility] SARS-COV-2 COVID-19 PFIZER VACCINE 2020-11-13 00:00:00 Completed [facility] SARS-COV-2 COVID-19 PFIZER VACCINE 2020-11-13 00:00:00 Completed [facility] SARS-COV-2 COVID-19 PFIZER VACCINE 2020-11-13 00:00:00 Completed [facility] SARS-COV-2 COVID-19 PFIZER VACCINE 2020-11-13 00:00:00 Completed [facility] SARS-COV-2 COVID-19 PFIZER VACCINE 2020-11-13 00:00:00 Completed [facility] SARS-COV-2 COVID-19 PFIZER VACCINE 2020-11-13 00:00:00 Completed [facility] SARS-COV-2 COVID-19 PFIZER VACCINE 2020-11-13 00:00:00 Completed [facility] SARS-COV-2 COVID-19 PFIZER VACCINE 2020-11-13 00:00:00 Completed [facility] SARS-COV-2 COVID-19 PFIZER VACCINE 2020-11-13 00:00:00 Completed [facility] SARS-COV-2 COVID-19 PFIZER VACCINE 2020-11-13 00:00:00 Completed [facility] SARS-COV-2 COVID-19 PFIZER VACCINE 2020-11-13 00:00:00 Completed [facility] SARS-COV-2 COVID-19 PFIZER VACCINE 2020-11-13 00:00:00 Completed [facility] SARS-COV-2 COVID-19 PFIZER VACCINE 2020-11-13 00:00:00 Completed [facility] SARS-COV-2 COVID-19 PFIZER VACCINE 2020-11-13 00:00:00 Completed [facility] SARS-COV-2 COVID-19 PFIZER VACCINE 2020-11-13 00:00:00 Completed [facility] SARS-COV-2 COVID-19 PFIZER VACCINE 2020-11-13 00:00:00 Completed [facility] SARS-COV-2 COVID-19 PFIZER VACCINE 2020-11-13 00:00:00 Completed [facility] SARS-COV-2 COVID-19 PFIZER VACCINE 2020-11-13 00:00:00 Completed [facility] SARS-COV-2 COVID-19 PFIZER VACCINE 2020-11-13 00:00:00 Completed [facility] SARS-COV-2 COVID-19 PFIZER VACCINE 2020-11-13 00:00:00 Completed [facility] SARS-COV-2 COVID-19 PFIZER VACCINE 2020-11-13 00:00:00 Completed [facility] SARS-COV-2 COVID-19 PFIZER VACCINE 2020-11-13 00:00:00 Completed [facility] SARS-COV-2 COVID-19 PFIZER VACCINE 2020-11-13 00:00:00 Completed [facility] SARS-COV-2 COVID-19 PFIZER VACCINE 2020-11-13 00:00:00 Completed [facility] SARS-COV-2 COVID-19 PFIZER VACCINE 2020-11-13 00:00:00 Completed [facility] SARS-COV-2 COVID-19 PFIZER VACCINE 2020-11-13 00:00:00 Completed [facility] SARS-COV-2 COVID-19 PFIZER VACCINE 2020-11-13 00:00:00 Completed [facility] SARS-COV-2 COVID-19 PFIZER VACCINE 2020-11-13 00:00:00 Completed [facility] SARS-COV-2 COVID-19 PFIZER VACCINE 2020-11-13 00:00:00 Completed [facility] SARS-COV-2 COVID-19 PFIZER VACCINE 2020-11-13 00:00:00 Completed [facility] SARS-COV-2 COVID-19 PFIZER VACCINE 2020-11-13 00:00:00 Completed [facility] SARS-COV-2 COVID-19 PFIZER VACCINE 2020-11-13 00:00:00 Completed [facility] SARS-COV-2 COVID-19 PFIZER VACCINE 2020-11-13 00:00:00 Completed [facility] SARS-COV-2 COVID-19 PFIZER VACCINE 2020-11-13 00:00:00 Completed [facility] SARS-COV-2 COVID-19 PFIZER VACCINE 2020-11-13 00:00:00 Completed [facility] SARS-COV-2 COVID-19 PFIZER VACCINE 2020-10-23 00:00:00 Completed [facility] SARS-COV-2 COVID-19 PFIZER VACCINE 2020-10-23 00:00:00 Completed [facility] SARS-COV-2 COVID-19 PFIZER VACCINE 2020-10-23 00:00:00 Completed [facility] SARS-COV-2 COVID-19 PFIZER VACCINE 2020-10-23 00:00:00 Completed [facility] SARS-COV-2 COVID-19 PFIZER VACCINE 2020-10-23 00:00:00 Completed [facility] SARS-COV-2 COVID-19 PFIZER VACCINE 2020-10-23 00:00:00 Completed [facility] SARS-COV-2 COVID-19 PFIZER VACCINE 2020-10-23 00:00:00 Completed [facility] SARS-COV-2 COVID-19 PFIZER VACCINE 2020-10-23 00:00:00 Completed [facility] SARS-COV-2 COVID-19 PFIZER VACCINE 2020-10-23 00:00:00 Completed [facility] SARS-COV-2 COVID-19 PFIZER VACCINE 2020-10-23 00:00:00 Completed [facility] SARS-COV-2 COVID-19 PFIZER VACCINE 2020-10-23 00:00:00 Completed [facility] SARS-COV-2 COVID-19 PFIZER VACCINE 2020-10-23 00:00:00 Completed [facility] SARS-COV-2 COVID-19 PFIZER VACCINE 2020-10-23 00:00:00 Completed [facility] SARS-COV-2 COVID-19 PFIZER VACCINE 2020-10-23 00:00:00 Completed [facility] SARS-COV-2 COVID-19 PFIZER VACCINE 2020-10-23 00:00:00 Completed [facility] SARS-COV-2 COVID-19 PFIZER VACCINE 2020-10-23 00:00:00 Completed [facility] SARS-COV-2 COVID-19 PFIZER VACCINE 2020-10-23 00:00:00 Completed [facility] SARS-COV-2 COVID-19 PFIZER VACCINE 2020-10-23 00:00:00 Completed [facility] SARS-COV-2 COVID-19 PFIZER VACCINE 2020-10-23 00:00:00 Completed [facility] SARS-COV-2 COVID-19 PFIZER VACCINE 2020-10-23 00:00:00 Completed [facility] SARS-COV-2 COVID-19 PFIZER VACCINE 2020-10-23 00:00:00 Completed [facility] SARS-COV-2 COVID-19 PFIZER VACCINE 2020-10-23 00:00:00 Completed [facility] SARS-COV-2 COVID-19 PFIZER VACCINE 2020-10-23 00:00:00 Completed [facility] SARS-COV-2 COVID-19 PFIZER VACCINE 2020-10-23 00:00:00 Completed [facility] SARS-COV-2 COVID-19 PFIZER VACCINE 2020-10-23 00:00:00 Completed [facility] SARS-COV-2 COVID-19 PFIZER VACCINE 2020-10-23 00:00:00 Completed [facility] SARS-COV-2 COVID-19 PFIZER VACCINE 2020-10-23 00:00:00 Completed [facility] SARS-COV-2 COVID-19 PFIZER VACCINE 2020-10-23 00:00:00 Completed [facility] SARS-COV-2 COVID-19 PFIZER VACCINE 2020-10-23 00:00:00 Completed [facility] SARS-COV-2 COVID-19 PFIZER VACCINE 2020-10-23 00:00:00 Completed [facility] SARS-COV-2 COVID-19 PFIZER VACCINE 2020-10-23 00:00:00 Completed [facility] SARS-COV-2 COVID-19 PFIZER VACCINE 2020-10-23 00:00:00 Completed [facility] SARS-COV-2 COVID-19 PFIZER VACCINE 2020-10-23 00:00:00 Completed [facility] SARS-COV-2 COVID-19 PFIZER VACCINE 2020-10-23 00:00:00 Completed [facility] SARS-COV-2 COVID-19 PFIZER VACCINE 2020-10-23 00:00:00 Completed [facility] SARS-COV-2 COVID-19 PFIZER VACCINE 2020-10-23 00:00:00 Completed [facility] SARS-COV-2 COVID-19 PFIZER VACCINE 2020-10-23 00:00:00 Completed [facility] SARS-COV-2 COVID-19 PFIZER VACCINE 2020-10-23 00:00:00 Completed [facility] SARS-COV-2 COVID-19 PFIZER VACCINE 2020-10-23 00:00:00 Completed [facility] SARS-COV-2 COVID-19 PFIZER VACCINE 2020-10-23 00:00:00 Completed [facility] SARS-COV-2 COVID-19 PFIZER VACCINE 2020-10-23 00:00:00 Completed [facility] SARS-COV-2 COVID-19 PFIZER VACCINE 2020-10-23 00:00:00 Completed [facility] SARS-COV-2 COVID-19 PFIZER VACCINE 2020-10-23 00:00:00 Completed [facility] SARS-COV-2 COVID-19 PFIZER VACCINE 2020-10-23 00:00:00 Completed [facility] SARS-COV-2 COVID-19 PFIZER VACCINE 2020-10-23 00:00:00 Completed [facility] SARS-COV-2 COVID-19 PFIZER VACCINE 2020-10-23 00:00:00 Completed [facility] SARS-COV-2 COVID-19 PFIZER VACCINE 2020-10-23 00:00:00 Completed [facility] SARS-COV-2 COVID-19 PFIZER VACCINE 2020-10-23 00:00:00 Completed [facility] SARS-COV-2 COVID-19 PFIZER VACCINE 2020-10-23 00:00:00 Completed [facility] SARS-COV-2 COVID-19 PFIZER VACCINE 2020-10-23 00:00:00 Completed [facility] SARS-COV-2 COVID-19 PFIZER VACCINE 2020-10-23 00:00:00 Completed [facility] SARS-COV-2 COVID-19 PFIZER VACCINE 2020-10-23 00:00:00 Completed [facility] SARS-COV-2 COVID-19 PFIZER VACCINE 2020-10-23 00:00:00 Completed [facility] SARS-COV-2 COVID-19 PFIZER VACCINE 2020-10-23 00:00:00 Completed [facility] SARS-COV-2 COVID-19 PFIZER VACCINE 2020-10-23 00:00:00 Completed [facility] SARS-COV-2 COVID-19 PFIZER VACCINE 2020-10-23 00:00:00 Completed [facility] SARS-COV-2 COVID-19 PFIZER VACCINE 2020-10-23 00:00:00 Completed [facility] SARS-COV-2 COVID-19 PFIZER VACCINE 2020-10-23 00:00:00 Completed [facility] SARS-COV-2 COVID-19 PFIZER VACCINE 2020-10-23 00:00:00 Completed [facility] SARS-COV-2 COVID-19 PFIZER VACCINE 2020-10-23 00:00:00 Completed [facility] SARS-COV-2 COVID-19 PFIZER VACCINE 2020-10-23 00:00:00 Completed [facility] SARS-COV-2 COVID-19 PFIZER VACCINE 2020-10-23 00:00:00 Completed [facility] SARS-COV-2 COVID-19 PFIZER VACCINE 2020-10-23 00:00:00 Completed [facility] SARS-COV-2 COVID-19 PFIZER VACCINE 2020-10-23 00:00:00 Completed [facility] SARS-COV-2 COVID-19 PFIZER VACCINE 2020-10-23 00:00:00 Completed [facility] SARS-COV-2 COVID-19 PFIZER VACCINE 2020-10-23 00:00:00 Completed [facility] SARS-COV-2 COVID-19 PFIZER VACCINE 2020-10-23 00:00:00 Completed [facility] SARS-COV-2 COVID-19 PFIZER VACCINE 2020-10-23 00:00:00 Completed [facility] SARS-COV-2 COVID-19 PFIZER VACCINE 2020-10-23 00:00:00 Completed [facility] SARS-COV-2 COVID-19 PFIZER VACCINE 2020-10-23 00:00:00 Completed [facility] Influenza Virus Vaccine Quad IM 2016-11-18 00:00:00 Completed [facility] Influenza Virus Vaccine Quad IM 2016-11-18 00:00:00 Completed [facility] Influenza Virus Vaccine Quad IM 2016-11-18 00:00:00 Completed [facility] Influenza Virus Vaccine Quad IM 2016-11-18 00:00:00 Completed [facility] Influenza Virus Vaccine Quad IM 2016-11-18 00:00:00 Completed [facility] Influenza Virus Vaccine Quad IM 2016-11-18 00:00:00 Completed [facility] Influenza Virus Vaccine Quad IM 2016-11-18 00:00:00 Completed [facility] Influenza Virus Vaccine Quad IM 2016-11-18 00:00:00 Completed [facility] Influenza Virus Vaccine Quad IM 3+ YRS 2016-11-18 00:00:00 Completed [facility] Influenza Virus Vaccine Quad IM 3+ YRS 2016-11-18 00:00:00 Completed [facility] Influenza Virus Vaccine Quad IM 3+ YRS 2016-11-18 00:00:00 Completed [facility] Influenza Virus Vaccine Quad IM 3+ YRS 2016-11-18 00:00:00 Completed [facility] Influenza Virus Vaccine Quad IM 3+ YRS 2016-11-18 00:00:00 Completed [facility] Influenza Virus Vaccine Quad IM 3+ YRS 2016-11-18 00:00:00 Completed [facility] Influenza Virus Vaccine Quad IM 3+ YRS 2016-11-18 00:00:00 Completed [facility] Influenza Virus Vaccine Quad IM 3+ YRS 2016-11-18 00:00:00 Completed [facility] Influenza Virus Vaccine Quad IM 3+ YRS 2016-11-18 00:00:00 Completed [facility] Influenza Virus Vaccine Quad IM 3+ YRS 2016-11-18 00:00:00 Completed [facility] Influenza Virus Vaccine Quad IM 3+ YRS 2016-11-18 00:00:00 Completed [facility] Influenza Virus Vaccine Quad IM 3+ YRS 2016-11-18 00:00:00 Completed [facility] Influenza Virus Vaccine Quad IM 3+ YRS 2016-11-18 00:00:00 Completed [facility] Influenza Virus Vaccine Quad IM 3+ YRS 2016-11-18 00:00:00 Completed [facility] Influenza Virus Vaccine Quad IM 3+ YRS 2016-11-18 00:00:00 Completed [facility] Influenza Virus Vaccine Quad IM 3+ YRS 2016-11-18 00:00:00 Completed [facility] Influenza Virus Vaccine Quad IM 3+ YRS 2016-11-18 00:00:00 Completed [facility] Influenza Virus Vaccine Quad IM 3+ YRS 2016-11-18 00:00:00 Completed [facility] Influenza Virus Vaccine Quad IM 3+ YRS 2016-11-18 00:00:00 Completed [facility] Influenza Virus Vaccine Quad IM 3+ YRS 2016-11-18 00:00:00 Completed [facility] Influenza Virus Vaccine Quad IM 3+ YRS 2016-11-18 00:00:00 Completed [facility] Influenza Virus Vaccine Quad IM 3+ YRS 2016-11-18 00:00:00 Completed [facility] Influenza Virus Vaccine Quad IM 3+ YRS 2016-11-18 00:00:00 Completed [facility] Influenza Virus Vaccine Quad IM 3+ YRS 2016-11-18 00:00:00 Completed [facility] [place] Influenza Virus Vaccine Quad IM 3+ YRS 2016-11-18 00:00:00 Completed [facility] Influenza Virus Vaccine Quad IM 3+ YRS 2016-11-18 00:00:00 Completed [facility] Influenza Virus Vaccine Quad IM 3+ YRS 2016-11-18 00:00:00 Completed [facility] Influenza Virus Vaccine Quad IM 3+ YRS 2016-11-18 00:00:00 Completed [facility] Influenza Virus Vaccine Quad IM 3+ YRS 2016-11-18 00:00:00 Completed [facility] Influenza Virus Vaccine Quad IM 3+ YRS 2016-11-18 00:00:00 Completed [facility] Influenza Virus Vaccine Quad IM 3+ YRS 2016-11-18 00:00:00 Completed [facility] Influenza Virus Vaccine Quad IM 3+ YRS 2016-11-18 00:00:00 Completed [facility] Influenza Virus Vaccine Quad IM 3+ YRS 2016-11-18 00:00:00 Completed [facility] Influenza Virus Vaccine Quad IM 3+ YRS 2016-11-18 00:00:00 Completed [facility] Influenza Virus Vaccine Quad IM 3+ YRS 2016-11-18 00:00:00 Completed [facility] Influenza Virus Vaccine Quad IM 3+ YRS 2016-11-18 00:00:00 Completed [facility] Influenza Virus Vaccine Quad IM 3+ YRS 2016-11-18 00:00:00 Completed [facility] Influenza Virus Vaccine Quad IM 3+ YRS 2016-11-18 00:00:00 Completed [facility] Influenza Virus Vaccine Quad IM 3+ YRS 2016-11-18 00:00:00 Completed [facility] Influenza Virus Vaccine Quad IM 3+ YRS 2016-11-18 00:00:00 Completed [facility] Influenza Virus Vaccine Quad IM 3+ YRS 2016-11-18 00:00:00 Completed [facility] Influenza Virus Vaccine Quad IM 3+ YRS 2016-11-18 00:00:00 Completed [facility] Influenza Virus Vaccine Quad IM 3+ YRS 2016-11-18 00:00:00 Completed [facility] Influenza Virus Vaccine Quad IM 3+ YRS 2016-11-18 00:00:00 Completed [facility] Influenza Virus Vaccine Quad IM 3+ YRS 2016-11-18 00:00:00 Completed [facility] Influenza Virus Vaccine Quad IM 3+ YRS 2016-11-18 00:00:00 Completed [facility] Influenza Virus Vaccine Quad IM 3+ YRS 2016-11-18 00:00:00 Completed [facility] Influenza Virus Vaccine Quad IM 3+ YRS 2016-11-18 00:00:00 Completed [facility] Influenza Virus Vaccine Quad IM 3+ YRS 2016-11-18 00:00:00 Completed [facility] Influenza Virus Vaccine Quad IM 3+ YRS 2016-11-18 00:00:00 Completed [facility] Influenza Virus Vaccine Quad IM 3+ YRS 2016-11-18 00:00:00 Completed [facility] Influenza Virus Vaccine Quad IM 3+ YRS 2016-11-18 00:00:00 Completed [facility] Influenza Virus Vaccine Quad IM 3+ YRS 2016-11-18 00:00:00 Completed [facility] Influenza Virus Vaccine Quad IM 3+ YRS 2016-11-18 00:00:00 Completed [facility] Influenza Virus Vaccine Quad IM 3+ YRS 2016-11-18 00:00:00 Completed [facility] Influenza Virus Vaccine Quad IM 3+ YRS 2016-11-18 00:00:00 Completed [facility] Influenza Virus Vaccine Quad IM 3+ YRS 2016-11-18 00:00:00 Completed [facility] Influenza Virus Vaccine Quad IM 3+ YRS 2016-11-18 00:00:00 Completed [facility] Influenza Virus Vaccine Quad IM 3+ YRS 2016-11-18 00:00:00 Completed [facility] Influenza Virus Vaccine Quad IM 3+ YRS 2016-11-18 00:00:00 Completed [facility] Influenza Virus Vaccine Quad IM 3+ YRS 2016-11-18 00:00:00 Completed [facility] Influenza Virus Vaccine Quad IM 3+ YRS 2016-11-18 00:00:00 Completed [facility] Influenza Virus Vaccine Quad IM 3+ YRS 2016-11-18 00:00:00 Completed [facility] Influenza Virus Vaccine Quad IM 3+ YRS 2016-11-18 00:00:00 Completed [facility] Influenza Virus Vaccine Quad IM 3+ YRS 2016-11-18 00:00:00 Completed [facility] Influenza Virus Vaccine Quad IM 3+ YRS 2016-11-18 00:00:00 Completed [facility] Influenza Virus Vaccine Quad IM 3+ YRS 2016-11-18 00:00:00 Completed [facility] Influenza Virus Vaccine Quad IM 3+ YRS 2016-11-18 00:00:00 Completed [facility] Influenza Virus Vaccine Quad IM 3+ YRS 2016-11-18 00:00:00 Completed [facility] Influenza Virus Vaccine Quad IM 3+ YRS 2016-11-18 00:00:00 Completed [facility] Influenza Virus Vaccine Quad IM 3+ YRS 2016-11-18 00:00:00 Completed [facility] Influenza Virus Vaccine Quad IM 3+ YRS 2016-11-18 00:00:00 Completed [facility] Influenza Virus Vaccine Quad IM 3+ YRS 2016-11-18 00:00:00 Completed [facility] Influenza Virus Vaccine Quad IM 3+ YRS 2016-11-18 00:00:00 Completed [facility] Influenza Virus Vaccine Quad IM 3+ YRS 2016-11-18 00:00:00 Completed [facility] Influenza Virus Vaccine Quad IM 3+ YRS 2016-11-18 00:00:00 Completed [facility] Influenza Virus Vaccine Quad IM 3+ YRS 2016-11-18 00:00:00 Completed [facility] HPV9 2016-04-06 00:00:00 Completed [facility] HPV9 2016-04-06 00:00:00 Completed [facility] HPV9 2016-04-06 00:00:00 Completed [facility] HPV9 2016-04-06 00:00:00 Completed [facility] HPV9 2016-04-06 00:00:00 Completed [facility] HPV9 2016-04-06 00:00:00 Completed [facility] HPV9 2016-04-06 00:00:00 Completed [facility] HPV9 2016-04-06 00:00:00 Completed [facility] HPV9 2016-04-06 00:00:00 Completed [facility] HPV9 2016-04-06 00:00:00 Completed [facility] HPV9 2016-04-06 00:00:00 Completed [facility] HPV9 2016-04-06 00:00:00 Completed [facility] HPV9 2016-04-06 00:00:00 Completed [facility] HPV9 2016-04-06 00:00:00 Completed [facility] HPV9 2016-04-06 00:00:00 Completed [facility] HPV9 2016-04-06 00:00:00 Completed [facility] HPV9 2016-04-06 00:00:00 Completed [facility] HPV9 2016-04-06 00:00:00 Completed [facility] HPV9 2016-04-06 00:00:00 Completed [facility] HPV9 2016-04-06 00:00:00 Completed [facility] HPV9 2016-04-06 00:00:00 Completed [facility] HPV9 2016-04-06 00:00:00 Completed [facility] HPV9 2016-04-06 00:00:00 Completed [facility] HPV9 2016-04-06 00:00:00 Completed [facility] HPV9 2016-04-06 00:00:00 Completed [facility] HPV9 2016-04-06 00:00:00 Completed [facility] HPV9 2016-04-06 00:00:00 Completed [facility] HPV9 2016-04-06 00:00:00 Completed [facility] HPV9 2016-04-06 00:00:00 Completed [facility] HPV9 2016-04-06 00:00:00 Completed [facility] HPV9 2016-04-06 00:00:00 Completed [facility] HPV9 2016-04-06 00:00:00 Completed [facility] HPV9 2016-04-06 00:00:00 Completed [facility] HPV9 2016-04-06 00:00:00 Completed [facility] HPV9 2016-04-06 00:00:00 Completed [facility] HPV9 2016-04-06 00:00:00 Completed [facility] HPV9 2016-04-06 00:00:00 Completed [facility] HPV9 2016-04-06 00:00:00 Completed [facility] HPV9 2016-04-06 00:00:00 Completed [facility] HPV9 2016-04-06 00:00:00 Completed [facility] HPV9 2016-04-06 00:00:00 Completed [facility] HPV9 2016-04-06 00:00:00 Completed [facility] HPV9 2016-04-06 00:00:00 Completed [facility] HPV9 2016-04-06 00:00:00 Completed [facility] HPV9 2016-04-06 00:00:00 Completed [facility] HPV9 2016-04-06 00:00:00 Completed [facility] HPV9 2016-04-06 00:00:00 Completed [facility] HPV9 2016-04-06 00:00:00 Completed [facility] HPV9 2016-04-06 00:00:00 Completed [facility] HPV9 2016-04-06 00:00:00 Completed [facility] HPV9 2016-04-06 00:00:00 Completed [facility] HPV9 2016-04-06 00:00:00 Completed [facility] HPV9 2016-04-06 00:00:00 Completed [facility] HPV9 2016-04-06 00:00:00 Completed [facility] HPV9 2016-04-06 00:00:00 Completed [facility] HPV9 2016-04-06 00:00:00 Completed [facility] HPV9 2016-04-06 00:00:00 Completed [facility] HPV9 2016-04-06 00:00:00 Completed [facility] HPV9 2016-04-06 00:00:00 Completed [facility] HPV9 2016-04-06 00:00:00 Completed [facility] HPV9 2016-04-06 00:00:00 Completed [facility] HPV9 2016-04-06 00:00:00 Completed [facility] HPV9 2016-04-06 00:00:00 Completed [facility] HPV9 2016-04-06 00:00:00 Completed [facility] HPV9 2016-04-06 00:00:00 Completed [facility] HPV9 2016-04-06 00:00:00 Completed [facility] HPV9 2016-04-06 00:00:00 Completed [facility] HPV9 2016-04-06 00:00:00 Completed [facility] HPV9 2016-04-06 00:00:00 Completed [facility] HPV9 2016-04-06 00:00:00 Completed [facility] HPV9 2016-04-06 00:00:00 Completed [facility] HPV9 2016-04-06 00:00:00 Completed [facility] HPV9 2016-04-06 00:00:00 Completed [facility] HPV9 2016-04-06 00:00:00 Completed [facility] HPV9 2016-04-06 00:00:00 Completed [facility] HPV9 2016-04-06 00:00:00 Completed [facility] HPV9 2016-04-06 00:00:00 Completed [facility] HPV9 2016-04-06 00:00:00 Completed [facility] HPV9 2016-04-06 00:00:00 Completed [facility] HPV9 2016-04-06 00:00:00 Completed [facility] HPV9 2016-04-06 00:00:00 Completed [facility] HPV9 2016-04-06 00:00:00 Completed [facility] HPV9 2016-04-06 00:00:00 Completed [facility] HPV9 2016-04-06 00:00:00 Completed [facility] HPV9 2016-04-06 00:00:00 Completed [facility] HPV9 2016-01-06 00:00:00 Completed [facility] HPV9 2016-01-06 00:00:00 Completed [facility] HPV9 2016-01-06 00:00:00 Completed [facility] HPV9 2016-01-06 00:00:00 Completed [facility] HPV9 2016-01-06 00:00:00 Completed [facility] HPV9 2016-01-06 00:00:00 Completed [facility] HPV9 2016-01-06 00:00:00 Completed [facility] HPV9 2016-01-06 00:00:00 Completed [facility] HPV9 2016-01-06 00:00:00 Completed [facility] HPV9 2016-01-06 00:00:00 Completed [facility] HPV9 2016-01-06 00:00:00 Completed [facility] HPV9 2016-01-06 00:00:00 Completed [facility] HPV9 2016-01-06 00:00:00 Completed [facility] HPV9 2016-01-06 00:00:00 Completed [facility] HPV9 2016-01-06 00:00:00 Completed [facility] HPV9 2016-01-06 00:00:00 Completed [facility] HPV9 2016-01-06 00:00:00 Completed [facility] HPV9 2016-01-06 00:00:00 Completed [facility] HPV9 2016-01-06 00:00:00 Completed [facility] HPV9 2016-01-06 00:00:00 Completed [facility] HPV9 2016-01-06 00:00:00 Completed [facility] HPV9 2016-01-06 00:00:00 Completed [facility] HPV9 2016-01-06 00:00:00 Completed [facility] HPV9 2016-01-06 00:00:00 Completed [facility] HPV9 2016-01-06 00:00:00 Completed [facility] HPV9 2016-01-06 00:00:00 Completed [facility] HPV9 2016-01-06 00:00:00 Completed [facility] HPV9 2016-01-06 00:00:00 Completed [facility] HPV9 2016-01-06 00:00:00 Completed [facility] HPV9 2016-01-06 00:00:00 Completed [facility] HPV9 2016-01-06 00:00:00 Completed [facility] HPV9 2016-01-06 00:00:00 Completed [facility] HPV9 2016-01-06 00:00:00 Completed [facility] HPV9 2016-01-06 00:00:00 Completed [facility] HPV9 2016-01-06 00:00:00 Completed [facility] HPV9 2016-01-06 00:00:00 Completed [facility] HPV9 2016-01-06 00:00:00 Completed [facility] HPV9 2016-01-06 00:00:00 Completed [facility] HPV9 2016-01-06 00:00:00 Completed [facility] HPV9 2016-01-06 00:00:00 Completed [facility] HPV9 2016-01-06 00:00:00 Completed [facility] HPV9 2016-01-06 00:00:00 Completed [facility] HPV9 2016-01-06 00:00:00 Completed [facility] HPV9 2016-01-06 00:00:00 Completed [facility] HPV9 2016-01-06 00:00:00 Completed [facility] HPV9 2016-01-06 00:00:00 Completed [facility] HPV9 2016-01-06 00:00:00 Completed [facility] HPV9 2016-01-06 00:00:00 Completed [facility] HPV9 2016-01-06 00:00:00 Completed [facility] HPV9 2016-01-06 00:00:00 Completed [facility] HPV9 2016-01-06 00:00:00 Completed [facility] HPV9 2016-01-06 00:00:00 Completed [facility] HPV9 2016-01-06 00:00:00 Completed [facility] HPV9 2016-01-06 00:00:00 Completed [facility] HPV9 2016-01-06 00:00:00 Completed [facility] HPV9 2016-01-06 00:00:00 Completed [facility] HPV9 2016-01-06 00:00:00 Completed [facility] HPV9 2016-01-06 00:00:00 Completed [facility] HPV9 2016-01-06 00:00:00 Completed [facility] HPV9 2016-01-06 00:00:00 Completed [facility] HPV9 2016-01-06 00:00:00 Completed [facility] HPV9 2016-01-06 00:00:00 Completed [facility] HPV9 2016-01-06 00:00:00 Completed [facility] HPV9 2016-01-06 00:00:00 Completed [facility] HPV9 2016-01-06 00:00:00 Completed [facility] HPV9 2016-01-06 00:00:00 Completed [facility] HPV9 2016-01-06 00:00:00 Completed [facility] HPV9 2016-01-06 00:00:00 Completed [facility] HPV9 2016-01-06 00:00:00 Completed [facility] HPV9 2016-01-06 00:00:00 Completed [facility] HPV9 2016-01-06 00:00:00 Completed [facility] HPV9 2016-01-06 00:00:00 Completed [facility] HPV9 2016-01-06 00:00:00 Completed [facility] HPV9 2016-01-06 00:00:00 Completed [facility] HPV9 2016-01-06 00:00:00 Completed [facility] HPV9 2016-01-06 00:00:00 Completed [facility] HPV9 2016-01-06 00:00:00 Completed [facility] HPV9 2016-01-06 00:00:00 Completed [facility] HPV9 2016-01-06 00:00:00 Completed [facility] HPV9 2016-01-06 00:00:00 Completed [facility] HPV9 2016-01-06 00:00:00 Completed [facility] HPV9 2016-01-06 00:00:00 Completed [facility] HPV9 2016-01-06 00:00:00 Completed [facility] HPV9 2016-01-06 00:00:00 Completed [facility] HPV9 2016-01-06 00:00:00 Completed [facility] HPV9 2015-10-03 00:00:00 Completed [facility] HPV9 2015-10-03 00:00:00 Completed [facility] HPV9 2015-10-03 00:00:00 Completed [facility] HPV9 2015-10-03 00:00:00 Completed [facility] HPV9 2015-10-03 00:00:00 Completed [facility] HPV9 2015-10-03 00:00:00 Completed [facility] HPV9 2015-10-03 00:00:00 Completed [facility] HPV9 2015-10-03 00:00:00 Completed [facility] HPV9 2015-10-03 00:00:00 Completed [facility] HPV9 2015-10-03 00:00:00 Completed [facility] HPV9 2015-10-03 00:00:00 Completed [facility] HPV9 2015-10-03 00:00:00 Completed [facility] HPV9 2015-10-03 00:00:00 Completed [facility] HPV9 2015-10-03 00:00:00 Completed [facility] HPV9 2015-10-03 00:00:00 Completed [facility] HPV9 2015-10-03 00:00:00 Completed [facility] HPV9 2015-10-03 00:00:00 Completed [facility] HPV9 2015-10-03 00:00:00 Completed [facility] HPV9 2015-10-03 00:00:00 Completed [facility] HPV9 2015-10-03 00:00:00 Completed [facility] HPV9 2015-10-03 00:00:00 Completed [facility] HPV9 2015-10-03 00:00:00 Completed [facility] HPV9 2015-10-03 00:00:00 Completed [facility] HPV9 2015-10-03 00:00:00 Completed [facility] HPV9 2015-10-03 00:00:00 Completed [facility] HPV9 2015-10-03 00:00:00 Completed [facility] HPV9 2015-10-03 00:00:00 Completed [facility] HPV9 2015-10-03 00:00:00 Completed [facility] HPV9 2015-10-03 00:00:00 Completed [facility] HPV9 2015-10-03 00:00:00 Completed [facility] HPV9 2015-10-03 00:00:00 Completed [facility] HPV9 2015-10-03 00:00:00 Completed [facility] HPV9 2015-10-03 00:00:00 Completed [facility] HPV9 2015-10-03 00:00:00 Completed [facility] HPV9 2015-10-03 00:00:00 Completed [facility] HPV9 2015-10-03 00:00:00 Completed [facility] HPV9 2015-10-03 00:00:00 Completed [facility] HPV9 2015-10-03 00:00:00 Completed [facility] HPV9 2015-10-03 00:00:00 Completed [facility] HPV9 2015-10-03 00:00:00 Completed [facility] HPV9 2015-10-03 00:00:00 Completed [facility] HPV9 2015-10-03 00:00:00 Completed [facility] HPV9 2015-10-03 00:00:00 Completed [facility] HPV9 2015-10-03 00:00:00 Completed [facility] HPV9 2015-10-03 00:00:00 Completed [facility] HPV9 2015-10-03 00:00:00 Completed [facility] HPV9 2015-10-03 00:00:00 Completed [facility] HPV9 2015-10-03 00:00:00 Completed [facility] HPV9 2015-10-03 00:00:00 Completed [facility] HPV9 2015-10-03 00:00:00 Completed [facility] HPV9 2015-10-03 00:00:00 Completed [facility] HPV9 2015-10-03 00:00:00 Completed [facility] HPV9 2015-10-03 00:00:00 Completed [facility] HPV9 2015-10-03 00:00:00 Completed [facility] HPV9 2015-10-03 00:00:00 Completed [facility] HPV9 2015-10-03 00:00:00 Completed [facility] HPV9 2015-10-03 00:00:00 Completed [facility] HPV9 2015-10-03 00:00:00 Completed [facility] HPV9 2015-10-03 00:00:00 Completed [facility] HPV9 2015-10-03 00:00:00 Completed [facility] HPV9 2015-10-03 00:00:00 Completed [facility] HPV9 2015-10-03 00:00:00 Completed [facility] HPV9 2015-10-03 00:00:00 Completed [facility] HPV9 2015-10-03 00:00:00 Completed [facility] HPV9 2015-10-03 00:00:00 Completed [facility] HPV9 2015-10-03 00:00:00 Completed [facility] HPV9 2015-10-03 00:00:00 Completed [facility] HPV9 2015-10-03 00:00:00 Completed [facility] HPV9 2015-10-03 00:00:00 Completed [facility] HPV9 2015-10-03 00:00:00 Completed [facility] HPV9 2015-10-03 00:00:00 Completed [facility] HPV9 2015-10-03 00:00:00 Completed [facility] HPV9 2015-10-03 00:00:00 Completed [facility] HPV9 2015-10-03 00:00:00 Completed [facility] HPV9 2015-10-03 00:00:00 Completed [facility] HPV9 2015-10-03 00:00:00 Completed [facility] HPV9 2015-10-03 00:00:00 Completed [facility] HPV9 2015-10-03 00:00:00 Completed [facility] HPV9 2015-10-03 00:00:00 Completed [facility] HPV9 2015-10-03 00:00:00 Completed [facility] HPV9 2015-10-03 00:00:00 Completed [facility] HPV9 2015-10-03 00:00:00 Completed [facility] HPV9 2015-10-03 00:00:00 Completed [facility] HPV9 2015-10-03 00:00:00 Completed [facility] HPV9 2015-10-03 00:00:00 Completed [facility] MMR 2014-06-28 00:00:00 Completed [facility] MMR 2014-06-28 00:00:00 Completed [facility] MMR 2014-06-28 00:00:00 Completed [facility] MMR 2014-06-28 00:00:00 Completed [facility] MMR 2014-06-28 00:00:00 Completed [facility] MMR 2014-06-28 00:00:00 Completed [facility] MMR 2014-06-28 00:00:00 Completed [facility] MMR 2014-06-28 00:00:00 Completed [facility] MMR 2014-06-28 00:00:00 Completed [facility] MMR 2014-06-28 00:00:00 Completed [facility] MMR 2014-06-28 00:00:00 Completed [facility] MMR 2014-06-28 00:00:00 Completed [facility] MMR 2014-06-28 00:00:00 Completed [facility] MMR 2014-06-28 00:00:00 Completed [facility] MMR 2014-06-28 00:00:00 Completed [facility] MMR 2014-06-28 00:00:00 Completed [facility] MMR 2014-06-28 00:00:00 Completed [facility] MMR 2014-06-28 00:00:00 Completed [facility] MMR 2014-06-28 00:00:00 Completed [facility] MMR 2014-06-28 00:00:00 Completed [facility] MMR 2014-06-28 00:00:00 Completed [facility] MMR 2014-06-28 00:00:00 Completed [facility] MMR 2014-06-28 00:00:00 Completed [facility] MMR 2014-06-28 00:00:00 Completed [facility] MMR 2014-06-28 00:00:00 Completed [facility] MMR 2014-06-28 00:00:00 Completed [facility] MMR 2014-06-28 00:00:00 Completed [facility] MMR 2014-06-28 00:00:00 Completed [facility] MMR 2014-06-28 00:00:00 Completed [facility] MMR 2014-06-28 00:00:00 Completed [facility] MMR 2014-06-28 00:00:00 Completed [facility] MMR 2014-06-28 00:00:00 Completed [facility] MMR 2014-06-28 00:00:00 Completed [facility] MMR 2014-06-28 00:00:00 Completed [facility] MMR 2014-06-28 00:00:00 Completed [facility] MMR 2014-06-28 00:00:00 Completed [facility] MMR 2014-06-28 00:00:00 Completed [facility] MMR 2014-06-28 00:00:00 Completed [facility] MMR 2014-06-28 00:00:00 Completed [facility] MMR 2014-06-28 00:00:00 Completed [facility] MMR 2014-06-28 00:00:00 Completed [facility] MMR 2014-06-28 00:00:00 Completed [facility] MMR 2014-06-28 00:00:00 Completed [facility] MMR 2014-06-28 00:00:00 Completed [facility] MMR 2014-06-28 00:00:00 Completed [facility] MMR 2014-06-28 00:00:00 Completed [facility] MMR 2014-06-28 00:00:00 Completed [facility] MMR 2014-06-28 00:00:00 Completed [facility] MMR 2014-06-28 00:00:00 Completed [facility] MMR 2014-06-28 00:00:00 Completed [facility] MMR 2014-06-28 00:00:00 Completed [facility] MMR 2014-06-28 00:00:00 Completed [facility] MMR 2014-06-28 00:00:00 Completed [facility] MMR 2014-06-28 00:00:00 Completed [facility] MMR 2014-06-28 00:00:00 Completed [facility] MMR 2014-06-28 00:00:00 Completed [facility] MMR 2014-06-28 00:00:00 Completed [facility] MMR 2014-06-28 00:00:00 Completed [facility] MMR 2014-06-28 00:00:00 Completed [facility] MMR 2014-06-28 00:00:00 Completed [facility] MMR 2014-06-28 00:00:00 Completed [facility] MMR 2014-06-28 00:00:00 Completed [facility] MMR 2014-06-28 00:00:00 Completed [facility] MMR 2014-06-28 00:00:00 Completed [facility] MMR 2014-06-28 00:00:00 Completed [facility] MMR 2014-06-28 00:00:00 Completed [facility] MMR 2014-06-28 00:00:00 Completed [facility] MMR 2014-06-28 00:00:00 Completed [facility] MMR 2014-06-28 00:00:00 Completed [facility] MMR 2014-06-28 00:00:00 Completed [facility] MMR 2014-06-28 00:00:00 Completed [facility] MMR 2014-06-28 00:00:00 Completed [facility] MMR 2014-06-28 00:00:00 Completed [facility] MMR 2014-06-28 00:00:00 Completed [facility] MMR 2014-06-28 00:00:00 Completed [facility] MMR 2014-06-28 00:00:00 Completed [facility] MMR 2014-06-28 00:00:00 Completed [facility] MMR 2014-06-28 00:00:00 Completed [facility] MMR 2014-06-28 00:00:00 Completed [facility] MMR 2014-06-28 00:00:00 Completed [facility] MMR 2014-06-28 00:00:00 Completed [facility] MMR 2014-06-28 00:00:00 Completed [facility] MMR 2014-06-28 00:00:00 Completed [facility] MMR 2014-06-28 00:00:00 Completed [facility] MMR 2014-06-28 00:00:00 Completed [facility] HPV 2014-04-10 00:00:00 Completed [facility] Meningococcal Polysaccharide (groups A, C, Y and W-135) conjugate vaccine (MCV4P) 2014-04-10 00:00:00 Completed [facility] HPV 2014-04-10 00:00:00 Completed [facility] Meningococcal Polysaccharide (groups A, C, Y and W-135) conjugate vaccine (MCV4P) 2014-04-10 00:00:00 Completed [facility] HPV 2014-04-10 00:00:00 Completed [facility] Meningococcal Polysaccharide (groups A, C, Y and W-135) conjugate vaccine (MCV4P) 2014-04-10 00:00:00 Completed [facility] HPV 2014-04-10 00:00:00 Completed [facility] Meningococcal Polysaccharide (groups A, C, Y and W-135) conjugate vaccine (MCV4P) 2014-04-10 00:00:00 Completed [facility] HPV 2014-04-10 00:00:00 Completed [facility] Meningococcal Polysaccharide (groups A, C, Y and W-135) conjugate vaccine (MCV4P) 2014-04-10 00:00:00 Completed [facility] HPV 2014-04-10 00:00:00 Completed [facility] Meningococcal Polysaccharide (groups A, C, Y and W-135) conjugate vaccine (MCV4P) 2014-04-10 00:00:00 Completed [facility] HPV 2014-04-10 00:00:00 Completed [facility] Meningococcal Polysaccharide (groups A, C, Y and W-135) conjugate vaccine (MCV4P) 2014-04-10 00:00:00 Completed [facility] HPV 2014-04-10 00:00:00 Completed [facility] Meningococcal Polysaccharide (groups A, C, Y and W-135) conjugate vaccine (MCV4P) 2014-04-10 00:00:00 Completed [facility] HPV 2014-04-10 00:00:00 Completed [facility] Meningococcal Polysaccharide (groups A, C, Y and W-135) conjugate vaccine (MCV4P) 2014-04-10 00:00:00 Completed [facility] HPV 2014-04-10 00:00:00 Completed [facility] Meningococcal Polysaccharide (groups A, C, Y and W-135) conjugate vaccine (MCV4P) 2014-04-10 00:00:00 Completed [facility] HPV 2014-04-10 00:00:00 Completed [facility] Meningococcal Polysaccharide (groups A, C, Y and W-135) conjugate vaccine (MCV4P) 2014-04-10 00:00:00 Completed [facility] HPV 2014-04-10 00:00:00 Completed [facility] Meningococcal Polysaccharide (groups A, C, Y and W-135) conjugate vaccine (MCV4P) 2014-04-10 00:00:00 Completed [facility] HPV 2014-04-10 00:00:00 Completed [facility] Meningococcal Polysaccharide (groups A, C, Y and W-135) conjugate vaccine (MCV4P) 2014-04-10 00:00:00 Completed [facility] HPV 2014-04-10 00:00:00 Completed [facility] Meningococcal Polysaccharide (groups A, C, Y and W-135) conjugate vaccine (MCV4P) 2014-04-10 00:00:00 Completed [facility] HPV 2014-04-10 00:00:00 Completed [facility] Meningococcal Polysaccharide (groups A, C, Y and W-135) conjugate vaccine (MCV4P) 2014-04-10 00:00:00 Completed [facility] HPV 2014-04-10 00:00:00 Completed [facility] Meningococcal Polysaccharide (groups A, C, Y and W-135) conjugate vaccine (MCV4P) 2014-04-10 00:00:00 Completed [facility] HPV 2014-04-10 00:00:00 Completed [facility] Meningococcal Polysaccharide (groups A, C, Y and W-135) conjugate vaccine (MCV4P) 2014-04-10 00:00:00 Completed [facility] HPV 2014-04-10 00:00:00 Completed [facility] Meningococcal Polysaccharide (groups A, C, Y and W-135) conjugate vaccine (MCV4P) 2014-04-10 00:00:00 Completed [facility] HPV 2014-04-10 00:00:00 Completed [facility] Meningococcal Polysaccharide (groups A, C, Y and W-135) conjugate vaccine (MCV4P) 2014-04-10 00:00:00 Completed [facility] HPV 2014-04-10 00:00:00 Completed [facility] Meningococcal Polysaccharide (groups A, C, Y and W-135) conjugate vaccine (MCV4P) 2014-04-10 00:00:00 Completed [facility] HPV 2014-04-10 00:00:00 Completed [facility] Meningococcal Polysaccharide (groups A, C, Y and W-135) conjugate vaccine (MCV4P) 2014-04-10 00:00:00 Completed [facility] HPV 2014-04-10 00:00:00 Completed [facility] Meningococcal Polysaccharide (groups A, C, Y and W-135) conjugate vaccine (MCV4P) 2014-04-10 00:00:00 Completed [facility] HPV 2014-04-10 00:00:00 Completed [facility] Meningococcal Polysaccharide (groups A, C, Y and W-135) conjugate vaccine (MCV4P) 2014-04-10 00:00:00 Completed [facility] HPV 2014-04-10 00:00:00 Completed [facility] Meningococcal Polysaccharide (groups A, C, Y and W-135) conjugate vaccine (MCV4P) 2014-04-10 00:00:00 Completed [facility] HPV 2014-04-10 00:00:00 Completed [facility] Meningococcal Polysaccharide (groups A, C, Y and W-135) conjugate vaccine (MCV4P) 2014-04-10 00:00:00 Completed [facility] HPV 2014-04-10 00:00:00 Completed [facility] Meningococcal Polysaccharide (groups A, C, Y and W-135) conjugate vaccine (MCV4P) 2014-04-10 00:00:00 Completed [facility] HPV 2014-04-10 00:00:00 Completed [facility] Meningococcal Polysaccharide (groups A, C, Y and W-135) conjugate vaccine (MCV4P) 2014-04-10 00:00:00 Completed [facility] HPV 2014-04-10 00:00:00 Completed [facility] Meningococcal Polysaccharide (groups A, C, Y and W-135) conjugate vaccine (MCV4P) 2014-04-10 00:00:00 Completed [facility] HPV 2014-04-10 00:00:00 Completed [facility] Meningococcal Polysaccharide (groups A, C, Y and W-135) conjugate vaccine (MCV4P) 2014-04-10 00:00:00 Completed [facility] HPV 2014-04-10 00:00:00 Completed [facility] Meningococcal Polysaccharide (groups A, C, Y and W-135) conjugate vaccine (MCV4P) 2014-04-10 00:00:00 Completed [facility] HPV 2014-04-10 00:00:00 Completed [facility] Meningococcal Polysaccharide (groups A, C, Y and W-135) conjugate vaccine (MCV4P) 2014-04-10 00:00:00 Completed [facility] HPV 2014-04-10 00:00:00 Completed [facility] Meningococcal Polysaccharide (groups A, C, Y and W-135) conjugate vaccine (MCV4P) 2014-04-10 00:00:00 Completed [facility] HPV 2014-04-10 00:00:00 Completed [facility] Meningococcal Polysaccharide (groups A, C, Y and W-135) conjugate vaccine (MCV4P) 2014-04-10 00:00:00 Completed [facility] HPV 2014-04-10 00:00:00 Completed [facility] Meningococcal Polysaccharide (groups A, C, Y and W-135) conjugate vaccine (MCV4P) 2014-04-10 00:00:00 Completed [facility] HPV 2014-04-10 00:00:00 Completed [facility] Meningococcal Polysaccharide (groups A, C, Y and W-135) conjugate vaccine (MCV4P) 2014-04-10 00:00:00 Completed [facility] HPV 2014-04-10 00:00:00 Completed [facility] Meningococcal Polysaccharide (groups A, C, Y and W-135) conjugate vaccine (MCV4P) 2014-04-10 00:00:00 Completed [facility] HPV 2014-04-10 00:00:00 Completed [facility] Meningococcal Polysaccharide (groups A, C, Y and W-135) conjugate vaccine (MCV4P) 2014-04-10 00:00:00 Completed [facility] HPV 2014-04-10 00:00:00 Completed [facility] Meningococcal Polysaccharide (groups A, C, Y and W-135) conjugate vaccine (MCV4P) 2014-04-10 00:00:00 Completed [facility] HPV 2014-04-10 00:00:00 Completed [facility] Meningococcal Polysaccharide (groups A, C, Y and W-135) conjugate vaccine (MCV4P) 2014-04-10 00:00:00 Completed [facility] TDAP 2014-03-18 00:00:00 Completed [facility] TDAP 2014-03-18 00:00:00 Completed [facility] TDAP 2014-03-18 00:00:00 Completed [facility] TDAP 2014-03-18 00:00:00 Completed [facility] TDAP 2014-03-18 00:00:00 Completed [facility] TDAP 2014-03-18 00:00:00 Completed [facility] TDAP 2014-03-18 00:00:00 Completed [facility] TDAP 2014-03-18 00:00:00 Completed [facility] TDAP 2014-03-18 00:00:00 Completed [facility] TDAP 2014-03-18 00:00:00 Completed [facility] TDAP 2014-03-18 00:00:00 Completed [facility] TDAP 2014-03-18 00:00:00 Completed [facility] TDAP 2014-03-18 00:00:00 Completed [facility] TDAP 2014-03-18 00:00:00 Completed [facility] TDAP 2014-03-18 00:00:00 Completed [facility] TDAP 2014-03-18 00:00:00 Completed [facility] TDAP 2014-03-18 00:00:00 Completed [facility] TDAP 2014-03-18 00:00:00 Completed [facility] TDAP 2014-03-18 00:00:00 Completed [facility] TDAP 2014-03-18 00:00:00 Completed [facility] TDAP 2014-03-18 00:00:00 Completed [facility] TDAP 2014-03-18 00:00:00 Completed [facility] TDAP 2014-03-18 00:00:00 Completed [facility] TDAP 2014-03-18 00:00:00 Completed [facility] TDAP 2014-03-18 00:00:00 Completed [facility] TDAP 2014-03-18 00:00:00 Completed [facility] TDAP 2014-03-18 00:00:00 Completed [facility] TDAP 2014-03-18 00:00:00 Completed [facility] TDAP 2014-03-18 00:00:00 Completed [facility] TDAP 2014-03-18 00:00:00 Completed [facility] TDAP 2014-03-18 00:00:00 Completed [facility] TDAP 2014-03-18 00:00:00 Completed [facility] TDAP 2014-03-18 00:00:00 Completed [facility] TDAP 2014-03-18 00:00:00 Completed [facility] TDAP 2014-03-18 00:00:00 Completed [facility] TDAP 2014-03-18 00:00:00 Completed [facility] TDAP 2014-03-18 00:00:00 Completed [facility] TDAP 2014-03-18 00:00:00 Completed [facility] TDAP 2014-03-18 00:00:00 Completed [facility] TDAP 2014-03-18 00:00:00 Completed [facility] TDAP 2014-03-18 00:00:00 Completed [facility] TDAP 2014-03-18 00:00:00 Completed [facility] TDAP 2014-03-18 00:00:00 Completed [facility] TDAP 2014-03-18 00:00:00 Completed [facility] TDAP 2014-03-18 00:00:00 Completed [facility] TDAP 2014-03-18 00:00:00 Completed [facility] TDAP 2014-03-18 00:00:00 Completed [facility] TDAP 2014-03-18 00:00:00 Completed [facility] TDAP 2014-03-18 00:00:00 Completed [facility] TDAP 2014-03-18 00:00:00 Completed [facility] TDAP 2014-03-18 00:00:00 Completed [facility] TDAP 2014-03-18 00:00:00 Completed [facility] TDAP 2014-03-18 00:00:00 Completed [facility] TDAP 2014-03-18 00:00:00 Completed [facility] TDAP 2014-03-18 00:00:00 Completed [facility] TDAP 2014-03-18 00:00:00 Completed [facility] TDAP 2014-03-18 00:00:00 Completed [facility] TDAP 2014-03-18 00:00:00 Completed [facility] TDAP 2014-03-18 00:00:00 Completed [facility] TDAP 2014-03-18 00:00:00 Completed [facility] TDAP 2014-03-18 00:00:00 Completed [facility] TDAP 2014-03-18 00:00:00 Completed [facility] TDAP 2014-03-18 00:00:00 Completed [facility] TDAP 2014-03-18 00:00:00 Completed [facility] TDAP 2014-03-18 00:00:00 Completed [facility] TDAP 2014-03-18 00:00:00 Completed [facility] TDAP 2014-03-18 00:00:00 Completed [facility] TDAP 2014-03-18 00:00:00 Completed [facility] TDAP 2014-03-18 00:00:00 Completed [facility] TDAP 2014-03-18 00:00:00 Completed [facility] TDAP 2014-03-18 00:00:00 Completed [facility] TDAP 2014-03-18 00:00:00 Completed [facility] TDAP 2014-03-18 00:00:00 Completed [facility] TDAP 2014-03-18 00:00:00 Completed [facility] TDAP 2014-03-18 00:00:00 Completed [facility] TDAP 2014-03-18 00:00:00 Completed [facility] TDAP 2014-03-18 00:00:00 Completed [facility] TDAP 2014-03-18 00:00:00 Completed [facility] TDAP 2014-03-18 00:00:00 Completed [facility] TDAP 2014-03-18 00:00:00 Completed [facility] TDAP 2014-03-18 00:00:00 Completed [facility] TDAP 2014-03-18 00:00:00 Completed [facility] TDAP 2014-03-18 00:00:00 Completed [facility] TDAP 2014-03-18 00:00:00 Completed [facility] TDAP 2014-03-18 00:00:00 Completed [facility] Influenza Virus Vaccine - Whole 2012-12-21 00:00:00 Completed [facility] HPV 2012-12-21 00:00:00 Completed [facility] Influenza Virus Vaccine - Whole 2012-12-21 00:00:00 Completed [facility] HPV 2012-12-21 00:00:00 Completed [facility] Influenza Virus Vaccine - Whole 2012-12-21 00:00:00 Completed [facility] HPV 2012-12-21 00:00:00 Completed [facility] Influenza Virus Vaccine - Whole 2012-12-21 00:00:00 Completed [facility] HPV 2012-12-21 00:00:00 Completed [facility] Influenza Virus Vaccine - Whole 2012-12-21 00:00:00 Completed [facility] HPV 2012-12-21 00:00:00 Completed [facility] Influenza Virus Vaccine - Whole 2012-12-21 00:00:00 Completed [facility] HPV 2012-12-21 00:00:00 Completed [facility] Influenza Virus Vaccine - Whole 2012-12-21 00:00:00 Completed [facility] HPV 2012-12-21 00:00:00 Completed [facility] Influenza Virus Vaccine - Whole 2012-12-21 00:00:00 Completed [facility] HPV 2012-12-21 00:00:00 Completed [facility] Influenza Virus Vaccine - Whole 2012-12-21 00:00:00 Completed [facility] HPV 2012-12-21 00:00:00 Completed [facility] Influenza Virus Vaccine - Whole 2012-12-21 00:00:00 Completed [facility] HPV 2012-12-21 00:00:00 Completed [facility] Influenza Virus Vaccine - Whole 2012-12-21 00:00:00 Completed [facility] HPV 2012-12-21 00:00:00 Completed [facility] Influenza Virus Vaccine - Whole 2012-12-21 00:00:00 Completed [facility] HPV 2012-12-21 00:00:00 Completed [facility] Influenza Virus Vaccine - Whole 2012-12-21 00:00:00 Completed [facility] HPV 2012-12-21 00:00:00 Completed [facility] Influenza Virus Vaccine - Whole 2012-12-21 00:00:00 Completed [facility] HPV 2012-12-21 00:00:00 Completed [facility] Influenza Virus Vaccine - Whole 2012-12-21 00:00:00 Completed [facility] HPV 2012-12-21 00:00:00 Completed [facility] Influenza Virus Vaccine - Whole 2012-12-21 00:00:00 Completed [facility] HPV 2012-12-21 00:00:00 Completed [facility] Influenza Virus Vaccine - Whole 2012-12-21 00:00:00 Completed [facility] HPV 2012-12-21 00:00:00 Completed [facility] Influenza Virus Vaccine - Whole 2012-12-21 00:00:00 Completed [facility] HPV 2012-12-21 00:00:00 Completed [facility] Influenza Virus Vaccine - Whole 2012-12-21 00:00:00 Completed [facility] HPV 2012-12-21 00:00:00 Completed [facility] Influenza Virus Vaccine - Whole 2012-12-21 00:00:00 Completed [facility] HPV 2012-12-21 00:00:00 Completed [facility] Influenza Virus Vaccine - Whole 2012-12-21 00:00:00 Completed [facility] HPV 2012-12-21 00:00:00 Completed [facility] Influenza Virus Vaccine - Whole 2012-12-21 00:00:00 Completed [facility] HPV 2012-12-21 00:00:00 Completed [facility] Influenza Virus Vaccine - Whole 2012-12-21 00:00:00 Completed [facility] HPV 2012-12-21 00:00:00 Completed [facility] Influenza Virus Vaccine - Whole 2012-12-21 00:00:00 Completed [facility] HPV 2012-12-21 00:00:00 Completed [facility] Influenza Virus Vaccine - Whole 2012-12-21 00:00:00 Completed [facility] HPV 2012-12-21 00:00:00 Completed [facility] Influenza Virus Vaccine - Whole 2012-12-21 00:00:00 Completed [facility] HPV 2012-12-21 00:00:00 Completed [facility] Influenza Virus Vaccine - Whole 2012-12-21 00:00:00 Completed [facility] HPV 2012-12-21 00:00:00 Completed [facility] Influenza Virus Vaccine - Whole 2012-12-21 00:00:00 Completed [facility] HPV 2012-12-21 00:00:00 Completed [facility] Influenza Virus Vaccine - Whole 2012-12-21 00:00:00 Completed [facility] HPV 2012-12-21 00:00:00 Completed [facility] Influenza Virus Vaccine - Whole 2012-12-21 00:00:00 Completed [facility] HPV 2012-12-21 00:00:00 Completed [facility] Influenza Virus Vaccine - Whole 2012-12-21 00:00:00 Completed [facility] HPV 2012-12-21 00:00:00 Completed [facility] Influenza Virus Vaccine - Whole 2012-12-21 00:00:00 Completed [facility] HPV 2012-12-21 00:00:00 Completed [facility] Influenza Virus Vaccine - Whole 2012-12-21 00:00:00 Completed [facility] HPV 2012-12-21 00:00:00 Completed [facility] Influenza Virus Vaccine - Whole 2012-12-21 00:00:00 Completed [facility] HPV 2012-12-21 00:00:00 Completed [facility] Influenza Virus Vaccine - Whole 2012-12-21 00:00:00 Completed [facility] HPV 2012-12-21 00:00:00 Completed [facility] Influenza Virus Vaccine - Whole 2012-12-21 00:00:00 Completed [facility] HPV 2012-12-21 00:00:00 Completed [facility] Influenza Virus Vaccine - Whole 2012-12-21 00:00:00 Completed [facility] HPV 2012-12-21 00:00:00 Completed [facility] Influenza Virus Vaccine - Whole 2012-12-21 00:00:00 Completed [facility] HPV 2012-12-21 00:00:00 Completed [facility] Influenza Virus Vaccine - Whole 2012-12-21 00:00:00 Completed [facility] HPV 2012-12-21 00:00:00 Completed [facility] TDAP 2009-07-22 00:00:00 Completed [facility] HEPATITIS A 2009-07-22 00:00:00 Completed [facility] Meningococcal Polysaccharide (groups A, C, Y and W-135) conjugate vaccine (MCV4P) 2009-07-22 00:00:00 Completed [facility] TDAP 2009-07-22 00:00:00 Completed [facility] HEPATITIS A 2009-07-22 00:00:00 Completed [facility] Meningococcal Polysaccharide (groups A, C, Y and W-135) conjugate vaccine (MCV4P) 2009-07-22 00:00:00 Completed [facility] TDAP 2009-07-22 00:00:00 Completed [facility] HEPATITIS A 2009-07-22 00:00:00 Completed [facility] Meningococcal Polysaccharide (groups A, C, Y and W-135) conjugate vaccine (MCV4P) 2009-07-22 00:00:00 Completed [facility] TDAP 2009-07-22 00:00:00 Completed [facility] HEPATITIS A 2009-07-22 00:00:00 Completed [facility] Meningococcal Polysaccharide (groups A, C, Y and W-135) conjugate vaccine (MCV4P) 2009-07-22 00:00:00 Completed [facility] TDAP 2009-07-22 00:00:00 Completed [facility] HEPATITIS A 2009-07-22 00:00:00 Completed [facility] Meningococcal Polysaccharide (groups A, C, Y and W-135) conjugate vaccine (MCV4P) 2009-07-22 00:00:00 Completed [facility] TDAP 2009-07-22 00:00:00 Completed [facility] HEPATITIS A 2009-07-22 00:00:00 Completed [facility] Meningococcal Polysaccharide (groups A, C, Y and W-135) conjugate vaccine (MCV4P) 2009-07-22 00:00:00 Completed [facility] TDAP 2009-07-22 00:00:00 Completed [facility] HEPATITIS A 2009-07-22 00:00:00 Completed [facility] Meningococcal Polysaccharide (groups A, C, Y and W-135) conjugate vaccine (MCV4P) 2009-07-22 00:00:00 Completed [facility] TDAP 2009-07-22 00:00:00 Completed [facility] HEPATITIS A 2009-07-22 00:00:00 Completed [facility] Meningococcal Polysaccharide (groups A, C, Y and W-135) conjugate vaccine (MCV4P) 2009-07-22 00:00:00 Completed [facility] TDAP 2009-07-22 00:00:00 Completed [facility] HEPATITIS A 2009-07-22 00:00:00 Completed [facility] Meningococcal Polysaccharide (groups A, C, Y and W-135) conjugate vaccine (MCV4P) 2009-07-22 00:00:00 Completed [facility] TDAP 2009-07-22 00:00:00 Completed [facility] HEPATITIS A 2009-07-22 00:00:00 Completed [facility] Meningococcal Polysaccharide (groups A, C, Y and W-135) conjugate vaccine (MCV4P) 2009-07-22 00:00:00 Completed [facility] TDAP 2009-07-22 00:00:00 Completed [facility] HEPATITIS A 2009-07-22 00:00:00 Completed [facility] Meningococcal Polysaccharide (groups A, C, Y and W-135) conjugate vaccine (MCV4P) 2009-07-22 00:00:00 Completed [facility] TDAP 2009-07-22 00:00:00 Completed [facility] HEPATITIS A 2009-07-22 00:00:00 Completed [facility] Meningococcal Polysaccharide (groups A, C, Y and W-135) conjugate vaccine (MCV4P) 2009-07-22 00:00:00 Completed [facility] TDAP 2009-07-22 00:00:00 Completed [facility] HEPATITIS A 2009-07-22 00:00:00 Completed [facility] Meningococcal Polysaccharide (groups A, C, Y and W-135) conjugate vaccine (MCV4P) 2009-07-22 00:00:00 Completed [facility] TDAP 2009-07-22 00:00:00 Completed [facility] HEPATITIS A 2009-07-22 00:00:00 Completed [facility] Meningococcal Polysaccharide (groups A, C, Y and W-135) conjugate vaccine (MCV4P) 2009-07-22 00:00:00 Completed [facility] TDAP 2009-07-22 00:00:00 Completed [facility] HEPATITIS A 2009-07-22 00:00:00 Completed [facility] Meningococcal Polysaccharide (groups A, C, Y and W-135) conjugate vaccine (MCV4P) 2009-07-22 00:00:00 Completed [facility] TDAP 2009-07-22 00:00:00 Completed [facility] HEPATITIS A 2009-07-22 00:00:00 Completed [facility] Meningococcal Polysaccharide (groups A, C, Y and W-135) conjugate vaccine (MCV4P) 2009-07-22 00:00:00 Completed [facility] TDAP 2009-07-22 00:00:00 Completed [facility] HEPATITIS A 2009-07-22 00:00:00 Completed [facility] Meningococcal Polysaccharide (groups A, C, Y and W-135) conjugate vaccine (MCV4P) 2009-07-22 00:00:00 Completed [facility] TDAP 2009-07-22 00:00:00 Completed [facility] HEPATITIS A 2009-07-22 00:00:00 Completed [facility] Meningococcal Polysaccharide (groups A, C, Y and W-135) conjugate vaccine (MCV4P) 2009-07-22 00:00:00 Completed [facility] TDAP 2009-07-22 00:00:00 Completed [facility] HEPATITIS A 2009-07-22 00:00:00 Completed [facility] Meningococcal Polysaccharide (groups A, C, Y and W-135) conjugate vaccine (MCV4P) 2009-07-22 00:00:00 Completed [facility] TDAP 2009-07-22 00:00:00 Completed [facility] HEPATITIS A 2009-07-22 00:00:00 Completed [facility] Meningococcal Polysaccharide (groups A, C, Y and W-135) conjugate vaccine (MCV4P) 2009-07-22 00:00:00 Completed [facility] TDAP 2009-07-22 00:00:00 Completed [facility] HEPATITIS A 2009-07-22 00:00:00 Completed [facility] Meningococcal Polysaccharide (groups A, C, Y and W-135) conjugate vaccine (MCV4P) 2009-07-22 00:00:00 Completed [facility] TDAP 2009-07-22 00:00:00 Completed [facility] HEPATITIS A 2009-07-22 00:00:00 Completed [facility] Meningococcal Polysaccharide (groups A, C, Y and W-135) conjugate vaccine (MCV4P) 2009-07-22 00:00:00 Completed [facility] TDAP 2009-07-22 00:00:00 Completed [facility] HEPATITIS A 2009-07-22 00:00:00 Completed [facility] Meningococcal Polysaccharide (groups A, C, Y and W-135) conjugate vaccine (MCV4P) 2009-07-22 00:00:00 Completed [facility] TDAP 2009-07-22 00:00:00 Completed [facility] HEPATITIS A 2009-07-22 00:00:00 Completed [facility] Meningococcal Polysaccharide (groups A, C, Y and W-135) conjugate vaccine (MCV4P) 2009-07-22 00:00:00 Completed [facility] TDAP 2009-07-22 00:00:00 Completed [facility] HEPATITIS A 2009-07-22 00:00:00 Completed [facility] Meningococcal Polysaccharide (groups A, C, Y and W-135) conjugate vaccine (MCV4P) 2009-07-22 00:00:00 Completed [facility] TDAP 2009-07-22 00:00:00 Completed [facility] HEPATITIS A 2009-07-22 00:00:00 Completed [facility] Meningococcal Polysaccharide (groups A, C, Y and W-135) conjugate vaccine (MCV4P) 2009-07-22 00:00:00 Completed [facility] TDAP 2009-07-22 00:00:00 Completed [facility] HEPATITIS A 2009-07-22 00:00:00 Completed [facility] Meningococcal Polysaccharide (groups A, C, Y and W-135) conjugate vaccine (MCV4P) 2009-07-22 00:00:00 Completed [facility] TDAP 2009-07-22 00:00:00 Completed [facility] HEPATITIS A 2009-07-22 00:00:00 Completed [facility] Meningococcal Polysaccharide (groups A, C, Y and W-135) conjugate vaccine (MCV4P) 2009-07-22 00:00:00 Completed [facility] TDAP 2009-07-22 00:00:00 Completed [facility] HEPATITIS A 2009-07-22 00:00:00 Completed [facility] Meningococcal Polysaccharide (groups A, C, Y and W-135) conjugate vaccine (MCV4P) 2009-07-22 00:00:00 Completed [facility] TDAP 2009-07-22 00:00:00 Completed [facility] HEPATITIS A 2009-07-22 00:00:00 Completed [facility] Meningococcal Polysaccharide (groups A, C, Y and W-135) conjugate vaccine (MCV4P) 2009-07-22 00:00:00 Completed [facility] TDAP 2009-07-22 00:00:00 Completed [facility] HEPATITIS A 2009-07-22 00:00:00 Completed [facility] Meningococcal Polysaccharide (groups A, C, Y and W-135) conjugate vaccine (MCV4P) 2009-07-22 00:00:00 Completed [facility] TDAP 2009-07-22 00:00:00 Completed [facility] HEPATITIS A 2009-07-22 00:00:00 Completed [facility] Meningococcal Polysaccharide (groups A, C, Y and W-135) conjugate vaccine (MCV4P) 2009-07-22 00:00:00 Completed [facility] TDAP 2009-07-22 00:00:00 Completed [facility] HEPATITIS A 2009-07-22 00:00:00 Completed [facility] Meningococcal Polysaccharide (groups A, C, Y and W-135) conjugate vaccine (MCV4P) 2009-07-22 00:00:00 Completed [facility] TDAP 2009-07-22 00:00:00 Completed [facility] HEPATITIS A 2009-07-22 00:00:00 Completed [facility] Meningococcal Polysaccharide (groups A, C, Y and W-135) conjugate vaccine (MCV4P) 2009-07-22 00:00:00 Completed [facility] TDAP 2009-07-22 00:00:00 Completed [facility] HEPATITIS A 2009-07-22 00:00:00 Completed [facility] Meningococcal Polysaccharide (groups A, C, Y and W-135) conjugate vaccine (MCV4P) 2009-07-22 00:00:00 Completed [facility] TDAP 2009-07-22 00:00:00 Completed [facility] HEPATITIS A 2009-07-22 00:00:00 Completed [facility] Meningococcal Polysaccharide (groups A, C, Y and W-135) conjugate vaccine (MCV4P) 2009-07-22 00:00:00 Completed [facility] TDAP 2009-07-22 00:00:00 Completed [facility] HEPATITIS A 2009-07-22 00:00:00 Completed [facility] Meningococcal Polysaccharide (groups A, C, Y and W-135) conjugate vaccine (MCV4P) 2009-07-22 00:00:00 Completed [facility] TDAP 2009-07-22 00:00:00 Completed [facility] HEPATITIS A 2009-07-22 00:00:00 Completed [facility] Meningococcal Polysaccharide (groups A, C, Y and W-135) conjugate vaccine (MCV4P) 2009-07-22 00:00:00 Completed [facility] TDAP 2009-07-22 00:00:00 Completed [facility] HEPATITIS A 2009-07-22 00:00:00 Completed [facility] Meningococcal Polysaccharide (groups A, C, Y and W-135) conjugate vaccine (MCV4P) 2009-07-22 00:00:00 Completed [facility] HEPATITIS A 2008-07-11 00:00:00 Completed [facility] HEPATITIS A 2008-07-11 00:00:00 Completed [facility] HEPATITIS A 2008-07-11 00:00:00 Completed [facility] HEPATITIS A 2008-07-11 00:00:00 Completed [facility] HEPATITIS A 2008-07-11 00:00:00 Completed [facility] HEPATITIS A 2008-07-11 00:00:00 Completed [facility] HEPATITIS A 2008-07-11 00:00:00 Completed [facility] HEPATITIS A 2008-07-11 00:00:00 Completed [facility] HEPATITIS A 2008-07-11 00:00:00 Completed [facility] HEPATITIS A 2008-07-11 00:00:00 Completed [facility] HEPATITIS A 2008-07-11 00:00:00 Completed [facility] HEPATITIS A 2008-07-11 00:00:00 Completed [facility] HEPATITIS A 2008-07-11 00:00:00 Completed [facility] HEPATITIS A 2008-07-11 00:00:00 Completed [facility] HEPATITIS A 2008-07-11 00:00:00 Completed [facility] HEPATITIS A 2008-07-11 00:00:00 Completed [facility] HEPATITIS A 2008-07-11 00:00:00 Completed [facility] HEPATITIS A 2008-07-11 00:00:00 Completed [facility] HEPATITIS A 2008-07-11 00:00:00 Completed [facility] HEPATITIS A 2008-07-11 00:00:00 Completed [facility] HEPATITIS A 2008-07-11 00:00:00 Completed [facility] HEPATITIS A 2008-07-11 00:00:00 Completed [facility] HEPATITIS A 2008-07-11 00:00:00 Completed [facility] HEPATITIS A 2008-07-11 00:00:00 Completed [facility] HEPATITIS A 2008-07-11 00:00:00 Completed [facility] HEPATITIS A 2008-07-11 00:00:00 Completed [facility] HEPATITIS A 2008-07-11 00:00:00 Completed [facility] HEPATITIS A 2008-07-11 00:00:00 Completed [facility] HEPATITIS A 2008-07-11 00:00:00 Completed [facility] HEPATITIS A 2008-07-11 00:00:00 Completed [facility] HEPATITIS A 2008-07-11 00:00:00 Completed [facility] HEPATITIS A 2008-07-11 00:00:00 Completed [facility] HEPATITIS A 2008-07-11 00:00:00 Completed [facility] HEPATITIS A 2008-07-11 00:00:00 Completed [facility] HEPATITIS A 2008-07-11 00:00:00 Completed [facility] HEPATITIS A 2008-07-11 00:00:00 Completed [facility] HEPATITIS A 2008-07-11 00:00:00 Completed [facility] HEPATITIS A 2008-07-11 00:00:00 Completed [facility] HEPATITIS A 2008-07-11 00:00:00 Completed [facility] Varicella (varivax)(chicken pox) 2006-04-29 00:00:00 Completed [facility] Varicella (varivax)(chicken pox) 2006-04-29 00:00:00 Completed [facility] Varicella (varivax)(chicken pox) 2006-04-29 00:00:00 Completed [facility] Varicella (varivax)(chicken pox) 2006-04-29 00:00:00 Completed [facility] Varicella (varivax)(chicken pox) 2006-04-29 00:00:00 Completed [facility] Varicella (varivax)(chicken pox) 2006-04-29 00:00:00 Completed [facility] Varicella (varivax)(chicken pox) 2006-04-29 00:00:00 Completed [facility] Varicella (varivax)(chicken pox) 2006-04-29 00:00:00 Completed [facility] Varicella (varivax)(chicken pox) 2006-04-29 00:00:00 Completed [facility] Varicella (varivax)(chicken pox) 2006-04-29 00:00:00 Completed [facility] Varicella (varivax)(chicken pox) 2006-04-29 00:00:00 Completed [facility] Varicella (varivax)(chicken pox) 2006-04-29 00:00:00 Completed [facility] Varicella (varivax)(chicken pox) 2006-04-29 00:00:00 Completed [facility] Varicella (varivax)(chicken pox) 2006-04-29 00:00:00 Completed [facility] Varicella (varivax)(chicken pox) 2006-04-29 00:00:00 Completed [facility] Varicella (varivax)(chicken pox) 2006-04-29 00:00:00 Completed [facility] Varicella (varivax)(chicken pox) 2006-04-29 00:00:00 Completed [facility] Varicella (varivax)(chicken pox) 2006-04-29 00:00:00 Completed [facility] Varicella (varivax)(chicken pox) 2006-04-29 00:00:00 Completed [facility] Varicella (varivax)(chicken pox) 2006-04-29 00:00:00 Completed [facility] Varicella (varivax)(chicken pox) 2006-04-29 00:00:00 Completed [facility] Varicella (varivax)(chicken pox) 2006-04-29 00:00:00 Completed [facility] Varicella (varivax)(chicken pox) 2006-04-29 00:00:00 Completed [facility] Varicella (varivax)(chicken pox) 2006-04-29 00:00:00 Completed [facility] Varicella (varivax)(chicken pox) 2006-04-29 00:00:00 Completed [facility] Varicella (varivax)(chicken pox) 2006-04-29 00:00:00 Completed [facility] Varicella (varivax)(chicken pox) 2006-04-29 00:00:00 Completed [facility] Varicella (varivax)(chicken pox) 2006-04-29 00:00:00 Completed [facility] Varicella (varivax)(chicken pox) 2006-04-29 00:00:00 Completed [facility] Varicella (varivax)(chicken pox) 2006-04-29 00:00:00 Completed [facility] Varicella (varivax)(chicken pox) 2006-04-29 00:00:00 Completed [facility] Varicella (varivax)(chicken pox) 2006-04-29 00:00:00 Completed [facility] Varicella (varivax)(chicken pox) 2006-04-29 00:00:00 Completed [facility] Varicella (varivax)(chicken pox) 2006-04-29 00:00:00 Completed [facility] Varicella (varivax)(chicken pox) 2006-04-29 00:00:00 Completed [facility] Varicella (varivax)(chicken pox) 2006-04-29 00:00:00 Completed [facility] Varicella (varivax)(chicken pox) 2006-04-29 00:00:00 Completed [facility] Varicella (varivax)(chicken pox) 2006-04-29 00:00:00 Completed [facility] Varicella (varivax)(chicken pox) 2006-04-29 00:00:00 Completed [facility] DTaP, Unspecified Formulation 2002-06-30 00:00:00 Completed [facility] MMR 2002-06-30 00:00:00 Completed [facility] IPV 2002-06-30 00:00:00 Completed [facility] DTaP, Unspecified Formulation 2002-06-30 00:00:00 Completed [facility] MMR 2002-06-30 00:00:00 Completed [facility] IPV 2002-06-30 00:00:00 Completed [facility] DTaP, Unspecified Formulation 2002-06-30 00:00:00 Completed [facility] MMR 2002-06-30 00:00:00 Completed [facility] IPV 2002-06-30 00:00:00 Completed [facility] DTaP, Unspecified Formulation 2002-06-30 00:00:00 Completed [facility] MMR 2002-06-30 00:00:00 Completed [facility] IPV 2002-06-30 00:00:00 Completed [facility] DTaP, Unspecified Formulation 2002-06-30 00:00:00 Completed [facility] MMR 2002-06-30 00:00:00 Completed [facility] IPV 2002-06-30 00:00:00 Completed [facility] DTaP, Unspecified Formulation 2002-06-30 00:00:00 Completed [facility] MMR 2002-06-30 00:00:00 Completed [facility] IPV 2002-06-30 00:00:00 Completed [facility] DTaP, Unspecified Formulation 2002-06-30 00:00:00 Completed [facility] MMR 2002-06-30 00:00:00 Completed [facility] IPV 2002-06-30 00:00:00 Completed [facility] DTaP, Unspecified Formulation 2002-06-30 00:00:00 Completed [facility] MMR 2002-06-30 00:00:00 Completed [facility] IPV 2002-06-30 00:00:00 Completed [facility] DTaP, Unspecified Formulation 2002-06-30 00:00:00 Completed [facility] MMR 2002-06-30 00:00:00 Completed [facility] IPV 2002-06-30 00:00:00 Completed [facility] DTaP, Unspecified Formulation 2002-06-30 00:00:00 Completed [facility] MMR 2002-06-30 00:00:00 Completed [facility] IPV 2002-06-30 00:00:00 Completed [facility] DTaP, Unspecified Formulation 2002-06-30 00:00:00 Completed [facility] MMR 2002-06-30 00:00:00 Completed [facility] IPV 2002-06-30 00:00:00 Completed [facility] DTaP, Unspecified Formulation 2002-06-30 00:00:00 Completed [facility] MMR 2002-06-30 00:00:00 Completed [facility] IPV 2002-06-30 00:00:00 Completed [facility] DTaP, Unspecified Formulation 2002-06-30 00:00:00 Completed [facility] MMR 2002-06-30 00:00:00 Completed [facility] IPV 2002-06-30 00:00:00 Completed [facility] DTaP, Unspecified Formulation 2002-06-30 00:00:00 Completed [facility] MMR 2002-06-30 00:00:00 Completed [facility] IPV 2002-06-30 00:00:00 Completed [facility] DTaP, Unspecified Formulation 2002-06-30 00:00:00 Completed [facility] MMR 2002-06-30 00:00:00 Completed [facility] IPV 2002-06-30 00:00:00 Completed [facility] DTaP, Unspecified Formulation 2002-06-30 00:00:00 Completed [facility] MMR 2002-06-30 00:00:00 Completed [facility] IPV 2002-06-30 00:00:00 Completed [facility] DTaP, Unspecified Formulation 2002-06-30 00:00:00 Completed [facility] MMR 2002-06-30 00:00:00 Completed [facility] IPV 2002-06-30 00:00:00 Completed [facility] DTaP, Unspecified Formulation 2002-06-30 00:00:00 Completed [facility] MMR 2002-06-30 00:00:00 Completed [facility] IPV 2002-06-30 00:00:00 Completed [facility] DTaP, Unspecified Formulation 2002-06-30 00:00:00 Completed [facility] MMR 2002-06-30 00:00:00 Completed [facility] IPV 2002-06-30 00:00:00 Completed [facility] DTaP, Unspecified Formulation 2002-06-30 00:00:00 Completed [facility] MMR 2002-06-30 00:00:00 Completed [facility] IPV 2002-06-30 00:00:00 Completed [facility] DTaP, Unspecified Formulation 2002-06-30 00:00:00 Completed [facility] MMR 2002-06-30 00:00:00 Completed [facility] IPV 2002-06-30 00:00:00 Completed [facility] DTaP, Unspecified Formulation 2002-06-30 00:00:00 Completed [facility] MMR 2002-06-30 00:00:00 Completed [facility] IPV 2002-06-30 00:00:00 Completed [facility] DTaP, Unspecified Formulation 2002-06-30 00:00:00 Completed [facility] MMR 2002-06-30 00:00:00 Completed [facility] IPV 2002-06-30 00:00:00 Completed [facility] DTaP, Unspecified Formulation 2002-06-30 00:00:00 Completed [facility] MMR 2002-06-30 00:00:00 Completed [facility] IPV 2002-06-30 00:00:00 Completed [facility] DTaP, Unspecified Formulation 2002-06-30 00:00:00 Completed [facility] MMR 2002-06-30 00:00:00 Completed [facility] IPV 2002-06-30 00:00:00 Completed [facility] DTaP, Unspecified Formulation 2002-06-30 00:00:00 Completed [facility] MMR 2002-06-30 00:00:00 Completed [facility] IPV 2002-06-30 00:00:00 Completed [facility] DTaP, Unspecified Formulation 2002-06-30 00:00:00 Completed [facility] MMR 2002-06-30 00:00:00 Completed [facility] IPV 2002-06-30 00:00:00 Completed [facility] DTaP, Unspecified Formulation 2002-06-30 00:00:00 Completed [facility] MMR 2002-06-30 00:00:00 Completed [facility] IPV 2002-06-30 00:00:00 Completed [facility] DTaP, Unspecified Formulation 2002-06-30 00:00:00 Completed [facility] MMR 2002-06-30 00:00:00 Completed [facility] IPV 2002-06-30 00:00:00 Completed [facility] DTaP, Unspecified Formulation 2002-06-30 00:00:00 Completed [facility] MMR 2002-06-30 00:00:00 Completed [facility] IPV 2002-06-30 00:00:00 Completed [facility] DTaP, Unspecified Formulation 2002-06-30 00:00:00 Completed [facility] MMR 2002-06-30 00:00:00 Completed [facility] IPV 2002-06-30 00:00:00 Completed [facility] DTaP, Unspecified Formulation 2002-06-30 00:00:00 Completed [facility] MMR 2002-06-30 00:00:00 Completed [facility] IPV 2002-06-30 00:00:00 Completed [facility] DTaP, Unspecified Formulation 2002-06-30 00:00:00 Completed [facility] MMR 2002-06-30 00:00:00 Completed [facility] IPV 2002-06-30 00:00:00 Completed [facility] DTaP, Unspecified Formulation 2002-06-30 00:00:00 Completed [facility] MMR 2002-06-30 00:00:00 Completed [facility] IPV 2002-06-30 00:00:00 Completed [facility] DTaP, Unspecified Formulation 2002-06-30 00:00:00 Completed [facility] MMR 2002-06-30 00:00:00 Completed [facility] IPV 2002-06-30 00:00:00 Completed [facility] DTaP, Unspecified Formulation 2002-06-30 00:00:00 Completed [facility] MMR 2002-06-30 00:00:00 Completed [facility] IPV 2002-06-30 00:00:00 Completed [facility] DTaP, Unspecified Formulation 2002-06-30 00:00:00 Completed [facility] MMR 2002-06-30 00:00:00 Completed [facility] IPV 2002-06-30 00:00:00 Completed [facility] DTaP, Unspecified Formulation 2002-06-30 00:00:00 Completed [facility] MMR 2002-06-30 00:00:00 Completed [facility] IPV 2002-06-30 00:00:00 Completed [facility] DTaP, Unspecified Formulation 2002-06-30 00:00:00 Completed [facility] MMR 2002-06-30 00:00:00 Completed [facility] IPV 2002-06-30 00:00:00 Completed [facility] DTaP, Unspecified Formulation 2000-03-24 00:00:00 Completed [facility] HIB 4 Dose Schedule 2000-03-24 00:00:00 Completed [facility] Pneumococcal 7 Conjugate, PCV7 (Prevnar7) 2000-03-24 00:00:00 Completed [facility] IPV 2000-03-24 00:00:00 Completed [facility] DTaP, Unspecified Formulation 2000-03-24 00:00:00 Completed [facility] HIB 4 Dose Schedule 2000-03-24 00:00:00 Completed [facility] Pneumococcal 7 Conjugate, PCV7 (Prevnar7) 2000-03-24 00:00:00 Completed [facility] IPV 2000-03-24 00:00:00 Completed [facility] DTaP, Unspecified Formulation 2000-03-24 00:00:00 Completed [facility] HIB 4 Dose Schedule 2000-03-24 00:00:00 Completed [facility] Pneumococcal 7 Conjugate, PCV7 (Prevnar7) 2000-03-24 00:00:00 Completed [facility] IPV 2000-03-24 00:00:00 Completed [facility] DTaP, Unspecified Formulation 2000-03-24 00:00:00 Completed [facility] HIB 4 Dose Schedule 2000-03-24 00:00:00 Completed [facility] Pneumococcal 7 Conjugate, PCV7 (Prevnar7) 2000-03-24 00:00:00 Completed [facility] IPV 2000-03-24 00:00:00 Completed [facility] DTaP, Unspecified Formulation 2000-03-24 00:00:00 Completed [facility] HIB 4 Dose Schedule 2000-03-24 00:00:00 Completed [facility] Pneumococcal 7 Conjugate, PCV7 (Prevnar7) 2000-03-24 00:00:00 Completed [facility] IPV 2000-03-24 00:00:00 Completed [facility] DTaP, Unspecified Formulation 2000-03-24 00:00:00 Completed [facility] HIB 4 Dose Schedule 2000-03-24 00:00:00 Completed [facility] Pneumococcal 7 Conjugate, PCV7 (Prevnar7) 2000-03-24 00:00:00 Completed [facility] IPV 2000-03-24 00:00:00 Completed [facility] DTaP, Unspecified Formulation 2000-03-24 00:00:00 Completed [facility] HIB 4 Dose Schedule 2000-03-24 00:00:00 Completed [facility] Pneumococcal 7 Conjugate, PCV7 (Prevnar7) 2000-03-24 00:00:00 Completed [facility] IPV 2000-03-24 00:00:00 Completed [facility] DTaP, Unspecified Formulation 2000-03-24 00:00:00 [facility]pleted [facility] [facility] 4 Dose Schedule 2000-03-24 00:00:00 Completed [facility] Pneumococcal 7 Conjugate, PCV7 (Prevnar7) 2000-03-24 00:00:00 Completed [facility] IPV 2000-03-24 00:00:00 Completed [facility] DTaP, Unspecified Formulation 2000-03-24 00:00:00 Completed [facility] HIB 4 Dose Schedule 2000-03-24 00:00:00 Completed [facility] Pneumococcal 7 Conjugate, PCV7 (Prevnar7) 2000-03-24 00:00:00 Completed [facility] IPV 2000-03-24 00:00:00 Completed [facility] DTaP, Unspecified Formulation 2000-03-24 00:00:00 Completed [facility] HIB 4 Dose Schedule 2000-03-24 00:00:00 Completed [facility] Pneumococcal 7 Conjugate, PCV7 (Prevnar7) 2000-03-24 00:00:00 Completed [facility] IPV 2000-03-24 00:00:00 Completed [facility] DTaP, Unspecified Formulation 2000-03-24 00:00:00 Completed [facility] HIB 4 Dose Schedule 2000-03-24 00:00:00 Completed [facility] Pneumococcal 7 Conjugate, PCV7 (Prevnar7) 2000-03-24 00:00:00 Completed [facility] IPV 2000-03-24 00:00:00 Completed [facility] DTaP, Unspecified Formulation 2000-03-24 00:00:00 Completed [facility] HIB 4 Dose Schedule 2000-03-24 00:00:00 Completed [facility] Pneumococcal 7 Conjugate, PCV7 (Prevnar7) 2000-03-24 00:00:00 Completed [facility] IPV 2000-03-24 00:00:00 Completed [facility] DTaP, Unspecified Formulation 2000-03-24 00:00:00 Completed [facility] HIB 4 Dose Schedule 2000-03-24 00:00:00 Completed [facility] Pneumococcal 7 Conjugate, PCV7 (Prevnar7) 2000-03-24 00:00:00 Completed [facility] IPV 2000-03-24 00:00:00 Completed [facility] DTaP, Unspecified Formulation 2000-03-24 00:00:00 Completed [facility] HIB 4 Dose Schedule 2000-03-24 00:00:00 Completed [facility] Pneumococcal 7 Conjugate, PCV7 (Prevnar7) 2000-03-24 00:00:00 Completed [facility] IPV 2000-03-24 00:00:00 Completed [facility] DTaP, Unspecified Formulation 2000-03-24 00:00:00 Completed [facility] HIB 4 Dose Schedule 2000-03-24 00:00:00 Completed [facility] Pneumococcal 7 Conjugate, PCV7 (Prevnar7) 2000-03-24 00:00:00 Completed [facility] IPV 2000-03-24 00:00:00 Completed [facility] DTaP, Unspecified Formulation 2000-03-24 00:00:00 Completed [facility] HIB 4 Dose Schedule 2000-03-24 00:00:00 Completed [facility] Pneumococcal 7 Conjugate, PCV7 (Prevnar7) 2000-03-24 00:00:00 Completed [facility] IPV 2000-03-24 00:00:00 Completed [facility] DTaP, Unspecified Formulation 2000-03-24 00:00:00 Completed [facility] HIB 4 Dose Schedule 2000-03-24 00:00:00 Completed [facility] Pneumococcal 7 Conjugate, PCV7 (Prevnar7) 2000-03-24 00:00:00 Completed [facility] IPV 2000-03-24 00:00:00 Completed [facility] DTaP, Unspecified Formulation 2000-03-24 00:00:00 Completed [facility] HIB 4 Dose Schedule 2000-03-24 00:00:00 Completed [facility] Pneumococcal 7 Conjugate, PCV7 (Prevnar7) 2000-03-24 00:00:00 Completed [facility] IPV 2000-03-24 00:00:00 Completed [facility] DTaP, Unspecified Formulation 2000-03-24 00:00:00 Completed [facility] HIB 4 Dose Schedule 2000-03-24 00:00:00 Completed [facility] Pneumococcal 7 Conjugate, PCV7 (Prevnar7) 2000-03-24 00:00:00 Completed [facility] IPV 2000-03-24 00:00:00 Completed [facility] DTaP, Unspecified Formulation 2000-03-24 00:00:00 Completed [facility] HIB 4 Dose Schedule 2000-03-24 00:00:00 Completed [facility] Pneumococcal 7 Conjugate, PCV7 (Prevnar7) 2000-03-24 00:00:00 Completed [facility] IPV 2000-03-24 00:00:00 Completed [facility] DTaP, Unspecified Formulation 2000-03-24 00:00:00 Completed [facility] HIB 4 Dose Schedule 2000-03-24 00:00:00 Completed [facility] Pneumococcal 7 Conjugate, PCV7 (Prevnar7) 2000-03-24 00:00:00 Completed [facility] IPV 2000-03-24 00:00:00 Completed [facility] DTaP, Unspecified Formulation 2000-03-24 00:00:00 Completed [facility] HIB 4 Dose Schedule 2000-03-24 00:00:00 Completed [facility] Pneumococcal 7 Conjugate, PCV7 (Prevnar7) 2000-03-24 00:00:00 Completed [facility] IPV 2000-03-24 00:00:00 Completed [facility] DTaP, Unspecified Formulation 2000-03-24 00:00:00 Completed [facility] HIB 4 Dose Schedule 2000-03-24 00:00:00 Completed [facility] Pneumococcal 7 Conjugate, PCV7 (Prevnar7) 2000-03-24 00:00:00 Completed [facility] IPV 2000-03-24 00:00:00 Completed [facility] DTaP, Unspecified Formulation 2000-03-24 00:00:00 Completed [facility] HIB 4 Dose Schedule 2000-03-24 00:00:00 Completed [facility] Pneumococcal 7 Conjugate, PCV7 (Prevnar7) 2000-03-24 00:00:00 Completed [facility] IPV 2000-03-24 00:00:00 Completed [facility] DTaP, Unspecified Formulation 2000-03-24 00:00:00 Completed [facility] HIB 4 Dose Schedule 2000-03-24 00:00:00 Completed [facility] Pneumococcal 7 Conjugate, PCV7 (Prevnar7) 2000-03-24 00:00:00 Completed [facility] IPV 2000-03-24 00:00:00 Completed [facility] DTaP, Unspecified Formulation 2000-03-24 00:00:00 Completed [facility] HIB 4 Dose Schedule 2000-03-24 00:00:00 Completed [facility] Pneumococcal 7 Conjugate, PCV7 (Prevnar7) 2000-03-24 00:00:00 Completed [facility] IPV 2000-03-24 00:00:00 Completed [facility] DTaP, Unspecified Formulation 2000-03-24 00:00:00 Completed [facility] HIB 4 Dose Schedule 2000-03-24 00:00:00 Completed [facility] Pneumococcal 7 Conjugate, PCV7 (Prevnar7) 2000-03-24 00:00:00 Completed [facility] IPV 2000-03-24 00:00:00 Completed [facility] DTaP, Unspecified Formulation 2000-03-24 00:00:00 Completed [facility] HIB 4 Dose Schedule 2000-03-24 00:00:00 Completed [facility] Pneumococcal 7 Conjugate, PCV7 (Prevnar7) 2000-03-24 00:00:00 Completed [facility] IPV 2000-03-24 00:00:00 Completed [facility] DTaP, Unspecified Formulation 2000-03-24 00:00:00 Completed [facility] HIB 4 Dose Schedule 2000-03-24 00:00:00 Completed [facility] Pneumococcal 7 Conjugate, PCV7 (Prevnar7) 2000-03-24 00:00:00 Completed [facility] IPV 2000-03-24 00:00:00 Completed [facility] DTaP, Unspecified Formulation 2000-03-24 00:00:00 Completed [facility] HIB 4 Dose Schedule 2000-03-24 00:00:00 Completed [facility] Pneumococcal 7 Conjugate, PCV7 (Prevnar7) 2000-03-24 00:00:00 Completed [facility] IPV 2000-03-24 00:00:00 Completed [facility] DTaP, Unspecified Formulation 2000-03-24 00:00:00 Completed [facility] HIB 4 Dose Schedule 2000-03-24 00:00:00 Completed [facility] Pneumococcal 7 Conjugate, PCV7 (Prevnar7) 2000-03-24 00:00:00 Completed [facility] IPV 2000-03-24 00:00:00 Completed [facility] DTaP, Unspecified Formulation 2000-03-24 00:00:00 Completed [facility] HIB 4 Dose Schedule 2000-03-24 00:00:00 Completed [facility] Pneumococcal 7 Conjugate, PCV7 (Prevnar7) 2000-03-24 00:00:00 Completed [facility] IPV 2000-03-24 00:00:00 Completed [facility] DTaP, Unspecified Formulation 2000-03-24 00:00:00 Completed [facility] HIB 4 Dose Schedule 2000-03-24 00:00:00 Completed [facility] Pneumococcal 7 Conjugate, PCV7 (Prevnar7) 2000-03-24 00:00:00 Completed [facility] IPV 2000-03-24 00:00:00 Completed [facility] DTaP, Unspecified Formulation 2000-03-24 00:00:00 Completed [facility] HIB 4 Dose Schedule 2000-03-24 00:00:00 Completed [facility] Pneumococcal 7 Conjugate, PCV7 (Prevnar7) 2000-03-24 00:00:00 Completed [facility] IPV 2000-03-24 00:00:00 Completed [facility] DTaP, Unspecified Formulation 2000-03-24 00:00:00 Completed [facility] HIB 4 Dose Schedule 2000-03-24 00:00:00 Completed [facility] Pneumococcal 7 Conjugate, PCV7 (Prevnar7) 2000-03-24 00:00:00 Completed [facility] IPV 2000-03-24 00:00:00 Completed [facility] DTaP, Unspecified Formulation 2000-03-24 00:00:00 Completed [facility] HIB 4 Dose Schedule 2000-03-24 00:00:00 Completed [facility] Pneumococcal 7 Conjugate, PCV7 (Prevnar7) 2000-03-24 00:00:00 Completed [facility] IPV 2000-03-24 00:00:00 Completed [facility] DTaP, Unspecified Formulation 2000-03-24 00:00:00 Completed [facility] HIB 4 Dose Schedule 2000-03-24 00:00:00 Completed [facility] Pneumococcal 7 Conjugate, PCV7 (Prevnar7) 2000-03-24 00:00:00 Completed [facility] IPV 2000-03-24 00:00:00 Completed [facility] DTaP, Unspecified Formulation 2000-03-24 00:00:00 Completed [facility] HIB 4 Dose Schedule 2000-03-24 00:00:00 Completed [facility] Pneumococcal 7 Conjugate, PCV7 (Prevnar7) 2000-03-24 00:00:00 Completed [facility] IPV 2000-03-24 00:00:00 Completed [facility] DTaP, Unspecified Formulation 2000-03-24 00:00:00 Completed [facility] HIB 4 Dose Schedule 2000-03-24 00:00:00 Completed [facility] Pneumococcal 7 Conjugate, PCV7 (Prevnar7) 2000-03-24 00:00:00 Completed [facility] IPV 2000-03-24 00:00:00 Completed [facility] Varicella (varivax)(chicken pox) 1999-03-11 00:00:00 Completed [facility] Hep B, Adol or Pedi Dosage 1999-03-11 00:00:00 Completed [facility] MMR 1999-03-11 00:00:00 Completed [facility] Varicella (varivax)(chicken pox) 1999-03-11 00:00:00 Completed [facility] Hep B, Adol or Pedi Dosage 1999-03-11 00:00:00 Completed [facility] MMR 1999-03-11 00:00:00 Completed [facility] Varicella (varivax)(chicken pox) 1999-03-11 00:00:00 Completed [facility] Hep B, Adol or Pedi Dosage 1999-03-11 00:00:00 Completed [facility] MMR 1999-03-11 00:00:00 Completed [facility] Varicella (varivax)(chicken pox) 1999-03-11 00:00:00 Completed [facility] Hep B, Adol or Pedi Dosage 1999-03-11 00:00:00 Completed [facility] MMR 1999-03-11 00:00:00 Completed [facility] Varicella (varivax)(chicken pox) 1999-03-11 00:00:00 Completed [facility] Hep B, Adol or Pedi Dosage 1999-03-11 00:00:00 Completed [facility] MMR 1999-03-11 00:00:00 Completed [facility] Varicella (varivax)(chicken pox) 1999-03-11 00:00:00 Completed [facility] Hep B, Adol or Pedi Dosage 1999-03-11 00:00:00 Completed [facility] MMR 1999-03-11 00:00:00 Completed [facility] Varicella (varivax)(chicken pox) 1999-03-11 00:00:00 Completed [facility] Hep B, Adol or Pedi Dosage 1999-03-11 00:00:00 Completed [facility] MMR 1999-03-11 00:00:00 Completed [facility] Varicella (varivax)(chicken pox) 1999-03-11 00:00:00 Completed [facility] Hep B, Adol or Pedi Dosage 1999-03-11 00:00:00 Completed [facility] MMR 1999-03-11 00:00:00 Completed [facility] Varicella (varivax)(chicken pox) 1999-03-11 00:00:00 Completed [facility] Hep B, Adol or Pedi Dosage 1999-03-11 00:00:00 Completed [facility] MMR 1999-03-11 00:00:00 Completed [facility] Varicella (varivax)(chicken pox) 1999-03-11 00:00:00 Completed [facility] Hep B, Adol or Pedi Dosage 1999-03-11 00:00:00 Completed [facility] MMR 1999-03-11 00:00:00 Completed [facility] Varicella (varivax)(chicken pox) 1999-03-11 00:00:00 Completed [facility] Hep B, Adol or Pedi Dosage 1999-03-11 00:00:00 Completed [facility] MMR 1999-03-11 00:00:00 Completed [facility] Varicella (varivax)(chicken pox) 1999-03-11 00:00:00 Completed [facility] Hep B, Adol or Pedi Dosage 1999-03-11 00:00:00 Completed [facility] MMR 1999-03-11 00:00:00 Completed [facility] Varicella (varivax)(chicken pox) 1999-03-11 00:00:00 Completed [facility] Hep B, Adol or Pedi Dosage 1999-03-11 00:00:00 Completed [facility] MMR 1999-03-11 00:00:00 Completed [facility] Varicella (varivax)(chicken pox) 1999-03-11 00:00:00 Completed [facility] Hep B, Adol or Pedi Dosage 1999-03-11 00:00:00 Completed [facility] MMR 1999-03-11 00:00:00 Completed [facility] Varicella (varivax)(chicken pox) 1999-03-11 00:00:00 Completed [facility] Hep B, Adol or Pedi Dosage 1999-03-11 00:00:00 Completed [facility] MMR 1999-03-11 00:00:00 Completed [facility] Varicella (varivax)(chicken pox) 1999-03-11 00:00:00 Completed [facility] Hep B, Adol or Pedi Dosage 1999-03-11 00:00:00 Completed [facility] MMR 1999-03-11 00:00:00 Completed [facility] Varicella (varivax)(chicken pox) 1999-03-11 00:00:00 Completed [facility] Hep B, Adol or Pedi Dosage 1999-03-11 00:00:00 Completed [facility] MMR 1999-03-11 00:00:00 Completed [facility] Varicella (varivax)(chicken pox) 1999-03-11 00:00:00 Completed [facility] Hep B, Adol or Pedi Dosage 1999-03-11 00:00:00 Completed [facility] MMR 1999-03-11 00:00:00 Completed [facility] Varicella (varivax)(chicken pox) 1999-03-11 00:00:00 Completed [facility] Hep B, Adol or Pedi Dosage 1999-03-11 00:00:00 Completed [facility] MMR 1999-03-11 00:00:00 Completed [facility] Varicella (varivax)(chicken pox) 1999-03-11 00:00:00 Completed [facility] Hep B, Adol or Pedi Dosage 1999-03-11 00:00:00 Completed [facility] MMR 1999-03-11 00:00:00 Completed [facility] Varicella (varivax)(chicken pox) 1999-03-11 00:00:00 Completed [facility] Hep B, Adol or Pedi Dosage 1999-03-11 00:00:00 Completed [facility] MMR 1999-03-11 00:00:00 Completed [facility] Varicella (varivax)(chicken pox) 1999-03-11 00:00:00 Completed [facility] Hep B, Adol or Pedi Dosage 1999-03-11 00:00:00 Completed [facility] MMR 1999-03-11 00:00:00 Completed [facility] Varicella (varivax)(chicken pox) 1999-03-11 00:00:00 Completed [facility] Hep B, Adol or Pedi Dosage 1999-03-11 00:00:00 Completed [facility] MMR 1999-03-11 00:00:00 Completed [facility] Varicella (varivax)(chicken pox) 1999-03-11 00:00:00 Completed [facility] Hep B, Adol or Pedi Dosage 1999-03-11 00:00:00 Completed [facility] MMR 1999-03-11 00:00:00 Completed [facility] Varicella (varivax)(chicken pox) 1999-03-11 00:00:00 Completed [facility] Hep B, Adol or Pedi Dosage 1999-03-11 00:00:00 Completed [facility] MMR 1999-03-11 00:00:00 Completed [facility] Varicella (varivax)(chicken pox) 1999-03-11 00:00:00 Completed [facility] Hep B, Adol or Pedi Dosage 1999-03-11 00:00:00 Completed [facility] MMR 1999-03-11 00:00:00 Completed [facility] Varicella (varivax)(chicken pox) 1999-03-11 00:00:00 Completed [facility] Hep B, Adol or Pedi Dosage 1999-03-11 00:00:00 Completed [facility] MMR 1999-03-11 00:00:00 Completed [facility] Varicella (varivax)(chicken pox) 1999-03-11 00:00:00 Completed [facility] Hep B, Adol or Pedi Dosage 1999-03-11 00:00:00 Completed [facility] MMR 1999-03-11 00:00:00 Completed [facility] Varicella (varivax)(chicken pox) 1999-03-11 00:00:00 Completed [facility] Hep B, Adol or Pedi Dosage 1999-03-11 00:00:00 Completed [facility] MMR 1999-03-11 00:00:00 Completed [facility] Varicella (varivax)(chicken pox) 1999-03-11 00:00:00 Completed [facility] Hep B, Adol or Pedi Dosage 1999-03-11 00:00:00 Completed [facility] MMR 1999-03-11 00:00:00 Completed [facility] Varicella (varivax)(chicken pox) 1999-03-11 00:00:00 Completed [facility] Hep B, Adol or Pedi Dosage 1999-03-11 00:00:00 Completed [facility] MMR 1999-03-11 00:00:00 Completed [facility] Varicella (varivax)(chicken pox) 1999-03-11 00:00:00 Completed [facility] Hep B, Adol or Pedi Dosage 1999-03-11 00:00:00 Completed [facility] MMR 1999-03-11 00:00:00 Completed [facility] Varicella (varivax)(chicken pox) 1999-03-11 00:00:00 Completed [facility] Hep B, Adol or Pedi Dosage 1999-03-11 00:00:00 Completed [facility] MMR 1999-03-11 00:00:00 Completed [facility] Varicella (varivax)(chicken pox) 1999-03-11 00:00:00 Completed [facility] Hep B, Adol or Pedi Dosage 1999-03-11 00:00:00 Completed [facility] MMR 1999-03-11 00:00:00 Completed [facility] Varicella (varivax)(chicken pox) 1999-03-11 00:00:00 Completed [facility] Hep B, Adol or Pedi Dosage 1999-03-11 00:00:00 Completed [facility] MMR 1999-03-11 00:00:00 Completed [facility] Varicella (varivax)(chicken pox) 1999-03-11 00:00:00 Completed [facility] Hep B, Adol or Pedi Dosage 1999-03-11 00:00:00 Completed [facility] MMR 1999-03-11 00:00:00 Completed [facility] Varicella (varivax)(chicken pox) 1999-03-11 00:00:00 Completed [facility] Hep B, Adol or Pedi Dosage 1999-03-11 00:00:00 Completed [facility] MMR 1999-03-11 00:00:00 Completed [facility] Varicella (varivax)(chicken pox) 1999-03-11 00:00:00 Completed [facility] Hep B, Adol or Pedi Dosage 1999-03-11 00:00:00 Completed [facility] MMR 1999-03-11 00:00:00 Completed [facility] Varicella (varivax)(chicken pox) 1999-03-11 00:00:00 Completed [facility] Hep B, Adol or Pedi Dosage 1999-03-11 00:00:00 Completed [facility] MMR 1999-03-11 00:00:00 Completed [facility] HIB 4 Dose Schedule 1999-01-10 00:00:00 Completed [facility] HIB 4 Dose Schedule 1999-01-10 00:00:00 Completed [facility] HIB 4 Dose Schedule 1999-01-10 00:00:00 Completed [facility] HIB 4 Dose Schedule 1999-01-10 00:00:00 Completed [facility] HIB 4 Dose Schedule 1999-01-10 00:00:00 Completed [facility] HIB 4 Dose Schedule 1999-01-10 00:00:00 Completed [facility] HIB 4 Dose Schedule 1999-01-10 00:00:00 Completed [facility] HIB 4 Dose Schedule 1999-01-10 00:00:00 Completed [facility] HIB 4 Dose Schedule 1999-01-10 00:00:00 Completed [facility] HIB 4 Dose Schedule 1999-01-10 00:00:00 Completed [facility] HIB 4 Dose Schedule 1999-01-10 00:00:00 Completed [facility] HIB 4 Dose Schedule 1999-01-10 00:00:00 Completed [facility] HIB 4 Dose Schedule 1999-01-10 00:00:00 Completed [facility] HIB 4 Dose Schedule 1999-01-10 00:00:00 Completed [facility] HIB 4 Dose Schedule 1999-01-10 00:00:00 Completed [facility] HIB 4 Dose Schedule 1999-01-10 00:00:00 Completed [facility] HIB 4 Dose Schedule 1999-01-10 00:00:00 Completed [facility] HIB 4 Dose Schedule 1999-01-10 00:00:00 Completed [facility] HIB 4 Dose Schedule 1999-01-10 00:00:00 Completed [facility] HIB 4 Dose Schedule 1999-01-10 00:00:00 Completed [facility] HIB 4 Dose Schedule 1999-01-10 00:00:00 Completed [facility] HIB 4 Dose Schedule 1999-01-10 00:00:00 Completed [facility] HIB 4 Dose Schedule 1999-01-10 00:00:00 Completed [facility] HIB 4 Dose Schedule 1999-01-10 00:00:00 Completed [facility] HIB 4 Dose Schedule 1999-01-10 00:00:00 Completed [facility] HIB 4 Dose Schedule 1999-01-10 00:00:00 Completed [facility] HIB 4 Dose Schedule 1999-01-10 00:00:00 Completed [facility] HIB 4 Dose Schedule 1999-01-10 00:00:00 Completed [facility] HIB 4 Dose Schedule 1999-01-10 00:00:00 Completed [facility] HIB 4 Dose Schedule 1999-01-10 00:00:00 Completed [facility] HIB 4 Dose Schedule 1999-01-10 00:00:00 Completed [facility] HIB 4 Dose Schedule 1999-01-10 00:00:00 Completed [facility] HIB 4 Dose Schedule 1999-01-10 00:00:00 Completed [facility] HIB 4 Dose Schedule 1999-01-10 00:00:00 Completed [facility] HIB 4 Dose Schedule 1999-01-10 00:00:00 Completed [facility] HIB 4 Dose Schedule 1999-01-10 00:00:00 Completed [facility] HIB 4 Dose Schedule 1999-01-10 00:00:00 Completed [facility] HIB 4 Dose Schedule 1999-01-10 00:00:00 Completed [facility] HIB 4 Dose Schedule 1999-01-10 00:00:00 Completed [facility] DTaP, Unspecified Formulation 1998 00:00:00 Completed [facility] HIB 4 Dose Schedule 1998 00:00:00 Completed [facility] DTaP, Unspecified Formulation 1998 00:00:00 Completed [facility] HIB 4 Dose Schedule 1998 00:00:00 Completed [facility] DTaP, Unspecified Formulation 1998 00:00:00 Completed [facility] HIB 4 Dose Schedule 1998 00:00:00 Completed [facility] DTaP, Unspecified Formulation 1998 00:00:00 Completed [facility] HIB 4 Dose Schedule 1998 00:00:00 Completed [facility] DTaP, Unspecified Formulation 1998 00:00:00 Completed [facility] HIB 4 Dose Schedule 1998 00:00:00 Completed [facility] DTaP, Unspecified Formulation 1998 00:00:00 Completed [facility] HIB 4 Dose Schedule 1998 00:00:00 Completed [facility] DTaP, Unspecified Formulation 1998 00:00:00 Completed [facility] HIB 4 Dose Schedule 1998 00:00:00 Completed [facility] DTaP, Unspecified Formulation 1998 00:00:00 Completed [facility] HIB 4 Dose Schedule 1998 00:00:00 Completed [facility] DTaP, Unspecified Formulation 1998 00:00:00 Completed [facility] HIB 4 Dose Schedule 1998 00:00:00 Completed [facility] DTaP, Unspecified Formulation 1998 00:00:00 Completed [facility] HIB 4 Dose Schedule 1998 00:00:00 Completed [facility] DTaP, Unspecified Formulation 1998 00:00:00 Completed [facility] HIB 4 Dose Schedule 1998 00:00:00 Completed [facility] DTaP, Unspecified Formulation 1998 00:00:00 Completed [facility] HIB 4 Dose Schedule 1998 00:00:00 Completed [facility] DTaP, Unspecified Formulation 1998 00:00:00 Completed [facility] HIB 4 Dose Schedule 1998 00:00:00 Completed [facility] DTaP, Unspecified Formulation 1998 00:00:00 Completed [facility] HIB 4 Dose Schedule 1998 00:00:00 Completed [facility] DTaP, Unspecified Formulation 1998 00:00:00 Completed [facility] HIB 4 Dose Schedule 1998 00:00:00 Completed [facility] DTaP, Unspecified Formulation 1998 00:00:00 Completed [facility] HIB 4 Dose Schedule 1998 00:00:00 Completed [facility] DTaP, Unspecified Formulation 1998 00:00:00 Completed [facility] HIB 4 Dose Schedule 1998 00:00:00 Completed [facility] DTaP, Unspecified Formulation 1998 00:00:00 Completed [facility] HIB 4 Dose Schedule 1998 00:00:00 Completed [facility] DTaP, Unspecified Formulation 1998 00:00:00 Completed [facility] HIB 4 Dose Schedule 1998 00:00:00 Completed [facility] DTaP, Unspecified Formulation 1998 00:00:00 Completed [facility] HIB 4 Dose Schedule 1998 00:00:00 Completed [facility] DTaP, Unspecified Formulation 1998 00:00:00 Completed [facility] HIB 4 Dose Schedule 1998 00:00:00 Completed [facility] DTaP, Unspecified Formulation 1998 00:00:00 Completed [facility] HIB 4 Dose Schedule 1998 00:00:00 Completed [facility] DTaP, Unspecified Formulation 1998 00:00:00 Completed [facility] HIB 4 Dose Schedule 1998 00:00:00 Completed [facility] DTaP, Unspecified Formulation 1998 00:00:00 Completed [facility] HIB 4 Dose Schedule 1998 00:00:00 Completed [facility] DTaP, Unspecified Formulation 1998 00:00:00 Completed [facility] HIB 4 Dose Schedule 1998 00:00:00 Completed [facility] DTaP, Unspecified Formulation 1998 00:00:00 Completed [facility] HIB 4 Dose Schedule 1998 00:00:00 Completed [facility] DTaP, Unspecified Formulation 1998 00:00:00 Completed [facility] HIB 4 Dose Schedule 1998 00:00:00 Completed [facility] DTaP, Unspecified Formulation 1998 00:00:00 Completed [facility] HIB 4 Dose Schedule 1998 00:00:00 Completed [facility] DTaP, Unspecified Formulation 1998 00:00:00 Completed [facility] HIB 4 Dose Schedule 1998 00:00:00 Completed [facility] DTaP, Unspecified Formulation 1998 00:00:00 Completed [facility] HIB 4 Dose Schedule 1998 00:00:00 Completed [facility] DTaP, Unspecified Formulation 1998 00:00:00 Completed [facility] HIB 4 Dose Schedule 1998 00:00:00 Completed [facility] DTaP, Unspecified Formulation 1998 00:00:00 Completed [facility] HIB 4 Dose Schedule 1998 00:00:00 Completed [facility] DTaP, Unspecified Formulation 1998 00:00:00 Completed [facility] HIB 4 Dose Schedule 1998 00:00:00 Completed [facility] DTaP, Unspecified Formulation 1998 00:00:00 Completed [facility] HIB 4 Dose Schedule 1998 00:00:00 Completed [facility] DTaP, Unspecified Formulation 1998 00:00:00 Completed [facility] HIB 4 Dose Schedule 1998 00:00:00 Completed [facility] DTaP, Unspecified Formulation 1998 00:00:00 Completed [facility] HIB 4 Dose Schedule 1998 00:00:00 Completed [facility] DTaP, Unspecified Formulation 1998 00:00:00 Completed [facility] HIB 4 Dose Schedule 1998 00:00:00 Completed [facility] DTaP, Unspecified Formulation 1998 00:00:00 Completed [facility] HIB 4 Dose Schedule 1998 00:00:00 Completed [facility] DTaP, Unspecified Formulation 1998 00:00:00 Completed [facility] HIB 4 Dose Schedule 1998 00:00:00 Completed [facility] DTaP, Unspecified Formulation 1998 00:00:00 Completed [facility] Hep B, Adol or Pedi Dosage 1998 00:00:00 Completed [facility] HIB 4 Dose Schedule 1998 00:00:00 Completed [facility] IPV 1998 00:00:00 Completed [facility] DTaP, Unspecified Formulation 1998 00:00:00 Completed [facility] Hep B, Adol or Pedi Dosage 1998 00:00:00 Completed [facility] HIB 4 Dose Schedule 1998 00:00:00 Completed [facility] IPV 1998 00:00:00 Completed [facility] DTaP, Unspecified Formulation 1998 00:00:00 Completed [facility] Hep B, Adol or Pedi Dosage 1998 00:00:00 Completed [facility] HIB 4 Dose Schedule 1998 00:00:00 Completed [facility] IPV 1998 00:00:00 Completed [facility] DTaP, Unspecified Formulation 1998 00:00:00 Completed [facility] Hep B, Adol or Pedi Dosage 1998 00:00:00 Completed [facility] HIB 4 Dose Schedule 1998 00:00:00 Completed [facility] IPV 1998 00:00:00 Completed [facility] DTaP, Unspecified Formulation 1998 00:00:00 Completed [facility] Hep B, Adol or Pedi Dosage 1998 00:00:00 Completed [facility] HIB 4 Dose Schedule 1998 00:00:00 Completed [facility] IPV 1998 00:00:00 Completed [facility] DTaP, Unspecified Formulation 1998 00:00:00 Completed [facility] Hep B, Adol or Pedi Dosage 1998 00:00:00 Completed [facility] HIB 4 Dose Schedule 1998 00:00:00 Completed [facility] IPV 1998 00:00:00 Completed [facility] DTaP, Unspecified Formulation 1998 00:00:00 Completed [facility] Hep B, Adol or Pedi Dosage 1998 00:00:00 Completed [facility] HIB 4 Dose Schedule 1998 00:00:00 Completed [facility] IPV 1998 00:00:00 Completed [facility] DTaP, Unspecified Formulation 1998 00:00:00 Completed [facility] Hep B, Adol or Pedi Dosage 1998 00:00:00 Completed [facility] HIB 4 Dose Schedule 1998 00:00:00 Completed [facility] IPV 1998 00:00:00 Completed [facility] DTaP, Unspecified Formulation 1998 00:00:00 Completed [facility] Hep B, Adol or Pedi Dosage 1998 00:00:00 Completed [facility] HIB 4 Dose Schedule 1998 00:00:00 Completed [facility] IPV 1998 00:00:00 Completed [facility] DTaP, Unspecified Formulation 1998 00:00:00 Completed [facility] Hep B, Adol or Pedi Dosage 1998 00:00:00 Completed [facility] HIB 4 Dose Schedule 1998 00:00:00 Completed [facility] IPV 1998 00:00:00 Completed [facility] DTaP, Unspecified Formulation 1998 00:00:00 Completed [facility] Hep B, Adol or Pedi Dosage 1998 00:00:00 Completed [facility] HIB 4 Dose Schedule 1998 00:00:00 Completed [facility] IPV 1998 00:00:00 Completed [facility] DTaP, Unspecified Formulation 1998 00:00:00 Completed [facility] Hep B, Adol or Pedi Dosage 1998 00:00:00 Completed [facility] HIB 4 Dose Schedule 1998 00:00:00 Completed [facility] IPV 1998 00:00:00 Completed [facility] DTaP, Unspecified Formulation 1998 00:00:00 Completed [facility] Hep B, Adol or Pedi Dosage 1998 00:00:00 Completed [facility] HIB 4 Dose Schedule 1998 00:00:00 Completed [facility] IPV 1998 00:00:00 Completed [facility] DTaP, Unspecified Formulation 1998 00:00:00 Completed [facility] Hep B, Adol or Pedi Dosage 1998 00:00:00 Completed [facility] HIB 4 Dose Schedule 1998 00:00:00 Completed [facility] IPV 1998 00:00:00 Completed [facility] DTaP, Unspecified Formulation 1998 00:00:00 Completed [facility] Hep B, Adol or Pedi Dosage 1998 00:00:00 Completed [facility] HIB 4 Dose Schedule 1998 00:00:00 Completed [facility] IPV 1998 00:00:00 Completed [facility] DTaP, Unspecified Formulation 1998 00:00:00 Completed [facility] Hep B, Adol or Pedi Dosage 1998 00:00:00 Completed [facility] HIB 4 Dose Schedule 1998 00:00:00 Completed [facility] IPV 1998 00:00:00 Completed [facility] DTaP, Unspecified Formulation 1998 00:00:00 Completed [facility] Hep B, Adol or Pedi Dosage 1998 00:00:00 Completed [facility] HIB 4 Dose Schedule 1998 00:00:00 Completed [facility] IPV 1998 00:00:00 Completed [facility] DTaP, Unspecified Formulation 1998 00:00:00 Completed [facility] Hep B, Adol or Pedi Dosage 1998 00:00:00 Completed [facility] HIB 4 Dose Schedule 1998 00:00:00 Completed [facility] IPV 1998 00:00:00 Completed [facility] DTaP, Unspecified Formulation 1998 00:00:00 Completed [facility] Hep B, Adol or Pedi Dosage 1998 00:00:00 Completed [facility] HIB 4 Dose Schedule 1998 00:00:00 Completed [facility] IPV 1998 00:00:00 Completed [facility] DTaP, Unspecified Formulation 1998 00:00:00 Completed [facility] Hep B, Adol or Pedi Dosage 1998 00:00:00 Completed [facility] HIB 4 Dose Schedule 1998 00:00:00 Completed [facility] IPV 1998 00:00:00 Completed [facility] DTaP, Unspecified Formulation 1998 00:00:00 Completed [facility] Hep B, Adol or Pedi Dosage 1998 00:00:00 Completed [facility] HIB 4 Dose Schedule 1998 00:00:00 Completed [facility] IPV 1998 00:00:00 Completed [facility] DTaP, Unspecified Formulation 1998 00:00:00 Completed [facility] Hep B, Adol or Pedi Dosage 1998 00:00:00 Completed [facility] HIB 4 Dose Schedule 1998 00:00:00 Completed [facility] IPV 1998 00:00:00 Completed [facility] DTaP, Unspecified Formulation 1998 00:00:00 Completed [facility] Hep B, Adol or Pedi Dosage 1998 00:00:00 Completed [facility] HIB 4 Dose Schedule 1998 00:00:00 Completed [facility] IPV 1998 00:00:00 Completed [facility] DTaP, Unspecified Formulation 1998 00:00:00 Completed [facility] Hep B, Adol or Pedi Dosage 1998 00:00:00 Completed [facility] HIB 4 Dose Schedule 1998 00:00:00 Completed [facility] IPV 1998 00:00:00 Completed [facility] DTaP, Unspecified Formulation 1998 00:00:00 Completed [facility] Hep B, Adol or Pedi Dosage 1998 00:00:00 Completed [facility] HIB 4 Dose Schedule 1998 00:00:00 Completed [facility] IPV 1998 00:00:00 Completed [facility] DTaP, Unspecified Formulation 1998 00:00:00 Completed [facility] Hep B, Adol or Pedi Dosage 1998 00:00:00 Completed [facility] HIB 4 Dose Schedule 1998 00:00:00 Completed [facility] IPV 1998 00:00:00 Completed [facility] DTaP, Unspecified Formulation 1998 00:00:00 Completed [facility] Hep B, Adol or Pedi Dosage 1998 00:00:00 Completed [facility] HIB 4 Dose Schedule 1998 00:00:00 Completed [facility] IPV 1998 00:00:00 Completed [facility] DTaP, Unspecified Formulation 1998 00:00:00 Completed [facility] Hep B, Adol or Pedi Dosage 1998 00:00:00 Completed [facility] HIB 4 Dose Schedule 1998 00:00:00 Completed [facility] IPV 1998 00:00:00 Completed [facility] DTaP, Unspecified Formulation 1998 00:00:00 Completed [facility] Hep B, Adol or Pedi Dosage 1998 00:00:00 Completed [facility] HIB 4 Dose Schedule 1998 00:00:00 Completed [facility] IPV 1998 00:00:00 Completed [facility] DTaP, Unspecified Formulation 1998 00:00:00 Completed [facility] Hep B, Adol or Pedi Dosage 1998 00:00:00 Completed [facility] HIB 4 Dose Schedule 1998 00:00:00 Completed [facility] IPV 1998 00:00:00 Completed [facility] DTaP, Unspecified Formulation 1998 00:00:00 Completed [facility] Hep B, Adol or Pedi Dosage 1998 00:00:00 Completed [facility] HIB 4 Dose Schedule 1998 00:00:00 Completed [facility] IPV 1998 00:00:00 Completed [facility] DTaP, Unspecified Formulation 1998 00:00:00 Completed [facility] Hep B, Adol or Pedi Dosage 1998 00:00:00 Completed [facility] HIB 4 Dose Schedule 1998 00:00:00 Completed [facility] IPV 1998 00:00:00 Completed [facility] DTaP, Unspecified Formulation 1998 00:00:00 Completed [facility] Hep B, Adol or Pedi Dosage 1998 00:00:00 Completed [facility] HIB 4 Dose Schedule 1998 00:00:00 Completed [facility] IPV 1998 00:00:00 Completed [facility] DTaP, Unspecified Formulation 1998 00:00:00 Completed [facility] Hep B, Adol or Pedi Dosage 1998 00:00:00 Completed [facility] HIB 4 Dose Schedule 1998 00:00:00 Completed [facility] IPV 1998 00:00:00 Completed [facility] DTaP, Unspecified Formulation 1998 00:00:00 Completed [facility] Hep B, Adol or Pedi Dosage 1998 00:00:00 Completed [facility] HIB 4 Dose Schedule 1998 00:00:00 Completed [facility] IPV 1998 00:00:00 Completed [facility] DTaP, Unspecified Formulation 1998 00:00:00 Completed [facility] Hep B, Adol or Pedi Dosage 1998 00:00:00 Completed [facility] HIB 4 Dose Schedule 1998 00:00:00 Completed [facility] IPV 1998 00:00:00 Completed [facility] DTaP, Unspecified Formulation 1998 00:00:00 Completed [facility] Hep B, Adol or Pedi Dosage 1998 00:00:00 Completed [facility] HIB 4 Dose Schedule 1998 00:00:00 Completed [facility] IPV 1998 00:00:00 Completed [facility] DTaP, Unspecified Formulation 1998 00:00:00 Completed [facility] Hep B, Adol or Pedi Dosage 1998 00:00:00 Completed [facility] HIB 4 Dose Schedule 1998 00:00:00 Completed [facility] IPV 1998 00:00:00 Completed [facility] DTaP, Unspecified Formulation 1998 00:00:00 Completed [facility] Hep B, Adol or Pedi Dosage 1998 00:00:00 Completed [facility] HIB 4 Dose Schedule 1998 00:00:00 Completed [facility] IPV 1998 00:00:00 Completed [facility] DTaP, Unspecified Formulation 1998 00:00:00 Completed [facility] IPV 1998 00:00:00 Completed [facility] DTaP, Unspecified Formulation 1998 00:00:00 Completed [facility] IPV 1998 00:00:00 Completed [facility] DTaP, Unspecified Formulation 1998 00:00:00 Completed [facility] IPV 1998 00:00:00 Completed [facility] DTaP, Unspecified Formulation 1998 00:00:00 Completed [facility] IPV 1998 00:00:00 Completed [facility] DTaP, Unspecified Formulation 1998 00:00:00 Completed [facility] IPV 1998 00:00:00 Completed [facility] DTaP, Unspecified Formulation 1998 00:00:00 Completed [facility] IPV 1998 00:00:00 Completed [facility] DTaP, Unspecified Formulation 1998 00:00:00 Completed [facility] IPV 1998 00:00:00 Completed [facility] DTaP, Unspecified Formulation 1998 00:00:00 Completed [facility] IPV 1998 00:00:00 Completed [facility] DTaP, Unspecified Formulation 1998 00:00:00 Completed [facility] IPV 1998 00:00:00 Completed [facility] DTaP, Unspecified Formulation 1998 00:00:00 Completed [facility] IPV 1998 00:00:00 Completed [facility] DTaP, Unspecified Formulation 1998 00:00:00 Completed [facility] IPV 1998 00:00:00 Completed [facility] DTaP, Unspecified Formulation 1998 00:00:00 Completed [facility] IPV 1998 00:00:00 Completed [facility] DTaP, Unspecified Formulation 1998 00:00:00 Completed [facility] IPV 1998 00:00:00 Completed [facility] DTaP, Unspecified Formulation 1998 00:00:00 Completed [facility] IPV 1998 00:00:00 Completed [facility] DTaP, Unspecified Formulation 1998 00:00:00 Completed [facility] IPV 1998 00:00:00 Completed [facility] DTaP, Unspecified Formulation 1998 00:00:00 Completed [facility] IPV 1998 00:00:00 Completed [facility] DTaP, Unspecified Formulation 1998 00:00:00 Completed [facility] IPV 1998 00:00:00 Completed [facility] DTaP, Unspecified Formulation 1998 00:00:00 Completed [facility] IPV 1998 00:00:00 Completed [facility] DTaP, Unspecified Formulation 1998 00:00:00 Completed [facility] IPV 1998 00:00:00 Completed [facility] DTaP, Unspecified Formulation 1998 00:00:00 Completed [facility] IPV 1998 00:00:00 Completed [facility] DTaP, Unspecified Formulation 1998 00:00:00 Completed [facility] IPV 1998 00:00:00 Completed [facility] DTaP, Unspecified Formulation 1998 00:00:00 Completed [facility] IPV 1998 00:00:00 Completed [facility] DTaP, Unspecified Formulation 1998 00:00:00 Completed [facility] IPV 1998 00:00:00 Completed [facility] DTaP, Unspecified Formulation 1998 00:00:00 Completed [facility] IPV 1998 00:00:00 Completed [facility] DTaP, Unspecified Formulation 1998 00:00:00 Completed [facility] IPV 1998 00:00:00 Completed [facility] DTaP, Unspecified Formulation 1998 00:00:00 Completed [facility] IPV 1998 00:00:00 Completed [facility] DTaP, Unspecified Formulation 1998 00:00:00 Completed [facility] IPV 1998 00:00:00 Completed [facility] DTaP, Unspecified Formulation 1998 00:00:00 Completed [facility] IPV 1998 00:00:00 Completed [facility] DTaP, Unspecified Formulation 1998 00:00:00 Completed [facility] IPV 1998 00:00:00 Completed [facility] DTaP, Unspecified Formulation 1998 00:00:00 Completed [facility] IPV 1998 00:00:00 Completed [facility] DTaP, Unspecified Formulation 1998 00:00:00 Completed [facility] IPV 1998 00:00:00 Completed [facility] DTaP, Unspecified Formulation 1998 00:00:00 Completed [facility] IPV 1998 00:00:00 Completed [facility] DTaP, Unspecified Formulation 1998 00:00:00 Completed [facility] IPV 1998 00:00:00 Completed [facility] DTaP, Unspecified Formulation 1998 00:00:00 Completed [facility] IPV 1998 00:00:00 Completed [facility] DTaP, Unspecified Formulation 1998 00:00:00 Completed [facility] IPV 1998 00:00:00 Completed [facility] DTaP, Unspecified Formulation 1998 00:00:00 Completed [facility] IPV 1998 00:00:00 Completed [facility] DTaP, Unspecified Formulation 1998 00:00:00 Completed [facility] IPV 1998 00:00:00 Completed [facility] DTaP, Unspecified Formulation 1998 00:00:00 Completed [facility] IPV 1998 00:00:00 Completed [facility] DTaP, Unspecified Formulation 1998 00:00:00 Completed [facility] IPV 1998 00:00:00 Completed [facility] Hep B, Adol or Pedi Dosage 1998 00:00:00 Completed [facility] Hep B, Adol or Pedi Dosage 1998 00:00:00 Completed [facility] Hep B, Adol or Pedi Dosage 1998 00:00:00 Completed [facility] Hep B, Adol or Pedi Dosage 1998 00:00:00 Completed [facility] Hep B, Adol or Pedi Dosage 1998 00:00:00 Completed [facility] Hep B, Adol or Pedi Dosage 1998 00:00:00 Completed [facility] Hep B, Adol or Pedi Dosage 1998 00:00:00 Completed [facility] Hep B, Adol or Pedi Dosage 1998 00:00:00 Completed [facility] Hep B, Adol or Pedi Dosage 1998 00:00:00 Completed [facility] Hep B, Adol or Pedi Dosage 1998 00:00:00 Completed [facility] Hep B, Adol or Pedi Dosage 1998 00:00:00 Completed [facility] Hep B, Adol or Pedi Dosage 1998 00:00:00 Completed [facility] Hep B, Adol or Pedi Dosage 1998 00:00:00 Completed [facility] Hep B, Adol or Pedi Dosage 1998 00:00:00 Completed [facility] Hep B, Adol or Pedi Dosage 1998 00:00:00 Completed [facility] Hep B, Adol or Pedi Dosage 1998 00:00:00 Completed [facility] Hep B, Adol or Pedi Dosage 1998 00:00:00 Completed [facility] Hep B, Adol or Pedi Dosage 1998 00:00:00 Completed [facility] Hep B, Adol or Pedi Dosage 1998 00:00:00 Completed [facility] Hep B, Adol or Pedi Dosage 1998 00:00:00 Completed [facility] Hep B, Adol or Pedi Dosage 1998 00:00:00 Completed [facility] Hep B, Adol or Pedi Dosage 1998 00:00:00 Completed [facility] Hep B, Adol or Pedi Dosage 1998 00:00:00 Completed [facility] Hep B, Adol or Pedi Dosage 1998 00:00:00 Completed [facility] Hep B, Adol or Pedi Dosage 1998 00:00:00 Completed [facility] Hep B, Adol or Pedi Dosage 1998 00:00:00 Completed [facility] Hep B, Adol or Pedi Dosage 1998 00:00:00 Completed [facility] Hep B, Adol or Pedi Dosage 1998 00:00:00 Completed [facility] Hep B, Adol or Pedi Dosage 1998 00:00:00 Completed [facility] Hep B, Adol or Pedi Dosage 1998 00:00:00 Completed [facility] Hep B, Adol or Pedi Dosage 1998 00:00:00 Completed [facility] Hep B, Adol or Pedi Dosage 1998 00:00:00 Completed [facility] Hep B, Adol or Pedi Dosage 1998 00:00:00 Completed [facility] Hep B, Adol or Pedi Dosage 1998 00:00:00 Completed [facility] Hep B, Adol or Pedi Dosage 1998 00:00:00 Completed [facility] Hep B, Adol or Pedi Dosage 1998 00:00:00 Completed [facility] Hep B, Adol or Pedi Dosage 1998 00:00:00 Completed [facility] Hep B, Adol or Pedi Dosage 1998 00:00:00 Completed [facility] Hep B, Adol or Pedi Dosage 1998 00:00:00 Completed [facility] TDAP Unknown Completed [facility] MMR Unknown Completed [facility] HPV9 Unknown Completed [facility] HPV9 Unknown Completed [facility] HPV9 Unknown Completed [facility] Influenza Virus Vaccine Quad IM 3+ YRS Unknown Completed [facility] SARS-COV-2 COVID-19 PFIZER VACCINE Unknown Completed [facility] SARS-COV-2 COVID-19 PFIZER VACCINE Unknown Completed [facility] Influenza Virus Vaccine Quad IM, Preserv and ABX Free 6 MO-64 YRS (FLUCELVAX) Unknown Completed [facility] DTaP, Unspecified Formulation Unknown Completed [facility] DTaP, Unspecified Formulation Unknown Completed [facility] DTaP, Unspecified Formulation Unknown Completed [facility] DTaP, Unspecified Formulation Unknown Completed [facility] DTaP, Unspecified Formulation Unknown Completed [facility] Influenza Virus Vaccine - Whole Unknown Completed [facility] HEPATITIS A Unknown Completed [facility] HEPATITIS A Unknown Completed [facility] Hep B, Adol or Pedi Dosage Unknown Completed [facility] Hep B, Adol or Pedi Dosage Unknown Completed [facility] Hep B, Adol or Pedi Dosage Unknown Completed [facility] HIB 4 Dose Schedule Unknown Completed [facility] HIB 4 Dose Schedule Unknown Completed [facility] HIB 4 Dose Schedule Unknown Completed [facility] HIB 4 Dose Schedule Unknown Completed [facility] HPV Unknown Completed [facility] HPV Unknown Completed [facility] Meningococcal Polysaccharide (groups A, C, Y and W-135) conjugate vaccine (MCV4P) Unknown Completed [facility] Meningococcal Polysaccharide (groups A, C, Y and W-135) conjugate vaccine (MCV4P) Unknown Completed [facility] MMR Unknown Completed [facility] MMR Unknown Completed [facility] Pneumococcal 7 Conjugate, PCV7 (Prevnar7) Unknown Completed [facility] IPV Unknown Completed [facility] IPV Unknown Completed [facility] IPV Unknown Completed [facility] IPV Unknown Completed [facility] TDAP Unknown Completed [facility] Varicella (varivax)(chicken pox) Unknown Completed [facility] Varicella (varivax)(chicken pox) Unknown Completed [facility] TDAP Unknown Completed [facility] MMR Unknown Completed [facility] HPV9 Unknown Completed [facility] HPV9 Unknown Completed [facility] HPV9 Unknown Completed [facility] Influenza Virus Vaccine Quad IM 3+ YRS Unknown Completed [facility] SARS-COV-2 COVID-19 PFIZER VACCINE Unknown Completed [facility] SARS-COV-2 COVID-19 PFIZER VACCINE Unknown Completed [facility] Influenza Virus Vaccine Quad IM, Preserv and ABX Free 6 MO-64 YRS (FLUCELVAX) Unknown Completed [facility] DTaP, Unspecified Formulation Unknown Completed [facility] DTaP, Unspecified Formulation Unknown Completed [facility] DTaP, Unspecified Formulation Unknown Completed [facility] DTaP, Unspecified Formulation Unknown Completed [facility] DTaP, Unspecified Formulation Unknown Completed [facility] Influenza Virus Vaccine - Whole Unknown Completed [facility] HEPATITIS A Unknown Completed [facility] HEPATITIS A Unknown Completed [facility] Hep B, Adol or Pedi Dosage Unknown Completed [facility] Hep B, Adol or Pedi Dosage Unknown Completed [facility] Hep B, Adol or Pedi Dosage Unknown Completed [facility] HIB 4 Dose Schedule Unknown Completed [facility] HIB 4 Dose Schedule Unknown Completed [facility] HIB 4 Dose Schedule Unknown Completed [facility] HIB 4 Dose Schedule Unknown Completed [facility] HPV Unknown Completed [facility] HPV Unknown Completed [facility] Meningococcal Polysaccharide (groups A, C, Y and W-135) conjugate vaccine (MCV4P) Unknown Completed [facility] Meningococcal Polysaccharide (groups A, C, Y and W-135) conjugate vaccine (MCV4P) Unknown Completed [facility] MMR Unknown Completed [facility] MMR Unknown Completed [facility] Pneumococcal 7 Conjugate, PCV7 (Prevnar7) Unknown Completed [facility] IPV Unknown Completed [facility] IPV Unknown Completed [facility] IPV Unknown Completed [facility] IPV Unknown Completed [facility] TDAP Unknown Completed [facility] Varicella (varivax)(chicken pox) Unknown Completed [facility] Varicella (varivax)(chicken pox) Unknown Completed [facility] TDAP Unknown Completed [facility] MMR Unknown Completed [facility] HPV9 Unknown Completed [facility] HPV9 Unknown Completed [facility] HPV9 Unknown Completed [facility] Influenza Virus Vaccine Quad IM 3+ YRS Unknown Completed [facility] SARS-COV-2 COVID-19 PFIZER VACCINE Unknown Completed [facility] SARS-COV-2 COVID-19 PFIZER VACCINE Unknown Completed [facility] DTaP, Unspecified Formulation Unknown Completed [facility] DTaP, Unspecified Formulation Unknown Completed [facility] DTaP, Unspecified Formulation Unknown Completed [facility] DTaP, Unspecified Formulation Unknown Completed [facility] DTaP, Unspecified Formulation Unknown Completed [facility] Influenza Virus Vaccine - Whole Unknown Completed [facility] HEPATITIS A Unknown Completed [facility] HEPATITIS A Unknown Completed [facility] Hep B, Adol or Pedi Dosage Unknown Completed [facility] Hep B, Adol or Pedi Dosage Unknown Completed [facility] Hep B, Adol or Pedi Dosage Unknown Completed [facility] HIB 4 Dose Schedule Unknown Completed [facility] HIB 4 Dose Schedule Unknown Completed [facility] HIB 4 Dose Schedule Unknown Completed [facility] HIB 4 Dose Schedule Unknown Completed [facility] HPV Unknown Completed [facility] HPV Unknown Completed [facility] Meningococcal Polysaccharide (groups A, C, Y and W-135) conjugate vaccine (MCV4P) Unknown Completed [facility] Meningococcal Polysaccharide (groups A, C, Y and W-135) conjugate vaccine (MCV4P) Unknown Completed [facility] MMR Unknown Completed [facility] MMR Unknown Completed [facility] Pneumococcal 7 Conjugate, PCV7 (Prevnar7) Unknown Completed [facility] IPV Unknown Completed [facility] IPV Unknown Completed [facility] IPV Unknown Completed [facility] IPV Unknown Completed [facility] TDAP Unknown Completed [facility] Varicella (varivax)(chicken pox) Unknown Completed [facility] Varicella (varivax)(chicken pox) Unknown Completed [facility] TDAP Unknown Completed [facility] MMR Unknown Completed [facility] HPV9 Unknown Completed [facility] HPV9 Unknown Completed [facility] HPV9 Unknown Completed [facility] Influenza Virus Vaccine Quad IM 3+ YRS Unknown Completed [facility] SARS-COV-2 COVID-19 PFIZER VACCINE Unknown Completed [facility] SARS-COV-2 COVID-19 PFIZER VACCINE Unknown Completed [facility] DTaP, Unspecified Formulation Unknown Completed [facility] DTaP, Unspecified Formulation Unknown Completed [facility] DTaP, Unspecified Formulation Unknown Completed [facility] DTaP, Unspecified Formulation Unknown Completed [facility] DTaP, Unspecified Formulation Unknown Completed [facility] Influenza Virus Vaccine - Whole Unknown Completed [facility] HEPATITIS A Unknown Completed [facility] HEPATITIS A Unknown Completed [facility] Hep B, Adol or Pedi Dosage Unknown Completed [facility] Hep B, Adol or Pedi Dosage Unknown Completed [facility] Hep B, Adol or Pedi Dosage Unknown Completed [facility] HIB 4 Dose Schedule Unknown Completed [facility] HIB 4 Dose Schedule Unknown Completed [facility] HIB 4 Dose Schedule Unknown Completed [facility] HIB 4 Dose Schedule Unknown Completed [facility] HPV Unknown Completed [facility] HPV Unknown Completed [facility] Meningococcal Polysaccharide (groups A, C, Y and W-135) conjugate vaccine (MCV4P) Unknown Completed [facility] Meningococcal Polysaccharide (groups A, C, Y and W-135) conjugate vaccine (MCV4P) Unknown Completed [facility] MMR Unknown Completed [facility] MMR Unknown Completed [facility] Pneumococcal 7 Conjugate, PCV7 (Prevnar7) Unknown Completed [facility] IPV Unknown Completed [facility] IPV Unknown Completed [facility] IPV Unknown Completed [facility] IPV Unknown Completed [facility] TDAP Unknown Completed [facility] Varicella (varivax)(chicken pox) Unknown Completed [facility] Varicella (varivax)(chicken pox) Unknown Completed [facility] Vital Signs Vital Name Observation Time Observation Value Comments S ource Systolic blood pressure 2022-08-29 13:00:00 108 mm[Hg] [facility] Diastolic blood pressure 2022-08-29 13:00:00 66 mm[Hg] [facility] Heart rate 2022-08-29 13:00:00 77 /[facility] 2022-08-29 13:00:00 36.06 Leigh [facility] Respiratory rate 2022-08-29 13:00:00 18 /min [facility] Oxygen saturation in Arterial blood by Pulse oximetry 2022-08-29 13:00:00 99 /min [facility] Body height 2022-08-26 19:36:00 165.1 cm [facility] Body weight 2022-08-26 19:36:00 83.519 kg [facility] BMI 2022-08-26 19:36:00 30.64 kg/m2 [facility] Systolic blood pressure 2022-08-25 18:41:00 123 mm[Hg] [facility] Diastolic blood pressure 2022-08-25 18:41:00 84 mm[Hg] [facility] Heart rate 2022-08-25 18:41:00 85 /min [facility] Body temperature 2022-08-25 18:41:00 36.5 Leigh [facility] Respiratory rate 2022-08-25 18:41:00 16 /min [facility] Body height 2022-08-25 18:41:00 165.1 cm [facility] Body weight 2022-08-25 18:41:00 83.519 kg [facility] BMI 2022-08-25 18:41:00 30.64 kg/m2 [facility] Systolic blood pressure 2022-08-20 13:19:00 125 mm[Hg] [facility] Diastolic blood pressure 2022-08-20 13:19:00 85 mm[Hg] [facility] Heart rate 2022-08-20 13:19:00 81 /min [facility] Body temperature 2022-08-20 13:19:00 36.39 Leigh [facility] Respiratory rate 2022-08-20 13:19:00 18 /min [facility] Body height 2022-08-20 13:19:00 165.1 cm [facility] Body weight 2022-08-20 13:19:00 82.158 kg [facility] BMI 2022-08-20 13:19:00 30.14 kg/m2 [facility] Systolic blood pressure 2022-08-17 20:01:00 125 mm[Hg] [facility] Diastolic blood pressure 2022-08-17 20:01:00 83 mm[Hg] [facility] Heart rate 2022-08-17 20:01:00 88 /min [facility] Body temperature 2022-08-17 20:01:00 36.28 Leigh [facility] Respiratory rate 2022-08-17 20:01:00 18 /min [facility] Body height 2022-08-17 20:01:00 165.1 cm [facility] Body weight 2022-08-17 20:01:00 83.008 kg [facility] BMI 2022-08-17 20:01:00 30.45 kg/m2 [facility] Oxygen saturation in Arterial blood by Pulse oximetry 2022-08-17 20:01:00 98 /min [facility] Systolic blood pressure 2022-08-13 14:54:00 122 mm[Hg] [facility] Diastolic blood pressure 2022-08-13 14:54:00 80 mm[Hg] [facility] Heart rate 2022-08-13 14:54:00 83 /min [facility] Body temperature 2022-08-13 14:54:00 36.22 Leigh [facility] Respiratory rate 2022-08-13 14:54:00 16 /min [facility] Body height 2022-08-13 14:54:00 165.1 cm [facility] Body weight 2022-08-13 14:54:00 81.676 kg [facility] BMI 2022-08-13 14:54:00 29.96 kg/m2 [facility] Systolic blood pressure 2022-08-10 19:31:00 129 mm[Hg] [facility] Diastolic blood pressure 2022-08-10 19:31:00 85 mm[Hg] [facility] Heart rate 2022-08-10 19:31:00 86 /min [facility] Body temperature 2022-08-10 19:31:00 36.28 Leigh [facility] Respiratory rate 2022-08-10 19:31:00 18 /min [facility] Body height 2022-08-10 19:31:00 165.1 cm [facility] Body weight 2022-08-10 19:31:00 81.874 kg [facility] BMI 2022-08-10 19:31:00 30.04 kg/m2 [facility] Systolic blood pressure 2022-08-04 19:31:00 123 mm[Hg] [facility] Diastolic blood pressure 2022-08-04 19:31:00 81 mm[Hg] [facility] Heart rate 2022-08-04 19:31:00 97 /min [facility] Body temperature 2022-08-04 19:31:00 36.56 Leigh [facility] Respiratory rate 2022-08-04 19:31:00 18 /min [facility] Body height 2022-08-04 19:31:00 165.1 cm [facility] Body weight 2022-08-04 19:31:00 81.392 kg [facility] BMI 2022-08-04 19:31:00 29.86 kg/m2 [facility] Systolic blood pressure 2022-07-31 17:53:00 115 mm[Hg] [facility] Diastolic blood pressure 2022-07-31 17:53:00 74 mm[Hg] [facility] Heart rate 2022-07-31 17:53:00 83 /min [facility] Body temperature 2022-07-31 17:53:00 36.39 Leigh [facility] Respiratory rate 2022-07-31 17:53:00 18 /min [facility] Body height 2022-07-31 17:53:00 165.1 cm [facility] Body weight 2022-07-31 17:53:00 81.557 kg [facility] BMI 2022-07-31 17:53:00 29.92 kg/m2 [facility] Systolic blood pressure 2022-07-23 14:53:00 122 mm[Hg] [facility] Diastolic blood pressure 2022-07-23 14:53:00 79 mm[Hg] [facility] Heart rate 2022-07-23 14:53:00 89 /min [facility] Body temperature 2022-07-23 14:53:00 35.94 Leigh [facility] Respiratory rate 2022-07-23 14:53:00 18 /min [facility] Body height 2022-07-23 14:53:00 165.1 cm [facility] Body weight 2022-07-23 14:53:00 79.89 kg [facility] BMI 2022-07-23 14:53:00 29.31 kg/m2 [facility] Systolic blood pressure 2022-07-20 19:11:00 139 mm[Hg] [facility] Diastolic blood pressure 2022-07-20 19:11:00 88 mm[Hg] [facility] Heart rate 2022-07-20 19:11:00 104 /min [facility] Body temperature 2022-07-20 19:05:00 36.33 Leigh [facility] Respiratory rate 2022-07-20 19:05:00 18 /min [facility] Body height 2022-07-20 19:05:00 165.1 cm [facility] Body weight 2022-07-20 19:05:00 79.975 kg [facility] BMI 2022-07-20 19:05:00 29.34 kg/m2 [facility] Systolic blood pressure 2022-07-16 14:40:00 120 mm[Hg] [facility] Diastolic blood pressure 2022-07-16 14:40:00 83 mm[Hg] [facility] Heart rate 2022-07-16 14:40:00 99 /min [facility] Body temperature 2022-07-16 14:40:00 36.11 Leigh [facility] Respiratory rate 2022-07-16 14:40:00 17 /min [facility] Body height 2022-07-16 14:40:00 165.1 cm [facility] Body weight 2022-07-16 14:40:00 79.493 kg [facility] BMI 2022-07-16 14:40:00 29.16 kg/m2 [facility] Systolic blood pressure 2022-07-15 19:45:00 119 mm[Hg] [facility] Diastolic blood pressure 2022-07-15 19:45:00 70 mm[Hg] [facility] Heart rate 2022-07-15 19:45:00 82 /min [facility] Body temperature 2022-07-15 19:45:00 36.78 Leigh [facility] Respiratory rate 2022-07-15 19:45:00 18 /min [facility] Oxygen saturation in Arterial blood by Pulse oximetry 2022-07-15 19:45:00 99 /min [facility] Body height 2022-07-15 16:51:00 165.1 cm [facility] Body weight 2022-07-15 16:51:00 80.06 kg [facility] BMI 2022-07-15 16:51:00 29.37 kg/m2 [facility] Systolic blood pressure 2022-07-10 14:01:00 129 mm[Hg] [facility] Diastolic blood pressure 2022-07-10 14:01:00 87 mm[Hg] [facility] Heart rate 2022-07-10 14:01:00 89 /min [facility] Body temperature 2022-07-10 14:01:00 36.17 Leigh [facility] Respiratory rate 2022-07-10 14:01:00 18 /min [facility] Body height 2022-07-10 14:01:00 165.1 cm [facility] Body weight 2022-07-10 14:01:00 79.946 kg [facility] BMI 2022-07-10 14:01:00 29.33 kg/m2 [facility] Systolic blood pressure 2022-07-08 14:25:00 115 mm[Hg] [facility] Diastolic blood pressure 2022-07-08 14:25:00 72 mm[Hg] [facility] Heart rate 2022-07-08 14:25:00 77 /[facility] 2022-07-08 14:25:00 36.17 Leigh [facility] Respiratory rate 2022-07-08 14:25:00 18 /min [facility] Body height 2022-07-08 14:25:00 165.1 cm [facility] weight 2022-07-08 14:25:00 77.735 kg [facility] BMI 2022-07-08 14:25:00 28.52 kg/m2 [facility] Diastolic blood pressure 2022-06-24 15:23:00 90 mm[Hg] [facility] Heart rate 2022-06-24 15:23:00 95 /min [facility] temperature 2022-06-24 15:23:00 35.67 Leigh [facility] Respiratory rate 2022-06-24 15:23:00 18 /min [facility] Body height 2022-06-24 15:23:00 165.1 [facility] weight 2022-06-24 15:23:00 78.104 kg [facility] BMI 2022-06-24 15:23:00 28.65 kg/m2 [facility] Systolic blood pressure 2022-06-24 15:23:00 124 mm[Hg] [facility] Systolic blood pressure 2022-06-10 21:11:00 128 mm[Hg] [facility] Diastolic blood pressure 2022-06-10 21:11:00 84 mm[Hg] [facility] Heart rate 2022-06-10 21:11:00 104 /min [facility] Body temperature 2022-06-10 21:11:00 35.89 Leigh [facility] Respiratory rate 2022-06-10 21:11:00 18 /min [facility] Body height 2022-06-10 21:11:00 165.1 cm [facility] Body weight 2022-06-10 21:11:00 74.844 kg [facility] BMI 2022-06-10 21:11:00 27.46 kg/m2 [facility] Systolic blood pressure 2022-06-05 18:26:00 118 mm[Hg] [facility] Diastolic blood pressure 2022-06-05 18:26:00 68 mm[Hg] [facility] Heart rate 2022-06-05 18:26:00 111 /min [facility] Body temperature 2022-06-05 18:26:00 37 Leigh [facility] Respiratory rate 2022-06-05 18:26:00 20 /min [facility] Body weight 2022-06-05 18:26:00 72.576 kg [facility] BMI 2022-06-05 18:26:00 26.63 kg/m2 [facility] Oxygen saturation in Arterial blood by Pulse oximetry 2022-06-05 18:26:00 99 /min [facility] Heart rate 2022-05-30 21:15:00 89 /min [facility] Oxygen saturation in Arterial blood by Pulse oximetry 2022-05-30 21:15:00 100 /min [facility] Systolic blood pressure 2022-05-30 19:21:00 124 mm[Hg] [facility] Diastolic blood pressure 2022-05-30 19:21:00 78 mm[Hg] [facility] Body temperature 2022-05-30 19:21:00 37.06 Leigh [facility] Respiratory rate 2022-05-30 19:21:00 18 /min [facility] Body weight 2022-05-30 19:05:00 73.483 kg [facility] BMI 2022-05-30 19:05:00 26.96 kg/m2 [facility] Systolic blood pressure 2022-05-20 12:55:00 117 mm[Hg] [facility] Diastolic blood pressure 2022-05-20 12:55:00 82 mm[Hg] [facility] Heart rate 2022-05-20 12:55:00 85 /min [facility] Body temperature 2022-05-20 12:55:00 36.39 Leigh [facility] Respiratory rate 2022-05-20 12:55:00 20 /min [facility] Body height 2022-05-20 12:55:00 165.1 cm [facility] Body weight 2022-05-20 12:55:00 73.755 kg [facility] BMI 2022-05-20 12:55:00 27.06 kg/m2 [facility] Heart rate 2022-04-21 05:30:00 76 /min [facility] Oxygen saturation in Arterial blood by Pulse oximetry 2022-04-21 05:30:00 100 /min [facility] Systolic blood pressure 2022-04-21 05:00:00 115 mm[Hg] [facility] Diastolic blood pressure 2022-04-21 05:00:00 76 mm[Hg] [facility] Body temperature 2022-04-21 05:00:00 36.61 Leigh [facility] Respiratory rate 2022-04-21 05:00:00 18 /min [facility] Body height 2022-04-21 05:00:00 165.1 cm [facility] Body weight 2022-04-21 05:00:00 72.122 kg [facility] BMI 2022-04-21 05:00:00 26.46 kg/m2 [facility] Systolic blood pressure 2022-04-16 16:47:00 108 mm[Hg] [facility] Diastolic blood pressure 2022-04-16 16:47:00 73 mm[Hg] [facility] Heart rate 2022-04-16 16:47:00 67 /min [facility] temperature 2022-04-16 16:47:00 36.89 Leigh [facility] Respiratory rate 2022-04-16 16:47:00 17 /min [facility] Body height 2022-04-16 16:47:00 165.1 cm [facility] Body weight 2022-04-16 16:47:00 72.213 kg [facility] BMI 2022-04-16 16:47:00 26.49 kg/m2 [facility] Systolic blood pressure 2022-03-19 20:31:00 114 mm[Hg] [facility] Diastolic blood pressure 2022-03-19 20:31:00 77 mm[Hg] [facility] Heart rate 2022-03-19 20:31:00 81 /min [facility] Body temperature 2022-03-19 20:31:00 36.56 Leigh [facility] Respiratory rate 2022-03-19 20:31:00 18 /min [facility] Body height 2022-03-19 20:31:00 165.1 cm [facility] Body weight 2022-03-19 20:31:00 70.035 kg [facility] BMI 2022-03-19 20:31:00 25.69 kg/m2 [facility] Systolic blood pressure 2022-02-24 20:07:00 138 mm[Hg] [facility] Diastolic blood pressure 2022-02-24 20:07:00 87 mm[Hg] [facility] Heart rate 2022-02-24 20:07:00 95 /min [facility] Body temperature 2022-02-24 20:07:00 36.72 Leigh [facility] Respiratory rate 2022-02-24 20:07:00 18 /min [facility] Body height 2022-02-24 20:07:00 165.1 cm [facility] Body weight 2022-02-24 20:07:00 68.068 kg [facility] BMI 2022-02-24 20:07:00 24.97 kg/m2 [facility] Systolic blood pressure 2022-01-17 16:46:00 128 mm[Hg] [facility] Diastolic blood pressure 2022-01-17 16:46:00 87 mm[Hg] [facility] Heart rate 2022-01-17 16:45:00 69 /min [facility] Body temperature 2022-01-17 16:45:00 36.5 Leigh [facility] Respiratory rate 2022-01-17 16:45:00 20 /min [facility] Body height 2022-01-17 16:45:00 165.1 cm [facility] Body weight 2022-01-17 16:45:00 67.405 kg [facility] BMI 2022-01-17 16:45:00 24.73 kg/m2 [facility] Oxygen saturation in Arterial blood by Pulse oximetry 2021-01-30 20:01:00 97 /min [facility] Systolic blood pressure 2021-01-30 20:01:00 132 mm[Hg] [facility] Diastolic blood pressure 2021-01-30 20:01:00 72 mm[Hg] [facility] Heart rate 2021-01-30 20:01:00 88 /min [facility] Body temperature 2021-01-30 20:01:00 37.11 Leigh [facility] Respiratory rate 2021-01-30 20:01:00 18 /min [facility] Body height 2021-01-30 20:01:00 165.1 cm [facility] Body weight 2021-01-30 20:01:00 67.217 kg [facility] BMI 2021-01-30 20:01:00 24.66 kg/m2 [facility] Systolic blood pressure 2020-02-11 21:15:00 135 mm[Hg] [facility] Diastolic blood pressure 2020-02-11 21:15:00 95 mm[Hg] [facility] Oxygen saturation in Arterial blood by Pulse oximetry 2020-02-11 21:15:00 99 /min [facility] Heart rate 2020-02-11 19:35:00 98 /min [facility] Body temperature 2020-02-11 19:35:00 37 Leigh [facility] Respiratory rate 2020-02-11 19:35:00 18 /min [facility] Body weight 2020-02-11 19:35:00 70.761 kg [facility] Systolic blood pressure 2020-02-11 21:15:00 135 mm[Hg] [facility] Diastolic blood pressure 2020-02-11 21:15:00 95 mm[Hg] [place] [facility] Oxygen saturation in Arterial blood by Pulse oximetry 2020-02-11 21:15:00 99 /min [place] [facility] Heart rate 2020-02-11 19:35:00 98 /min [facility] Body temperature 2020-02-11 19:35:00 37 Leigh [facility] Respiratory rate 2020-02-11 19:35:00 18 /min [facility] Body weight 2020-02-11 19:35:00 70.761 kg [facility] Procedures Procedure Date / Time Performed Performing Clinician Source DME/SUPPLY JUSTIFICATION 2022-09-15 05:01:00 Doc tor Unassigned, [place] [facility] CBC WITH DIFF 2022-08-28 09:39:00 Gila Berrios [facility] VENOUS CORD GAS 2022-08-28 04:27:00 Frieda Newsome [facility] CENTRAL NEURAXIAL BLOCK 2022-08-27 12:22:00 St arlyn Flynn [facility] HEPATITIS B SURFACE ANTIGEN 2022-08-26 20:23:00 Frieda Newsome [facility] HB ABO GROUPING 2022-08-26 20:23:00 Frieda Newsome [facility] RHO (D) IMMUNE GLOBULIN 2022-08-26 20:23:00 Elin Berrios [facility] SYPHILIS IGG/IGM 2022-08-26 20:23:00 Frieda Newsome [facility] NON-STRESS TEST 2022-08-26 00:10:22 Masood Akbar [facility] POCT URINALYSIS 2022-08-25 18:49:00 Julian Roland [facility] POCT URINALYSIS 2022-08-25 18:44:00 Julian Roland [facility] NON-STRESS TEST 2022-08-20 14:03:39 Masood Akbar [facility] POCT URINALYSIS 2022-08-20 13:20:00 Julian Roland [facility] NON-STRESS TEST 2022-08-17 21:16:23 Masood Akbar [facility] POCT URINALYSIS 2022-08-17 20:04:00 Julian Roland [facility] NON-STRESS TEST 2022-08-13 21:32:17 Masood Akbar [facility] POCT URINALYSIS 2022-08-13 14:56:00 Julian Roland [facility] NON-STRESS TEST 2022-08-11 02:24:06 Shruthi Malik [facility] POCT URINALYSIS 2022-08-10 19:34:00 Julian Roland [facility] NON-STRESS TEST 2022-08-05 01:41:48 Masood Akbar [facility] POCT URINALYSIS 2022-08-04 19:32:00 Julian Roland [facility] NON-STRESS TEST 2022-07-31 18:32:53 Jorge Roland [facility] POCT URINALYSIS 2022-07-31 17:56:00 Julian Roland [facility] SECOND AND THIRD TRIMESTER ULTRASOUND 2022-07-24 17:15:00 Qing Morley [facility] NON-STRESS TEST 2022-07-23 16:09:00 Masood Akbar [facility] POCT URINALYSIS 2022-07-23 14:55:00 Julian Roland [facility] NON-STRESS TEST 2022-07-20 23:55:57 Masood Akabr [facility] POCT URINALYSIS 2022-07-20 19:12:00 Julian Roland [facility] NON-STRESS TEST 2022-07-16 16:25:43 Ute Dodge [facility] POCT URINALYSIS 2022-07-16 14:42:00 Julian Roland [facility] URINALYSIS 2022-07-15 18:46:00 [facility] ONLY - WET PREP 2022-07-15 18:46:00 Adum, Monique Meza [facility] ASSIGNMENT OF BENEFITS 2022-07-15 16:49:38 Docto r Unassigned, [place] [facility] CONSENT/REFUSAL FOR DIAGNOSIS AND TREATMENT 2022-07-15 16:48:01 Doctor Unassigned, [place] [facility] NON-STRESS TEST 2022-07-10 17:18:49 Masood Akbar [facility] POCT URINALYSIS 2022-07-10 14:02:00 Julian Roland [facility] SECOND AND THIRD TRIMESTER ULTRASOUND 2022-07-09 19:22:00 Qing Morley [facility] SECOND AND THIRD TRIMESTER ULTRASOUND 2022-07-09 19:19:00 Qing Morley [facility] NON-STRESS TEST 2022-07-08 18:37:07 Masood Akbar [facility] POCT URINALYSIS 2022-07-08 14:26:00 Julian Roland [facility] HIV 1/2 AG-AB WITH REFLEX 2022-06-24 15:54:00 Yue Akbar [facility] SYPHILIS IGG/IGM 2022-06-24 15:54:00 Yue Akbar [facility] POCT URINALYSIS 2022-06-24 15:26:00 Julian Roland [facility] POCT URINALYSIS 2022-06-10 21:11:00 Julian Roland [facility] CONSENT/REFUSAL FOR DIAGNOSIS AND TREATMENT 2022-06-05 18:19:17 Doctor Unassigned, [place] [facility] DME/SUPPLY JUSTIFICATION 2022-06-04 05:01:00 Doc tor Unassigned, [place] [facility] URINALYSIS 2022-05-30 20:01:00 Harleen Miles [facility] ADC CLC OR LCC ONLY - WET PREP 2022-05-30 20:01:[address] [facility] CONSENT/REFUSAL FOR DIAGNOSIS AND TREATMENT 2022-05-30 19:07:42 Doctor Unassigned, [place] [facility] POCT URINALYSIS 2022-05-20 00:00:00 Julian Roland [facility] URINALYSIS 2022-04-21 05:14:[address] [facility] ADC CLC OR LCC ONLY - WET PREP 2022-04-21 05:14:00 Qing Morley [facility] POCT URINALYSIS W/O SPECIFIC GRAVITY 2022-04-16 16:48:00 Parvez Chung [facility] MATERNAL SERUM SCREEN 1-Q 2022-04-16 00:00:00 Qing Morley [facility] SCANNED LAB RESULTS 2022-03-20 06:01:00 Doctor Isacc evans, [place] [facility] FLU VACC ([id number]), 6 MO-64 YRS, .5ML, IM, QUAD (FLUCELVAX) 2022-03-19 23:20:50 Qing Morley [facility] POCT URINALYSIS W/O SPECIFIC GRAVITY 2022-03-19 00:00:00 Qing Morley [facility] POCT URINALYSIS 2022-02-24 20:00:00 Julian Roland [facility] POCT TEST 2022-01-17 16:39:00 Natacha Shi [facility] POCT URINALYSIS W/O SPECIFIC GRAVITY 2022-01-17 16:39:00 Pam Manzanoasha [facility] ASSIGNMENT OF BENEFITS 2022-01-17 16:30:59 Docto r Unassigned, [place] [facility] POCT MOLECULAR FLU 2021-01-30 20:13:00 Hamida Nieto [facility] POCT MOLECULAR STREP 2021-01-30 20:10:00 Helen Nieto [facility] POCT TEST 2020-02-11 20:10:00 Samia Tejada [facility] NOTICE OF PRIVACY PRACTICES 2020-02-11 19:30:19 Doctor Unassigned, [place] [facility] CONSENT/REFUSAL FOR DIAGNOSIS AND TREATMENT 2020-02-11 19:30:04 Doctor Unassigned, [place] [facility] Encounters Start Date/Time End Date/Time Encounter Type Admission Type Attending [facility] Facility Care Department Encounter ID Source 2022-04-21 00:48:13 Outpatient X [facility] [id number] [facility] 2020-12-14 13:13:53 Emergency [facility] [id number] [facility] 2022-12-03 09:30:00 2022-12-03 09:30:00 Outpatient YUE GRIMALDO [facility] [id number] [facility] 2022-10-14 00:00:00 2022-10-14 00:00:00 Telephone Yue Akbar [facility] COMMODITIES [facility] 1..840.114 350.1.13.10 4.2.7.2.[id number] [facility] 2022-09-23 07:45:00 2022-09-23 07:45:00 Outpatient YUE GRIMALDO [facility] [id number] [facility] 2022-09-15 00:00:00 2022-09-15 00:00:00 Orders Only Doctor Unassigned, [place] [facility] 1..840.114 350.1.13.10 4.2.7.2.[id number] [facility] 2022-08-26 13:38:00 2022-08-29 14:24:00 Hospital Encounter Josette Lalcarolawaldemar [facility] 1.2.840.114 350.1.13.10 4.2.7.2.[id number] [facility] 2022-08-27 07:10:00 2022-08-28 01:11:00 Anesthesia Event Anders Dash Michael [facility] 1.2.840.114 350.1.13.10 4.2.7.2.[id number] [facility] 2022-08-25 15:00:00 2022-08-25 15:00:00 Routine Visit Yue Akbar [facility] COMMODITIES [facility] 1.2.840.114 350.1.13.10 4.2.7.2.[id number] [facility] 2022-08-25 15:00:00 2022-08-25 14:19:03 Outpatient R YUE AKBAR [facility] [id number] [facility] 2022-08-25 14:30:00 2022-08-25 14:18:29 Outpatient R YUE AKBAR [facility] [id number] [facility] 2022-08-21 00:00:00 2022-08-21 00:00:00 Case Management Yue Akbar [facility] COMMODITIES [facility] 1.2.840.114 350.1.13.10 4.2.7.2.[id number] [facility] 2022-08-20 11:30:00 2022-08-20 11:38:46 Radio Sportscaster Visit 1, [facility] Room Yue Akbar [facility] COMMODITIES [facility] 1.2.840.114 350.1.13.10 4.2.7.2.[id number] [facility] 2022-08-20 08:30:00 2022-08-20 09:02:28 Outpatient R YUE AKBAR [facility] [id number] [facility] 2022-08-20 08:30:00 2022-08-20 09:02:28 Routine Visit Yue Akbar [facility] COMMODITIES [facility] 1..840.114 350.1.13.10 4.2.7.2.[id number] [facility] 2022-08-20 00:00:00 2022-08-20 00:00:00 Telephone Yue Akbar [facility] COMMODITIES [facility] CHILD [facility] 1..840.114 350.1.13.10 4.2.7.2.[id number] [facility] 2022-08-17 15:00:00 2022-08-17 15:42:27 Outpatient R YUE AKBAR [facility] [id number] [facility] 2022-08-17 15:00:00 2022-08-17 15:42:27 Routine Visit Yue Akbar [facility] COMMODITIES [facility] CHILD [facility] ..840.114 350.1.13.10 4.2.7.2.[id number] [facility] 2022-08-13 09:45:00 2022-08-13 10:40:14 Outpatient R YUE AKBAR [facility] [id number] [facility] 2022-08-13 09:45:00 2022-08-13 10:40:14 Routine Visit Yue Akbar [facility] COMMODITIES [facility] CHILD [facility] .840.114 350.1.13.10 4.2.7.2.[id number] [facility] 2022-08-12 14:00:00 2022-08-12 14:00:00 Outpatient R YUE AKBAR [facility] [id number] [facility] 2022-08-11 00:00:00 2022-08-11 00:00:00 Telephone Shruthi Malik [facility] COMMODITIES [facility] CHILD [facility] 1..840.114 350.1.13.10 4.2.7.2.[id number] [facility] 2022-08-10 14:15:00 2022-08-10 15:46:47 Outpatient SHRUTHI RECIO [facility] [id number] [facility] 2022-08-10 14:15:00 2022-08-10 15:46:47 Routine Visit Provider, Julian Lema Ariel [facility] COMMODITIES [facility] 1..840.114 350.1.13.10 4.2.7.2.[id number] [facility] 2022-08-07 08:15:00 2022-08-07 08:15:00 Outpatient YUE GRIMALDO [facility] [id number] [facility] 2022-08-06 11:30:00 2022-08-06 12:00:00 Radio Sportscaster Visit 1, [facility] Guido Jaswinder [facility] COMMODITIES [facility] 1..840.114 350.1.13.10 4.2.7.2.[id number] [facility] 2022-08-06 11:30:00 2022-08-06 11:30:00 Outpatient P JASWINDER COLEMAN JASWINDER [facility] [id number] [facility] 2022-08-04 15:00:00 2022-08-04 15:00:00 Routine Visit Yue Akbar [facility] COMMODITIES [facility] 1..840.114 350.1.13.10 4.2.7.2.[id number] [facility] 2022-08-04 15:00:00 2022-08-04 14:55:36 Outpatient YUE GRIMALDO [facility] [id number] [facility] 2022-07-31 14:45:00 2022-07-31 14:45:00 Routine Visit Emmetttinymarkel Julian Maciel [facility] COMMODITIES [facility] 1.2.840.114 350.1.13.10 4.2.7.2.[id number] [facility] 2022-07-31 11:00:00 2022-07-31 13:32:52 Outpatient P ANA ODEN [facility] [id number] [facility] 2022-07-31 11:00:00 2022-07-31 11:30:00 Radio Sportscaster Visit 1, [facility] Room Ana Oden [facility] COMMODITIES [facility] CHILD [facility] 1..840.114 350.1.13.10 4.2.7.2.[id number] [facility] 2022-07-31 00:00:00 2022-07-31 00:00:00 Telephone EmmetttinyJulian jean baptiste [facility] COMMODITIES [facility] CHILD [facility] 1.840.114 350.1.13.10 4.2.7.2.[id number] [facility] 2022-07-28 15:30:00 2022-07-28 15:30:00 Outpatient R JULIAN ROLAND [facility] [id number] [facility] 2022-07-27 09:45:00 2022-07-27 09:45:00 Outpatient R JULIAN ROLAND [facility] [id number] [facility] 2022-07-24 11:00:00 2022-07-24 12:22:23 Radio Sportscaster Visit 1, [facility] Room Esther De La Torre [facility] COMMODITIES [facility] CHILD [facility] 1..840.114 350.1.13.10 4.2.7.2.[id number] [facility] 2022-07-24 11:00:00 2022-07-24 11:00:00 Outpatient P ESTHER DE LA TORRE SANGEETA [facility] [id number] [facility] 2022-07-23 10:00:00 2022-07-23 10:36:24 [id number] 2022-07-23 10:00:00 2022-07-23 10:36:24 [facility] 1.2.840.114 350.1.13.10 4.2.7.2.[id number] [facility] 2022-07-20 16:00:00 2022-07-20 16:00:00 Routine Visit [facility]Isiah [facility] CHILD [facility] 1..840.114 350.1.13.10 4.2.7.2.[id number] [facility] 2022-07-20 16:00:00 2022-07-20 15:00:08 Outpatient R RAFFYISIAHYUE [facility] [id number] [facility] 2022-07-16 11:30:00 2022-07-16 12:36:23 Outpatient ANA CHÁVEZ [facility] [id number] [facility] 2022-07-16 11:30:00 2022-07-16 12:36:23 Radio Sportscaster Visit 1, [facility] Room Esther De La Torre Antonio F [facility] COMMODITIES [facility] 1.2.840.114 350.1.13.10 4.2.7.2.[id number] [facility] 2022-07-16 09:45:00 2022-07-16 10:37:13 Routine Visit Aleshia Dodge [facility] COMMODITIES [facility] 1.2.840.114 350.1.13.10 4.2.7.2.[id number] [facility] 2022-07-16 09:30:00 2022-07-16 09:30:00 Outpatient R [facility] [id number] [facility] 2022-07-15 11:55:00 2022-07-15 14:55:00 Outpatient X ADUM, MONIQUE [facility] [id number] [facility] 2022-07-15 11:55:00 2022-07-15 14:55:00 Emergency Adum, Monique Derrick [facility] 1.2.840.114 350.1.13.10 4.2.7.2.[id number] [facility] 2022-07-15 00:00:00 2022-07-15 00:00:00 Nurse Triage Jimmy [facility] 1.2840.114 350.1.13.10 4.2.7.2.[id number] [facility] 2022-07-14 08:30:00 2022-07-14 08:30:00 Outpatient R YUE AKBAR [facility] [id number] [facility] 2022-07-13 00:00:00 2022-07-13 00:00:00 Telephone Yue Akbar [facility] COMMODITIES [facility] CHILD [facility] 1.2840.114 350.1.13.10 4.2.7.2.[id number] [facility] 2022-07-12 00:00:00 2022-07-12 00:00:00 Patient Secure Msg Yue Akbar [facility] COMMODITIES [facility] CHILD [facility] 1.2.840.114 350.1.13.10 4.2.7.2.[id number] [facility] 2022-07-10 09:00:00 2022-07-10 09:33:46 Outpatient R BIENVENIDOChristina YUE [facility] [id number] [facility] 2022-07-10 09:00:00 2022-07-10 09:33:46 [facility] 1..114 350.1.13.10 4.2.7.2.[id number] [facility] 2022-07-09 13:00:00 2022-07-09 14:05:34 Radio Sportscaster Visit 2, [facility]114 350.1.13.10 4.2.7.2.[id number] [facility] 2022-07-09 13:00:00 2022-07-09 13:00:00 Outpatient P IGLESIA BOWDEN [facility] [id number] [facility] 2022-07-08 10:30:00 2022-07-08 10:30:00 Routine [facility] ..114 350.1.13.10 4.2.7.2.[id number] [facility] 2022-07-08 10:30:00 2022-07-08 10:05:35 Outpatient R YUE AKBAR [facility] [id number] [facility] 2022-07-08 00:00:00 2022-07-08 00:00:00 Telephone Yue Akbar [facility] COMMODITIES [facility] ..114 350.1.13.10 4.2.7.2.[id number] [facility] 2022-07-02 00:00:00 2022-07-02 00:00:00 Case Management Yue Akbar [facility] COMMODITIES [facility] 1.840.114 350.1.13.10 4.2.7.2.[id number] [facility] 2022-07-01 15:30:00 2022-07-01 16:04:22 Radio Sportscaster Visit Ultrasound, Russell-Esther Mathis [facility] COMMODITIES [facility] 1.0.114 350.1.13.10 4.2.7.2.[id number] [facility] 2022-07-01 15:30:00 2022-07-01 15:30:00 Outpatient [id number] 2022-06-24 10:15:00 2022-06-24 10:54:05 Outpatient R YUE AKBAR [facility] [id number] [facility] 2022-06-24 10:15:00 2022-06-24 10:54:05 Routine Visit Yue Akbar [facility] COMMODITIES [facility] CH[facility] 1.840.114 350.1.13.10 4.2.7.2.[id number] [facility] 2022-06-10 15:30:00 2022-06-10 16:27:05 Outpatient R YUE AKBAR [facility] [id number] [facility] 2022-06-10 15:30:00 2022-06-10 16:27:05 Routine Visit Yue Akbar [facility] COMMODITIES [facility] 1.20.114 350.1.13.10 4.2.7.2.[id number] [facility] 2022-06-09 11:00:00 2022-06-09 11:00:00 Outpatient R YUE AKBAR [facility] [id number] [facility] 2022-06-08 00:00:00 2022-06-08 00:00:00 Refelia Mccoy Anna [facility] COMMODITIES [facility] 1.0.114 350.1.13.10 4.2.7.2.[id number] [facility] 2022-06-07 00:00:00 2022-06-07 00:00:00 [facility] COMMODITIES [facility] 1..114 350.1.13.10 4.2.7.2.[id number] [facility] 2022-06-05 13:26:00 2022-06-05 13:55:00 Emergency X GINA RICARDO [facility] ERT [id number] [facility] 2022-06-05 13:26:00 2022-06-05 13:55:00 Emergency Gina Ricardo [facility] 1.114 350.1.13.10 4.2.7.2.[id number] [facility] 2022-06-04 00:00:00 2022-06-04 00:00:00 Orders Only Doctor Unassigned, [place] [facility] 1.114 350.1.13.10 4.2.7.2.[id number] [facility] 2022-06-04 00:00:00 2022-06-04 00:00:00 [facility]phone [facility] 1.114 350.1.13.10 4.2.7.2.[id number] [facility] 2022-06-03 00:00:00 2022-06-03 00:00:00 Patient Secure Msg Yue Akbar [facility] COMMODITIES [facility] 1.2.840.114 350.1.13.10 4.2.7.2.[id number] [facility] 2022-06-02 00:00:00 2022-06-02 00:00:00 Telephone [place] s Harleen [facility] 1.840.114 350.1.13.10 4.2.7.2.[id number] [facility] 2022-05-30 14:06:00 2022-05-30 16:15:00 Outpatient X [place]-ELIZABETH S, HARLEEN [place]-ELIZABETH S, HARLEEN [facility] ELIAN [id number] [facility] 2022-05-30 14:06:00 2022-05-30 16:15:00 Emergency [place] s, Harleen [facility] 1.840.114 350.1.13.10 4.2.7.2.[id number] [facility] 2022-05-20 07:45:00 2022-05-20 08:15:47 Outpatient R YUE AKBAR [facility] [id number] [facility] 2022-05-20 07:45:00 2022-05-20 08:15:47 Routine Visit Yue Akbar [facility] COMMODIT[facility] 1..840.114 350.1.13.10 4.2.7.2.[id number] [facility] 2022-05-20 00:00:00 2022-05-20 00:00:00 Letter (Out) Yue Akbar [facility] COMMODITIES [facility]ILD [facility] 1.2840.114 350.1.13.10 4.2.7.2.[id number] [facility] 2022-05-14 13:00:00 2022-05-14 13:00:00 Outpatient R QING MORLEY [facility] [id number] [facility] 2022-05-11 00:00:00 2022-05-11 00:00:00 Telephone Qing Morley [facility] 1.2840.114 350.1.13.10 4.2.7.2.[id number] [facility] 2022-05-08 00:00:00 2022-05-08 00:00:00 Telephone Qing Morley [facility] 1.2840.114 350.1.13.10 4.2.7.2.[id number] [facility] 2022-05-07 08:00:00 2022-05-07 08:52:53 Radio Sportscaster Visit Ultrasound, Jaswinder Covington [facility] COMMODITIES [facility] HE[facility] 1.20.114 350.1.13.10 4.2.7.2.[id number] [facility] 2022-05-07 08:00:00 2022-05-07 08:00:00 Outpatient JASWINDER ENCISO COREY [facility] [id number] [facility] 2022-04-20 22:48:00 2022-04-21 00:42:00 Outpatient X QING MORLEY [facility] [id number] [facility] 2022-04-20 22:48:00 2022-04-21 00:42:00 Emergency Qing Morley [facility] 1.2840.114 350.1.13.10 4.2.7.2.[id number] [facility] 2022-04-20 15:00:00 2022-04-20 15:00:00 Outpatient R [facility] [id number] [facility] 2022-04-20 00:00:00 2022-04-20 00:00:00 Telephone Qing Morley [facility] 1.0.114 350.1.13.10 4.2.7.2.[id number] [facility] 2022-04-20 00:00:00 2022-04-20 00:00:00 Patient Secure Msg Qing Morley [facility] 1..114 350.1.13.10 4.2.7.2.[id number] [facility] 2022-04-16 10:45:00 2022-04-16 11:03:05 Outpatient R PARVEZ CHUNG [facility] [id number] [facility] 2022-04-16 10:45:00 2022-04-16 11:03:05 Routine Visit Margo Parvez [facility] 1..114 350.1.13.10 4.2.7.2.[id number] [facility] 2022-04-16 00:00:00 2022-04-16 00:00:00 Telephone Parvez Chung [facility] 1..114 350.1.13.10 4.2.7.2.[id number] [facility] 2022-04-16 00:00:00 2022-04-16 00:00:00 Orders Only Qing Morley [facility] 1..114 350.1.13.10 4.2.7.2.[id number] [facility] 2022-04-15 11:00:00 2022-04-15 11:00:00 Outpatient P [facility] [id number] [facility] 2022-03-30 00:00:00 2022-03-30 00:00:00 Telephone Qing Morley [facility] BUILDING 1.2.840.114 350.1.13.10 4.2.7.2.[id number] [facility] 2022-03-30 00:00:00 2022-03-30 00:00:00 Telephone Qing Morley [facility] BUILDING 1.2.840.114 350.1.13.10 4.2.7.2.[id number] [facility] 2022-03-24 12:45:00 2022-03-24 12:45:00 Outpatient R JULIAN ROLAND [facility] [id number] [facility] 2022-03-20 11:00:00 2022-03-20 11:15:00 Radio Sportscaster Visit 2[facility] 1.2.840.114 350.1.13.10 4.2.7.2.[id number] [facility] 2022-03-20 11:00:00 2022-03-20 11:00:00 Outpatient R QING MORLEY [facility] [id number] [facility] 2022-03-20 00:00:00 2022-03-20 00:00:00 Orders Only Doctor Unassigned, [place] [facility] 1.2840.114 350.1.13.10 4.2.7.2.[id number] [facility] 2022-03-19 14:00:00 2022-03-19 15:23:42 Outpatient R PEYMAN QIGN [facility] [id number] [facility] 2022-03-19 14:00:00 2022-03-19 15:23:42 Initial Visit Qing Morley [facility] BUILDING 1.2840.114 350.1.13.10 4.2.7.2.[id number] [facility] 2022-03-16 00:00:00 2022-03-16 00:00:00 Patient Secure Msg Qing Morley [facility] 1.2840.114 350.1.13.10 4.2.7.2.[id number] [facility] 2022-03-04 10:00:00 2022-03-04 10:00:00 Outpatient R QING MOLREY [facility] [id number] [facility] 2022-02-26 00:00:00 2022-02-26 00:00:00 Telephone Julian Roland [facility] COMMODITIES [facility] 1.840.114 350.1.13.10 4.2.7.2.[id number] [facility] 2022-02-26 00:00:00 2022-02-26 00:00:00 Patient Secure Msg Julian Roland [facility] COMMODITIES [facility] CHILD [facility] 1.2840.114 350.1.13.10 4.2.7.2.[id number] [facility] 2022-02-24 14:00:00 2022-02-24 14:50:28 Outpatient R JULIAN ROLAND [facility] [id number] [facility] 2022-02-24 14:00:00 2022-02-24 14:50:28 Routine Visit Julian Roland [facility] COMMODITIES [facility]ILD [facility] 1.2840.114 350.1.13.10 4.2.7.2.[id number] [facility] 2022-02-16 10:30:00 2022-02-16 10:30:00 Outpatient R JULIAN ROLAND [facility] [id number] [facility] 2022-01-31 00:00:00 2022-01-31 00:00:00 Nurse Triage Rach Oropeza [facility] 1.840.114 350.1.13.10 4.2.7.2.[id number] [facility] 2022-01-29 00:00:00 2022-01-29 00:00:00 Telephone Julian Roland [facility] COMMODITIES [facility] 1.840.114 350.1.13.10 4.2.7.2.[id number] [facility] 2022-01-29 00:00:00 2022-01-29 00:00:00 Patient Secure Anna Gonzalez [facility] .0.114 350.1.13.10 4.2.7.2.[id number] [facility] 2022-01-19 00:00:00 2022-01-19 00:00:00 Patient Secure Julian Espino [facility] COMMODITIES [facility] .84.114 350.1.13.10 4.2.7.2.[id number] [facility] 2022-01-17 10:30:00 2022-01-17 11:46:56 Outpatient ANNA ALEXANDER [facility] [id number] [facility] 2022-01-17 10:30:00 2022-01-17 11:46:56 Initial Visit Provider, Anna Rasheed [facility] COMMODITIES [facility] 1.840.114 350.1.13.10 4.2.7.2.[id number] [facility] 2022-01-17 00:00:00 2022-01-17 00:00:00 Orders Only Doctor Unassigned, [place] [facility] 1.2840.114 350.1.13.10 4.2.7.2.[id number] [facility] 2021-02-01 00:00:00 2021-02-01 00:00:00 Telephone [facility] 1.840.114 350.1.13.10 4.2.7.2.[id number] [facility] 2021-01-31 00:00:00 2021-01-31 00:00:00 Telephone Shaniqua Kwong [facility] 1.840.114 350.1.13.10 4.2.7.2.[id number] [facility] 2021-01-30 14:00:00 2021-01-30 14:30:12 Outpatient R HAMIDA NIETO [facility] [id number] [facility] 2021-01-30 14:00:00 2021-01-30 14:20:00 Urgent Care [facility] 1.2840.114 350.1.13.10 4.2.7.2.[id number] [facility] 2020-07-26 15:00:00 2020-07-26 15:00:00 Outpatient R QING MORLEY [facility] [id number] [facility] 2020-07-24 00:00:00 2020-07-24 00:00:00 Telephone Qing Morley [facility] Building 1.2.840.114 350.1.13.10 4.2.7.2.686 [id number] 2020-07-24 00:00:00 2020-07-24 00:00:[address] [facility] 1.2.840.114 350.1.13.10 4.2.7.2.[id number] [facility] 2020-02-11 13:37:00 2020-02-11 15:17:00 Emergency Samia Tejada [facility] 1.2.840.114 350.1.13.10 4.2.7.2.[id number] [facility] 2020-02-11 13:37:00 2020-02-11 15:17:00 Emergency Samia Tejada [facility] 1.2.840.114 350.1.13.10 4.2.7.2.686 [id number] 2020-02-11 00:00:00 2020-02-11 00:00:00 Orders Only Doctor Unassigned, [place] [facility] 1.2.840.114 350.1.13.10 4.2.7.2.[id number] [facility] 2020-02-11 00:00:00 2020-02-11 00:00:00 Orders Only Doctor Unassigned, [place] [facility] 1.2.840.114 350.1.13.10 4.2.7.2.686 [id number] Results Test Description Test Time Test Comments Results Result Co mments Source [facility] IMMUNE [id number] 05:55:59* Test Item Value Reference Range Interpretation Comme nts RHIG CANDIDATE? (test code = 5188) No- see comment Patient is not a candidate for RhIg- Patient is Rh Positive.Performed at [facility] Laboratory Services - [facility] Blood [address] [place] [address] 604[address]Totd Free: [phone] No. [id number] [facility] Hospital[facility] Cord [id number] 04:37:25* Test Item Value Reference Range Interpretation Comme nts BASE EXCESS, CORD (test code = 8270116027) -9.1 mEq/L QUES AC PH, CORD (BEAKER) (test code = 7320039317) 7.21 7.18-7.38 PC02, CORD (test code = 9921482096) 48 See_Comment [Automated messa ge] The system which generated this result transmitted reference range: 32 - 66 mmHg. The reference range was not used to interpret this result as normal/abnormal. PO2, CORD (test code = 1952561303) 16 See_Comment [Automated messa ge] The system which generated this result transmitted reference range: 10 - 30 mmHg. The reference range was not used to interpret this result as normal/abnormal. BICARBONATE, CORD (test code = 8882925738) 19 See_Comment [Automated messa ge] The system which generated this result transmitted reference range: 17 - 27 mEq/L. The reference range was not used to interpret this result as normal/abnormal. [facility] Cord [id number] 04:37:15* Test Item Value Reference Range Interpretation Comme nts VENOUS BASE EXCESS, CORD (test code = 9653196908) -9.4 mEq/L VENOUS PH, CORD (test code = 4577646459) 7.28 7.25-7.45 VENOUS PC02, CORD (test code = 1730076154) 36 See_Comment [Automated messa ge] The system which generated this result transmitted reference range: 27 - 49 mmHg. The reference range was not used to interpret this result as normal/abnormal. VENOUS PO2, CORD (test code = 6604377378) 26 See_Comment [Automated me ssage] The system which generated this result transmitted reference range: 17 - 41 mmHg. The reference range was not used to interpret this result as normal/abnormal. VENOUS BICARBONATE, CORD (test code = 8181465661) 16 See_Comment [Automated messa ge] The system which generated this result transmitted reference range: 12 - 29 mEq/L. The reference range was not used to interpret this result as normal/abnormal. [facility] ONLY - SYPHILIS [id number] 14:35:45* Test Item Value Reference Range Interpretation Comme nts Syphilis IgG/IgM (test code = 18387-5) Non-reactive Non-reactive IGNACIA (test code = IGNACIA) Non-reactive - No serologic evidence of T. pallidum infection. Cannot exclude incubating or early syphilis. Submit a second specimen in 2-4 weeks if syphilis is clinically suspected. Equivocal - Further testing to follow. Reactive - Further testing to follow. Lab Interpretation (test code = 83879-3) Normal [facility] Hospital[facility]atitis B Surface [id number] 21:44:14 * Test Item Value Reference Range Interpretation Comme nts HBsAg Semi-Quantitative (lilibeth t code = 5195-3) 0.04 Negative [facility] HospitalType and Screen - ONCE [id number] 20:36:00 * Test Item Value Reference Range Interpretation Comme nts ABO & RH (test code = 20) O POSITIVE IAT (test code = 1185) Negative [facility] W SPECIFIC [id number] 18:49:00* Test Item Value Reference Range Interpretation Comme nts POCT U SP GRAV (test code = 3255) . 1.005-1.025 POCT PH U (test code = 3254) . 5-8 POCT U LEUK EST (test code = 3263) . Negative - N egative POCT U NIT (test code = 3262) . Negative - Negati ve POCT U PROT (test code = 3259) . Negative - Negat giovanny POCT U GLU (test code = 3256) . Negative - Negati ve POCT U KETONE (test code = 3258) . Negative - Neg ative POCT U UROBILI (test code = 3260) . 0.2-1 POCT U BILI (test code = 3261) . Negative - Negat giovanny POCT U BLD (test code = 3257) . Negative - Negati ve POCT U COLOR (test code = 3266) . POCT U APPEAR (test code = 3267) [facility] W SPECIFIC [id number] 18:44:00* Test Item Value Reference Range Interpretation Comme nts POCT U SP GRAV (test code = 3255) . 1.005-1.025 POCT PH U (test code = 3254) 6 mg/dl 5-8 POCT U LEUK EST (test code = 3263) Trace Negative - Negative POCT U NIT (test code = 3262) Neg Negative - Negati ve POCT U PROT (test code = 3259) Trace Negative - Negat giovanny POCT U GLU (test code = 3256) Neg Negative - Negati ve POCT U KETONE (test code = 3258) None Negative - Neg ative POCT U UROBILI (test code = 3260) . 0.2-1 POCT U BILI (test code = 3261) . Negative - Negat giovanny POCT U BLD (test code = 3257) Trace Negative - Negati ve POCT U COLOR (test code = 3266) POCT U APPEAR (test code = 3267) [facility] URINALYSIS W SPECIFIC [id number] 13:20:00* Test Item Value Reference Range Interpretation Comme nts POCT U SP GRAV (test code = 3255) . 1.005-1.025 A POCT PH U (test code = 3254) 6 mg/dl 5-8 POCT U LEUK EST (test code = 3263) Trace Negative - Negative POCT U NIT (test code = 3262) Neg Negative - Negati ve POCT U PROT (test code = 3259) Trace Negative - Negat giovanny POCT U GLU (test code = 3256) Neg Negative - Negati ve POCT U KETONE (test code = 3258) None Negative - Neg ative POCT U UROBILI (test code = 3260) . 0.2-1 POCT U BILI (test code = 3261) . Negative - Negat giovanny POCT U BLD (test code = 3257) Trace Negative - Negati ve POCT U COLOR (test code = 3266) . POCT U APPEAR (test code = 3267) . Lab Interpretation (test cod e = 99901-8) Abnormal [facility] URINALYSIS W SPECIFIC [id number] 13:20:00* Test Item Value Reference Range Interpretation Comme nts POCT U SP GRAV (test code = 3255) . 1.005-1.025 A POCT PH U (test code = 3254) 6 mg/dl 5-8 POCT U LEUK EST (test code = 3263) Trace Negative - Negative POCT U NIT (test code = 3262) Neg Negative - Negati ve POCT U PROT (test code = 3259) Trace Negative - Negat giovanny POCT U GLU (test code = 3256) Neg Negative - Negati ve POCT U KETONE (test code = 3258) None Negative - Neg ative POCT U UROBILI (test code = 3260) . 0.2-1 POCT U BILI (test code = 3261) . Negative - Negat giovanny POCT U BLD (test code = 3257) Trace Negative - Negati ve POCT U COLOR (test code = 3266) . POCT U APPEAR (test code = 3267) . Lab Interpretation (test cod e = 69522-7) Abnormal [facility] URINALYSIS W SPECIFIC [id number] 20:05:00* Test Item Value Reference Range Interpretation Comme nts POCT U SP GRAV (test code = 3255) . 1.005-1.025 POCT PH U (test code = 3254) . 5-8 POCT U LEUK EST (test code = 3263) . Negative - Negative POCT U NIT (test code = 3262) . Negative - Negati ve POCT U PROT (test code = 3259) negative Negative - Negat giovanny POCT U GLU (test code = 3256) negative Negative - Negati ve POCT U KETONE (test code = 3258) . Negative - Neg ative POCT U UROBILI (test code = 3260) . 0.2-1 POCT U BILI (test code = 3261) . Negative - Negat giovanny POCT U BLD (test code = 3257) . Negative - Negati ve POCT U COLOR (test code = 3266) POCT U APPEAR (test code = 3267) [facility] URINALYSIS W SPECIFIC [id number] 14:56:00* Test Item Value Reference Range Interpretation Comme nts POCT U SP GRAV (test code = 3255) . 1.005-1.025 A POCT PH U (test code = 3254) 6 mg/dl 5-8 POCT U LEUK EST (test code = 3263) Trace Negative - Negative POCT U NIT (test code = 3262) Neg Negative - Negati ve POCT U PROT (test code = 3259) Trace Negative - Negat giovanny POCT U GLU (test code = 3256) Neg Negative - Negati ve POCT U KETONE (test code = 3258) None Negative - Neg ative POCT U UROBILI (test code = 3260) . 0.2-1 POCT U BILI (test code = 3261) . Negative - Negat giovanny POCT U BLD (test code = 3257) Trace Negative - Negati ve POCT U COLOR (test code = 3266) . POCT U APPEAR (test code = 3267) . Lab Interpretation (test cod e = 01533-2) Abnormal [facility] URINALYSIS W SPECIFIC [id number] 14:56:00* Test Item Value Reference Range Interpretation Comme nts POCT U SP GRAV (test code = 3255) . 1.005-1.025 A POCT PH U (test code = 3254) 6 mg/dl 5-8 POCT U LEUK EST (test code = 3263) Trace Negative - Negative POCT U NIT (test code = 3262) Neg Negative - Negati ve POCT U PROT (test code = 3259) Trace Negative - Negat giovanny POCT U GLU (test code = 3256) Neg Negative - Negati ve POCT U KETONE (test code = 3258) None Negative - Neg ative POCT U UROBILI (test code = 3260) . 0.2-1 POCT U BILI (test code = 3261) . Negative - Negat giovanny POCT U BLD (test code = 3257) Trace Negative - Negati ve POCT U COLOR (test code = 3266) . POCT U APPEAR (test code = 3267) . Lab Interpretation (test cod e = 42861-4) Abnormal [facility] URINALYSIS W SPECIFIC [id number] 19:34:00* Test Item Value Reference Range Interpretation Comme nts POCT U SP GRAV (test code = 3255) . 1.005-1.025 POCT PH U (test code = 3254) 7 mg/dl 5-8 POCT U LEUK EST (test code = 3263) Trace Negative - Negative POCT U NIT (test code = 3262) Neg Negative - Negati ve POCT U PROT (test code = 3259) Trace Negative - Negat giovanny POCT U GLU (test code = 3256) Neg Negative - Negati ve POCT U KETONE (test code = 3258) None Negative - Neg ative POCT U UROBILI (test code = 3260) . 0.2-1 POCT U BILI (test code = 3261) . Negative - Negat giovanny POCT U BLD (test code = 3257) Trace Negative - Negati ve POCT U COLOR (test code = 3266) POCT U APPEAR (test code = 3267) [facility] URINALYSIS W SPECIFIC [id number] 19:32:00* Test Item Value Reference Range Interpretation Comme nts POCT U SP GRAV (test code = 3255) . 1.005-1.025 A POCT PH U (test code = 3254) 6 mg/dl 5-8 POCT U LEUK EST (test code = 3263) Trace Negative - Negative POCT U NIT (test code = 3262) Neg Negative - Negati ve POCT U PROT (test code = 3259) Trace Negative - Negat giovanny POCT U GLU (test code = 3256) Trace Negative - Negati ve POCT U KETONE (test code = 3258) None Negative - Neg ative POCT U UROBILI (test code = 3260) . 0.2-1 POCT U BILI (test code = 3261) . Negative - Negat giovanny POCT U BLD (test code = 3257) Trace Negative - Negati ve POCT U COLOR (test code = 3266) . POCT U APPEAR (test code = 3267) . Lab Interpretation (test cod e = 42659-3) Abnormal [facility] URINALYSIS W SPECIFIC [id number] 17:56:00* Test Item Value Reference Range Interpretation Comme nts POCT U SP GRAV (test code = 3255) . 1.005-1.025 POCT PH U (test code = 3254) . 5-8 POCT U LEUK EST (test code = 3263) . Negative - Negative POCT U NIT (test code = 3262) . Negative - Negati ve POCT U PROT (test code = 3259) trace Negative - Negat giovanny POCT U GLU (test code = 3256) negative Negative - Negati ve POCT U KETONE (test code = 3258) . Negative - Neg ative POCT U UROBILI (test code = 3260) . 0.2-1 POCT U BILI (test code = 3261) . Negative - Negat giovanny POCT U BLD (test code = 3257) . Negative - Negati ve POCT U COLOR (test code = 3266) POCT U APPEAR (test code = 3267) [facility] URINALYSIS W SPECIFIC [id number] 14:55:00* Test Item Value Reference Range Interpretation Comme nts POCT U SP GRAV (test code = 3255) . 1.005-1.025 POCT PH U (test code = 3254) 7 mg/dl 5-8 POCT U LEUK EST (test code = 3263) 1+ Negative - Negative POCT U NIT (test code = 3262) Neg Negative - Negati ve POCT U PROT (test code = 3259) Trace Negative - Negat giovanny POCT U GLU (test code = 3256) Neg Negative - Negati ve POCT U KETONE (test code = 3258) None Negative - Neg ative POCT U UROBILI (test code = 3260) . 0.2-1 POCT U BILI (test code = 3261) . Negative - Negat giovanny POCT U BLD (test code = 3257) Trace Negative - Negati ve POCT U COLOR (test code = 3266) . POCT U APPEAR (test code = 3267) [facility] URINALYSIS W SPECIFIC [id number] 19:12:00* Test Item Value Reference Range Interpretation Comme nts POCT U SP GRAV (test code = 3255) . 1.005-1.025 POCT PH U (test code = 3254) 8 mg/dl 5-8 POCT U LEUK EST (test code = 3263) Trace Negative - Negative POCT U NIT (test code = 3262) Neg Negative - Negati ve POCT U PROT (test code = 3259) Trace Negative - Negat giovanny POCT U GLU (test code = 3256) Neg Negative - Negati ve POCT U KETONE (test code = 3258) None Negative - Neg ative POCT U UROBILI (test code = 3260) . 0.2-1 POCT U BILI (test code = 3261) . Negative - Negat giovanny POCT U BLD (test code = 3257) Trace Negative - Negati ve POCT U COLOR (test code = 3266) . POCT U APPEAR (test code = 3267) . [facility] URINALYSIS W SPECIFIC [id number] 19:12:00* Test Item Value Reference Range Interpretation Comme nts POCT U SP GRAV (test code = 3255) . 1.005-1.025 POCT PH U (test code = 3254) 8 mg/dl 5-8 POCT U LEUK EST (test code = 3263) Trace Negative - Negative POCT U NIT (test code = 3262) Neg Negative - Negati ve POCT U PROT (test code = 3259) Trace Negative - Negat giovanny POCT U GLU (test code = 3256) Neg Negative - Negati ve POCT U KETONE (test code = 3258) None Negative - Neg ative POCT U UROBILI (test code = 3260) . 0.2-1 POCT U BILI (test code = 3261) . Negative - Negat giovanny POCT U BLD (test code = 3257) Trace Negative - Negati ve POCT U COLOR (test code = 3266) . POCT U APPEAR (test code = 3267) . [facility] URINALYSIS W SPECIFIC [id number] 14:42:00* Test Item Value Reference Range Interpretation Comme nts POCT U SP GRAV (test code = 3255) n/a 1.005-1.025 POCT PH U (test code = 3254) 7 mg/dl 5-8 POCT U LEUK EST (test code = 3263) neg Negative - Negative POCT U NIT (test code = 3262) neg Negative - Negati ve POCT U PROT (test code = 3259) neg Negative - Negat giovanny POCT U GLU (test code = 3256) neg Negative - Negati ve POCT U KETONE (test code = 3258) neg Negative - Neg ative POCT U UROBILI (test code = 3260) n/a 0.2-1 POCT U BILI (test code = 3261) n/a Negative - Negat giovanny POCT U BLD (test code = 3257) neg Negative - Negati ve POCT U COLOR (test code = 3266) yellow POCT U APPEAR (test code = 3267) clear [facility] URINALYSIS W SPECIFIC [id number] 14:02:00* Test Item Value Reference Range Interpretation Comme nts POCT U SP GRAV (test code = 3255) .. 1.005-1.025 POCT PH U (test code = 3254) 6 mg/dl 5-8 POCT U LEUK EST (test code = 3263) Trace Negative - Negative POCT U NIT (test code = 3262) Neg Negative - Negati ve POCT U PROT (test code = 3259) Trace Negative - Negat giovanny POCT U GLU (test code = 3256) Neg Negative - Negati ve POCT U KETONE (test code = 3258) None Negative - Neg ative POCT U UROBILI (test code = 3260) . 0.2-1 POCT U BILI (test code = 3261) . Negative - Negat giovanny POCT U BLD (test code = 3257) Trace Negative - Negati ve POCT U COLOR (test code = 3266) . POCT U APPEAR (test code = 3267) .. [facility] URINALYSIS W SPECIFIC [id number] 14:27:00* Test Item Value Reference Range Interpretation Comme nts POCT U SP GRAV (test code = 3255) . 1.005-1.025 POCT PH U (test code = 3254) 6 mg/dl 5-8 POCT U LEUK EST (test code = 3263) Trace Negative - Negative POCT U NIT (test code = 3262) Neg Negative - Negati ve POCT U PROT (test code = 3259) Trace Negative - Negat giovanny POCT U GLU (test code = 3256) Neg Negative - Negati ve POCT U KETONE (test code = 3258) None Negative - Neg ative POCT U UROBILI (test code = 3260) . 0.2-1 POCT U BILI (test code = 3261) . Negative - Negat giovanny POCT U BLD (test code = 3257) Trace Negative - Negati ve POCT U COLOR (test code = 3266) POCT U APPEAR (test code = 3267) [facility] [id number] 15:23:03* Test Item Value Reference Range Interpretation Comme nts Syphilis IgG/IgM (test code = 43226-1) Non-reactive Non-reactive IGNACIA (test code = IGNACIA) Non-reactive - No serologic evidence of T. pallidum infection. Cannot exclude incubating or early syphilis. Submit a second specimen in 2-4 weeks if syphilis is clinically suspected. Equivocal - Further testing to follow. Reactive - Further testing to follow. Lab Interpretation (test code = 59235-6) [facility]-AB WITH [id number] 05:34:40* Test Item Value Reference Range Interpretation Comme nts HIV Semi-quantitative (test code = 01961-1) 0.07 Negative IGNACIA (test code = IGNACIA) Non-reactive for HIV-1 antigen and HIV-1/HIV-2 antibodies. ?No laboratory evidence of HIV infection. ?Repeat in 2-4 weeks if acute HIV infection is suspected. [facility]IFIC [id number] 15:26:00* Test Item Value Reference Range Interpretation Comme nts POCT U SP GRAV (test code = 3255) . 1.005-1.025 POCT PH U (test code = 3254) 6 mg/dl 5-8 POCT U LEUK EST (test code = 3263) Trace Negative - Negative POCT U NIT (test code = 3262) Neg Negative - Negati ve POCT U PROT (test code = 3259) Trace Negative - Negat giovanny POCT U GLU (test code = 3256) Neg Negative - Negati ve POCT U KETONE (test code = 3258) None Negative - Neg ative POCT U UROBILI (test code = 3260) . 0.2-1 POCT U BILI (test code = 3261) . Negative - Negat giovanny POCT U BLD (test code = 3257) Trace Negative - Negati ve POCT U COLOR (test code = 3266) POCT U APPEAR (test code = 3267) [facility] [id number] 21:11:00* Test Item Value Reference Range Interpretation Comme nts POCT U SP GRAV (test code = 3255) . 1.005-1.025 POCT PH U (test code = 3254) 6 mg/dl 5-8 POCT U LEUK EST (test code = 3263) Trace Negative - Negative POCT U NIT (test code = 3262) Neg Negative - Negati ve POCT U PROT (test code = 3259) Trace Negative - Negat giovanny POCT U GLU (test code = 3256) Neg Negative - Negati ve POCT U KETONE (test code = 3258) None Negative - Neg ative POCT U UROBILI (test code = 3260) . 0.2-1 POCT U BILI (test code = 3261) . Negative - Negat giovanny POCT U BLD (test code = 3257) Trace Negative - Negati ve POCT U COLOR (test code = 3266) . POCT U APPEAR (test code = 3267) [facility] URINALYSIS W SPECIFIC [id number] 12:59:00* Test Item Value Reference Range Interpretation Comme nts POCT U SP GRAV (test code = 3255) . 1.005-1.025 POCT PH U (test code = 3254) . 5-8 POCT U LEUK EST (test code = 3263) . Negative - Negative POCT U NIT (test code = 3262) . Negative - Negati ve POCT U PROT (test code = 3259) trace Negative - Negat giovanny POCT U GLU (test code = 3256) negative Negative - Negati ve POCT U KETONE (test code = 3258) . Negative - Neg ative POCT U UROBILI (test code = 3260) . 0.2-1 POCT U BILI (test code = 3261) . Negative - Negat giovanny POCT U BLD (test code = 3257) . Negative - Negati ve POCT U COLOR (test code = 3266) . POCT U APPEAR (test code = 3267) . [facility] [id number] 10:00:00* Test Item Value Reference Range Interpretation Comme nts INTERPRETATION:-Q (test code = 68972-5) SEE NOTE Screen negative for open NTD. MSAFP RISK OPEN NTD-Q (test code = 42865-3) <1 IN 5000 $MSAFP-Q (test code = 1834-1) 44.2 ng/mL ADJ MULTIPLE OF MEDIAN-Q (test code = 16583-6) 0.74 -Q (test code = 8251-1) See Below This is a screen ing test, not a diagnostic test. Thisrisk assessment report is based in part on demographicdata provided by the ordering physician. Please notifythe laboratory promptly if any data are incorrect. Forassistance with recalculations, please call your [employer] laboratory. For assistance withinterpretation of these results, please contact [facility] genetic counselor or [phone](). Interpretive CutoffsScreen Positive for Open NTD: > or = 2.50 adjusted MOM ?> or = 1.90 adjusted MOM for ?insulin-dependent diabetics ?> or = 4.00 adjusted MOM for ?twins ?> or = 3.50 adjusted MOM for ?twins insulin-dependent ?diabetics ?> or = 4.50 adjusted MOM for ?tripletsFor additional information, please refer [email or web address] [email or web address](This link is being provided for informational/education al purposes only.) GESTATIONAL AGE-Q (test code = 58039-1) 20.1 weeks MATERNAL WEIGHT-Q (test code = 3142-7) 159 lbs EST'D DATE OF DELIVERY-Q (test code = 10096-8) 09/02/2022 [place] DETERMINED BY-Q (test code = 98604-2) LMP MOTHER'S ETHNIC ORIGIN-Q (test code = 18663-1) NUMBER OF FETUSES-Q (test code = 60284-2) 1 INSULIN-DEPEND DIABETIC-Q (test code = 88811-6) NO REPEAT SPECIMEN-Q (test code = 71240-2) NO HX OF NEURAL TUBE DEFECTS-Q (test code = 53526-6) NO PREV DOWN SYND-Q (test code = 68146-3) NO DONOR EGG-Q (test code = 64142-9) NO DONOR AGE: EGG RETRIEVAL-Q (test code = 43676-7) NOT GIVEN IGNACIA (test code = IGNACIA) PERFORMED BY [facility]; [address] [id number]; MULUGETA KINGSTON MD [facility] URINALYSIS W/O SPECIFIC [id number] 16:48:00* Test Item Value Reference Range Interpretation Comme nts POCT PH U (test code = 3254) n/a 5-8 POCT U LEUK EST (test code = 3263) n/a Negative - Negative POCT U NIT (test code = 3262) n/a Negative - Negati ve POCT U PROT (test code = 3259) negative Negative - Negat giovanny POCT U GLU (test code = 3256) negative Negative - Negati ve POCT U KETONE (test code = 3258) n/a Negative - Neg ative POCT U BLD (test code = 3257) n/a Negative - Negati ve [facility] URINALYSIS W/O SPECIFIC [id number] 20:31:00* Test Item Value Reference Range Interpretation Comme nts POCT PH U (test code = 3254) 5 mg/dl 5-8 POCT U LEUK EST (test code = 3263) negative Negative - Negative POCT U NIT (test code = 3262) negative Negative - Negati ve POCT U PROT (test code = 3259) negative Negative - Negat giovanny POCT U GLU (test code = 3256) negative Negative - Negati ve POCT U KETONE (test code = 3258) negative Negative - Neg ative POCT U BLD (test code = 3257) negative Negative - Negati ve [facility] URINALYSIS W SPECIFIC [id number] 20:01:00* Test Item Value Reference Range Interpretation Comme nts POCT U SP GRAV (test code = 3255) . 1.005-1.025 POCT PH U (test code = 3254) . 5-8 POCT U LEUK EST (test code = 3263) . Negative - N egative POCT U NIT (test code = 3262) . Negative - Negati ve POCT U PROT (test code = 3259) 1+ Negative - Negat giovanny POCT U GLU (test code = 3256) Neg Negative - Negati ve POCT U KETONE (test code = 3258) . Negative - Neg ative POCT U UROBILI (test code = 3260) . 0.2-1 POCT U BILI (test code = 3261) . Negative - Negat giovanny POCT U BLD (test code = 3257) . Negative - Negati ve POCT U COLOR (test code = 3266) . POCT U APPEAR (test code = 3267) . [facility] URINALYSIS W SPECIFIC [id number] 20:01:00* Test Item Value Reference Range Interpretation Comme nts POCT U SP GRAV (test code = 3255) . 1.005-1.025 POCT PH U (test code = 3254) . 5-8 POCT U LEUK EST (test code = 3263) . Negative - N egative POCT U NIT (test code = 3262) . Negative - Negati ve POCT U PROT (test code = 3259) 1+ Negative - Negat giovanny POCT U GLU (test code = 3256) Neg Negative - Negati ve POCT U KETONE (test code = 3258) . Negative - Neg ative POCT U UROBILI (test code = 3260) . 0.2-1 POCT U BILI (test code = 3261) . Negative - Negat giovanny POCT U BLD (test code = 3257) . Negative - Negati ve POCT U COLOR (test code = 3266) . POCT U APPEAR (test code = 3267) . [facility] [id number] 16:39:00* Test Item Value Reference Range Interpretation Comme nts POCT PREG (test code = 1605) Positive On board controls acceptable with C Line (test code = 3574) Yes POCT PREG LOT # (test code = 3575) POCT PREG TEST DATE ( test code = 3576) [facility] URINALYSIS W/O SPECIFIC [id number] 16:39:00* Test Item Value Reference Range Interpretation Comme nts POCT PH U (test code = 3254) 7 mg/dl 5-8 POCT U LEUK EST (test code = 3263) negative Negative - Negative POCT U NIT (test code = 3262) negative Negative - Negati ve POCT U PROT (test code = 3259) trace Negative - Negat giovanny POCT U GLU (test code = 3256) negative Negative - Negati ve POCT U KETONE (test code = 3258) negative Negative - Neg ative POCT U BLD (test code = 3257) negative Negative - Negati ve [facility] [id number] 16:39:00* Test Item Value Reference Range Interpretation Comme nts POCT PREG (test code = 1605) Positive On board controls acceptable with C Line (test code = 3574) Yes POCT PREG LOT # (test code = 3575) POCT PREG TEST DATE ( test code = 3576) [facility] URINALYSIS W/O SPECIFIC [id number] 16:39:00* Test Item Value Reference Range Interpretation Comme nts POCT PH U (test code = 3254) 7 mg/dl 5-8 POCT U LEUK EST (test code = 3263) negative Negative - Negative POCT U NIT (test code = 3262) negative Negative - Negati ve POCT U PROT (test code = 3259) trace Negative - Negat giovanny POCT U GLU (test code = 3256) negative Negative - Negati ve POCT U KETONE (test code = 3258) negative Negative - Neg ative POCT U BLD (test code = 3257) negative Negative - Negati ve [facility] [id number] 16:39:00* Test Item Value Reference Range Interpretation Comme nts POCT PREG (test code = 1605) Positive On board controls acceptable with C Line (test code = 3574) Yes POCT PREG LOT # (test code = 3575) POCT PREG TEST DATE ( test code = 3576) [facility] URINALYSIS W/O SPECIFIC [id number] 16:39:00* Test Item Value Reference Range Interpretation Comme nts POCT PH U (test code = 3254) 7 mg/dl 5-8 POCT U LEUK EST (test code = 3263) negative Negative - Negative POCT U NIT (test code = 3262) negative Negative - Negati ve POCT U PROT (test code = 3259) trace Negative - Negat giovanny POCT U GLU (test code = 3256) negative Negative - Negati ve POCT U KETONE (test code = 3258) negative Negative - Neg ative POCT U BLD (test code = 3257) negative Negative - Negati ve [facility] [id number] 16:39:00* Test Item Value Reference Range Interpretation Comme nts POCT PREG (test code = 1605) Positive On board controls acceptable with C Line (test code = 3574) Yes POCT PREG LOT # (test code = 3575) POCT PREG TEST DATE ( test code = 3576) [facility] URINALYSIS W/O SPECIFIC [id number] 16:39:00* Test Item Value Reference Range Interpretation Comme nts POCT PH U (test code = 3254) 7 mg/dl 5-8 POCT U LEUK EST (test code = 3263) negative Negative - Negative POCT U NIT (test code = 3262) negative Negative - Negati ve POCT U PROT (test code = 3259) trace Negative - Negat giovanny POCT U GLU (test code = 3256) negative Negative - Negati ve POCT U KETONE (test code = 3258) negative Negative - Neg ative POCT U BLD (test code = 3257) negative Negative - Negati ve [facility] MOLECULAR [id number] 20:25:03* Test Item Value Reference Range Interpretation Comme nts POCT Molecular FluA (test co de = 19540-6) Negative Negative POCT Molecular FluB (test co de = 40122-7) Negative Negative Lab Interpretation (test cod e = 67273-6) [facility] [id number] 20:18:15* Test Item Value Reference Range Interpretation Comme nts POCT Molecular Strep (test c ode = 18493-4) Negative Negative Lab Interpretation (test cod e = 50191-7) [facility] [id number] 20:10:00* Test Item Value Reference Range Interpretation Comme nts POCT PREG (test code = 1605) negative On board controls acceptable with C Line (test code = 3574) positive POCT PREG LOT # (test code = 3575) [id number] POCT PREG TEST DATE ( test code = 3576) 06-14-2021 Lab Interpretation (test cod e = 17347-9) Normal [facility] Notes Date/Time Note Provider Source 2022-10-14 15:18:16 NL+ygMtW6sqzNXR09Srs WsrC5Aqjxwy mf+tNM2smD2Q9svNQzeVWRUNHjaFhqI [id number]:18:16 Pt will be loss to follow. 59529-8Lfawcwrvz encounter ImtiXO1869-75-01E27:18:34Teleph one encounter [id number]. 2.7.2.598858|[id number] [facility] [id number] i Rodriguez RNUTMBUT - [address] LortAxoznuymsDoionrnlmULYW82104 51509EMVOQZZVIHFUBYXIYRBMBT2474 -08-30T15:18:341.2.840.267575.1 .72.3.15|1.2.840.802165.1.13.10 [id number] Maira Junior RN [facility] 2022-10-14 15:12:32 qUqoymtH9PViFBpJbVLo Y3/skUFcG3M QHuc9cUdkzwrlMN7msrLclG74SlTSW2 537782-40-68B28:12:32 Patient has missed three appointments for 3 week post 09/17/22, 09/23/22, and 09/24/22. 01818-2Ltlazioos encounter JvzgOS2694-45-24Q39:13:51Teleph one encounter NoteTXT1.2.840.151530.1.13.104. 2.7.2.098306|[id number] [facility] [id number] a [address] EraeZmwtczlscGkzhsiwfiZMCA03792 76238GTGNDMFMFVPUPROUVEJNKH0765 -08-30T15:13:511.2.840.945363.1 .72.3.15|1.2.840.507932.1.13.10 [id number] Aris Warren [facility]"
[2023-05-17] MEDS ORDERED: MORPHINE 4 MG/ML SYR ONE ×2 (01:14→03:57)
[2023-05-17] MEDS ORDERED: FAMOTIDINE 20 MG/2 ML VIAL IV ONE (01:14)
[2023-05-17] MEDS ORDERED: ONDANSETRON 4 MG/2 ML VIAL ONE (01:14)
[2023-05-17 01:25] LABS: SARS-CoV-2 Antigen CONTROL BLUE LINE VIS/BG OK; SARS-CoV-2 Antigen Rapid Res Negative (Negative)
[2023-05-17 01:29] LABS: Absolute Basophils 0.1 K/uL (0-0.5); Absolute Eosinophils 0.3 K/uL (0-0.5); Absolute Lymphocytes (CBC) 1.8 K/uL (0.7-4.9); Absolute Monocytes 1.7 K/uL (0.1-1.3); Absolute Neutrophil 7.1 K/uL (1.8-8.0); Basophils % 0.5 % (0-1.3); Eosinophils % 2.7 % (0-4.4); Hematocrit 33.8 % (36.0-45.0); Hemoglobin 10.9 g/dL (12.0-15.0); Lymphocytes % 16.1 % (15.3-44.8); MCH 23.1 pg (27.0-35.0); MCHC 32.4 g/dL (32.0-36.0); MCV 71.4 fL (80-100); MPV 7.8 fL (7.6-11.3); Monocytes % 15.6 % (3.3-12.3); Neutrophils % 65.1 % (41.7-73.7); Platelets 293 thou/uL (152-406); RBC Red Blood Cell Count 4.72 M/uL (3.86-4.86); Red Cell Distribution Width 18.1 % (12.1-15.2)
[2023-05-17 01:32] LABS: Albumin 3.5 g/dL (3.4-5.0); Albumin/Globulin Ratio 0.8 (1.1-1.8); Anion Gap 10.4 mEq/L (5.0-15.0); Bilirubin Total 0.4 mg/dL (0.2-1.0); Globulin 4.3 g/dL (2.3-3.5); Potassium 3.4 mEq/L (3.5-5.1); Protein, Total 7.8 g/dL (6.4-8.2)
[2023-05-17 03:33] LABS: Specific Gravity 1.017 (1.005-1.030)
[2023-05-17 03:35] LABS: Specific Gravity 1.017 (1.005-1.030); Sqamous Epithelial <5 /HPF (None Seen); Urine Bacteria 20-50 /HPF (<20); Urine Bilirubin NEGATIVE (Negative); Urine Blood Negative (Negative); Urine Clarity Turbid (Clear); Urine Color Light-Yellow (Yellow); Urine Culture Reflex Order NOT NEEDED; Urine Glucose NEGATIVE (Negative); Urine Ketones 3+ (Negative); Urine Microscopic Reflex YN ORDER UMIC; Urine Mucus 2+ /HPF (None Seen); Urine Nitrite NEGATIVE (Negative); Urine Protein NEGATIVE (Negative); Urine RBC <5 /HPF (None Seen); Urine Urobilinogen Normal (Normal); Urine WBC <5 /HPF (<5); Urine pH 5.5 (5.0-7.0)
[2023-05-17] MEDS ORDERED: DICYCLOMINE HCL 10 MG CAP ONE (05:19)
[2023-05-17] MEDS ORDERED: KETOROLAC 30 MG/ML INJ ONE (05:19)
--- NOTE | 2023-05-17 05:39 | ER ---
Nurse's Notes [facility] Name: Roberto Carlos Mcdermott Age: 23 yrs Sex: Female : 2000 Arrival Date: 05/17/2023 Time: 00:30 Bed 13 Private MD: Diagnosis: Lower abdominal pain, unspecified;Infectious gastroenteritis and colitis, unspecified Presentation: 05/16 00:38 Chief complaint: Patient states: RUQ pain of 8 that radiates to right side chest and pf1 right shoulder,onset 2 days, dizziness,onset yesterday with runny nose and nasal congestion,worse in the past 3-4 days. 00:38 Coronavirus screen: Vaccine status: Patient reports receiving the 2nd dose of the covid pf1 vaccine. Client denies travel out of the [place] in the last 14 days. Client presents with at least one sign or symptom that may indicate coronavirus-19. Ebola Screen: Patient negative for fever greater than or equal to 101.5 degrees Fahrenheit, and additional compatible Ebola Virus Disease symptoms. Initial Sepsis Screen: Does the patient meet any 2 criteria? HR > 90 bpm. No. Patient's initial sepsis screen is negative. Does the patient have a suspected source of infection? No. Patient's initial sepsis screen is negative. Risk Assessment: Do you want to hurt yourself or someone else? Patient reports no desire to harm self or others. Onset of symptoms was May 14, 2023. 00:38 Method Of Arrival: Wheelchair pf1 00:38 Acuity: SHA 3 pf1 Triage Assessment: 00:56 General: Appears in no apparent distress. uncomfortable, well groomed, well developed, pf1 Behavior is cooperative, anxious. Pain: Complains of pain in chest and abdomen that radiates to right shoulder. EENT: Reports nasal congestion nasal discharge. Neuro: Reports dizziness. Historical: - Allergies: 00:56 No Known Allergies; pf1 - PMHx: 00:56 None; pf1 - PSHx: 00:56 None; pf1 - Immunization history:: Adult Immunizations up to date, Client reports receiving the 2nd dose of the Covid vaccine, pfizer Last tetanus immunization: > 10 years ago Flu vaccine is up to date. - Social history:: Smoking status: Reported history of juuling and/or vaping. Patient uses alcohol, occasionally. Patient/guardian denies using street drugs. - Family history:: not pertinent. - Hospitalizations: : No recent hospitalization is reported. Screenin:45 [facility] ED Fall Risk Assessment (Adult) History of falling in the last 3 months, jw7 including since admission No falls in past 3 months (0 pts) Confusion or Disorientation No (0 pts) Intoxicated or Sedated No (0 pts) Impaired Gait No (0 pts) Mobility Assist Device Used No (0 pt) Altered Elimination No (0 pt) Score/Fall Risk Level 0 - 2 = Low Risk Oriented to surroundings, Maintained a safe environment, Educated pt \T\ family on fall prevention, incl call for assistance when getting out of bed. Abuse screen: Denies threats or abuse. Denies injuries from another. Nutritional screening: No deficits noted. Tuberculosis screening: No symptoms or risk factors identified. Assessment: 00:45 General: Appears in no apparent distress. uncomfortable, Behavior is calm, cooperative. jw7 Pain: Complains of pain in right upper quadrant Pain radiates to anterior aspect of right upper chest and right posterior upper chest wall Pain currently is 8 out of 10 on a pain scale. Quality of pain is described as sharp, Pain began suddenly, Is continuous. 00:45 Neuro: Level of Consciousness is awake, alert, obeys commands, Oriented to person, jw7 place, time, situation. Cardiovascular: Heart tones S1 S2 present Capillary refill < 3 seconds Clubbing of nail beds is absent JVD is absent Patient's skin is warm and dry. Respiratory: Airway is patent Trachea midline Respiratory effort is even, unlabored, Respiratory pattern is regular, symmetrical, Breath sounds are clear bilaterally. GI: Abdomen is flat, non-distended, Bowel sounds present X 4 quads. Abd is soft X 4 quads Abdomen is tender to palpation in right upper quadrant Reports nausea, Pain is 8 out of 10 on a pain scale. : No deficits noted. No signs and/or symptoms were reported regarding the genitourinary system. EENT: No deficits noted. No signs and/or symptoms were reported regarding the EENT system. Derm: Skin is intact, is healthy with good turgor, Skin is dry, Skin is normal, Skin temperature is warm. Musculoskeletal: Circulation, motion, and sensation intact. Range of motion:. 01:45 Reassessment: Patient appears in no apparent distress at this time. No changes from 7 previously documented assessment. Patient and/or family updated on plan of care and expected duration. Pain level reassessed. Patient is alert, oriented x 3, equal unlabored respirations, skin warm/dry/pink. 02:26 Reassessment: Patient appears in no apparent distress at this time. Patient and/or jw7 family updated on plan of care and expected duration. Pain level reassessed. Patient is alert, oriented x 3, equal unlabored respirations, skin warm/dry/pink. Patient states feeling better. 03:53 Reassessment: Patient appears in no apparent distress at this time. Patient and/or jw7 family updated on plan of care and expected duration. Pain level reassessed. Patient is alert, oriented x 3, equal unlabored respirations, skin warm/dry/pink. PT C/O RECURRING PAIN, PROVIDER NOTIFIED. 04:55 Reassessment: Patient appears in no apparent distress at this time. No changes from [facility] previously documented assessment. Patient and/or family updated on plan of care and expected duration. Pain level reassessed. Patient is alert, oriented x 3, equal unlabored respirations, skin warm/dry/pink. Vital Signs: 00:38 BP 139 / 88; Pulse 115; Resp 16; Temp 99.5; Pulse Ox 100% on R/A; Weight 65.77 kg; pf1 Height 5 ft. 5 in. ; Pain 8/10; 01:00 BP 128 / 90; Pulse 94; Resp 16 S; Pulse Ox 100% on R/A; jw7 02:28 BP 135 / 81; Pulse 91; Resp 16 S; Pulse Ox 100% on R/A; jw7 03:40 BP 128 / 89; Pulse 87; Resp 16 S; Pulse Ox 98% on R/A; jw7 04:30 BP 119 / 79; Pulse 85; Resp 16 S; Pulse Ox 99% on R/A; jw7 05:59 BP 117 / 76; Pulse 68; Resp 16; Temp 98; Pulse Ox 99% on R/A; rv 00:38 Body Mass Index 24.13 (65.77 kg, 165.1 cm) pf1 00:38 Pain Scale: Adult pf1 ED Course: 00:34 Patient arrived in ED. gm2 00:36 Ulisses Torres MD is Attending Physician. rn 00:40 Patient has correct armband on for positive identification. Placed in gown. Bed in low pf1 position. Call light in reach. Side rails up X 1. 00:45 Provided Education on: USE OF CALL LIGHT. jw7 00:45 Arm band placed on. jw7 00:53 Notified ED physician of other Unable to contact on-call ultrasound, 4 attempts made. ty 00:56 Triage completed. pf1 00:58 CBC with Diff Sent. rv 00:58 CMP Sent. rv 00:58 Lipase Sent. rv 00:59 Initial lab(s) drawn, by me, sent to lab. EKG done, by ED staff, reviewed by Ulisses Torres MD COVID swab sent to lab. Flu and/or RSV swab sent to lab. Inserted saline lock: 20 gauge in right forearm, using aseptic technique. Blood collected. 01:07 Shivani Rachel RN is Primary Nurse. jw7 03:23 Test, Urine Sent. pf1 03:23 Urinalysis w/ reflexes Sent. pf1 03:23 Urine collected: clean catch specimen, clear, Amount Voided: 100mL. pf1 03:43 CT Abd/Pelvis - IV Contrast Only In Process Unspecified. EDMS 04:56 Report given to JACKY CUMMINS. jw7 05:05 US Abdomen Limited In Process Unspecified. EDMS 05:59 No provider procedures requiring assistance completed. IV discontinued, intact, rv bleeding controlled, No redness/swelling at site. Pressure dressing applied. Administered Medications: 01:38 Drug: Famotidine IVP 20 mg IVP once; dilute with 10 mL 0.9% NaCl; give over 2 minutes jw7 Route: IVP; Site: right antecubital; 02:24 Follow up: Response: No adverse reaction; Marked relief of symptoms jw7 01:38 Drug: Ondansetron IVP 4 mg IVP once; over 2 minutes Route: IVP; Site: right antecubital;jw7 02:23 Follow up: Response: No adverse reaction; Marked relief of symptoms; Nausea is decreasedjw7 01:38 Drug: morphine IVP or IV 4 mg IVP once over 4 mins Route: IVP; Infused Over: 4 mins; jw7 Site: right antecubital; 02:23 Follow up: Response: No adverse reaction; Marked relief of symptoms; Pain is decreased jw7 04:03 Drug: morphine IVP or IV 4 mg IVP once over 4 mins Route: IVP; Infused Over: 4 mins; jw7 Site: right antecubital; 05:28 Drug: Dicyclomine PO 20 mg PO once Route: PO; rv 05:28 Drug: Ketorolac IVP 15 mg IVP once Route: IVP; Site: right antecubital; rv Medication: 05:59 VIS not applicable for this client. rv Outcome: 05:38 Discharge ordered by . rn 06:00 Discharged to home ambulatory, rv 06:00 Condition: good 06:00 Discharge instructions given to patient, Instructed on discharge instructions, follow up and referral plans. medication usage, Demonstrated understanding of instructions, follow-up care, medications, Prescriptions given X 4, 06:00 Patient left the ED. rv Signatures: Dispatcher [employer] EDMS Ulisses Torres MD MD rn Vicente, Ronaldo, RN RN rv Shivani Rachel RN RN jw7 Finley, Pamala, RN RN pf1 Cecille Cronin 2 Claudio Curiel Corrections: (The following items were deleted from the chart) 00:58 00:38 BP 139 / 88; Pulse 115bpm; Resp 16bpm; Pulse Ox 100% RA; Temp 99.5F; Pain 8/10, pf1 Adult; pf1 02:26 02:15 Reassessment: Patient appears in no apparent distress at this time. Patient jw7 and/or family updated on plan of care and expected duration. Pain level reassessed. Patient is alert, oriented x 3, equal unlabored respirations, skin warm/dry/pink. Patient states feeling better. jw7
--- NOTE | 2023-05-17 05:39 | EDPHYS ---
Physician Documentation [facility] Name: Roberto Carlos Mcdermott Age: 23 yrs Sex: Female : 2000 Arrival Date: 05/17/2023 Time: 00:30 Bed 13 Private MD: ED Physician Ulisses Torres HPI: 05/16 01:40 This 23 yrs old Black Female presents to ER via Wheelchair with complaints of Abdominal rn Pain, Dizziness. 01:40 The patient presents with abdominal pain in the upper abdomen, in the right upper rn quadrant. Onset: The symptoms/episode began/occurred 2 day(s) ago. The symptoms do not radiate. Associated signs and symptoms: Pertinent positives: nausea, Pertinent negatives: blood in stools, chest pain, fever, shortness of breath, vaginal discharge, vomiting, vomiting blood. The symptoms are described as crampy, intermittent. Modifying factors: The symptoms are alleviated by nothing, the symptoms are aggravated by food, touching the area. Severity of pain: At its worst the pain was moderate in the emergency department the pain is unchanged. The patient has not experienced similar symptoms in the past. Patient reports right upper quadrant abdominal pain for the last few days. Denies fever. Reports nausea and decreased appetite but no vomiting. No blood in stool.. Historical: - Allergies: 00:56 No Known Allergies; pf1 - PMHx: 00:56 None; pf1 - PSHx: 00:56 None; pf1 - Immunization history:: Adult Immunizations up to date, Client reports receiving the 2nd dose of the Covid vaccine, pfizer Last tetanus immunization: > 10 years ago Flu vaccine is up to date. - Social history:: Smoking status: Reported history of juuling and/or vaping. Patient uses alcohol, occasionally. Patient/guardian denies using street drugs. - Family history:: not pertinent. - Hospitalizations: : No recent hospitalization is reported. ROS: 01:40 Constitutional: Negative for fever, chills, and weight loss, Cardiovascular: Negative rn for chest pain, palpitations, and edema, Respiratory: Negative for shortness of breath, cough, wheezing, and pleuritic chest pain, Abdomen/GI: Positive for abdominal pain with nausea Back: Negative for injury and pain, : Negative for injury, bleeding, discharge, and swelling, MS/Extremity: Negative for injury and deformity, Skin: Negative for injury, rash, and discoloration, Neuro: Negative for headache, weakness, numbness, tingling, and seizure, Exam: 01:40 Constitutional: This is a well developed, well nourished patient who is awake, alert, rn appears uncomfortable Head/Face: Normocephalic, atraumatic. Cardiovascular: Tachycardic, regular Respiratory: No increased work of breathing, no retractions or nasal flaring. Abdomen/GI: Soft, tender epigastric and right upper quadrant MS/ Extremity: Pulses equal, no cyanosis. Neuro: Awake and alert, GCS 15 Vital Signs: 00:38 BP 139 / 88; Pulse 115; Resp 16; Temp 99.5; Pulse Ox 100% on R/A; Weight 65.77 kg; pf1 Height 5 ft. 5 in. ; Pain 8/10; 01:00 BP 128 / 90; Pulse 94; Resp 16 S; Pulse Ox 100% on R/A; jw7 02:28 BP 135 / 81; Pulse 91; Resp 16 S; Pulse Ox 100% on R/A; jw7 03:40 BP 128 / 89; Pulse 87; Resp 16 S; Pulse Ox 98% on R/A; jw7 04:30 BP 119 / 79; Pulse 85; Resp 16 S; Pulse Ox 99% on R/A; jw7 05:59 BP 117 / 76; Pulse 68; Resp 16; Temp 98; Pulse Ox 99% on R/A; rv 00:38 Body Mass Index 24.13 (65.77 kg, 165.1 cm) pf1 00:38 Pain Scale: Adult pf1 MDM: 00:36 Patient medically screened. rn 05:15 ED course: CT shows liquid in proximal colon, likely secondary to diarrheal state. This rn in conjunction with congestion over the last 2 days and onset at the same time points towards viral infection. Patient resting and much more comfortable. Will discharge home with as needed Zofran and Bentyl with return precautions. 05:37 Differential diagnosis: appendicitis, bowel obstruction, cholecystitis, Cholelithiasis, rn diverticulitis, gastritis, gastroesophageal reflux disease, non-specific abd pain, pancreatitis, Peptic Ulcer Disease, Perf. Duodenal Ulcer, Perf. Gastric Ulcer. Data reviewed: vital signs, nurses notes, lab test result(s), radiologic studies, CT scan, and as a result, I will discharge patient. 05:38 Counseling: I had a detailed discussion with the patient and/or guardian regarding the rn historical points, exam findings, and any diagnostic results supporting the discharge/admit diagnosis, lab results, radiology results, the need for outpatient follow up, to return to the emergency department if symptoms worsen or persist or if there are any questions or concerns that arise at home. Response to treatment: the patient's symptoms have markedly improved after treatment. Special discussion: I discussed with the patient/guardian in detail that at this point there is no indication for admission to the hospital. It is understood, however, that if the symptoms persist or worsen the patient needs to return immediately for re-evaluation. 05/16 00:49 Order name: CBC with Diff; Complete Time: :44 rn 05/16 00:49 Order name: CMP; Complete Time: :44 rn 05/16 00:49 Order name: Lipase; Complete Time: :44 rn 05/16 00:49 Order name: Test, Urine; Complete Time: 03:41 rn 05/16 00:49 Order name: Urinalysis w/ reflexes; Complete Time: 03:41 rn 05/16 00:50 Order name: SARS RAPID; Complete Time: 01:44 rn 05/16 00:50 Order name: Flu rn 05/16 00:49 Order name: CT Abd/Pelvis - IV Contrast Only rn 05/16 00:50 Order name: US Abdomen Limited rn 05/16 00:49 Order name: IV Saline Lock; Complete Time: 00:58 rn 05/16 00:49 Order name: Labs collected and sent; Complete Time: 00:58 rn 05/16 01:34 Order name: EKG - Nurse/Tech; Complete Time: 01:34 pf1 Administered Medications: 01:38 Drug: Famotidine IVP 20 mg IVP once; dilute with 10 mL 0.9% NaCl; give over 2 minutes jw7 Route: IVP; Site: right antecubital; 02:24 Follow up: Response: No adverse reaction; Marked relief of symptoms jw7 01:38 Drug: Ondansetron IVP 4 mg IVP once; over 2 minutes Route: IVP; Site: right antecubital;jw7 02:23 Follow up: Response: No adverse reaction; Marked relief of symptoms; Nausea is decreasedjw7 01:38 Drug: morphine IVP or IV 4 mg IVP once over 4 mins Route: IVP; Infused Over: 4 mins; jw7 Site: right antecubital; 02:23 Follow up: Response: No adverse reaction; Marked relief of symptoms; Pain is decreased jw7 04:03 Drug: morphine IVP or IV 4 mg IVP once over 4 mins Route: IVP; Infused Over: 4 mins; jw7 Site: right antecubital; 05:28 Drug: Dicyclomine PO 20 mg PO once Route: PO; rv 05:28 Drug: Ketorolac IVP 15 mg IVP once Route: IVP; Site: right antecubital; rv Disposition Summary: 05/17/23 05:38 Discharge Ordered Notes: Location: Home rn Problem: new rn Symptoms: have improved rn Condition: Stable rn Diagnosis - Lower abdominal pain, unspecified rn - Infectious gastroenteritis and colitis, unspecified rn Followup: rn - With: Private Physician - When: As needed - Reason: Recheck today's complaints, Re-evaluation by your physician Discharge Instructions: - Discharge Summary Sheet rn - Abdominal Pain, Adult rn - Colitis rn Forms: - Medication Reconciliation Form rn - Thank You Letter rn - Antibiotic 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 - Prescription Opioid Use rn - Patient Portal Instructions rn - Leadership Thank You Letter rn Prescriptions: - Flagyl 500 mg Oral Tablet - take 1 tablet ORAL route every 8 hours for 10 days; 30 tablet; Refills: 0, rn Product Selection Permitted - Cipro 500 mg Oral tablet - take 1 tablet ORAL route every 12 hours for 10 days; 20 tablet; Refills: 0, rn Product Selection Permitted - Tramadol 50 mg Oral Tablet - take 1 tablet ORAL route every 8 hours as needed; 12 tablet; Refills: 0, rn Product Selection Permitted - dicyclomine 20 mg Oral tablet - take 1 tablet ORAL route 2 times per day As needed; 14 tablet; Refills: 0, rn Product Selection Permitted Signatures: Dispatcher [employer] Ulisses Lundberg MD MD rn Vicente, Ronaldo RN RN Shivani Albright RN RN jw7 Samia Hutchinson RN RN pf1 Corrections: (The following items were deleted from the chart) 00:52 00:52 Abdomen Limited+US.RAD.BRZ ordered. EDMI EDMS 00:52 00:52 SARS-COV-2 Antigen Rapid+I.LAB.BRZ ordered. EDMS EDMS 00:52 00:52 Influenza Screen (A \T\ B)+BA.LAB.BRZ ordered. EDMS EDMS
--- NOTE | 2023-05-17 07:11 | RAD REPORT ---
EXAM DESCRIPTION: US - Abdomen Exam Limited - 05/17/2023 5:03 am CLINICAL HISTORY: ABD PAIN COMPARISON: Abdomen Pelvis W Contrast dated 05/17/2023 FINDINGS: The gallbladder demonstrates no gallstones. No pericholecystic fluid or gallbladder wall t hickening. The common bile duct is normal measuring 2 mm. Distended gallbladder. The liver demonstrates no findings of intrahepatic biliary dilatation. IMPRESSION: Distended gallbladder which could reflect fasting. Negative for cholelithiasis or acute cholecystitis. No biliary duct dilatation.
--- NOTE | 2023-05-17 11:05 | RAD REPORT ---
EXAM DESCRIPTION: CT - Abdomen Pelvis W Contrast - 05/17/2023 6:51 am CLINICAL HISTORY: ABD PAIN COMPARISON: None Available TECHNIQUE: Contiguous axial images of the abdomen and pelvis were obtained after the administration of intravenous contrast followed by reconstruction images.This exam was performed according to our de partmental dose-optimization program, which includes automated exposure control, adjustment of the mA and/or kV according to patient size and/or use of iterative reconstruction technique. FINDINGS: There is a 2.2 cm left ovarian cyst. No further follow-up recommended.. Air-fluid levels w ithin the proximal colon could be secondary to a diarrheal state. The liver, spleen, pancreas and kid neys are within normal limits. There is no hydronephrosis or renal stones. The gallbladder is distend ed otherwise unremarkable by CT criteria. Adrenal glands are within normal limits. Aorta is of normal caliber and tapering. There is no free fluid in the abdomen or pelvis. There is no bowel obstruction . There is no stranding of the mesenteric fat to suggest an inflammatory response. The appendix is wi thin normal limits. There is no pericecal inflammation. IMPRESSION: Air-fluid levels within the proximal colon could be secondary to a diarrheal state. Electronically signed by: Je Banegas MD 05/17/2023 04:15 AM CDT Due to temporary technical issues with the PACS/Fluency reporting system, reports are being signed by the in house radiologist without review as a courtesy to ensure prompt reporting. The interpreting r adiologist is fully responsible for the content of the report.
[2023-05-17 12:58] VITALS: BP 117/76; TEMP 98; O2SAT 99
--- NOTE | 2023-05-17 13:38 | EKG ---
Test Date: 2023-05-16 Test Time: 23:48:39 Powerplant Operator: TRACIE MEASUREMENT RESULTS: Intervals: Rate: 101 IN: 128 QRSD: 82 QT: 348 QTc: 451 [place]: P: 76 IN: 128 QRS: 80 T: 53 INTERPRETIVE STATEMENTS: Sinus tachycardia Otherwise normal ECG No previous ECG available for comparison Electronically Signed On 05-17-23 13:36:15 CDT by Anton Palomares
== END 2023-05-17 06:00 | disposition home or self-care (01) ==
LOC: ER 00:30
DX: A09 Infectious gastroenteritis and colitis, unspecified (principal); Z11.52 Encounter for screening for COVID-19
CPT/HCPCS: 93005; 85025; 81001; 36415; 81025; 83690; 80053; 87804 ×2; 74177; 76705; 96375; 96374; 99284; 87811; Q9967; J2405

== ENCOUNTER 2023-06-02 15:27 | Emergency (ER) | payer OTHER ==
--- NOTE | 2023-06-02 15:40 | EDPHYS ---
Physician Documentation [facility] Name: Roberto Carlos Mcdermott Age: 23 yrs Sex: Female : 2000 Arrival Date: 06/02/2023 Time: 15:27 Bed 12 Private MD: ED Physician Francis Avila HPI: 06/01 15:40 This 23 yrs old Black Female presents to ER via Ambulatory with complaints of Flu ec2 Symptoms. 15:40 Patient arrives today for significant nasal congestion. Patient reports that she been ec2 having several days of congestion. Denies any cough or difficulty breathing, denies fevers or chills, denies nausea or vomiting. Patient reports adequate p.o. intake, no sick contacts. Patient reports history of allergies. Has been taking [id number] with some alleviation in symptoms.. Historical: - Allergies: 15:33 No Known Allergies; ko1 - Home Meds: 15:33 None [Active]; ko1 - PMHx: 15:33 None; ko1 - PSHx: 15:33 None; ko1 - Immunization history:: Adult Immunizations up to date. - Infectious Disease History:: Denies. - Social history:: Smoking status: Patient denies any tobacco usage or history of. ROS: 15:40 Constitutional: as per hpi ec2 Exam: 15:40 Constitutional: GEN: NAD Head: atraumatic Eyes: EOMI Ears: External ears are normal. ec2 Nose significant secretions noted. Mouth posterior oropharynx without erythema or exudates appreciated. No anterior cervical lymphadenopathy noted. CV: regular rate LUNGS: no respiratory distress, no wheezes, rales, or rhonchi ABD: non-distended SKIN: no evidence of rashes MSK: no evidence of trauma NEURO: moves all extremities equally Vital Signs: 15:32 BP 155 / 93; Pulse 95; Resp 18; Temp 97.4; Pulse Ox 100% ; ko1 MDM: 15:38 Patient medically screened. ec2 15:40 Data reviewed: vital signs. ED course: Patient arrives today for nasal congestion. ec2 Examination remarkable for well-appearing nontoxic individual is otherwise in no acute distress with a reassuring examination. Will start the patient on steroids to help with the inflammation. Doubt pneumonia given lack of respiratory symptoms. Possible viral infection causing symptoms, will forego viral swabs as this would not be management changing. Patient discharged home. Return precautions given.. Administered Medications: 15:46 Drug: predniSONE PO 40 mg PO once Route: PO; as6 15:46 Follow up: Response: Medication administered at discharge. as6 Disposition Summary: 06/02/23 15:39 Discharge Ordered Notes: Location: Home ec2 Condition: Stable ec2 Diagnosis - Nasal congestion ec2 Followup: ec2 - With: Private Physician - When: - Reason: Re-evaluation by your physician Discharge Instructions: - Discharge Summary Sheet ec2 - Allergies, Adult, [id number] ec2 Forms: - Medication Reconciliation Form ec2 - Thank You Letter ec2 - Antibiotic Education ec2 - Prescription Opioid Use ec2 - Patient Portal Instructions ec2 - Leadership Thank You Letter ec2 Prescriptions: - Prednisone 20 mg Oral Tablet - take 2 tablets ORAL route once daily for 5 days; 10 tablet; Refills: 0, Product ec2 Selection Permitted Signatures: Nadir Galindo RN RN as6 Sindi Earl RN RN ko1 Francis Avila MD MD ec2
--- NOTE | 2023-06-02 15:40 | ER ---
Nurse's Notes [facility] Name: Roberto Carlos Mcdermott Age: 23 yrs Sex: Female : 2000 Arrival Date: 06/02/2023 Time: 15:27 Bed 12 Private MD: Diagnosis: Nasal congestion Presentation: 06/01 15:32 Chief complaint: Patient states: allergy symptoms that will not go away with OTC meds. ko1 Coronavirus screen: At this time, the client does not indicate any symptoms associated with coronavirus-19. Ebola Screen: No symptoms or risks identified at this time. Initial Sepsis Screen: Does the patient meet any 2 criteria? No. Patient's initial sepsis screen is negative. Does the patient have a suspected source of infection? No. Patient's initial sepsis screen is negative. Risk Assessment: Do you want to hurt yourself or someone else? Patient reports no desire to harm self or others. Onset of symptoms is unknown. 15:32 Method Of Arrival: Ambulatory ko1 15:32 Acuity: SHA 4 ko1 Triage Assessment: 15:33 General: Appears in no apparent distress. uncomfortable, Behavior is calm, cooperative, ko1 appropriate for age. Pain: Complains of pain in forehead. EENT: Reports nasal congestion nasal discharge itchy watery eyes, "sinus headache". Historical: - Allergies: 15:33 No Known Allergies; ko1 - Home Meds: 15:33 None [Active]; ko1 - PMHx: 15:33 None; ko1 - PSHx: 15:33 None; ko1 - Immunization history:: Adult Immunizations up to date. - Infectious Disease History:: Denies. - Social history:: Smoking status: Patient denies any tobacco usage or history of. Screenin:47 [facility] ED Fall Risk Assessment (Adult) History of falling in the last 3 months, as6 including since admission No falls in past 3 months (0 pts) Confusion or Disorientation No (0 pts) Intoxicated or Sedated No (0 pts) Impaired Gait No (0 pts) Mobility Assist Device Used No (0 pt) Altered Elimination No (0 pt) Score/Fall Risk Level 0 - 2 = Low Risk Oriented to surroundings, Maintained a safe environment, Educated pt \\T\\ family on fall prevention, incl call for assistance when getting out of bed, Assessed \\T\\ reinforced patient's understanding of fall precautions. Abuse screen: Denies threats or abuse. Denies injuries from another. Nutritional screening: No deficits noted. Tuberculosis screening: No symptoms or risk factors identified. Assessment: 15:48 Reassessment: Patient appears in no apparent distress at this time. No changes from as6 previously documented assessment. Vital Signs: 15:32 BP 155 / 93; Pulse 95; Resp 18; Temp 97.4; Pulse Ox 100% ; ko1 ED Course: 15:29 Patient arrived in ED. mg5 15:29 Maya Sanderson MD is Attending Physician. sp3 15:33 Triage completed. ko1 15:33 Attending Physician role handed off by Maya Sanderson MD ec2 15:33 Francis Avila MD is Attending Physician. ec2 15:33 Arm band placed on right wrist. Patient placed in an exam room, on a stretcher, on ko1 pulse oximetry, Patient notified of wait time. 15:38 Nadir Galindo RN is Primary Nurse. as6 15:48 Bed in low position. Call light in reach. Provided Education on: rx teaching. as6 15:48 No provider procedures requiring assistance completed. Patient did not have IV access as6 during this emergency room visit. Administered Medications: 15:46 Drug: predniSONE PO 40 mg PO once Route: PO; as6 15:46 Follow up: Response: Medication administered at discharge. as6 Medication: 15:47 VIS not applicable for this client. as6 Outcome: 15:39 Discharge ordered by MD. ec2 15:48 Discharged to home ambulatory, as6 15:48 Condition: stable 15:48 Discharge instructions given to patient, Instructed on discharge instructions, follow up and referral plans. medication usage, Demonstrated understanding of instructions, follow-up care, medications, Prescriptions given X 1, 15:48 Patient left the ED. as6 Signatures: Maya Sanderson MD MD sp3 Nadir Galindo, JACKY RN as6 Sindi Earl RN RN liane1 Brie Tenorio mg5 Francis Avila MD MD ec2
--- OUTSIDE RECORDS SUMMARY | 2023-06-02 15:40 | XMS REPORT | Continuity of Care Document ---
Author Name Unknown Address [address] [facility] [address] [facility] [facility] [address] [place] [address] [facility] thconnect Address [address] [place] [address] Care Team Providers Care Anodiser Name Role Phone ALESHIA DODGE Primary Care Physician UnaYUE Steen Attending Clinician UnavailYue Maldonado CNM Attending Clinician [phone] Doctor Unassigned, [place] Attending Clinician U narcisa Lal MD, Josette Denis Attending Clinician + Anders Dash MD Attending Clinician [phone] Frederic Baugh MD Attending Clinician [phone] EVAN ANTONY Attending Clinician Unavailable 1, [facility] Attending Clinician UnavailShruthi Akbar Attending Clinician [phone] ProviderTamiko Temfrancis Attending Clinician Carolyn vailable Julian Mercedes Attending Clinician + JULIAN ROLAND Attending Clinician Unavail able Guido DO, Jaswinder Attending Clinician [phone] JASWINDER COLEMAN Attending Clinician Unavailable AKSHAT, ANA F Attending Clinician Unavailable Akshat BLOCK, Ana Howe Attending Clinician +[phone] Wil BLOCK, Esther Attending Clinician [phone] ESTHER DE LA TORRE Attending Clinician Unavailable ESTHER DE LA TORRE Attending Clinician Unavailable Benjamin GOLDSTEIN, Aleshia Spangler Attending Clinician [phone] ALESHIA ODDGE Attending Clinician Unavailab MONIQUE Villeda Attending Clinician Unavailable Dharmesh BLOCK, Monique Meza Attending Clinician [phone] Jimmy RICO, Kimberly Attending Clinician Unavailable 2, [facility] Attending Clinician Unavailcrys Bowden MD, Iglesia Almaguer Attending Clinician + [phone] IGLESIA BOWDEN Attending Clinician Unavaila ivan Ultrasound, [facility] Attending Clinician UnavailQING Bhatia Attending Clinician Unavailable Anna Cooley Attending Clinician [phone] GINA RICARDO Attending Clinician Unavailab Gina Beebe DO Attending Clinician + [phone] Qing Morley MD Attending Clinician [phone] Harleen Miles MD Attending Clinician + [phone] HARLEEN MILES Attending Clinician Tanya abad Ultrasound, [facility] Attending Clinician UnavailPARVEZ Leblanc Attending Clinician Unavailable Parvez Chung PA-C Attending Clinician [phone] 2, [facility] Attending Clinician Unavailable Rach Oropeza RN Attending Clinician Unavailab ANNA Parker Attending Clinician Unavailable Hamida Chavez Attending Clinician [phone] Shaniqua Kwong RN Attending Clinician HAMIDA Ramirez Attending Clinician Unavailable Samia Tejada NP Attending Clinician [phone] QING MORLEY Admitting Clinician Unavailable Josette Lal MD Admitting Clinician + JOSETTE LAL Admitting Clinician Unaaby ailable MONIQUE BARROSO Admitting Clinician Unavailable Monique Barroso MD Admitting Clinician HARLEEN MILES Admitting Clinician Tanya Morley MD, Qing Duncan Admitting Clinician Payers Payer Name Policy Type Policy Number Effective Date Expirati on Date Source [place] [employer] [id number] 2022 00:00:00 [facility] [id number] 2015 00:00:00 Problems Condition Name Condition Details Condition Category Status Onset Date Resolution Date Last Treatment Date Treating Clinician Comments Source Anemia, Anemia, Disease Active 08-29 00:00: 00 [facility] Maternal varicella, non-immune Maternal varicella, non-immune Disease Active 08-29 00:00: 00 [facility] (spontaneo us vaginal delivery) (spontaneo us vaginal delivery) Disease Active 08-28 00:00: 00 [facility] Single live Single live Disease Active 08-28 00:00: 00 [facility] Chorioamni onitis Chorioamni onitis Disease Active 08-28 00:00: 00 [facility] Obstetrica l laceration Obstetrica l laceration Disease Active 08-28 00:00: 00 [facility] Forceps delivery Forceps delivery Disease Active 08-28 00:00: 00 [facility] 39 weeks gestation of 39 weeks gestation of Disease Active 08-26 00:00: 00 [facility] Obesity (BMI 30-39.9) Obesity (BMI 30-39.9) Disease Active 08-26 00:00: 00 [facility] Obesity affecting Obesity affecting Disease Active 08-17 00:00: 00 [facility] Hematuria, unspecifie d type Hematuria, unspecifie d type Disease Active 6- 00:00: 00 [facility] Susceptibl e to varicella (non-immun e), currently Susceptibl e to varicella (non-immun e), currently Disease Active 6-26 00:00: 00 [facility] Heartburn during in third trimester Heartburn during in third trimester Disease Active 5-26 00:00: 00 [facility] Low back pain during in third trimester Low back pain during in third trimester Disease Active 5-24 00:00: 00 [facility] COVID-19 affecting in third trimester COVID-19 affecting in third trimester Disease Active 4-30 00:00: 00 Overview: Formattin g of this note might be different from the original. + home test 3 [facility] Overweight (BMI 25.0-29.9) Overweight (BMI 25.0-29.9) Disease Active 4-30 00:00: 00 [facility] Vaginal bleeding in , second trimester Vaginal bleeding in , second trimester Disease Active 4-15 00:00: 00 [facility] 26 weeks gestation of 26 weeks gestation of Disease Active 4-15 00:00: 00 [facility] Umbilical vein abnormalit y affecting , single or unspecifie d fetus Umbilical vein abnormalit y affecting , single or unspecifie d fetus Disease Active 4-05 00:00: 00 [facility] BV (bacterial vaginosis) BV (bacterial vaginosis) Disease Active 1-12 00:00: 00 [facility] Supervisio n of high-risk Supervisio n of high-risk Disease Active 1-10 00:00: 00 [facility] History of miscarriag e History of miscarriag e Disease Active 1-10 00:00: 00 [facility] Vaginal discharge Vaginal discharge Disease Active 2016-02 0-06 00:00: 00 [facility] Depo-Prove ra contracept giovanny status Depo-Prove ra contracept giovanny status Disease Active 10-02 00:00: 00 [facility] Allergies, Adverse Reactions, Alerts Allergy Name Allergy Type Status Severity Reaction(s) Onset Date Inactive Date Treating Clinician Comments Source NO KNOWN ALLERGIE S Drug Class Active [facility] Social History Social Habit Start Date Stop Date Quantity Comments Source ASSERTION 2021-12-10 00:00:00 [facility] Exposure to SARS-CoV-2 (event) 2022-07-12 00:00:00 2022-07-22 20:23:00 Not sure [facility] History of Social function 2022-01-17 00:00:00 2022-01-17 00:00:00 [facility] Tobacco use and exposure 2022-01-17 00:00:00 2022-01-17 00:00:00 Smokeless tobacco non-user [facility] Alcohol intake 2022-01-17 00:00:00 2022-01-17 00:00:00 0 /d [facility] Sex Assigned At 2000 00:00:00 2000 00:00:00 [facility] Smoking Status Start Date Stop Date Source Never smoked tobacco [facility] Medications Ordered Medication Name Filled Medication Name [...] Site: Pelvic
Duration of Therapy: 7 days [facility] vitamin w/FA tablet 08-29 00:00: 00 Yes [id number] 1{tbl} Take 1 tablet by mouth in the morning. [facility] docusate 100 mg capsule 08-29 00:00: 00 Yes [id number] 200mg Take 2 capsules by mouth once daily as needed for Constipati on. [facility] ferrous sulfate 325 mg (65 mg iron) tablet 08-29 00:00: 00 Yes [id number] 325mg Take 1 tablet by mouth in the morning and 1 tablet in the evening. [facility] ibuprofen 600 mg tablet 08-29 00:00: 00 Yes [id number] 600mg Take 1 tablet by mouth every 6 (six) hours as needed (Pain). Take with food or milk. [facility] ampicillin (POLYCILLIN -N) 2,000 mg in NaCl [...] Site: Pelvic
Duration of therapy: 72 hours [facility] ibuprofen (IBU) tablet 600 mg 08-28 05:54: 04 Yes 600mg 600 mg, Oral, Q6HPRN, Starting on Wed08/28/22 at 0054, Until Discontinu ed, Routine, Pain (scale 4-6) [facility] acetaminoph en (TYLENOL) tablet 650 mg 08-28 05:54: 04 Yes 650mg 650 mg, Oral, Q6HPRN, Starting on Wed08/28/22 at 0054, Until Discontinu ed, Routine, Pain (scale 1-3) [facility] diphenhydrA MINE (BENADRYL) tablet 25 mg 08-28 05:54: 04 Yes 25mg 25 mg, Oral, Q6HPRN, Starting on Wed08/28/22 at 0054, Until Discontinu ed, Routine, Sleep, Itching [facility] ondansetron (ZOFRAN (PF)) injection 4 mg 08-28 05:54: 04 Yes 4mg 4 mg, Slow IV Push, Q8HPRN, Starting on Wed08/28/22 at 005, Until Discontinu ed, Routine, Nausea and Vomiting (N/V) [facility] simethicone (GAS RELIEF (SIMETHICON E)) chewable tablet 160 mg 08-28 05:54: 04 Yes 160mg 160 mg, Oral, PC+HSPRN, Starting on Wed08/28/22 at 005, Until Discontinu ed, Routine, Gas [facility] docusate (COLACE) capsule 200 mg 08-28 05:54: 04 Yes 200mg 200 mg, Oral, QDAILYPRN, Starting on Wed08/28/22 at 0054, Until Discontinu ed, Routine, Constipati on [facility] magnesium hydroxide (MILK OF MAGNESIA) 400 mg/5 mL suspension 30 mL 08-28 05:54: 04 Yes 30mL 30 mL, Oral, QDAILYPRN, Starting on Wed08/28/22 at 0054, Until Discontinu ed, Routine, Constipati on [facility] benzocaine- menthol (DERMOPLAST ) 20-0.5 % topical spray 08-28 05:54: 04 Yes Topical, PRN, Starting on Wed08/28/22 at 0054, Until Discontinu ed, Routine, Perineum discomfort [facility] lactated ringers IV infusion 1,000 mL 08-28 05:00: 00 08-28 05:53 :08 No 1000mL at 125 mL/hr, 1,000 mL, IV Infusion, ONCE, 1 dose, On Wed08/28/22 at 0000, AFUA [facility] ibuprofen (IBU) tablet 600 mg 08-28 04:55: 00 Yes 600mg 600 mg, Oral, Q6HPRN, Starting on Wed08/27/22 at 2355, Until Discontinu ed, Routine, Pain (scale 1-3) [facility] oxytocin (PITOCIN) 30 units in NS 500 mL IV infusion 08-28 04:54: 54 Yes 600mL/h 600 mL/hr, IV Infusion, PRN, For post delivery uterine atony., Starting on Wed08/27/[address] at 600 mL/hr for 1 hr then 150 mL/hr for 1 hr.
[facility] oxytocin (PITOCIN) 30 units in NS 500 mL IV infusion 08-28 04:54: 54 Yes 300mL/h 300 mL/hr, IV Infusion, SEE-INSTRU CTIONS, Starting on Wed08/27/[address] at 300 mL/hr for 1 hr then 150 mL/hr for 1 hr. For post delivery uterotonic .
[facility] gentamicin 340 mg in NaCl 0.9% (NS) 250 mL IV infusion 08-28 01:15: 00 08-28 02:47 :25 No 5mg/kg 340 mg (rounded from 338 mg = 5 mg/kg ?67.6 kg Adjusted weight), IV Infusion, Q24H ABX, 1 dose, First dose (after last modificati on) on Wed08/27/22 at 2014, Administer over 60 Minutes, 250 mL
R fouzia for Anti-Infec tive: Empiric Therapy for Suspected Infection< br>Empiric Therapy Site: Pelvic
Duration of therapy: 72 hours [facility] acetaminoph en (TYLENOL) tablet 1,000 mg 08-28 01:15: 00 08-28 00:34 :00 No 1000mg 1,000 mg, Oral, ONCE NOW, 1 dose, On Wed08/27/22 at 2014, Routine [facility] ampicillin (POLYCILLIN -N) 2,000 mg in NaCl 0.9% (NS) 100 mL MINI-BAG 08-28 01:15: 00 08-28 06:02 :33 No 2g 2,000 mg (2 g), IV Piggyback, Q6H ABX, First dose on Whitney 08/27/22 at 2015, Until Discontinu ed, Administer over 30 Minutes, 100 mL
Reas on for Anti-Infec tive: Empiric Therapy for Suspected Infection< br>Empiric Therapy Site: Pelvic
Duration of therapy: 72 hours [facility] ondansetron (ZOFRAN (PF)) injection 4 mg 08-27 14:15: 00 08-27 13:15 :00 No 4mg 4 mg, Slow IV Push, ONCE, On Whitney 08/27/22 at 0915, For 1 dose
Do ses of ondansetro n 16 mg and above need to be administer ed via IV piggyback. For Dose >=24mg ECG monitoring is advisable.
[facility] ropivacaine 0.2 % (NAROPIN (PF)) epidural infusion 08-27 12:19: 00 08-28 06:11 :37 No Epidural, CONTINUOUS PRN, Starting on Whitney 08/27/22 at 0719, Until Wed08/28/22 at 0111, Routine, Intra-op [facility] lidocaine-e pinephrine (XYLOCAINE W/EPINEPHRI NE) 1.5 %-1:200,000 injection 08-27 12:17: 00 08-28 06:11 :37 No Intraderma l, ONCE INTRA PROCEDURE, Starting on Whitney 08/27/22 at 0717, Until Wed08/28/22 at 0111, Routine, Intra-op [facility] oxytocin (PITOCIN) 30 units in NS 500 mL IV infusion 08-27 10:29: 56 Yes 2mU/min at 2-40 mL/hr, IV Infusion, TITRATE, Starting on Whitney 08/27/22 at 0529, Until Discontinu ed, AFUA [facility] lactated ringers IV infusion 500 mL 08-27 10:15: 00 08-27 12:24 :00 No 500mL at 999 mL/hr, 500 mL, IV Infusion, ONCE, 1 dose, On Wed08/27/22 at 0515, Routine [facility] lactated ringers IV infusion 500 mL 08-27 09:29: 47 Yes 500mL at 999 mL/hr, 500 mL, IV Infusion, PRN - SEE INSTRUCTIO NS, 1 dose, Starting on Wed08/27/22 at 0429, Until Discontinu ed, Routine [facility] sodium citrate-cit bravo acid (BICITRA) 500-334 mg/5 mL solution 30 mL 08-27 09:29: 47 08-27 12:24 :00 No 30mL 30 mL, Oral, PRE-PROCED URE ONCE, 1 dose, Starting on Wed08/27/22 at 0429, Until Wed08/27/22 at 0724, Routine, Surgery/Pr ocedure [facility] proMETHazin e (PHENERGAN) 12.5 mg in NS 50 mL IV piggyback (CNR) 08-27 05:30: 00 08-27 05:37 :00 No 12.5mg 12.5 mg, IV Piggyback, at 200 mL/hr Administer over 15 Minutes, ONCE, 1 dose, On Wed08/27/22 at 0030, Routine [facility] morpHINE (4 mg/mL) injection 4 mg 08-27 05:15: 00 08-27 05:22 :00 No 4mg 4 mg, Slow IV Push, ONCE, 1 dose, On Wed08/27/22 at 0015, Routine [facility] sodium citrate-cit bravo acid (BICITRA) 500-334 mg/5 mL solution 30 mL 08-26 20:35: 38 Yes 30mL 30 mL, Oral, PRE-PROCED URE ONCE, 1 dose, Starting on Wed08/26/22 at 1535, Until Discontinu ed, Routine, Surgery/Pr ocedure [facility] lactated ringers IV infusion 500 mL 08-26 20:35: 38 Yes 500mL at 999 mL/hr, 500 mL, IV Infusion, PRN - SEE INSTRUCTIO NS, 1 dose, Starting on Wed08/26/22 at 1535, Until Discontinu ed, Routine [facility] morpHINE (4 mg/mL) injection 4 mg 08-26 20:31: 20 Yes 4mg 4 mg, Slow IV Push, Q4HPRN, Starting on Wed08/26/22 at 1531, Until Discontinu ed, Routine, Pain (scale 4-6) [facility] sodium citrate-cit bravo acid (BICITRA) 500-334 mg/5 mL solution 30 mL 08-26 20:15: 10 Yes 30mL 30 mL, Oral, PRE-PROCED URE ONCE, 1 dose, Starting on Wed08/26/22 at 1515, Until Discontinu ed, Routine, Surgery/Pr ocedure [facility] lidocaine 1% (XYLOCAINE) 10 mg/mL (1 %) injection 50 mL 08-26 20:15: 10 Yes 50mL 50 mL, Infiltrati on, PRN - SEE INSTRUCTIO NS, Starting on Wed08/26/22 at 1515, Until Discontinu ed, Routine, Local anesthesia , For laceration repair only as a local anesthetic as indicated. [facility] lidocaine 1% (PF) (XYLOCAINE) injection 0.3 mL 08-26 20:15: 10 Yes .3mL 0.3 mL, Infiltrati on, PRN - SEE INSTRUCTIO NS, Starting on Wed08/26/22 at 1515, Until Discontinu ed, Routine, Local anesthesia , For IV line placement only as a local anesthetic . [facility] lactated ringers IV infusion 500 mL 08-26 20:15: 10 Yes 500mL at 999 mL/hr, 500 mL, IV Infusion, PRN - SEE INSTRUCTIO NS, Starting on Wed08/26/22 at 1515, Until Discontinu ed, Routine [facility] [id number] IV infusion 1,000 mL 08-26 20:15: 10 Yes 1000mL at 1-125 mL/hr, IV Infusion, TITRATE, Starting on Wed08/26/22 at 1515, Until Discontinu ed, Routine [facility] famotidine (PEPCID) 20 mg tablet 07-10 00:00: 08-29 00:00 :00 No [id number] 20mg Take 1 tablet by mouth in the morning and 1 tablet in the evening. [facility] PROMETHAZIN E 25 mg tablet -24 00:00: 00 07-10 00:00 :00 No [id number] TAKE 1 TABLET BY MOUTH EVERY 6 HOURS NEEDED FOR NAUSEA AND VOMITING . [facility] Nitrofurant oin&Nit. Macrocryst (MACROBID) 100 mg capsule 100 mg 04-21 06:00: 00 04-21 05:53 :00 No 100mg 100 mg, Oral, ONCE, 1 dose, On Wed04/21/22 at 0000, Routine
Reason for Anti-Infec tive: Documented Infection< br>Documen jaden Infection Site: Urine
D uration of Therapy: Other (see Comments) [facility] acetaminoph en (TYLENOL) tablet 650 mg 04-21 05:47: 03 Yes 650mg 650 mg, Oral, Q6HPRN, Starting on Wed04/20/22 at 2347, Until Discontinu ed, Routine, Pain (scale 4-6) [facility] Nitrofurant oin&Nit. Macrocryst 100 mg capsule 04-21 00:00: 00 05-20 00:00 :00 No [id number] 100mg Take 1 capsule by mouth in the morning and 1 capsule in the evening. [facility] metroNIDAZO LE 500 mg tablet - 00:00: 00 03-19 00:00 :00 No [id number] 500mg Take 1 tablet by mouth in the morning and 1 tablet in the evening. [facility] metroNIDAZO LE 500 mg tablet - 00:00: 00 03-05 05:59 :00 No [id number] 500mg Take 1 tablet by mouth in the morning and 1 tablet in the evening. Do all this for 7 days. [facility] vit 33-iron-fol ic-dha (SELECT-OB + DHA) 29 mg iron-1 mg -250 mg combo pack 2021-02 00:00: 00 Yes [id number] Take 1 combo pack daily [facility] vit 33-iron-fol ic-dha (SELECT-OB + DHA) 29 mg iron-1 mg -250 mg combo pack 2021-02 00:00: 00 08-29 00:00 :00 No [id number] Take 1 combo pack daily [facility] proMETHazin e 25 mg tablet 2021-02 00:00: 00 06-08 00:00 :00 No [id number] 25mg Take 1 tablet by mouth every 6 (six) hours as needed for Nausea and Vomiting (N/V). [facility] No known medications 2020-02 14:27: 36 No [facility] phenazopyri dine 200 mg tablet 08-12 00:00: 00 02-10 00:00 :00 No 200mg Take 1 tablet by mouth 3 (three) times daily. [facility] Nitrofurant oin&Nit. Macrocryst (MACROBID) 100 mg capsule 08-12 00:00: 00 02-10 00:00 :00 No 100mg Take 1 capsule by mouth 2 (two) times daily. [facility] naproxen sodium 550 mg tablet 08-12 00:00: 00 02-10 00:00 :00 No 550mg Take 1 tablet by mouth 2 (two) times daily with meals. [facility] promethazin e-codeine 6.25-10 mg/5 mL syrup 02-25 00:00: 00 02-10 00:00 :00 No 5mL Take 5 mL by mouth 4 (four) times daily as needed for Cough. [facility] traMADOL (ULTRAM) 50 mg tablet 02-25 00:00: 02-10 00:00 :00 No 50mg Take 1 tablet by mouth every 6 (six) hours as needed for Pain (scale 4-6). [facility] No known medications No Un elizabeth [facility] Immunizations Ordered Immunization Name Filled Immunization Name Date Status Comments Source Varicella (varivax)(chicken pox) 2022-08-29 00:00:00 Completed [facility] Varicella (varivax)(chicken pox) 2022-08-29 00:00:00 Completed [facility] Varicella (varivax)(chicken pox) 2022-08-29 00:00:00 Completed [facility] Influenza Virus Vaccine Quad IM, Preserv and ABX Free 6 MO-64 YRS 2022-03-19 00:00:00 Completed [facility] Influenza Virus Vaccine Quad IM, Preserv and ABX Free 6 MO-64 YRS 2022-03-19 00:00:00 Completed [facility] Influenza Virus Vaccine Quad IM, Preserv and ABX Free 6 MO-64 YRS 2022-03-19 00:00:00 Completed [facility] Influenza Virus Vaccine Quad IM, Preserv and ABX Free 6 MO-64 YRS 2022-03-19 00:00:00 Completed [facility] Influenza Virus Vaccine Quad IM, Preserv and ABX Free 6 MO-64 YRS 2022-03-19 00:00:00 Completed [facility] Influenza Virus Vaccine Quad IM, Preserv and ABX Free 6 MO-64 YRS 2022-03-19 00:00:00 Completed [facility] Influenza Virus Vaccine Quad IM, Preserv and ABX Free 6 MO-64 YRS 2022-03-19 00:00:00 Completed [facility] Influenza Virus Vaccine Quad IM, Preserv and ABX Free 6 MO-64 YRS 2022-03-19 00:00:00 Completed [facility] Influenza Virus Vaccine Quad IM, Preserv and ABX Free 6 MO-64 YRS 2022-03-19 00:00:00 Completed [facility] Influenza Virus Vaccine Quad IM, Preserv and ABX Free 6 MO-64 YRS 2022-03-19 00:00:00 Completed [facility] Influenza Virus Vaccine Quad IM, Preserv and ABX Free 6 MO-64 YRS 2022-03-19 00:00:00 Completed [facility] Influenza Virus Vaccine Quad IM, Preserv and ABX Free 6 MO-64 YRS 2022-03-19 00:00:00 Completed [facility] Influenza Virus Vaccine Quad IM, Preserv and ABX Free 6 MO-64 YRS 2022-03-19 00:00:00 Completed [facility] Influenza Virus Vaccine Quad IM, Preserv and ABX Free 6 MO-64 YRS 2022-03-19 00:00:00 Completed [facility] Influenza Virus Vaccine Quad IM, Preserv and ABX Free 6 MO-64 YRS 2022-03-19 00:00:00 Completed [facility] Influenza Virus Vaccine Quad IM, Preserv and ABX Free 6 MO-64 YRS 2022-03-19 00:00:00 Completed [facility] Influenza Virus Vaccine Quad IM, Preserv and ABX Free 6 MO-64 YRS 2022-03-19 00:00:00 Completed [facility] Influenza Virus Vaccine Quad IM, Preserv and ABX Free 6 MO-64 YRS 2022-03-19 00:00:00 Completed [facility] Influenza Virus Vaccine Quad IM, Preserv and ABX Free 6 MO-64 YRS 2022-03-19 00:00:00 Completed [facility] Influenza Virus Vaccine Quad IM, Preserv and ABX Free 6 MO-64 YRS 2022-03-19 00:00:00 Completed [facility] Influenza Virus Vaccine Quad IM, Preserv and ABX Free 6 MO-64 YRS 2022-03-19 00:00:00 Completed [facility] Influenza Virus Vaccine Quad IM, Preserv and ABX Free 6 MO-64 YRS 2022-03-19 00:00:00 Completed [facility] Influenza Virus Vaccine Quad IM, Preserv and ABX Free 6 MO-64 YRS 2022-03-19 00:00:00 Completed [facility] Influenza Virus Vaccine Quad IM, Preserv and ABX Free 6 MO-64 YRS 2022-03-19 00:00:00 Completed [facility] Influenza Virus Vaccine Quad IM, Preserv and ABX Free 6 MO-64 YRS 2022-03-19 00:00:00 Completed [facility] Influenza Virus Vaccine Quad IM, Preserv and ABX Free 6 MO-64 YRS 2022-03-19 00:00:00 Completed [facility] Influenza Virus Vaccine Quad IM, Preserv and ABX Free 6 MO-64 YRS 2022-03-19 00:00:00 Completed [facility] Influenza Virus Vaccine Quad IM, Preserv and ABX Free 6 MO-64 YRS 2022-03-19 00:00:00 Completed [facility] Influenza Virus Vaccine Quad IM, Preserv and ABX Free 6 MO-64 YRS 2022-03-19 00:00:00 Completed [facility] Influenza Virus Vaccine Quad IM, Preserv and ABX Free 6 MO-64 YRS 2022-03-19 00:00:00 Completed [facility] Influenza Virus Vaccine Quad IM, Preserv and ABX Free 6 MO-64 YRS 2022-03-19 00:00:00 Completed [facility] Influenza Virus Vaccine Quad IM, Preserv and ABX Free 6 MO-64 YRS 2022-03-19 00:00:00 Completed [facility] Influenza Virus Vaccine Quad IM, Preserv and ABX Free 6 MO-64 YRS 2022-03-19 00:00:00 Completed [facility] Influenza Virus Vaccine Quad IM, Preserv and ABX Free 6 MO-64 YRS 2022-03-19 00:00:00 Completed [facility] Influenza Virus Vaccine Quad IM, Preserv and ABX Free 6 MO-64 YRS 2022-03-19 00:00:00 Completed [facility] Influenza Virus Vaccine Quad IM, Preserv and ABX Free 6 MO-64 YRS 2022-03-19 00:00:00 Completed [facility] Influenza Virus Vaccine Quad IM, Preserv and ABX Free 6 MO-64 YRS 2022-03-19 00:00:00 Completed [facility] Influenza Virus Vaccine Quad IM, Preserv and ABX Free 6 MO-64 YRS 2022-03-19 00:00:00 Completed [facility] Influenza Virus Vaccine Quad IM, Preserv and ABX Free 6 MO-64 YRS 2022-03-19 00:00:00 Completed [facility] Influenza Virus Vaccine Quad IM, Preserv and ABX Free 6 MO-64 YRS 2022-03-19 00:00:00 Completed [facility] Influenza Virus Vaccine Quad IM, Preserv and ABX Free 6 MO-64 YRS 2022-03-19 00:00:00 Completed [facility] Influenza Virus Vaccine Quad IM, Preserv and ABX Free 6 MO-64 YRS 2022-03-19 00:00:00 Completed [facility] Influenza Virus Vaccine Quad IM, Preserv and ABX Free 6 MO-64 YRS 2022-03-19 00:00:00 Completed [facility] Influenza Virus Vaccine Quad IM, Preserv and ABX Free 6 MO-64 YRS 2022-03-19 00:00:00 Completed [facility] Influenza Virus Vaccine Quad IM, Preserv and ABX Free 6 MO-64 YRS 2022-03-19 00:00:00 Completed [facility] Influenza Virus Vaccine Quad IM, Preserv and ABX Free 6 MO-64 YRS 2022-03-19 00:00:00 Completed [facility] Influenza Virus Vaccine Quad IM, Preserv and ABX Free 6 MO-64 YRS 2022-03-19 00:00:00 Completed [facility] Influenza Virus Vaccine Quad IM, Preserv and ABX Free 6 MO-64 YRS 2022-03-19 00:00:00 Completed [facility] Influenza Virus Vaccine Quad IM, Preserv and ABX Free 6 MO-64 YRS 2022-03-19 00:00:00 Completed [facility] Influenza Virus Vaccine Quad IM, Preserv and ABX Free 6 MO-64 YRS 2022-03-19 00:00:00 Completed [facility] Influenza Virus Vaccine Quad IM, Preserv and ABX Free 6 MO-64 YRS 2022-03-19 00:00:00 Completed [facility] Influenza Virus Vaccine Quad IM, Preserv and ABX Free 6 MO-64 YRS 2022-03-19 00:00:00 Completed [facility] Influenza Virus Vaccine Quad IM, Preserv and ABX Free 6 MO-64 YRS 2022-03-19 00:00:00 Completed [facility] Influenza Virus Vaccine Quad IM, Preserv and ABX Free 6 MO-64 YRS 2022-03-19 00:00:00 Completed [facility] Influenza Virus Vaccine Quad IM, Preserv and ABX Free 6 MO-64 YRS 2022-03-19 00:00:00 Completed [facility] Influenza Virus Vaccine Quad IM, Preserv and ABX Free 6 MO-64 YRS 2022-03-19 00:00:00 Completed [facility] Influenza Virus Vaccine Quad IM, Preserv and ABX Free 6 MO-64 YRS 2022-03-19 00:00:00 Completed [facility] Influenza Virus Vaccine Quad IM, Preserv and ABX Free 6 MO-64 YRS 2022-03-19 00:00:00 Completed [facility] Influenza Virus Vaccine Quad IM, Preserv and ABX Free 6 MO-64 YRS 2022-03-19 00:00:00 Completed [facility] Influenza Virus Vaccine Quad IM, Preserv and ABX Free 6 MO-64 YRS 2022-03-19 00:00:00 Completed [facility] Influenza Virus Vaccine Quad IM, Preserv and ABX Free 6 MO-64 YRS 2022-03-19 00:00:00 Completed [facility] Influenza Virus Vaccine Quad IM, Preserv and ABX Free 6 MO-64 YRS 2022-03-19 00:00:00 Completed [facility] Influenza Virus Vaccine Quad IM, Preserv and ABX Free 6 MO-64 YRS 2022-03-19 00:00:00 Completed [facility] Influenza Virus Vaccine Quad IM, Preserv and ABX Free 6 MO-64 YRS 2022-03-19 00:00:00 Completed [facility] Influenza Virus Vaccine Quad IM, Preserv and ABX Free 6 MO-64 YRS 2022-03-19 00:00:00 Completed [facility] Influenza Virus Vaccine Quad IM, Preserv and ABX Free 6 MO-64 YRS 2022-03-19 00:00:00 Completed [facility] SARS-COV-2 COVID-19 PFIZER VACCINE 2020-11-13 00:00:00 Completed [facility] SARS-COV-2 COVID-19 PFIZER VACCINE 2020-11-13 00:00:00 Completed [facility] SARS-COV-2 COVID-19 PFIZER VACCINE 2020-11-13 00:00:00 Completed [facility] SARS-COV-2 COVID-19 PFIZER VACCINE 2020-11-13 00:00:00 Completed [facility] SARS-COV-2 COVID-19 PFIZER VACCINE 2020-11-13 00:00:00 Completed [facility] SARS-COV-2 COVID-19 PFIZER VACCINE 2020-11-13 00:00:00 Completed [facility] SARS-COV-2 COVID-19 PFIZER VACCINE 2020-11-13 00:00:00 Completed [facility] SARS-COV-2 COVID-19 PFIZER VACCINE 2020-11-13 00:00:00 Completed [facility] SARS-COV-2 COVID-19 PFIZER VACCINE 2020-11-13 00:00:00 Completed [facility] SARS-COV-2 COVID-19 PFIZER VACCINE 2020-11-13 00:00:00 Completed [facility] SARS-COV-2 COVID-19 PFIZER VACCINE 2020-11-13 00:00:00 Completed [facility] SARS-COV-2 COVID-19 PFIZER VACCINE 2020-11-13 00:00:00 Completed [facility] SARS-COV-2 COVID-19 PFIZER VACCINE 2020-11-13 00:00:00 Completed [facility] SARS-COV-2 COVID-19 PFIZER VACCINE 2020-11-13 00:00:00 Completed [facility] SARS-COV-2 COVID-19 PFIZER VACCINE 2020-11-13 00:00:00 Completed [facility] SARS-COV-2 COVID-19 PFIZER VACCINE 2020-11-13 00:00:00 Completed [facility] SARS-COV-2 COVID-19 PFIZER VACCINE 2020-11-13 00:00:00 Completed [facility] SARS-COV-2 COVID-19 PFIZER VACCINE 2020-11-13 00:00:00 Completed [facility] SARS-COV-2 COVID-19 PFIZER VACCINE 2020-11-13 00:00:00 Completed [facility] SARS-COV-2 COVID-19 PFIZER VACCINE 2020-11-13 00:00:00 Completed [facility] SARS-COV-2 COVID-19 PFIZER VACCINE 2020-11-13 00:00:00 Completed [facility] SARS-COV-2 COVID-19 PFIZER VACCINE 2020-11-13 00:00:00 Completed [facility] SARS-COV-2 COVID-19 PFIZER VACCINE 2020-11-13 00:00:00 Completed [facility] SARS-COV-2 COVID-19 PFIZER VACCINE 2020-11-13 00:00:00 Completed [facility] SARS-COV-2 COVID-19 PFIZER VACCINE 2020-11-13 00:00:00 Completed [facility] SARS-COV-2 COVID-19 PFIZER VACCINE 2020-11-13 00:00:00 Completed [facility] SARS-COV-2 COVID-19 PFIZER VACCINE 2020-11-13 00:00:00 Completed [facility] SARS-COV-2 COVID-19 PFIZER VACCINE 2020-11-13 00:00:00 Completed [facility] SARS-COV-2 COVID-19 PFIZER VACCINE 2020-11-13 00:00:00 Completed [facility] SARS-COV-2 COVID-19 PFIZER VACCINE 2020-11-13 00:00:00 Completed [facility] SARS-COV-2 COVID-19 PFIZER VACCINE 2020-11-13 00:00:00 Completed [facility] SARS-COV-2 COVID-19 PFIZER VACCINE 2020-11-13 00:00:00 Completed [facility] SARS-COV-2 COVID-19 PFIZER VACCINE 2020-11-13 00:00:00 Completed [facility] SARS-COV-2 COVID-19 PFIZER VACCINE 2020-11-13 00:00:00 Completed [facility] SARS-COV-2 COVID-19 PFIZER VACCINE 2020-11-13 00:00:00 Completed [facility] SARS-COV-2 COVID-19 PFIZER VACCINE 2020-11-13 00:00:00 Completed [facility] SARS-COV-2 COVID-19 PFIZER VACCINE 2020-11-13 00:00:00 Completed [facility] SARS-COV-2 COVID-19 PFIZER VACCINE 2020-11-13 00:00:00 Completed [facility] SARS-COV-2 COVID-19 PFIZER VACCINE 2020-11-13 00:00:00 Completed [facility] SARS-COV-2 COVID-19 PFIZER VACCINE 2020-11-13 00:00:00 Completed [facility] SARS-COV-2 COVID-19 PFIZER VACCINE 2020-11-13 00:00:00 Completed [facility] SARS-COV-2 COVID-19 PFIZER VACCINE 2020-11-13 00:00:00 Completed [facility] SARS-COV-2 COVID-19 PFIZER VACCINE 2020-11-13 00:00:00 Completed [facility] SARS-COV-2 COVID-19 PFIZER VACCINE 2020-11-13 00:00:00 Completed [facility] SARS-COV-2 COVID-19 PFIZER VACCINE 2020-11-13 00:00:00 Completed [facility] SARS-COV-2 COVID-19 PFIZER VACCINE 2020-11-13 00:00:00 Completed [facility] SARS-COV-2 COVID-19 PFIZER VACCINE 2020-11-13 00:00:00 Completed [facility] SARS-COV-2 COVID-19 PFIZER VACCINE 2020-11-13 00:00:00 Completed [facility] SARS-COV-2 COVID-19 PFIZER VACCINE 2020-11-13 00:00:00 Completed [facility] SARS-COV-2 COVID-19 PFIZER VACCINE 2020-11-13 00:00:00 Completed [facility] SARS-COV-2 COVID-19 PFIZER VACCINE 2020-11-13 00:00:00 Completed [facility] SARS-COV-2 COVID-19 PFIZER VACCINE 2020-11-13 00:00:00 Completed [facility] SARS-COV-2 COVID-19 PFIZER VACCINE 2020-11-13 00:00:00 Completed [facility] SARS-COV-2 COVID-19 PFIZER VACCINE 2020-11-13 00:00:00 Completed [facility] SARS-COV-2 COVID-19 PFIZER VACCINE 2020-11-13 00:00:00 Completed [facility] SARS-COV-2 COVID-19 PFIZER VACCINE 2020-11-13 00:00:00 Completed [facility] SARS-COV-2 COVID-19 PFIZER VACCINE 2020-11-13 00:00:00 Completed [facility] SARS-COV-2 COVID-19 PFIZER VACCINE 2020-11-13 00:00:00 Completed [facility] SARS-COV-2 COVID-19 PFIZER VACCINE 2020-11-13 00:00:00 Completed [facility] SARS-COV-2 COVID-19 PFIZER VACCINE 2020-11-13 00:00:00 Completed [facility] SARS-COV-2 COVID-19 PFIZER VACCINE 2020-11-13 00:00:00 Completed [facility] SARS-COV-2 COVID-19 PFIZER VACCINE 2020-11-13 00:00:00 Completed [facility] SARS-COV-2 COVID-19 PFIZER VACCINE 2020-11-13 00:00:00 Completed [facility] SARS-COV-2 COVID-19 PFIZER VACCINE 2020-11-13 00:00:00 Completed [facility] SARS-COV-2 COVID-19 PFIZER VACCINE 2020-11-13 00:00:00 Completed [facility] SARS-COV-2 COVID-19 PFIZER VACCINE 2020-11-13 00:00:00 Completed [facility] SARS-COV-2 COVID-19 PFIZER VACCINE 2020-11-13 00:00:00 Completed [facility] SARS-COV-2 COVID-19 PFIZER VACCINE 2020-11-13 00:00:00 Completed [facility] SARS-COV-2 COVID-19 PFIZER VACCINE 2020-11-13 00:00:00 Completed [facility] SARS-COV-2 COVID-19 PFIZER VACCINE 2020-11-13 00:00:00 Completed [facility] SARS-COV-2 COVID-19 PFIZER VACCINE 2020-10-23 00:00:00 Completed [facility] SARS-COV-2 COVID-19 PFIZER VACCINE 2020-10-23 00:00:00 Completed [facility] SARS-COV-2 COVID-19 PFIZER VACCINE 2020-10-23 00:00:00 Completed [facility] SARS-COV-2 COVID-19 PFIZER VACCINE 2020-10-23 00:00:00 Completed [facility] SARS-COV-2 COVID-19 PFIZER VACCINE 2020-10-23 00:00:00 Completed [facility] SARS-COV-2 COVID-19 PFIZER VACCINE 2020-10-23 00:00:00 Completed [facility] SARS-COV-2 COVID-19 PFIZER VACCINE 2020-10-23 00:00:00 Completed [facility] SARS-COV-2 COVID-19 PFIZER VACCINE 2020-10-23 00:00:00 Completed [facility] SARS-COV-2 COVID-19 PFIZER VACCINE 2020-10-23 00:00:00 Completed [facility] SARS-COV-2 COVID-19 PFIZER VACCINE 2020-10-23 00:00:00 Completed [facility] SARS-COV-2 COVID-19 PFIZER VACCINE 2020-10-23 00:00:00 Completed [facility] SARS-COV-2 COVID-19 PFIZER VACCINE 2020-10-23 00:00:00 Completed [facility] SARS-COV-2 COVID-19 PFIZER VACCINE 2020-10-23 00:00:00 Completed [facility] SARS-COV-2 COVID-19 PFIZER VACCINE 2020-10-23 00:00:00 Completed [facility] SARS-COV-2 COVID-19 PFIZER VACCINE 2020-10-23 00:00:00 Completed [facility] SARS-COV-2 COVID-19 PFIZER VACCINE 2020-10-23 00:00:00 Completed [facility] SARS-COV-2 COVID-19 PFIZER VACCINE 2020-10-23 00:00:00 Completed [facility] SARS-COV-2 COVID-19 PFIZER VACCINE 2020-10-23 00:00:00 Completed [facility] SARS-COV-2 COVID-19 PFIZER VACCINE 2020-10-23 00:00:00 Completed [facility] SARS-COV-2 COVID-19 PFIZER VACCINE 2020-10-23 00:00:00 Completed [facility] SARS-COV-2 COVID-19 PFIZER VACCINE 2020-10-23 00:00:00 Completed [facility] SARS-COV-2 COVID-19 PFIZER VACCINE 2020-10-23 00:00:00 Completed [facility] SARS-COV-2 COVID-19 PFIZER VACCINE 2020-10-23 00:00:00 Completed [facility] SARS-COV-2 COVID-19 PFIZER VACCINE 2020-10-23 00:00:00 Completed [facility] SARS-COV-2 COVID-19 PFIZER VACCINE 2020-10-23 00:00:00 Completed [facility] SARS-COV-2 COVID-19 PFIZER VACCINE 2020-10-23 00:00:00 Completed [facility] SARS-COV-2 COVID-19 PFIZER VACCINE 2020-10-23 00:00:00 Completed [facility] SARS-COV-2 COVID-19 PFIZER VACCINE 2020-10-23 00:00:00 Completed [facility] SARS-COV-2 COVID-19 PFIZER VACCINE 2020-10-23 00:00:00 Completed [facility] SARS-COV-2 COVID-19 PFIZER VACCINE 2020-10-23 00:00:00 Completed [facility] SARS-COV-2 COVID-19 PFIZER VACCINE 2020-10-23 00:00:00 Completed [facility] SARS-COV-2 COVID-19 PFIZER VACCINE 2020-10-23 00:00:00 Completed [facility] SARS-COV-2 COVID-19 PFIZER VACCINE 2020-10-23 00:00:00 Completed [facility] SARS-COV-2 COVID-19 PFIZER VACCINE 2020-10-23 00:00:00 Completed [facility] SARS-COV-2 COVID-19 PFIZER VACCINE 2020-10-23 00:00:00 Completed [facility] SARS-COV-2 COVID-19 PFIZER VACCINE 2020-10-23 00:00:00 Completed [facility] SARS-COV-2 COVID-19 PFIZER VACCINE 2020-10-23 00:00:00 Completed [facility] SARS-COV-2 COVID-19 PFIZER VACCINE 2020-10-23 00:00:00 Completed [facility] SARS-COV-2 COVID-19 PFIZER VACCINE 2020-10-23 00:00:00 Completed [facility] SARS-COV-2 COVID-19 PFIZER VACCINE 2020-10-23 00:00:00 Completed [facility] SARS-COV-2 COVID-19 PFIZER VACCINE 2020-10-23 00:00:00 Completed [facility] SARS-COV-2 COVID-19 PFIZER VACCINE 2020-10-23 00:00:00 Completed [facility] SARS-COV-2 COVID-19 PFIZER VACCINE 2020-10-23 00:00:00 Completed [facility] SARS-COV-2 COVID-19 PFIZER VACCINE 2020-10-23 00:00:00 Completed [facility] SARS-COV-2 COVID-19 PFIZER VACCINE 2020-10-23 00:00:00 Completed [facility] SARS-COV-2 COVID-19 PFIZER VACCINE 2020-10-23 00:00:00 Completed [facility] SARS-COV-2 COVID-19 PFIZER VACCINE 2020-10-23 00:00:00 Completed [facility] SARS-COV-2 COVID-19 PFIZER VACCINE 2020-10-23 00:00:00 Completed [facility] SARS-COV-2 COVID-19 PFIZER VACCINE 2020-10-23 00:00:00 Completed [facility] SARS-COV-2 COVID-19 PFIZER VACCINE 2020-10-23 00:00:00 Completed [facility] SARS-COV-2 COVID-19 PFIZER VACCINE 2020-10-23 00:00:00 Completed [facility] SARS-COV-2 COVID-19 PFIZER VACCINE 2020-10-23 00:00:00 Completed [facility] SARS-COV-2 COVID-19 PFIZER VACCINE 2020-10-23 00:00:00 Completed [facility] SARS-COV-2 COVID-19 PFIZER VACCINE 2020-10-23 00:00:00 Completed [facility] SARS-COV-2 COVID-19 PFIZER VACCINE 2020-10-23 00:00:00 Completed [facility] SARS-COV-2 COVID-19 PFIZER VACCINE 2020-10-23 00:00:00 Completed [facility] SARS-COV-2 COVID-19 PFIZER VACCINE 2020-10-23 00:00:00 Completed [facility] SARS-COV-2 COVID-19 PFIZER VACCINE 2020-10-23 00:00:00 Completed [facility] SARS-COV-2 COVID-19 PFIZER VACCINE 2020-10-23 00:00:00 Completed [facility] SARS-COV-2 COVID-19 PFIZER VACCINE 2020-10-23 00:00:00 Completed [facility] SARS-COV-2 COVID-19 PFIZER VACCINE 2020-10-23 00:00:00 Completed [facility] SARS-COV-2 COVID-19 PFIZER VACCINE 2020-10-23 00:00:00 Completed [facility] SARS-COV-2 COVID-19 PFIZER VACCINE 2020-10-23 00:00:00 Completed [facility] SARS-COV-2 COVID-19 PFIZER VACCINE 2020-10-23 00:00:00 Completed [facility] SARS-COV-2 COVID-19 PFIZER VACCINE 2020-10-23 00:00:00 Completed [facility] SARS-COV-2 COVID-19 PFIZER VACCINE 2020-10-23 00:00:00 Completed [facility] SARS-COV-2 COVID-19 PFIZER VACCINE 2020-10-23 00:00:00 Completed [facility] SARS-COV-2 COVID-19 PFIZER VACCINE 2020-10-23 00:00:00 Completed [facility] SARS-COV-2 COVID-19 PFIZER VACCINE 2020-10-23 00:00:00 Completed [facility] SARS-COV-2 COVID-19 PFIZER VACCINE 2020-10-23 00:00:00 Completed [facility] Influenza Virus Vaccine Quad IM 32016-11-18 00:00:00 Completed [facility] Influenza Virus Vaccine Quad IM 2016-11-18 00:00:00 Completed [facility] Influenza Virus Vaccine Quad IM 2016-11-18 00:00:00 Completed [facility] Influenza Virus Vaccine Quad IM 2016-11-18 00:00:00 Completed [facility] Influenza Virus Vaccine Quad IM 2016-11-18 00:00:00 Completed [facility] Influenza Virus Vaccine Quad IM 2016-11-18 00:00:00 Completed [facility] Influenza Virus Vaccine Quad IM 2016-11-18 00:00:00 Completed [facility] Influenza Virus Vaccine Quad IM 2016-11-18 00:00:00 Completed [facility] Influenza Virus Vaccine Quad IM 2016-11-18 00:00:00 Completed [facility] Influenza Virus Vaccine Quad IM 32016-11-18 00:00:00 Completed [facility] Influenza Virus Vaccine Quad IM 2016-11-18 00:00:00 Completed [facility] Influenza Virus Vaccine Quad IM 3+ YRS 2016-11-18 00:00:00 Completed [facility] Influenza Virus Vaccine Quad IM 3+ YRS 2016-11-18 00:00:00 Completed [facility] Influenza Virus Vaccine Quad IM 3+ YRS 2016-11-18 00:00:00 Completed [facility] Influenza Virus Vaccine Quad IM 3+ YRS 2016-11-18 00:00:00 Completed [facility] Influenza Virus Vaccine Quad IM 3+ YRS 2016-11-18 00:00:00 Completed [facility] Influenza Virus Vaccine Quad IM 3+ YRS 2016-11-18 00:00:00 Completed [facility] Influenza Virus Vaccine Quad IM 3+ YRS 2016-11-18 00:00:00 Completed [facility] Influenza Virus Vaccine Quad IM 3+ YRS 2016-11-18 00:00:00 Completed [facility] Influenza Virus Vaccine Quad IM 3+ YRS 2016-11-18 00:00:00 Completed [facility] Influenza Virus Vaccine Quad IM 3+ YRS 2016-11-18 00:00:00 Completed [facility] Influenza Virus Vaccine Quad IM 3+ YRS 2016-11-18 00:00:00 Completed [facility] Influenza Virus Vaccine Quad IM 3+ YRS 2016-11-18 00:00:00 Completed [facility] Influenza Virus Vaccine Quad IM 3+ YRS 2016-11-18 00:00:00 Completed [facility] Influenza Virus Vaccine Quad IM 3+ YRS 2016-11-18 00:00:00 Completed [facility] Influenza Virus Vaccine Quad IM 3+ YRS 2016-11-18 00:00:00 Completed [facility] Influenza Virus Vaccine Quad IM 3+ YRS 2016-11-18 00:00:00 Completed [facility] Influenza Virus Vaccine Quad IM 3+ YRS 2016-11-18 00:00:[address] [facility] Influenza Virus Vaccine Quad IM 3+ YRS 2016-11-18 00:00:00 Completed [facility] Influenza Virus Vaccine Quad IM 3+ YRS 2016-11-18 00:00:[address] [facility] Influenza Virus Vaccine Quad IM 3+ YRS 2016-11-18 00:00:00 Completed [facility] Influenza Virus Vaccine Quad IM 3+ YRS 2016-11-18 00:00:00 Completed [facility] Influenza Virus Vaccine Quad IM 3+ YRS 2016-11-18 00:00:00 Completed [facility] Influenza Virus Vaccine Quad IM 3+ YRS 2016-11-18 00:00:00 Completed [facility] Influenza Virus Vaccine Quad IM 3+ YRS 2016-11-18 00:00:00 Completed [facility] Influenza Virus Vaccine Quad IM 3+ YRS 2016-11-18 00:00:00 Completed [facility] Influenza Virus Vaccine Quad IM 3+ YRS 2016-11-18 00:00:00 Completed [facility] Influenza Virus Vaccine Quad IM 3+ YRS 2016-11-18 00:00:00 Completed [facility] Influenza Virus Vaccine Quad IM 3+ YRS 2016-11-18 00:00:00 Completed [facility] Influenza Virus Vaccine Quad IM 3+ YRS 2016-11-18 00:00:00 Completed [facility] Influenza Virus Vaccine Quad IM 3+ YRS 2016-11-18 00:00:00 Completed [facility] Influenza Virus Vaccine Quad IM 3+ YRS 2016-11-18 00:00:00 Completed [facility] Influenza Virus Vaccine Quad IM 3+ YRS 2016-11-18 00:00:00 Completed [facility] Influenza Virus Vaccine Quad IM 3+ YRS 2016-11-18 00:00:00 Completed [facility] Influenza Virus Vaccine Quad IM 3+ YRS 2016-11-18 00:00:00 Completed [facility] Influenza Virus Vaccine Quad IM 3+ YRS 2016-11-18 00:00:00 Completed [facility] Influenza Virus Vaccine Quad IM 3+ YRS 2016-11-18 00:00:00 Completed [facility] Influenza Virus Vaccine Quad IM 3+ YRS 2016-11-18 00:00:00 Completed [facility] Influenza Virus Vaccine Quad IM 3+ YRS 2016-11-18 00:00:[address] [facility] Influenza Virus Vaccine Quad IM 3+ YRS 2016-11-18 00:00:00 Completed [facility] Influenza Virus Vaccine Quad IM 3+ YRS 2016-11-18 00:00:00 Completed [facility] Influenza Virus Vaccine Quad IM 3+ YRS 2016-11-18 00:00:00 Completed [facility] Influenza Virus Vaccine Quad IM 3+ YRS 2016-11-18 00:00:00 Completed [facility] Influenza Virus Vaccine Quad IM 3+ YRS 2016-11-18 00:00:[address] [facility] Influenza Virus Vaccine Quad IM 3+ YRS 2016-11-18 00:00:00 Completed [facility] Influenza Virus Vaccine Quad IM 3+ YRS 2016-11-18 00:00:00 Completed [facility] Influenza Virus Vaccine Quad IM 3+ YRS 2016-11-18 00:00:00 Completed [facility] Influenza Virus Vaccine Quad IM 3+ YRS 2016-11-18 00:00:00 Completed [facility] Influenza Virus Vaccine Quad IM 3+ YRS 2016-11-18 00:00:00 Completed [facility] Influenza Virus Vaccine Quad IM 3+ YRS 2016-11-18 00:00:00 Completed [facility] Influenza Virus Vaccine Quad IM 3+ YRS 2016-11-18 00:00:00 Completed [facility] Influenza Virus Vaccine Quad IM 3+ YRS 2016-11-18 00:00:00 Completed [facility] Influenza Virus Vaccine Quad IM 3+ YRS 2016-11-18 00:00:00 Completed [facility] Influenza Virus Vaccine Quad IM 3+ YRS 2016-11-18 00:00:00 Completed [facility] Influenza Virus Vaccine Quad IM 3+ YRS 2016-11-18 00:00:[address] [facility] Influenza Virus Vaccine Quad IM 3+ YRS 2016-11-18 00:00:00 Completed [facility] Influenza Virus Vaccine Quad IM 3+ YRS 2016-11-18 00:00:00 Completed [facility] Influenza Virus Vaccine Quad IM 3+ YRS 2016-11-18 00:00:00 Completed [facility] Influenza Virus Vaccine Quad IM 3+ YRS 2016-11-18 00:00:00 Completed [facility] Influenza Virus Vaccine Quad IM 3+ YRS 2016-11-18 00:00:[address] [facility] Influenza Virus Vaccine Quad IM 3+ YRS 2016-11-18 00:00:00 Completed [facility] Influenza Virus Vaccine Quad IM 3+ YRS 2016-11-18 00:00:00 Completed [facility] Influenza Virus Vaccine Quad IM 3+ YRS 2016-11-18 00:00:00 Completed [facility] Influenza Virus Vaccine Quad IM 3+ YRS 2016-11-18 00:00:00 Completed [facility] Influenza Virus Vaccine Quad IM 3+ YRS 2016-11-18 00:00:00 Completed [facility] Influenza Virus Vaccine Quad IM 3+ YRS 2016-11-18 00:00:00 Completed [facility] Influenza Virus Vaccine Quad IM 3+ YRS 2016-11-18 00:00:00 Completed [facility] Influenza Virus Vaccine Quad IM 3+ YRS 2016-11-18 00:00:00 Completed [facility] Influenza Virus Vaccine Quad IM 3+ YRS 2016-11-18 00:00:00 Completed [facility] Influenza Virus Vaccine Quad IM 3+ YRS 2016-11-18 00:00:00 Completed [facility] Influenza Virus Vaccine Quad IM 3+ YRS 2016-11-18 00:00:00 Completed [facility] Influenza Virus Vaccine Quad IM 3+ YRS 2016-11-18 00:00:00 Completed [facility] Influenza Virus Vaccine Quad IM 3+ YRS 2016-11-18 00:00:00 Completed [facility] Influenza Virus Vaccine Quad IM 3+ YRS 2016-11-18 00:00:00 Completed [facility] Influenza Virus Vaccine Quad IM 3+ YRS 2016-11-18 00:00:00 Completed [facility] HPV9 2016-04-06 00:00:00 Completed [facility] HPV9 2016-04-06 00:00:00 Completed [facility] HPV9 2016-04-06 00:00:00 Completed [facility] HPV9 2016-04-06 00:00:00 Completed [facility] HPV9 2016-04-06 00:00:00 Completed [facility] HPV9 2016-04-06 00:00:00 Completed [facility] HPV9 2016-04-06 00:00:00 Completed [facility] HPV9 2016-04-06 00:00:00 Completed [facility] HPV9 2016-04-06 00:00:00 Completed [facility] HPV9 2016-04-06 00:00:00 Completed [facility] HPV9 2016-04-06 00:00:00 Completed [facility] HPV9 2016-04-06 00:00:00 Completed [facility] HPV9 2016-04-06 00:00:00 Completed [facility] HPV9 2016-04-06 00:00:00 Completed [facility] HPV9 2016-04-06 00:00:00 Completed [facility] HPV9 2016-04-06 00:00:00 Completed [facility] HPV9 2016-04-06 00:00:00 Completed [facility] HPV9 2016-04-06 00:00:00 Completed [facility] HPV9 2016-04-06 00:00:00 Completed [facility] HPV9 2016-04-06 00:00:00 Completed [facility] HPV9 2016-04-06 00:00:00 Completed [facility] HPV9 2016-04-06 00:00:00 Completed [facility] HPV9 2016-04-06 00:00:00 Completed [facility] HPV9 2016-04-06 00:00:00 Completed [facility] HPV9 2016-04-06 00:00:00 Completed [facility] HPV9 2016-04-06 00:00:00 Completed [facility] HPV9 2016-04-06 00:00:00 Completed [facility] HPV9 2016-04-06 00:00:00 Completed [facility] HPV9 2016-04-06 00:00:00 Completed [facility] HPV9 2016-04-06 00:00:00 Completed [facility] HPV9 2016-04-06 00:00:00 Completed [facility] HPV9 2016-04-06 00:00:00 Completed [facility] HPV9 2016-04-06 00:00:00 Completed [facility] HPV9 2016-04-06 00:00:00 Completed [facility] HPV9 2016-04-06 00:00:00 Completed [facility] HPV9 2016-04-06 00:00:00 Completed [facility] HPV9 2016-04-06 00:00:00 Completed [facility] HPV9 2016-04-06 00:00:00 Completed [facility] HPV9 2016-04-06 00:00:00 Completed [facility] HPV9 2016-04-06 00:00:00 Completed [facility] HPV9 2016-04-06 00:00:00 Completed [facility] HPV9 2016-04-06 00:00:00 Completed [facility] HPV9 2016-04-06 00:00:00 Completed [facility] HPV9 2016-04-06 00:00:00 Completed [facility] HPV9 2016-04-06 00:00:00 Completed [facility] HPV9 2016-04-06 00:00:00 Completed [facility] HPV9 2016-04-06 00:00:00 Completed [facility] HPV9 2016-04-06 00:00:00 Completed [facility] HPV9 2016-04-06 00:00:00 Completed [facility] HPV9 2016-04-06 00:00:00 Completed [facility] HPV9 2016-04-06 00:00:00 Completed [facility] HPV9 2016-04-06 00:00:00 Completed [facility] HPV9 2016-04-06 00:00:00 Completed [facility] HPV9 2016-04-06 00:00:00 Completed [facility] HPV9 2016-04-06 00:00:00 Completed [facility] HPV9 2016-04-06 00:00:00 Completed [facility] HPV9 2016-04-06 00:00:00 Completed [facility] HPV9 2016-04-06 00:00:00 Completed [facility] HPV9 2016-04-06 00:00:00 Completed [facility] HPV9 2016-04-06 00:00:00 Completed [facility] HPV9 2016-04-06 00:00:00 Completed [facility] HPV9 2016-04-06 00:00:00 Completed [facility] HPV9 2016-04-06 00:00:00 Completed [facility] HPV9 2016-04-06 00:00:00 Completed [facility] HPV9 2016-04-06 00:00:00 Completed [facility] HPV9 2016-04-06 00:00:00 Completed [facility] HPV9 2016-04-06 00:00:00 Completed [facility] HPV9 2016-04-06 00:00:00 Completed [facility] HPV9 2016-04-06 00:00:00 Completed [facility] HPV9 2016-04-06 00:00:00 Completed [facility] HPV9 2016-04-06 00:00:00 Completed [facility] HPV9 2016-04-06 00:00:00 Completed [facility] HPV9 2016-04-06 00:00:00 Completed [facility] HPV9 2016-04-06 00:00:00 Completed [facility] HPV9 2016-04-06 00:00:00 Completed [facility] HPV9 2016-04-06 00:00:00 Completed [facility] HPV9 2016-04-06 00:00:00 Completed [facility] HPV9 2016-04-06 00:00:00 Completed [facility] HPV9 2016-04-06 00:00:00 Completed [facility] HPV9 2016-04-06 00:00:00 Completed [facility] HPV9 2016-04-06 00:00:00 Completed [facility] HPV9 2016-04-06 00:00:00 Completed [facility] HPV9 2016-04-06 00:00:00 Completed [facility] HPV9 2016-04-06 00:00:00 Completed [facility] HPV9 2016-04-06 00:00:00 Completed [facility] HPV9 2016-01-06 00:00:00 Completed [facility] HPV9 2016-01-06 00:00:00 Completed [facility] HPV9 2016-01-06 00:00:00 Completed [facility] HPV9 2016-01-06 00:00:00 Completed [facility] HPV9 2016-01-06 00:00:00 Completed [facility] HPV9 2016-01-06 00:00:00 Completed [facility] HPV9 2016-01-06 00:00:[address] [facility] HPV9 2016-01-06 00:00:00 Completed [facility] HPV9 2016-01-06 00:00:00 Completed [facility] HPV9 2016-01-06 00:00:00 Completed [facility] HPV9 2016-01-06 00:00:00 Completed [facility] HPV9 2016-01-06 00:00:00 Completed [facility] HPV9 2016-01-06 00:00:00 Completed [facility] HPV9 2016-01-06 00:00:00 Completed [facility] HPV9 2016-01-06 00:00:00 Completed [facility] HPV9 2016-01-06 00:00:00 Completed [facility] HPV9 2016-01-06 00:00:00 Completed [facility] HPV9 2016-01-06 00:00:00 Completed [facility] HPV9 2016-01-06 00:00:00 Completed [facility] HPV9 2016-01-06 00:00:00 Completed [facility] HPV9 2016-01-06 00:00:00 Completed [facility] HPV9 2016-01-06 00:00:00 Completed [facility] HPV9 2016-01-06 00:00:00 Completed [facility] HPV9 2016-01-06 00:00:00 Completed [facility] HPV9 2016-01-06 00:00:00 Completed [facility] HPV9 2016-01-06 00:00:00 Completed [facility] HPV9 2016-01-06 00:00:00 Completed [facility] HPV9 2016-01-06 00:00:00 Completed [facility] HPV9 2016-01-06 00:00:00 Completed [facility] HPV9 2016-01-06 00:00:[address] [facility] HPV9 2016-01-06 00:00:[address] [facility] HPV9 2016-01-06 00:00:[address] [facility] HPV9 2016-01-06 00:00:00 Completed [facility] HPV9 2016-01-06 00:00:00 Completed [facility] HPV9 2016-01-06 00:00:[address] [facility] HPV9 2016-01-06 00:00:00 Completed [facility] HPV9 2016-01-06 00:00:[address] [facility] HPV9 2016-01-06 00:00:00 Completed [facility] HPV9 2016-01-06 00:00:00 Completed [facility] HPV9 2016-01-06 00:00:00 Completed [facility] HPV9 2016-01-06 00:00:00 Completed [facility] HPV9 2016-01-06 00:00:00 Completed [facility] HPV9 2016-01-06 00:00:00 Completed [facility] HPV9 2016-01-06 00:00:00 Completed [facility] HPV9 2016-01-06 00:00:00 Completed [facility] HPV9 2016-01-06 00:00:00 Completed [facility] HPV9 2016-01-06 00:00:00 Completed [facility] HPV9 2016-01-06 00:00:00 Completed [facility] HPV9 2016-01-06 00:00:00 Completed [facility] HPV9 2016-01-06 00:00:00 Completed [facility] HPV9 2016-01-06 00:00:00 Completed [facility] HPV9 2016-01-06 00:00:00 Completed [facility] HPV9 2016-01-06 00:00:00 Completed [facility] HPV9 2016-01-06 00:00:00 Completed [facility] HPV9 2016-01-06 00:00:00 Completed [facility] HPV9 2016-01-06 00:00:00 Completed [facility] HPV9 2016-01-06 00:00:00 Completed [facility] HPV9 2016-01-06 00:00:00 Completed [facility] HPV9 2016-01-06 00:00:00 Completed [facility] HPV9 2016-01-06 00:00:00 Completed [facility] HPV9 2016-01-06 00:00:00 Completed [facility] HPV9 2016-01-06 00:00:00 Completed [facility] HPV9 2016-01-06 00:00:00 Completed [facility] HPV9 2016-01-06 00:00:00 Completed [facility] HPV9 2016-01-06 00:00:[address] [facility] HPV9 2016-01-06 00:00:00 Completed [facility] HPV9 2016-01-06 00:00:00 Completed [facility] HPV9 2016-01-06 00:00:00 Completed [facility] HPV9 2016-01-06 00:00:00 Completed [facility] HPV9 2016-01-06 00:00:00 Completed [facility] HPV9 2016-01-06 00:00:00 Completed [facility] HPV9 2016-01-06 00:00:00 Completed [facility] HPV9 2016-01-06 00:00:00 Completed [facility] HPV9 2016-01-06 00:00:00 Completed [facility] HPV9 2016-01-06 00:00:00 Completed [facility] HPV9 2016-01-06 00:00:00 Completed [facility] HPV9 2016-01-06 00:00:00 Completed [facility] HPV9 2016-01-06 00:00:00 Completed [facility] HPV9 2016-01-06 00:00:00 Completed [facility] HPV9 2016-01-06 00:00:00 Completed [facility] HPV9 2016-01-06 00:00:00 Completed [facility] HPV9 2016-01-06 00:00:00 Completed [facility] HPV9 2016-01-06 00:00:00 Completed [facility] HPV9 2016-01-06 00:00:00 Completed [facility] HPV9 2016-01-06 00:00:00 Completed [facility] HPV9 2015-10-03 00:00:00 Completed [facility] HPV9 2015-10-03 00:00:00 Completed [facility] HPV9 2015-10-03 00:00:00 Completed [facility] HPV9 2015-10-03 00:00:[address] [facility] HPV9 2015-10-03 00:00:[address] [facility] HPV9 2015-10-03 00:00:00 Completed [facility] HPV9 2015-10-03 00:00:00 Completed [facility] HPV9 2015-10-03 00:00:[address] [facility] HPV9 2015-10-03 00:00:00 Completed [facility] HPV9 2015-10-03 00:00:00 Completed [facility] HPV9 2015-10-03 00:00:[address] [facility] HPV9 2015-10-03 00:00:[address] [facility] HPV9 2015-10-03 00:00:00 Completed [facility] HPV9 2015-10-03 00:00:00 Completed [facility] HPV9 2015-10-03 00:00:00 Completed [facility] HPV9 2015-10-03 00:00:00 Completed [facility] HPV9 2015-10-03 00:00:00 Completed [facility] HPV9 2015-10-03 00:00:00 Completed [facility] HPV9 2015-10-03 00:00:00 Completed [facility] HPV9 2015-10-03 00:00:00 Completed [facility] HPV9 2015-10-03 00:00:00 Completed [facility] HPV9 2015-10-03 00:00:00 Completed [facility] HPV9 2015-10-03 00:00:00 Completed [facility] HPV9 2015-10-03 00:00:00 Completed [facility] HPV9 2015-10-03 00:00:00 Completed [facility] HPV9 2015-10-03 00:00:[address] [facility] HPV9 2015-10-03 00:00:[address] [facility] HPV9 2015-10-03 00:00:[address] [facility] HPV9 2015-10-03 00:00:[address] [facility] HPV9 2015-10-03 00:00:[address] [facility] HPV9 2015-10-03 00:00:00 Completed [facility] HPV9 2015-10-03 00:00:[address] [facility] HPV9 2015-10-03 00:00:[address] [facility] HPV9 2015-10-03 00:00:[address] [facility] HPV9 2015-10-03 00:00:[address] [facility] HPV9 2015-10-03 00:00:[address] [facility] HPV9 2015-10-03 00:00:00 Completed [facility] HPV9 2015-10-03 00:00:00 Completed [facility] HPV9 2015-10-03 00:00:00 Completed [facility] HPV9 2015-10-03 00:00:00 Completed [facility] HPV9 2015-10-03 00:00:[address] [facility] HPV9 2015-10-03 00:00:00 Completed [facility] HPV9 2015-10-03 00:00:00 Completed [facility] HPV9 2015-10-03 00:00:00 Completed [facility] HPV9 2015-10-03 00:00:00 Completed [facility] HPV9 2015-10-03 00:00:00 Completed [facility] HPV9 2015-10-03 00:00:00 Completed [facility] HPV9 2015-10-03 00:00:00 Completed [facility] HPV9 2015-10-03 00:00:00 Completed [facility] HPV9 2015-10-03 00:00:00 Completed [facility] HPV9 2015-10-03 00:00:00 Completed [facility] HPV9 2015-10-03 00:00:00 Completed [facility] HPV9 2015-10-03 00:00:[address] [facility] HPV9 2015-10-03 00:00:00 Completed [facility] HPV9 2015-10-03 00:00:00 Completed [facility] HPV9 2015-10-03 00:00:[address] [facility] HPV9 2015-10-03 00:00:[address] [facility] HPV9 2015-10-03 00:00:[address] [facility] HPV9 2015-10-03 00:00:00 Completed [facility] HPV9 2015-10-03 00:00:[address] [facility] HPV9 2015-10-03 00:00:[address] [facility] HPV9 2015-10-03 00:00:[address] [facility] HPV9 2015-10-03 00:00:[address] [facility] HPV9 2015-10-03 00:00:00 Completed [facility] HPV9 2015-10-03 00:00:00 Completed [facility] HPV9 2015-10-03 00:00:00 Completed [facility] HPV9 2015-10-03 00:00:[address] [facility] HPV9 2015-10-03 00:00:00 Completed [facility] HPV9 2015-10-03 00:00:00 Completed [facility] HPV9 2015-10-03 00:00:[address] [facility] HPV9 2015-10-03 00:00:[address] [facility] HPV9 2015-10-03 00:00:00 Completed [facility] HPV9 2015-10-03 00:00:00 Completed [facility] HPV9 2015-10-03 00:00:00 Completed [facility] HPV9 2015-10-03 00:00:00 Completed [facility] HPV9 2015-10-03 00:00:00 Completed [facility] HPV9 2015-10-03 00:00:00 Completed [facility] HPV9 2015-10-03 00:00:00 Completed [facility] HPV9 2015-10-03 00:00:00 Completed [facility] HPV9 2015-10-03 00:00:00 Completed [facility] HPV9 2015-10-03 00:00:[address] [facility] HPV9 2015-10-03 00:00:00 Completed [facility] HPV9 2015-10-03 00:00:00 Completed [facility] HPV9 2015-10-03 00:00:[address] [facility] HPV9 2015-10-03 00:00:00 Completed [facility] MMR 2014-06-28 00:00:00 Completed [facility] MMR 2014-06-28 00:00:00 Completed [facility] MMR 2014-06-28 00:00:00 Completed [facility] MMR 2014-06-28 00:00:00 Completed [facility] MMR 2014-06-28 00:00:00 Completed [facility] MMR 2014-06-28 00:00:00 Completed [facility] MMR 2014-06-28 00:00:00 Completed [facility] MMR 2014-06-28 00:00:00 Completed [facility] MMR 2014-06-28 00:00:00 Completed [facility] MMR 2014-06-28 00:00:00 Completed [facility] MMR 2014-06-28 00:00:00 Completed [facility] MMR 2014-06-28 00:00:00 Completed [facility] MMR 2014-06-28 00:00:00 Completed [facility] MMR 2014-06-28 00:00:00 Completed [facility] MMR 2014-06-28 00:00:00 Completed [facility] MMR 2014-06-28 00:00:00 Completed [facility] MMR 2014-06-28 00:00:00 Completed [facility] MMR 2014-06-28 00:00:00 Completed [facility] MMR 2014-06-28 00:00:00 Completed [facility] MMR 2014-06-28 00:00:00 Completed [facility] MMR 2014-06-28 00:00:00 Completed [facility] MMR 2014-06-28 00:00:00 Completed [facility] MMR 2014-06-28 00:00:00 Completed [facility] MMR 2014-06-28 00:00:00 Completed [facility] MMR 2014-06-28 00:00:00 Completed [facility] MMR 2014-06-28 00:00:00 Completed [facility] MMR 2014-06-28 00:00:00 Completed [facility] MMR 2014-06-28 00:00:00 Completed [facility] MMR 2014-06-28 00:00:00 Completed [facility] MMR 2014-06-28 00:00:00 Completed [facility] MMR 2014-06-28 00:00:00 Completed [facility] MMR 2014-06-28 00:00:00 Completed [facility] MMR 2014-06-28 00:00:00 Completed [facility] MMR 2014-06-28 00:00:00 Completed [facility] MMR 2014-06-28 00:00:00 Completed [facility] MMR 2014-06-28 00:00:00 Completed [facility] MMR 2014-06-28 00:00:00 Completed [facility] MMR 2014-06-28 00:00:00 Completed [facility] MMR 2014-06-28 00:00:00 Completed [facility] MMR 2014-06-28 00:00:00 Completed [facility] MMR 2014-06-28 00:00:00 Completed [facility] MMR 2014-06-28 00:00:00 Completed [facility] MMR 2014-06-28 00:00:00 Completed [facility] MMR 2014-06-28 00:00:00 Completed [facility] MMR 2014-06-28 00:00:00 Completed [facility] MMR 2014-06-28 00:00:00 Completed [facility] MMR 2014-06-28 00:00:00 Completed [facility] MMR 2014-06-28 00:00:00 Completed [facility] MMR 2014-06-28 00:00:00 Completed [facility] MMR 2014-06-28 00:00:00 Completed [facility] MMR 2014-06-28 00:00:00 Completed [facility] MMR 2014-06-28 00:00:00 Completed [facility] MMR 2014-06-28 00:00:00 Completed [facility] MMR 2014-06-28 00:00:00 Completed [facility] MMR 2014-06-28 00:00:00 Completed [facility] MMR 2014-06-28 00:00:00 Completed [facility] MMR 2014-06-28 00:00:00 Completed [facility] MMR 2014-06-28 00:00:00 Completed [facility] MMR 2014-06-28 00:00:00 Completed [facility] MMR 2014-06-28 00:00:00 Completed [facility] MMR 2014-06-28 00:00:00 Completed [facility] MMR 2014-06-28 00:00:00 Completed [facility] MMR 2014-06-28 00:00:00 Completed [facility] MMR 2014-06-28 00:00:00 Completed [facility] MMR 2014-06-28 00:00:00 Completed [facility] MMR 2014-06-28 00:00:00 Completed [facility] MMR 2014-06-28 00:00:00 Completed [facility] MMR 2014-06-28 00:00:00 Completed [facility] MMR 2014-06-28 00:00:00 Completed [facility] MMR 2014-06-28 00:00:00 Completed [facility] MMR 2014-06-28 00:00:00 Completed [facility] MMR 2014-06-28 00:00:00 Completed [facility] MMR 2014-06-28 00:00:00 Completed [facility] MMR 2014-06-28 00:00:00 Completed [facility] MMR 2014-06-28 00:00:00 Completed [facility] MMR 2014-06-28 00:00:00 Completed [facility] MMR 2014-06-28 00:00:00 Completed [facility] MMR 2014-06-28 00:00:00 Completed [facility] MMR 2014-06-28 00:00:00 Completed [facility] MMR 2014-06-28 00:00:00 Completed [facility] MMR 2014-06-28 00:00:00 Completed [facility] MMR 2014-06-28 00:00:00 Completed [facility] MMR 2014-06-28 00:00:00 Completed [facility] MMR 2014-06-28 00:00:00 Completed [facility] MMR 2014-06-28 00:00:00 Completed [facility] HPV 2014-04-10 00:00:00 Completed [facility] Meningococcal Polysaccharide (groups A, C, Y and W-135) conjugate vaccine (MCV4P) 2014-04-10 00:00:00 Completed [facility] HPV 2014-04-10 00:00:00 Completed [facility] Meningococcal Polysaccharide (groups A, C, Y and W-135) conjugate vaccine (MCV4P) 2014-04-10 00:00:00 Completed [facility] HPV 2014-04-10 00:00:00 Completed [facility] Meningococcal Polysaccharide (groups A, C, Y and W-135) conjugate vaccine (MCV4P) 2014-04-10 00:00:00 Completed [facility] HPV 2014-04-10 00:00:00 Completed [facility] Meningococcal Polysaccharide (groups A, C, Y and W-135) conjugate vaccine (MCV4P) 2014-04-10 00:00:00 Completed [facility] HPV 2014-04-10 00:00:00 Completed [facility] Meningococcal Polysaccharide (groups A, C, Y and W-135) conjugate vaccine (MCV4P) 2014-04-10 00:00:00 Completed [facility] HPV 2014-04-10 00:00:00 Completed [facility] Meningococcal Polysaccharide (groups A, C, Y and W-135) conjugate vaccine (MCV4P) 2014-04-10 00:00:00 Completed [facility] HPV 2014-04-10 00:00:00 Completed [facility] Meningococcal Polysaccharide (groups A, C, Y and W-135) conjugate vaccine (MCV4P) 2014-04-10 00:00:00 Completed [facility] HPV 2014-04-10 00:00:00 Completed [facility] Meningococcal Polysaccharide (groups A, C, Y and W-135) conjugate vaccine (MCV4P) 2014-04-10 00:00:00 Completed [facility] HPV 2014-04-10 00:00:00 Completed [facility] Meningococcal Polysaccharide (groups A, C, Y and W-135) conjugate vaccine (MCV4P) 2014-04-10 00:00:00 Completed [facility] HPV 2014-04-10 00:00:00 Completed [facility] Meningococcal Polysaccharide (groups A, C, Y and W-135) conjugate vaccine (MCV4P) 2014-04-10 00:00:00 Completed [facility] HPV 2014-04-10 00:00:00 Completed [facility] Meningococcal Polysaccharide (groups A, C, Y and W-135) conjugate vaccine (MCV4P) 2014-04-10 00:00:00 Completed [facility] HPV 2014-04-10 00:00:00 Completed [facility] Meningococcal Polysaccharide (groups A, C, Y and W-135) conjugate vaccine (MCV4P) 2014-04-10 00:00:00 Completed [facility] HPV 2014-04-10 00:00:00 Completed [facility] Meningococcal Polysaccharide (groups A, C, Y and W-135) conjugate vaccine (MCV4P) 2014-04-10 00:00:00 Completed [facility] HPV 2014-04-10 00:00:00 Completed [facility] Meningococcal Polysaccharide (groups A, C, Y and W-135) conjugate vaccine (MCV4P) 2014-04-10 00:00:00 Completed [facility] HPV 2014-04-10 00:00:00 Completed [facility] Meningococcal Polysaccharide (groups A, C, Y and W-135) conjugate vaccine (MCV4P) 2014-04-10 00:00:00 Completed [facility] HPV 2014-04-10 00:00:00 Completed [facility] Meningococcal Polysaccharide (groups A, C, Y and W-135) conjugate vaccine (MCV4P) 2014-04-10 00:00:00 Completed [facility] HPV 2014-04-10 00:00:00 Completed [facility] Meningococcal Polysaccharide (groups A, C, Y and W-135) conjugate vaccine (MCV4P) 2014-04-10 00:00:00 Completed [facility] HPV 2014-04-10 00:00:00 Completed [facility] Meningococcal Polysaccharide (groups A, C, Y and W-135) conjugate vaccine (MCV4P) 2014-04-10 00:00:00 Completed [facility] HPV 2014-04-10 00:00:00 Completed [facility] Meningococcal Polysaccharide (groups A, C, Y and W-135) conjugate vaccine (MCV4P) 2014-04-10 00:00:00 Completed [facility] HPV 2014-04-10 00:00:00 Completed [facility] Meningococcal Polysaccharide (groups A, C, Y and W-135) conjugate vaccine (MCV4P) 2014-04-10 00:00:00 Completed [facility] HPV 2014-04-10 00:00:00 Completed [facility] Meningococcal Polysaccharide (groups A, C, Y and W-135) conjugate vaccine (MCV4P) 2014-04-10 00:00:00 Completed [facility] HPV 2014-04-10 00:00:00 Completed [facility] Meningococcal Polysaccharide (groups A, C, Y and W-135) conjugate vaccine (MCV4P) 2014-04-10 00:00:00 Completed [facility] HPV 2014-04-10 00:00:00 Completed [facility] Meningococcal Polysaccharide (groups A, C, Y and W-135) conjugate vaccine (MCV4P) 2014-04-10 00:00:00 Completed [facility] HPV 2014-04-10 00:00:00 Completed [facility] Meningococcal Polysaccharide (groups A, C, Y and W-135) conjugate vaccine (MCV4P) 2014-04-10 00:00:00 Completed [facility] HPV 2014-04-10 00:00:00 Completed [facility] Meningococcal Polysaccharide (groups A, C, Y and W-135) conjugate vaccine (MCV4P) 2014-04-10 00:00:00 Completed [facility] HPV 2014-04-10 00:00:00 Completed [facility] Meningococcal Polysaccharide (groups A, C, Y and W-135) conjugate vaccine (MCV4P) 2014-04-10 00:00:00 Completed [facility] HPV 2014-04-10 00:00:00 Completed [facility] Meningococcal Polysaccharide (groups A, C, Y and W-135) conjugate vaccine (MCV4P) 2014-04-10 00:00:00 Completed [facility] HPV 2014-04-10 00:00:00 Completed [facility] Meningococcal Polysaccharide (groups A, C, Y and W-135) conjugate vaccine (MCV4P) 2014-04-10 00:00:00 Completed [facility] HPV 2014-04-10 00:00:00 Completed [facility] Meningococcal Polysaccharide (groups A, C, Y and W-135) conjugate vaccine (MCV4P) 2014-04-10 00:00:00 Completed [facility] HPV 2014-04-10 00:00:00 Completed [facility] Meningococcal Polysaccharide (groups A, C, Y and W-135) conjugate vaccine (MCV4P) 2014-04-10 00:00:00 Completed [facility] HPV 2014-04-10 00:00:00 Completed [facility] Meningococcal Polysaccharide (groups A, C, Y and W-135) conjugate vaccine (MCV4P) 2014-04-10 00:00:00 Completed [facility] HPV 2014-04-10 00:00:00 Completed [facility] Meningococcal Polysaccharide (groups A, C, Y and W-135) conjugate vaccine (MCV4P) 2014-04-10 00:00:00 Completed [facility] HPV 2014-04-10 00:00:00 Completed [facility] Meningococcal Polysaccharide (groups A, C, Y and W-135) conjugate vaccine (MCV4P) 2014-04-10 00:00:00 Completed [facility] HPV 2014-04-10 00:00:00 Completed [facility] Meningococcal Polysaccharide (groups A, C, Y and W-135) conjugate vaccine (MCV4P) 2014-04-10 00:00:00 Completed [facility] HPV 2014-04-10 00:00:00 Completed [facility] Meningococcal Polysaccharide (groups A, C, Y and W-135) conjugate vaccine (MCV4P) 2014-04-10 00:00:00 Completed [facility] HPV 2014-04-10 00:00:00 Completed [facility] Meningococcal Polysaccharide (groups A, C, Y and W-135) conjugate vaccine (MCV4P) 2014-04-10 00:00:00 Completed [facility] HPV 2014-04-10 00:00:00 Completed [facility] Meningococcal Polysaccharide (groups A, C, Y and W-135) conjugate vaccine (MCV4P) 2014-04-10 00:00:00 Completed [facility] HPV 2014-04-10 00:00:00 Completed [facility] Meningococcal Polysaccharide (groups A, C, Y and W-135) conjugate vaccine (MCV4P) 2014-04-10 00:00:00 Completed [facility] HPV 2014-04-10 00:00:00 Completed [facility] Meningococcal Polysaccharide (groups A, C, Y and W-135) conjugate vaccine (MCV4P) 2014-04-10 00:00:00 Completed [facility] TDAP 2014-03-18 00:00:00 Completed [facility] TDAP 2014-03-18 00:00:00 Completed [facility] TDAP 2014-03-18 00:00:00 Completed [facility] TDAP 2014-03-18 00:00:00 Completed [facility] TDAP 2014-03-18 00:00:00 Completed [facility] TDAP 2014-03-18 00:00:00 Completed [facility] TDAP 2014-03-18 00:00:00 Completed [facility] TDAP 2014-03-18 00:00:00 Completed [facility] TDAP 2014-03-18 00:00:00 Completed [facility] TDAP 2014-03-18 00:00:00 Completed [facility] TDAP 2014-03-18 00:00:00 Completed [facility] TDAP 2014-03-18 00:00:00 Completed [facility] TDAP 2014-03-18 00:00:00 Completed [facility] TDAP 2014-03-18 00:00:00 Completed [facility] TDAP 2014-03-18 00:00:00 Completed [facility] TDAP 2014-03-18 00:00:00 Completed [facility] TDAP 2014-03-18 00:00:00 Completed [facility] TDAP 2014-03-18 00:00:00 Completed [facility] TDAP 2014-03-18 00:00:00 Completed [facility] TDAP 2014-03-18 00:00:00 Completed [facility] TDAP 2014-03-18 00:00:00 Completed [facility] TDAP 2014-03-18 00:00:00 Completed [facility] TDAP 2014-03-18 00:00:00 Completed [facility] TDAP 2014-03-18 00:00:00 Completed [facility] TDAP 2014-03-18 00:00:00 Completed [facility] TDAP 2014-03-18 00:00:00 Completed [facility] TDAP 2014-03-18 00:00:00 Completed [facility] TDAP 2014-03-18 00:00:00 Completed [facility] TDAP 2014-03-18 00:00:00 Completed [facility] TDAP 2014-03-18 00:00:00 Completed [facility] TDAP 2014-03-18 00:00:00 Completed [facility] TDAP 2014-03-18 00:00:[address] [facility] TDAP 2014-03-18 00:00:00 Completed [facility] TDAP 2014-03-18 00:00:00 Completed [facility] TDAP 2014-03-18 00:00:00 Completed [facility] TDAP 2014-03-18 00:00:00 Completed [facility] TDAP 2014-03-18 00:00:00 Completed [facility] TDAP 2014-03-18 00:00:00 Completed [facility] TDAP 2014-03-18 00:00:00 Completed [facility] TDAP 2014-03-18 00:00:00 Completed [facility] TDAP 2014-03-18 00:00:00 Completed [facility] TDAP 2014-03-18 00:00:00 Completed [facility] TDAP 2014-03-18 00:00:00 Completed [facility] TDAP 2014-03-18 00:00:00 Completed [facility] TDAP 2014-03-18 00:00:00 Completed [facility] TDAP 2014-03-18 00:00:00 Completed [facility] TDAP 2014-03-18 00:00:00 Completed [facility] TDAP 2014-03-18 00:00:00 Completed [facility] TDAP 2014-03-18 00:00:00 Completed [facility] TDAP 2014-03-18 00:00:00 Completed [facility] TDAP 2014-03-18 00:00:00 Completed [facility] TDAP 2014-03-18 00:00:00 Completed [facility] TDAP 2014-03-18 00:00:00 Completed [facility] TDAP 2014-03-18 00:00:00 Completed [facility] TDAP 2014-03-18 00:00:[address] [facility] TDAP 2014-03-18 00:00:00 Completed [facility] TDAP 2014-03-18 00:00:00 Completed [facility] TDAP 2014-03-18 00:00:00 Completed [facility] TDAP 2014-03-18 00:00:[address] [facility] TDAP 2014-03-18 00:00:00 Completed [facility] TDAP 2014-03-18 00:00:00 Completed [facility] TDAP 2014-03-18 00:00:00 Completed [facility] TDAP 2014-03-18 00:00:00 Completed [facility] TDAP 2014-03-18 00:00:00 Completed [facility] TDAP 2014-03-18 00:00:00 Completed [facility] TDAP 2014-03-18 00:00:00 Completed [facility] TDAP 2014-03-18 00:00:00 Completed [facility] TDAP 2014-03-18 00:00:00 Completed [facility] TDAP 2014-03-18 00:00:00 Completed [facility] TDAP 2014-03-18 00:00:00 Completed [facility] TDAP 2014-03-18 00:00:00 Completed [facility] TDAP 2014-03-18 00:00:00 Completed [facility] TDAP 2014-03-18 00:00:00 Completed [facility] TDAP 2014-03-18 00:00:00 Completed [facility] TDAP 2014-03-18 00:00:00 Completed [facility] TDAP 2014-03-18 00:00:00 Completed [facility] TDAP 2014-03-18 00:00:00 Completed [facility] TDAP 2014-03-18 00:00:00 Completed [facility] TDAP 2014-03-18 00:00:00 Completed [facility] TDAP 2014-03-18 00:00:00 Completed [facility] TDAP 2014-03-18 00:00:00 Completed [facility] TDAP 2014-03-18 00:00:00 Completed [facility] TDAP 2014-03-18 00:00:00 Completed [facility] TDAP 2014-03-18 00:00:00 Completed [facility] TDAP 2014-03-18 00:00:00 Completed [facility] Influenza Virus Vaccine - Whole 2012-12-21 00:00:00 Completed [facility] HPV 2012-12-21 00:00:00 Completed [facility] Influenza Virus Vaccine - Whole 2012-12-21 00:00:00 Completed [facility] HPV 2012-12-21 00:00:00 Completed [facility] Influenza Virus Vaccine - Whole 2012-12-21 00:00:00 Completed [facility] HPV 2012-12-21 00:00:00 Completed [facility] Influenza Virus Vaccine - Whole 2012-12-21 00:00:00 Completed [facility] HPV 2012-12-21 00:00:00 Completed [facility] Influenza Virus Vaccine - Whole 2012-12-21 00:00:00 Completed [facility] HPV 2012-12-21 00:00:00 Completed [facility] Influenza Virus Vaccine - Whole 2012-12-21 00:00:00 Completed [facility] HPV 2012-12-21 00:00:00 Completed [facility] Influenza Virus Vaccine - Whole 2012-12-21 00:00:00 Completed [facility] HPV 2012-12-21 00:00:00 Completed [facility] Influenza Virus Vaccine - Whole 2012-12-21 00:00:00 Completed [facility] HPV 2012-12-21 00:00:00 Completed [facility] Influenza Virus Vaccine - Whole 2012-12-21 00:00:00 Completed [facility] HPV 2012-12-21 00:00:00 Completed [facility] Influenza Virus Vaccine - Whole 2012-12-21 00:00:00 Completed [facility] HPV 2012-12-21 00:00:00 Completed [facility] Influenza Virus Vaccine - Whole 2012-12-21 00:00:00 Completed [facility] HPV 2012-12-21 00:00:00 Completed [facility] Influenza Virus Vaccine - Whole 2012-12-21 00:00:00 Completed [facility] HPV 2012-12-21 00:00:00 Completed [facility] Influenza Virus Vaccine - Whole 2012-12-21 00:00:00 Completed [facility] HPV 2012-12-21 00:00:00 Completed [facility] Influenza Virus Vaccine - Whole 2012-12-21 00:00:00 Completed [facility] HPV 2012-12-21 00:00:00 Completed [facility] Influenza Virus Vaccine - Whole 2012-12-21 00:00:00 Completed [facility] HPV 2012-12-21 00:00:00 Completed [facility] Influenza Virus Vaccine - Whole 2012-12-21 00:00:00 Completed [facility] HPV 2012-12-21 00:00:00 Completed [facility] Influenza Virus Vaccine - Whole 2012-12-21 00:00:00 Completed [facility] HPV 2012-12-21 00:00:00 Completed [facility] Influenza Virus Vaccine - Whole 2012-12-21 00:00:00 Completed [facility] HPV 2012-12-21 00:00:00 Completed [facility] Influenza Virus Vaccine - Whole 2012-12-21 00:00:00 Completed [facility] HPV 2012-12-21 00:00:00 Completed [facility] Influenza Virus Vaccine - Whole 2012-12-21 00:00:00 Completed [facility] HPV 2012-12-21 00:00:00 Completed [facility] Influenza Virus Vaccine - Whole 2012-12-21 00:00:00 Completed [facility] HPV 2012-12-21 00:00:00 Completed [facility] Influenza Virus Vaccine - Whole 2012-12-21 00:00:00 Completed [facility] HPV 2012-12-21 00:00:00 Completed [facility] Influenza Virus Vaccine - Whole 2012-12-21 00:00:00 Completed [facility] HPV 2012-12-21 00:00:00 Completed [facility] Influenza Virus Vaccine - Whole 2012-12-21 00:00:00 Completed [facility] HPV 2012-12-21 00:00:00 Completed [facility] Influenza Virus Vaccine - Whole 2012-12-21 00:00:00 Completed [facility] HPV 2012-12-21 00:00:00 Completed [facility] Influenza Virus Vaccine - Whole 2012-12-21 00:00:00 Completed [facility] HPV 2012-12-21 00:00:00 Completed [facility] Influenza Virus Vaccine - Whole 2012-12-21 00:00:00 Completed [facility] HPV 2012-12-21 00:00:00 Completed [facility] Influenza Virus Vaccine - Whole 2012-12-21 00:00:00 Completed [facility] HPV 2012-12-21 00:00:00 Completed [facility] Influenza Virus Vaccine - Whole 2012-12-21 00:00:00 Completed [facility] HPV 2012-12-21 00:00:00 Completed [facility] Influenza Virus Vaccine - Whole 2012-12-21 00:00:00 Completed [facility] HPV 2012-12-21 00:00:00 Completed [facility] Influenza Virus Vaccine - Whole 2012-12-21 00:00:00 Completed [facility] HPV 2012-12-21 00:00:00 Completed [facility] Influenza Virus Vaccine - Whole 2012-12-21 00:00:00 Completed [facility] HPV 2012-12-21 00:00:00 Completed [facility] Influenza Virus Vaccine - Whole 2012-12-21 00:00:00 Completed [facility] HPV 2012-12-21 00:00:00 Completed [facility] Influenza Virus Vaccine - Whole 2012-12-21 00:00:00 Completed [facility] HPV 2012-12-21 00:00:00 Completed [facility] Influenza Virus Vaccine - Whole 2012-12-21 00:00:00 Completed [facility] HPV 2012-12-21 00:00:00 Completed [facility] Influenza Virus Vaccine - Whole 2012-12-21 00:00:00 Completed [facility] HPV 2012-12-21 00:00:00 Completed [facility] Influenza Virus Vaccine - Whole 2012-12-21 00:00:00 Completed [facility] HPV 2012-12-21 00:00:00 Completed [facility] Influenza Virus Vaccine - Whole 2012-12-21 00:00:00 Completed [facility] HPV 2012-12-21 00:00:00 Completed [facility] Influenza Virus Vaccine - Whole 2012-12-21 00:00:00 Completed [facility] HPV 2012-12-21 00:00:00 Completed [facility] TDAP 2009-07-22 00:00:00 Completed [facility] HEPATITIS A 2009-07-22 00:00:00 Completed [facility] Meningococcal Polysaccharide (groups A, C, Y and W-135) conjugate vaccine (MCV4P) 2009-07-22 00:00:00 Completed [facility] TDAP 2009-07-22 00:00:00 Completed [facility] HEPATITIS A 2009-07-22 00:00:00 Completed [facility] Meningococcal Polysaccharide (groups A, C, Y and W-135) conjugate vaccine (MCV4P) 2009-07-22 00:00:00 Completed [facility] TDAP 2009-07-22 00:00:00 Completed [facility] HEPATITIS A 2009-07-22 00:00:00 Completed [facility] Meningococcal Polysaccharide (groups A, C, Y and W-135) conjugate vaccine (MCV4P) 2009-07-22 00:00:00 Completed [facility] TDAP 2009-07-22 00:00:00 Completed [facility] HEPATITIS A 2009-07-22 00:00:00 Completed [facility] Meningococcal Polysaccharide (groups A, C, Y and W-135) conjugate vaccine (MCV4P) 2009-07-22 00:00:00 Completed [facility] TDAP 2009-07-22 00:00:00 Completed [facility] HEPATITIS A 2009-07-22 00:00:00 Completed [facility] Meningococcal Polysaccharide (groups A, C, Y and W-135) conjugate vaccine (MCV4P) 2009-07-22 00:00:00 Completed [facility] TDAP 2009-07-22 00:00:00 Completed [facility] HEPATITIS A 2009-07-22 00:00:00 Completed [facility] Meningococcal Polysaccharide (groups A, C, Y and W-135) conjugate vaccine (MCV4P) 2009-07-22 00:00:00 Completed [facility] TDAP 2009-07-22 00:00:00 Completed [facility] HEPATITIS A 2009-07-22 00:00:00 Completed [facility] Meningococcal Polysaccharide (groups A, C, Y and W-135) conjugate vaccine (MCV4P) 2009-07-22 00:00:00 Completed [facility] TDAP 2009-07-22 00:00:00 Completed [facility] HEPATITIS A 2009-07-22 00:00:00 Completed [facility] Meningococcal Polysaccharide (groups A, C, Y and W-135) conjugate vaccine (MCV4P) 2009-07-22 00:00:00 Completed [facility] TDAP 2009-07-22 00:00:00 Completed [facility] HEPATITIS A 2009-07-22 00:00:00 Completed [facility] Meningococcal Polysaccharide (groups A, C, Y and W-135) conjugate vaccine (MCV4P) 2009-07-22 00:00:00 Completed [facility] TDAP 2009-07-22 00:00:00 Completed [facility] HEPATITIS A 2009-07-22 00:00:00 Completed [facility] Meningococcal Polysaccharide (groups A, C, Y and W-135) conjugate vaccine (MCV4P) 2009-07-22 00:00:00 Completed [facility] TDAP 2009-07-22 00:00:00 Completed [facility] HEPATITIS A 2009-07-22 00:00:00 Completed [facility] Meningococcal Polysaccharide (groups A, C, Y and W-135) conjugate vaccine (MCV4P) 2009-07-22 00:00:00 Completed [facility] TDAP 2009-07-22 00:00:00 Completed [facility] HEPATITIS A 2009-07-22 00:00:00 Completed [facility] Meningococcal Polysaccharide (groups A, C, Y and W-135) conjugate vaccine (MCV4P) 2009-07-22 00:00:00 Completed [facility] TDAP 2009-07-22 00:00:00 Completed [facility] HEPATITIS A 2009-07-22 00:00:00 Completed [facility] Meningococcal Polysaccharide (groups A, C, Y and W-135) conjugate vaccine (MCV4P) 2009-07-22 00:00:00 Completed [facility] TDAP 2009-07-22 00:00:00 Completed [facility] HEPATITIS A 2009-07-22 00:00:00 Completed [facility] Meningococcal Polysaccharide (groups A, C, Y and W-135) conjugate vaccine (MCV4P) 2009-07-22 00:00:00 Completed [facility] TDAP 2009-07-22 00:00:00 Completed [facility] HEPATITIS A 2009-07-22 00:00:00 Completed [facility] Meningococcal Polysaccharide (groups A, C, Y and W-135) conjugate vaccine (MCV4P) 2009-07-22 00:00:00 Completed [facility] TDAP 2009-07-22 00:00:00 Completed [facility] HEPATITIS A 2009-07-22 00:00:00 Completed [facility] Meningococcal Polysaccharide (groups A, C, Y and W-135) conjugate vaccine (MCV4P) 2009-07-22 00:00:00 Completed [facility] TDAP 2009-07-22 00:00:00 Completed [facility] HEPATITIS A 2009-07-22 00:00:00 Completed [facility] Meningococcal Polysaccharide (groups A, C, Y and W-135) conjugate vaccine (MCV4P) 2009-07-22 00:00:00 Completed [facility] TDAP 2009-07-22 00:00:00 Completed [facility] HEPATITIS A 2009-07-22 00:00:00 Completed [facility] Meningococcal Polysaccharide (groups A, C, Y and W-135) conjugate vaccine (MCV4P) 2009-07-22 00:00:00 Completed [facility] TDAP 2009-07-22 00:00:00 Completed [facility] HEPATITIS A 2009-07-22 00:00:00 Completed [facility] Meningococcal Polysaccharide (groups A, C, Y and W-135) conjugate vaccine (MCV4P) 2009-07-22 00:00:00 Completed [facility] TDAP 2009-07-22 00:00:00 Completed [facility] HEPATITIS A 2009-07-22 00:00:00 Completed [facility] Meningococcal Polysaccharide (groups A, C, Y and W-135) conjugate vaccine (MCV4P) 2009-07-22 00:00:00 Completed [facility] TDAP 2009-07-22 00:00:00 Completed [facility] HEPATITIS A 2009-07-22 00:00:00 Completed [facility] Meningococcal Polysaccharide (groups A, C, Y and W-135) conjugate vaccine (MCV4P) 2009-07-22 00:00:00 Completed [facility] TDAP 2009-07-22 00:00:00 Completed [facility] HEPATITIS A 2009-07-22 00:00:00 Completed [facility] Meningococcal Polysaccharide (groups A, C, Y and W-135) conjugate vaccine (MCV4P) 2009-07-22 00:00:00 Completed [facility] TDAP 2009-07-22 00:00:00 Completed [facility] HEPATITIS A 2009-07-22 00:00:00 Completed [facility] Meningococcal Polysaccharide (groups A, C, Y and W-135) conjugate vaccine (MCV4P) 2009-07-22 00:00:00 Completed [facility] TDAP 2009-07-22 00:00:00 Completed [facility] HEPATITIS A 2009-07-22 00:00:00 Completed [facility] Meningococcal Polysaccharide (groups A, C, Y and W-135) conjugate vaccine (MCV4P) 2009-07-22 00:00:00 Completed [facility] TDAP 2009-07-22 00:00:00 Completed [facility] HEPATITIS A 2009-07-22 00:00:00 Completed [facility] Meningococcal Polysaccharide (groups A, C, Y and W-135) conjugate vaccine (MCV4P) 2009-07-22 00:00:00 Completed [facility] TDAP 2009-07-22 00:00:00 Completed [facility] HEPATITIS A 2009-07-22 00:00:00 Completed [facility] Meningococcal Polysaccharide (groups A, C, Y and W-135) conjugate vaccine (MCV4P) 2009-07-22 00:00:00 Completed [facility] TDAP 2009-07-22 00:00:00 Completed [facility] HEPATITIS A 2009-07-22 00:00:00 Completed [facility] Meningococcal Polysaccharide (groups A, C, Y and W-135) conjugate vaccine (MCV4P) 2009-07-22 00:00:00 Completed [facility] TDAP 2009-07-22 00:00:00 Completed [facility] HEPATITIS A 2009-07-22 00:00:00 Completed [facility] Meningococcal Polysaccharide (groups A, C, Y and W-135) conjugate vaccine (MCV4P) 2009-07-22 00:00:00 Completed [facility] TDAP 2009-07-22 00:00:00 Completed [facility] HEPATITIS A 2009-07-22 00:00:00 Completed [facility] Meningococcal Polysaccharide (groups A, C, Y and W-135) conjugate vaccine (MCV4P) 2009-07-22 00:00:00 Completed [facility] TDAP 2009-07-22 00:00:00 Completed [facility] HEPATITIS A 2009-07-22 00:00:00 Completed [facility] Meningococcal Polysaccharide (groups A, C, Y and W-135) conjugate vaccine (MCV4P) 2009-07-22 00:00:00 Completed [facility] TDAP 2009-07-22 00:00:00 Completed [facility] HEPATITIS A 2009-07-22 00:00:00 Completed [facility] Meningococcal Polysaccharide (groups A, C, Y and W-135) conjugate vaccine (MCV4P) 2009-07-22 00:00:00 Completed [facility] TDAP 2009-07-22 00:00:00 Completed [facility] HEPATITIS A 2009-07-22 00:00:00 Completed [facility] Meningococcal Polysaccharide (groups A, C, Y and W-135) conjugate vaccine (MCV4P) 2009-07-22 00:00:00 Completed [facility] TDAP 2009-07-22 00:00:00 Completed [facility] HEPATITIS A 2009-07-22 00:00:00 Completed [facility] Meningococcal Polysaccharide (groups A, C, Y and W-135) conjugate vaccine (MCV4P) 2009-07-22 00:00:00 Completed [facility] TDAP 2009-07-22 00:00:00 Completed [facility] HEPATITIS A 2009-07-22 00:00:00 Completed [facility] Meningococcal Polysaccharide (groups A, C, Y and W-135) conjugate vaccine (MCV4P) 2009-07-22 00:00:00 Completed [facility] TDAP 2009-07-22 00:00:00 Completed [facility] HEPATITIS A 2009-07-22 00:00:00 Completed [facility] Meningococcal Polysaccharide (groups A, C, Y and W-135) conjugate vaccine (MCV4P) 2009-07-22 00:00:00 Completed [facility] TDAP 2009-07-22 00:00:00 Completed [facility] HEPATITIS A 2009-07-22 00:00:00 Completed [facility] Meningococcal Polysaccharide (groups A, C, Y and W-135) conjugate vaccine (MCV4P) 2009-07-22 00:00:00 Completed [facility] TDAP 2009-07-22 00:00:00 Completed [facility] HEPATITIS A 2009-07-22 00:00:00 Completed [facility] Meningococcal Polysaccharide (groups A, C, Y and W-135) conjugate vaccine (MCV4P) 2009-07-22 00:00:00 Completed [facility] TDAP 2009-07-22 00:00:00 Completed [facility] HEPATITIS A 2009-07-22 00:00:00 Completed [facility] Meningococcal Polysaccharide (groups A, C, Y and W-135) conjugate vaccine (MCV4P) 2009-07-22 00:00:00 Completed [facility] TDAP 2009-07-22 00:00:00 Completed [facility] HEPATITIS A 2009-07-22 00:00:00 Completed [facility] Meningococcal Polysaccharide (groups A, C, Y and W-135) conjugate vaccine (MCV4P) 2009-07-22 00:00:00 Completed [facility] HEPATITIS A 2008-07-11 00:00:00 Completed [facility] HEPATITIS A 2008-07-11 00:00:00 Completed [facility] HEPATITIS A 2008-07-11 00:00:00 Completed [facility] HEPATITIS A 2008-07-11 00:00:00 Completed [facility] HEPATITIS A 2008-07-11 00:00:00 Completed [facility] HEPATITIS A 2008-07-11 00:00:00 Completed [facility] HEPATITIS A 2008-07-11 00:00:00 Completed [facility] HEPATITIS A 2008-07-11 00:00:00 Completed [facility] HEPATITIS A 2008-07-11 00:00:00 Completed [facility] HEPATITIS A 2008-07-11 00:00:00 Completed [facility] HEPATITIS A 2008-07-11 00:00:00 Completed [facility] HEPATITIS A 2008-07-11 00:00:00 Completed [facility] HEPATITIS A 2008-07-11 00:00:00 Completed [facility] HEPATITIS A 2008-07-11 00:00:00 Completed [facility] HEPATITIS A 2008-07-11 00:00:00 Completed [facility] HEPATITIS A 2008-07-11 00:00:00 Completed [facility] HEPATITIS A 2008-07-11 00:00:00 Completed [facility] HEPATITIS A 2008-07-11 00:00:00 Completed [facility] HEPATITIS A 2008-07-11 00:00:00 Completed [facility] HEPATITIS A 2008-07-11 00:00:00 Completed [facility] HEPATITIS A 2008-07-11 00:00:00 Completed [facility] HEPATITIS A 2008-07-11 00:00:00 Completed [facility] HEPATITIS A 2008-07-11 00:00:00 Completed [facility] HEPATITIS A 2008-07-11 00:00:00 Completed [facility] HEPATITIS A 2008-07-11 00:00:00 Completed [facility] HEPATITIS A 2008-07-11 00:00:00 Completed [facility] HEPATITIS A 2008-07-11 00:00:00 Completed [facility] HEPATITIS A 2008-07-11 00:00:00 Completed [facility] HEPATITIS A 2008-07-11 00:00:00 Completed [facility] HEPATITIS A 2008-07-11 00:00:00 Completed [facility] HEPATITIS A 2008-07-11 00:00:00 Completed [facility] HEPATITIS A 2008-07-11 00:00:00 Completed [facility] HEPATITIS A 2008-07-11 00:00:00 Completed [facility] HEPATITIS A 2008-07-11 00:00:00 Completed [facility] HEPATITIS A 2008-07-11 00:00:00 Completed [facility] HEPATITIS A 2008-07-11 00:00:00 Completed [facility] HEPATITIS A 2008-07-11 00:00:00 Completed [facility] HEPATITIS A 2008-07-11 00:00:00 Completed [facility] HEPATITIS A 2008-07-11 00:00:00 Completed [facility] Varicella (varivax)(chicken pox) 2006-04-29 00:00:00 Completed [facility] Varicella (varivax)(chicken pox) 2006-04-29 00:00:00 Completed [facility] Varicella (varivax)(chicken pox) 2006-04-29 00:00:00 Completed [facility] Varicella (varivax)(chicken pox) 2006-04-29 00:00:00 Completed [facility] Varicella (varivax)(chicken pox) 2006-04-29 00:00:00 Completed [facility] Varicella (varivax)(chicken pox) 2006-04-29 00:00:00 Completed [facility] Varicella (varivax)(chicken pox) 2006-04-29 00:00:00 Completed [facility] Varicella (varivax)(chicken pox) 2006-04-29 00:00:00 Completed [facility] Varicella (varivax)(chicken pox) 2006-04-29 00:00:00 Completed [facility] Varicella (varivax)(chicken pox) 2006-04-29 00:00:00 Completed [facility] Varicella (varivax)(chicken pox) 2006-04-29 00:00:00 Completed [facility] Varicella (varivax)(chicken pox) 2006-04-29 00:00:00 Completed [facility] Varicella (varivax)(chicken pox) 2006-04-29 00:00:00 Completed [facility] Varicella (varivax)(chicken pox) 2006-04-29 00:00:00 Completed [facility] Varicella (varivax)(chicken pox) 2006-04-29 00:00:00 Completed [facility] Varicella (varivax)(chicken pox) 2006-04-29 00:00:00 Completed [facility] Varicella (varivax)(chicken pox) 2006-04-29 00:00:00 Completed [facility] Varicella (varivax)(chicken pox) 2006-04-29 00:00:00 Completed [facility] Varicella (varivax)(chicken pox) 2006-04-29 00:00:00 Completed [facility] Varicella (varivax)(chicken pox) 2006-04-29 00:00:00 Completed [facility] Varicella (varivax)(chicken pox) 2006-04-29 00:00:00 Completed [facility] Varicella (varivax)(chicken pox) 2006-04-29 00:00:00 Completed [facility] Varicella (varivax)(chicken pox) 2006-04-29 00:00:00 Completed [facility] Varicella (varivax)(chicken pox) 2006-04-29 00:00:00 Completed [facility] Varicella (varivax)(chicken pox) 2006-04-29 00:00:00 Completed [facility] Varicella (varivax)(chicken pox) 2006-04-29 00:00:00 Completed [facility] Varicella (varivax)(chicken pox) 2006-04-29 00:00:00 Completed [facility] Varicella (varivax)(chicken pox) 2006-04-29 00:00:00 Completed [facility] Varicella (varivax)(chicken pox) 2006-04-29 00:00:00 Completed [facility] Varicella (varivax)(chicken pox) 2006-04-29 00:00:00 Completed [facility] Varicella (varivax)(chicken pox) 2006-04-29 00:00:00 Completed [facility] Varicella (varivax)(chicken pox) 2006-04-29 00:00:00 Completed [facility] Varicella (varivax)(chicken pox) 2006-04-29 00:00:00 Completed [facility] Varicella (varivax)(chicken pox) 2006-04-29 00:00:00 Completed [facility] Varicella (varivax)(chicken pox) 2006-04-29 00:00:00 Completed [facility] Varicella (varivax)(chicken pox) 2006-04-29 00:00:00 Completed [facility] Varicella (varivax)(chicken pox) 2006-04-29 00:00:00 Completed [facility] Varicella (varivax)(chicken pox) 2006-04-29 00:00:00 Completed [facility] Varicella (varivax)(chicken pox) 2006-04-29 00:00:00 Completed [facility] DTaP, Unspecified Formulation 2002-06-30 00:00:00 Completed [facility] MMR 2002-06-30 00:00:00 Completed [facility] IPV 2002-06-30 00:00:00 Completed [facility] DTaP, Unspecified Formulation 2002-06-30 00:00:00 Completed [facility] MMR 2002-06-30 00:00:00 Completed [facility] IPV 2002-06-30 00:00:00 Completed [facility] DTaP, Unspecified Formulation 2002-06-30 00:00:00 Completed [facility] MMR 2002-06-30 00:00:00 Completed [facility] IPV 2002-06-30 00:00:00 Completed [facility] DTaP, Unspecified Formulation 2002-06-30 00:00:00 Completed [facility] MMR 2002-06-30 00:00:00 Completed [facility] IPV 2002-06-30 00:00:00 Completed [facility] DTaP, Unspecified Formulation 2002-06-30 00:00:00 Completed [facility] MMR 2002-06-30 00:00:00 Completed [facility] IPV 2002-06-30 00:00:00 Completed [facility] DTaP, Unspecified Formulation 2002-06-30 00:00:00 Completed [facility] MMR 2002-06-30 00:00:00 Completed [facility] IPV 2002-06-30 00:00:00 Completed [facility] DTaP, Unspecified Formulation 2002-06-30 00:00:00 Completed [facility] MMR 2002-06-30 00:00:00 Completed [facility] IPV 2002-06-30 00:00:00 Completed [facility] DTaP, Unspecified Formulation 2002-06-30 00:00:00 Completed [facility] MMR 2002-06-30 00:00:00 Completed [facility] IPV 2002-06-30 00:00:00 Completed [facility] DTaP, Unspecified Formulation 2002-06-30 00:00:00 Completed [facility] MMR 2002-06-30 00:00:00 Completed [facility] IPV 2002-06-30 00:00:00 Completed [facility] DTaP, Unspecified Formulation 2002-06-30 00:00:00 Completed [facility] MMR 2002-06-30 00:00:00 Completed [facility] IPV 2002-06-30 00:00:00 Completed [facility] DTaP, Unspecified Formulation 2002-06-30 00:00:00 Completed [facility] MMR 2002-06-30 00:00:00 Completed [facility] IPV 2002-06-30 00:00:00 Completed [facility] DTaP, Unspecified Formulation 2002-06-30 00:00:00 Completed [facility] MMR 2002-06-30 00:00:00 Completed [facility] IPV 2002-06-30 00:00:00 Completed [facility] DTaP, Unspecified Formulation 2002-06-30 00:00:00 Completed [facility] MMR 2002-06-30 00:00:00 Completed [facility] IPV 2002-06-30 00:00:00 Completed [facility] DTaP, Unspecified Formulation 2002-06-30 00:00:00 Completed [facility] MMR 2002-06-30 00:00:00 Completed [facility] IPV 2002-06-30 00:00:00 Completed [facility] DTaP, Unspecified Formulation 2002-06-30 00:00:00 Completed [facility] MMR 2002-06-30 00:00:00 Completed [facility] IPV 2002-06-30 00:00:00 Completed [facility] DTaP, Unspecified Formulation 2002-06-30 00:00:00 Completed [facility] MMR 2002-06-30 00:00:00 Completed [facility] IPV 2002-06-30 00:00:00 Completed [facility] DTaP, Unspecified Formulation 2002-06-30 00:00:00 Completed [facility] MMR 2002-06-30 00:00:00 Completed [facility] IPV 2002-06-30 00:00:00 Completed [facility] DTaP, Unspecified Formulation 2002-06-30 00:00:00 Completed [facility] MMR 2002-06-30 00:00:00 Completed [facility] IPV 2002-06-30 00:00:00 Completed [facility] DTaP, Unspecified Formulation 2002-06-30 00:00:00 Completed [facility] MMR 2002-06-30 00:00:00 Completed [facility] IPV 2002-06-30 00:00:00 Completed [facility] DTaP, Unspecified Formulation 2002-06-30 00:00:00 Completed [facility] MMR 2002-06-30 00:00:00 Completed [facility] IPV 2002-06-30 00:00:00 Completed [facility] DTaP, Unspecified Formulation 2002-06-30 00:00:00 Completed [facility] MMR 2002-06-30 00:00:00 Completed [facility] IPV 2002-06-30 00:00:00 Completed [facility] DTaP, Unspecified Formulation 2002-06-30 00:00:00 Completed [facility] MMR 2002-06-30 00:00:00 Completed [facility] IPV 2002-06-30 00:00:00 Completed [facility] DTaP, Unspecified Formulation 2002-06-30 00:00:00 Completed [facility] MMR 2002-06-30 00:00:00 Completed [facility] IPV 2002-06-30 00:00:00 Completed [facility] DTaP, Unspecified Formulation 2002-06-30 00:00:00 Completed [facility] MMR 2002-06-30 00:00:00 Completed [facility] IPV 2002-06-30 00:00:00 Completed [facility] DTaP, Unspecified Formulation 2002-06-30 00:00:[address] [facility] MMR 2002-06-30 00:00:00 Completed [facility] IPV 2002-06-30 00:00:00 Completed [facility] DTaP, Unspecified Formulation 2002-06-30 00:00:[address] [facility] MMR 2002-06-30 00:00:00 Completed [facility] IPV 2002-06-30 00:00:00 Completed [facility] DTaP, Unspecified Formulation 2002-06-30 00:00:[address] [facility] MMR 2002-06-30 00:00:00 Completed [facility] IPV 2002-06-30 00:00:00 Completed [facility] DTaP, Unspecified Formulation 2002-06-30 00:00:00 Completed [facility] MMR 2002-06-30 00:00:00 Completed [facility] IPV 2002-06-30 00:00:00 Completed [facility] DTaP, Unspecified Formulation 2002-06-30 00:00:00 Completed [facility] MMR 2002-06-30 00:00:00 Completed [facility] IPV 2002-06-30 00:00:00 Completed [facility] DTaP, Unspecified Formulation 2002-06-30 00:00:00 Completed [facility] MMR 2002-06-30 00:00:00 Completed [facility] IPV 2002-06-30 00:00:00 Completed [facility] DTaP, Unspecified Formulation 2002-06-30 00:00:00 Completed [facility] MMR 2002-06-30 00:00:00 Completed [facility] IPV 2002-06-30 00:00:00 Completed [facility] DTaP, Unspecified Formulation 2002-06-30 00:00:00 Completed [facility] MMR 2002-06-30 00:00:00 Completed [facility] IPV 2002-06-30 00:00:00 Completed [facility] DTaP, Unspecified Formulation 2002-06-30 00:00:00 Completed [facility] MMR 2002-06-30 00:00:00 Completed [facility] IPV 2002-06-30 00:00:00 Completed [facility] DTaP, Unspecified Formulation 2002-06-30 00:00:00 Completed [facility] MMR 2002-06-30 00:00:00 Completed [facility] IPV 2002-06-30 00:00:00 Completed [facility] DTaP, Unspecified Formulation 2002-06-30 00:00:00 Completed [facility] MMR 2002-06-30 00:00:00 Completed [facility] IPV 2002-06-30 00:00:00 Completed [facility] DTaP, Unspecified Formulation 2002-06-30 00:00:00 Completed [facility] MMR 2002-06-30 00:00:00 Completed [facility] IPV 2002-06-30 00:00:00 Completed [facility] DTaP, Unspecified Formulation 2002-06-30 00:00:00 Completed [facility] MMR 2002-06-30 00:00:00 Completed [facility] IPV 2002-06-30 00:00:00 Completed [facility] DTaP, Unspecified Formulation 2002-06-30 00:00:00 Completed [facility] MMR 2002-06-30 00:00:00 Completed [facility] IPV 2002-06-30 00:00:00 Completed [facility] DTaP, Unspecified Formulation 2002-06-30 00:00:00 Completed [facility] MMR 2002-06-30 00:00:00 Completed [facility] IPV 2002-06-30 00:00:00 Completed [facility] DTaP, Unspecified Formulation 2000-03-24 00:00:00 Completed [facility] HIB 4 Dose Schedule 2000-03-24 00:00:00 Completed [facility] Pneumococcal 7 Conjugate, PCV7 (Prevnar7) 2000-03-24 00:00:00 Completed [facility] IPV 2000-03-24 00:00:00 Completed [facility] DTaP, Unspecified Formulation 2000-03-24 00:00:00 Completed [facility] HIB 4 Dose Schedule 2000-03-24 00:00:00 Completed [facility] Pneumococcal 7 Conjugate, PCV7 (Prevnar7) 2000-03-24 00:00:00 Completed [facility] IPV 2000-03-24 00:00:00 Completed [facility] DTaP, Unspecified Formulation 2000-03-24 00:00:00 Completed [facility] HIB 4 Dose Schedule 2000-03-24 00:00:00 Completed [facility] Pneumococcal 7 Conjugate, PCV7 (Prevnar7) 2000-03-24 00:00:00 Completed [facility] IPV 2000-03-24 00:00:00 Completed [facility] DTaP, Unspecified Formulation 2000-03-24 00:00:00 Completed [facility] HIB 4 Dose Schedule 2000-03-24 00:00:00 Completed [facility] Pneumococcal 7 Conjugate, PCV7 (Prevnar7) 2000-03-24 00:00:00 Completed [facility] IPV 2000-03-24 00:00:00 Completed [facility] DTaP, Unspecified Formulation 2000-03-24 00:00:00 Completed [facility] HIB 4 Dose Schedule 2000-03-24 00:00:00 Completed [facility] Pneumococcal 7 Conjugate, PCV7 (Prevnar7) 2000-03-24 00:00:00 Completed [facility] IPV 2000-03-24 00:00:00 Completed [facility] DTaP, Unspecified Formulation 2000-03-24 00:00:00 Completed [facility] HIB 4 Dose Schedule 2000-03-24 00:00:00 Completed [facility] Pneumococcal 7 Conjugate, PCV7 (Prevnar7) 2000-03-24 00:00:00 Completed [facility] IPV 2000-03-24 00:00:00 Completed [facility] DTaP, Unspecified Formulation 2000-03-24 00:00:00 Completed [facility] HIB 4 Dose Schedule 2000-03-24 00:00:00 Completed [facility] Pneumococcal 7 Conjugate, PCV7 (Prevnar7) 2000-03-24 00:00:00 Completed [facility] IPV 2000-03-24 00:00:00 Completed [facility] DTaP, Unspecified Formulation 2000-03-24 00:00:00 Completed [facility] HIB 4 Dose Schedule 2000-03-24 00:00:00 Completed [facility] Pneumococcal 7 Conjugate, PCV7 (Prevnar7) 2000-03-24 00:00:00 Completed [facility] IPV 2000-03-24 00:00:00 Completed [facility] DTaP, Unspecified Formulation 2000-03-24 00:00:00 Completed [facility] HIB 4 Dose Schedule 2000-03-24 00:00:00 Completed [facility] Pneumococcal 7 Conjugate, PCV7 (Prevnar7) 2000-03-24 00:00:00 Completed [facility] IPV 2000-03-24 00:00:00 Completed [facility] DTaP, Unspecified Formulation 2000-03-24 00:00:00 Completed [facility] HIB 4 Dose Schedule 2000-03-24 00:00:00 Completed [facility] Pneumococcal 7 Conjugate, PCV7 (Prevnar7) 2000-03-24 00:00:00 Completed [facility] IPV 2000-03-24 00:00:00 Completed [facility] DTaP, Unspecified Formulation 2000-03-24 00:00:00 Completed [facility] HIB 4 Dose Schedule 2000-03-24 00:00:00 Completed [facility] Pneumococcal 7 Conjugate, PCV7 (Prevnar7) 2000-03-24 00:00:00 Completed [facility] IPV 2000-03-24 00:00:00 Completed [facility] DTaP, Unspecified Formulation 2000-03-24 00:00:00 Completed [facility] HIB 4 Dose Schedule 2000-03-24 00:00:00 Completed [facility] Pneumococcal 7 Conjugate, PCV7 (Prevnar7) 2000-03-24 00:00:00 Completed [facility] IPV 2000-03-24 00:00:00 Completed [facility] DTaP, Unspecified Formulation 2000-03-24 00:00:00 Completed [facility] HIB 4 Dose Schedule 2000-03-24 00:00:00 Completed [facility] Pneumococcal 7 Conjugate, PCV7 (Prevnar7) 2000-03-24 00:00:00 Completed [facility] IPV 2000-03-24 00:00:00 Completed [facility] DTaP, Unspecified Formulation 2000-03-24 00:00:00 Completed [facility] HIB 4 Dose Schedule 2000-03-24 00:00:00 Completed [facility] Pneumococcal 7 Conjugate, PCV7 (Prevnar7) 2000-03-24 00:00:00 Completed [facility] IPV 2000-03-24 00:00:00 Completed [facility] DTaP, Unspecified Formulation 2000-03-24 00:00:00 Completed [facility] HIB 4 Dose Schedule 2000-03-24 00:00:00 Completed [facility] Pneumococcal 7 Conjugate, PCV7 (Prevnar7) 2000-03-24 00:00:00 Completed [facility] IPV 2000-03-24 00:00:00 Completed [facility] DTaP, Unspecified Formulation 2000-03-24 00:00:00 Completed [facility] HIB 4 Dose Schedule 2000-03-24 00:00:00 Completed [facility] Pneumococcal 7 Conjugate, PCV7 (Prevnar7) 2000-03-24 00:00:00 Completed [facility] IPV 2000-03-24 00:00:00 Completed [facility] DTaP, Unspecified Formulation 2000-03-24 00:00:00 Completed [facility] HIB 4 Dose Schedule 2000-03-24 00:00:00 Completed [facility] Pneumococcal 7 Conjugate, PCV7 (Prevnar7) 2000-03-24 00:00:00 Completed [facility] IPV 2000-03-24 00:00:00 Completed [facility] DTaP, Unspecified Formulation 2000-03-24 00:00:00 Completed [facility] HIB 4 Dose Schedule 2000-03-24 00:00:00 Completed [facility] Pneumococcal 7 Conjugate, PCV7 (Prevnar7) 2000-03-24 00:00:00 Completed [facility] IPV 2000-03-24 00:00:00 Completed [facility] DTaP, Unspecified Formulation 2000-03-24 00:00:00 Completed [facility] HIB 4 Dose Schedule 2000-03-24 00:00:00 Completed [facility] Pneumococcal 7 Conjugate, PCV7 (Prevnar7) 2000-03-24 00:00:00 Completed [facility] IPV 2000-03-24 00:00:00 Completed [facility] DTaP, Unspecified Formulation 2000-03-24 00:00:00 Completed [facility] HIB 4 Dose Schedule 2000-03-24 00:00:00 Completed [facility] Pneumococcal 7 Conjugate, PCV7 (Prevnar7) 2000-03-24 00:00:00 Completed [facility] IPV 2000-03-24 00:00:00 Completed [facility] DTaP, Unspecified Formulation 2000-03-24 00:00:00 Completed [facility] HIB 4 Dose Schedule 2000-03-24 00:00:00 Completed [facility] Pneumococcal 7 Conjugate, PCV7 (Prevnar7) 2000-03-24 00:00:00 Completed [facility] IPV 2000-03-24 00:00:00 Completed [facility] DTaP, Unspecified Formulation 2000-03-24 00:00:00 Completed [facility] HIB 4 Dose Schedule 2000-03-24 00:00:00 Completed [facility] Pneumococcal 7 Conjugate, PCV7 (Prevnar7) 2000-03-24 00:00:00 Completed [facility] IPV 2000-03-24 00:00:00 Completed [facility] DTaP, Unspecified Formulation 2000-03-24 00:00:00 Completed [facility] HIB 4 Dose Schedule 2000-03-24 00:00:00 Completed [facility] Pneumococcal 7 Conjugate, PCV7 (Prevnar7) 2000-03-24 00:00:00 Completed [facility] IPV 2000-03-24 00:00:00 Completed [facility] DTaP, Unspecified Formulation 2000-03-24 00:00:00 Completed [facility] HIB 4 Dose Schedule 2000-03-24 00:00:00 Completed [facility] Pneumococcal 7 Conjugate, PCV7 (Prevnar7) 2000-03-24 00:00:00 Completed [facility] IPV 2000-03-24 00:00:00 Completed [facility] DTaP, Unspecified Formulation 2000-03-24 00:00:00 Completed [facility] HIB 4 Dose Schedule 2000-03-24 00:00:00 Completed [facility] Pneumococcal 7 Conjugate, PCV7 (Prevnar7) 2000-03-24 00:00:00 Completed [facility] IPV 2000-03-24 00:00:00 Completed [facility] DTaP, Unspecified Formulation 2000-03-24 00:00:00 Completed [facility] HIB 4 Dose Schedule 2000-03-24 00:00:00 Completed [facility] Pneumococcal 7 Conjugate, PCV7 (Prevnar7) 2000-03-24 00:00:00 Completed [facility] IPV 2000-03-24 00:00:00 Completed [facility] DTaP, Unspecified Formulation 2000-03-24 00:00:00 Completed [facility] HIB 4 Dose Schedule 2000-03-24 00:00:00 Completed [facility] Pneumococcal 7 Conjugate, PCV7 (Prevnar7) 2000-03-24 00:00:00 Completed [facility] IPV 2000-03-24 00:00:00 Completed [facility] DTaP, Unspecified Formulation 2000-03-24 00:00:00 Completed [facility] HIB 4 Dose Schedule 2000-03-24 00:00:00 Completed [facility] Pneumococcal 7 Conjugate, PCV7 (Prevnar7) 2000-03-24 00:00:00 Completed [facility] IPV 2000-03-24 00:00:00 Completed [facility] DTaP, Unspecified Formulation 2000-03-24 00:00:00 Completed [facility] HIB 4 Dose Schedule 2000-03-24 00:00:00 Completed [facility] Pneumococcal 7 Conjugate, PCV7 (Prevnar7) 2000-03-24 00:00:00 Completed [facility] IPV 2000-03-24 00:00:00 Completed [facility] DTaP, Unspecified Formulation 2000-03-24 00:00:00 Completed [facility] HIB 4 Dose Schedule 2000-03-24 00:00:00 Completed [facility] Pneumococcal 7 Conjugate, PCV7 (Prevnar7) 2000-03-24 00:00:00 Completed [facility] IPV 2000-03-24 00:00:00 Completed [facility] DTaP, Unspecified Formulation 2000-03-24 00:00:00 Completed [facility] HIB 4 Dose Schedule 2000-03-24 00:00:00 Completed [facility] Pneumococcal 7 Conjugate, PCV7 (Prevnar7) 2000-03-24 00:00:00 Completed [facility] IPV 2000-03-24 00:00:00 Completed [facility] DTaP, Unspecified Formulation 2000-03-24 00:00:00 Completed [facility] HIB 4 Dose Schedule 2000-03-24 00:00:00 Completed [facility] Pneumococcal 7 Conjugate, PCV7 (Prevnar7) 2000-03-24 00:00:00 Completed [facility] IPV 2000-03-24 00:00:00 Completed [facility] DTaP, Unspecified Formulation 2000-03-24 00:00:00 Completed [facility] HIB 4 Dose Schedule 2000-03-24 00:00:00 Completed [facility] Pneumococcal 7 Conjugate, PCV7 (Prevnar7) 2000-03-24 00:00:00 Completed [facility] IPV 2000-03-24 00:00:00 Completed [facility] DTaP, Unspecified Formulation 2000-03-24 00:00:00 Completed [facility] HIB 4 Dose Schedule 2000-03-24 00:00:00 Completed [facility] Pneumococcal 7 Conjugate, PCV7 (Prevnar7) 2000-03-24 00:00:00 Completed [facility] IPV 2000-03-24 00:00:00 Completed [facility] DTaP, Unspecified Formulation 2000-03-24 00:00:00 Completed [facility] HIB 4 Dose Schedule 2000-03-24 00:00:00 Completed [facility] Pneumococcal 7 Conjugate, PCV7 (Prevnar7) 2000-03-24 00:00:00 Completed [facility] IPV 2000-03-24 00:00:00 Completed [facility] DTaP, Unspecified Formulation 2000-03-24 00:00:00 Completed [facility] HIB 4 Dose Schedule 2000-03-24 00:00:00 Completed [facility] Pneumococcal 7 Conjugate, PCV7 (Prevnar7) 2000-03-24 00:00:00 Completed [facility] IPV 2000-03-24 00:00:00 Completed [facility] DTaP, Unspecified Formulation 2000-03-24 00:00:00 Completed [facility] HIB 4 Dose Schedule 2000-03-24 00:00:00 Completed [facility] Pneumococcal 7 Conjugate, PCV7 (Prevnar7) 2000-03-24 00:00:00 Completed [facility] IPV 2000-03-24 00:00:00 Completed [facility] DTaP, Unspecified Formulation 2000-03-24 00:00:00 Completed [facility] HIB 4 Dose Schedule 2000-03-24 00:00:00 Completed [facility] Pneumococcal 7 Conjugate, PCV7 (Prevnar7) 2000-03-24 00:00:00 Completed [facility] IPV 2000-03-24 00:00:00 Completed [facility] DTaP, Unspecified Formulation 2000-03-24 00:00:00 Completed [facility] HIB 4 Dose Schedule 2000-03-24 00:00:00 Completed [facility] Pneumococcal 7 Conjugate, PCV7 (Prevnar7) 2000-03-24 00:00:00 Completed [facility] IPV 2000-03-24 00:00:00 Completed [facility] Varicella (varivax)(chicken pox) 1999-03-11 00:00:00 Completed [facility] Hep B, Adol or Pedi Dosage 1999-03-11 00:00:00 Completed [facility] MMR 1999-03-11 00:00:00 Completed [facility] Varicella (varivax)(chicken pox) 1999-03-11 00:00:00 Completed [facility] Hep B, Adol or Pedi Dosage 1999-03-11 00:00:00 Completed [facility] MMR 1999-03-11 00:00:00 Completed [facility] Varicella (varivax)(chicken pox) 1999-03-11 00:00:00 Completed [facility] Hep B, Adol or Pedi Dosage 1999-03-11 00:00:00 Completed [facility] MMR 1999-03-11 00:00:00 Completed [facility] Varicella (varivax)(chicken pox) 1999-03-11 00:00:00 Completed [facility] Hep B, Adol or Pedi Dosage 1999-03-11 00:00:00 Completed [facility] MMR 1999-03-11 00:00:00 Completed [facility] Varicella (varivax)(chicken pox) 1999-03-11 00:00:00 Completed [facility] Hep B, Adol or Pedi Dosage 1999-03-11 00:00:00 Completed [facility] MMR 1999-03-11 00:00:00 Completed [facility] Varicella (varivax)(chicken pox) 1999-03-11 00:00:00 Completed [facility] Hep B, Adol or Pedi Dosage 1999-03-11 00:00:00 Completed [facility] MMR 1999-03-11 00:00:00 Completed [facility] Varicella (varivax)(chicken pox) 1999-03-11 00:00:00 Completed [facility] Hep B, Adol or Pedi Dosage 1999-03-11 00:00:00 Completed [facility] MMR 1999-03-11 00:00:00 Completed [facility] Varicella (varivax)(chicken pox) 1999-03-11 00:00:00 Completed [facility] Hep B, Adol or Pedi Dosage 1999-03-11 00:00:00 Completed [facility] MMR 1999-03-11 00:00:00 Completed [facility] Varicella (varivax)(chicken pox) 1999-03-11 00:00:00 Completed [facility] Hep B, Adol or Pedi Dosage 1999-03-11 00:00:00 Completed [facility] MMR 1999-03-11 00:00:00 Completed [facility] Varicella (varivax)(chicken pox) 1999-03-11 00:00:00 Completed [facility] Hep B, Adol or Pedi Dosage 1999-03-11 00:00:00 Completed [facility] MMR 1999-03-11 00:00:00 Completed [facility] Varicella (varivax)(chicken pox) 1999-03-11 00:00:00 Completed [facility] Hep B, Adol or Pedi Dosage 1999-03-11 00:00:00 Completed [facility] MMR 1999-03-11 00:00:00 Completed [facility] Varicella (varivax)(chicken pox) 1999-03-11 00:00:00 Completed [facility] Hep B, Adol or Pedi Dosage 1999-03-11 00:00:00 Completed [facility] MMR 1999-03-11 00:00:00 Completed [facility] Varicella (varivax)(chicken pox) 1999-03-11 00:00:00 Completed [facility] Hep B, Adol or Pedi Dosage 1999-03-11 00:00:00 Completed [facility] MMR 1999-03-11 00:00:00 Completed [facility] Varicella (varivax)(chicken pox) 1999-03-11 00:00:00 Completed [facility] Hep B, Adol or Pedi Dosage 1999-03-11 00:00:00 Completed [facility] MMR 1999-03-11 00:00:00 Completed [facility] Varicella (varivax)(chicken pox) 1999-03-11 00:00:00 Completed [facility] Hep B, Adol or Pedi Dosage 1999-03-11 00:00:00 Completed [facility] MMR 1999-03-11 00:00:00 Completed [facility] Varicella (varivax)(chicken pox) 1999-03-11 00:00:00 Completed [facility] Hep B, Adol or Pedi Dosage 1999-03-11 00:00:00 Completed [facility] MMR 1999-03-11 00:00:00 Completed [facility] Varicella (varivax)(chicken pox) 1999-03-11 00:00:00 Completed [facility] Hep B, Adol or Pedi Dosage 1999-03-11 00:00:00 Completed [facility] MMR 1999-03-11 00:00:00 Completed [facility] Varicella (varivax)(chicken pox) 1999-03-11 00:00:00 Completed [facility] Hep B, Adol or Pedi Dosage 1999-03-11 00:00:00 Completed [facility] MMR 1999-03-11 00:00:00 Completed [facility] Varicella (varivax)(chicken pox) 1999-03-11 00:00:00 Completed [facility] Hep B, Adol or Pedi Dosage 1999-03-11 00:00:00 Completed [facility] MMR 1999-03-11 00:00:00 Completed [facility] Varicella (varivax)(chicken pox) 1999-03-11 00:00:00 Completed [facility] Hep B, Adol or Pedi Dosage 1999-03-11 00:00:00 Completed [facility] MMR 1999-03-11 00:00:00 Completed [facility] Varicella (varivax)(chicken pox) 1999-03-11 00:00:00 Completed [facility] Hep B, Adol or Pedi Dosage 1999-03-11 00:00:00 Completed [facility] MMR 1999-03-11 00:00:00 Completed [facility] Varicella (varivax)(chicken pox) 1999-03-11 00:00:00 Completed [facility] Hep B, Adol or Pedi Dosage 1999-03-11 00:00:00 Completed [facility] MMR 1999-03-11 00:00:00 Completed [facility] Varicella (varivax)(chicken pox) 1999-03-11 00:00:00 Completed [facility] Hep B, Adol or Pedi Dosage 1999-03-11 00:00:00 Completed [facility] MMR 1999-03-11 00:00:00 Completed [facility] Varicella (varivax)(chicken pox) 1999-03-11 00:00:00 Completed [facility] Hep B, Adol or Pedi Dosage 1999-03-11 00:00:00 Completed [facility] MMR 1999-03-11 00:00:00 Completed [facility] Varicella (varivax)(chicken pox) 1999-03-11 00:00:00 Completed [facility] Hep B, Adol or Pedi Dosage 1999-03-11 00:00:00 Completed [facility] MMR 1999-03-11 00:00:00 Completed [facility] Varicella (varivax)(chicken pox) 1999-03-11 00:00:00 Completed [facility] Hep B, Adol or Pedi Dosage 1999-03-11 00:00:00 Completed [facility] MMR 1999-03-11 00:00:00 Completed [facility] Varicella (varivax)(chicken pox) 1999-03-11 00:00:00 Completed [facility] Hep B, Adol or Pedi Dosage 1999-03-11 00:00:00 Completed [facility] MMR 1999-03-11 00:00:00 Completed [facility] Varicella (varivax)(chicken pox) 1999-03-11 00:00:00 Completed [facility] Hep B, Adol or Pedi Dosage 1999-03-11 00:00:00 Completed [facility] MMR 1999-03-11 00:00:00 Completed [facility] Varicella (varivax)(chicken pox) 1999-03-11 00:00:00 Completed [facility] Hep B, Adol or Pedi Dosage 1999-03-11 00:00:00 Completed [facility] MMR 1999-03-11 00:00:00 Completed [facility] Varicella (varivax)(chicken pox) 1999-03-11 00:00:00 Completed [facility] Hep B, Adol or Pedi Dosage 1999-03-11 00:00:00 Completed [facility] MMR 1999-03-11 00:00:00 Completed [facility] Varicella (varivax)(chicken pox) 1999-03-11 00:00:00 Completed [facility] Hep B, Adol or Pedi Dosage 1999-03-11 00:00:00 Completed [facility] MMR 1999-03-11 00:00:00 Completed [facility] Varicella (varivax)(chicken pox) 1999-03-11 00:00:00 Completed [facility] Hep B, Adol or Pedi Dosage 1999-03-11 00:00:00 Completed [facility] MMR 1999-03-11 00:00:00 Completed [facility] Varicella (varivax)(chicken pox) 1999-03-11 00:00:00 Completed [facility] Hep B, Adol or Pedi Dosage 1999-03-11 00:00:00 Completed [facility] MMR 1999-03-11 00:00:00 Completed [facility] Varicella (varivax)(chicken pox) 1999-03-11 00:00:00 Completed [facility] Hep B, Adol or Pedi Dosage 1999-03-11 00:00:00 Completed [facility] MMR 1999-03-11 00:00:00 Completed [facility] Varicella (varivax)(chicken pox) 1999-03-11 00:00:00 Completed [facility] Hep B, Adol or Pedi Dosage 1999-03-11 00:00:00 Completed [facility] MMR 1999-03-11 00:00:00 Completed [facility] Varicella (varivax)(chicken pox) 1999-03-11 00:00:00 Completed [facility] Hep B, Adol or Pedi Dosage 1999-03-11 00:00:00 Completed [facility] MMR 1999-03-11 00:00:00 Completed [facility] Varicella (varivax)(chicken pox) 1999-03-11 00:00:00 Completed [facility] Hep B, Adol or Pedi Dosage 1999-03-11 00:00:00 Completed [facility] MMR 1999-03-11 00:00:00 Completed [facility] Varicella (varivax)(chicken pox) 1999-03-11 00:00:00 Completed [facility] Hep B, Adol or Pedi Dosage 1999-03-11 00:00:00 Completed [facility] MMR 1999-03-11 00:00:00 Completed [facility] Varicella (varivax)(chicken pox) 1999-03-11 00:00:00 Completed [facility] Hep B, Adol or Pedi Dosage 1999-03-11 00:00:00 Completed [facility] MMR 1999-03-11 00:00:00 Completed [facility] HIB 4 Dose Schedule 1999-01-10 00:00:00 Completed [facility] HIB 4 Dose Schedule 1999-01-10 00:00:00 Completed [facility] HIB 4 Dose Schedule 1999-01-10 00:00:00 Completed [facility] HIB 4 Dose Schedule 1999-01-10 00:00:00 Completed [facility] HIB 4 Dose Schedule 1999-01-10 00:00:00 Completed [facility] HIB 4 Dose Schedule 1999-01-10 00:00:00 Completed [facility] HIB 4 Dose Schedule 1999-01-10 00:00:00 Completed [facility] HIB 4 Dose Schedule 1999-01-10 00:00:00 Completed [facility] HIB 4 Dose Schedule 1999-01-10 00:00:00 Completed [facility] HIB 4 Dose Schedule 1999-01-10 00:00:00 Completed [facility] HIB 4 Dose Schedule 1999-01-10 00:00:00 Completed [facility] HIB 4 Dose Schedule 1999-01-10 00:00:00 Completed [facility] HIB 4 Dose Schedule 1999-01-10 00:00:00 Completed [facility] HIB 4 Dose Schedule 1999-01-10 00:00:00 Completed [facility] HIB 4 Dose Schedule 1999-01-10 00:00:00 Completed [facility] HIB 4 Dose Schedule 1999-01-10 00:00:00 Completed [facility] HIB 4 Dose Schedule 1999-01-10 00:00:00 Completed [facility] HIB 4 Dose Schedule 1999-01-10 00:00:00 Completed [facility] HIB 4 Dose Schedule 1999-01-10 00:00:00 Completed [facility] HIB 4 Dose Schedule 1999-01-10 00:00:00 Completed [facility] HIB 4 Dose Schedule 1999-01-10 00:00:00 Completed [facility] HIB 4 Dose Schedule 1999-01-10 00:00:00 Completed [facility] HIB 4 Dose Schedule 1999-01-10 00:00:00 Completed [facility] HIB 4 Dose Schedule 1999-01-10 00:00:00 Completed [facility] HIB 4 Dose Schedule 1999-01-10 00:00:00 Completed [facility] HIB 4 Dose Schedule 1999-01-10 00:00:00 Completed [facility] HIB 4 Dose Schedule 1999-01-10 00:00:00 Completed [facility] HIB 4 Dose Schedule 1999-01-10 00:00:00 Completed [facility] HIB 4 Dose Schedule 1999-01-10 00:00:00 Completed [facility] HIB 4 Dose Schedule 1999-01-10 00:00:00 Completed [facility] HIB 4 Dose Schedule 1999-01-10 00:00:00 Completed [facility] HIB 4 Dose Schedule 1999-01-10 00:00:00 Completed [facility] HIB 4 Dose Schedule 1999-01-10 00:00:00 Completed [facility] HIB 4 Dose Schedule 1999-01-10 00:00:00 Completed [facility] HIB 4 Dose Schedule 1999-01-10 00:00:00 Completed [facility] HIB 4 Dose Schedule 1999-01-10 00:00:00 Completed [facility] HIB 4 Dose Schedule 1999-01-10 00:00:00 Completed [facility] HIB 4 Dose Schedule 1999-01-10 00:00:00 Completed [facility] HIB 4 Dose Schedule 1999-01-10 00:00:00 Completed [facility] DTaP, Unspecified Formulation 1998 00:00:00 Completed [facility] HIB 4 Dose Schedule 1998 00:00:00 Completed [facility] DTaP, Unspecified Formulation 1998 00:00:00 Completed [facility] HIB 4 Dose Schedule 1998 00:00:00 Completed [facility] DTaP, Unspecified Formulation 1998 00:00:00 Completed [facility] HIB 4 Dose Schedule 1998 00:00:00 Completed [facility] DTaP, Unspecified Formulation 1998 00:00:00 Completed [facility] HIB 4 Dose Schedule 1998 00:00:00 Completed [facility] DTaP, Unspecified Formulation 1998 00:00:00 Completed [facility] HIB 4 Dose Schedule 1998 00:00:00 Completed [facility] DTaP, Unspecified Formulation 1998 00:00:00 Completed [facility] HIB 4 Dose Schedule 1998 00:00:00 Completed [facility] DTaP, Unspecified Formulation 1998 00:00:00 Completed [facility] HIB 4 Dose Schedule 1998 00:00:00 Completed [facility] DTaP, Unspecified Formulation 1998 00:00:00 Completed [facility] HIB 4 Dose Schedule 1998 00:00:00 Completed [facility] DTaP, Unspecified Formulation 1998 00:00:00 Completed [facility] HIB 4 Dose Schedule 1998 00:00:00 Completed [facility] DTaP, Unspecified Formulation 1998 00:00:00 Completed [facility] HIB 4 Dose Schedule 1998 00:00:00 Completed [facility] DTaP, Unspecified Formulation 1998 00:00:00 Completed [facility] HIB 4 Dose Schedule 1998 00:00:00 Completed [facility] DTaP, Unspecified Formulation 1998 00:00:00 Completed [facility] HIB 4 Dose Schedule 1998 00:00:00 Completed [facility] DTaP, Unspecified Formulation 1998 00:00:00 Completed [facility] HIB 4 Dose Schedule 1998 00:00:00 Completed [facility] DTaP, Unspecified Formulation 1998 00:00:00 Completed [facility] HIB 4 Dose Schedule 1998 00:00:00 Completed [facility] DTaP, Unspecified Formulation 1998 00:00:00 Completed [facility] HIB 4 Dose Schedule 1998 00:00:00 Completed [facility] DTaP, Unspecified Formulation 1998 00:00:00 Completed [facility] HIB 4 Dose Schedule 1998 00:00:00 Completed [facility] DTaP, Unspecified Formulation 1998 00:00:00 Completed [facility] HIB 4 Dose Schedule 1998 00:00:00 Completed [facility] DTaP, Unspecified Formulation 1998 00:00:00 Completed [facility] HIB 4 Dose Schedule 1998 00:00:00 Completed [facility] DTaP, Unspecified Formulation 1998 00:00:00 Completed [facility] HIB 4 Dose Schedule 1998 00:00:00 Completed [facility] DTaP, Unspecified Formulation 1998 00:00:00 Completed [facility] HIB 4 Dose Schedule 1998 00:00:00 Completed [facility] DTaP, Unspecified Formulation 1998 00:00:00 Completed [facility] HIB 4 Dose Schedule 1998 00:00:00 Completed [facility] DTaP, Unspecified Formulation 1998 00:00:00 Completed [facility] HIB 4 Dose Schedule 1998 00:00:00 Completed [facility] DTaP, Unspecified Formulation 1998 00:00:00 Completed [facility] HIB 4 Dose Schedule 1998 00:00:00 Completed [facility] DTaP, Unspecified Formulation 1998 00:00:00 Completed [facility] HIB 4 Dose Schedule 1998 00:00:00 Completed [facility] DTaP, Unspecified Formulation 1998 00:00:00 Completed [facility] HIB 4 Dose Schedule 1998 00:00:00 Completed [facility] DTaP, Unspecified Formulation 1998 00:00:00 Completed [facility] HIB 4 Dose Schedule 1998 00:00:00 Completed [facility] DTaP, Unspecified Formulation 1998 00:00:00 Completed [facility] HIB 4 Dose Schedule 1998 00:00:00 Completed [facility] DTaP, Unspecified Formulation 1998 00:00:00 Completed [facility] HIB 4 Dose Schedule 1998 00:00:00 Completed [facility] DTaP, Unspecified Formulation 1998 00:00:00 Completed [facility] HIB 4 Dose Schedule 1998 00:00:00 Completed [facility] DTaP, Unspecified Formulation 1998 00:00:00 Completed [facility] HIB 4 Dose Schedule 1998 00:00:00 Completed [facility] DTaP, Unspecified Formulation 1998 00:00:00 Completed [facility] HIB 4 Dose Schedule 1998 00:00:00 Completed [facility] DTaP, Unspecified Formulation 1998 00:00:00 Completed [facility] HIB 4 Dose Schedule 1998 00:00:00 Completed [facility] DTaP, Unspecified Formulation 1998 00:00:00 Completed [facility] HIB 4 Dose Schedule 1998 00:00:00 Completed [facility] DTaP, Unspecified Formulation 1998 00:00:00 Completed [facility] HIB 4 Dose Schedule 1998 00:00:00 Completed [facility] DTaP, Unspecified Formulation 1998 00:00:00 Completed [facility] HIB 4 Dose Schedule 1998 00:00:00 Completed [facility] DTaP, Unspecified Formulation 1998 00:00:00 Completed [facility] HIB 4 Dose Schedule 1998 00:00:00 Completed [facility] DTaP, Unspecified Formulation 1998 00:00:00 Completed [facility] HIB 4 Dose Schedule 1998 00:00:00 Completed [facility] DTaP, Unspecified Formulation 1998 00:00:00 Completed [facility] HIB 4 Dose Schedule 1998 00:00:00 Completed [facility] DTaP, Unspecified Formulation 1998 00:00:00 Completed [facility] HIB 4 Dose Schedule 1998 00:00:00 Completed [facility] DTaP, Unspecified Formulation 1998 00:00:00 Completed [facility] Hep B, Adol or Pedi Dosage 1998 00:00:00 Completed [facility] HIB 4 Dose Schedule 1998 00:00:00 Completed [facility] IPV 1998 00:00:00 Completed [facility] DTaP, Unspecified Formulation 1998 00:00:00 Completed [facility] Hep B, Adol or Pedi Dosage 1998 00:00:00 Completed [facility] HIB 4 Dose Schedule 1998 00:00:00 Completed [facility] IPV 1998 00:00:00 Completed [facility] DTaP, Unspecified Formulation 1998 00:00:00 Completed [facility] Hep B, Adol or Pedi Dosage 1998 00:00:00 Completed [facility] HIB 4 Dose Schedule 1998 00:00:00 Completed [facility] IPV 1998 00:00:00 Completed [facility] DTaP, Unspecified Formulation 1998 00:00:00 Completed [facility] Hep B, Adol or Pedi Dosage 1998 00:00:00 Completed [facility] HIB 4 Dose Schedule 1998 00:00:00 Completed [facility] IPV 1998 00:00:00 Completed [facility] DTaP, Unspecified Formulation 1998 00:00:00 Completed [facility] Hep B, Adol or Pedi Dosage 1998 00:00:00 Completed [facility] HIB 4 Dose Schedule 1998 00:00:00 Completed [facility] IPV 1998 00:00:00 Completed [facility] DTaP, Unspecified Formulation 1998 00:00:00 Completed [facility] Hep B, Adol or Pedi Dosage 1998 00:00:00 Completed [facility] HIB 4 Dose Schedule 1998 00:00:00 Completed [facility] IPV 1998 00:00:00 Completed [facility] DTaP, Unspecified Formulation 1998 00:00:00 Completed [facility] Hep B, Adol or Pedi Dosage 1998 00:00:00 Completed [facility] HIB 4 Dose Schedule 1998 00:00:00 Completed [facility] IPV 1998 00:00:00 Completed [facility] DTaP, Unspecified Formulation 1998 00:00:00 Completed [facility] Hep B, Adol or Pedi Dosage 1998 00:00:00 Completed [facility] HIB 4 Dose Schedule 1998 00:00:00 Completed [facility] IPV 1998 00:00:00 Completed [facility] DTaP, Unspecified Formulation 1998 00:00:00 Completed [facility] Hep B, Adol or Pedi Dosage 1998 00:00:00 Completed [facility] HIB 4 Dose Schedule 1998 00:00:00 Completed [facility] IPV 1998 00:00:00 Completed [facility] DTaP, Unspecified Formulation 1998 00:00:00 Completed [facility] Hep B, Adol or Pedi Dosage 1998 00:00:00 Completed [facility] HIB 4 Dose Schedule 1998 00:00:00 Completed [facility] IPV 1998 00:00:00 Completed [facility] DTaP, Unspecified Formulation 1998 00:00:00 Completed [facility] Hep B, Adol or Pedi Dosage 1998 00:00:00 Completed [facility] HIB 4 Dose Schedule 1998 00:00:00 Completed [facility] IPV 1998 00:00:00 Completed [facility] DTaP, Unspecified Formulation 1998 00:00:00 Completed [facility] Hep B, Adol or Pedi Dosage 1998 00:00:00 Completed [facility] HIB 4 Dose Schedule 1998 00:00:00 Completed [facility] IPV 1998 00:00:00 Completed [facility] DTaP, Unspecified Formulation 1998 00:00:00 Completed [facility] Hep B, Adol or Pedi Dosage 1998 00:00:00 Completed [facility] HIB 4 Dose Schedule 1998 00:00:00 Completed [facility] IPV 1998 00:00:00 Completed [facility] DTaP, Unspecified Formulation 1998 00:00:00 Completed [facility] Hep B, Adol or Pedi Dosage 1998 00:00:00 Completed [facility] HIB 4 Dose Schedule 1998 00:00:00 Completed [facility] IPV 1998 00:00:00 Completed [facility] DTaP, Unspecified Formulation 1998 00:00:00 Completed [facility] Hep B, Adol or Pedi Dosage 1998 00:00:00 Completed [facility] HIB 4 Dose Schedule 1998 00:00:00 Completed [facility] IPV 1998 00:00:00 Completed [facility] DTaP, Unspecified Formulation 1998 00:00:00 Completed [facility] Hep B, Adol or Pedi Dosage 1998 00:00:00 Completed [facility] HIB 4 Dose Schedule 1998 00:00:00 Completed [facility] IPV 1998 00:00:00 Completed [facility] DTaP, Unspecified Formulation 1998 00:00:00 Completed [facility] Hep B, Adol or Pedi Dosage 1998 00:00:00 Completed [facility] HIB 4 Dose Schedule 1998 00:00:00 Completed [facility] IPV 1998 00:00:00 Completed [facility] DTaP, Unspecified Formulation 1998 00:00:00 Completed [facility] Hep B, Adol or Pedi Dosage 1998 00:00:00 Completed [facility] HIB 4 Dose Schedule 1998 00:00:00 Completed [facility] IPV 1998 00:00:00 Completed [facility] DTaP, Unspecified Formulation 1998 00:00:00 Completed [facility] Hep B, Adol or Pedi Dosage 1998 00:00:00 Completed [facility] HIB 4 Dose Schedule 1998 00:00:00 Completed [facility] IPV 1998 00:00:00 Completed [facility] DTaP, Unspecified Formulation 1998 00:00:00 Completed [facility] Hep B, Adol or Pedi Dosage 1998 00:00:00 Completed [facility] HIB 4 Dose Schedule 1998 00:00:00 Completed [facility] IPV 1998 00:00:00 Completed [facility] DTaP, Unspecified Formulation 1998 00:00:00 Completed [facility] Hep B, Adol or Pedi Dosage 1998 00:00:00 Completed [facility] HIB 4 Dose Schedule 1998 00:00:00 Completed [facility] IPV 1998 00:00:00 Completed [facility] DTaP, Unspecified Formulation 1998 00:00:00 Completed [facility] Hep B, Adol or Pedi Dosage 1998 00:00:00 Completed [facility] HIB 4 Dose Schedule 1998 00:00:00 Completed [facility] IPV 1998 00:00:00 Completed [facility] DTaP, Unspecified Formulation 1998 00:00:00 Completed [facility] Hep B, Adol or Pedi Dosage 1998 00:00:00 Completed [facility] HIB 4 Dose Schedule 1998 00:00:00 Completed [facility] IPV 1998 00:00:00 Completed [facility] DTaP, Unspecified Formulation 1998 00:00:00 Completed [facility] Hep B, Adol or Pedi Dosage 1998 00:00:00 Completed [facility] HIB 4 Dose Schedule 1998 00:00:00 Completed [facility] IPV 1998 00:00:00 Completed [facility] DTaP, Unspecified Formulation 1998 00:00:00 Completed [facility] Hep B, Adol or Pedi Dosage 1998 00:00:00 Completed [facility] HIB 4 Dose Schedule 1998 00:00:00 Completed [facility] IPV 1998 00:00:00 Completed [facility] DTaP, Unspecified Formulation 1998 00:00:00 Completed [facility] Hep B, Adol or Pedi Dosage 1998 00:00:00 Completed [facility] HIB 4 Dose Schedule 1998 00:00:00 Completed [facility] IPV 1998 00:00:00 Completed [facility] DTaP, Unspecified Formulation 1998 00:00:00 Completed [facility] Hep B, Adol or Pedi Dosage 1998 00:00:00 Completed [facility] HIB 4 Dose Schedule 1998 00:00:00 Completed [facility] IPV 1998 00:00:00 Completed [facility] DTaP, Unspecified Formulation 1998 00:00:00 Completed [facility] Hep B, Adol or Pedi Dosage 1998 00:00:00 Completed [facility] HIB 4 Dose Schedule 1998 00:00:00 Completed [facility] IPV 1998 00:00:00 Completed [facility] DTaP, Unspecified Formulation 1998 00:00:00 Completed [facility] Hep B, Adol or Pedi Dosage 1998 00:00:00 Completed [facility] HIB 4 Dose Schedule 1998 00:00:00 Completed [facility] IPV 1998 00:00:00 Completed [facility] DTaP, Unspecified Formulation 1998 00:00:00 Completed [facility] Hep B, Adol or Pedi Dosage 1998 00:00:00 Completed [facility] HIB 4 Dose Schedule 1998 00:00:00 Completed [facility] IPV 1998 00:00:00 Completed [facility] DTaP, Unspecified Formulation 1998 00:00:00 Completed [facility] Hep B, Adol or Pedi Dosage 1998 00:00:00 Completed [facility] HIB 4 Dose Schedule 1998 00:00:00 Completed [facility] IPV 1998 00:00:00 Completed [facility] DTaP, Unspecified Formulation 1998 00:00:00 Completed [facility] Hep B, Adol or Pedi Dosage 1998 00:00:00 Completed [facility] HIB 4 Dose Schedule 1998 00:00:00 Completed [facility] IPV 1998 00:00:00 Completed [facility] DTaP, Unspecified Formulation 1998 00:00:00 Completed [facility] Hep B, Adol or Pedi Dosage 1998 00:00:00 Completed [facility] HIB 4 Dose Schedule 1998 00:00:00 Completed [facility] IPV 1998 00:00:00 Completed [facility] DTaP, Unspecified Formulation 1998 00:00:00 Completed [facility] Hep B, Adol or Pedi Dosage 1998 00:00:00 Completed [facility] HIB 4 Dose Schedule 1998 00:00:00 Completed [facility] IPV 1998 00:00:00 Completed [facility] DTaP, Unspecified Formulation 1998 00:00:00 Completed [facility] Hep B, Adol or Pedi Dosage 1998 00:00:00 Completed [facility] HIB 4 Dose Schedule 1998 00:00:00 Completed [facility] IPV 1998 00:00:00 Completed [facility] DTaP, Unspecified Formulation 1998 00:00:00 Completed [facility] Hep B, Adol or Pedi Dosage 1998 00:00:00 Completed [facility] HIB 4 Dose Schedule 1998 00:00:00 Completed [facility] IPV 1998 00:00:00 Completed [facility] DTaP, Unspecified Formulation 1998 00:00:00 Completed [facility] Hep B, Adol or Pedi Dosage 1998 00:00:00 Completed [facility] HIB 4 Dose Schedule 1998 00:00:00 Completed [facility] IPV 1998 00:00:00 Completed [facility] DTaP, Unspecified Formulation 1998 00:00:00 Completed [facility] Hep B, Adol or Pedi Dosage 1998 00:00:00 Completed [facility] HIB 4 Dose Schedule 1998 00:00:00 Completed [facility] IPV 1998 00:00:00 Completed [facility] DTaP, Unspecified Formulation 1998 00:00:00 Completed [facility] Hep B, Adol or Pedi Dosage 1998 00:00:00 Completed [facility] HIB 4 Dose Schedule 1998 00:00:00 Completed [facility] IPV 1998 00:00:00 Completed [facility] DTaP, Unspecified Formulation 1998 00:00:00 Completed [facility] IPV 1998 00:00:00 Completed [facility] DTaP, Unspecified Formulation 1998 00:00:00 Completed [facility] IPV 1998 00:00:00 Completed [facility] DTaP, Unspecified Formulation 1998 00:00:00 Completed [facility] IPV 1998 00:00:[address] [facility] DTaP, Unspecified Formulation 1998 00:00:00 Completed [facility] IPV 1998 00:00:[address] [facility] DTaP, Unspecified Formulation 1998 00:00:[address] [facility] IPV 1998 00:00:[address] [facility] DTaP, Unspecified Formulation 1998 00:00:[address] [facility] IPV 1998 00:00:[address] [facility] DTaP, Unspecified Formulation 1998 00:00:00 Completed [facility] IPV 1998 00:00:00 Completed [facility] DTaP, Unspecified Formulation 1998 00:00:00 Completed [facility] IPV 1998 00:00:00 Completed [facility] DTaP, Unspecified Formulation 1998 00:00:00 Completed [facility] IPV 1998 00:00:00 Completed [facility] DTaP, Unspecified Formulation 1998 00:00:00 Completed [facility] IPV 1998 00:00:00 Completed [facility] DTaP, Unspecified Formulation 1998 00:00:00 Completed [facility] IPV 1998 00:00:00 Completed [facility] DTaP, Unspecified Formulation 1998 00:00:00 Completed [facility] IPV 1998 00:00:00 Completed [facility] DTaP, Unspecified Formulation 1998 00:00:00 Completed [facility] IPV 1998 00:00:00 Completed [facility] DTaP, Unspecified Formulation 1998 00:00:00 Completed [facility] IPV 1998 00:00:[address] [facility] DTaP, Unspecified Formulation 1998 00:00:00 Completed [facility] IPV 1998 00:00:00 Completed [facility] DTaP, Unspecified Formulation 1998 00:00:00 Completed [facility] IPV 1998 00:00:00 Completed [facility] DTaP, Unspecified Formulation 1998 00:00:00 Completed [facility] IPV 1998 00:00:00 Completed [facility] DTaP, Unspecified Formulation 1998 00:00:00 Completed [facility] IPV 1998 00:00:00 Completed [facility] DTaP, Unspecified Formulation 1998 00:00:00 Completed [facility] IPV 1998 00:00:00 Completed [facility] DTaP, Unspecified Formulation 1998 00:00:00 Completed [facility] IPV 1998 00:00:00 Completed [facility] DTaP, Unspecified Formulation 1998 00:00:00 Completed [facility] IPV 1998 00:00:00 Completed [facility] DTaP, Unspecified Formulation 1998 00:00:00 Completed [facility] IPV 1998 00:00:00 Completed [facility] DTaP, Unspecified Formulation 1998 00:00:00 Completed [facility] IPV 1998 00:00:00 Completed [facility] DTaP, Unspecified Formulation 1998 00:00:00 Completed [facility] IPV 1998 00:00:00 Completed [facility] DTaP, Unspecified Formulation 1998 00:00:00 Completed [facility] IPV 1998 00:00:00 Completed [facility] DTaP, Unspecified Formulation 1998 00:00:00 Completed [facility] IPV 1998 00:00:00 Completed [facility] DTaP, Unspecified Formulation 1998 00:00:00 Completed [facility] IPV 1998 00:00:00 Completed [facility] DTaP, Unspecified Formulation 1998 00:00:00 Completed [facility] IPV 1998 00:00:00 Completed [facility] DTaP, Unspecified Formulation 1998 00:00:00 Completed [facility] IPV 1998 00:00:00 Completed [facility] DTaP, Unspecified Formulation 1998 00:00:00 Completed [facility] IPV 1998 00:00:[address] [facility] DTaP, Unspecified Formulation 1998 00:00:00 Completed [facility] IPV 1998 00:00:00 Completed [facility] DTaP, Unspecified Formulation 1998 00:00:00 Completed [facility] IPV 1998 00:00:00 Completed [facility] DTaP, Unspecified Formulation 1998 00:00:00 Completed [facility] IPV 1998 00:00:00 Completed [facility] DTaP, Unspecified Formulation 1998 00:00:00 Completed [facility] IPV 1998 00:00:00 Completed [facility] DTaP, Unspecified Formulation 1998 00:00:00 Completed [facility] IPV 1998 00:00:00 Completed [facility] DTaP, Unspecified Formulation 1998 00:00:00 Completed [facility] IPV 1998 00:00:00 Completed [facility] DTaP, Unspecified Formulation 1998 00:00:00 Completed [facility] IPV 1998 00:00:00 Completed [facility] DTaP, Unspecified Formulation 1998 00:00:00 Completed [facility] IPV 1998 00:00:00 Completed [facility] DTaP, Unspecified Formulation 1998 00:00:00 Completed [facility] IPV 1998 00:00:00 Completed [facility] Hep B, Adol or Pedi Dosage 1998 00:00:00 Completed [facility] Hep B, Adol or Pedi Dosage 1998 00:00:00 Completed [facility] Hep B, Adol or Pedi Dosage 1998 00:00:00 Completed [facility] Hep B, Adol or Pedi Dosage 1998 00:00:00 Completed [facility] Hep B, Adol or Pedi Dosage 1998 00:00:00 Completed [facility] Hep B, Adol or Pedi Dosage 1998 00:00:00 Completed [facility] Hep B, Adol or Pedi Dosage 1998 00:00:00 Completed [facility] Hep B, Adol or Pedi Dosage 1998 00:00:00 Completed [facility] Hep B, Adol or Pedi Dosage 1998 00:00:00 Completed [facility] Hep B, Adol or Pedi Dosage 1998 00:00:00 Completed [facility] Hep B, Adol or Pedi Dosage 1998 00:00:00 Completed [facility] Hep B, Adol or Pedi Dosage 1998 00:00:00 Completed [facility] Hep B, Adol or Pedi Dosage 1998 00:00:00 Completed [facility] Hep B, Adol or Pedi Dosage 1998 00:00:00 Completed [facility] Hep B, Adol or Pedi Dosage 1998 00:00:00 Completed [facility] Hep B, Adol or Pedi Dosage 1998 00:00:00 Completed [facility] Hep B, Adol or Pedi Dosage 1998 00:00:00 Completed [facility] Hep B, Adol or Pedi Dosage 1998 00:00:00 Completed [facility] Hep B, Adol or Pedi Dosage 1998 00:00:00 Completed [facility] Hep B, Adol or Pedi Dosage 1998 00:00:00 Completed [facility] Hep B, Adol or Pedi Dosage 1998 00:00:00 Completed [facility] Hep B, Adol or Pedi Dosage 1998 00:00:00 Completed [facility] Hep B, Adol or Pedi Dosage 1998 00:00:00 Completed [facility] Hep B, Adol or Pedi Dosage 1998 00:00:00 Completed [facility] Hep B, Adol or Pedi Dosage 1998 00:00:00 Completed [facility] Hep B, Adol or Pedi Dosage 1998 00:00:00 Completed [facility] Hep B, Adol or Pedi Dosage 1998 00:00:00 Completed [facility] Hep B, Adol or Pedi Dosage 1998 00:00:00 Completed [facility] Hep B, Adol or Pedi Dosage 1998 00:00:00 Completed [facility] Hep B, Adol or Pedi Dosage 1998 00:00:00 Completed [facility] Hep B, Adol or Pedi Dosage 1998 00:00:00 Completed [facility] Hep B, Adol or Pedi Dosage 1998 00:00:00 Completed [facility] Hep B, Adol or Pedi Dosage 1998 00:00:00 Completed [facility] Hep B, Adol or Pedi Dosage 1998 00:00:00 Completed [facility] Hep B, Adol or Pedi Dosage 1998 00:00:00 Completed [facility] Hep B, Adol or Pedi Dosage 1998 00:00:00 Completed [facility] Hep B, Adol or Pedi Dosage 1998 00:00:00 Completed [facility] Hep B, Adol or Pedi Dosage 1998 00:00:00 Completed [facility] Hep B, Adol or Pedi Dosage 1998 00:00:00 Completed [facility] TDAP Unknown Completed [facility] MMR Unknown Completed [facility] HPV9 Unknown Completed [facility] HPV9 Unknown Completed [facility] HPV9 Unknown Completed [facility] Influenza Virus Vaccine Quad IM 3+ YRS Unknown Completed [facility] SARS-COV-2 COVID-19 PFIZER VACCINE Unknown Completed [facility] SARS-COV-2 COVID-19 PFIZER VACCINE Unknown Completed [facility] Influenza Virus Vaccine Quad IM, Preserv and ABX Free 6 MO-64 YRS (FLUCELVAX) Unknown Completed [facility] DTaP, Unspecified Formulation Unknown Completed [facility] DTaP, Unspecified Formulation Unknown Completed [facility] DTaP, Unspecified Formulation Unknown Completed [facility] DTaP, Unspecified Formulation Unknown Completed [facility] DTaP, Unspecified Formulation Unknown Completed [facility] Influenza Virus Vaccine - Whole Unknown Completed [facility] HEPATITIS A Unknown Completed [facility] HEPATITIS A Unknown Completed [facility] Hep B, Adol or Pedi Dosage Unknown Completed [facility] Hep B, Adol or Pedi Dosage Unknown Completed [facility] Hep B, Adol or Pedi Dosage Unknown Completed [facility] HIB 4 Dose Schedule Unknown Completed [facility] HIB 4 Dose Schedule Unknown Completed [facility] HIB 4 Dose Schedule Unknown Completed [facility] HIB 4 Dose Schedule Unknown Completed [facility] HPV Unknown Completed [facility] HPV Unknown Completed [facility] Meningococcal Polysaccharide (groups A, C, Y and W-135) conjugate vaccine (MCV4P) Unknown Completed [facility] Meningococcal Polysaccharide (groups A, C, Y and W-135) conjugate vaccine (MCV4P) Unknown Completed [facility] MMR Unknown Completed [facility] MMR Unknown Completed [facility] Pneumococcal 7 Conjugate, PCV7 (Prevnar7) Unknown Completed [facility] IPV Unknown Completed [facility] IPV Unknown Completed [facility] IPV Unknown Completed [facility] IPV Unknown Completed [facility] TDAP Unknown Completed [facility] Varicella (varivax)(chicken pox) Unknown Completed [facility] Varicella (varivax)(chicken pox) Unknown Completed [facility] TDAP Unknown Completed [facility] MMR Unknown Completed [facility] HPV9 Unknown Completed [facility] HPV9 Unknown Completed [facility] HPV9 Unknown Completed [facility] Influenza Virus Vaccine Quad IM 3+ YRS Unknown Completed [facility] SARS-COV-2 COVID-19 PFIZER VACCINE Unknown Completed [facility] SARS-COV-2 COVID-19 PFIZER VACCINE Unknown Completed [facility] Influenza Virus Vaccine Quad IM, Preserv and ABX Free 6 MO-64 YRS (FLUCELVAX) Unknown Completed [facility] DTaP, Unspecified Formulation Unknown Completed [facility] DTaP, Unspecified Formulation Unknown Completed [facility] DTaP, Unspecified Formulation Unknown Completed [facility] DTaP, Unspecified Formulation Unknown Completed [facility] DTaP, Unspecified Formulation Unknown Completed [facility] Influenza Virus Vaccine - Whole Unknown Completed [facility] HEPATITIS A Unknown Completed [facility] HEPATITIS A Unknown Completed [facility] Hep B, Adol or Pedi Dosage Unknown Completed [facility] Hep B, Adol or Pedi Dosage Unknown Completed [facility] Hep B, Adol or Pedi Dosage Unknown Completed [facility] HIB 4 Dose Schedule Unknown Completed [facility] HIB 4 Dose Schedule Unknown Completed [facility] HIB 4 Dose Schedule Unknown Completed [facility] HIB 4 Dose Schedule Unknown Completed [facility] HPV Unknown Completed [facility] HPV Unknown Completed [facility] Meningococcal Polysaccharide (groups A, C, Y and W-135) conjugate vaccine (MCV4P) Unknown Completed [facility] Meningococcal Polysaccharide (groups A, C, Y and W-135) conjugate vaccine (MCV4P) Unknown Completed [facility] MMR Unknown Completed [facility] MMR Unknown Completed [facility] Pneumococcal 7 Conjugate, PCV7 (Prevnar7) Unknown Completed [facility] IPV Unknown Completed [facility] IPV Unknown Completed [facility] IPV Unknown Completed [facility] IPV Unknown Completed [facility] TDAP Unknown Completed [facility] Varicella (varivax)(chicken pox) Unknown Completed [facility] Varicella (varivax)(chicken pox) Unknown Completed [facility] TDAP Unknown Completed [facility] MMR Unknown Completed [facility] HPV9 Unknown Completed [facility] HPV9 Unknown Completed [facility] HPV9 Unknown Completed [facility] Influenza Virus Vaccine Quad IM 3+ YRS Unknown Completed [facility] SARS-COV-2 COVID-19 PFIZER VACCINE Unknown Completed [facility] SARS-COV-2 COVID-19 PFIZER VACCINE Unknown Completed [facility] DTaP, Unspecified Formulation Unknown Completed [facility] DTaP, Unspecified Formulation Unknown Completed [facility] DTaP, Unspecified Formulation Unknown Completed [facility] DTaP, Unspecified Formulation Unknown Completed [facility] DTaP, Unspecified Formulation Unknown Completed [facility] Influenza Virus Vaccine - Whole Unknown Completed [facility] HEPATITIS A Unknown Completed [facility] HEPATITIS A Unknown Completed [facility] Hep B, Adol or Pedi Dosage Unknown Completed [facility] Hep B, Adol or Pedi Dosage Unknown Completed [facility] Hep B, Adol or Pedi Dosage Unknown Completed [facility] HIB 4 Dose Schedule Unknown Completed [facility] HIB 4 Dose Schedule Unknown Completed [facility] HIB 4 Dose Schedule Unknown Completed [facility] HIB 4 Dose Schedule Unknown Completed [facility] HPV Unknown Completed [facility] HPV Unknown Completed [facility] Meningococcal Polysaccharide (groups A, C, Y and W-135) conjugate vaccine (MCV4P) Unknown Completed [facility] Meningococcal Polysaccharide (groups A, C, Y and W-135) conjugate vaccine (MCV4P) Unknown Completed [facility] MMR Unknown Completed [facility] MMR Unknown Completed [facility] Pneumococcal 7 Conjugate, PCV7 (Prevnar7) Unknown Completed [facility] IPV Unknown Completed [facility] IPV Unknown Completed [facility] IPV Unknown Completed [facility] IPV Unknown Completed [facility] TDAP Unknown Completed [facility] Varicella (varivax)(chicken pox) Unknown Completed [facility] Varicella (varivax)(chicken pox) Unknown Completed [facility] TDAP Unknown Completed [facility] MMR Unknown Completed [facility] HPV9 Unknown Completed [facility] HPV9 Unknown Completed [facility] HPV9 Unknown Completed [facility] Influenza Virus Vaccine Quad IM 3+ YRS Unknown Completed [facility] SARS-COV-2 COVID-19 PFIZER VACCINE Unknown Completed [facility] SARS-COV-2 COVID-19 PFIZER VACCINE Unknown Completed [facility] DTaP, Unspecified Formulation Unknown Completed [facility] DTaP, Unspecified Formulation Unknown Completed [facility] DTaP, Unspecified Formulation Unknown Completed [facility] DTaP, Unspecified Formulation Unknown Completed [facility] DTaP, Unspecified Formulation Unknown Completed [facility] Influenza Virus Vaccine - Whole Unknown Completed [facility] HEPATITIS A Unknown Completed [facility] HEPATITIS A Unknown Completed [facility] Hep B, Adol or Pedi Dosage Unknown Completed [facility] Hep B, Adol or Pedi Dosage Unknown Completed [facility] Hep B, Adol or Pedi Dosage Unknown Completed [facility] HIB 4 Dose Schedule Unknown Completed [facility] HIB 4 Dose Schedule Unknown Completed [facility] HIB 4 Dose Schedule Unknown Completed [facility] HIB 4 Dose Schedule Unknown Completed [facility] HPV Unknown Completed [facility] HPV Unknown Completed [facility] Meningococcal Polysaccharide (groups A, C, Y and W-135) conjugate vaccine (MCV4P) Unknown Completed [facility] Meningococcal Polysaccharide (groups A, C, Y and W-135) conjugate vaccine (MCV4P) Unknown Completed [facility] MMR Unknown Completed [facility] MMR Unknown Completed [facility] Pneumococcal 7 Conjugate, PCV7 (Prevnar7) Unknown Completed [facility] IPV Unknown Completed [facility] IPV Unknown Completed [facility] IPV Unknown Completed [facility] IPV Unknown Completed [facility] TDAP Unknown Completed [facility] Varicella (varivax)(chicken pox) Unknown Completed [facility] Varicella (varivax)(chicken pox) Unknown Completed [facility] Vital Signs Vital Name Observation Time Observation Value Comments S ource Systolic blood pressure 2022-08-29 13:00:00 108 mm[Hg] [facility] Diastolic blood pressure 2022-08-29 13:00:00 66 mm[Hg] [facility] Heart rate 2022-08-29 13:00:00 77 /min [facility] Body temperature 2022-08-29 13:00:00 36.06 Leigh [facility] Respiratory rate 2022-08-29 13:00:00 18 /min [facility] Oxygen saturation in Arterial blood by Pulse oximetry 2022-08-29 13:00:00 99 /min [facility] Body height 2022-08-26 19:36:00 165.1 cm [facility] Body weight 2022-08-26 19:36:00 83.519 kg [facility] BMI 2022-08-26 19:36:00 30.64 kg/m2 [facility] Systolic blood pressure 2022-08-25 18:41:00 123 mm[Hg] [facility] Diastolic blood pressure 2022-08-25 18:41:00 84 mm[Hg] [facility] Heart rate 2022-08-25 18:41:00 85 /min [facility] Body temperature 2022-08-25 18:41:00 36.5 Leigh [facility] Respiratory rate 2022-08-25 18:41:00 16 /min [facility] Body height 2022-08-25 18:41:00 165.1 cm [facility] Body weight 2022-08-25 18:41:00 83.519 kg [facility] BMI 2022-08-25 18:41:00 30.64 kg/m2 [facility] Systolic blood pressure 2022-08-20 13:19:00 125 mm[Hg] [facility] Diastolic blood pressure 2022-08-20 13:19:00 85 mm[Hg] [facility] Heart rate 2022-08-20 13:19:00 81 /min [facility] Body temperature 2022-08-20 13:19:00 36.39 Leigh [facility] Respiratory rate 2022-08-20 13:19:00 18 /min [facility] Body height 2022-08-20 13:19:00 165.1 cm [facility] Body weight 2022-08-20 13:19:00 82.158 kg [facility] BMI 2022-08-20 13:19:00 30.14 kg/m2 [facility] Systolic blood pressure 2022-08-17 20:01:00 125 mm[Hg] [facility] Diastolic blood pressure 2022-08-17 20:01:00 83 mm[Hg] [facility] Heart rate 2022-08-17 20:01:00 88 /min [facility] Body temperature 2022-08-17 20:01:00 36.28 Leigh [facility] Respiratory rate 2022-08-17 20:01:00 18 /min [facility] Body height 2022-08-17 20:01:00 165.1 cm [facility] Body weight 2022-08-17 20:01:00 83.008 kg [facility] BMI 2022-08-17 20:01:00 30.45 kg/m2 [facility] Oxygen saturation in Arterial blood by Pulse oximetry 2022-08-17 20:01:00 98 /min [facility] Systolic blood pressure 2022-08-13 14:54:00 122 mm[Hg] [facility] Diastolic blood pressure 2022-08-13 14:54:00 80 mm[Hg] [facility] Heart rate 2022-08-13 14:54:00 83 /min [facility] Body temperature 2022-08-13 14:54:00 36.22 Leigh [facility] Respiratory rate 2022-08-13 14:54:00 16 /min [facility] Body height 2022-08-13 14:54:00 165.1 cm [facility] Body weight 2022-08-13 14:54:00 81.676 kg [facility] BMI 2022-08-13 14:54:00 29.96 kg/m2 [facility] Systolic blood pressure 2022-08-10 19:31:00 129 mm[Hg] [facility] Diastolic blood pressure 2022-08-10 19:31:00 85 mm[Hg] [facility] Heart rate 2022-08-10 19:31:00 86 /min [facility] Body temperature 2022-08-10 19:31:00 36.28 Leigh [facility] Respiratory rate 2022-08-10 19:31:00 18 /min [facility] Body height 2022-08-10 19:31:00 165.1 cm [facility] Body weight 2022-08-10 19:31:00 81.874 kg [facility] BMI 2022-08-10 19:31:00 30.04 kg/m2 [facility] Systolic blood pressure 2022-08-04 19:31:00 123 mm[Hg] [facility] Diastolic blood pressure 2022-08-04 19:31:00 81 mm[Hg] [facility] Heart rate 2022-08-04 19:31:00 97 /min [facility] Body temperature 2022-08-04 19:31:00 36.56 Leigh [facility] Respiratory rate 2022-08-04 19:31:00 18 /min [facility] Body height 2022-08-04 19:31:00 165.1 cm [facility] Body weight 2022-08-04 19:31:00 81.392 kg [facility] BMI 2022-08-04 19:31:00 29.86 kg/m2 [facility] Systolic blood pressure 2022-07-31 17:53:00 115 mm[Hg] [facility] Diastolic blood pressure 2022-07-31 17:53:00 74 mm[Hg] [facility] Heart rate 2022-07-31 17:53:00 83 /min [facility] Body temperature 2022-07-31 17:53:00 36.39 Leigh [facility] Respiratory rate 2022-07-31 17:53:00 18 /min [facility] Body height 2022-07-31 17:53:00 165.1 cm [facility] Body weight 2022-07-31 17:53:00 81.557 kg [facility] BMI 2022-07-31 17:53:00 29.92 kg/m2 [facility] Systolic blood pressure 2022-07-23 14:53:00 122 mm[Hg] [facility] Diastolic blood pressure 2022-07-23 14:53:00 79 mm[Hg] [facility] Heart rate 2022-07-23 14:53:00 89 /min [facility] Body temperature 2022-07-23 14:53:00 35.94 Leigh [facility] Respiratory rate 2022-07-23 14:53:00 18 /min [facility] Body height 2022-07-23 14:53:00 165.1 cm [facility] Body weight 2022-07-23 14:53:00 79.89 kg [facility] BMI 2022-07-23 14:53:00 29.31 kg/m2 [facility] Systolic blood pressure 2022-07-20 19:11:00 139 mm[Hg] [facility] Diastolic blood pressure 2022-07-20 19:11:00 88 mm[Hg] [facility] Heart rate 2022-07-20 19:11:00 104 /min [facility] Body temperature 2022-07-20 19:05:00 36.33 Leigh [facility] Respiratory rate 2022-07-20 19:05:00 18 /min [facility] Body height 2022-07-20 19:05:00 165.1 cm [facility] Body weight 2022-07-20 19:05:00 79.975 kg [facility] BMI 2022-07-20 19:05:00 29.34 kg/m2 [facility] Systolic blood pressure 2022-07-16 14:40:00 120 mm[Hg] [facility] Diastolic blood pressure 2022-07-16 14:40:00 83 mm[Hg] [facility] Heart rate 2022-07-16 14:40:00 99 /min [facility] Body temperature 2022-07-16 14:40:00 36.11 Leigh [facility] Respiratory rate 2022-07-16 14:40:00 17 /min [facility] Body height 2022-07-16 14:40:00 165.1 cm [facility] Body weight 2022-07-16 14:40:00 79.493 kg [facility] BMI 2022-07-16 14:40:00 29.16 kg/m2 [facility] Systolic blood pressure 2022-07-15 19:45:00 119 mm[Hg] [facility] Diastolic blood pressure 2022-07-15 19:45:00 70 mm[Hg] [facility] Heart rate 2022-07-15 19:45:00 82 /min [facility] Body temperature 2022-07-15 19:45:00 36.78 Leigh [facility] Respiratory rate 2022-07-15 19:45:00 18 /min [facility] Oxygen saturation in Arterial blood by Pulse oximetry 2022-07-15 19:45:00 99 /min [facility] Body height 2022-07-15 16:51:00 165.1 cm [facility] Body weight 2022-07-15 16:51:00 80.06 kg [facility] BMI 2022-07-15 16:51:00 29.37 kg/m2 [facility] Systolic blood pressure 2022-07-10 14:01:00 129 mm[Hg] [facility] Diastolic blood pressure 2022-07-10 14:01:00 87 mm[Hg] [facility] Heart rate 2022-07-10 14:01:00 89 /min [facility] Body temperature 2022-07-10 14:01:00 36.17 Leigh [facility] Respiratory rate 2022-07-10 14:01:00 18 /min [facility] Body height 2022-07-10 14:01:00 165.1 cm [facility] Body weight 2022-07-10 14:01:00 79.946 kg [facility] BMI 2022-07-10 14:01:00 29.33 kg/m2 [facility] Systolic blood pressure 2022-07-08 14:25:00 115 mm[Hg] [facility] Diastolic blood pressure 2022-07-08 14:25:00 72 mm[Hg] [facility] Heart rate 2022-07-08 14:25:00 77 /min [facility] Body temperature 2022-07-08 14:25:00 36.17 Leigh [facility] Respiratory rate 2022-07-08 14:25:00 18 /min [facility] Body height 2022-07-08 14:25:00 165.1 cm [facility] Body weight 2022-07-08 14:25:00 77.735 kg [facility] BMI 2022-07-08 14:25:00 28.52 kg/m2 [facility] Systolic blood pressure 2022-06-24 15:23:00 124 mm[Hg] [facility] Diastolic blood pressure 2022-06-24 15:23:00 90 mm[Hg] [facility] Heart rate 2022-06-24 15:23:00 95 /min [facility] Body temperature 2022-06-24 15:23:00 35.67 Leigh [facility] Respiratory rate 2022-06-24 15:23:00 18 /min [facility] Body height 2022-06-24 15:23:00 165.1 cm [facility] Body weight 2022-06-24 15:23:00 78.104 kg [facility] BMI 2022-06-24 15:23:00 28.65 kg/m2 [facility] Systolic blood pressure 2022-06-10 21:11:00 128 mm[Hg] [facility] Diastolic blood pressure 2022-06-10 21:11:00 84 mm[Hg] [facility] Heart rate 2022-06-10 21:11:00 104 /min [facility] Body temperature 2022-06-10 21:11:00 35.89 Leigh [facility] Respiratory rate 2022-06-10 21:11:00 18 /min [facility] Body height 2022-06-10 21:11:00 165.1 cm [facility] Body weight 2022-06-10 21:11:00 74.844 kg [facility] BMI 2022-06-10 21:11:00 27.46 kg/m2 [facility] Systolic blood pressure 2022-06-05 18:26:00 118 mm[Hg] [facility] Diastolic blood pressure 2022-06-05 18:26:00 68 mm[Hg] [facility] Heart rate 2022-06-05 18:26:00 111 /min [facility] Body temperature 2022-06-05 18:26:00 37 Leigh [facility] Respiratory rate 2022-06-05 18:26:00 20 /min [facility] Body weight 2022-06-05 18:26:00 72.576 kg [facility] BMI 2022-06-05 18:26:00 26.63 kg/m2 [facility] Oxygen saturation in Arterial blood by Pulse oximetry 2022-06-05 18:26:00 99 /min [facility] Heart rate 2022-05-30 21:15:00 89 /min [facility] Oxygen saturation in Arterial blood by Pulse oximetry 2022-05-30 21:15:00 100 /min [facility] Systolic blood pressure 2022-05-30 19:21:00 124 mm[Hg] [facility] Diastolic blood pressure 2022-05-30 19:21:00 78 mm[Hg] [facility] Body temperature 2022-05-30 19:21:00 37.06 Leigh [facility] Respiratory rate 2022-05-30 19:21:00 18 /min [facility] Body weight 2022-05-30 19:05:00 73.483 kg [facility] BMI 2022-05-30 19:05:00 26.96 kg/m2 [facility] Systolic blood pressure 2022-05-20 12:55:00 117 mm[Hg] [facility] Diastolic blood pressure 2022-05-20 12:55:00 82 mm[Hg] [facility] Heart rate 2022-05-20 12:55:00 85 /min [facility] Body temperature 2022-05-20 12:55:00 36.39 Leigh [facility] Respiratory rate 2022-05-20 12:55:00 20 /min [facility] Body height 2022-05-20 12:55:00 165.1 cm [facility] Body weight 2022-05-20 12:55:00 73.755 kg [facility] BMI 2022-05-20 12:55:00 27.06 kg/m2 [facility] Heart rate 2022-04-21 05:30:00 76 /min [facility] Oxygen saturation in Arterial blood by Pulse oximetry 2022-04-21 05:30:00 100 /min [facility] Systolic blood pressure 2022-04-21 05:00:00 115 mm[Hg] [facility] Diastolic blood pressure 2022-04-21 05:00:00 76 mm[Hg] [facility] Body temperature 2022-04-21 05:00:00 36.61 Leigh [facility] Respiratory rate 2022-04-21 05:00:00 18 /min [facility] Body height 2022-04-21 05:00:00 165.1 cm [facility] Body weight 2022-04-21 05:00:00 72.122 kg [facility] BMI 2022-04-21 05:00:00 26.46 kg/m2 [facility] Systolic blood pressure 2022-04-16 16:47:00 108 mm[Hg] [facility] Diastolic blood pressure 2022-04-16 16:47:00 73 mm[Hg] [facility] Heart rate 2022-04-16 16:47:00 67 /min [facility] Body temperature 2022-04-16 16:47:00 36.89 Eligh [facility] Respiratory rate 2022-04-16 16:47:00 17 /min [facility] Body height 2022-04-16 16:47:00 165.1 cm [facility] Body weight 2022-04-16 16:47:00 72.213 kg [facility] BMI 2022-04-16 16:47:00 26.49 kg/m2 [facility] Systolic blood pressure 2022-03-19 20:31:00 114 mm[Hg] [facility] Diastolic blood pressure 2022-03-19 20:31:00 77 mm[Hg] [facility] Heart rate 2022-03-19 20:31:00 81 /min [facility] Body temperature 2022-03-19 20:31:00 36.56 Leigh [facility] Respiratory rate 2022-03-19 20:31:00 18 /min [facility] Body height 2022-03-19 20:31:00 165.1 cm [facility] Body weight 2022-03-19 20:31:00 70.035 kg [facility] BMI 2022-03-19 20:31:00 25.69 kg/m2 [facility] Systolic blood pressure 2022-02-24 20:07:00 138 mm[Hg] [facility] Diastolic blood pressure 2022-02-24 20:07:00 87 mm[Hg] [facility] Heart rate 2022-02-24 20:07:00 95 /min [facility] Body temperature 2022-02-24 20:07:00 36.72 Leigh [facility] Respiratory rate 2022-02-24 20:07:00 18 /min [facility] Body height 2022-02-24 20:07:00 165.1 cm [facility] Body weight 2022-02-24 20:07:00 68.068 kg [facility] BMI 2022-02-24 20:07:00 24.97 kg/m2 [facility] Systolic blood pressure 2022-01-17 16:46:00 128 mm[Hg] [facility] Diastolic blood pressure 2022-01-17 16:46:00 87 mm[Hg] [facility] Heart rate 2022-01-17 16:45:00 69 /min [facility] Body temperature 2022-01-17 16:45:00 36.5 Leigh [facility] Respiratory rate 2022-01-17 16:45:00 20 /min [facility] Body height 2022-01-17 16:45:00 165.1 cm [facility] Body weight 2022-01-17 16:45:00 67.405 kg [facility] BMI 2022-01-17 16:45:00 24.73 kg/m2 [facility] Oxygen saturation in Arterial blood by Pulse oximetry 2021-01-30 20:01:00 97 /min [facility] Systolic blood pressure 2021-01-30 20:01:00 132 mm[Hg] [facility] Diastolic blood pressure 2021-01-30 20:01:00 72 mm[Hg] [facility] Heart rate 2021-01-30 20:01:00 88 /min [facility] Body temperature 2021-01-30 20:01:00 37.11 Leigh [facility] Respiratory rate 2021-01-30 20:01:00 18 /min [facility] Body height 2021-01-30 20:01:00 165.1 cm [facility] Body weight 2021-01-30 20:01:00 67.217 kg [facility] BMI 2021-01-30 20:01:00 24.66 kg/m2 [facility] Systolic blood pressure 2020-02-11 21:15:00 135 mm[Hg] [facility] Diastolic blood pressure 2020-02-11 21:15:00 95 mm[Hg] [facility] Oxygen saturation in Arterial blood by Pulse oximetry 2020-02-11 21:15:00 99 /min [facility] Heart rate 2020-02-11 19:35:00 98 /min [facility] Body temperature 2020-02-11 19:35:00 37 Leigh [facility] Respiratory rate 2020-02-11 19:35:00 18 /min [facility] Body weight 2020-02-11 19:35:00 70.761 kg [facility] Systolic blood pressure 2020-02-11 21:15:00 135 mm[Hg] [facility] Diastolic blood pressure 2020-02-11 21:15:00 95 mm[Hg] [facility] Oxygen saturation in Arterial blood by Pulse oximetry 2020-02-11 21:15:00 99 /min [facility] Heart rate 2020-02-11 19:35:00 98 /min [facility] Body temperature 2020-02-11 19:35:00 37 Leigh [facility] Respiratory rate 2020-02-11 19:35:00 18 /min [facility] Body weight 2020-02-11 19:35:00 70.761 kg [facility] Procedures Procedure Date / Time Performed Performing Clinician Source DME/SUPPLY JUSTIFICATION 2022-09-15 05:01:00 Doc tor Unassigned, [place] [facility] CBC WITH DIFF 2022-08-28 09:39:00 Gila Berrios [facility] VENOUS CORD GAS 2022-08-28 04:27:00 Frieda Newsome [facility] CENTRAL NEURAXIAL BLOCK 2022-08-27 12:22:00 St arlyn Flynn [facility] HEPATITIS B SURFACE ANTIGEN 2022-08-26 20:23:00 Frieda Newsome [facility] HB ABO GROUPING 2022-08-26 20:23:00 Frieda Newsome [facility] RHO (D) IMMUNE GLOBULIN 2022-08-26 20:23:00 Elin Berrios [facility] SYPHILIS IGG/IGM 2022-08-26 20:23:00 Frieda Newsome [facility] NON-STRESS TEST 2022-08-26 00:10:22 Masood Akbar [facility] POCT URINALYSIS 2022-08-25 18:49:00 Julian Roland [facility] POCT URINALYSIS 2022-08-25 18:44:00 Julian Roland [facility] NON-STRESS TEST 2022-08-20 14:03:39 Masood Akbar [facility] POCT URINALYSIS 2022-08-20 13:20:00 Julian Roland [facility] NON-STRESS TEST 2022-08-17 21:16:23 Masood Akbar [facility] POCT URINALYSIS 2022-08-17 20:04:00 Julian Roland [facility] NON-STRESS TEST 2022-08-13 21:32:17 Masood Akbar [facility] POCT URINALYSIS 2022-08-13 14:56:00 Julian Roland [facility] NON-STRESS TEST 2022-08-11 02:24:06 Shruthi Sheehan [facility] POCT URINALYSIS 2022-08-10 19:34:00 Julian Roland [facility] NON-STRESS TEST 2022-08-05 01:41:48 Masood Akbar [facility] POCT URINALYSIS 2022-08-04 19:32:00 Julian Roland [facility] NON-STRESS TEST 2022-07-31 18:32:53 Jorge Roland [facility] POCT URINALYSIS 2022-07-31 17:56:00 Julian Roland [facility] SECOND AND THIRD TRIMESTER ULTRASOUND 2022-07-24 17:15:00 Qing Morley [facility] NON-STRESS TEST 2022-07-23 16:09:00 Masood Akbar [facility] POCT URINALYSIS 2022-07-23 14:55:00 Julian Roland [facility] NON-STRESS TEST 2022-07-20 23:55:57 Masood Akbar [facility] POCT URINALYSIS 2022-07-20 19:12:00 Julian Roland [facility] NON-STRESS TEST 2022-07-16 16:25:43 Ute Dodge [facility] POCT URINALYSIS 2022-07-16 14:42:00 Julian Roland [facility] URINALYSIS 2022-07-15 18:46:00 Adum, Monique Henao [facility] ADC CLC OR LCC ONLY - WET PREP 2022-07-15 18:46:00 Adum, Monique Meza [facility] ASSIGNMENT OF BENEFITS 2022-07-15 16:49:38 Docto r Unassigned, [place] [facility] CONSENT/REFUSAL FOR DIAGNOSIS AND TREATMENT 2022-07-15 16:48:01 Doctor Unassigned, [place] [facility] NON-STRESS TEST 2022-07-10 17:18:49 Masood Akbar [facility] POCT URINALYSIS 2022-07-10 14:02:00 Julian Roland [facility] SECOND AND THIRD TRIMESTER ULTRASOUND 2022-07-09 19:22:00 iQng Morley [facility] SECOND AND THIRD TRIMESTER ULTRASOUND 2022-07-09 19:19:00 Qing Morley [facility] NON-STRESS TEST 2022-07-08 18:37:07 Masood Akbar [facility] POCT URINALYSIS 2022-07-08 14:26:00 Julian Roland [facility] HIV 1/2 AG-AB WITH REFLEX 2022-06-24 15:54:00 Yue Akbar [facility] SYPHILIS IGG/IGM 2022-06-24 15:54:00 Yue Akbar [facility] POCT URINALYSIS 2022-06-24 15:26:00 Julian Roland [facility] POCT URINALYSIS 2022-06-10 21:11:00 Julian Roland [facility] CONSENT/REFUSAL FOR DIAGNOSIS AND TREATMENT 2022-06-05 18:19:17 Doctor Unassigned, [place] [facility] DME/SUPPLY JUSTIFICATION 2022-06-04 05:01:00 Doc tor Unassigned, [place] [facility] URINALYSIS 2022-05-30 20:01:00 Harleen Miles [facility] ADC CLC OR LCC ONLY - WET PREP 2022-05-30 20:01:00 Harleen Miles [facility] CONSENT/REFUSAL FOR DIAGNOSIS AND TREATMENT 2022-05-30 19:07:42 Doctor Unassigned, [place] [facility] POCT URINALYSIS 2022-05-20 00:00:00 Julian Roland [facility] URINALYSIS 2022-04-21 05:14:00 Qing Morley [facility] ADC CLC OR LCC ONLY - WET PREP 2022-04-21 05:14:00 Qing Morley [facility] POCT URINALYSIS W/O SPECIFIC GRAVITY 2022-04-16 16:48:00 Parvez Chung [facility] MATERNAL SERUM SCREEN 1-Q 2022-04-16 00:00:00 Qing Morlye [facility] SCANNED LAB RESULTS 2022-03-20 06:01:00 Doctor Isacc evans, [place] [facility] FLU VACC (), 6 MO-64 YRS, .5ML, IM, QUAD (FLUCELVAX) 2022-03-19 23:20:50 Qing Morley [facility] POCT URINALYSIS W/O SPECIFIC GRAVITY 2022-03-19 00:00:00 Qing Morley [facility] POCT URINALYSIS 2022-02-24 20:00:00 Julian Roland [facility] POCT TEST 2022-01-17 16:39[facility]00 [facility]/O SPECIFIC GRAVITY 2022-01-17 16:39:00 Pam Manzanoasha [facility] ASSIGNMENT OF BENEFITS 2022-01-17 16:30:59 Docto r Unassigned, [place] [facility] POCT MOLECULAR FLU 2021-01-30 20:13:00 Hamida Nieto [facility] POCT MOLECULAR STREP 2021-01-30 20:10:00 Helen Nieto [facility] POCT TEST 2020-02-11 20:10:00 Samia Tejada [facility] NOTICE OF PRIVACY PRACTICES 2020-02-11 19:30:19 Doctor Unassigned, [place] [facility] CONSENT/REFUSAL FOR DIAGNOSIS AND TREATMENT 2020-02-11 19:30:04 Doctor Unassigned, [place] [facility] Encounters Start Date/Time End Date/Time Encounter Type Admission Type Attending [facility] Facility Care Department Encounter ID Source 2022-04-21 00:48:13 Outpatient X [facility] [id number] [facility] 2020-12-14 13:13:53 Emergency [facility] [id number] [facility] 2022-12-03 09:30:00 2022-12-03 09:30:00 Outpatient YUE GRIMALDO [facility] [id number] [facility] 2022-10-14 00:00:00 2022-10-14 00:00:00 Telephone Yue Akbar [facility] MATERNAL & CHILD [facility] [id number] [id number] [facility] 2022-09-23 07:45:00 2022-09-23 07:45:00 Outpatient YUE GRIMALDO [facility] [id number] [facility] 2022-09-15 00:00:00 2022-09-15 00:00:00 Orders Only Doctor Unassigned[place] [facility] [id number] [id number] [id number] [id number] [facility] 2022-08-26 13:38:00 2022-08-29 14:24:00 Hospital Encounter Josette Lal [facility] [id number] [id number] [id number] [id number] [facility] 2022-08-27 07:10:00 2022-08-28 01:11:00 Anesthesia Event Anders Dash [facility] [id number] [id number] [id number] [id number] [facility] 2022-08-25 15:00:00 2022-08-25 15:00:00 Routine Visit BenIsiah reagancarlos a Spangler [facility] MATERNAL & CHILD [facility] [id number] [id number] [id number] [id number] [facility] 2022-08-25 15:00:00 2022-08-25 14:19:03 Outpatient R BENMERARY YUE [facility] [id number] [facility] 2022-08-25 14:30:00 2022-08-25 14:18:29 [facility] [id number] [facility] 2022-08-21 00:00:00 2022-08-21 00:00:00 Case Management BienvenidoIsiah popecarlos a Spangler [facility] [id number] [id number] [id number] [id number] [facility] 2022-08-20 11:30:00 2022-08-20 11:38:46 [employer] Visit 1, [facility] Room Yue Akbar [facility] MATERNAL & CHILD HEALTH [facility] [id number] [id number] [id number] [id number] [facility] 2022-08-20 08:30:00 2022-08-20 09:02:28 Outpatient R BENISIAH REAGANNDA [facility] [id number] [facility] 2022-08-20 08:30:00 2022-08-20 09:02:28 Routine Visit Benmerary Yue Crys [facility] [id number] [id number] [id number] [id number] [facility] 2022-08-20 00:00:00 2022-08-20 00:00:00 Telephone Yue Akbar [facility] MAT[facility]NAL & CHILD [facility]ALTH [facility] 1.2.840.114 350.1.13.10 4.2.7.2.686 [id number] [facility] 2022-08-17 15:00:00 2022-08-17 15:42:27 Outpatient R YUE AKBAR [facility] [id number] [facility] 2022-08-17 15:00:00 2022-08-17 15:42:27 Routine Visit Yue Akbar [facility] MAT[facility]NAL & CHILD [facility]ALTH [facility] 1..840.114 350.1.13.10 4.2.7.2.686 [id number] [facility] 2022-08-13 09:45:00 2022-08-13 10:40:14 Outpatient R YUE AKBAR [facility] [id number] [facility] 2022-08-13 09:45:00 2022-08-13 10:40:14 Routine Visit Yue Akbar [facility] MATERNAL & CHILD [facility] 1..840.114 350.1.13.10 4.2.7.2.686 [id number] [facility] 2022-08-12 14:00:00 2022-08-12 14:00:00 Outpatient R YUE AKBAR [facility] [id number] [facility] 2022-08-11 00:00:00 2022-08-11 00:00:00 Telephone Shruthi Sheehan [facility] MATERNAL & CHILD HEALTH [facility] 1..840.114 350.1.13.10 4.2.7.2.686 [id number] [facility] 2022-08-10 14:15:00 2022-08-10 15:46:47 Outpatient R SHRUTHI SHEEHAN [facility] [id number] [facility] 2022-08-10 14:15:00 2022-08-10 15:46:47 Routine Visit Provider, Julian Lema Ariel [facility] MATERNAL & CHILD HEALTH [facility] ..840.114 350.1.13.10 4.2.7.2.686 [id number] [facility] 2022-08-07 08:15:00 2022-08-07 08:15:00 Outpatient YUE GRIMALDO [facility] [id number] [facility] 2022-08-06 11:30:00 2022-08-06 12:00:00 Battery 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 Conveyor 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 Visit 1, [facility] Jaswinder [facility] MATERNAL & CHILD HEALTH [facility] 02.16.840.114 350.1.13.10 4.2.7.2.686 [id number] [facility] 2022-08-06 11:30:00 2022-08-06 11:30:00 Outpatient JASWINDER ENCISO JASWINDER [facility] [id number] [facility] 2022-08-04 15:00:00 2022-08-04 15:00:00 Routine Visit Yue Akbar [facility] MATERNAL & CHILD [facility] ..840.114 350.1.13.10 4.2.7.2.686 [id number] [facility] 2022-08-04 15:00:00 2022-08-04 14:55:36 Outpatient YUE GRIMALDO [facility] [id number] [facility] 2022-07-31 14:45:00 2022-07-31 14:45:00 Routine Visit Julian Roland [facility] [employer] [facility] 1.2.840.114 350.1.13.10 4.2.7.2.686 [id number] [facility] 2022-07-31 11:00:00 2022-07-31 13:32:52 Outpatient P ANA ODEN [facility] [id number] [facility] 2022-07-31 11:00:00 2022-07-31 11:30:00 Battery 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 Conveyor Line Visit 1, [facility] Ana Oden [facility] MATERNAL & CHILD HEALTH [facility] 1.2.840.114 350.1.13.10 4.2.7.2.686 [id number] [facility] 2022-07-31 00:00:00 2022-07-31 00:00:00 Julian Suarez [facility] MATERNAL & CHILD [facility] 1..840.114 350.1.13.10 4.2.7.2.686 [id number] [facility] 2022-07-28 15:30:00 2022-07-28 15:30:00 Outpatient R JULIAN ROLAND [facility] [id number] [facility] 2022-07-27 09:45:00 2022-07-27 09:45:00 Outpatient R JULIAN ROLAND [facility] [id number] [facility] 2022-07-24 11:00:00 2022-07-24 12:22:23 Battery Charger Conveyor Line Visit 1, [facility] MATERNAL & CHILD [facility] 1..840.114 350.1.13.10 4.2.7.2.686 [id number] [facility] 2022-07-24 11:00:00 2022-07-24 11:00:00 Outpatient P ESTHER DE LA TORRE [facility] [id number] [facility] 2022-07-23 10:00:00 2022-07-23 10:36:24 Outpatient R BENYUE REAGAN [facility] [id number] [facility] 2022-07-23 10:00:00 2022-07-23 10:36:24 Routine Visit BenYue reagan [facility] MATERNAL & CHILD [facility] 1.2840.114 350.1.13.10 4.2.7.2.686 [id number] [facility] 2022-07-20 16:00:00 2022-07-20 16:00:00 Routine Visit Yue Akbar [facility] 1..114 350.1.13.10 4.2.7.2.686 [id number] [facility] 2022-07-20 16:00:00 2022-07-20 15:00:08 [facility] [id number] [facility] 2022-07-16 11:30:00 2022-07-16 12:36:23 Outpatient R ANA ODEN [facility] [id number] [facility] 2022-07-16 11:30:00 2022-07-16 12:36:23 Battery Charger Conveyor Line Visit 1, [facility] Room Esther De La Torre Antonio F [facility] MATERNAL & CHILD [facility] 1..114 350.1.13.10 4.2.7.2.686 [id number] [facility] 2022-07-16 09:45:00 2022-07-16 10:37:13 Routine Visit Aleshia Dodge [facility] MATERNAL & CHILD [facility] 1.840.114 350.1.13.10 4.2.7.2.686 [id number] [facility] 2022-07-16 09:30:00 2022-07-16 09:30:00 Outpatient R [facility] [id number] [facility] 2022-07-15 11:55:00 2022-07-15 14:55:00 Outpatient X ADUMMONIQUE [facility] ELIAN [id number] [facility] 2022-07-15 11:55:00 2022-07-15 14:55:00 Emergency AdumMonique L [facility] 1.2.840.114 350.1.13.10 4.2.7.2.686 [id number] [facility] 2022-07-15 00:00:00 2022-07-15 00:00:00 Nurse Triage Jimmy [facility] [place] [place] 1.2840.114 350.1.13.10 4.2.7.2.686 [id number] [facility] 2022-07-14 08:30:00 2022-07-14 08:30:00 Outpatient R YUE AKBAR [facility] [id number] [facility] 2022-07-13 00:00:00 2022-07-13 00:00:00 Telephone Yue Akbar [facility] [employer] [facility] 1.2.840.114 350.1.13.10 4.2.7.2.686 [id number] 107 [id number] [facility] 2022-07-12 00:00:00 2022-07-12 00:00:00 Patient Secure Msg Yue Akbar [facility] [employer] [facility] 1.2.840.114 350.1.13.10 4.2.7.2.686 [id number] 107 [id number] [facility] 2022-07-10 09:00:00 2022-07-10 09:33:46 Outpatient R YUE AKBAR [facility] [id number] [facility] 2022-07-10 09:00:00 2022-07-10 09:33:46 Routine Visit Yue Akbar [facility] POL[facility] MATERNAL & CHILD HEALTH [facility] 1.840.114 350.1.13.10 4.2.7.2.686 [id number] [facility] 2022-07-09 13:00:00 2022-07-09 14:05:34 Battery Charger Conveyor Line Visit 2, [facility] Room [facility] ..114 350.1.13.10 4.2.7.2.686 [id number] [facility] 2022-07-09 13:00:00 2022-07-09 13:00:00 Outpatient P YULIANA IGLESIA [facility] [id number] [facility] 2022-07-08 10:30:00 2022-07-08 10:30:00 Routine Visit Yue Akbar [facility] POL[facility] MATERNAL & CHILD [facility] .840.114 350.1.13.10 4.2.7.2.686 [id number] [facility] 2022-07-08 10:30:00 2022-07-08 10:05:35 Outpatient R YUE AKBAR [facility] [id number] [facility] 2022-07-08 00:00:00 2022-07-08 00:00:00 Telephone Yue Akbar [facility] MATERNAL & CHILD [facility] 1.840.114 350.1.13.10 4.2.7.2.686 [id number] [facility] 2022-07-02 00:00:00 2022-07-02 00:00:00 Case Management Yue Akbar [facility] POL[facility] MATERNAL & CHILD [facility] 1.2.840.114 350.1.13.10 4.2.7.2.686 [id number] 107 [id number] [facility] 2022-07-01 15:30:00 2022-07-01 16:04:22 Battery Charger Conveyor Line Visit Ultrasound, Russell-Esther Mathis [facility] POLISHER AND S[facility]ER [facility] MATERNAL & CHILD [facility]ALTH [facility] 1.2840.114 350.1.13.10 4.2.7.2.686 [id number] [facility] 2022-07-01 15:30:00 2022-07-01 15:30:00 Outpatient ESTHER BELTRAN [facility] [id number] [facility] 2022-06-24 10:15:00 2022-06-24 10:54:05 [facility] [id number] [facility] 2022-06-24 10:15:00 2022-06-24 10:54:05 Routine Visit Yue Akbar [facility] POL[facility] MATERNAL & CHILD HEALTH [facility] 1..840.114 350.1.13.10 4.2.7.2.686 [id number] [facility] 2022-06-10 15:30:00 2022-06-10 16:27:05 Outpatient YUE GRIMALDO [facility] [id number] [facility] 2022-06-10 15:30:00 2022-06-10 16:27:05 Routine Visit Yue Akbar [facility] POLISH[facility] AND [facility] MATERNAL & CHILD HEALTH [facility] 1.2.840.114 350.1.13.10 4.2.7.2.686 [id number] [facility] 2022-06-09 11:00:00 2022-06-09 11:00:00 Outpatient YUE GRIMALDO [facility] [id number] [facility] 2022-06-08 00:00:00 2022-06-08 00:00:00 Natalia Mccoy Anna [facility] 1.0.114 350.1.13.10 4.2.7.2.686 [id number] [facility] 2022-06-07 00:00:00 2022-06-07 00:00:00 Natalia Mccoy Anna [facility] POL[facility] 1.0.114 350.1.13.10 4.2.7.2.686 [id number] [facility] 2022-06-05 13:26:00 2022-06-05 13:55:00 Emergency X GINA RICARDO [facility] ERT [id number] [facility] 2022-06-05 13:26:00 2022-06-05 13:55:00 Emergency Gina Ricardo [facility] 1..114 350.1.13.10 4.2.7.2.686 [id number] [facility] 2022-06-04 00:00:00 2022-06-04 00:00:00 Orders Only Doctor Unassigned, [place] [facility] 1..114 350.1.13.10 4.2.7.2.686 [id number] [facility] 2022-06-04 00:00:00 2022-06-04 00:00:00 Telephone Qing Morley [facility] 1..114 350.1.13.10 4.2.7.2.686 [id number] [facility] 2022-06-03 00:00:00 2022-06-03 00:00:00 Patient Secure Msg Yue Akbar [facility] 1.2.840.114 350.1.13.10 4.2.7.2.686 [id number] [facility] 2022-06-02 00:00:00 2022-06-02 00:00:00 Telephone Marina Candelariosol [facility] 1.2840.114 350.1.13.10 4.2.7.2.686 [id number] [facility] 2022-05-30 14:06:00 2022-05-30 16:15:00 Outpatient X HAMPTON-ELIZABETH S, HARLEEN HAMPTON-ELIZABETH S, HARLEEN [facility] ELIAN [id number] [facility] 2022-05-30 14:06:00 2022-05-30 16:15:00 Emergency Divine-Elizabeth sMarinaHarleen [facility] 1.2840.114 350.1.13.10 4.2.7.2.686 [id number] [facility] 2022-05-20 07:45:00 2022-05-20 08:15:47 Outpatient R YUE AKBAR [facility] [id number] [facility] 2022-05-20 07:45:00 2022-05-20 08:15:47 Routine Visit Yue Akbar [facility] MATERNAL & CHILD [facility] 1.20.114 350.1.13.10 4.2.7.2.686 [id number] [facility] 2022-05-20 00:00:00 2022-05-20 00:00:00 Letter (Out) Yue Akbar [facility] 1.2840.114 350.1.13.10 4.2.7.2.686 [id number] [facility] 2022-05-14 13:00:00 2022-05-14 13:00:00 Outpatient R QING MORLEY [facility] [id number] [facility] 2022-05-11 00:00:00 2022-05-11 00:00:00 Telephone Qing Morley [facility] 1.2.840.114 350.1.13.10 4.2.7.2.686 [id number] [facility] 2022-05-08 00:00:00 2022-05-08 00:00:00 Telephone [facility] 1.2.840.114 350.1.13.10 4.2.7.2.686 [id number] [facility] 2022-05-07 08:00:00 2022-05-07 08:52:53 Battery Charger Conveyor Line Visit Ultrasound, [facility] 1.2.840.114 350.1.13.10 4.2.7.2.686 [id number] [facility] 2022-05-07 08:00:00 2022-05-07 08:00:00 Outpatient P JASWINDER COLEMAN COREY [facility] [id number] [facility] 2022-04-20 22:48:00 2022-04-21 00:42:00 Outpatient X QING MORLEY [facility] [id number] [facility] 2022-04-20 22:48:00 2022-04-21 00:42:00 Emergency Qing Morley [facility] 1.2.840.114 350.1.13.10 4.2.7.2.686 [id number] [facility] 2022-04-20 15:00:00 2022-04-20 15:00:00 Outpatient R [facility] [id number] [facility] 2022-04-20 00:00:00 2022-04-20 00:00:00 Telephone Qing Morley [facility] 1.2.840.114 350.1.13.10 4.2.7.2.686 [id number] [facility] 2022-04-20 00:00:00 2022-04-20 00:00:00 Patient Secure Msg Qing Morley [facility] 1.2.840.114 350.1.13.10 4.2.7.2.686 [id number] [facility] 2022-04-16 10:45:00 2022-04-16 11:03:05 Outpatient R PARVEZ CHUNG [facility] [id number] [facility] 2022-04-16 10:45:00 2022-04-16 11:03:05 Routine Visit Margo Parvez [facility] 1.2.840.114 350.1.13.10 4.2.7.2.686 [id number] 134 [id number] [facility] 2022-04-16 00:00:00 2022-04-16 00:00:00 Telephone Parvez Chung [facility] 1.2.840.114 350.1.13.10 4.2.7.2.686 [id number] [facility] 2022-04-16 00:00:00 2022-04-16 00:00:00 Orders Only Qing Morley [place] [facility] 1.2.840.114 350.1.13.10 4.2.7.2.686 [id number] [facility] 2022-04-15 11:00:00 2022-04-15 11:00:00 Outpatient P [facility] [id number] [facility] 2022-03-30 00:00:2022-03-30 00:00:00 Telephone Qing Morley [facility] 1.2.840.114 350.1.13.10 4.2.7.2.686 [id number] [facility] 2022-03-30 00:00:00 2022-03-30 00:00:00 Telephone Qing Morley [facility] 1.2.840.114 350.1.13.10 4.2.7.2.686 [id number] 134 [id number] [facility] 2022-03-24 12:45:00 2022-03-24 12:45:00 Outpatient R JULIAN ROLAND [facility] [id number] [facility] 2022-03-20 11:00:00 2022-03-20 11:15:00 Battery Charger Conveyor Line Visit 2, Ad[facility] Qing Morley [facility] 1.2.840.114 350.1.13.10 4.2.7.2.686 [id number] [facility] 2022-03-20 11:00:00 2022-03-20 11:00:00 Outpatient R QING MORLEY [facility] [id number] [facility] 2022-03-20 00:00:00 2022-03-20 00:00:00 Orders Only Doctor Unassigned, [place] [facility] 1.2840.114 350.1.13.10 4.2.7.2.686 [id number] [facility] 2022-03-19 14:00:00 2022-03-19 15:23:42 Outpatient R QING MORLEY [facility] [id number] [facility] 2022-03-19 14:00:00 2022-03-19 15:23:42 Initial Visit Qing Morley [facility] 1.2840.114 350.1.13.10 4.2.7.2.686 [id number] [facility] 2022-03-16 00:00:00 2022-03-16 00:00:00 Patient Secure Msg Qing Morley [place] [facility] 1.2.840.114 350.1.13.10 4.2.7.2.686 [id number] [facility] 2022-03-04 10:00:00 2022-03-04 10:00:00 Outpatient R PEYMAN QING [facility] [id number] [facility] 2022-02-26 00:00:00 2022-02-26 00:00:00 Telephone Julian Roland [facility] MATERNAL & CHILD [facility] 1..840.114 350.1.13.10 4.2.7.2.686 [id number] 107 [id number] [facility] 2022-02-26 00:00:00 2022-02-26 00:00:00 Patient Secure g Julian Roland [facility] MATERNAL & CHILD [facility] 1..840.114 350.1.13.10 4.2.7.2.686 [id number] [facility] 2022-02-24 14:00:00 2022-02-24 14:50:28 Outpatient R JULIAN ROLAND [facility] [id number] [facility] 2022-02-24 14:00:00 2022-02-24 14:50:28 Routine Visit Julian Roland [facility] 1.840.114 350.1.13.10 4.2.7.2.686 [id number] [facility] 2022-02-16 10:30:00 2022-02-16 10:30:00 Outpatient R JULIAN ROLAND [facility] [id number] [facility] 2022-01-31 00:00:00 2022-01-31 00:00:00 Nurse Triage Rach Oropeza [facility] 1.84.114 350.1.13.10 4.2.7.2.686 [id number] [facility] 2022-01-29 00:00:00 2022-01-29 00:00:00 Telephone Julian Roland [facility] 1.84.114 350.1.13.10 4.2.7.2.686 [id number] [facility] 2022-01-29 00:00:00 2022-01-29 00:00:00 Patient Secure Msg Anna Mccoy [facility] 1.84.114 350.1.13.10 4.2.7.2.686 [id number] [facility] 2022-01-19 00:00:00 2022-01-19 00:00:00 Patient Secure Msg Julian Roland [facility] 1.840.114 350.1.13.10 4.2.7.2.686 [id number] 107 [id number] [facility] 2022-01-17 10:30:00 2022-01-17 11:46:56 Outpatient R ANNA MCCOY [facility] [id number] [facility] 2022-01-17 10:30:00 2022-01-17 11:46:56 Initial Visit Provider, KarenRmchp Madhuri Mccoy [facility] 1.840.114 350.1.13.10 4.2.7.2.686 [id number] [facility] 2022-01-17 00:00:00 2022-01-17 00:00:00 Orders Only Doctor Unassigned, [place] [facility] 1.2.840.114 350.1.13.10 4.2.7.2.686 [id number] [facility] 2021-02-01 00:00:00 2021-02-01 00:00:00 Telephone Emilia [facility] 1..840.114 350.1.13.10 4.2.7.2.686 [id number] [facility] 2021-01-31 00:00:00 2021-01-31 00:00:00 Telephone Shaniqua Kwong [facility] 1.2840.114 350.1.13.10 4.2.7.2.686 [id number] [facility] 2021-01-30 14:00:00 2021-01-30 14:30:12 [facility] [id number] 2021-01-30 14:00:00 2021-01-30 14:20:00 Urgent Care Fletcherabebe [facility] OFF[facility] 1..840.114 350.1.13.10 4.2.7.2.686 [id number] [facility] 2020-07-26 15:00:00 2020-07-26 15:00:00 Outpatient R PEYMAN QING [facility] [id number] [facility] 2020-07-24 00:00:00 2020-07-24 00:00:00 Telephone Qing Morley [facility] Building 1..840.114 350.1.13.10 4.2.7.2.686 [id number] 2020-07-24 00:00:00 2020-07-24 00:00:00 Telephone Qing Morley [facility] 1.2.840.114 350.1.13.10 4.2.7.2.686 [id number] [facility] 2020-02-11 13:37:00 2020-02-11 15:17:00 Emergency Samia Tejada [facility] 1.2.840.114 350.1.13.10 4.2.7.2.686 [id number] [facility] 2020-02-11 13:37:00 2020-02-11 15:17:00 Emergency Samia Tejada [facility] 1.2.840.114 350.1.13.10 4.2.7.2.686 [id number] 2020-02-11 00:00:00 2020-02-11 00:00:00 Orders Only Doctor Unassigned, [place] [facility] 1.2.840.114 350.1.13.10 4.2.7.2.686 [id number] [facility] 2020-02-11 00:00:00 2020-02-11 00:00:00 Orders Only Doctor Unassigned, [place] [facility] 1.2.840.114 350.1.13.10 4.2.7.2.686 [id number] Results Test Description Test Time Test Comments Results Result [facility] IMMUNE [id number] 05:55:59* Test Item Value Reference Range Interpretation Comme nts RHIG CANDIDATE? (test code = 5188) No- see comment Patient is not a candidate for RhIg- Patient is Rh Positive.Performed at [facility] Laboratory Services - [facility] Blood [id number] [place] [place] [address]Rnul Free: [phone] No. [id number] [facility] CenterArter[facility] Cord [id number] 04:37:25* Test Item Value Reference Range Interpretation Comme nts BASE EXCESS, CORD (test code = 4193856297) -9.1 mEq/L QUES AC PH, CORD (BEAKER) (test code = 7697544943) 7.21 7.18-7.38 PC02, CORD (test code = 2582837420) 48 See_Comment [Automated messa ge] The system which generated this result transmitted reference range: 32 - 66 mmHg. The reference range was not used to interpret this result as normal/abnormal. PO2, CORD (test code = 8235822670) 16 See_Comment [Automated messa ge] The system which generated this result transmitted reference range: 10 - 30 mmHg. The reference range was not used to interpret this result as normal/abnormal. BICARBONATE, CORD (test code = 1778369680) 19 See_Comment [Automated messa ge] The system which generated this result transmitted reference range: 17 - 27 mEq/L. The reference range was not used to interpret this result as normal/abnormal. [facility] Agh0137-14-08 04:37:15* Test Item Value Reference Range Interpretation Comme nts VENOUS BASE EXCESS, CORD (test code = 5634257984) -9.4 mEq/L VENOUS PH, CORD (test code = 3064968177) 7.28 7.25-7.45 VENOUS PC02, CORD (test code = 8779380926) 36 See_Comment [Automated messa ge] The system which generated this result transmitted reference range: 27 - 49 mmHg. The reference range was not used to interpret this result as normal/abnormal. VENOUS PO2, CORD (test code = 2762706732) 26 See_Comment [Automated me ssage] The system which generated this result transmitted reference range: 17 - 41 mmHg. The reference range was not used to interpret this result as normal/abnormal. VENOUS BICARBONATE, CORD (test code = 7839943501) 16 See_Comment [Automated messa ge] The system which generated this result transmitted reference range: 12 - 29 mEq/L. The reference range was not used to interpret this result as normal/abnormal. [facility] CenterGAL ONLY - SYPHILIS IGG/[id number] 14:35:45* Test Item Value Reference Range Interpretation Comme nts Syphilis IgG/IgM (test code = 87227-0) Non-reactive Non-reactive IGNACIA (test code = IGNACIA) Non-reactive - No serologic evidence of T. pallidum infection. Cannot exclude incubating or early syphilis. Submit a second specimen in 2-4 weeks if syphilis is clinically suspected. Equivocal - Further testing to follow. Reactive - Further testing to follow. Lab Interpretation (test code = 02649-8) Normal [facility] CenterHepatitis B Surface Vemvzvm0251-35-48 21:44:14 * Test Item Value Reference Range Interpretation Comme nts HBsAg Semi-Quantitative (lilibeth t code = 5195-3) 0.04 Negative [facility] CenterType and Screen - ONCE [id number] 20:36:00 * Test Item Value Reference Range Interpretation Comme nts ABO & RH (test code = 20) O POSITIVE IAT (test code = 1185) Negative [facility] CenterPOCT URINALYSIS W SPECIFIC [id number] 18:49:00* Test Item Value Reference Range Interpretation [...] POCT U APPEAR (test code = 3267) [facility] CenterPO[facility] URINAL[facility] W SPECIFIC [id number] 18:44:00* Test Item Value Reference Range Interpretation [...] POCT U APPEAR (test code = 3267) [facility] URINALYSIS W SPECIFIC [id number] 13:20:00* Test Item Value Reference Range Interpretation [...] . Lab Interpretation (test cod e = 45604-8) Abnormal [facility] URINALYSIS W SPECIFIC [id number] 13:20:00* Test Item Value Reference Range Interpretation [...] . Lab Interpretation (test cod e = 63070-0) Abnormal [facility] URINALYSIS W SPECIFIC [id number] 20:05:00* Test Item Value Reference Range Interpretation [...] POCT U APPEAR (test code = 3267) [facility] URINALYSIS W SPECIFIC [id number] 14:56:00* Test Item Value Reference Range Interpretation [...] . Lab Interpretation (test cod e = 64108-3) Abnormal [facility] URINALYSIS W SPECIFIC [id number] 14:56:00* Test Item Value Reference Range Interpretation [...] . Lab Interpretation (test cod e = 57767-3) [facility] [id number] 19:34:00* Test Item Value Reference Range Interpretation [...] POCT U APPEAR (test code = 3267) [facility] URINALYSIS W SPECIFIC [id number] 19:32:00* Test Item Value Reference Range Interpretation [...] . Lab Interpretation (test cod e = 49791-5) Abnormal [facility] URINALYSIS W SPECIFIC [id number] 17:56:00* Test Item Value Reference Range Interpretation [...] POCT U APPEAR (test code = 3267) [facility] URINALYSIS W SPECIFIC [id number] 14:55:00* Test Item Value Reference Range Interpretation [...] POCT U APPEAR (test code = 3267) [facility] URINALYSIS W SPECIFIC [id number] 19:12:00* Test Item Value Reference Range Interpretation [...] U APPEAR (test code = 3267) . [facility] URINALYSIS W SPECIFIC [id number] 19:12:00* Test Item Value Reference Range Interpretation [...] U APPEAR (test code = 3267) . [facility] URINALYSIS W SPECIFIC [id number] 14:42:00* Test Item Value Reference Range Interpretation [...] U APPEAR (test code = 3267) clear [facility] URINALYSIS W SPECIFIC [id number] 14:02:00* Test Item Value Reference Range Interpretation [...] U APPEAR (test code = 3267) .. [facility] URINALYSIS W SPECIFIC [id number] 14:27:00* Test Item Value Reference Range Interpretation [...] POCT U APPEAR (test code = 3267) [facility]GAL ONLY - SYPHILIS IGG/[id number] 15:23:03* Test Item Value Reference Range Interpretation Comme nts Syphilis IgG/IgM (test code = 89436-9) Non-reactive Non-reactive IGNACIA (test code = IGNACIA) Non-reactive - No serologic evidence of T. pallidum infection. Cannot exclude incubating or early syphilis. Submit a second specimen in 2-4 weeks if syphilis is clinically suspected. Equivocal - Further testing to follow. Reactive - Further testing to follow. Lab Interpretation (test code = 62891-8) Normal [facility] 1/2 AG-AB WITH [id number] 05:34:40* Test Item Value Reference Range Interpretation Comme nts HIV Semi-quantitative (test code = 47155-5) 0.07 Negative IGNACIA (test code = IGNACIA) Non-reactive for HIV-1 antigen and HIV-1/HIV-2 antibodies. ?No laboratory evidence of HIV infection. ?Repeat in 2-4 weeks if acute HIV infection is suspected. [facility] CenterPOKY URINALYS[facility] W SPECIFIC [id number] 15:26:00* Test Item Value Reference Range Interpretation [...] POCT U APPEAR (test code = 3267) [facility] [id number] 21:11:00* Test Item Value Reference Range Interpretation [...] POCT U APPEAR (test code = 3267) [facility] URINALYSIS W SPECIFIC [id number] 12:59:00* Test Item Value Reference Range Interpretation [...] U APPEAR (test code = 3267) . [facility] CenterMATERNAL SERUM SCREEN [id number] 10:00:00* Test Item Value Reference Range Interpretation Comme nts INTERPRETATION:-Q (test code = 97466-0) SEE NOTE Screen negative for open NTD. MSAFP RISK OPEN NTD-Q (test code = 87424-8) <1 IN 5000 $MSAFP-Q (test code = 1834-1) 44.2 ng/mL ADJ MULTIPLE OF MEDIAN-Q (test code = 08098-1) 0.74 -Q (test code = 8251-1) See Below This is a screen ing test, not a diagnostic test. Thisrisk assessment report is based in part on demographicdata provided by the ordering physician. Please notifythe laboratory promptly if any data are incorrect. Forassistance with recalculations, please call your [employer] laboratory. For assistance withinterpretation of these results, please contact [facility] counselor or [phone]). Interpretive CutoffsScreen Positive for Open NTD: > or = 2.50 adjusted MOM ?> or = 1.90 adjusted MOM for ?insulin-dependent diabetics ?> or = 4.00 adjusted MOM for ?twins ?> or = 3.50 adjusted MOM for ?twins insulin-dependent ?diabetics ?> or = 4.50 adjusted MOM for ?tripletsFor additional information, please refer tohttp://education.[employer]/faq/FA Q74v1(This link is being provided for informational/education al purposes only.) GESTATIONAL AGE-Q (test code = 31044-0) 20.1 weeks MATERNAL WEIGHT-Q (test code = 3142-7) 159 lbs EST'D DATE OF DELIVERY-Q (test code = 32151-1) 09/02/2022 [place] DETERMINED BY-Q (test code = 06706-7) LMP MOTHER'S ETHNIC ORIGIN-Q (test code = 59102-4) NUMBER OF FETUSES-Q (test code = 16375-5) 1 INSULIN-DEPEND DIABETIC-Q (test code = 88461-7) NO REPEAT SPECIMEN-Q (test code = 74155-1) NO HX OF NEURAL TUBE DEFECTS-Q (test code = 38781-0) NO PREV DOWN SYND-Q (test code = 47971-4) NO DONOR EGG-Q (test code = 65093-7) NO DONOR AGE: EGG RETRIEVAL-Q (test code = 73086-1) NOT GIVEN IGNACIA (test code = IGNACIA) PERFORMED BY [facility] [facility]; [address] [facility]. [place], [place] [address]; MULUGETA KINGSTON MD [facility] URINALYSIS W/O SPECIFIC [id number] 16:48:00* Test Item Value Reference Range Interpretation [...] = 3257) n/a Negative - Negati ve [facility] URINALYSIS W/O SPECIFIC [id number] 20:31:00* Test Item Value Reference Range Interpretation [...] = 3257) negative Negative - Negati ve [facility] URINALYSIS W SPECIFIC [id number] 20:01:00* Test Item Value Reference Range Interpretation [...] U APPEAR (test code = 3267) . [facility] URINALYSIS W SPECIFIC [id number] 20:01:00* Test Item Value Reference Range Interpretation [...] U APPEAR (test code = 3267) . [facility] [id number] 16:39:00* Test Item Value Reference Range Interpretation Comme nts POCT PREG (test code = 1605) Positive On board controls acceptable with C Line (test code = 3574) Yes POCT PREG LOT # (test code = 3575) POCT PREG TEST DATE ( test code = 3576) [facility] URINALYSIS W/O SPECIFIC [id number] 16:39:00* Test Item Value Reference Range Interpretation [...] = 3257) negative Negative - Negati ve [facility] [id number] 16:39:00* Test Item Value Reference Range Interpretation Comme nts POCT PREG (test code = 1605) Positive On board controls acceptable with C Line (test code = 3574) Yes POCT PREG LOT # (test code = 3575) POCT PREG TEST DATE ( test code = 3576) [facility] URINALYSIS W/O SPECIFIC [id number] 16:39:00* Test Item Value Reference Range Interpretation [...] = 3257) negative Negative - Negati ve [facility] [id number] 16:39:00* Test Item Value Reference Range Interpretation Comme nts POCT PREG (test code = 1605) Positive On board controls acceptable with C Line (test code = 3574) Yes POCT PREG LOT # (test code = 3575) POCT PREG TEST DATE ( test code = 3576) [facility] URINALYSIS W/O SPECIFIC [id number] 16:39:00* Test Item Value Reference Range Interpretation [...] = 3257) negative Negative - Negati ve [facility] [id number] 16:39:00* Test Item Value Reference Range Interpretation Comme nts POCT PREG (test code = 1605) Positive On board controls acceptable with C Line (test code = 3574) Yes POCT PREG LOT # (test code = 3575) POCT PREG TEST DATE ( test code = 3576) [facility] URINALYSIS W/O SPECIFIC [id number] 16:39:00* Test Item Value Reference Range Interpretation [...] = 3257) negative Negative - Negati ve [facility] MOLECULAR [id number] 20:25:03* Test Item Value Reference Range Interpretation Comme nts POCT Molecular FluA (test co de = 43559-7) Negative Negative POCT Molecular FluB (test co de = 63918-8) Negative Negative Lab Interpretation (test cod e = 41411-1) Normal [facility] MOLECULAR [id number] 20:18:15* Test Item Value Reference Range Interpretation Comme nts POCT Molecular Strep (test c ode = 66343-3) Negative Negative Lab Interpretation (test cod e = 86426-1) Normal [facility] CenterPOCT [id number] 20:10:00* Test Item Value Reference Range Interpretation Comme nts POCT PREG (test code = 1605) negative On board controls acceptable with C Line (test code = 3574) positive POCT PREG LOT # (test code = 3575) [id number] POCT PREG TEST DATE ( test code = 3576) 06-14-2021 Lab Interpretation (test cod e = 68593-3) Normal [facility] Notes Date/Time Note Provider Source 2022-10-14 15:18:16 NL+bjQpC7jxcNDZ57Ntu XijA6Vycaks mf+oYU2vmB7T6wjPOdrQNHJRPbeLbdW M45413-15-77G66:18:16 Pt will be loss to follow. 65282-2Fwixoauyq encounter CsczUM2536-25-50S85:18:34Teleph one encounter NoteTXT1.2.840.056760.1.13.104. 2.7.2.320312|[id number] banner for patient [id number] i Rodriguez RN[address] QfkbLoskfiztlJtjigngmxFIQE33681 99841HQRRGXXDGUQAUROQPAUGMV3475 -08-30T15:18:341.2.840.016181.1 .72.3.15|1.2.840.468796.1.13.10 4.2.7.2.727879_[id number] Maira Junior RN [facility] 2022-10-14 15:12:32 tModqalZ1NXaSIlPjJIu Y3/egLAxP6R KTol4wNxkmfokLD3aebOpsG01MeOVE5 722563-55-46T20:12:32 Patient has missed three appointments for 3 week post 09/17/22, 09/23/22, and 09/24/22. 33580-9Xcgsxkpnr encounter KlvdYT8493-12-96K99:13:51Teleph one encounter NoteTXT1.2.840.249718.1.13.104. 2.7.2.296420|[id number] [facility] patient yfld10684-1OkjnZJ43971984Qmtxqh a [address] VmkjHxawfqzdyOlulzjggjDCYO89034 42303JZHFFEJSTYHDWGRMBVNHLC1669 -08-30T15:13:511.2.840.760990.1 .72.3.15|1.2.840.120604.1.13.10 4.2.7.2.727879_[id number] Aris Warren [facility]"
[2023-06-02] MEDS ORDERED: predniSONE 20 MG TAB ONE (15:41)
[2023-06-02 22:40] VITALS: BP 155/93; TEMP 97.4; O2SAT 100
== END 2023-06-02 15:48 | disposition home or self-care (01) ==
LOC: ER 15:27
DX: R09.81 Nasal congestion (principal)
CPT/HCPCS: J7512

== ENCOUNTER 2023-09-25 09:18 | Emergency (ER) | payer OTHER, SELFPAY ==
--- NOTE | 2023-09-25 09:31 | ER ---
Nurse's Notes [facility] Name: Roberto Carlos Mcdermott Age: 23 yrs Sex: Female : 2000 Arrival Date: 09/25/2023 Time: 09:18 Bed 16 Private MD: Diagnosis: Infection of surgical incision, abdominal Presentation: 09/24 09:20 Chief complaint: Patient states: PURULENT DRAINAGE FROM ABD SURGICAL INCISION. INITIAL bp SURGERY AT [facility] 09/02 2/2 MX STAB WOUNDS. Coronavirus screen: At this time, the client does not indicate any symptoms associated with coronavirus-19. Ebola Screen: No symptoms or risks identified at this time. Initial Sepsis Screen: Does the patient meet any 2 criteria? No. Patient's initial sepsis screen is negative. Does the patient have a suspected source of infection? No. Patient's initial sepsis screen is negative. Risk Assessment: Do you want to hurt yourself or someone else?. Onset of symptoms is unknown. 09:20 Method Of Arrival: Ambulatory bp 09:20 Acuity: SHA 4 bp Triage Assessment: 09:22 General: Appears in no apparent distress. Behavior is calm, cooperative, appropriate bp for age. Pain: Denies pain. EENT: No deficits noted. Injury Description: LONGITUDINAL ABD INCISION FROM EXLAP ON 09/02. Historical: - Allergies: 09: No Known Allergies; bp - Home Meds: 09: None [Active]; bp - PMHx: 09:22 None; bp - Immunization history:: Adult Immunizations up to date. - Infectious Disease History:: Denies. - Social history:: Smoking status: Patient denies any tobacco usage or history of. Screenin:24 [facility] ED Fall Risk Assessment (Adult) History of falling in the last 3 months, bp including since admission No falls in past 3 months (0 pts) Confusion or Disorientation No (0 pts) Intoxicated or Sedated No (0 pts) Impaired Gait No (0 pts) Mobility Assist Device Used No (0 pt) Altered Elimination No (0 pt) Score/Fall Risk Level 0 - 2 = Low Risk. Abuse screen: Denies threats or abuse. Denies injuries from another. Nutritional screening: No deficits noted. Tuberculosis screening: No symptoms or risk factors identified. Assessment: :24 General: SEE TRIAGE NOTE. bp Vital Signs: 09:20 BP 116 / 74; Pulse 75; Resp 16; Temp 98; Pulse Ox 100% ; bp ED Course: :20 Patient arrived in ED. sb4 09:20 [facility] sb[facility] 09:20 Jaswinder Gomez MD is Attending Physician. sb4 09:20 Kalpesh Da Silva, RN is Primary Nurse. bp 09:22 Triage completed. bp 09:22 Arm band placed on. bp 09:24 Patient has correct armband on for positive identification. bp 09:50 No provider procedures requiring assistance completed. Patient did not have IV access bp during this emergency room visit. Wound care: to SURGICAL located on abdomen was dressed with 4X4s, Patient tolerated well. Administered Medications: No medications were administered Medication: :24 VIS not applicable for this client. bp Outcome: :30 Discharge ordered by . sb4 09:50 Discharged to home ambulatory, bp 09:50 Condition: stable 09:50 Discharge instructions given to patient, Instructed on discharge instructions, follow up and referral plans. medication usage, wound care, Demonstrated understanding of instructions, follow-up care, medications, wound care, Prescriptions given X 1, :50 Patient left the ED. bp Signatures: Kalpesh Da Silva RN RN bp Jodi Leon PA-C PA-C sb4
--- OUTSIDE RECORDS SUMMARY | 2023-09-25 09:32 | XMS REPORT | Continuity of Care Document ---
Author Name Unknown Address [address] [facility] [address] [place] [address] [facility] [address] [facility] [place]. [address] [place] [address] Care Team Providers Care Office Electrician Name Role Phone ALESHIA DODGE Primary Care Physician Macy Mondragon Attending Clinician MACY MEAD Attending Clinician OLIVIER Akhtar Attending Clinician Olivier Shelton Attending Clinician [phone] ABILIO JALLOH Attending Clinician YUE Pompa Attending Clinician Unavailcrys Akbar CNM, Yue Spangler Attending Clinician [phone] Doctor Unassigned, [place] Attending Clinician U narcisa Lal MD, Josette Denis Attending Clinician + Hardy BLOCK, Anders Saldivar Attending Clinician [phone] Lupis BLOCK, Frederic Attending Clinician [phone] EVAN ANTONY Attending Clinician Unavailable 1, [facility] Attending Clinician Unavailab maame FoShruthi Head Attending Clinician [phone] Provider, Dimas-Rmchfrancis Temp Attending Clinician Carolyn vailaJulian Condon Attending Clinician + JULIAN ROLAND Attending Clinician Unavail able Jaswinder Coleman DO Attending Clinician [phone] JASWINDER COLEMAN Attending Clinician Unavailable ANA ODEN Attending Clinician Unavailable Colby BLOCK, Ana Howe Attending Clinician [phone] Esther De La Torre MD Attending Clinician [phone] ESTHER DE LA TORRE Attending Clinician Unavailable ESTHER DE LA TORRE Attending Clinician Unavailable Benjamin GOLDSTEIN, Aleshia Spangler Attending Clinician [phone] ALESHIA DODGE Attending Clinician Unavailab MONIQUE Villeda Attending Clinician Unavailable Monique Barroso MD Attending Clinician [phone] Kimberly Marquez RN Attending Clinician Unavailable 2, [facility] Attending Clinician Unavaila Iglesia Tolentino MD Attending Clinician + [phone] IGLESIA BRIDGES Attending Clinician Unavaila ivan Ultrasound, [facility] Attending Clinician Unavaila QING Lawson Attending Clinician Unavailable Anna Cooley Attending Clinician [phone] GINA RICARDO Attending Clinician Unavailab Gina Beebe DO Attending Clinician [phone] Qing Morley MD Attending Clinician [phone] Harleen Miles MD Attending Clinician [phone] HARLEEN MILES Attending Clinician Tanya abad Ultrasound, [facility] Attending Clinician UnavailPARVEZ Leblanc Attending Clinician Unavailable Margo FUNES, Parvez Attending Clinician [phone] 2, [facility] Attending Clinician Unavailable Jonhna RICO, Rach Attending Clinician UnavailANNA Servin Attending Clinician Unavailable Hamida Chavez Attending Clinician [phone] Varghese RICO, Shaniqua Cheng Attending Clinician HAMIDA Ramirez Attending Clinician Unavailable Mallory BURCH, Samia Ruano Attending Clinician [phone] QING MORLEY Admitting Clinician Unavailable OLIVIER KAUFMAN Admitting Clinician Olivier Shelton Admitting Clinician [phone] ABILIO JALLOH Admitting Clinician UnavailJosette Zhang MD Admitting Clinician + JOSETTE LAL Admitting Clinician Unav ailable MONIQUE BARROSO Admitting Clinician Unavailable Monique Barroso MD Admitting Clinician [phone] HARLEEN MILES Admitting Clinician Tanya Morley MD, Qing Duncan Admitting Clinician [phone] Payers Payer Name Policy Type Policy Number Effective Date Expirati on Date Source [place] [employer] [id number] 2022 00:00:00 [facility] [id number] 2015 00:00:00 [facility] STAR [id number] 2023 00:00:00 2023 00:00:00 Problems Condition Name Condition Details Condition Category Status Onset Date Resolution Date Last Treatment Date Treating Clinician Comments Source PAIN POST SURGERY PAIN POST SURGERY Active 09/12/2023 [facility] Diagnosis Active 09-11 00:00: 00 2023-09-16 16:07:00 Ervin Gutierrezann STABBING W/ BLOOD STABBING W/ BLOOD Active 09/03/2023 [facility] Diagnosis Active 09-02 00:00: 00 2023-09-17 13:39:00 Ervin ZUÑIGA PAKO BILLING Active 09/03/2023 [facility] Diagnosis Active 7 00:00: 00 2023-09-16 16:03:00 Ervin Luke Anemia, Anemia, Disease Active 715 00:00: 00 [facility] Maternal varicella, non-immune Maternal varicella, non-immune Disease Active 15 00:00: 00 [facility] (spontaneo us vaginal delivery) (spontaneo us vaginal delivery) Disease Active 7 00:00: 00 [facility] Single live Single live Disease Active 08-28 00:00: 00 [facility] Chorioamni onitis Chorioamni onitis Disease Active 7 00:00: 00 [facility] Obstetrica l laceration Obstetrica l laceration Disease Active 7 00:00: 00 [facility] Forceps delivery Forceps delivery Disease Active 08-28 00:00: 00 [facility] 39 weeks gestation of 39 weeks gestation of Disease Active 08-26 00:00: 00 [facility] Obesity (BMI 30-39.9) Obesity (BMI 30-39.9) Disease Active 08-26 00:00: 00 [facility] Obesity affecting Obesity affecting Disease Active 08-17 00:00: 00 [facility] Hematuria, unspecifie d type Hematuria, unspecifie d type Disease Active 08-10 00:00: 00 [facility] Susceptibl e to varicella (non-immun e), currently Susceptibl e to varicella (non-immun e), currently Disease Active 08-10 00:00: 00 [facility] Heartburn during in third trimester Heartburn during in third trimester Disease Active 2023-0 5-26 00:00: 00 [facility] Low back pain during in third trimester Low back pain during in third trimester Disease Active 5-24 00:00: 00 [facility] COVID-19 affecting in third trimester COVID-19 affecting in third trimester Disease Active 430 00:00: 00 Overview: Formattin g of this note might be different from the original. + home test 3 [facility] Overweight (BMI 25.0-29.9) Overweight (BMI 25.0-29.9) Disease Active 4-30 00:00: 00 [facility] Vaginal bleeding in , second trimester Vaginal bleeding in , second trimester Disease Active 4-15 00:00: 00 [facility] 26 weeks gestation of 26 weeks gestation of Disease Active 4-15 00:00: 00 [facility] Umbilical vein abnormalit y affecting , single or unspecifie d fetus Umbilical vein abnormalit y affecting , single or unspecifie d fetus Disease Active 4-05 00:00: 00 [facility] BV (bacterial vaginosis) BV (bacterial vaginosis) Disease Active 1-12 00:00: 00 [facility] Supervisio n of high-risk Supervisio n of high-risk Disease Active 1-10 00:00: 00 [facility] History of miscarriag e History of miscarriag e Disease Active 1-10 00:00: 00 [facility] Vaginal discharge Vaginal discharge Disease Active 2016-02 0-06 00:00: 00 [facility] Depo-Prove ra contracept giovanny status Depo-Prove ra contracept giovanny status Disease Active 10-02 00:00: 00 [facility] LAC W/O FB OF ABD WALL, UNSP Q W/O PENET LAC W/O FB OF ABD WALL, UNSP Q W/O PENET Active [facility] Diagnosis Active 2023-09-17 13:39:00 Ervin Luke Abdominal pain (finding) Abdominal pain (finding) 09/13/2023 Diagnosis 09/15/2023 [facility] Diagnosis 09-12 02:32: 00 2023-09-15 21:55:55 2023-09-15 21:55:55 Ervin Luke Allergies, Adverse Reactions, Alerts Allergy Name Allergy Type Status Severity Reaction(s) Onset Date Inactive Date Treating Clinician Comments Source NO KNOWN ALLERGIE S Drug Class Active [facility] Social History Social Habit Start Date Stop Date Quantity Comments Source ASSERTION 2021-12-10 00:00:00 [facility] Exposure to SARS-CoV-2 (event) 2022-07-12 00:00:00 2022-07-22 20:23:[address] [facility] History of Social function 2022-01-17 00:00:00 2022-01-17 00:00:00 [facility] Tobacco use and exposure 2022-01-17 00:00:00 2022-01-17 00:00:[address] tobacco non-user [facility] Alcohol intake 2022-01-17 00:00:00 2022-01-17 00:00:00 0 /d [facility] Sex Assigned At 2000 00:00:00 1998 00:00:00 [facility] Smoking Status Start Date Stop Date Source Tobacco smoking status 2023-09-12 23:49:42 [facility] Never smoked tobacco [facility] Medications Ordered Medication Name Filled Medication Name Start Date Stop Date Current Medication? Ordering Clinician Indication Dosage Frequency Signature (SIG) Comments Components Source [place] 5/325 oral tablet 09-13 15:50: 00 Yes 1 tab, PO, BID, PRN Pain Score 4-6, X 5 day, # 10 tab, 0 Refill(s), [facility]acy: [id number], 165.1, cm, 09/12/23 18:09:00 CDT, Height, 68.182, kg, 09/12/23 18:09:00 CDT, Weight Ervin Luke naproxen 500 mg oral tablet 09-06 21:26: 00 Yes 500 mg = 1 tab, PO, Q12H, Non-steroi devora anti-infla mmatory. Take as needed for aches and pains with food, # 30 tab, 0 Refill(s), Pharmacy: [facility] #[id number], 165.1, cm, 09/03/23 14:27:00 CDT, Height, 68.182, kg, 09/03/23 14:27:00 CDT, Weight Ervin cheng Ti methocarbam ol 500 mg oral tablet 09-06 21:25: 00 Yes 1,000 mg = 2 tab, PO, TID, Muscle relaxant - take as needed for muscle aches and pains, # 30 tab, 0 Refill(s), [facility]acy: [id number], 165.1, cm, 09/03/23 14:27:00 CDT, Height, 68.182, kg, 09/03/23 14:27:00 CDT, Weight Ervin cheng Ti gabapentin 300 mg oral capsule 09-06 21:24: 00 Yes 300 mg = 1 cap, PO, Q8H, Take as needed for nerve pain, # 30 cap, 0 Refill(s), Pharmacy: [facility] #[id number], 165.1, cm, 09/03/23 14:27:00 CDT, Height, 68.182, kg, 09/03/23 14:27:00 CDT, Weight Ervin cheng Ti docusate-se nna 50 mg-8.6 mg oral tablet 09-06 21:23: 00 Yes 1 tab, PO, BID, PRN Constipati on, Take as needed for constipati on, # 30 tab, 0 Refill(s), Pharmacy: [facility] #[id number], 165.1, cm, 09/03/23 14:27:00 CDT, Height, 68.182, kg, 09/03/23 14:27:00 CDT, Weight Ervin Gutierrezann acetaminoph en 500 mg oral tablet. 09-06 21:16: 00 Yes 1 gm = 2 tab, PO, Q6H, # 50 tab, 0 Refill(s), Pharmacy: [id number], 165.1, cm, 09/03/23 14:27:00 CDT, Height, 68.182, kg, 09/03/23 14:27:00 CDT, Weight Ervin Luke gentamicin 340 mg in NaCl 0.9% (NS) [...] Site: Pelvic
Duration of Therapy: 7 days [facility] vitamin w/FA tablet 08-29 00:00: 00 Yes [id number] 1{tbl} Take 1 tablet by mouth in the morning. [facility] docusate 100 mg capsule 08-29 00:00: 00 Yes [id number] 200mg Take 2 capsules by mouth once daily as needed for Constipati on. [facility] ferrous sulfate 325 mg (65 mg iron) tablet 08-29 00:00: 00 Yes [id number] 325mg Take 1 tablet by mouth in the morning and 1 tablet in the evening. [facility] ibuprofen 600 mg tablet 08-29 00:00: 00 Yes [id number] 600mg Take 1 tablet by mouth every 6 (six) hours as needed (Pain). Take with food or milk. [facility] ampicillin (POLYCILLIN -N) 2,000 mg in [...] Site: Pelvic
Duration of therapy: 72 hours [facility] ibuprofen (IBU) tablet 600 mg 08-28 05:54: 04 Yes 600mg 600 mg, Oral, Q6HPRN, Starting on Wed08/28/22 at 0054, Until Discontinu ed, Routine, Pain (scale 4-6) [facility] acetaminoph en (TYLENOL) tablet 650 mg 08-28 05:54: 04 Yes 650mg 650 mg, Oral, Q6HPRN, Starting on Wed08/28/22 at 0054, Until Discontinu ed, Routine, Pain (scale 1-3) [facility] diphenhydrA MINE (BENADRYL) tablet 25 mg 08-28 05:54: 04 Yes 25mg 25 mg, Oral, Q6HPRN, Starting on Wed08/28/22 at 0054, Until Discontinu ed, Routine, Sleep, Itching [facility] ondansetron (ZOFRAN (PF)) injection 4 mg 08-28 05:54: 04 Yes 4mg 4 mg, Slow IV Push, Q8HPRN, Starting on Wed08/28/22 at 0054, Until Discontinu ed, Routine, Nausea and Vomiting (N/V) [facility] simethicone (GAS RELIEF (SIMETHICON E)) chewable tablet 160 mg 08-28 05:54: 04 Yes 160mg 160 mg, Oral, PC+HSPRN, Starting on Wed08/28/22 at 0054, Until Discontinu ed, Routine, Gas [facility] docusate (COLACE) capsule 200 mg 08-28 05:54: 04 Yes 200mg 200 mg, Oral, QDAILYPRN, Starting on Wed08/28/22 at 0054, Until Discontinu ed, Routine, Constipati on [facility] magnesium hydroxide (MILK OF MAGNESIA) 400 mg/5 mL suspension 30 mL 08-28 05:54: 04 Yes 30mL 30 mL, Oral, QDAILYPRN, Starting on Wed08/28/22 at 0054, Until Discontinu ed, Routine, Constipati on [facility] benzocaine- menthol (DERMOPLAST ) 20-0.5 % topical spray 08-28 05:54: 04 Yes Topical, PRN, Starting on Wed08/28/22 at 0054, Until Discontinu ed, Routine, Perineum discomfort [facility] lactated ringers IV infusion 1,000 mL 08-28 05:00: 00 08-28 05:53 :08 No 1000mL at 125 mL/hr, 1,000 mL, IV Infusion, ONCE, 1 dose, On Wed08/28/22 at 0000, AFUA [facility] ibuprofen (IBU) tablet 600 mg 08-28 04:55: 00 Yes 600mg 600 mg, Oral, Q6HPRN, Starting on Wed08/27/22 at 2355, Until Discontinu ed, Routine, Pain (scale 1-3) [facility] oxytocin (PITOCIN) 30 units in NS 500 mL IV infusion 08-28 04:54: 54 Yes 600mL/h 600 mL/hr, IV Infusion, PRN, For post delivery uterine atony., Starting on Wed08/27/[address] at 600 mL/hr for 1 hr then 150 mL/hr for 1 hr.
[facility] oxytocin (PITOCIN) 30 units in NS 500 mL IV infusion 08-28 04:54: 54 Yes 300mL/h 300 mL/hr, IV Infusion, SEE-INSTRU CTIONS, Starting on Wed08/27/[address] at 300 mL/hr for 1 hr then 150 mL/hr for 1 hr. For post delivery uterotonic .
[facility] gentamicin 340 mg in NaCl 0.9% [...] Site: Pelvic
Duration of therapy: 72 hours [facility] acetaminoph en (TYLENOL) tablet 1,000 mg 08-28 01:15: 00 08-28 00:34 :00 No 1000mg 1,000 mg, Oral, ONCE NOW, 1 dose, On Wed08/27/22 at 2014, Routine [facility] ampicillin (POLYCILLIN -N) 2,000 mg in NaCl 0.9% (NS) 100 mL MINI-BAG 08-28 01:15: 00 08-28 06:02 :33 No 2g 2,000 mg (2 g), IV Piggyback, Q6H ABX, First dose on Whitney 08/27/22 at 2014, Until Discontinu ed, Administer over 30 Minutes, 100 mL
Reas on for Anti-Infec tive: Empiric Therapy for Suspected Infection< br>Empiric Therapy Site: Pelvic
Duration of therapy: 72 hours [facility] ondansetron (ZOFRAN (PF)) injection 4 mg 08-27 14:15: 00 08-27 13:15 :00 No 4mg 4 mg, Slow IV Push, ONCE, On Wed08/27/22 at 0915, For 1 dose
Do ses of ondansetro n 16 mg and above need to be administer ed via IV piggyback. For Dose >=24mg ECG monitoring is advisable.
[facility] ropivacaine 0.2 % (NAROPIN (PF)) epidural infusion 08-27 12:19: 00 08-28 06:11 :37 No Epidural, CONTINUOUS PRN, Starting on Wed08/27/22 at 0719, Until Wed08/28/22 at 0111, Routine, Intra-op [facility] lidocaine-e pinephrine (XYLOCAINE W/EPINEPHRI NE) 1.5 %-1:200,000 injection 08-27 12:17: 00 08-28 06:11 :37 No Intraderma l, ONCE INTRA PROCEDURE, Starting on Wed08/27/22 at 0717, Until Wed08/28/22 at 0111, Routine, Intra-op [facility] oxytocin (PITOCIN) 30 units in NS 500 mL IV infusion 08-27 10:29: 56 Yes 2mU/min at 2-40 mL/hr, IV Infusion, TITRATE, Starting on Wed08/27/22 at 0529, Until Discontinu ed, AFUA [facility] lactated ringers IV infusion 500 mL 08-27 10:15: 00 08-27 12:24 :00 No 500mL at 999 mL/hr, 500 mL, IV Infusion, ONCE, 1 dose, On Wed08/27/22 at 0515, Routine [facility] lactated ringers IV infusion 500 mL 08-27 09:29: 47 Yes 500mL at 999 mL/hr, 500 mL, IV Infusion, PRN - SEE INSTRUCTIO NS, 1 dose, Starting on Wed08/27/22 at 042, Until Discontinu ed, Routine [facility] sodium citrate-cit bravo acid (BICITRA) 500-334 mg/5 mL solution 30 mL 08-27 09:29: 47 08-27 12:24 :00 No 30mL 30 mL, Oral, PRE-PROCED URE ONCE, 1 dose, Starting on Wed08/27/22 at 0429, Until Wed08/27/22 at 0724, Routine, Surgery/Pr ocedure [facility] proMETHazin e (PHENERGAN) 12.5 mg in NS 50 mL IV piggyback (CNR) 08-27 05:30: 00 08-27 05:37 :00 No 12.5mg 12.5 mg, IV Piggyback, at 200 mL/hr Administer over 15 Minutes, ONCE, 1 dose, On Whitney 08/27/22 at 0030, Routine [facility] morpHINE (4 mg/mL) injection 4 mg 08-27 05:15: 00 08-27 05:22 :00 No 4mg 4 mg, Slow IV Push, ONCE, 1 dose, On Whitney 08/27/22 at 0015, Routine [facility] sodium citrate-cit bravo acid (BICITRA) 500-334 mg/5 mL solution 30 mL 08-26 20:35: 38 Yes 30mL 30 mL, Oral, PRE-PROCED URE ONCE, 1 dose, Starting on Wed08/26/22 at 1535, Until Discontinu ed, Routine, Surgery/Pr ocedure [facility] lactated ringers IV infusion 500 mL 08-26 20:35: 38 Yes 500mL at 999 mL/hr, 500 mL, IV Infusion, PRN - SEE INSTRUCTIO NS, 1 dose, Starting on Wed08/26/22 at 1535, Until Discontinu ed, Routine [facility] morpHINE (4 mg/mL) injection 4 mg 08-26 20:31: 20 Yes 4mg 4 mg, Slow IV Push, Q4HPRN, Starting on Wed08/26/22 at 1531, Until Discontinu ed, Routine, Pain (scale 4-6) [facility] sodium citrate-cit bravo acid (BICITRA) 500-334 mg/5 mL solution 30 mL 08-26 20:15: 10 Yes 30mL 30 mL, Oral, PRE-PROCED URE ONCE, 1 dose, Starting on Wed08/26/22 at 1515, Until Discontinu ed, Routine, Surgery/Pr ocedure [facility] lidocaine 1% (XYLOCAINE) 10 mg/mL (1 %) injection 50 mL 08-26 20:15: 10 Yes 50mL 50 mL, Infiltrati on, PRN - SEE INSTRUCTIO NS, Starting on Wed08/26/22 at 1515, Until Discontinu ed, Routine, Local anesthesia , For laceration repair only as a local anesthetic as indicated. [facility] lidocaine 1% (PF) (XYLOCAINE) injection 0.3 mL 08-26 20:15: 10 Yes .3mL 0.3 mL, Infiltrati on, PRN - SEE INSTRUCTIO NS, Starting on Wed08/26/22 at 1515, Until Discontinu ed, Routine, Local anesthesia , For IV line placement only as a local anesthetic . [facility] lactated ringers IV infusion 500 mL 08-26 20:15: 10 Yes 500mL at 999 mL/hr, 500 mL, IV Infusion, PRN - SEE INSTRUCTIO NS, Starting on Wed08/26/22 at 1515, Until Discontinu ed, Routine [facility] D5W-LR IV infusion 1,000 mL 08-26 20:15: 10 Yes 1000mL at 1-125 mL/hr, IV Infusion, TITRATE, Starting on Wed08/26/22 at 1515, Until Discontinu ed, Routine [facility] famotidine (PEPCID) 20 mg tablet 07-10 00:00: 00 08-29 00:00 :00 No [id number] 20mg Take 1 tablet by mouth in the morning and 1 tablet in the evening. [facility] PROMETHAZIN E 25 mg tablet 06-08 00:00: 00 07-10 00:00 :00 No [id number] TAKE 1 TABLET BY MOUTH EVERY 6 HOURS NEEDED FOR NAUSEA AND VOMITING . [facility] Nitrofurant oin&Nit. Macrocryst (MACROBID) 100 mg capsule 100 mg 04-21 06:00: 00 04-21 05:53 :00 No 100mg 100 mg, Oral, ONCE, 1 dose, On Wed04/21/22 at 0000, Routine
Reason for Anti-Infec tive: Documented Infection< br>Documen jaden Infection Site: Urine
D uration of Therapy: Other (see Comments) [facility] acetaminoph en (TYLENOL) tablet 650 mg 04-21 05:47: 03 Yes 650mg 650 mg, Oral, Q6HPRN, Starting on Wed04/20/22 at 2347, Until Discontinu ed, Routine, Pain (scale 4-6) [facility] Nitrofurant oin&Nit. Macrocryst 100 mg capsule 07 00:00: 00 05-20 00:00 :00 No [id number] 100mg Take 1 capsule by mouth in the morning and 1 capsule in the evening. [facility] metroNIDAZO LE 500 mg tablet - 00:00: 00 03-19 00:00 :00 No [id number] 500mg Take 1 tablet by mouth in the morning and 1 tablet in the evening. [facility] metroNIDAZO LE 500 mg tablet - 00:00: 00 03-05 05:59 :00 No [id number] 500mg Take 1 tablet by mouth in the morning and 1 tablet in the evening. Do all this for 7 days. [facility] vit 33-iron-fol ic-dha (SELECT-OB + DHA) 29 mg iron-1 mg -250 mg combo pack 2021-02 00:00: 00 Yes [id number] Take 1 combo pack daily [facility] vit 33-iron-fol ic-dha (SELECT-OB + DHA) 29 mg iron-1 mg -250 mg combo pack 2021-02 00:00: 00 08-29 00:00 :00 No [id number] Take 1 combo pack daily [facility] proMETHazin e 25 mg tablet 2021-02 00:00: 00 06-08 00:00 :00 No [id number] 25mg Take 1 tablet by mouth every 6 (six) hours as needed for Nausea and Vomiting (N/V). [facility] No known medications 2020-02 14:27: 36 No [facility] phenazopyri dine 200 mg tablet 08-12 00:00: 00 Yes 200mg Take 1 tablet by mouth 3 (three) times daily. [facility] Nitrofurant oin&Nit. Macrocryst (MACROBID) 100 mg capsule 08-12 00:00: 00 Yes 100mg Take 1 capsule by mouth 2 (two) times daily. [facility] naproxen sodium 550 mg tablet 08-12 00:00: 00 Yes 550mg Take 1 tablet by mouth 2 (two) times daily with meals. [facility] promethazin e-codeine 6.25-10 mg/5 mL syrup 02-25 00:00: 00 Yes 5mL Take 5 mL by mouth 4 (four) times daily as needed for Cough. [facility] traMADOL (ULTRAM) 50 mg tablet 02-25 00:00: 00 Yes 50mg Take 1 tablet by mouth every 6 (six) hours as needed for Pain (scale 4-6). [facility] No known medications No Un elizabeth [facility] Immunizations Ordered Immunization Name Filled Immunization Name Date Status Comments Source Varicella (varivax)(chicken pox) 2022-08-29 00:00:[address] [facility] Varicella (varivax)(chicken pox) 2022-08-29 00:00:[address] [facility] Varicella (varivax)(chicken pox) 2022-08-29 00:00:[address] [facility] Influenza Virus Vaccine Quad IM, Preserv and ABX Free 6 MO-64 YRS 2022-03-19 00:00:[address] [facility] Influenza Virus Vaccine Quad IM, Preserv and ABX Free 6 MO-64 YRS 2022-03-19 00:00:[address] [facility] Influenza Virus Vaccine Quad IM, Preserv and ABX Free 6 MO-64 YRS 2022-03-19 00:00:[address] [facility] Influenza Virus Vaccine Quad IM, Preserv and ABX Free 6 MO-64 YRS 2022-03-19 00:00:[address] [facility] Influenza Virus Vaccine Quad IM, Preserv and ABX Free 6 MO-64 YRS 2022-03-19 00:00:[address] [facility] Influenza Virus Vaccine Quad IM, Preserv and ABX Free 6 MO-64 YRS 2022-03-19 00:00:[address] [facility] Influenza Virus Vaccine Quad IM, Preserv and ABX Free 6 MO-64 YRS 2022-03-19 00:00:[address] [facility] Influenza Virus Vaccine Quad IM, Preserv and ABX Free 6 MO-64 YRS 2022-03-19 00:00:[address] [facility] Influenza Virus Vaccine Quad IM, Preserv and ABX Free 6 MO-64 YRS 2022-03-19 00:00:[address] [facility] Influenza Virus Vaccine Quad IM, Preserv and ABX Free 6 MO-64 YRS 2022-03-19 00:00:[address] [facility] Influenza Virus Vaccine Quad IM, Preserv and ABX Free 6 MO-64 YRS 2022-03-19 00:00:[address] [facility] Influenza Virus Vaccine Quad IM, Preserv and ABX Free 6 MO-64 YRS 2022-03-19 00:00:[address] [facility] Influenza Virus Vaccine Quad IM, Preserv and ABX Free 6 MO-64 YRS 2022-03-19 00:00:[address] [facility] Influenza Virus Vaccine Quad IM, Preserv and ABX Free 6 MO-64 YRS 2022-03-19 00:00:[address] [facility] Influenza Virus Vaccine Quad IM, Preserv and ABX Free 6 MO-64 YRS 2022-03-19 00:00:[address] [facility] Influenza Virus Vaccine Quad IM, Preserv and ABX Free 6 MO-64 YRS 2022-03-19 00:00:[address] [facility] Influenza Virus Vaccine Quad IM, Preserv and ABX Free 6 MO-64 YRS 2022-03-19 00:00:[address] [facility] Influenza Virus Vaccine Quad IM, Preserv and ABX Free 6 MO-64 YRS 2022-03-19 00:00:[address] [facility] Influenza Virus Vaccine Quad IM, Preserv and ABX Free 6 MO-64 YRS 2022-03-19 00:00:[address] [facility] Influenza Virus Vaccine Quad IM, Preserv and ABX Free 6 MO-64 YRS 2022-03-19 00:00:[address] [facility] [facility] Influenza Virus Vaccine Quad IM, Preserv and ABX Free 6 MO-64 YRS 2022-03-19 00:00:[address] [facility] Influenza Virus Vaccine Quad IM, Preserv and ABX Free 6 MO-64 YRS 2022-03-19 00:00:[address] [facility] Influenza Virus Vaccine Quad IM, Preserv and ABX Free 6 MO-64 YRS 2022-03-19 00:00:[address] [facility] Influenza Virus Vaccine Quad IM, Preserv and ABX Free 6 MO-64 YRS 2022-03-19 00:00:[address] [facility] Influenza Virus Vaccine Quad IM, Preserv and ABX Free 6 MO-64 YRS 2022-03-19 00:00:[address] [facility] Influenza Virus Vaccine Quad IM, Preserv and ABX Free 6 MO-64 YRS 2022-03-19 00:00:[address] [facility] Influenza Virus Vaccine Quad IM, Preserv and ABX Free 6 MO-64 YRS 2022-03-19 00:00:[address] [facility] Influenza Virus Vaccine Quad IM, Preserv and ABX Free 6 MO-64 YRS 2022-03-19 00:00:[address] [facility] Influenza Virus Vaccine Quad IM, Preserv and ABX Free 6 MO-64 YRS 2022-03-19 00:00:[address] [facility] Influenza Virus Vaccine Quad IM, Preserv and ABX Free 6 MO-64 YRS 2022-03-19 00:00:[address] [facility] Influenza Virus Vaccine Quad IM, Preserv and ABX Free 6 MO-64 YRS 2022-03-19 00:00:[address] [facility] Influenza Virus Vaccine Quad IM, Preserv and ABX Free 6 MO-64 YRS 2022-03-19 00:00:[address] [facility] Influenza Virus Vaccine Quad IM, Preserv and ABX Free 6 MO-64 YRS 2022-03-19 00:00:[address] [facility] Influenza Virus Vaccine Quad IM, Preserv and ABX Free 6 MO-64 YRS 2022-03-19 00:00:[address] [facility] Influenza Virus Vaccine Quad IM, Preserv and ABX Free 6 MO-64 YRS 2022-03-19 00:00:[address] [facility] Influenza Virus Vaccine Quad IM, Preserv and ABX Free 6 MO-64 YRS 2022-03-19 00:00:[address] [facility] Influenza Virus Vaccine Quad IM, Preserv and ABX Free 6 MO-64 YRS 2022-03-19 00:00:[address] [facility] Influenza Virus Vaccine Quad IM, Preserv and ABX Free 6 MO-64 YRS 2022-03-19 00:00:[address] [facility] Influenza Virus Vaccine Quad IM, Preserv and ABX Free 6 MO-64 YRS 2022-03-19 00:00:[address] [facility] Influenza Virus Vaccine Quad IM, Preserv and ABX Free 6 MO-64 YRS 2022-03-19 00:00:[address] [facility] Influenza Virus Vaccine Quad IM, Preserv and ABX Free 6 MO-64 YRS 2022-03-19 00:00:[address] [facility] Influenza Virus Vaccine Quad IM, Preserv and ABX Free 6 MO-64 YRS 2022-03-19 00:00:[address] [facility] Influenza Virus Vaccine Quad IM, Preserv and ABX Free 6 MO-64 YRS 2022-03-19 00:00:[address] [facility] Influenza Virus Vaccine Quad IM, Preserv and ABX Free 6 MO-64 YRS 2022-03-19 00:00:[address] [facility] Influenza Virus Vaccine Quad IM, Preserv and ABX Free 6 MO-64 YRS 2022-03-19 00:00:[address] [facility] Influenza Virus Vaccine Quad IM, Preserv and ABX Free 6 MO-64 YRS 2022-03-19 00:00:[address] [facility] Influenza Virus Vaccine Quad IM, Preserv and ABX Free 6 MO-64 YRS 2022-03-19 00:00:[address] [facility] Influenza Virus Vaccine Quad IM, Preserv and ABX Free 6 MO-64 YRS 2022-03-19 00:00:[address] [facility] Influenza Virus Vaccine Quad IM, Preserv and ABX Free 6 MO-64 YRS 2022-03-19 00:00:[address] [facility] Influenza Virus Vaccine Quad IM, Preserv and ABX Free 6 MO-64 YRS 2022-03-19 00:00:[address] [facility] Influenza Virus Vaccine Quad IM, Preserv and ABX Free 6 MO-64 YRS 2022-03-19 00:00:[address] [facility] Influenza Virus Vaccine Quad IM, Preserv and ABX Free 6 MO-64 YRS 2022-03-19 00:00:[address] [facility] Influenza Virus Vaccine Quad IM, Preserv and ABX Free 6 MO-64 YRS 2022-03-19 00:00:[address] [facility] Influenza Virus Vaccine Quad IM, Preserv and ABX Free 6 MO-64 YRS 2022-03-19 00:00:[address] [facility] Influenza Virus Vaccine Quad IM, Preserv and ABX Free 6 MO-64 YRS 2022-03-19 00:00:[address] [facility] Influenza Virus Vaccine Quad IM, Preserv and ABX Free 6 MO-64 YRS 2022-03-19 00:00:[address] [facility] Influenza Virus Vaccine Quad IM, Preserv and ABX Free 6 MO-64 YRS 2022-03-19 00:00:[address] [facility] Influenza Virus Vaccine Quad IM, Preserv and ABX Free 6 MO-64 YRS 2022-03-19 00:00:[address] [facility] Influenza Virus Vaccine Quad IM, Preserv and ABX Free 6 MO-64 YRS 2022-03-19 00:00:[address] [facility] Influenza Virus Vaccine Quad IM, Preserv and ABX Free 6 MO-64 YRS 2022-03-19 00:00:[address] [facility] Influenza Virus Vaccine Quad IM, Preserv and ABX Free 6 MO-64 YRS 2022-03-19 00:00:[address] [facility] Influenza Virus Vaccine Quad IM, Preserv and ABX Free 6 MO-64 YRS 2022-03-19 00:00:[address] [facility] Influenza Virus Vaccine Quad IM, Preserv and ABX Free 6 MO-64 YRS 2022-03-19 00:00:[address] [facility] Influenza Virus Vaccine Quad IM, Preserv and ABX Free 6 MO-64 YRS 2022-03-19 00:00:[address] [facility] Influenza Virus Vaccine Quad IM, Preserv and ABX Free 6 MO-64 YRS 2022-03-19 00:00:[address] [facility] Influenza Virus Vaccine Quad IM, Preserv and ABX Free 6 MO-64 YRS 2022-03-19 00:00:[address] [facility] SARS-COV-2 COVID-19 PFIZER VACCINE 2020-11-13 00:00:[address] [facility] SARS-COV-2 COVID-19 PFIZER VACCINE 2020-11-13 00:00:[address] [facility] SARS-COV-2 COVID-19 PFIZER VACCINE 2020-11-13 00:00:[address] [facility] SARS-COV-2 COVID-19 PFIZER VACCINE 2020-11-13 00:00:[address] [facility] SARS-COV-2 COVID-19 PFIZER VACCINE 2020-11-13 00:00:[address] [facility] SARS-COV-2 COVID-19 PFIZER VACCINE 2020-11-13 00:00:[address] [facility] SARS-COV-2 COVID-19 PFIZER VACCINE 2020-11-13 00:00:[address] [facility] SARS-COV-2 COVID-19 PFIZER VACCINE 2020-11-13 00:00:[address] [facility] SARS-COV-2 COVID-19 PFIZER VACCINE 2020-11-13 00:00:[address] [facility] SARS-COV-2 COVID-19 PFIZER VACCINE 2020-11-13 00:00:[address] [facility] SARS-COV-2 COVID-19 PFIZER VACCINE 2020-11-13 00:00:[address] [facility] SARS-COV-2 COVID-19 PFIZER VACCINE 2020-11-13 00:00:[address] [facility] SARS-COV-2 COVID-19 PFIZER VACCINE 2020-11-13 00:00:[address] [facility] SARS-COV-2 COVID-19 PFIZER VACCINE 2020-11-13 00:00:[address] [facility] SARS-COV-2 COVID-19 PFIZER VACCINE 2020-11-13 00:00:[address] [facility] SARS-COV-2 COVID-19 PFIZER VACCINE 2020-11-13 00:00:[address] [facility] SARS-COV-2 COVID-19 PFIZER VACCINE 2020-11-13 00:00:[address] [facility] SARS-COV-2 COVID-19 PFIZER VACCINE 2020-11-13 00:00:[address] [facility] SARS-COV-2 COVID-19 PFIZER VACCINE 2020-11-13 00:00:[address] [facility] SARS-COV-2 COVID-19 PFIZER VACCINE 2020-11-13 00:00:[address] [facility] SARS-COV-2 COVID-19 PFIZER VACCINE 2020-11-13 00:00:[address] [facility] SARS-COV-2 COVID-19 PFIZER VACCINE 2020-11-13 00:00:[address] [facility] SARS-COV-2 COVID-19 PFIZER VACCINE 2020-11-13 00:00:[address] [facility] SARS-COV-2 COVID-19 PFIZER VACCINE 2020-11-13 00:00:[address] [facility] SARS-COV-2 COVID-19 PFIZER VACCINE 2020-11-13 00:00:[address] [facility] SARS-COV-2 COVID-19 PFIZER VACCINE 2020-11-13 00:00:[address] [facility] SARS-COV-2 COVID-19 PFIZER VACCINE 2020-11-13 00:00:[address] [facility] SARS-COV-2 COVID-19 PFIZER VACCINE 2020-11-13 00:00:[address] [facility] SARS-COV-2 COVID-19 PFIZER VACCINE 2020-11-13 00:00:[address] [facility] SARS-COV-2 COVID-19 PFIZER VACCINE 2020-11-13 00:00:[address] [facility] SARS-COV-2 COVID-19 PFIZER VACCINE 2020-11-13 00:00:[address] [facility] SARS-COV-2 COVID-19 PFIZER VACCINE 2020-11-13 00:00:[address] [facility] SARS-COV-2 COVID-19 PFIZER VACCINE 2020-11-13 00:00:[address] [facility] SARS-COV-2 COVID-19 PFIZER VACCINE 2020-11-13 00:00:[address] [facility] SARS-COV-2 COVID-19 PFIZER VACCINE 2020-11-13 00:00:[address] [facility] SARS-COV-2 COVID-19 PFIZER VACCINE 2020-11-13 00:00:[address] [facility] SARS-COV-2 COVID-19 PFIZER VACCINE 2020-11-13 00:00:[address] [facility] SARS-COV-2 COVID-19 PFIZER VACCINE 2020-11-13 00:00:[address] [facility] SARS-COV-2 COVID-19 PFIZER VACCINE 2020-11-13 00:00:[address] [facility] SARS-COV-2 COVID-19 PFIZER VACCINE 2020-11-13 00:00:[address] [facility] SARS-COV-2 COVID-19 PFIZER VACCINE 2020-11-13 00:00:[address] [facility] SARS-COV-2 COVID-19 PFIZER VACCINE 2020-11-13 00:00:[address] [facility] SARS-COV-2 COVID-19 PFIZER VACCINE 2020-11-13 00:00:[address] [facility] SARS-COV-2 COVID-19 PFIZER VACCINE 2020-11-13 00:00:[address] [facility] SARS-COV-2 COVID-19 PFIZER VACCINE 2020-11-13 00:00:[address] [facility] SARS-COV-2 COVID-19 PFIZER VACCINE 2020-11-13 00:00:[address] [facility] SARS-COV-2 COVID-19 PFIZER VACCINE 2020-11-13 00:00:[address] [facility] SARS-COV-2 COVID-19 PFIZER VACCINE 2020-11-13 00:00:[address] [facility] SARS-COV-2 COVID-19 PFIZER VACCINE 2020-11-13 00:00:[address] [facility] SARS-COV-2 COVID-19 PFIZER VACCINE 2020-11-13 00:00:[address] [facility] SARS-COV-2 COVID-19 PFIZER VACCINE 2020-11-13 00:00:[address] [facility] SARS-COV-2 COVID-19 PFIZER VACCINE 2020-11-13 00:00:[address] [facility] SARS-COV-2 COVID-19 PFIZER VACCINE 2020-11-13 00:00:[address] [facility] SARS-COV-2 COVID-19 PFIZER VACCINE 2020-11-13 00:00:[address] [facility] SARS-COV-2 COVID-19 PFIZER VACCINE 2020-11-13 00:00:[address] [facility] SARS-COV-2 COVID-19 PFIZER VACCINE 2020-11-13 00:00:[address] [facility] SARS-COV-2 COVID-19 PFIZER VACCINE 2020-11-13 00:00:[address] [facility] SARS-COV-2 COVID-19 PFIZER VACCINE 2020-11-13 00:00:[address] [facility] SARS-COV-2 COVID-19 PFIZER VACCINE 2020-11-13 00:00:[address] [facility] SARS-COV-2 COVID-19 PFIZER VACCINE 2020-11-13 00:00:[address] [facility] SARS-COV-2 COVID-19 PFIZER VACCINE 2020-11-13 00:00:[address] [facility] SARS-COV-2 COVID-19 PFIZER VACCINE 2020-11-13 00:00:[address] [facility] SARS-COV-2 COVID-19 PFIZER VACCINE 2020-11-13 00:00:[address] [facility] SARS-COV-2 COVID-19 PFIZER VACCINE 2020-11-13 00:00:[address] [facility] SARS-COV-2 COVID-19 PFIZER VACCINE 2020-11-13 00:00:[address] [facility] SARS-COV-2 COVID-19 PFIZER VACCINE 2020-11-13 00:00:[address] [facility] SARS-COV-2 COVID-19 PFIZER VACCINE 2020-11-13 00:00:[address] [facility] SARS-COV-2 COVID-19 PFIZER VACCINE 2020-11-13 00:00:[address] [facility] SARS-COV-2 COVID-19 PFIZER VACCINE 2020-11-13 00:00:[address] [facility] SARS-COV-2 COVID-19 PFIZER VACCINE 2020-11-13 00:00:[address] [facility] SARS-COV-2 COVID-19 PFIZER VACCINE 2020-10-23 00:00:[address] [facility] SARS-COV-2 COVID-19 PFIZER VACCINE 2020-10-23 00:00:[address] [facility] SARS-COV-2 COVID-19 PFIZER VACCINE 2020-10-23 00:00:[address] [facility] SARS-COV-2 COVID-19 PFIZER VACCINE 2020-10-23 00:00:[address] [facility] SARS-COV-2 COVID-19 PFIZER VACCINE 2020-10-23 00:00:[address] [facility] SARS-COV-2 COVID-19 PFIZER VACCINE 2020-10-23 00:00:[address] [facility] SARS-COV-2 COVID-19 PFIZER VACCINE 2020-10-23 00:00:[address] [facility] SARS-COV-2 COVID-19 PFIZER VACCINE 2020-10-23 00:00:[address] [facility] SARS-COV-2 COVID-19 PFIZER VACCINE 2020-10-23 00:00:[address] [facility] SARS-COV-2 COVID-19 PFIZER VACCINE 2020-10-23 00:00:[address] [facility] SARS-COV-2 COVID-19 PFIZER VACCINE 2020-10-23 00:00:[address] [facility] SARS-COV-2 COVID-19 PFIZER VACCINE 2020-10-23 00:00:[address] [facility] SARS-COV-2 COVID-19 PFIZER VACCINE 2020-10-23 00:00:[address] [facility] SARS-COV-2 COVID-19 PFIZER VACCINE 2020-10-23 00:00:[address] [facility] SARS-COV-2 COVID-19 PFIZER VACCINE 2020-10-23 00:00:[address] [facility] SARS-COV-2 COVID-19 PFIZER VACCINE 2020-10-23 00:00:[address] [facility] SARS-COV-2 COVID-19 PFIZER VACCINE 2020-10-23 00:00:[address] [facility] SARS-COV-2 COVID-19 PFIZER VACCINE 2020-10-23 00:00:[address] [facility] SARS-COV-2 COVID-19 PFIZER VACCINE 2020-10-23 00:00:[address] [facility] SARS-COV-2 COVID-19 PFIZER VACCINE 2020-10-23 00:00:[address] [facility] SARS-COV-2 COVID-19 PFIZER VACCINE 2020-10-23 00:00:[address] [facility] SARS-COV-2 COVID-19 PFIZER VACCINE 2020-10-23 00:00:[address] [facility] SARS-COV-2 COVID-19 PFIZER VACCINE 2020-10-23 00:00:[address] [facility] SARS-COV-2 COVID-19 PFIZER VACCINE 2020-10-23 00:00:[address] [facility] SARS-COV-2 COVID-19 PFIZER VACCINE 2020-10-23 00:00:[address] [facility] SARS-COV-2 COVID-19 PFIZER VACCINE 2020-10-23 00:00:[address] [facility] SARS-COV-2 COVID-19 PFIZER VACCINE 2020-10-23 00:00:[address] [facility] SARS-COV-2 COVID-19 PFIZER VACCINE 2020-10-23 00:00:[address] [facility] SARS-COV-2 COVID-19 PFIZER VACCINE 2020-10-23 00:00:[address] [facility] SARS-COV-2 COVID-19 PFIZER VACCINE 2020-10-23 00:00:[address] [facility] SARS-COV-2 COVID-19 PFIZER VACCINE 2020-10-23 00:00:[address] [facility] SARS-COV-2 COVID-19 PFIZER VACCINE 2020-10-23 00:00:[address] [facility] SARS-COV-2 COVID-19 PFIZER VACCINE 2020-10-23 00:00:[address] [facility] SARS-COV-2 COVID-19 PFIZER VACCINE 2020-10-23 00:00:[address] [facility] SARS-COV-2 COVID-19 PFIZER VACCINE 2020-10-23 00:00:[address] [facility] SARS-COV-2 COVID-19 PFIZER VACCINE 2020-10-23 00:00:[address] [facility] SARS-COV-2 COVID-19 PFIZER VACCINE 2020-10-23 00:00:[address] [facility] SARS-COV-2 COVID-19 PFIZER VACCINE 2020-10-23 00:00:[address] [facility] SARS-COV-2 COVID-19 PFIZER VACCINE 2020-10-23 00:00:[address] [facility] SARS-COV-2 COVID-19 PFIZER VACCINE 2020-10-23 00:00:[address] [facility] SARS-COV-2 COVID-19 PFIZER VACCINE 2020-10-23 00:00:[address] [facility] SARS-COV-2 COVID-19 PFIZER VACCINE 2020-10-23 00:00:[address] [facility] SARS-COV-2 COVID-19 PFIZER VACCINE 2020-10-23 00:00:[address] [facility] SARS-COV-2 COVID-19 PFIZER VACCINE 2020-10-23 00:00:[address] [facility] SARS-COV-2 COVID-19 PFIZER VACCINE 2020-10-23 00:00:[address] [facility] SARS-COV-2 COVID-19 PFIZER VACCINE 2020-10-23 00:00:[address] [facility] SARS-COV-2 COVID-19 PFIZER VACCINE 2020-10-23 00:00:[address] [facility] SARS-COV-2 COVID-19 PFIZER VACCINE 2020-10-23 00:00:[address] [facility] SARS-COV-2 COVID-19 PFIZER VACCINE 2020-10-23 00:00:[address] [facility] SARS-COV-2 COVID-19 PFIZER VACCINE 2020-10-23 00:00:[address] [facility] SARS-COV-2 COVID-19 PFIZER VACCINE 2020-10-23 00:00:[address] [facility] SARS-COV-2 COVID-19 PFIZER VACCINE 2020-10-23 00:00:[address] [facility] SARS-COV-2 COVID-19 PFIZER VACCINE 2020-10-23 00:00:[address] [facility] SARS-COV-2 COVID-19 PFIZER VACCINE 2020-10-23 00:00:[address] [facility] SARS-COV-2 COVID-19 PFIZER VACCINE 2020-10-23 00:00:[address] [facility] SARS-COV-2 COVID-19 PFIZER VACCINE 2020-10-23 00:00:[address] [facility] SARS-COV-2 COVID-19 PFIZER VACCINE 2020-10-23 00:00:[address] [facility] SARS-COV-2 COVID-19 PFIZER VACCINE 2020-10-23 00:00:[address] [facility] SARS-COV-2 COVID-19 PFIZER VACCINE 2020-10-23 00:00:[address] [facility] SARS-COV-2 COVID-19 PFIZER VACCINE 2020-10-23 00:00:[address] [facility] SARS-COV-2 COVID-19 PFIZER VACCINE 2020-10-23 00:00:[address] [facility] SARS-COV-2 COVID-19 PFIZER VACCINE 2020-10-23 00:00:[address] [facility] SARS-COV-2 COVID-19 PFIZER VACCINE 2020-10-23 00:00:[address] [facility] SARS-COV-2 COVID-19 PFIZER VACCINE 2020-10-23 00:00:[address] [facility] SARS-COV-2 COVID-19 PFIZER VACCINE 2020-10-23 00:00:[address] [facility] SARS-COV-2 COVID-19 PFIZER VACCINE 2020-10-23 00:00:[address] [facility] SARS-COV-2 COVID-19 PFIZER VACCINE 2020-10-23 00:00:[address] [facility] SARS-COV-2 COVID-19 PFIZER VACCINE 2020-10-23 00:00:[address] [facility] SARS-COV-2 COVID-19 PFIZER VACCINE 2020-10-23 00:00:[address] [facility] SARS-COV-2 COVID-19 PFIZER VACCINE 2020-10-23 00:00:[address] [facility] Influenza Virus Vaccine Quad IM 3+ YRS 2016-11-18 00:00:[address] [facility] Influenza Virus Vaccine Quad IM 3+ YRS 2016-11-18 00:00:[address] [facility] Influenza Virus Vaccine Quad IM 3+ YRS 2016-11-18 00:00:00 Completed [facility] Influenza Virus Vaccine Quad IM 3+ YRS 2016-11-18 00:00:[address] [facility] Influenza Virus Vaccine Quad IM 3+ YRS 2016-11-18 00:00:00 Completed [facility] Influenza Virus Vaccine Quad IM 3+ YRS 2016-11-18 00:00:00 Completed [facility] Influenza Virus Vaccine Quad IM 3+ YRS 2016-11-18 00:00:[address] [facility] Influenza Virus Vaccine Quad IM 3+ YRS 2016-11-18 00:00:[address] [facility] Influenza Virus Vaccine Quad IM 3+ YRS 2016-11-18 00:00:[address] [facility] Influenza Virus Vaccine Quad IM 3+ YRS 2016-11-18 00:00:[address] [facility] Influenza Virus Vaccine Quad IM 3+ YRS 2016-11-18 00:00:[address] [facility] Influenza Virus Vaccine Quad IM 3+ YRS 2016-11-18 00:00:[address] [facility] Influenza Virus Vaccine Quad IM 3+ YRS 2016-11-18 00:00:[address] [facility] Influenza Virus Vaccine Quad IM 3+ YRS 2016-11-18 00:00:[address] [facility] Influenza Virus Vaccine Quad IM 3+ YRS 2016-11-18 00:00:[address] [facility] Influenza Virus Vaccine Quad IM 3+ YRS 2016-11-18 00:00:[address] [facility] Influenza Virus Vaccine Quad IM 3+ YRS 2016-11-18 00:00:[address] [facility] Influenza Virus Vaccine Quad IM 3+ YRS 2016-11-18 00:00:[address] [facility] Influenza Virus Vaccine Quad IM 3+ YRS 2016-11-18 00:00:[address] [facility] Influenza Virus Vaccine Quad IM 3+ YRS 2016-11-18 00:00:[address] [facility] Influenza Virus Vaccine Quad IM 3+ YRS 2016-11-18 00:00:00 Completed [facility] Influenza Virus Vaccine Quad IM 3+ YRS 2016-11-18 00:00:[address] [facility] Influenza Virus Vaccine Quad IM 3+ YRS 2016-11-18 00:00:[address] [facility] Influenza Virus Vaccine Quad IM 3+ YRS 2016-11-18 00:00:[address] [facility] Influenza Virus Vaccine Quad IM 3+ YRS 2016-11-18 00:00:[address] [facility] Influenza Virus Vaccine Quad IM 3+ YRS 2016-11-18 00:00:00 Completed [facility] Influenza Virus Vaccine Quad IM 3+ YRS 2016-11-18 00:00:[address] [facility] Influenza Virus Vaccine Quad IM 3+ YRS 2016-11-18 00:00:[address] [facility] Influenza Virus Vaccine Quad IM 3+ YRS 2016-11-18 00:00:[address] [facility] Influenza Virus Vaccine Quad IM 3+ YRS 2016-11-18 00:00:[address] [facility] Influenza Virus Vaccine Quad IM 3+ YRS 2016-11-18 00:00:[address] [facility] Influenza Virus Vaccine Quad IM 3+ YRS 2016-11-18 00:00:[address] [facility] Influenza Virus Vaccine Quad IM 3+ YRS 2016-11-18 00:00:[address] [facility] Influenza Virus Vaccine Quad IM 3+ YRS 2016-11-18 00:00:[address] [facility] Influenza Virus Vaccine Quad IM 3+ YRS 2016-11-18 00:00:[address] [facility] Influenza Virus Vaccine Quad IM 3+ YRS 2016-11-18 00:00:[address] [facility] Influenza Virus Vaccine Quad IM 3+ YRS 2016-11-18 00:00:[address] [facility] Influenza Virus Vaccine Quad IM 3+ YRS 2016-11-18 00:00:[address] [facility] Influenza Virus Vaccine Quad IM 3+ YRS 2016-11-18 00:00:[address] [facility] Influenza Virus Vaccine Quad IM 3+ YRS 2016-11-18 00:00:00 Completed [facility] Influenza Virus Vaccine Quad IM 3+ YRS 2016-11-18 00:00:00 Completed [facility] Influenza Virus Vaccine Quad IM 3+ YRS 2016-11-18 00:00:00 Completed [facility] Influenza Virus Vaccine Quad IM 3+ YRS 2016-11-18 00:00:00 Completed [facility] Influenza Virus Vaccine Quad IM 3+ YRS 2016-11-18 00:00:00 Completed [facility] Influenza Virus Vaccine Quad IM 3+ YRS 2016-11-18 00:00:[address] [facility] Influenza Virus Vaccine Quad IM 3+ YRS 2016-11-18 00:00:[address] [facility] Influenza Virus Vaccine Quad IM 3+ YRS 2016-11-18 00:00:00 Completed [facility] Influenza Virus Vaccine Quad IM 3+ YRS 2016-11-18 00:00:[address] [facility] Influenza Virus Vaccine Quad IM 3+ YRS 2016-11-18 00:00:[address] [facility] Influenza Virus Vaccine Quad IM 3+ YRS 2016-11-18 00:00:[address] [facility] Influenza Virus Vaccine Quad IM 3+ YRS 2016-11-18 00:00:[address] [facility] Influenza Virus Vaccine Quad IM 3+ YRS 2016-11-18 00:00:[address] [facility] Influenza Virus Vaccine Quad IM 3+ YRS 2016-11-18 00:00:[address] [facility] Influenza Virus Vaccine Quad IM 3+ YRS 2016-11-18 00:00:[address] [facility] Influenza Virus Vaccine Quad IM 3+ YRS 2016-11-18 00:00:[address] [facility] Influenza Virus Vaccine Quad IM 3+ YRS 2016-11-18 00:00:[address] [facility] Influenza Virus Vaccine Quad IM 3+ YRS 2016-11-18 00:00:[address] [facility] Influenza Virus Vaccine Quad IM 3+ YRS 2016-11-18 00:00:[address] [facility] Influenza Virus Vaccine Quad IM 3+ YRS 2016-11-18 00:00:[address] [facility] Influenza Virus Vaccine Quad IM 3+ YRS 2016-11-18 00:00:[address] [facility] Influenza Virus Vaccine Quad IM 3+ YRS 2016-11-18 00:00:[address] [facility] Influenza Virus Vaccine Quad IM 3+ YRS 2016-11-18 00:00:00 Completed [facility] Influenza Virus Vaccine Quad IM 3+ YRS 2016-11-18 00:00:00 Completed [facility] Influenza Virus Vaccine Quad IM 3+ YRS 2016-11-18 00:00:[address] [facility] Influenza Virus Vaccine Quad IM 3+ YRS 2016-11-18 00:00:[address] [facility] Influenza Virus Vaccine Quad IM 3+ YRS 2016-11-18 00:00:[address] [facility] Influenza Virus Vaccine Quad IM 3+ YRS 2016-11-18 00:00:[address] [facility] Influenza Virus Vaccine Quad IM 3+ YRS 2016-11-18 00:00:[address] [facility] Influenza Virus Vaccine Quad IM 3+ YRS 2016-11-18 00:00:[address] [facility] Influenza Virus Vaccine Quad IM 3+ YRS 2016-11-18 00:00:[address] [facility] Influenza Virus Vaccine Quad IM 3+ YRS 2016-11-18 00:00:[address] [facility] Influenza Virus Vaccine Quad IM 3+ YRS 2016-11-18 00:00:[address] [facility] Influenza Virus Vaccine Quad IM 3+ YRS 2016-11-18 00:00:[address] [facility] Influenza Virus Vaccine Quad IM 3+ YRS 2016-11-18 00:00:[address] [facility] Influenza Virus Vaccine Quad IM 3+ YRS 2016-11-18 00:00:[address] [facility] Influenza Virus Vaccine Quad IM 3+ YRS 2016-11-18 00:00:[address] [facility] Influenza Virus Vaccine Quad IM 3+ YRS 2016-11-18 00:00:[address] [facility] Influenza Virus Vaccine Quad IM 3+ YRS 2016-11-18 00:00:[address] [facility] Influenza Virus Vaccine Quad IM 3+ YRS 2016-11-18 00:00:[address] [facility] Influenza Virus Vaccine Quad IM 3+ YRS 2016-11-18 00:00:[address] [facility] Influenza Virus Vaccine Quad IM 3+ YRS 2016-11-18 00:00:[address] [facility] Influenza Virus Vaccine Quad IM 3+ YRS 2016-11-18 00:00:[address] [facility] Influenza Virus Vaccine Quad IM 3+ YRS 2016-11-18 00:00:[address] [facility] Influenza Virus Vaccine Quad IM 3+ YRS 2016-11-18 00:00:[address] [facility] Influenza Virus Vaccine Quad IM 3+ YRS 2016-11-18 00:00:[address] [facility] HPV9 2016-04-06 00:00:[address] [facility] HPV9 2016-04-06 00:00:[address] [facility] HPV9 2016-04-06 00:00:[address] [facility] HPV9 2016-04-06 00:00:[address] [facility] HPV9 2016-04-06 00:00:[address] [facility] HPV9 2016-04-06 00:00:[address] [facility] HPV9 2016-04-06 00:00:[address] [facility] HPV9 2016-04-06 00:00:[address] [facility] HPV9 2016-04-06 00:00:[address] [facility] HPV9 2016-04-06 00:00:[address] [facility] HPV9 2016-04-06 00:00:[address] [facility] HPV9 2016-04-06 00:00:[address] [facility] HPV9 2016-04-06 00:00:[address] [facility] HPV9 2016-04-06 00:00:[address] [facility] HPV9 2016-04-06 00:00:[address] [facility] HPV9 2016-04-06 00:00:[address] [facility] HPV9 2016-04-06 00:00:[address] [facility] HPV9 2016-04-06 00:00:[address] [facility] HPV9 2016-04-06 00:00:[address] [facility] HPV9 2016-04-06 00:00:[address] [facility] HPV9 2016-04-06 00:00:[address] [facility] HPV9 2016-04-06 00:00:00 Completed [facility] HPV9 2016-04-06 00:00:[address] [facility] HPV9 2016-04-06 00:00:[address] [facility] HPV9 2016-04-06 00:00:00 Completed [facility] HPV9 2016-04-06 00:00:00 Completed [facility] HPV9 2016-04-06 00:00:[address] [facility] HPV9 2016-04-06 00:00:[address] [facility] HPV9 2016-04-06 00:00:[address] [facility] HPV9 2016-04-06 00:00:[address] [facility] HPV9 2016-04-06 00:00:[address] [facility] HPV9 2016-04-06 00:00:[address] [facility] HPV9 2016-04-06 00:00:[address] [facility] HPV9 2016-04-06 00:00:[address] [facility] HPV9 2016-04-06 00:00:[address] [facility] HPV9 2016-04-06 00:00:[address] [facility] HPV9 2016-04-06 00:00:[address] [facility] HPV9 2016-04-06 00:00:[address] [facility] HPV9 2016-04-06 00:00:[address] [facility] HPV9 2016-04-06 00:00:[address] [facility] HPV9 2016-04-06 00:00:[address] [facility] HPV9 2016-04-06 00:00:[address] [facility] HPV9 2016-04-06 00:00:[address] [facility] HPV9 2016-04-06 00:00:[address] [facility] HPV9 2016-04-06 00:00:[address] [facility] HPV9 2016-04-06 00:00:[address] [facility] HPV9 2016-04-06 00:00:[address] [facility] HPV9 2016-04-06 00:00:[address] [facility] HPV9 2016-04-06 00:00:[address] [facility] HPV9 2016-04-06 00:00:[address] [facility] HPV9 2016-04-06 00:00:[address] [facility] HPV9 2016-04-06 00:00:[address] [facility] HPV9 2016-04-06 00:00:00 Completed [facility] HPV9 2016-04-06 00:00:00 Completed [facility] HPV9 2016-04-06 00:00:[address] [facility] HPV9 2016-04-06 00:00:[address] [facility] HPV9 2016-04-06 00:00:[address] [facility] HPV9 2016-04-06 00:00:[address] [facility] HPV9 2016-04-06 00:00:[address] [facility] HPV9 2016-04-06 00:00:[address] [facility] HPV9 2016-04-06 00:00:[address] [facility] HPV9 2016-04-06 00:00:[address] [facility] HPV9 2016-04-06 00:00:[address] [facility] HPV9 2016-04-06 00:00:[address] [facility] HPV9 2016-04-06 00:00:[address] [facility] HPV9 2016-04-06 00:00:[address] [facility] HPV9 2016-04-06 00:00:[address] [facility] HPV9 2016-04-06 00:00:[address] [facility] HPV9 2016-04-06 00:00:[address] [facility] HPV9 2016-04-06 00:00:[address] [facility] HPV9 2016-04-06 00:00:[address] [facility] HPV9 2016-04-06 00:00:[address] [facility] HPV9 2016-04-06 00:00:[address] [facility] HPV9 2016-04-06 00:00:[address] [facility] HPV9 2016-04-06 00:00:[address] [facility] HPV9 2016-04-06 00:00:[address] [facility] HPV9 2016-04-06 00:00:[address] [facility] HPV9 2016-04-06 00:00:[address] [facility] HPV9 2016-04-06 00:00:[address] [facility] HPV9 2016-04-06 00:00:[address] [facility] HPV9 2016-04-06 00:00:[address] [facility] HPV9 2016-04-06 00:00:[address] [facility] HPV9 2016-04-06 00:00:[address] [facility] HPV9 2016-04-06 00:00:00 Completed [facility] HPV9 2016-04-06 00:00:[address] [facility] HPV9 2016-01-06 00:00:[address] [facility] HPV9 2016-01-06 00:00:[address] [facility] HPV9 2016-01-06 00:00:[address] [facility] HPV9 2016-01-06 00:00:[address] [facility] HPV9 2016-01-06 00:00:[address] [facility] HPV9 2016-01-06 00:00:[address] [facility] HPV9 2016-01-06 00:00:[address] [facility] HPV9 2016-01-06 00:00:[address] [facility] HPV9 2016-01-06 00:00:[address] [facility] HPV9 2016-01-06 00:00:[address] [facility] HPV9 2016-01-06 00:00:[address] [facility] HPV9 2016-01-06 00:00:[address] [facility] HPV9 2016-01-06 00:00:[address] [facility] HPV9 2016-01-06 00:00:[address] [facility] HPV9 2016-01-06 00:00:[address] [facility] HPV9 2016-01-06 00:00:[address] [facility] HPV9 2016-01-06 00:00:[address] [facility] HPV9 2016-01-06 00:00:[address] [facility] HPV9 2016-01-06 00:00:[address] [facility] HPV9 2016-01-06 00:00:[address] [facility] HPV9 2016-01-06 00:00:[address] [facility] HPV9 2016-01-06 00:00:[address] [facility] HPV9 2016-01-06 00:00:00 Completed [facility] HPV9 2016-01-06 00:00:00 Completed [facility] HPV9 2016-01-06 00[facility]00:[address] [facility] HPV9 2016-01-06 00:00:[address] [facility] HPV9 2016-01-06 00:00:00 Completed [facility] HPV9 2016-01-06 00:00:[address] [facility] HPV9 2016-01-06 00:00:[address] [facility] HPV9 2016-01-06 00:00:[address] [facility] HPV9 2016-01-06 00:00:00 Completed [facility] HPV9 2016-01-06 00:00:[address] [facility] HPV9 2016-01-06 00:00:[address] [facility] HPV9 2016-01-06 00:00:[address] [facility] HPV9 2016-01-06 00:00:[address] [facility] HPV9 2016-01-06 00:00:[address] [facility] HPV9 2016-01-06 00:00:[address] [facility] HPV9 2016-01-06 00:00:[address] [facility] HPV9 2016-01-06 00:00:[address] [facility] HPV9 2016-01-06 00:00:[address] [facility] HPV9 2016-01-06 00:00:[address] [facility] HPV9 2016-01-06 00:00:[address] [facility] HPV9 2016-01-06 00:00:[address] [facility] HPV9 2016-01-06 00:00:[address] [facility] HPV9 2016-01-06 00:00:[address] [facility] HPV9 2016-01-06 00:00:00 Completed [facility] HPV9 2016-01-06 00:00:00 Completed [facility] HPV9 2016-01-06 00:00:00 Completed [facility] HPV9 2016-01-06 00:00:00 Completed [facility] HPV9 2016-01-06 00:00:[address] [facility] HPV9 2016-01-06 00:00:00 Completed [facility] HPV9 2016-01-06 00:00:00 Completed [facility] HPV9 2016-01-06 00:00:[address] [facility] HPV9 2016-01-06 00:00:[address] [facility] HPV9 2016-01-06 00:00:00 Completed [facility] HPV9 2016-01-06 00[facility]00:[address] [facility] HPV9 2016-01-06 00:00:[address] [facility] HPV9 2016-01-06 00:00:[address] [facility] HPV9 2016-01-06 00:00:[address] [facility] HPV9 2016-01-06 00:00:[address] [facility] HPV9 2016-01-06 00:00:[address] [facility] HPV9 2016-01-06 00:00:[address] [facility] HPV9 2016-01-06 00:00:[address] [facility] HPV9 2016-01-06 00:00:[address] [facility] HPV9 2016-01-06 00:00:[address] [facility] HPV9 2016-01-06 00:00:[address] [facility] HPV9 2016-01-06 00:00:[address] [facility] HPV9 2016-01-06 00:00:[address] [facility] HPV9 2016-01-06 00:00:[address] [facility] HPV9 2016-01-06 00:00:[address] [facility] HPV9 2016-01-06 00:00:[address] [facility] HPV9 2016-01-06 00:00:[address] [facility] HPV9 2016-01-06 00:00:[address] [facility] HPV9 2016-01-06 00:00:[address] [facility] HPV9 2016-01-06 00:00:00 Completed [facility] HPV9 2016-01-06 00:00:00 Completed [facility] HPV9 2016-01-06 00[facility]00:[address] [facility] HPV9 2016-01-06 00:00:[address] [facility] HPV9 2016-01-06 00:00:00 Completed [facility] HPV9 2016-01-06 00:00:00 Completed [facility] HPV9 2016-01-06 00:00:00 Completed [facility] HPV9 2016-01-06 00[facility]00:[address] [facility] HPV9 2016-01-06 00:00:[address] [facility] HPV9 2016-01-06 00[facility]00:[address] [facility] HPV9 2016-01-06 00:00:[address] [facility] HPV9 2015-10-03 00:00:[address] [facility] HPV9 2015-10-03 00:00:[address] [facility] HPV9 2015-10-03 00:00:[address] [facility] HPV9 2015-10-03 00:00:[address] [facility] HPV9 2015-10-03 00:00:[address] [facility] HPV9 2015-10-03 00:00:[address] [facility] HPV9 2015-10-03 00:00:[address] [facility] HPV9 2015-10-03 00:00:[address] [facility] HPV9 2015-10-03 00:00:[address] [facility] HPV9 2015-10-03 00:00:[address] [facility] HPV9 2015-10-03 00:00:[address] [facility] HPV9 2015-10-03 00:00:[address] [facility] HPV9 2015-10-03 00:00:[address] [facility] HPV9 2015-10-03 00:00:[address] [facility] HPV9 2015-10-03 00:00:[address] [facility] HPV9 2015-10-03 00:00:[address] [facility] HPV9 2015-10-03 00:00:[address] [facility] HPV9 2015-10-03 00:00:[address] [facility] HPV9 2015-10-03 00:00:00 Completed [facility] HPV9 2015-10-03 00:00:[address] [facility] HPV9 2015-10-03 00:00:[address] [facility] HPV9 2015-10-03 00:00:[address] [facility] HPV9 2015-10-03 00:00:[address] [facility] HPV9 2015-10-03 00:00:[address] [facility] HPV9 2015-10-03 00:00:00 Completed [facility] HPV9 2015-10-03 00:00:[address] [facility] HPV9 2015-10-03 00:00:[address] [facility] HPV9 2015-10-03 00:00:[address] [facility] HPV9 2015-10-03 00:00:[address] [facility] HPV9 2015-10-03 00:00:[address] [facility] HPV9 2015-10-03 00:00:[address] [facility] HPV9 2015-10-03 00:00:[address] [facility] HPV9 2015-10-03 00:00:[address] [facility] HPV9 2015-10-03 00:00:[address] [facility] HPV9 2015-10-03 00:00:[address] [facility] HPV9 2015-10-03 00:00:[address] [facility] HPV9 2015-10-03 00:00:[address] [facility] HPV9 2015-10-03 00:00:[address] [facility] HPV9 2015-10-03 00:00:[address] [facility] HPV9 2015-10-03 00:00:[address] [facility] HPV9 2015-10-03 00:00:[address] [facility] HPV9 2015-10-03 00:00:[address] [facility] HPV9 2015-10-03 00:00:[address] [facility] HPV9 2015-10-03 00:00:[address] [facility] HPV9 2015-10-03 00:00:[address] [facility] HPV9 2015-10-03 00:00:[address] [facility] HPV9 2015-10-03 00:00:[address] [facility] HPV9 2015-10-03 00:00:[address] [facility] HPV9 2015-10-03 00:00:[address] [facility] HPV9 2015-10-03 00:00:[address] [facility] HPV9 2015-10-03 00:00:[address] [facility] HPV9 2015-10-03 00:00:[address] [facility] HPV9 2015-10-03 00:00:00 Completed [facility] HPV9 2015-10-03 00:00:[address] [facility] HPV9 2015-10-03 00:00:[address] [facility] HPV9 2015-10-03 00:00:[address] [facility] HPV9 2015-10-03 00:00:[address] [facility] HPV9 2015-10-03 00:00:[address] [facility] HPV9 2015-10-03 00:00:[address] [facility] HPV9 2015-10-03 00:00:[address] [facility] HPV9 2015-10-03 00:00:[address] [facility] HPV9 2015-10-03 00:00:[address] [facility] HPV9 2015-10-03 00:00:[address] [facility] HPV9 2015-10-03 00:00:[address] [facility] HPV9 2015-10-03 00:00:[address] [facility] HPV9 2015-10-03 00:00:[address] [facility] HPV9 2015-10-03 00:00:[address] [facility] HPV9 2015-10-03 00:00:[address] [facility] HPV9 2015-10-03 00:00:[address] [facility] HPV9 2015-10-03 00:00:[address] [facility] HPV9 2015-10-03 00:00:[address] [facility] HPV9 2015-10-03 00:00:[address] [facility] HPV9 2015-10-03 00:00:[address] [facility] HPV9 2015-10-03 00:00:00 Completed [facility] HPV9 2015-10-03 00:00:00 Completed [facility] HPV9 2015-10-03 00:00:00 Completed [facility] HPV9 2015-10-03 00:00:00 Completed [facility] HPV9 2015-10-03 00:00:00 Completed [facility] HPV9 2015-10-03 00:00:[address] [facility] HPV9 2015-10-03 00:00:[address] [facility] HPV9 2015-10-03 00:00:00 Completed [facility] HPV9 2015-10-03 00:00:[address] [facility] HPV9 2015-10-03 00:00:[address] [facility] HPV9 2015-10-03 00:00:[address] [facility] HPV9 2015-10-03 00:00:[address] [facility] MMR 2014-06-28 00:00:[address] [facility] MMR 2014-06-28 00:00:[address] [facility] MMR 2014-06-28 00:00:[address] [facility] MMR 2014-06-28 00:00:[address] [facility] MMR 2014-06-28 00:00:[address] [facility] MMR 2014-06-28 00:00:[address] [facility] MMR 2014-06-28 00:00:[address] [facility] MMR 2014-06-28 00:00:[address] [facility] MMR 2014-06-28 00:00:[address] [facility] MMR 2014-06-28 00:00:[address] [facility] MMR 2014-06-28 00:00:[address] [facility] MMR 2014-06-28 00:00:[address] [facility] MMR 2014-06-28 00:00:[address] [facility] MMR 2014-06-28 00:00:[address] [facility] MMR 2014-06-28 00:00:[address] [facility] MMR 2014-06-28 00:00:[address] [facility] MMR 2014-06-28 00:00:[address] [facility] MMR 2014-06-28 00:00:00 Completed [facility] MMR 2014-06-28 00:00:00 Completed [facility] MMR 2014-06-28 00:00:[address] [facility] MMR 2014-06-28 00:00:00 Completed [facility] MMR 2014-06-28 00:00:00 Completed [facility] MMR 2014-06-28 00:00:[address] [facility] MMR 2014-06-28 00:00:[address] [facility] MMR 2014-06-28 00:00:00 Completed [facility] MMR 2014-06-28 00:00:[address] [facility] MMR 2014-06-28 00:00:[address] [facility] MMR 2014-06-28 00:00:[address] [facility] MMR 2014-06-28 00:00:[address] [facility] MMR 2014-06-28 00:00:[address] [facility] MMR 2014-06-28 00:00:[address] [facility] MMR 2014-06-28 00:00:[address] [facility] MMR 2014-06-28 00:00:[address] [facility] MMR 2014-06-28 00:00:[address] [facility] MMR 2014-06-28 00:00:[address] [facility] MMR 2014-06-28 00:00:[address] [facility] MMR 2014-06-28 00:00:[address] [facility] MMR 2014-06-28 00:00:[address] [facility] MMR 2014-06-28 00:00:[address] [facility] MMR 2014-06-28 00:00:[address] [facility] MMR 2014-06-28 00:00:[address] [facility] MMR 2014-06-28 00:00:[address] [facility] MMR 2014-06-28 00:00:[address] [facility] MMR 2014-06-28 00:00:[address] [facility] MMR 2014-06-28 00:00:[address] [facility] MMR 2014-06-28 00:00:[address] [facility] MMR 2014-06-28 00:00:[address] [facility] MMR 2014-06-28 00:00:[address] [facility] MMR 2014-06-28 00:00:[address] [facility] MMR 2014-06-28 00:00:[address] [facility] MMR 2014-06-28 00:00:[address] [facility] MMR 2014-06-28 00:00:[address] [facility] MMR 2014-06-28 00:00:[address] [facility] MMR 2014-06-28 00:00:[address] [facility] MMR 2014-06-28 00:00:[address] [facility] MMR 2014-06-28 00:00:[address] [facility] MMR 2014-06-28 00:00:[address] [facility] MMR 2014-06-28 00:00:[address] [facility] MMR 2014-06-28 00:00:[address] [facility] MMR 2014-06-28 00:00:[address] [facility] MMR 2014-06-28 00:00:[address] [facility] MMR 2014-06-28 00:00:[address] [facility] MMR 2014-06-28 00:00:[address] [facility] MMR 2014-06-28 00:00:[address] [facility] MMR 2014-06-28 00:00:[address] [facility] MMR 2014-06-28 00:00:[address] [facility] MMR 2014-06-28 00:00:[address] [facility] MMR 2014-06-28 00:00:[address] [facility] MMR 2014-06-28 00:00:[address] [facility] MMR 2014-06-28 00:00:[address] [facility] MMR 2014-06-28 00:00:[address] [facility] MMR 2014-06-28 00:00:[address] [facility] MMR 2014-06-28 00:00:[address] [facility] MMR 2014-06-28 00:00:[address] [facility] MMR 2014-06-28 00:00:[address] [facility] MMR 2014-06-28 00:00:[address] [facility] MMR 2014-06-28 00:00:00 Completed [facility] MMR 2014-06-28 00:00:[address] [facility] MMR 2014-06-28 00:00:[address] [facility] MMR 2014-06-28 00:00:00 Completed [facility] MMR 2014-06-28 00:00:00 Completed [facility] MMR 2014-06-28 00:00:[address] [facility] MMR 2014-06-28 00:00:[address] [facility] MMR 2014-06-28 00:00:00 Completed [facility] MMR 2014-06-28 00:00:[address] [facility] HPV 2014-04-10 00:00:[address] [facility] Meningococcal Polysaccharide (groups A, C, Y and W-135) conjugate vaccine (MCV4P) 2014-04-10 00:00:[address] [facility] HPV 2014-04-10 00:00:[address] [facility] Meningococcal Polysaccharide (groups A, C, Y and W-135) conjugate vaccine (MCV4P) 2014-04-10 00:00:[address] [facility] HPV 2014-04-10 00:00:[address] [facility] Meningococcal Polysaccharide (groups A, C, Y and W-135) conjugate vaccine (MCV4P) 2014-04-10 00:00:[address] [facility] HPV 2014-04-10 00:00:[address] [facility] Meningococcal Polysaccharide (groups A, C, Y and W-135) conjugate vaccine (MCV4P) 2014-04-10 00:00:[address] [facility] HPV 2014-04-10 00:00:[address] [facility] Meningococcal Polysaccharide (groups A, C, Y and W-135) conjugate vaccine (MCV4P) 2014-04-10 00:00:[address] [facility] HPV 2014-04-10 00:00:[address] [facility] Meningococcal Polysaccharide (groups A, C, Y and W-135) conjugate vaccine (MCV4P) 2014-04-10 00:00:[address] [facility] HPV 2014-04-10 00:00:[address] [facility] Meningococcal Polysaccharide (groups A, C, Y and W-135) conjugate vaccine (MCV4P) 2014-04-10 00:00:[address] [facility] HPV 2014-04-10 00:00:[address] [facility] Meningococcal Polysaccharide (groups A, C, Y and W-135) conjugate vaccine (MCV4P) 2014-04-10 00:00:[address] [facility] HPV 2014-04-10 00:00:[address] [facility] Meningococcal Polysaccharide (groups A, C, Y and W-135) conjugate vaccine (MCV4P) 2014-04-10 00:00:[address] [facility] HPV 2014-04-10 00:00:[address] [facility] Meningococcal Polysaccharide (groups A, C, Y and W-135) conjugate vaccine (MCV4P) 2014-04-10 00:00:[address] [facility] HPV 2014-04-10 00:00:[address] [facility] Meningococcal Polysaccharide (groups A, C, Y and W-135) conjugate vaccine (MCV4P) 2014-04-10 00:00:[address] [facility] HPV 2014-04-10 00:00:[address] [facility] Meningococcal Polysaccharide (groups A, C, Y and W-135) conjugate vaccine (MCV4P) 2014-04-10 00:00:[address] [facility] HPV 2014-04-10 00:00:[address] [facility] Meningococcal Polysaccharide (groups A, C, Y and W-135) conjugate vaccine (MCV4P) 2014-04-10 00:00:[address] [facility] HPV 2014-04-10 00:00:[address] [facility] Meningococcal Polysaccharide (groups A, C, Y and W-135) conjugate vaccine (MCV4P) 2014-04-10 00:00:[address] [facility] HPV 2014-04-10 00:00:[address] [facility] Meningococcal Polysaccharide (groups A, C, Y and W-135) conjugate vaccine (MCV4P) 2014-04-10 00:00:[address] [facility] HPV 2014-04-10 00:00:[address] [facility] Meningococcal Polysaccharide (groups A, C, Y and W-135) conjugate vaccine (MCV4P) 2014-04-10 00:00:[address] [facility] HPV 2014-04-10 00:00:[address] [facility] Meningococcal Polysaccharide (groups A, C, Y and W-135) conjugate vaccine (MCV4P) 2014-04-10 00:00:[address] [facility] HPV 2014-04-10 00:00:[address] [facility] Meningococcal Polysaccharide (groups A, C, Y and W-135) conjugate vaccine (MCV4P) 2014-04-10 00:00:[address] [facility] HPV 2014-04-10 00:00:[address] [facility] Meningococcal Polysaccharide (groups A, C, Y and W-135) conjugate vaccine (MCV4P) 2014-04-10 00:00:[address] [facility] HPV 2014-04-10 00:00:[address] [facility] Meningococcal Polysaccharide (groups A, C, Y and W-135) conjugate vaccine (MCV4P) 2014-04-10 00:00:[address] [facility] HPV 2014-04-10 00:00:[address] [facility] Meningococcal Polysaccharide (groups A, C, Y and W-135) conjugate vaccine (MCV4P) 2014-04-10 00:00:[address] [facility] HPV 2014-04-10 00:00:[address] [facility] Meningococcal Polysaccharide (groups A, C, Y and W-135) conjugate vaccine (MCV4P) 2014-04-10 00:00:[address] [facility] HPV 2014-04-10 00:00:[address] [facility] Meningococcal Polysaccharide (groups A, C, Y and W-135) conjugate vaccine (MCV4P) 2014-04-10 00:00:[address] [facility] HPV 2014-04-10 00:00:[address] [facility] Meningococcal Polysaccharide (groups A, C, Y and W-135) conjugate vaccine (MCV4P) 2014-04-10 00:00:[address] [facility] HPV 2014-04-10 00:00:[address] [facility] Meningococcal Polysaccharide (groups A, C, Y and W-135) conjugate vaccine (MCV4P) 2014-04-10 00:00:[address] [facility] HPV 2014-04-10 00:00:[address] [facility] Meningococcal Polysaccharide (groups A, C, Y and W-135) conjugate vaccine (MCV4P) 2014-04-10 00:00:[address] [facility] HPV 2014-04-10 00:00:[address] [facility] Meningococcal Polysaccharide (groups A, C, Y and W-135) conjugate vaccine (MCV4P) 2014-04-10 00:00:[address] [facility] HPV 2014-04-10 00:00:[address] [facility] Meningococcal Polysaccharide (groups A, C, Y and W-135) conjugate vaccine (MCV4P) 2014-04-10 00:00:[address] [facility] HPV 2014-04-10 00:00:[address] [facility] Meningococcal Polysaccharide (groups A, C, Y and W-135) conjugate vaccine (MCV4P) 2014-04-10 00:00:[address] [facility] HPV 2014-04-10 00:00:[address] [facility] Meningococcal Polysaccharide (groups A, C, Y and W-135) conjugate vaccine (MCV4P) 2014-04-10 00:00:[address] [facility] HPV 2014-04-10 00:00:[address] [facility] Meningococcal Polysaccharide (groups A, C, Y and W-135) conjugate vaccine (MCV4P) 2014-04-10 00:00:[address] [facility] HPV 2014-04-10 00:00:[address] [facility] Meningococcal Polysaccharide (groups A, C, Y and W-135) conjugate vaccine (MCV4P) 2014-04-10 00:00:[address] [facility] HPV 2014-04-10 00:00:[address] [facility] Meningococcal Polysaccharide (groups A, C, Y and W-135) conjugate vaccine (MCV4P) 2014-04-10 00:00:[address] [facility] HPV 2014-04-10 00:00:[address] [facility] Meningococcal Polysaccharide (groups A, C, Y and W-135) conjugate vaccine (MCV4P) 2014-04-10 00:00:[address] [facility] HPV 2014-04-10 00:00:[address] [facility] Meningococcal Polysaccharide (groups A, C, Y and W-135) conjugate vaccine (MCV4P) 2014-04-10 00:00:[address] [facility] HPV 2014-04-10 00:00:[address] [facility] Meningococcal Polysaccharide (groups A, C, Y and W-135) conjugate vaccine (MCV4P) 2014-04-10 00:00:[address] [facility] HPV 2014-04-10 00:00:[address] [facility] Meningococcal Polysaccharide (groups A, C, Y and W-135) conjugate vaccine (MCV4P) 2014-04-10 00:00:[address] [facility] HPV 2014-04-10 00:00:[address] [facility] Meningococcal Polysaccharide (groups A, C, Y and W-135) conjugate vaccine (MCV4P) 2014-04-10 00:00:[address] [facility] HPV 2014-04-10 00:00:[address] [facility] Meningococcal Polysaccharide (groups A, C, Y and W-135) conjugate vaccine (MCV4P) 2014-04-10 00:00:[address] [facility] TDAP 2014-03-18 00:00:[address] [facility] TDAP 2014-03-18 00:00:[address] [facility] TDAP 2014-03-18 00:00:[address] [facility] TDAP 2014-03-18 00:00:[address] [facility] TDAP 2014-03-18 00:00:[address] [facility] TDAP 2014-03-18 00:00:[address] [facility] TDAP 2014-03-18 00:00:[address] [facility] TDAP 2014-03-18 00:00:[address] [facility] TDAP 2014-03-18 00:00:[address] [facility] TDAP 2014-03-18 00:00:[address] [facility] TDAP 2014-03-18 00:00:[address] [facility] TDAP 2014-03-18 00:00:[address] [facility] TDAP 2014-03-18 00:00:[address] [facility] TDAP 2014-03-18 00:00:[address] [facility] TDAP 2014-03-18 00:00:[address] [facility] TDAP 2014-03-18 00:00:[address] [facility] TDAP 2014-03-18 00:00:[address] [facility] TDAP 2014-03-18 00:00:[address] [facility] TDAP 2014-03-18 00:00:[address] [facility] TDAP 2014-03-18 00:00:[address] [facility] TDAP 2014-03-18 00:00:[address] [facility] TDAP 2014-03-18 00:00:[address] [facility] TDAP 2014-03-18 00:00:[address] [facility] TDAP 2014-03-18 00:00:[address] [facility] TDAP 2014-03-18 00:00:[address] [facility] TDAP 2014-03-18 00:00:[address] [facility] TDAP 2014-03-18 00:00:[address] [facility] TDAP 2014-03-18 00:00:[address] [facility] TDAP 2014-03-18 00:00:[address] [facility] TDAP 2014-03-18 00:00:[address] [facility] TDAP 2014-03-18 00:00:[address] [facility] TDAP 2014-03-18 00:00:[address] [facility] TDAP 2014-03-18 00:00:[address] [facility] TDAP 2014-03-18 00:00:[address] [facility] TDAP 2014-03-18 00:00:[address] [facility] TDAP 2014-03-18 00:00:[address] [facility] TDAP 2014-03-18 00:00:[address] [facility] TDAP 2014-03-18 00:00:[address] [facility] TDAP 2014-03-18 00:00:[address] [facility] TDAP 2014-03-18 00:00:[address] [facility] TDAP 2014-03-18 00:00:[address] [facility] TDAP 2014-03-18 00:00:[address] [facility] TDAP 2014-03-18 00:00:[address] [facility] TDAP 2014-03-18 00:00:[address] [facility] TDAP 2014-03-18 00:00:[address] [facility] TDAP 2014-03-18 00:00:[address] [facility] TDAP 2014-03-18 00:00:[address] [facility] TDAP 2014-03-18 00:00:[address] [facility] TDAP 2014-03-18 00:00:[address] [facility] TDAP 2014-03-18 00:00:[address] [facility] TDAP 2014-03-18 00:00:[address] [facility] TDAP 2014-03-18 00:00:[address] [facility] TDAP 2014-03-18 00:00:[address] [facility] TDAP 2014-03-18 00:00:[address] [facility] TDAP 2014-03-18 00:00:[address] [facility] TDAP 2014-03-18 00:00:[address] [facility] TDAP 2014-03-18 00:00:[address] [facility] TDAP 2014-03-18 00:00:[address] [facility] TDAP 2014-03-18 00:00:[address] [facility] TDAP 2014-03-18 00:00:[address] [facility] TDAP 2014-03-18 00:00:[address] [facility] TDAP 2014-03-18 00:00:[address] [facility] TDAP 2014-03-18 00:00:[address] [facility] TDAP 2014-03-18 00:00:[address] [facility] TDAP 2014-03-18 00:00:[address] [facility] TDAP 2014-03-18 00:00:[address] [facility] TDAP 2014-03-18 00:00:[address] [facility] TDAP 2014-03-18 00:00:[address] [facility] TDAP 2014-03-18 00:00:[address] [facility] TDAP 2014-03-18 00:00:00 Completed [facility] TDAP 2014-03-18 00:00:00 Completed [facility] TDAP 2014-03-18 00:00:[address] [facility] TDAP 2014-03-18 00:00:[address] [facility] TDAP 2014-03-18 00:00:[address] [facility] TDAP 2014-03-18 00:00:[address] [facility] TDAP 2014-03-18 00:00:[address] [facility] TDAP 2014-03-18 00:00:[address] [facility] TDAP 2014-03-18 00:00:[address] [facility] TDAP 2014-03-18 00:00:[address] [facility] TDAP 2014-03-18 00:00:[address] [facility] TDAP 2014-03-18 00:00:[address] [facility] TDAP 2014-03-18 00:00:[address] [facility] TDAP 2014-03-18 00:00:[address] [facility] TDAP 2014-03-18 00:00:[address] [facility] TDAP 2014-03-18 00:00:[address] [facility] Influenza Virus Vaccine - Whole 2012-12-21 00:00:[address] [facility] HPV 2012-12-21 00:00:[address] [facility] Influenza Virus Vaccine - Whole 2012-12-21 00:00:[address] [facility] HPV 2012-12-21 00:00:[address] [facility] Influenza Virus Vaccine - Whole 2012-12-21 00:00:[address] [facility] HPV 2012-12-21 00:00:[address] [facility] Influenza Virus Vaccine - Whole 2012-12-21 00:00:[address] [facility] HPV 2012-12-21 00:00:[address] [facility] Influenza Virus Vaccine - Whole 2012-12-21 00:00:[address] [facility] HPV 2012-12-21 00:00:[address] [facility] Influenza Virus Vaccine - Whole 2012-12-21 00:00:[address] [facility] HPV 2012-12-21 00:00:[address] [facility] Influenza Virus Vaccine - Whole 2012-12-21 00:00:[address] [facility] HPV 2012-12-21 00:00:[address] [facility] Influenza Virus Vaccine - Whole 2012-12-21 00:00:[address] [facility] HPV 2012-12-21 00:00:[address] [facility] Influenza Virus Vaccine - Whole 2012-12-21 00:00:[address] [facility] HPV 2012-12-21 00:00:[address] [facility] Influenza Virus Vaccine - Whole 2012-12-21 00:00:[address] [facility] HPV 2012-12-21 00:00:[address] [facility] Influenza Virus Vaccine - Whole 2012-12-21 00:00:[address] [facility] HPV 2012-12-21 00:00:[address] [facility] Influenza Virus Vaccine - Whole 2012-12-21 00:00:[address] [facility] HPV 2012-12-21 00:00:[address] [facility] Influenza Virus Vaccine - Whole 2012-12-21 00:00:[address] [facility] HPV 2012-12-21 00:00:[address] [facility] Influenza Virus Vaccine - Whole 2012-12-21 00:00:[address] [facility] HPV 2012-12-21 00:00:[address] [facility] Influenza Virus Vaccine - Whole 2012-12-21 00:00:[address] [facility] HPV 2012-12-21 00:00:[address] [facility] Influenza Virus Vaccine - Whole 2012-12-21 00:00:[address] [facility] HPV 2012-12-21 00:00:[address] [facility] Influenza Virus Vaccine - Whole 2012-12-21 00:00:[address] [facility] HPV 2012-12-21 00:00:[address] [facility] Influenza Virus Vaccine - Whole 2012-12-21 00:00:[address] [facility] HPV 2012-12-21 00:00:[address] [facility] Influenza Virus Vaccine - Whole 2012-12-21 00:00:[address] [facility] HPV 2012-12-21 00:00:[address] [facility] Influenza Virus Vaccine - Whole 2012-12-21 00:00:[address] [facility] HPV 2012-12-21 00:00:[address] [facility] Influenza Virus Vaccine - Whole 2012-12-21 00:00:[address] [facility] HPV 2012-12-21 00:00:[address] [facility] Influenza Virus Vaccine - Whole 2012-12-21 00:00:[address] [facility] HPV 2012-12-21 00:00:[address] [facility] Influenza Virus Vaccine - Whole 2012-12-21 00:00:[address] [facility] HPV 2012-12-21 00:00:[address] [facility] Influenza Virus Vaccine - Whole 2012-12-21 00:00:[address] [facility] HPV 2012-12-21 00:00:[address] [facility] Influenza Virus Vaccine - Whole 2012-12-21 00:00:[address] [facility] HPV 2012-12-21 00:00:[address] [facility] Influenza Virus Vaccine - Whole 2012-12-21 00:00:[address] [facility] HPV 2012-12-21 00:00:[address] [facility] Influenza Virus Vaccine - Whole 2012-12-21 00:00:[address] [facility] HPV 2012-12-21 00:00:[address] [facility] Influenza Virus Vaccine - Whole 2012-12-21 00:00:[address] [facility] HPV 2012-12-21 00:00:[address] [facility] Influenza Virus Vaccine - Whole 2012-12-21 00:00:[address] [facility] HPV 2012-12-21 00:00:[address] [facility] Influenza Virus Vaccine - Whole 2012-12-21 00:00:[address] [facility] HPV 2012-12-21 00:00:[address] [facility] Influenza Virus Vaccine - Whole 2012-12-21 00:00:[address] [facility] HPV 2012-12-21 00:00:[address] [facility] Influenza Virus Vaccine - Whole 2012-12-21 00:00:[address] [facility] HPV 2012-12-21 00:00:[address] [facility] Influenza Virus Vaccine - Whole 2012-12-21 00:00:[address] [facility] HPV 2012-12-21 00:00:[address] [facility] Influenza Virus Vaccine - Whole 2012-12-21 00:00:[address] [facility] HPV 2012-12-21 00:00:[address] [facility] Influenza Virus Vaccine - Whole 2012-12-21 00:00:[address] [facility] HPV 2012-12-21 00:00:[address] [facility] Influenza Virus Vaccine - Whole 2012-12-21 00:00:[address] [facility] HPV 2012-12-21 00:00:[address] [facility] Influenza Virus Vaccine - Whole 2012-12-21 00:00:[address] [facility] HPV 2012-12-21 00:00:[address] [facility] Influenza Virus Vaccine - Whole 2012-12-21 00:00:[address] [facility] HPV 2012-12-21 00:00:[address] [facility] Influenza Virus Vaccine - Whole 2012-12-21 00:00:[address] [facility] HPV 2012-12-21 00:00:[address] [facility] TDAP 2009-07-22 00:00:[address] [facility] HEPATITIS A 2009-07-22 00:00:[address] [facility] Meningococcal Polysaccharide (groups A, C, Y and W-135) conjugate vaccine (MCV4P) 2009-07-22 00:00:[address] [facility] TDAP 2009-07-22 00:00:[address] [facility] HEPATITIS A 2009-07-22 00:00:[address] [facility] Meningococcal Polysaccharide (groups A, C, Y and W-135) conjugate vaccine (MCV4P) 2009-07-22 00:00:[address] [facility] TDAP 2009-07-22 00:00:[address] [facility] HEPATITIS A 2009-07-22 00:00:[address] [facility] Meningococcal Polysaccharide (groups A, C, Y and W-135) conjugate vaccine (MCV4P) 2009-07-22 00:00:[address] [facility] TDAP 2009-07-22 00:00:[address] [facility] HEPATITIS A 2009-07-22 00:00:[address] [facility] Meningococcal Polysaccharide (groups A, C, Y and W-135) conjugate vaccine (MCV4P) 2009-07-22 00:00:[address] [facility] TDAP 2009-07-22 00:00:[address] [facility] HEPATITIS A 2009-07-22 00:00:[address] [facility] Meningococcal Polysaccharide (groups A, C, Y and W-135) conjugate vaccine (MCV4P) 2009-07-22 00:00:[address] [facility] TDAP 2009-07-22 00:00:[address] [facility] HEPATITIS A 2009-07-22 00:00:[address] [facility] Meningococcal Polysaccharide (groups A, C, Y and W-135) conjugate vaccine (MCV4P) 2009-07-22 00:00:[address] [facility] TDAP 2009-07-22 00:00:[address] [facility] HEPATITIS A 2009-07-22 00:00:[address] [facility] Meningococcal Polysaccharide (groups A, C, Y and W-135) conjugate vaccine (MCV4P) 2009-07-22 00:00:[address] [facility] TDAP 2009-07-22 00:00:[address] [facility] HEPATITIS A 2009-07-22 00:00:[address] [facility] Meningococcal Polysaccharide (groups A, C, Y and W-135) conjugate vaccine (MCV4P) 2009-07-22 00:00:[address] [facility] TDAP 2009-07-22 00:00:[address] [facility] HEPATITIS A 2009-07-22 00:00:[address] [facility] Meningococcal Polysaccharide (groups A, C, Y and W-135) conjugate vaccine (MCV4P) 2009-07-22 00:00:[address] [facility] TDAP 2009-07-22 00:00:[address] [facility] HEPATITIS A 2009-07-22 00:00:[address] [facility] Meningococcal Polysaccharide (groups A, C, Y and W-135) conjugate vaccine (MCV4P) 2009-07-22 00:00:[address] [facility] TDAP 2009-07-22 00:00:[address] [facility] HEPATITIS A 2009-07-22 00:00:[address] [facility] Meningococcal Polysaccharide (groups A, C, Y and W-135) conjugate vaccine (MCV4P) 2009-07-22 00:00:[address] [facility] TDAP 2009-07-22 00:00:[address] [facility] HEPATITIS A 2009-07-22 00:00:[address] [facility] Meningococcal Polysaccharide (groups A, C, Y and W-135) conjugate vaccine (MCV4P) 2009-07-22 00:00:[address] [facility] TDAP 2009-07-22 00:00:[address] [facility] HEPATITIS A 2009-07-22 00:00:[address] [facility] Meningococcal Polysaccharide (groups A, C, Y and W-135) conjugate vaccine (MCV4P) 2009-07-22 00:00:[address] [facility] TDAP 2009-07-22 00:00:[address] [facility] HEPATITIS A 2009-07-22 00:00:[address] [facility] Meningococcal Polysaccharide (groups A, C, Y and W-135) conjugate vaccine (MCV4P) 2009-07-22 00:00:[address] [facility] TDAP 2009-07-22 00:00:[address] [facility] HEPATITIS A 2009-07-22 00:00:[address] [facility] Meningococcal Polysaccharide (groups A, C, Y and W-135) conjugate vaccine (MCV4P) 2009-07-22 00:00:[address] [facility] TDAP 2009-07-22 00:00:[address] [facility] HEPATITIS A 2009-07-22 00:00:[address] [facility] Meningococcal Polysaccharide (groups A, C, Y and W-135) conjugate vaccine (MCV4P) 2009-07-22 00:00:[address] [facility] TDAP 2009-07-22 00:00:[address] [facility] HEPATITIS A 2009-07-22 00:00:[address] [facility] Meningococcal Polysaccharide (groups A, C, Y and W-135) conjugate vaccine (MCV4P) 2009-07-22 00:00:[address] [facility] TDAP 2009-07-22 00:00:[address] [facility] HEPATITIS A 2009-07-22 00:00:[address] [facility] Meningococcal Polysaccharide (groups A, C, Y and W-135) conjugate vaccine (MCV4P) 2009-07-22 00:00:[address] [facility] TDAP 2009-07-22 00:00:[address] [facility] HEPATITIS A 2009-07-22 00:00:[address] [facility] Meningococcal Polysaccharide (groups A, C, Y and W-135) conjugate vaccine (MCV4P) 2009-07-22 00:00:[address] [facility] TDAP 2009-07-22 00:00:[address] [facility] HEPATITIS A 2009-07-22 00:00:[address] [facility] Meningococcal Polysaccharide (groups A, C, Y and W-135) conjugate vaccine (MCV4P) 2009-07-22 00:00:[address] [facility] TDAP 2009-07-22 00:00:[address] [facility] HEPATITIS A 2009-07-22 00:00:[address] [facility] Meningococcal Polysaccharide (groups A, C, Y and W-135) conjugate vaccine (MCV4P) 2009-07-22 00:00:[address] [facility] TDAP 2009-07-22 00:00:[address] [facility] HEPATITIS A 2009-07-22 00:00:[address] [facility] Meningococcal Polysaccharide (groups A, C, Y and W-135) conjugate vaccine (MCV4P) 2009-07-22 00:00:[address] [facility] TDAP 2009-07-22 00:00:[address] [facility] HEPATITIS A 2009-07-22 00:00:[address] [facility] Meningococcal Polysaccharide (groups A, C, Y and W-135) conjugate vaccine (MCV4P) 2009-07-22 00:00:[address] [facility] TDAP 2009-07-22 00:00:[address] [facility] HEPATITIS A 2009-07-22 00:00:[address] [facility] Meningococcal Polysaccharide (groups A, C, Y and W-135) conjugate vaccine (MCV4P) 2009-07-22 00:00:[address] [facility] TDAP 2009-07-22 00:00:[address] [facility] HEPATITIS A 2009-07-22 00:00:[address] [facility] Meningococcal Polysaccharide (groups A, C, Y and W-135) conjugate vaccine (MCV4P) 2009-07-22 00:00:[address] [facility] TDAP 2009-07-22 00:00:[address] [facility] HEPATITIS A 2009-07-22 00:00:[address] [facility] Meningococcal Polysaccharide (groups A, C, Y and W-135) conjugate vaccine (MCV4P) 2009-07-22 00:00:[address] [facility] TDAP 2009-07-22 00:00:[address] [facility] HEPATITIS A 2009-07-22 00:00:[address] [facility] Meningococcal Polysaccharide (groups A, C, Y and W-135) conjugate vaccine (MCV4P) 2009-07-22 00:00:[address] [facility] TDAP 2009-07-22 00:00:[address] [facility] HEPATITIS A 2009-07-22 00:00:[address] [facility] Meningococcal Polysaccharide (groups A, C, Y and W-135) conjugate vaccine (MCV4P) 2009-07-22 00:00:[address] [facility] TDAP 2009-07-22 00:00:[address] [facility] HEPATITIS A 2009-07-22 00:00:[address] [facility] Meningococcal Polysaccharide (groups A, C, Y and W-135) conjugate vaccine (MCV4P) 2009-07-22 00:00:[address] [facility] TDAP 2009-07-22 00:00:[address] [facility] HEPATITIS A 2009-07-22 00:00:[address] [facility] Meningococcal Polysaccharide (groups A, C, Y and W-135) conjugate vaccine (MCV4P) 2009-07-22 00:00:[address] [facility] TDAP 2009-07-22 00:00:[address] [facility] HEPATITIS A 2009-07-22 00:00:[address] [facility] Meningococcal Polysaccharide (groups A, C, Y and W-135) conjugate vaccine (MCV4P) 2009-07-22 00:00:[address] [facility] TDAP 2009-07-22 00:00:[address] [facility] HEPATITIS A 2009-07-22 00:00:[address] [facility] Meningococcal Polysaccharide (groups A, C, Y and W-135) conjugate vaccine (MCV4P) 2009-07-22 00:00:[address] [facility] TDAP 2009-07-22 00:00:[address] [facility] HEPATITIS A 2009-07-22 00:00:[address] [facility] Meningococcal Polysaccharide (groups A, C, Y and W-135) conjugate vaccine (MCV4P) 2009-07-22 00:00:[address] [facility] TDAP 2009-07-22 00:00:[address] [facility] HEPATITIS A 2009-07-22 00:00:[address] [facility] Meningococcal Polysaccharide (groups A, C, Y and W-135) conjugate vaccine (MCV4P) 2009-07-22 00:00:[address] [facility] TDAP 2009-07-22 00:00:[address] [facility] HEPATITIS A 2009-07-22 00:00:[address] [facility] Meningococcal Polysaccharide (groups A, C, Y and W-135) conjugate vaccine (MCV4P) 2009-07-22 00:00:[address] [facility] TDAP 2009-07-22 00:00:[address] [facility] HEPATITIS A 2009-07-22 00:00:[address] [facility] Meningococcal Polysaccharide (groups A, C, Y and W-135) conjugate vaccine (MCV4P) 2009-07-22 00:00:[address] [facility] TDAP 2009-07-22 00:00:[address] [facility] HEPATITIS A 2009-07-22 00:00:[address] [facility] Meningococcal Polysaccharide (groups A, C, Y and W-135) conjugate vaccine (MCV4P) 2009-07-22 00:00:[address] [facility] TDAP 2009-07-22 00:00:[address] [facility] HEPATITIS A 2009-07-22 00:00:[address] [facility] Meningococcal Polysaccharide (groups A, C, Y and W-135) conjugate vaccine (MCV4P) 2009-07-22 00:00:[address] [facility] TDAP 2009-07-22 00:00:[address] [facility] HEPATITIS A 2009-07-22 00:00:[address] [facility] Meningococcal Polysaccharide (groups A, C, Y and W-135) conjugate vaccine (MCV4P) 2009-07-22 00:00:[address] [facility] HEPATITIS A 2008-07-11 00:00:[address] [facility] HEPATITIS A 2008-07-11 00:00:[address] [facility] HEPATITIS A 2008-07-11 00:00:[address] [facility] HEPATITIS A 2008-07-11 00:00:[address] [facility] HEPATITIS A 2008-07-11 00:00:[address] [facility] HEPATITIS A 2008-07-11 00:00:[address] [facility] HEPATITIS A 2008-07-11 00:00:[address] [facility] HEPATITIS A 2008-07-11 00:00:[address] [facility] HEPATITIS A 2008-07-11 00:00:[address] [facility] HEPATITIS A 2008-07-11 00:00:[address] [facility] HEPATITIS A 2008-07-11 00:00:[address] [facility] HEPATITIS A 2008-07-11 00:00:[address] [facility] HEPATITIS A 2008-07-11 00:00:[address] [facility] HEPATITIS A 2008-07-11 00:00:[address] [facility] HEPATITIS A 2008-07-11 00:00:[address] [facility] HEPATITIS A 2008-07-11 00:00:[address] [facility] HEPATITIS A 2008-07-11 00:00:[address] [facility] HEPATITIS A 2008-07-11 00:00:[address] [facility] HEPATITIS A 2008-07-11 00:00:[address] [facility] HEPATITIS A 2008-07-11 00:00:[address] [facility] HEPATITIS A 2008-07-11 00:00:[address] [facility] HEPATITIS A 2008-07-11 00:00:[address] [facility] HEPATITIS A 2008-07-11 00:00:[address] [facility] HEPATITIS A 2008-07-11 00:00:[address] [facility] HEPATITIS A 2008-07-11 00:00:[address] [facility] HEPATITIS A 2008-07-11 00:00:[address] [facility] HEPATITIS A 2008-07-11 00:00:[address] [facility] HEPATITIS A 2008-07-11 00:00:[address] [facility] HEPATITIS A 2008-07-11 00:00:[address] [facility] HEPATITIS A 2008-07-11 00:00:[address] [facility] HEPATITIS A 2008-07-11 00:00:[address] [facility] HEPATITIS A 2008-07-11 00:00:[address] [facility] HEPATITIS A 2008-07-11 00:00:[address] [facility] HEPATITIS A 2008-07-11 00:00:[address] [facility] HEPATITIS A 2008-07-11 00:00:[address] [facility] HEPATITIS A 2008-07-11 00:00:[address] [facility] HEPATITIS A 2008-07-11 00:00:[address] [facility] HEPATITIS A 2008-07-11 00:00:[address] [facility] HEPATITIS A 2008-07-11 00:00:[address] [facility] Varicella (varivax)(chicken pox) 2006-04-29 00:00:[address] [facility] Varicella (varivax)(chicken pox) 2006-04-29 00:00:[address] [facility] Varicella (varivax)(chicken pox) 2006-04-29 00:00:[address] [facility] Varicella (varivax)(chicken pox) 2006-04-29 00:00:[address] [facility] Varicella (varivax)(chicken pox) 2006-04-29 00:00:[address] [facility] Varicella (varivax)(chicken pox) 2006-04-29 00:00:[address] [facility] Varicella (varivax)(chicken pox) 2006-04-29 00:00:[address] [facility] Varicella (varivax)(chicken pox) 2006-04-29 00:00:[address] [facility] Varicella (varivax)(chicken pox) 2006-04-29 00:00:[address] [facility] Varicella (varivax)(chicken pox) 2006-04-29 00:00:[address] [facility] Varicella (varivax)(chicken pox) 2006-04-29 00:00:[address] [facility] Varicella (varivax)(chicken pox) 2006-04-29 00:00:[address] [facility] Varicella (varivax)(chicken pox) 2006-04-29 00:00:[address] [facility] Varicella (varivax)(chicken pox) 2006-04-29 00:00:[address] [facility] Varicella (varivax)(chicken pox) 2006-04-29 00:00:[address] [facility] Varicella (varivax)(chicken pox) 2006-04-29 00:00:[address] [facility] Varicella (varivax)(chicken pox) 2006-04-29 00:00:[address] [facility] Varicella (varivax)(chicken pox) 2006-04-29 00:00:[address] [facility] Varicella (varivax)(chicken pox) 2006-04-29 00:00:[address] [facility] Varicella (varivax)(chicken pox) 2006-04-29 00:00:[address] [facility] Varicella (varivax)(chicken pox) 2006-04-29 00:00:[address] [facility] Varicella (varivax)(chicken pox) 2006-04-29 00:00:[address] [facility] Varicella (varivax)(chicken pox) 2006-04-29 00:00:[address] [facility] Varicella (varivax)(chicken pox) 2006-04-29 00:00:[address] [facility] Varicella (varivax)(chicken pox) 2006-04-29 00:00:[address] [facility] Varicella (varivax)(chicken pox) 2006-04-29 00:00:[address] [facility] Varicella (varivax)(chicken pox) 2006-04-29 00:00:[address] [facility] Varicella (varivax)(chicken pox) 2006-04-29 00:00:[address] [facility] Varicella (varivax)(chicken pox) 2006-04-29 00:00:[address] [facility] Varicella (varivax)(chicken pox) 2006-04-29 00:00:[address] [facility] Varicella (varivax)(chicken pox) 2006-04-29 00:00:[address] [facility] Varicella (varivax)(chicken pox) 2006-04-29 00:00:[address] [facility] Varicella (varivax)(chicken pox) 2006-04-29 00:00:[address] [facility] Varicella (varivax)(chicken pox) 2006-04-29 00:00:[address] [facility] Varicella (varivax)(chicken pox) 2006-04-29 00:00:[address] [facility] Varicella (varivax)(chicken pox) 2006-04-29 00:00:[address] [facility] Varicella (varivax)(chicken pox) 2006-04-29 00:00:[address] [facility] Varicella (varivax)(chicken pox) 2006-04-29 00:00:[address] [facility] Varicella (varivax)(chicken pox) 2006-04-29 00:00:[address] [facility] DTaP, Unspecified Formulation 2002-06-30 00:00:[address] [facility] MMR 2002-06-30 00:00:[address] [facility] IPV 2002-06-30 00:00:[address] [facility] DTaP, Unspecified Formulation 2002-06-30 00:00:[address] [facility] MMR 2002-06-30 00:00:[address] [facility] IPV 2002-06-30 00:00:[address] [facility] DTaP, Unspecified Formulation 2002-06-30 00:00:[address] [facility] MMR 2002-06-30 00:00:[address] [facility] IPV 2002-06-30 00:00:[address] [facility] DTaP, Unspecified Formulation 2002-06-30 00:00:[address] [facility] MMR 2002-06-30 00:00:[address] [facility] IPV 2002-06-30 00:00:[address] [facility] DTaP, Unspecified Formulation 2002-06-30 00:00:[address] [facility] MMR 2002-06-30 00:00:[address] [facility] IPV 2002-06-30 00:00:[address] [facility] DTaP, Unspecified Formulation 2002-06-30 00:00:[address] [facility] MMR 2002-06-30 00:00:[address] [facility] IPV 2002-06-30 00:00:[address] [facility] DTaP, Unspecified Formulation 2002-06-30 00:00:[address] [facility] MMR 2002-06-30 00:00:[address] [facility] IPV 2002-06-30 00:00:[address] [facility] DTaP, Unspecified Formulation 2002-06-30 00:00:[address] [facility] MMR 2002-06-30 00:00:[address] [facility] IPV 2002-06-30 00:00:[address] [facility] DTaP, Unspecified Formulation 2002-06-30 00:00:[address] [facility] MMR 2002-06-30 00:00:[address] [facility] IPV 2002-06-30 00:00:[address] [facility] DTaP, Unspecified Formulation 2002-06-30 00:00:[address] [facility] MMR 2002-06-30 00:00:[address] [facility] IPV 2002-06-30 00:00:[address] [facility] DTaP, Unspecified Formulation 2002-06-30 00:00:[address] [facility] MMR 2002-06-30 00:00:[address] [facility] IPV 2002-06-30 00:00:[address] [facility] DTaP, Unspecified Formulation 2002-06-30 00:00:[address] [facility] MMR 2002-06-30 00:00:[address] [facility] IPV 2002-06-30 00:00:[address] [facility] DTaP, Unspecified Formulation 2002-06-30 00:00:[address] [facility] MMR 2002-06-30 00:00:[address] [facility] IPV 2002-06-30 00:00:[address] [facility] DTaP, Unspecified Formulation 2002-06-30 00:00:[address] [facility] MMR 2002-06-30 00:00:[address] [facility] IPV 2002-06-30 00:00:[address] [facility] DTaP, Unspecified Formulation 2002-06-30 00:00:[address] [facility] MMR 2002-06-30 00:00:[address] [facility] IPV 2002-06-30 00:00:[address] [facility] DTaP, Unspecified Formulation 2002-06-30 00:00:[address] [facility] MMR 2002-06-30 00:00:[address] [facility] IPV 2002-06-30 00:00:[address] [facility] DTaP, Unspecified Formulation 2002-06-30 00:00:[address] [facility] MMR 2002-06-30 00:00:[address] [facility] IPV 2002-06-30 00:00:[address] [facility] DTaP, Unspecified Formulation 2002-06-30 00:00:[address] [facility] MMR 2002-06-30 00:00:[address] [facility] IPV 2002-06-30 00:00:[address] [facility] DTaP, Unspecified Formulation 2002-06-30 00:00:[address] [facility] MMR 2002-06-30 00:00:[address] [facility] IPV 2002-06-30 00:00:[address] [facility] DTaP, Unspecified Formulation 2002-06-30 00:00:[address] [facility] MMR 2002-06-30 00:00:[address] [facility] IPV 2002-06-30 00:00:[address] [facility] DTaP, Unspecified Formulation 2002-06-30 00:00:[address] [facility] MMR 2002-06-30 00:00:[address] [facility] IPV 2002-06-30 00:00:[address] [facility] DTaP, Unspecified Formulation 2002-06-30 00:00:[address] [facility] MMR 2002-06-30 00:00:[address] [facility] IPV 2002-06-30 00:00:[address] [facility] DTaP, Unspecified Formulation 2002-06-30 00:00:[address] [facility] MMR 2002-06-30 00:00:00 Completed [facility] IPV 2002-06-30 00:00:[address] [facility] DTaP, Unspecified Formulation 2002-06-30 00:00:[address] [facility] MMR 2002-06-30 00:00:[address] [facility] IPV 2002-06-30 00:00:[address] [facility] DTaP, Unspecified Formulation 2002-06-30 00:00:[address] [facility] MMR 2002-06-30 00:00:[address] [facility] IPV 2002-06-30 00:00:[address] [facility] DTaP, Unspecified Formulation 2002-06-30 00:00:[address] [facility] MMR 2002-06-30 00:00:[address] [facility] IPV 2002-06-30 00:00:[address] [facility] DTaP, Unspecified Formulation 2002-06-30 00:00:[address] [facility] MMR 2002-06-30 00:00:[address] [facility] IPV 2002-06-30 00:00:[address] [facility] DTaP, Unspecified Formulation 2002-06-30 00:00:[address] [facility] MMR 2002-06-30 00:00:[address] [facility] IPV 2002-06-30 00:00:[address] [facility] DTaP, Unspecified Formulation 2002-06-30 00:00:[address] [facility] MMR 2002-06-30 00:00:[address] [facility] IPV 2002-06-30 00:00:[address] [facility] DTaP, Unspecified Formulation 2002-06-30 00:00:[address] [facility] MMR 2002-06-30 00:00:[address] [facility] IPV 2002-06-30 00:00:[address] [facility] DTaP, Unspecified Formulation 2002-06-30 00:00:[address] [facility] MMR 2002-06-30 00:00:[address] [facility] IPV 2002-06-30 00:00:[address] [facility] DTaP, Unspecified Formulation 2002-06-30 00:00:[address] [facility] MMR 2002-06-30 00:00:[address] [facility] IPV 2002-06-30 00:00:[address] [facility] DTaP, Unspecified Formulation 2002-06-30 00:00:[address] [facility] MMR 2002-06-30 00:00:[address] [facility] IPV 2002-06-30 00:00:[address] [facility] DTaP, Unspecified Formulation 2002-06-30 00:00:[address] [facility] MMR 2002-06-30 00:00:[address] [facility] IPV 2002-06-30 00:00:[address] [facility] DTaP, Unspecified Formulation 2002-06-30 00:00:[address] [facility] MMR 2002-06-30 00:00:[address] [facility] IPV 2002-06-30 00:00:00 Completed [facility] DTaP, Unspecified Formulation 2002-06-30 00:00:[address] [facility] MMR 2002-06-30 00:00:[address] [facility] IPV 2002-06-30 00:00:[address] [facility] DTaP, Unspecified Formulation 2002-06-30 00:00:[address] [facility] MMR 2002-06-30 00:00:[address] [facility] IPV 2002-06-30 00:00:[address] [facility] DTaP, Unspecified Formulation 2002-06-30 00:00:[address] [facility] MMR 2002-06-30 00:00:[address] [facility] IPV 2002-06-30 00:00:[address] [facility] DTaP, Unspecified Formulation 2002-06-30 00:00:[address] [facility] MMR 2002-06-30 00:00:[address] [facility] IPV 2002-06-30 00:00:[address] [facility] DTaP, Unspecified Formulation 2000-03-24 00:00:[address] [facility] HIB 4 Dose Schedule 2000-03-24 00:00:[address] [facility] Pneumococcal 7 Conjugate, PCV7 (Prevnar7) 2000-03-24 00:00:[address] [facility] IPV 2000-03-24 00:00:[address] [facility] DTaP, Unspecified Formulation 2000-03-24 00:00:[address] [facility] HIB 4 Dose Schedule 2000-03-24 00:00:[address] [facility] Pneumococcal 7 Conjugate, PCV7 (Prevnar7) 2000-03-24 00:00:[address] [facility] IPV 2000-03-24 00:00:[address] [facility] DTaP, Unspecified Formulation 2000-03-24 00:00:[address] [facility] HIB 4 Dose Schedule 2000-03-24 00:00:[address] [facility] Pneumococcal 7 Conjugate, PCV7 (Prevnar7) 2000-03-24 00:00:[address] [facility] IPV 2000-03-24 00:00:[address] [facility] DTaP, Unspecified Formulation 2000-03-24 00:00:[address] [facility] HIB 4 Dose Schedule 2000-03-24 00:00:[address] [facility] Pneumococcal 7 Conjugate, PCV7 (Prevnar7) 2000-03-24 00:00:[address] [facility] IPV 2000-03-24 00:00:[address] [facility] DTaP, Unspecified Formulation 2000-03-24 00:00:[address] [facility] HIB 4 Dose Schedule 2000-03-24 00:00:[address] [facility] Pneumococcal 7 Conjugate, PCV7 (Prevnar7) 2000-03-24 00:00:[address] [facility] IPV 2000-03-24 00:00:[address] [facility] DTaP, Unspecified Formulation 2000-03-24 00:00:[address] [facility] HIB 4 Dose Schedule 2000-03-24 00:00:[address] [facility] Pneumococcal 7 Conjugate, PCV7 (Prevnar7) 2000-03-24 00:00:[address] [facility] IPV 2000-03-24 00:00:[address] [facility] DTaP, Unspecified Formulation 2000-03-24 00:00:[address] [facility] HIB 4 Dose Schedule 2000-03-24 00:00:[address] [facility] Pneumococcal 7 Conjugate, PCV7 (Prevnar7) 2000-03-24 00:00:[address] [facility] IPV 2000-03-24 00:00:[address] [facility] DTaP, Unspecified Formulation 2000-03-24 00:00:[address] [facility] HIB 4 Dose Schedule 2000-03-24 00:00:[address] [facility] Pneumococcal 7 Conjugate, PCV7 (Prevnar7) 2000-03-24 00:00:[address] [facility] IPV 2000-03-24 00:00:[address] [facility] DTaP, Unspecified Formulation 2000-03-24 00:00:[address] [facility] HIB 4 Dose Schedule 2000-03-24 00:00:[address] [facility] Pneumococcal 7 Conjugate, PCV7 (Prevnar7) 2000-03-24 00:00:[address] [facility] IPV 2000-03-24 00:00:[address] [facility] DTaP, Unspecified Formulation 2000-03-24 00:00:[address] [facility] HIB 4 Dose Schedule 2000-03-24 00:00:[address] [facility] Pneumococcal 7 Conjugate, PCV7 (Prevnar7) 2000-03-24 00:00:[address] [facility] IPV 2000-03-24 00:00:[address] [facility] DTaP, Unspecified Formulation 2000-03-24 00:00:[address] [facility] HIB 4 Dose Schedule 2000-03-24 00:00:[address] [facility] Pneumococcal 7 Conjugate, PCV7 (Prevnar7) 2000-03-24 00:00:[address] [facility] IPV 2000-03-24 00:00:[address] [facility] DTaP, Unspecified Formulation 2000-03-24 00:00:[address] [facility] HIB 4 Dose Schedule 2000-03-24 00:00:[address] [facility] Pneumococcal 7 Conjugate, PCV7 (Prevnar7) 2000-03-24 00:00:[address] [facility] IPV 2000-03-24 00:00:[address] [facility] DTaP, Unspecified Formulation 2000-03-24 00:00:[address] [facility] HIB 4 Dose Schedule 2000-03-24 00:00:[address] [facility] Pneumococcal 7 Conjugate, PCV7 (Prevnar7) 2000-03-24 00:00:[address] [facility] IPV 2000-03-24 00:00:[address] [facility] DTaP, Unspecified Formulation 2000-03-24 00:00:[address] [facility] HIB 4 Dose Schedule 2000-03-24 00:00:[address] [facility] Pneumococcal 7 Conjugate, PCV7 (Prevnar7) 2000-03-24 00:00:[address] [facility] IPV 2000-03-24 00:00:[address] [facility] DTaP, Unspecified Formulation 2000-03-24 00:00:[address] [facility] HIB 4 Dose Schedule 2000-03-24 00:00:[address] [facility] Pneumococcal 7 Conjugate, PCV7 (Prevnar7) 2000-03-24 00:00:[address] [facility] IPV 2000-03-24 00:00:[address] [facility] DTaP, Unspecified Formulation 2000-03-24 00:00:[address] [facility] HIB 4 Dose Schedule 2000-03-24 00:00:[address] [facility] Pneumococcal 7 Conjugate, PCV7 (Prevnar7) 2000-03-24 00:00:[address] [facility] IPV 2000-03-24 00:00:[address] [facility] DTaP, Unspecified Formulation 2000-03-24 00:00:[address] [facility] HIB 4 Dose Schedule 2000-03-24 00:00:[address] [facility] Pneumococcal 7 Conjugate, PCV7 (Prevnar7) 2000-03-24 00:00:[address] [facility] IPV 2000-03-24 00:00:[address] [facility] DTaP, Unspecified Formulation 2000-03-24 00:00:[address] [facility] HIB 4 Dose Schedule 2000-03-24 00:00:[address] [facility] Pneumococcal 7 Conjugate, PCV7 (Prevnar7) 2000-03-24 00:00:[address] [facility] IPV 2000-03-24 00:00:[address] [facility] DTaP, Unspecified Formulation 2000-03-24 00:00:[address] [facility] HIB 4 Dose Schedule 2000-03-24 00:00:[address] [facility] Pneumococcal 7 Conjugate, PCV7 (Prevnar7) 2000-03-24 00:00:[address] [facility] IPV 2000-03-24 00:00:[address] [facility] DTaP, Unspecified Formulation 2000-03-24 00:00:[address] [facility] HIB 4 Dose Schedule 2000-03-24 00:00:[address] [facility] Pneumococcal 7 Conjugate, PCV7 (Prevnar7) 2000-03-24 00:00:[address] [facility] IPV 2000-03-24 00:00:[address] [facility] DTaP, Unspecified Formulation 2000-03-24 00:00:[address] [facility] HIB 4 Dose Schedule 2000-03-24 00:00:[address] [facility] Pneumococcal 7 Conjugate, PCV7 (Prevnar7) 2000-03-24 00:00:[address] [facility] IPV 2000-03-24 00:00:[address] [facility] DTaP, Unspecified Formulation 2000-03-24 00:00:[address] [facility] HIB 4 Dose Schedule 2000-03-24 00:00:[address] [facility] Pneumococcal 7 Conjugate, PCV7 (Prevnar7) 2000-03-24 00:00:[address] [facility] IPV 2000-03-24 00:00:[address] [facility] DTaP, Unspecified Formulation 2000-03-24 00:00:[address] [facility] HIB 4 Dose Schedule 2000-03-24 00:00:[address] [facility] Pneumococcal 7 Conjugate, PCV7 (Prevnar7) 2000-03-24 00:00:[address] [facility] IPV 2000-03-24 00:00:[address] [facility] DTaP, Unspecified Formulation 2000-03-24 00:00:[address] [facility] HIB 4 Dose Schedule 2000-03-24 00:00:[address] [facility] Pneumococcal 7 Conjugate, PCV7 (Prevnar7) 2000-03-24 00:00:[address] [facility] IPV 2000-03-24 00:00:[address] [facility] DTaP, Unspecified Formulation 2000-03-24 00:00:[address] [facility] HIB 4 Dose Schedule 2000-03-24 00:00:[address] [facility] Pneumococcal 7 Conjugate, PCV7 (Prevnar7) 2000-03-24 00:00:[address] [facility] IPV 2000-03-24 00:00:[address] [facility] DTaP, Unspecified Formulation 2000-03-24 00:00:[address] [facility] HIB 4 Dose Schedule 2000-03-24 00:00:[address] [facility] Pneumococcal 7 Conjugate, PCV7 (Prevnar7) 2000-03-24 00:00:[address] [facility] IPV 2000-03-24 00:00:[address] [facility] DTaP, Unspecified Formulation 2000-03-24 00:00:[address] [facility] HIB 4 Dose Schedule 2000-03-24 00:00:[address] [facility] Pneumococcal 7 Conjugate, PCV7 (Prevnar7) 2000-03-24 00:00:[address] [facility] IPV 2000-03-24 00:00:[address] [facility] DTaP, Unspecified Formulation 2000-03-24 00:00:[address] [facility] HIB 4 Dose Schedule 2000-03-24 00:00:[address] [facility] Pneumococcal 7 Conjugate, PCV7 (Prevnar7) 2000-03-24 00:00:[address] [facility] IPV 2000-03-24 00:00:[address] [facility] DTaP, Unspecified Formulation 2000-03-24 00:00:[address] [facility] HIB 4 Dose Schedule 2000-03-24 00:00:[address] [facility] Pneumococcal 7 Conjugate, PCV7 (Prevnar7) 2000-03-24 00:00:[address] [facility] IPV 2000-03-24 00:00:[address] [facility] DTaP, Unspecified Formulation 2000-03-24 00:00:[address] [facility] HIB 4 Dose Schedule 2000-03-24 00:00:[address] [facility] Pneumococcal 7 Conjugate, PCV7 (Prevnar7) 2000-03-24 00:00:[address] [facility] IPV 2000-03-24 00:00:[address] [facility] DTaP, Unspecified Formulation 2000-03-24 00:00:[address] [facility] HIB 4 Dose Schedule 2000-03-24 00:00:[address] [facility] Pneumococcal 7 Conjugate, PCV7 (Prevnar7) 2000-03-24 00:00:[address] [facility] IPV 2000-03-24 00:00:[address] [facility] DTaP, Unspecified Formulation 2000-03-24 00:00:[address] [facility] HIB 4 Dose Schedule 2000-03-24 00:00:[address] [facility] Pneumococcal 7 Conjugate, PCV7 (Prevnar7) 2000-03-24 00:00:[address] [facility] IPV 2000-03-24 00:00:[address] [facility] DTaP, Unspecified Formulation 2000-03-24 00:00:[address] [facility] HIB 4 Dose Schedule 2000-03-24 00:00:[address] [facility] Pneumococcal 7 Conjugate, PCV7 (Prevnar7) 2000-03-24 00:00:[address] [facility] IPV 2000-03-24 00:00:[address] [facility] DTaP, Unspecified Formulation 2000-03-24 00:00:[address] [facility] HIB 4 Dose Schedule 2000-03-24 00:00:[address] [facility] Pneumococcal 7 Conjugate, PCV7 (Prevnar7) 2000-03-24 00:00:[address] [facility] IPV 2000-03-24 00:00:[address] [facility] DTaP, Unspecified Formulation 2000-03-24 00:00:[address] [facility] HIB 4 Dose Schedule 2000-03-24 00:00:[address] [facility] Pneumococcal 7 Conjugate, PCV7 (Prevnar7) 2000-03-24 00:00:[address] [facility] IPV 2000-03-24 00:00:[address] [facility] DTaP, Unspecified Formulation 2000-03-24 00:00:[address] [facility] HIB 4 Dose Schedule 2000-03-24 00:00:[address] [facility] Pneumococcal 7 Conjugate, PCV7 (Prevnar7) 2000-03-24 00:00:[address] [facility] IPV 2000-03-24 00:00:[address] [facility] DTaP, Unspecified Formulation 2000-03-24 00:00:[address] [facility] HIB 4 Dose Schedule 2000-03-24 00:00:[address] [facility] Pneumococcal 7 Conjugate, PCV7 (Prevnar7) 2000-03-24 00:00:[address] [facility] IPV 2000-03-24 00:00:[address] [facility] DTaP, Unspecified Formulation 2000-03-24 00:00:[address] [facility] HIB 4 Dose Schedule 2000-03-24 00:00:[address] [facility] Pneumococcal 7 Conjugate, PCV7 (Prevnar7) 2000-03-24 00:00:[address] [facility] IPV 2000-03-24 00:00:[address] [facility] DTaP, Unspecified Formulation 2000-03-24 00:00:[address] [facility] HIB 4 Dose Schedule 2000-03-24 00:00:[address] [facility] Pneumococcal 7 Conjugate, PCV7 (Prevnar7) 2000-03-24 00:00:[address] [facility] IPV 2000-03-24 00:00:[address] [facility] Varicella (varivax)(chicken pox) 1999-03-11 00:00:[address] [facility] Hep B, Adol or Pedi Dosage 1999-03-11 00:00:[address] [facility] MMR 1999-03-11 00:00:[address] [facility] Varicella (varivax)(chicken pox) 1999-03-11 00:00:[address] [facility] Hep B, Adol or Pedi Dosage 1999-03-11 00:00:[address] [facility] MMR 1999-03-11 00:00:[address] [facility] Varicella (varivax)(chicken pox) 1999-03-11 00:00:[address] [facility] Hep B, Adol or Pedi Dosage 1999-03-11 00:00:[address] [facility] MMR 1999-03-11 00:00:[address] [facility] Varicella (varivax)(chicken pox) 1999-03-11 00:00:[address] [facility] Hep B, Adol or Pedi Dosage 1999-03-11 00:00:[address] [facility] MMR 1999-03-11 00:00:[address] [facility] Varicella (varivax)(chicken pox) 1999-03-11 00:00:[address] [facility] Hep B, Adol or Pedi Dosage 1999-03-11 00:00:[address] [facility] MMR 1999-03-11 00:00:[address] [facility] Varicella (varivax)(chicken pox) 1999-03-11 00:00:[address] [facility] Hep B, Adol or Pedi Dosage 1999-03-11 00:00:[address] [facility] MMR 1999-03-11 00:00:[address] [facility] Varicella (varivax)(chicken pox) 1999-03-11 00:00:[address] [facility] Hep B, Adol or Pedi Dosage 1999-03-11 00:00:[address] [facility] MMR 1999-03-11 00:00:[address] [facility] Varicella (varivax)(chicken pox) 1999-03-11 00:00:[address] [facility] Hep B, Adol or Pedi Dosage 1999-03-11 00:00:[address] [facility] MMR 1999-03-11 00:00:[address] [facility] Varicella (varivax)(chicken pox) 1999-03-11 00:00:[address] [facility] Hep B, Adol or Pedi Dosage 1999-03-11 00:00:[address] [facility] MMR 1999-03-11 00:00:[address] [facility] Varicella (varivax)(chicken pox) 1999-03-11 00:00:[address] [facility] Hep B, Adol or Pedi Dosage 1999-03-11 00:00:[address] [facility] MMR 1999-03-11 00:00:[address] [facility] Varicella (varivax)(chicken pox) 1999-03-11 00:00:[address] [facility] Hep B, Adol or Pedi Dosage 1999-03-11 00:00:[address] [facility] MMR 1999-03-11 00:00:[address] [facility] Varicella (varivax)(chicken pox) 1999-03-11 00:00:[address] [facility] Hep B, Adol or Pedi Dosage 1999-03-11 00:00:[address] [facility] MMR 1999-03-11 00:00:[address] [facility] Varicella (varivax)(chicken pox) 1999-03-11 00:00:[address] [facility] Hep B, Adol or Pedi Dosage 1999-03-11 00:00:[address] [facility] MMR 1999-03-11 00:00:[address] [facility] Varicella (varivax)(chicken pox) 1999-03-11 00:00:[address] [facility] Hep B, Adol or Pedi Dosage 1999-03-11 00:00:[address] [facility] MMR 1999-03-11 00:00:[address] [facility] Varicella (varivax)(chicken pox) 1999-03-11 00:00:[address] [facility] Hep B, Adol or Pedi Dosage 1999-03-11 00:00:[address] [facility] MMR 1999-03-11 00:00:[address] [facility] Varicella (varivax)(chicken pox) 1999-03-11 00:00:[address] [facility] Hep B, Adol or Pedi Dosage 1999-03-11 00:00:[address] [facility] MMR 1999-03-11 00:00:[address] [facility] Varicella (varivax)(chicken pox) 1999-03-11 00:00:[address] [facility] Hep B, Adol or Pedi Dosage 1999-03-11 00:00:[address] [facility] MMR 1999-03-11 00:00:[address] [facility] Varicella (varivax)(chicken pox) 1999-03-11 00:00:[address] [facility] Hep B, Adol or Pedi Dosage 1999-03-11 00:00:[address] [facility] MMR 1999-03-11 00:00:[address] [facility] Varicella (varivax)(chicken pox) 1999-03-11 00:00:[address] [facility] Hep B, Adol or Pedi Dosage 1999-03-11 00:00:[address] [facility] MMR 1999-03-11 00:00:[address] [facility] Varicella (varivax)(chicken pox) 1999-03-11 00:00:[address] [facility] Hep B, Adol or Pedi Dosage 1999-03-11 00:00:[address] [facility] MMR 1999-03-11 00:00:[address] [facility] Varicella (varivax)(chicken pox) 1999-03-11 00:00:[address] [facility] Hep B, Adol or Pedi Dosage 1999-03-11 00:00:[address] [facility] MMR 1999-03-11 00:00:[address] [facility] Varicella (varivax)(chicken pox) 1999-03-11 00:00:[address] [facility] Hep B, Adol or Pedi Dosage 1999-03-11 00:00:[address] [facility] MMR 1999-03-11 00:00:[address] [facility] Varicella (varivax)(chicken pox) 1999-03-11 00:00:[address] [facility] Hep B, Adol or Pedi Dosage 1999-03-11 00:00:[address] [facility] MMR 1999-03-11 00:00:[address] [facility] Varicella (varivax)(chicken pox) 1999-03-11 00:00:[address] [facility] Hep B, Adol or Pedi Dosage 1999-03-11 00:00:[address] [facility] MMR 1999-03-11 00:00:[address] [facility] Varicella (varivax)(chicken pox) 1999-03-11 00:00:[address] [facility] Hep B, Adol or Pedi Dosage 1999-03-11 00:00:[address] [facility] MMR 1999-03-11 00:00:[address] [facility] Varicella (varivax)(chicken pox) 1999-03-11 00:00:[address] [facility] Hep B, Adol or Pedi Dosage 1999-03-11 00:00:[address] [facility] MMR 1999-03-11 00:00:[address] [facility] Varicella (varivax)(chicken pox) 1999-03-11 00:00:[address] [facility] Hep B, Adol or Pedi Dosage 1999-03-11 00:00:[address] [facility] MMR 1999-03-11 00:00:[address] [facility] Varicella (varivax)(chicken pox) 1999-03-11 00:00:[address] [facility] Hep B, Adol or Pedi Dosage 1999-03-11 00:00:[address] [facility] MMR 1999-03-11 00:00:[address] [facility] Varicella (varivax)(chicken pox) 1999-03-11 00:00:[address] [facility] Hep B, Adol or Pedi Dosage 1999-03-11 00:00:[address] [facility] MMR 1999-03-11 00:00:[address] [facility] Varicella (varivax)(chicken pox) 1999-03-11 00:00:[address] [facility] Hep B, Adol or Pedi Dosage 1999-03-11 00:00:[address] [facility] MMR 1999-03-11 00:00:[address] [facility] Varicella (varivax)(chicken pox) 1999-03-11 00:00:[address] [facility] Hep B, Adol or Pedi Dosage 1999-03-11 00:00:[address] [facility] MMR 1999-03-11 00:00:[address] [facility] Varicella (varivax)(chicken pox) 1999-03-11 00:00:[address] [facility] Hep B, Adol or Pedi Dosage 1999-03-11 00:00:[address] [facility] MMR 1999-03-11 00:00:[address] [facility] Varicella (varivax)(chicken pox) 1999-03-11 00:00:[address] [facility] Hep B, Adol or Pedi Dosage 1999-03-11 00:00:[address] [facility] MMR 1999-03-11 00:00:[address] [facility] Varicella (varivax)(chicken pox) 1999-03-11 00:00:[address] [facility] Hep B, Adol or Pedi Dosage 1999-03-11 00:00:[address] [facility] MMR 1999-03-11 00:00:[address] [facility] Varicella (varivax)(chicken pox) 1999-03-11 00:00:[address] [facility] Hep B, Adol or Pedi Dosage 1999-03-11 00:00:[address] [facility] MMR 1999-03-11 00:00:[address] [facility] Varicella (varivax)(chicken pox) 1999-03-11 00:00:[address] [facility] Hep B, Adol or Pedi Dosage 1999-03-11 00:00:[address] [facility] MMR 1999-03-11 00:00:[address] [facility] Varicella (varivax)(chicken pox) 1999-03-11 00:00:[address] [facility] Hep B, Adol or Pedi Dosage 1999-03-11 00:00:[address] [facility] MMR 1999-03-11 00:00:[address] [facility] Varicella (varivax)(chicken pox) 1999-03-11 00:00:[address] [facility] Hep B, Adol or Pedi Dosage 1999-03-11 00:00:[address] [facility] MMR 1999-03-11 00:00:[address] [facility] Varicella (varivax)(chicken pox) 1999-03-11 00:00:[address] [facility] Hep B, Adol or Pedi Dosage 1999-03-11 00:00:[address] [facility] MMR 1999-03-11 00:00:[address] [facility] HIB 4 Dose Schedule 1999-01-10 00:00:[address] [facility] HIB 4 Dose Schedule 1999-01-10 00:00:[address] [facility] HIB 4 Dose Schedule 1999-01-10 00:00:[address] [facility] HIB 4 Dose Schedule 1999-01-10 00:00:[address] [facility] HIB 4 Dose Schedule 1999-01-10 00:00:[address] [facility] HIB 4 Dose Schedule 1999-01-10 00:00:[address] [facility] HIB 4 Dose Schedule 1999-01-10 00:00:[address] [facility] HIB 4 Dose Schedule 1999-01-10 00:00:[address] [facility] HIB 4 Dose Schedule 1999-01-10 00:00:[address] [facility] HIB 4 Dose Schedule 1999-01-10 00:00:[address] [facility] HIB 4 Dose Schedule 1999-01-10 00:00:[address] [facility] HIB 4 Dose Schedule 1999-01-10 00:00:[address] [facility] HIB 4 Dose Schedule 1999-01-10 00:00:[address] [facility] HIB 4 Dose Schedule 1999-01-10 00:00:[address] [facility] HIB 4 Dose Schedule 1999-01-10 00:00:[address] [facility] HIB 4 Dose Schedule 1999-01-10 00:00:[address] [facility] HIB 4 Dose Schedule 1999-01-10 00:00:[address] [facility] HIB 4 Dose Schedule 1999-01-10 00:00:[address] [facility] HIB 4 Dose Schedule 1999-01-10 00:00:[address] [facility] HIB 4 Dose Schedule 1999-01-10 00:00:[address] [facility] HIB 4 Dose Schedule 1999-01-10 00:00:[address] [facility] HIB 4 Dose Schedule 1999-01-10 00:00:[address] [facility] HIB 4 Dose Schedule 1999-01-10 00:00:[address] [facility] HIB 4 Dose Schedule 1999-01-10 00:00:[address] [facility] HIB 4 Dose Schedule 1999-01-10 00:00:[address] [facility] HIB 4 Dose Schedule 1999-01-10 00:00:[address] [facility] HIB 4 Dose Schedule 1999-01-10 00:00:[address] [facility] HIB 4 Dose Schedule 1999-01-10 00:00:[address] [facility] HIB 4 Dose Schedule 1999-01-10 00:00:[address] [facility] HIB 4 Dose Schedule 1999-01-10 00:00:[address] [facility] HIB 4 Dose Schedule 1999-01-10 00:00:[address] [facility] HIB 4 Dose Schedule 1999-01-10 00:00:[address] [facility] HIB 4 Dose Schedule 1999-01-10 00:00:[address] [facility] HIB 4 Dose Schedule 1999-01-10 00:00:[address] [facility] HIB 4 Dose Schedule 1999-01-10 00:00:[address] [facility] HIB 4 Dose Schedule 1999-01-10 00:00:[address] [facility] HIB 4 Dose Schedule 1999-01-10 00:00:[address] [facility] HIB 4 Dose Schedule 1999-01-10 00:00:[address] [facility] HIB 4 Dose Schedule 1999-01-10 00:00:[address] [facility] DTaP, Unspecified Formulation 1998 00:00:[address] [facility] HIB 4 Dose Schedule 1998 00:00:[address] [facility] DTaP, Unspecified Formulation 1998 00:00:[address] [facility] HIB 4 Dose Schedule 1998 00:00:[address] [facility] DTaP, Unspecified Formulation 1998 00:00:[address] [facility] HIB 4 Dose Schedule 1998 00:00:[address] [facility] DTaP, Unspecified Formulation 1998 00:00:[address] [facility] HIB 4 Dose Schedule 1998 00:00:[address] [facility] DTaP, Unspecified Formulation 1998 00:00:[address] [facility] HIB 4 Dose Schedule 1998 00:00:[address] [facility] DTaP, Unspecified Formulation 1998 00:00:[address] [facility] HIB 4 Dose Schedule 1998 00:00:[address] [facility] DTaP, Unspecified Formulation 1998 00:00:[address] [facility] HIB 4 Dose Schedule 1998 00:00:[address] [facility] DTaP, Unspecified Formulation 1998 00:00:[address] [facility] HIB 4 Dose Schedule 1998 00:00:[address] [facility] DTaP, Unspecified Formulation 1998 00:00:[address] [facility] HIB 4 Dose Schedule 1998 00:00:[address] [facility] DTaP, Unspecified Formulation 1998 00:00:[address] [facility] HIB 4 Dose Schedule 1998 00:00:[address] [facility] DTaP, Unspecified Formulation 1998 00:00:[address] [facility] HIB 4 Dose Schedule 1998 00:00:[address] [facility] DTaP, Unspecified Formulation 1998 00:00:[address] [facility] HIB 4 Dose Schedule 1998 00:00:[address] [facility] DTaP, Unspecified Formulation 1998 00:00:[address] [facility] HIB 4 Dose Schedule 1998 00:00:[address] [facility] DTaP, Unspecified Formulation 1998 00:00:[address] [facility] HIB 4 Dose Schedule 1998 00:00:[address] [facility] DTaP, Unspecified Formulation 1998 00:00:[address] [facility] HIB 4 Dose Schedule 1998 00:00:[address] [facility] DTaP, Unspecified Formulation 1998 00:00:[address] [facility] HIB 4 Dose Schedule 1998 00:00:[address] [facility] DTaP, Unspecified Formulation 1998 00:00:[address] [facility] HIB 4 Dose Schedule 1998 00:00:[address] [facility] DTaP, Unspecified Formulation 1998 00:00:[address] [facility] HIB 4 Dose Schedule 1998 00:00:[address] [facility] DTaP, Unspecified Formulation 1998 00:00:[address] [facility] HIB 4 Dose Schedule 1998 00:00:[address] [facility] DTaP, Unspecified Formulation 1998 00:00:[address] [facility] HIB 4 Dose Schedule 1998 00:00:[address] [facility] DTaP, Unspecified Formulation 1998 00:00:[address] [facility] HIB 4 Dose Schedule 1998 00:00:[address] [facility] DTaP, Unspecified Formulation 1998 00:00:[address] [facility] HIB 4 Dose Schedule 1998 00:00:[address] [facility] DTaP, Unspecified Formulation 1998 00:00:[address] [facility] HIB 4 Dose Schedule 1998 00:00:[address] [facility] DTaP, Unspecified Formulation 1998 00:00:[address] [facility] HIB 4 Dose Schedule 1998 00:00:[address] [facility] DTaP, Unspecified Formulation 1998 00:00:[address] [facility] HIB 4 Dose Schedule 1998 00:00:[address] [facility] DTaP, Unspecified Formulation 1998 00:00:[address] [facility] HIB 4 Dose Schedule 1998 00:00:[address] [facility] DTaP, Unspecified Formulation 1998 00:00:[address] [facility] HIB 4 Dose Schedule 1998 00:00:[address] [facility] DTaP, Unspecified Formulation 1998 00:00:[address] [facility] HIB 4 Dose Schedule 1998 00:00:[address] [facility] DTaP, Unspecified Formulation 1998 00:00:[address] [facility] HIB 4 Dose Schedule 1998 00:00:[address] [facility] DTaP, Unspecified Formulation 1998 00:00:[address] [facility] HIB 4 Dose Schedule 1998 00:00:[address] [facility] DTaP, Unspecified Formulation 1998 00:00:[address] [facility] HIB 4 Dose Schedule 1998 00:00:[address] [facility] DTaP, Unspecified Formulation 1998 00:00:[address] [facility] HIB 4 Dose Schedule 1998 00:00:[address] [facility] DTaP, Unspecified Formulation 1998 00:00:[address] [facility] HIB 4 Dose Schedule 1998 00:00:[address] [facility] DTaP, Unspecified Formulation 1998 00:00:[address] [facility] HIB 4 Dose Schedule 1998 00:00:[address] [facility] DTaP, Unspecified Formulation 1998 00:00:[address] [facility] HIB 4 Dose Schedule 1998 00:00:[address] [facility] DTaP, Unspecified Formulation 1998 00:00:[address] [facility] HIB 4 Dose Schedule 1998 00:00:[address] [facility] DTaP, Unspecified Formulation 1998 00:00:[address] [facility] HIB 4 Dose Schedule 1998 00:00:[address] [facility] DTaP, Unspecified Formulation 1998 00:00:[address] [facility] HIB 4 Dose Schedule 1998 00:00:[address] [facility] DTaP, Unspecified Formulation 1998 00:00:[address] [facility] HIB 4 Dose Schedule 1998 00:00:[address] [facility] DTaP, Unspecified Formulation 1998 00:00:[address] [facility] Hep B, Adol or Pedi Dosage 1998 00:00:[address] [facility] HIB 4 Dose Schedule 1998 00:00:[address] [facility] IPV 1998 00:00:[address] [facility] DTaP, Unspecified Formulation 1998 00:00:[address] [facility] Hep B, Adol or Pedi Dosage 1998 00:00:[address] [facility] HIB 4 Dose Schedule 1998 00:00:[address] [facility] IPV 1998 00:00:[address] [facility] DTaP, Unspecified Formulation 1998 00:00:[address] [facility] Hep B, Adol or Pedi Dosage 1998 00:00:[address] [facility] HIB 4 Dose Schedule 1998 00:00:[address] [facility] IPV 1998 00:00:[address] [facility] DTaP, Unspecified Formulation 1998 00:00:[address] [facility] Hep B, Adol or Pedi Dosage 1998 00:00:[address] [facility] HIB 4 Dose Schedule 1998 00:00:[address] [facility] IPV 1998 00:00:[address] [facility] DTaP, Unspecified Formulation 1998 00:00:[address] [facility] Hep B, Adol or Pedi Dosage 1998 00:00:[address] [facility] HIB 4 Dose Schedule 1998 00:00:[address] [facility] IPV 1998 00:00:[address] [facility] DTaP, Unspecified Formulation 1998 00:00:[address] [facility] Hep B, Adol or Pedi Dosage 1998 00:00:[address] [facility] HIB 4 Dose Schedule 1998 00:00:[address] [facility] IPV 1998 00:00:[address] [facility] DTaP, Unspecified Formulation 1998 00:00:[address] [facility] Hep B, Adol or Pedi Dosage 1998 00:00:[address] [facility] HIB 4 Dose Schedule 1998 00:00:[address] [facility] IPV 1998 00:00:[address] [facility] DTaP, Unspecified Formulation 1998 00:00:[address] [facility] Hep B, Adol or Pedi Dosage 1998 00:00:[address] [facility] HIB 4 Dose Schedule 1998 00:00:[address] [facility] IPV 1998 00:00:[address] [facility] DTaP, Unspecified Formulation 1998 00:00:[address] [facility] Hep B, Adol or Pedi Dosage 1998 00:00:[address] [facility] HIB 4 Dose Schedule 1998 00:00:[address] [facility] IPV 1998 00:00:[address] [facility] DTaP, Unspecified Formulation 1998 00:00:[address] [facility] Hep B, Adol or Pedi Dosage 1998 00:00:[address] [facility] HIB 4 Dose Schedule 1998 00:00:[address] [facility] IPV 1998 00:00:[address] [facility] DTaP, Unspecified Formulation 1998 00:00:[address] [facility] Hep B, Adol or Pedi Dosage 1998 00:00:[address] [facility] HIB 4 Dose Schedule 1998 00:00:[address] [facility] IPV 1998 00:00:[address] [facility] DTaP, Unspecified Formulation 1998 00:00:[address] [facility] Hep B, Adol or Pedi Dosage 1998 00:00:[address] [facility] HIB 4 Dose Schedule 1998 00:00:[address] [facility] IPV 1998 00:00:[address] [facility] DTaP, Unspecified Formulation 1998 00:00:[address] [facility] Hep B, Adol or Pedi Dosage 1998 00:00:[address] [facility] HIB 4 Dose Schedule 1998 00:00:[address] [facility] IPV 1998 00:00:[address] [facility] DTaP, Unspecified Formulation 1998 00:00:[address] [facility] Hep B, Adol or Pedi Dosage 1998 00:00:[address] [facility] HIB 4 Dose Schedule 1998 00:00:[address] [facility] IPV 1998 00:00:[address] [facility] DTaP, Unspecified Formulation 1998 00:00:[address] [facility] Hep B, Adol or Pedi Dosage 1998 00:00:[address] [facility] HIB 4 Dose Schedule 1998 00:00:[address] [facility] IPV 1998 00:00:[address] [facility] DTaP, Unspecified Formulation 1998 00:00:[address] [facility] [facility] Hep B, Adol or Pedi Dosage 1998 00:00:[address] [facility] HIB 4 Dose Schedule 1998 00:00:[address] [facility] IPV 1998 00:00:[address] [facility] DTaP, Unspecified Formulation 1998 00:00:[address] [facility] Hep B, Adol or Pedi Dosage 1998 00:00:[address] [facility] HIB 4 Dose Schedule 1998 00:00:[address] [facility] IPV 1998 00:00:[address] [facility] DTaP, Unspecified Formulation 1998 00:00:[address] [facility] Hep B, Adol or Pedi Dosage 1998 00:00:[address] [facility] HIB 4 Dose Schedule 1998 00:00:[address] [facility] IPV 1998 00:00:[address] [facility] DTaP, Unspecified Formulation 1998 00:00:[address] [facility] Hep B, Adol or Pedi Dosage 1998 00:00:[address] [facility] HIB 4 Dose Schedule 1998 00:00:[address] [facility] IPV 1998 00:00:[address] [facility] DTaP, Unspecified Formulation 1998 00:00:[address] [facility] Hep B, Adol or Pedi Dosage 1998 00:00:[address] [facility] HIB 4 Dose Schedule 1998 00:00:[address] [facility] IPV 1998 00:00:[address] [facility] DTaP, Unspecified Formulation 1998 00:00:[address] [facility] Hep B, Adol or Pedi Dosage 1998 00:00:[address] [facility] HIB 4 Dose Schedule 1998 00:00:[address] [facility] IPV 1998 00:00:[address] [facility] DTaP, Unspecified Formulation 1998 00:00:[address] [facility] Hep B, Adol or Pedi Dosage 1998 00:00:[address] [facility] HIB 4 Dose Schedule 1998 00:00:[address] [facility] IPV 1998 00:00:[address] [facility] DTaP, Unspecified Formulation 1998 00:00:[address] [facility] Hep B, Adol or Pedi Dosage 1998 00:00:[address] [facility] HIB 4 Dose Schedule 1998 00:00:[address] [facility] IPV 1998 00:00:[address] [facility] DTaP, Unspecified Formulation 1998 00:00:[address] [facility] Hep B, Adol or Pedi Dosage 1998 00:00:[address] [facility] HIB 4 Dose Schedule 1998 00:00:[address] [facility] IPV 1998 00:00:[address] [facility] DTaP, Unspecified Formulation 1998 00:00:[address] [facility] Hep B, Adol or Pedi Dosage 1998 00:00:[address] [facility] HIB 4 Dose Schedule 1998 00:00:[address] [facility] IPV 1998 00:00:[address] [facility] DTaP, Unspecified Formulation 1998 00:00:[address] [facility] Hep B, Adol or Pedi Dosage 1998 00:00:[address] [facility] HIB 4 Dose Schedule 1998 00:00:[address] [facility] IPV 1998 00:00:[address] [facility] DTaP, Unspecified Formulation 1998 00:00:[address] [facility] Hep B, Adol or Pedi Dosage 1998 00:00:[address] [facility] HIB 4 Dose Schedule 1998 00:00:[address] [facility] IPV 1998 00:00:[address] [facility] DTaP, Unspecified Formulation 1998 00:00:[address] [facility] Hep B, Adol or Pedi Dosage 1998 00:00:[address] [facility] HIB 4 Dose Schedule 1998 00:00:[address] [facility] IPV 1998 00:00:[address] [facility] DTaP, Unspecified Formulation 1998 00:00:[address] [facility] Hep B, Adol or Pedi Dosage 1998 00:00:[address] [facility] HIB 4 Dose Schedule 1998 00:00:[address] [facility] IPV 1998 00:00:[address] [facility] DTaP, Unspecified Formulation 1998 00:00:[address] [facility] Hep B, Adol or Pedi Dosage 1998 00:00:[address] [facility] HIB 4 Dose Schedule 1998 00:00:[address] [facility] IPV 1998 00:00:[address] [facility] DTaP, Unspecified Formulation 1998 00:00:[address] [facility] Hep B, Adol or Pedi Dosage 1998 00:00:[address] [facility] HIB 4 Dose Schedule 1998 00:00:[address] [facility] IPV 1998 00:00:[address] [facility] DTaP, Unspecified Formulation 1998 00:00:[address] [facility] Hep B, Adol or Pedi Dosage 1998 00:00:[address] [facility] HIB 4 Dose Schedule 1998 00:00:[address] [facility] IPV 1998 00:00:[address] [facility] DTaP, Unspecified Formulation 1998 00:00:[address] [facility] Hep B, Adol or Pedi Dosage 1998 00:00:[address] [facility] HIB 4 Dose Schedule 1998 00:00:[address] [facility] IPV 1998 00:00:[address] [facility] DTaP, Unspecified Formulation 1998 00:00:[address] [facility] Hep B, Adol or Pedi Dosage 1998 00:00:[address] [facility] HIB 4 Dose Schedule 1998 00:00:[address] [facility] IPV 1998 00:00:[address] [facility] DTaP, Unspecified Formulation 1998 00:00:[address] [facility] Hep B, Adol or Pedi Dosage 1998 00:00:[address] [facility] HIB 4 Dose Schedule 1998 00:00:[address] [facility] IPV 1998 00:00:[address] [facility] DTaP, Unspecified Formulation 1998 00:00:[address] [facility] Hep B, Adol or Pedi Dosage 1998 00:00:[address] [facility] HIB 4 Dose Schedule 1998 00:00:[address] [facility] IPV 1998 00:00:[address] [facility] DTaP, Unspecified Formulation 1998 00:00:[address] [facility] Hep B, Adol or Pedi Dosage 1998 00:00:[address] [facility] HIB 4 Dose Schedule 1998 00:00:[address] [facility] IPV 1998 00:00:[address] [facility] DTaP, Unspecified Formulation 1998 00:00:[address] [facility] Hep B, Adol or Pedi Dosage 1998 00:00:[address] [facility] HIB 4 Dose Schedule 1998 00:00:[address] [facility] IPV 1998 00:00:[address] [facility] DTaP, Unspecified Formulation 1998 00:00:[address] [facility] Hep B, Adol or Pedi Dosage 1998 00:00:[address] [facility] HIB 4 Dose Schedule 1998 00:00:[address] [facility] IPV 1998 00:00:[address] [facility] DTaP, Unspecified Formulation 1998 00:00:[address] [facility] IPV 1998 00:00:[address] [facility] DTaP, Unspecified Formulation 1998 00:00:[address] [facility] IPV 1998 00:00:[address] [facility] DTaP, Unspecified Formulation 1998 00:00:[address] [facility] IPV 1998 00:00:[address] [facility] DTaP, Unspecified Formulation 1998 00:00:[address] [facility] IPV 1998 00:00:[address] [facility] DTaP, Unspecified Formulation 1998 00:00:[address] [facility] IPV 1998 00:00:[address] [facility] DTaP, Unspecified Formulation 1998 00:00:[address] [facility] IPV 1998 00:00:[address] [facility] DTaP, Unspecified Formulation 1998 00:00:[address] [facility] IPV 1998 00:00:[address] [facility] DTaP, Unspecified Formulation 1998 00:00:[address] [facility] IPV 1998 00:00:[address] [facility] DTaP, Unspecified Formulation 1998 00:00:[address] [facility] IPV 1998 00:00:[address] [facility] DTaP, Unspecified Formulation 1998 00:00:[address] [facility] IPV 1998 00:00:[address] [facility] DTaP, Unspecified Formulation 1998 00:00:[address] [facility] IPV 1998 00:00:[address] [facility] DTaP, Unspecified Formulation 1998 00:00:[address] [facility] IPV 1998 00:00:00 Completed [facility] DTaP, Unspecified Formulation 1998 00:00:00 Completed [facility] IPV 1998 00:00:[address] [facility] DTaP, Unspecified Formulation 1998 00:00:[address] [facility] IPV 1998 00:00:[address] [facility] DTaP, Unspecified Formulation 1998 00:00:[address] [facility] IPV 1998 00:00:[address] [facility] DTaP, Unspecified Formulation 1998 00:00:[address] [facility] IPV 1998 00:00:[address] [facility] DTaP, Unspecified Formulation 1998 00:00:[address] [facility] IPV 1998 00:00:[address] [facility] DTaP, Unspecified Formulation 1998 00:00:[address] [facility] IPV 1998 00:00:[address] [facility] DTaP, Unspecified Formulation 1998 00:00:[address] [facility] IPV 1998 00:00:[address] [facility] DTaP, Unspecified Formulation 1998 00:00:[address] [facility] IPV 1998 00:00:[address] [facility] DTaP, Unspecified Formulation 1998 00:00:[address] [facility] IPV 1998 00:00:[address] [facility] DTaP, Unspecified Formulation 1998 00:00:[address] [facility] IPV 1998 00:00:[address] [facility] DTaP, Unspecified Formulation 1998 00:00:[address] [facility] IPV 1998 00:00:[address] [facility] DTaP, Unspecified Formulation 1998 00:00:[address] [facility] IPV 1998 00:00:[address] [facility] DTaP, Unspecified Formulation 1998 00:00:[address] [facility] IPV 1998 00:00:[address] [facility] DTaP, Unspecified Formulation 1998 00:00:[address] [facility] IPV 1998 00:00:[address] [facility] DTaP, Unspecified Formulation 1998 00:00:[address] [facility] IPV 1998 00:00:[address] [facility] DTaP, Unspecified Formulation 1998 00:00:[address] [facility] IPV 1998 00:00:[address] [facility] DTaP, Unspecified Formulation 1998 00:00:[address] [facility] IPV 1998 00:00:[address] [facility] DTaP, Unspecified Formulation 1998 00:00:[address] [facility] IPV 1998 00:00:[address] [facility] DTaP, Unspecified Formulation 1998 00:00:[address] [facility] IPV 1998 00:00:[address] [facility] DTaP, Unspecified Formulation 1998 00:00:[address] [facility] IPV 1998 00:00:[address] [facility] DTaP, Unspecified Formulation 1998 00:00:[address] [facility] IPV 1998 00:00:[address] [facility] DTaP, Unspecified Formulation 1998 00:00:[address] [facility] IPV 1998 00:00:[address] [facility] DTaP, Unspecified Formulation 1998 00:00:[address] [facility] IPV 1998 00:00:[address] [facility] DTaP, Unspecified Formulation 1998 00:00:[address] [facility] IPV 1998 00:00:[address] [facility] DTaP, Unspecified Formulation 1998 00:00:[address] [facility] IPV 1998 00:00:[address] [facility] DTaP, Unspecified Formulation 1998 00:00:[address] [facility] IPV 1998 00:00:[address] [facility] DTaP, Unspecified Formulation 1998 00:00:[address] [facility] IPV 1998 00:00:[address] [facility] Hep B, Adol or Pedi Dosage 1998 00:00:[address] [facility] Hep B, Adol or Pedi Dosage 1998 00:00:[address] [facility] Hep B, Adol or Pedi Dosage 1998 00:00:[address] [facility] Hep B, Adol or Pedi Dosage 1998 00:00:[address] [facility] Hep B, Adol or Pedi Dosage 1998 00:00:[address] [facility] Hep B, Adol or Pedi Dosage 1998 00:00:[address] [facility] Hep B, Adol or Pedi Dosage 1998 00:00:[address] [facility] Hep B, Adol or Pedi Dosage 1998 00:00:[address] [facility] Hep B, Adol or Pedi Dosage 1998 00:00:[address] [facility] Hep B, Adol or Pedi Dosage 1998 00:00:[address] [facility] Hep B, Adol or Pedi Dosage 1998 00:00:[address] [facility] Hep B, Adol or Pedi Dosage 1998 00:00:[address] [facility] Hep B, Adol or Pedi Dosage 1998 00:00:[address] [facility] Hep B, Adol or Pedi Dosage 1998 00:00:[address] [facility] Hep B, Adol or Pedi Dosage 1998 00:00:[address] [facility] Hep B, Adol or Pedi Dosage 1998 00:00:[address] [facility] Hep B, Adol or Pedi Dosage 1998 00:00:[address] [facility] Hep B, Adol or Pedi Dosage 1998 00:00:[address] [facility] Hep B, Adol or Pedi Dosage 1998 00:00:[address] [facility] Hep B, Adol or Pedi Dosage 1998 00:00:[address] [facility] Hep B, Adol or Pedi Dosage 1998 00:00:[address] [facility] Hep B, Adol or Pedi Dosage 1998 00:00:[address] [facility] Hep B, Adol or Pedi Dosage 1998 00:00:[address] [facility] Hep B, Adol or Pedi Dosage 1998 00:00:[address] [facility] Hep B, Adol or Pedi Dosage 1998 00:00:[address] [facility] Hep B, Adol or Pedi Dosage 1998 00:00:[address] [facility] Hep B, Adol or Pedi Dosage 1998 00:00:[address] [facility] Hep B, Adol or Pedi Dosage 1998 00:00:[address] [facility] Hep B, Adol or Pedi Dosage 1998 00:00:[address] [facility] Hep B, Adol or Pedi Dosage 1998 00:00:[address] [facility] Hep B, Adol or Pedi Dosage 1998 00:00:[address] [facility] Hep B, Adol or Pedi Dosage 1998 00:00:[address] [facility] Hep B, Adol or Pedi Dosage 1998 00:00:[address] [facility] Hep B, Adol or Pedi Dosage 1998 00:00:[address] [facility] Hep B, Adol or Pedi Dosage 1998 00:00:[address] [facility] Hep B, Adol or Pedi Dosage 1998 00:00:[address] [facility] Hep B, Adol or Pedi Dosage 1998 00:00:[address] [facility] Hep B, Adol or Pedi Dosage 1998 00:00:[address] [facility] Hep B, Adol or Pedi Dosage 1998 00:00:[address] [facility] TDAP Unknown Completed [facility] MMR Unknown Completed [facility] HPV9 [address] [facility] HPV9 [address] [facility] HPV9 [address] [facility] Influenza Virus Vaccine Quad IM 3+ YRS Unknown Completed [facility] SARS-COV-2 COVID-19 PFIZER VACCINE Unknown Completed [facility] SARS-COV-2 COVID-19 PFIZER VACCINE Unknown Completed [facility] Influenza Virus Vaccine Quad IM, Preserv and ABX Free 6 MO-64 YRS (FLUCELVAX) Unknown Completed [facility] DTaP, Unspecified Formulation Unknown Completed [facility] DTaP, Unspecified Formulation Unknown Completed [facility] DTaP, Unspecified Formulation Unknown Completed [facility] DTaP, Unspecified Formulation Unknown Completed [facility] DTaP, Unspecified Formulation Unknown Completed [facility] Influenza Virus Vaccine - Whole Unknown Completed [facility] HEPATITIS A Unknown Completed [facility] HEPATITIS A Unknown Completed [facility] Hep B, Adol or Pedi Dosage Unknown Completed [facility] Hep B, Adol or Pedi Dosage Unknown Completed [facility] Hep B, Adol or Pedi Dosage Unknown Completed [facility] HIB 4 Dose Schedule Unknown Completed [facility] HIB 4 Dose Schedule Unknown Completed [facility] HIB 4 Dose Schedule Unknown Completed [facility] HIB 4 Dose Schedule Unknown Completed [facility] HPV Unknown Completed [facility] HPV Unknown Completed [facility] Meningococcal Polysaccharide (groups A, C, Y and W-135) conjugate vaccine (MCV4P) Unknown Completed [facility] Meningococcal Polysaccharide (groups A, C, Y and W-135) conjugate vaccine (MCV4P) Unknown Completed [facility] MMR Unknown Completed [facility] MMR Unknown Completed [facility] Pneumococcal 7 Conjugate, PCV7 (Prevnar7) Unknown Completed [facility] IPV Unknown Completed [facility] IPV Unknown Completed [facility] IP[facility] Unknown [facility] IPV Unknown Completed [facility] TDAP Unknown Completed [facility] Varicella (varivax)(chicken pox[facility] Unknown Completed [facility] Varicella (varivax)(chicken pox) Unknown Completed [facility] TDAP Unknown Completed [facility] MMR Unknown Completed [facility] HPV9 [address] [facility] HPV9 [address] [facility] HPV9 [address] [facility] Influenza Virus Vaccine Quad IM 3+ YRS Unknown Completed [facility] SARS-COV-2 COVID-19 PFIZER VACCINE Unknown Completed [facility] SARS-COV-2 COVID-19 PFIZER VACCINE Unknown Completed [facility] Influenza Virus Vaccine Quad IM, Preserv and ABX Free 6 MO-64 YRS (FLUCELVAX) Unknown Completed [facility] DTaP, Unspecified Formulation Unknown Completed [facility] DTaP, Unspecified Formulation Unknown Completed [facility] DTaP, Unspecified Formulation Unknown Completed [facility] DTaP, Unspecified Formulation Unknown Completed [facility] DTaP, Unspecified Formulation Unknown Completed [facility] Influenza Virus Vaccine - Whole Unknown Completed [facility] HEPATITIS A Unknown Completed [facility] HEPATITIS A Unknown Completed [facility] Hep B, Adol or Pedi Dosage Unknown Completed [facility] Hep B, Adol or Pedi Dosage Unknown Completed [facility] Hep B, Adol or Pedi Dosage Unknown Completed [facility] HIB 4 Dose Schedule Unknown Completed [facility] HIB 4 Dose Schedule Unknown Completed [facility] HIB 4 Dose Schedule Unknown Completed [facility] HIB 4 Dose Schedule Unknown Completed [facility] HPV Unknown Completed [facility] HPV Unknown Completed [facility] Meningococcal Polysaccharide (groups A, C, Y and W-135) conjugate vaccine (MCV4P) Unknown Completed [facility] Meningococcal Polysaccharide (groups A, C, Y and W-135) conjugate vaccine (MCV4P) Unknown Completed [facility] MMR Unknown Completed [facility] MMR Unknown Completed [facility] Pneumococcal 7 Conjugate, PCV7 (Prevnar7) Unknown Completed [facility] IPV Unknown Completed [facility] IPV Unknown Completed [facility] IPV Unknown [facility] IPV Unknown Completed [facility] TDAP Unknown Completed [facility] Varicella (varivax)(chicken pox) Unknown Completed [facility] Varicella (varivax)(chicken pox) Unknown Completed [facility] TDAP Unknown Completed [facility] MMR Unknown Completed [facility] HPV9 [address] [facility] HPV9 [address] [facility] HPV9 [address] [facility] Influenza Virus Vaccine Quad IM 3+ YRS Unknown Completed [facility] SARS-COV-2 COVID-19 PFIZER VACCINE Unknown Completed [facility] SARS-COV-2 COVID-19 PFIZER VACCINE Unknown Completed [facility] DTaP, Unspecified Formulation Unknown Completed [facility] DTaP, Unspecified Formulation Unknown Completed [facility] DTaP, Unspecified Formulation Unknown Completed [facility] DTaP, Unspecified Formulation Unknown Completed [facility] DTaP, Unspecified Formulation Unknown Completed [facility] Influenza Virus Vaccine - Whole Unknown Completed [facility] HEPATITIS A Unknown Completed [facility] HEPATITIS A Unknown Completed [facility] Hep B, Adol or Pedi Dosage Unknown Completed [facility] Hep B, Adol or Pedi Dosage Unknown Completed [facility] Hep B, Adol or Pedi Dosage Unknown Completed [facility] HIB 4 Dose Schedule Unknown Completed [facility] HIB 4 Dose Schedule Unknown Completed [facility] HIB 4 Dose Schedule Unknown Completed [facility] HIB 4 Dose Schedule Unknown Completed [facility] HPV Unknown Completed [facility] HPV Unknown Completed [facility] Meningococcal Polysaccharide (groups A, C, Y and W-135) conjugate vaccine (MCV4P) Unknown Completed [facility] Meningococcal Polysaccharide (groups A, C, Y and W-135) conjugate vaccine (MCV4P) Unknown Completed [facility] MMR Unknown Completed [facility] MMR Unknown Completed [facility] Pneumococcal 7 Conjugate, PCV7 (Prevnar7) Unknown Completed [facility] IPV Unknown Completed [facility] IPV Unknown Completed [facility] IPV Unknown [facility] IPV Unknown Completed [facility] TDAP Unknown Completed [facility] Varicella (varivax)(chicken pox) Unknown Completed [facility] Varicella (varivax)(chicken pox) Unknown Completed [facility] TDAP Unknown Completed [facility] MMR Unknown Completed [facility] HPV9 [address] [facility] HPV[address] [facility] HPV[address] [facility] Influenza Virus Vaccine Quad IM 3+ YRS Unknown Completed [facility] SARS-COV-2 COVID-19 PFIZER VACCINE Unknown Completed [facility] SARS-COV-2 COVID-19 PFIZER VACCINE Unknown Completed [facility] DTaP, Unspecified Formulation Unknown Completed [facility] DTaP, Unspecified Formulation Unknown Completed [facility] DTaP, Unspecified Formulation Unknown Completed [facility] DTaP, Unspecified Formulation Unknown Completed [facility] DTaP, Unspecified Formulation Unknown Completed [facility] Influenza Virus Vaccine - Whole Unknown Completed [facility] HEPATITIS A Unknown Completed [facility] HEPATITIS A Unknown Completed [facility] Hep B, Adol or Pedi Dosage Unknown Completed [facility] Hep B, Adol or Pedi Dosage Unknown Completed [facility] Hep B, Adol or Pedi Dosage Unknown Completed [facility] HIB 4 Dose Schedule Unknown Completed [facility] HIB 4 Dose Schedule Unknown Completed [facility] HIB 4 Dose Schedule Unknown Completed [facility] HIB 4 Dose Schedule Unknown Completed [facility] HPV Unknown Completed [facility] HPV Unknown Completed [facility] Meningococcal Polysaccharide (groups A, C, Y and W-135) conjugate vaccine (MCV4P) Unknown Completed [facility] Meningococcal Polysaccharide (groups A, C, Y and W-135) conjugate vaccine (MCV4P) Unknown Completed [facility] MMR Unknown Completed [facility] MMR Unknown Completed [facility] Pneumococcal 7 Conjugate, PCV7 (Prevnar7) Unknown Completed [facility] IPV Unknown Completed [facility] IPV Unknown Completed [facility] IPV Unknown [facility] IPV Unknown Completed [facility] TDAP Unknown Completed [facility] Varicella (varivax)(chicken pox) Unknown Completed [facility] Varicella (varivax)(chicken pox) Unknown Completed [facility] Vital Signs Vital Name Observation Time Observation Value Comments S mirtha Systolic blood pressure 2022-08-29 13:00:00 108 mm[Hg] [facility] Diastolic blood pressure 2022-08-29 13:00:00 66 mm[Hg] [facility] Heart rate 2022-08-29 13:00:00 77 /min [facility] Body temperature 2022-08-29 13:00:[address] [facility] Respiratory rate 2022-08-29 13:00:00 18 /min [facility] Oxygen saturation in Arterial blood by Pulse oximetry 2022-08-29 13:00:00 99 /min [facility] Body height 2022-08-26 19:36:00 165.1 cm [facility] Body weight 2022-08-26 19:36:00 83.519 kg [facility] BMI 2022-08-26 19:36:00 30.64 kg/m2 [facility] Systolic blood pressure 2022-08-25 18:41:00 123 mm[Hg] [facility] Diastolic blood pressure 2022-08-25 18:41:00 84 mm[Hg] [facility] Heart rate 2022-08-25 18:41:00 85 /min [facility] Body temperature 2022-08-25 18:41:[address] [facility] Respiratory rate 2022-08-25 18:41:00 16 /min [facility] Body height 2022-08-25 18:41:00 165.1 cm [facility] Body weight 2022-08-25 18:41:00 83.519 kg [facility] BMI 2022-08-25 18:41:00 30.64 kg/m2 [facility] Systolic blood pressure 2022-08-20 13:19:00 125 mm[Hg] [facility] Diastolic blood pressure 2022-08-20 13:19:00 85 mm[Hg] [facility] Heart rate 2022-08-20 13:19:00 81 /min [facility] Body temperature 2022-08-20 13:19:[address] [facility] Respiratory rate 2022-08-20 13:19:00 18 /min [facility] Body height 2022-08-20 13:19:[address] [facility] Body weight 2022-08-20 13:19:[address] [facility] BMI 2022-08-20 13:19:00 30.14 kg/m2 [facility] Systolic blood pressure 2022-08-17 20:01:00 125 mm[Hg] [facility] Diastolic blood pressure 2022-08-17 20:01:00 83 mm[Hg] [facility] Heart rate 2022-08-17 20:01:00 88 /min [facility] Body temperature 2022-08-17 20:01:[address] [facility] Respiratory rate 2022-08-17 20:01:00 18 /min [facility] Body height 2022-08-17 20:01:[address] [facility] Body weight 2022-08-17 20:01:00 83.008 kg [facility] BMI 2022-08-17 20:01:00 30.45 kg/m2 [facility] Oxygen saturation in Arterial blood by Pulse oximetry 2022-08-17 20:01:00 98 /min [facility] Systolic blood pressure 2022-08-13 14:54:00 122 mm[Hg] [facility] Diastolic blood pressure 2022-08-13 14:54:00 80 mm[Hg] [facility] Heart rate 2022-08-13 14:54:00 83 /min [facility] Body temperature 2022-08-13 14:54:[address] [facility] Respiratory rate 2022-08-13 14:54:00 16 /min [facility] Body height 2022-08-13 14:54:[address] [facility] Body weight 2022-08-13 14:54:[address] [facility] BMI 2022-08-13 14:54:00 29.96 kg/m2 [facility] Systolic blood pressure 2022-08-10 19:31:00 129 mm[Hg] [facility] Diastolic blood pressure 2022-08-10 19:31:00 85 mm[Hg] [facility] Heart rate 2022-08-10 19:31:00 86 /min [facility] Body temperature 2022-08-10 19:31:[address] [facility] Respiratory rate 2022-08-10 19:31:00 18 /min [facility] Body height 2022-08-10 19:31:[address] [facility] Body weight 2022-08-10 19:31:[address] [facility] BMI 2022-08-10 19:31:00 30.04 kg/m2 [facility] Systolic blood pressure 2022-08-04 19:31:00 123 mm[Hg] [facility] Diastolic blood pressure 2022-08-04 19:31:00 81 mm[Hg] [facility] Heart rate 2022-08-04 19:31:00 97 /min [facility] Body temperature 2022-08-04 19:31:[address] [facility] Respiratory rate 2022-08-04 19:31:00 18 /min [facility] Body height 2022-08-04 19:31:[address] [facility] Body weight 2022-08-04 19:31:[address] [facility] BMI 2022-08-04 19:31:00 29.86 kg/m2 [facility] Systolic blood pressure 2022-07-31 17:53:00 115 mm[Hg] [facility] Diastolic blood pressure 2022-07-31 17:53:00 74 mm[Hg] [facility] Heart rate 2022-07-31 17:53:00 83 /min [facility] Body temperature 2022-07-31 17:53:[address] [facility] Respiratory rate 2022-07-31 17:53:00 18 /min [facility] Body height 2022-07-31 17:53:[address] [facility] Body weight 2022-07-31 17:53:[address] [facility] BMI 2022-07-31 17:53:00 29.92 kg/m2 [facility] Systolic blood pressure 2022-07-23 14:53:00 122 mm[Hg] [facility] Diastolic blood pressure 2022-07-23 14:53:00 79 mm[Hg] [facility] Heart rate 2022-07-23 14:53:00 89 /min [facility] Body temperature 2022-07-23 14:53:[address] [facility] Respiratory rate 2022-07-23 14:53:00 18 /min [facility] Body height 2022-07-23 14:53:[address] [facility] Body weight 2022-07-23 14:53:[address] [facility] BMI 2022-07-23 14:53:00 29.31 kg/m2 [facility] Systolic blood pressure 2022-07-20 19:11:00 139 mm[Hg] [facility] Diastolic blood pressure 2022-07-20 19:11:00 88 mm[Hg] [facility] Heart rate 2022-07-20 19:11:00 104 /min [facility] Body temperature 2022-07-20 19:05:[address] [facility] Respiratory rate 2022-07-20 19:05:00 18 /min [facility] Body height 2022-07-20 19:05:[address] [facility] Body weight 2022-07-20 19:05:00 79.975 kg [facility] BMI 2022-07-20 19:05:00 29.34 kg/m2 [facility] Systolic blood pressure 2022-07-16 14:40:00 120 mm[Hg] [facility] Diastolic blood pressure 2022-07-16 14:40:00 83 mm[Hg] [facility] Heart rate 2022-07-16 14:40:00 99 /min [facility] Body temperature 2022-07-16 14:40:[address] [facility] Respiratory rate 2022-07-16 14:40:00 17 /min [facility] Body height 2022-07-16 14:40:00 165.1 cm [facility] Body weight 2022-07-16 14:40:00 79.493 kg [facility] BMI 2022-07-16 14:40:00 29.16 kg/m2 [facility] Systolic blood pressure 2022-07-15 19:45:00 119 mm[Hg] [facility] Diastolic blood pressure 2022-07-15 19:45:00 70 mm[Hg] [facility] Heart rate 2022-07-15 19:45:00 82 /min [facility] Body temperature 2022-07-15 19:45:[address] [facility] Respiratory rate 2022-07-15 19:45:00 18 /min [facility] Oxygen saturation in Arterial blood by Pulse oximetry 2022-07-15 19:45:00 99 /min [facility] Body height 2022-07-15 16:51:00 165.1 cm [facility] Body weight 2022-07-15 16:51:00 80.06 kg [facility] BMI 2022-07-15 16:51:00 29.37 kg/m2 [facility] Systolic blood pressure 2022-07-10 14:01:00 129 mm[Hg] [facility] Diastolic blood pressure 2022-07-10 14:01:00 87 mm[Hg] [facility] Heart rate 2022-07-10 14:01:00 89 /min [facility] Body temperature 2022-07-10 14:01:[address] [facility] Respiratory rate 2022-07-10 14:01:00 18 /min [facility] Body height 2022-07-10 14:01:00 [facility] 2022-07-10 14:01:[address] [facility] BMI 2022-07-10 14:01:00 29.33 kg/m2 [facility] Systolic blood pressure 2022-07-08 14:25:00 115 mm[Hg] [facility] Diastolic blood pressure 2022-07-08 14:25:00 72 mm[Hg] [facility] Heart rate 2022-07-08 14:25:00 77 /min [facility] Body temperature 2022-07-08 14:25:[address] [facility] Respiratory rate 2022-07-08 14:25:00 18 /min [facility] Body height 2022-07-08 14:25:[address] [facility] Body weight 2022-07-08 14:25:[address] [facility] BMI 2022-07-08 14:25:00 28.52 kg/m2 [facility] Systolic blood pressure 2022-06-24 15:23:00 124 mm[Hg] [facility] Diastolic blood pressure 2022-06-24 15:23:00 90 mm[Hg] [facility] Heart rate 2022-06-24 15:23:00 95 /min [facility] Body temperature 2022-06-24 15:23:[address] [facility] Respiratory rate 2022-06-24 15:23:00 18 /min [facility] Body height 2022-06-24 15:23:00 [facility].1 [facility] 2022-06-24 15:23:[address] [facility] BMI 2022-06-24 15:23:00 28.65 kg/m2 [facility] Systolic blood pressure 2022-06-10 21:11:00 128 mm[Hg] [facility] Diastolic blood pressure 2022-06-10 21:11:00 84 mm[Hg] [facility] Heart rate 2022-06-10 21:11:00 104 /min [facility] Body temperature 2022-06-10 21:11:[address] [facility] Respiratory rate 2022-06-10 21:11:00 18 /min [facility] Body height 2022-06-10 21:11:[address] [facility] Body weight 2022-06-10 21:11:00 74.844 kg [facility] BMI 2022-06-10 21:11:00 27.46 kg/m2 [facility] Systolic blood pressure 2022-06-05 18:26:00 118 mm[Hg] [facility] Diastolic blood pressure 2022-06-05 18:26:00 68 mm[Hg] [facility] Heart rate 2022-06-05 18:26:00 111 /min [facility] Body temperature 2022-06-05 18:26:[address] [facility] Respiratory rate 2022-06-05 18:26:00 20 /min [facility] Body weight 2022-06-05 18:26:00 72.576 kg [facility] BMI 2022-06-05 18:26:00 26.63 kg/m2 [facility] Oxygen saturation in Arterial blood by Pulse oximetry 2022-06-05 18:26:00 99 /min [facility] Heart rate 2022-05-30 21:15:00 89 /min [facility] Oxygen saturation in Arterial blood by Pulse oximetry 2022-05-30 21:15:00 100 /min [facility] Systolic blood pressure 2022-05-30 19:21:00 124 mm[Hg] [facility] Diastolic blood pressure 2022-05-30 19:21:00 78 mm[Hg] [facility] Body temperature 2022-05-30 19:21:[address] [facility] Respiratory rate 2022-05-30 19:21:00 18 /min [facility] Body weight 2022-05-30 19:05:[address] [facility] BMI 2022-05-30 19:05:00 26.96 kg/m2 [facility] Systolic blood pressure 2022-05-20 12:55:00 117 mm[Hg] [facility] Diastolic blood pressure 2022-05-20 12:55:00 82 mm[Hg] [facility] Heart rate 2022-05-20 12:55:00 85 /min [facility] 2022-05-20 12:55:[address] [facility] Respiratory rate 2022-05-20 12:55:00 20 /min [facility] Body height 2022-05-20 12:55:[address] [facility] Body weight 2022-05-20 12:55:[address] [facility] BMI 2022-05-20 12:55:00 27.06 kg/m2 [facility] Heart rate 2022-04-21 05:30:00 76 /min [facility] Oxygen saturation in Arterial blood by Pulse oximetry 2022-04-21 05:30:00 100 /min [facility] Systolic blood pressure 2022-04-21 05:00:00 115 mm[Hg] [facility] Diastolic blood pressure 2022-04-21 05:00:00 76 mm[Hg] [facility] Body temperature 2022-04-21 05:00:[address] [facility] Respiratory rate 2022-04-21 05:00:00 18 /min [facility] Body height 2022-04-21 05:00:00 165.1 cm [facility] weight 2022-04-21 05:00:[address] [facility] BMI 2022-04-21 05:00:00 26.46 kg/m2 Univ [facility] Body height 2022-04-16 16:47:00 165.1 cm [facility] Body weight 2022-04-16 16:47:[address] [facility] BMI 2022-04-16 16:47:00 26.49 kg/m2 Univ [facility] Systolic blood pressure 2022-04-16 16:47:00 108 mm[Hg] [facility] Diastolic blood pressure 2022-04-16 16:47:00 73 mm[Hg] [facility] Heart rate 2022-04-16 16:47:00 67 /min Unive [facility] Body temperature 2022-04-16 16:47:[address] [facility] Respiratory rate 2022-04-16 16:47:00 17 /min [facility] Systolic blood pressure 2022-03-19 20:31:00 114 mm[Hg] [facility] Diastolic blood pressure 2022-03-19 20:31:00 77 mm[Hg] [facility] Heart rate 2022-03-19 20:31:00 81 /min Un[facility] Body temperature 2022-03-19 20:31:[address] [facility] Respiratory rate 2022-03-19 20:31:00 18 /min [facility] Body height 2022-03-19 20:31:[address] [facility] Body weight 2022-03-19 20:31:00 70.035 kg [facility] BMI 2022-03-19 20:31:00 25.69 kg/m2 Univ [facility] Systolic blood pressure 2022-02-24 20:07:00 138 mm[Hg] [facility] Diastolic blood pressure 2022-02-24 20:07:00 87 mm[Hg] [facility] Heart rate 2022-02-24 20:07:00 95 /min Un[facility] Body temperature 2022-02-24 20:07:[address] [facility] Respiratory rate 2022-02-24 20:07:00 18 /min [facility] Body height 2022-02-24 20:07:[address] [facility] Body weight 2022-02-24 20:07:00 68.068 kg [facility] BMI 2022-02-24 20:07:00 24.97 kg/m2 Univ [facility] Systolic blood pressure 2022-01-17 16:46:00 128 mm[Hg] [facility] Diastolic blood pressure 2022-01-17 16:46:00 87 mm[Hg] [facility] Heart rate 2022-01-17 16:45:00 69 /min Un[facility] Body temperature 2022-01-17 16:45:[address] [facility] Respiratory rate 2022-01-17 16:45:00 20 /min [facility] Body height 2022-01-17 16:45:[address] [facility] Body weight 2022-01-17 16:45:00 67.405 kg [facility] BMI 2022-01-17 16:45:00 24.73 kg/m2 [facility] Oxygen saturation in Arterial blood by Pulse oximetry 2021-01-30 20:01:00 97 /min [facility] Systolic blood pressure 2021-01-30 20:01:00 132 mm[Hg] [facility] Diastolic blood pressure 2021-01-30 20:01:00 72 mm[Hg] [facility] Heart rate 2021-01-30 20:01:00 88 /min Un[facility] Body temperature 2021-01-30 20:01:[address] [facility] Respiratory rate 2021-01-30 20:01:00 18 /min [facility] Body height 2021-01-30 20:01:[address] [facility] Body weight 2021-01-30 20:01:00 67.217 kg [facility] BMI 2021-01-30 20:01:00 24.66 kg/m2 Univ [facility] Systolic blood pressure 2020-02-11 21:15:00 135 mm[Hg] [facility] Diastolic blood pressure 2020-02-11 21:15:00 95 mm[Hg] [facility] Oxygen saturation in Arterial blood by Pulse oximetry 2020-02-11 21:15:00 99 /min [facility] Heart rate 2020-02-11 19:35:00 98 /min [facility] Body temperature 2020-02-11 19:35:[address] [facility] Respiratory rate 2020-02-11 19:35:00 18 /min [facility] Body weight 2020-02-11 19:35:00 70.761 kg [facility] Systolic blood pressure 2020-02-11 21:15:00 135 mm[Hg] [facility] Diastolic blood pressure 2020-02-11 21:15:00 95 mm[Hg] [facility] Oxygen saturation in Arterial blood by Pulse oximetry 2020-02-11 21:15:00 99 /min [facility] Heart rate 2020-02-11 19:35:00 98 /min [facility] Body temperature 2020-02-11 19:35:00 37 [facility] Respiratory rate 2020-02-11 19:35:00 18 /min [facility] Body weight 2020-02-11 19:35:00 70.761 kg [facility] Temperature Oral (F) 2023-09-13 10:59:00 98.2 F [facility] Heart Rate 2023-09-13 10:59:00 [facility] Systolic (mm Hg) 2023-09-13 10:59:00 [facility] Diastolic (mm Hg) 2023-09-13 10:59:00 [facility] Height 2023-09-12 23:09:00 5 [ft_i] [facility] BMI Calculated 2023-09-12 23:09:00 M [facility] Weight 2023-09-12 23:09:00 [facility] Heart Rate 2023-09-07 21:22:42 [facility] Systolic (mm Hg) 2023-09-07 21:22:38 [facility] Diastolic (mm Hg) 2023-09-07 21:22:38 [facility] Temperature Oral (F) 2023-09-07 21:22:22 97.8 F [facility] Temperature Oral (F) 2023-09-06 05:11:04 98 F [facility] Height 2023-09-03 19:27:00 5 [ft_i] Lisa [facility] Weight 2023-09-03 19:27:00 Lisa [facility] BMI Calculated 2023-09-03 19:27:00 M [facility] Procedures Procedure Date / Time Performed Performing Clinician Source DME/SUPPLY JUSTIFICATION 2022-09-15 05:01:00 Doc tor Unassigned, [place] [facility] CBC WITH DIFF 2022-08-28 09:39:[address] [facility] VENOUS CORD GAS 2022-08-28 04:27:[address] [facility] CENTRAL NEURAXIAL BLOCK 2022-08-27 12:22:[address] [facility] HEPATITIS B SURFACE ANTIGEN 2022-08-26 20:23:[address] [facility] HB ABO GROUPING 2022-08-26 20:23:[address] [facility] RHO (D) IMMUNE GLOBULIN 2022-08-26 20:23:[address] [facility] SYPHILIS IGG/IGM 2022-08-26 20:23:[address] [facility] NON-STRESS TEST 2022-08-26 00:10:[address] [facility] POCT URINALYSIS 2022-08-25 18:49:[address] [facility] POCT URINALYSIS 2022-08-25 18:44:[address] [facility] NON-STRESS TEST 2022-08-20 14:03:[address] [facility] POCT URINALYSIS 2022-08-20 13:20:[address] [facility] NON-STRESS TEST 2022-08-17 21:16:[address] [facility] POCT URINALYSIS 2022-08-17 20:04:[address] [facility] NON-STRESS TEST 2022-08-13 21:32:[address] [facility] POCT URINALYSIS 2022-08-13 14:56:[address] [facility] NON-STRESS TEST 2022-08-11 02:24:[address] [facility] POCT URINALYSIS 2022-08-10 19:34:[address] [facility] NON-STRESS TEST 2022-08-05 01:41:[address] [facility] POCT URINALYSIS 2022-08-04 19:32:[address] [facility] NON-STRESS TEST 2022-07-31 18:32:[address] [facility] POCT URINALYSIS 2022-07-31 17:56:[address] [facility] SECOND AND THIRD TRIMESTER ULTRASOUND 2022-07-24 17:15:[address] [facility] NON-STRESS TEST 2022-07-23 16:09:[address] [facility] POCT URINALYSIS 2022-07-23 14:55:[address] [facility] NON-STRESS TEST 2022-07-20 23:55:[address] [facility] POCT URINALYSIS 2022-07-20 19:12:[address] [facility] NON-STRESS TEST 2022-07-16 16:25:[address] [facility] POCT URINALYSIS 2022-07-16 14:42:[address] [facility] URINALYSIS 2022-07-15 18:46:00 Adum, Monique Henao [facility] ADC CLC OR LCC ONLY - WET PREP 2022-07-15 18:46:00 Adum, Monique Cheng [facility] ASSIGNMENT OF BENEFITS 2022-07-15 16:49:38 Docto r Unassigned, [place] [facility] CONSENT/REFUSAL FOR DIAGNOSIS AND TREATMENT 2022-07-15 16:48:01 Doctor Unassigned, [place] [facility] NON-STRESS TEST 2022-07-10 17:18:[address] [facility] POCT URINALYSIS 2022-07-10 14:02:[address] [facility] SECOND AND THIRD TRIMESTER ULTRASOUND 2022-07-09 19:22:[address] [facility] SECOND AND THIRD TRIMESTER ULTRASOUND 2022-07-09 19:19:[address] [facility] NON-STRESS TEST 2022-07-08 18:37:[address] [facility] POCT URINALYSIS 2022-07-08 14:26:[address] [facility] HIV 1/2 AG-AB WITH REFLEX 2022-06-24 15:54:[address] [facility] SYPHILIS IGG/IGM 2022-06-24 15:54:[address] [facility] POCT URINALYSIS 2022-06-24 15:26:[address] [facility] POCT URINALYSIS 2022-06-10 21:11:[address] [facility] CONSENT/REFUSAL FOR DIAGNOSIS AND TREATMENT 2022-06-05 18:19:17 Doctor Unassigned, [place] [facility] DME/SUPPLY JUSTIFICATION 2022-06-04 05:01:00 Doc tor Unassigned, [place] [facility] URINALYSIS 2022-05-30 20:01:[address] [facility] ADC CLC OR LCC ONLY - WET PREP 2022-05-30 20:01:00 Sandeep Milessol [facility] CONSENT/REFUSAL FOR DIAGNOSIS AND TREATMENT 2022-05-30 19:07:42 Doctor Unassigned, [place] [facility] POCT URINALYSIS 2022-05-20 00:00:[address] [facility] URINALYSIS 2022-04-21 05:14:00 Qing [facility] ADC CLC OR LCC ONLY - WET PREP 2022-04-21 05:14:[address] [facility] POCT URINALYSIS W/O SPECIFIC GRAVITY 2022-04-16 16:48:[address] [facility] MATERNAL SERUM SCREEN 1-Q 2022-04-16 00:00:[address] [facility] SCANNED LAB RESULTS 2022-03-20 06:01:00 Doctor Isacc evans, [place] [facility] FLU VACC ([id number]), 6 MO-64 YRS, .5ML, IM, QUAD (FLUCELVAX) 2022-03-19 23:20:[address] [facility] POCT URINALYSIS W/O SPECIFIC GRAVITY 2022-03-19 00:00:[address] [facility] POCT URINALYSIS 2022-02-24 20:00:[address] [facility] POCT TEST 2022-01-17 16:39:[address] [facility] POCT URINALYSIS W/O SPECIFIC GRAVITY 2022-01-17 16:39:[address] [facility] ASSIGNMENT OF BENEFITS 2022-01-17 16:30:59 Docto r Unassigned, [place] [facility] POCT MOLECULAR FLU 2021-01-30 20:13:[address] [facility] POCT MOLECULAR STREP 2021-01-30 20:10:[address] [facility] POCT TEST 2020-02-11 20:10:[address] [facility] NOTICE OF PRIVACY PRACTICES 2020-02-11 19:30:19 Doctor Unassigned, [place] [facility] CONSENT/REFUSAL FOR DIAGNOSIS AND TREATMENT 2020-02-11 19:30:04 Doctor Unassigned, [place] [facility] Encounters Start Date/Time End Date/Time Encounter Type Admission Type Attending [facility] Care Facility Care Department Encounter ID Source 2022-04-21 00:48:13 Outpatient X [facility] [id number] [facility] 2020-12-14 13:13:53 Emergency [facility] [id number] [facility] 2023-09-27 13:45:00 2023-09-27 13:45:[address] [facility] [id number] [facility] 2023-09-12 17:57:06 2023-09-13 06:51:00 Outpatient Macy Mead [facility] [id number] 2023-09-12 17:57:00 2023-09-13 06:51:00 Emergency E MACY MEAD [facility] [id number] [facility] 2023-09-03 06:55:00 2023-09-07 18:51:00 Inpatient E OLIVIER KAUFMAN [facility] [id number] [facility] 2023-09-03 03:13:42 2023-09-07 18:51:00 Outpatient Olivier Kaufman [facility] [id number] 2023-09-03 03:15:00 2023-09-03 23:59:00 Outpatient ABILIO JALLOH [facility] [id number] [facility] 2022-12-03 09:30:00 2022-12-03 09:30:00 Outpatient YUE GRIMALDO [facility] [id number] [facility] 2022-10-14 00:00:00 2022-10-14 00:00:00 Telephone Yue Akbar [facility] ASSISTANT ASSOCIATE PROFESSOR [facility] 1.2.840.114 350.1.13.10 4.2.7.2.686 [id number] [facility] 2022-09-23 07:45:00 2022-09-23 07:45:00 Outpatient YUE GRIMALDO [facility] [id number] [facility] 2022-09-15 00:00:00 2022-09-15 00:00:00 Orders Only Doctor Unassigned, [place] [facility] 1.2840.114 350.1.13.10 4.2.7.2.686 [id number] [facility] 2022-08-26 13:38:00 2022-08-29 14:24:00 Hospital Encounter Josette Lal [facility] 1.2840.114 350.1.13.10 4.2.7.2.686 [id number] [facility] 2022-08-27 07:10:00 2022-08-28 01:11:00 [facility] 1.2840.114 350.1.13.10 4.2.7.2.686 [id number] [facility] 2022-08-25 15:00:00 2022-08-25 15:00:00 Routine Visit Yue Akbar [facility] ASSISTANT ASSOCIATE PROFESSOR [facility] 1.0.114 350.1.13.10 4.2.7.2.686 [id number] [facility] 2022-08-25 15:00:00 2022-08-25 14:19:03 Outpatient R YUE AKBAR [facility] [id number] [facility] 2022-08-25 14:30:00 2022-08-25 14:18:29 Outpatient R YUE AKBAR [facility] [id number] [facility] 2022-08-21 00:00:00 2022-08-21 00:00:00 Case Management Yue Akbar [facility] ASSISTANT ASSOCIATE PROFESSOR [facility] CHILD [facility] 1.2840.114 350.1.13.10 4.2.7.2.686 [id number] [facility] 2022-08-20 11:30:00 2022-08-20 11:38:46 Insole Tape Stitcher Uco Visit 1, [facility] Room Yue Akbar PRCINDY ASSISTANT ASSOCIATE PROFESSOR [facility] 1.2.840.114 350.1.13.10 4.2.7.2.686 [id number] [facility] 2022-08-20 08:30:00 2022-08-20 09:02:28 Outpatient R YUE AKBAR [facility] [id number] [facility] 2022-08-20 08:30:00 2022-08-20 09:02:28 Routine Visit Yue Akbar [facility] ASSISTANT ASSOCIATE PROFESSOR [facility] 1.2.840.114 350.1.13.10 4.2.7.2.686 [id number] [facility] 2022-08-20 00:00:00 2022-08-20 00:00:00 Telephone Yue Akbar [facility] ASSISTANT ASSOCIATE PROFESSOR [facility] 1.2.840.114 350.1.13.10 4.2.7.2.686 [id number] [facility] 2022-08-17 15:00:00 2022-08-17 15:42:27 Outpatient R YUE AKBAR [facility] [id number] [facility] 2022-08-17 15:00:00 2022-08-17 15:42:27 Routine Visit Yue Akbar [facility] ASSISTANT ASSOCIATE PROFESSOR [facility] 1.2.840.114 350.1.13.10 4.2.7.2.686 [id number] [facility] 2022-08-13 09:45:00 2022-08-13 10:40:14 Outpatient R YUE AKBAR [facility] [id number] [facility] 2022-08-13 09:45:00 2022-08-13 10:40:14 Routine Visit Yue Akbar [facility] ASSISTANT ASSOCIATE PROFESSOR [facility] 1..840.114 350.1.13.10 4.2.7.2.686 [id number] [facility] 2022-08-12 14:00:00 2022-08-12 14:00:00 Outpatient YUE GRIMALDO [facility] [id number] [facility] 2022-08-11 00:00:00 2022-08-11 00:00:00 [facility] ASSOCIATE PROFESSOR [facility] 1.840.114 350.1.13.10 4.2.7.2.686 [id number] [facility] 2022-08-10 14:15:00 2022-08-10 15:46:47 Outpatient R SHRUTHI [facility] [id number] [facility] 2022-08-10 14:15:00 2022-08-10 15:46:47 Routine Visit Provider, Julian Lema [facility] ASSISTANT ASSOCIATE PROFESSOR [facility] 1..840.114 350.1.13.10 4.2.7.2.686 [id number] [facility] 2022-08-07 08:15:00 2022-08-07 08:15:00 Outpatient R YUE AKBAR [facility] [id number] [facility] 2022-08-06 11:30:00 2022-08-06 12:00:00 Insole Tape Stitcher Uco Visit 1, Art [facility] ASSISTANT ASSOCIATE PROFESSOR [facility] 1..840.114 350.1.13.10 4.2.7.2.686 [id number] [facility] 2022-08-06 11:30:00 2022-08-06 11:30:00 Outpatient P JASWINDER COLEMAN [facility] [id number] [facility] 2022-08-04 15:00:00 2022-08-04 15:00:00 Routine Visit Yue Akbar [facility] ASSISTANT ASSOCIATE PROFESSOR [facility] 1.840.114 350.1.13.10 4.2.7.2.686 [id number] [facility] 2022-08-04 15:00:00 2022-08-04 14:55:36 Outpatient R YUE AKBAR [facility] [id number] [facility] 2022-07-31 14:45:00 2022-07-31 14:45:00 Routine Visit Julian Roland [facility] ASSISTANT ASSOCIATE PROFESSOR [facility] 1.840.114 350.1.13.10 4.2.7.2.686 [id number] [facility] 2022-07-31 11:00:00 2022-07-31 13:32:52 Outpatient P ANA [facility] [id number] [facility] 2022-07-31 11:00:00 2022-07-31 11:30:00 Insole Tape Stitcher Uco Visit 1, [facility] Room Ana Oden [facility] ASSISTANT ASSOCIATE PROFESSOR [facility] 1.840.114 350.1.13.10 4.2.7.2.686 [id number] [facility] 2022-07-31 00:00:00 2022-07-31 00:00:00 Telephone Julian Roland [facility] ASSISTANT ASSOCIATE PROFESSOR [facility] 1.840.114 350.1.13.10 4.2.7.2.686 [id number] [facility] 2022-07-28 15:30:00 2022-07-28 15:30:00 Outpatient R JULIAN [facility] [id number] [facility] 2022-07-27 09:45:00 2022-07-27 09:45:00 Outpatient R JULIAN [facility] [id number] [facility] 2022-07-24 11:00:00 2022-07-24 12:22:23 Insole Tape Stitcher Uco Visit 1, [facility] Room Esther De La Torre [facility] ASSISTANT ASSOCIATE PROFESSOR [facility] 1..840.114 350.1.13.10 4.2.7.2.686 [id number] [facility] 2022-07-24 11:00:00 2022-07-24 11:00:00 Outpatient P ESTHER DE [facility] [id number] [facility] 2022-07-23 10:00:00 2022-07-23 10:36:24 Outpatient R YUE AKBAR [facility] [id number] [facility] 2022-07-23 10:00:00 2022-07-23 10:36:24 Routine Visit Yue Akbar [facility] ASSISTANT ASSOCIATE PROFESSOR [facility] 1..840.114 350.1.13.10 4.2.7.2.686 [id number] [facility] 2022-07-20 16:00:00 2022-07-20 16:00:00 Routine Visit Yue Akbar [facility] ASSISTANT ASSOCIATE PROFESSOR [facility] 1.2.840.114 350.1.13.10 4.2.7.2.686 [id number] [facility] 2022-07-20 16:00:00 2022-07-20 15:00:08 Outpatient R YUE AKBAR [facility] [id number] [facility] 2022-07-16 11:30:00 2022-07-16 12:36:23 Outpatient R ANA [facility] [id number] [facility] 2022-07-16 11:30:00 2022-07-16 12:36:23 Insole Tape Stitcher Uco Visit 1, [facility] Room Wil Ana Martinez [facility] ASSISTANT ASSOCIATE PROFESSOR [facility] 1.2.840.114 350.1.13.10 4.2.7.2.686 [id number] [facility] 2022-07-16 09:45:00 2022-07-16 10:37:13 Routine Visit Aleshia Dodge [facility] ASSISTANT ASSOCIATE PROFESSOR [facility] 1.2.840.114 350.1.13.10 4.2.7.2.686 [id number] [facility] 2022-07-16 09:30:00 2022-07-16 09:30:00 Outpatient [facility] [id number] [facility] 2022-07-15 11:55:00 2022-07-15 14:55:00 Outpatient X MONIQUE BARROSO [facility] [id number] [facility] 2022-07-15 11:55:00 2022-07-15 14:55:00 Emergency AdMonique valiente [facility] 1.2.840.114 350.1.13.10 4.2.7.2.686 [id number] [facility] 2022-07-15 00:00:00 2022-07-15 00:00:00 Nurse Triage Kimberly Marquez [facility] 1.2.840.114 350.1.13.10 4.2.7.2.686 [id number] [facility] 2022-07-14 08:30:00 2022-07-14 08:30:00 Outpatient R [facility] [id number] [facility] 2022-07-13 00:00:00 2022-07-13 00:00:00 Telephone Meagan Akbara [facility] ASSISTANT ASSOCIATE PROFESSOR [facility] & CHILD [facility] 1.2.840.114 350.1.13.10 4.2.7.2.686 [id number] [facility] 2022-07-12 00:00:00 2022-07-12 00:00:00 Patient Secure Msg Marian Akbarnda Crys [facility] ASSISTANT ASSOCIATE PROFESSOR [facility] 1.2.840.114 350.1.13.10 4.2.7.2.686 [id number] [facility] 2022-07-10 09:00:00 2022-07-10 09:33:46 Outpatient R INGA [facility] [id number] [facility] 2022-07-10 09:00:00 2022-07-10 09:33:46 Routine Visit Karlaalanis Yue Spangler [facility] ASSISTANT ASSOCIATE PROFESSOR [facility] 1.2.840.114 350.1.13.10 4.2.7.2.686 [id number] 107 [id number] [facility] 2022-07-09 13:00:00 2022-07-09 14:05:34 Insole Tape Stitcher Uco Visit 2, [facility] 1.2.840.114 350.1.13.10 4.2.7.2.686 [id number] [facility] 2022-07-09 13:00:00 2022-07-09 13:00:00 Outpatient P IGLESIA [facility] [id number] [facility] 2022-07-08 10:30:00 2022-07-08 10:30:00 Routine Visit Yue Akbar [facility] ASSISTANT ASSOCIATE PROFESSOR [facility] 1.2.840.114 350.1.13.10 4.2.7.2.686 [id number] 107 [id number] [facility] 2022-07-08 10:30:00 2022-07-08 10:05:35 Outpatient R YUE [facility] [id number] [facility] 2022-07-08 00:00:00 2022-07-08 00:00:00 Telephone Yue Akbar [facility] ASSISTANT ASSOCIATE PROFESSOR [facility] 1.2.840.114 350.1.13.10 4.2.7.2.686 [id number] [facility] 2022-07-02 00:00:00 2022-07-02 00:00:00 [facility] 1.2.840.114 350.1.13.10 4.2.7.2.686 [id number] 107 [id number] [facility] 2022-07-01 15:30:00 2022-07-01 16:04:22 Insole Tape Stitcher Uco Visit Ultrasound, Sug-Esther Mathis [facility] ASSISTANT ASSOCIATE PROFESSOR [facility] 1.2.840.114 350.1.13.10 4.2.7.2.686 [id number] [facility] 2022-07-01 15:30:00 2022-07-01 15:30:00 [facility] [id number] [facility] 2022-06-24 10:15:00 2022-06-24 10:54:05 Outpatient R YUE [facility] [id number] [facility] 2022-06-24 10:15:00 2022-06-24 10:54:05 Routine Visit Yue Akbar [facility] ASSISTANT ASSOCIATE PROFESSOR [facility] 1.2.840.114 350.1.13.10 4.2.7.2.686 [id number] [facility] 2022-06-10 15:30:00 2022-06-10 16:27:05 [facility] [id number] 2022-06-10 15:30:00 2022-06-10 16:27:05 Routine Visit Karlaalanis Yue Spangler [facility] ASSISTANT ASSOCIATE PROFESSOR [facility] 1.840.114 350.1.13.10 4.2.7.2.686 [id number] [facility] 2022-06-09 11:00:00 2022-06-09 11:00:00 [facility] [id number] [facility] 2022-06-08 00:00:00 2022-06-08 00:00:00 Natalia Mccoy [facility] ASSISTANT ASSOCIATE PROFESSOR [facility] 1..840.114 350.1.13.10 4.2.7.2.686 [id number] 107 [id number] [facility] 2022-06-07 00:00:00 2022-06-07 00:00:00 Natalia Mccoy [facility] ASSISTANT ASSOCIATE PROFESSOR [facility] 1..840.114 350.1.13.10 4.2.7.2.686 [id number] 107 [id number] [facility] 2022-06-05 13:26:00 2022-06-05 13:55:00 Emergency GINA DENNEY [facility] [id number] [facility] 2022-06-05 13:26:00 2022-06-05 13:55:00 Emergency iGna Ricardo [facility] 1.840.114 350.1.13.10 4.2.7.2.686 [id number] [facility] 2022-06-04 00:00:00 2022-06-04 00:00:00 Orders Only Doctor Unassigned, [place] [facility] 1.2.840.114 350.1.13.10 4.2.7.2.686 [id number] [facility] 2022-06-04 00:00:00 2022-06-04 00:00:00 Telephone Qing Morley [facility] 1.2.840.114 350.1.13.10 4.2.7.2.686 [id number] [facility] 2022-06-03 00:00:00 2022-06-03 00:00:00 Patient Secure MsYue Quarles [facility] ASSISTANT ASSOCIATE PROFESSOR [facility] 1.2.840.114 350.1.13.10 4.2.7.2.686 [id number] [facility] 2022-06-02 00:00:00 2022-06-02 00:00:00 Telephone Harleen Candelario [facility] 1.2.840.114 350.1.13.10 4.2.7.2.686 [id number] [facility] 2022-05-30 14:06:00 2022-05-30 16:15:00 Outpatient X BERTA-ELIZABETH S, HARLEEN BERTA-ELIZABETH SSANDEEPHARLEEN [facility] [id number] [facility] 2022-05-30 14:06:00 2022-05-30 16:15:00 Emergency Berta-Elizabeth sSandeepHarleen [facility] 1.2.840.114 350.1.13.10 4.2.7.2.686 [id number] [facility] 2022-05-20 07:45:00 2022-05-20 08:15:47 Outpatient R YUE [facility] [id number] [facility] 2022-05-20 07:45:00 2022-05-20 08:15:47 Routine Visit Yue Akbar [facility] ASSISTANT ASSOCIATE PROFESSOR [facility] 1.2840.114 350.1.13.10 4.2.7.2.686 [id number] [facility] 2022-05-20 00:00:00 2022-05-20 00:00:00 Letter (Out) Yue Akbar [facility] 1.20.114 350.1.13.10 4.2.7.2.686 [id number] [facility] 2022-05-14 13:00:00 2022-05-14 13:00:00 Outpatient R QING [facility] [id number] [facility] 2022-05-11 00:00:00 2022-05-11 00:00:00 Telephone Alexus Morleyen [facility] 1.2840.114 350.1.13.10 4.2.7.2.686 [id number] [facility] 2022-05-08 00:00:00 2022-05-08 00:00:00 Telephone Peyman Qing [place] [facility] 1.2.840.114 350.1.13.10 4.2.7.2.686 [id number] 134 [id number] [facility] 2022-05-07 08:00:00 2022-05-07 08:52:53 Insole Tape Stitcher Uco Visit Ultrasound, Jaswinder Covington [facility] ASSISTANT ASSOCIATE PROFESSOR [facility] 1.2840.114 350.1.13.10 4.2.7.2.686 [id number] [facility] 2022-05-07 08:00:00 2022-05-07 08:00:00 Outpatient P JARED JASWINDER [facility]OU[facility] [id number] [facility] 2022-04-20 22:48:00 2022-04-21 00:42:00 Outpatient X QING MORLEY [facility] [id number] [facility] 2022-04-20 22:48:00 2022-04-21 00:42:00 Emergency Qing Morley [facility] 1..840.114 350.1.13.10 4.2.7.2.686 [id number] [facility] 2022-04-20 15:00:00 2022-04-20 15:00:00 Outpatient [facility] [id number] [facility] 2022-04-20 00:00:00 2022-04-20 00:00:00 Telephone Qing [facility] 1..840.114 350.1.13.10 4.2.7.2.686 [id number] [facility] 2022-04-20 00:00:00 2022-04-20 00:00:00 Patient Secure Msg Qing Morley [facility] 1.2.840.114 350.1.13.10 4.2.7.2.686 [id number] 134 [id number] [facility] 2022-04-16 10:45:00 2022-04-16 11:03:05 Outpatient R PARVEZ [facility] [id number] [facility] 2022-04-16 10:45:00 2022-04-16 11:03:05 [facility] 1.2.840.114 350.1.13.10 4.2.7.2.686 [id number] [facility] 2022-04-16 00:00:00 2022-04-16 00:00:00 Telephone Parvez Chung [facility] BU[facility] 1.2.840.114 350.1.13.10 4.2.7.2.686 [id number] 134 [id number] [facility] 2022-04-16 00:00:00 2022-04-16 00:00:00 Orders Only Qing Morley [facility] 1.2.840.114 350.1.13.10 4.2.7.2.686 [id number] [facility]

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
[2023-09-25 09:55] VITALS: BP 116/74; TEMP 98; O2SAT 100
== END 2023-09-25 09:50 | disposition home or self-care (01) ==
LOC: ER 09:18
DX: T81.41XA Infection following a procedure, superficial incisional surgical site, initial encounter (principal)
CPT/HCPCS: 99283

== ENCOUNTER 2023-10-30 12:10 | Emergency (ER) | payer SELFPAY ==
[2023-10-30] MEDS ORDERED: NA CHLORIDE 0.9% 1,000 ML ONE (12:36)
[2023-10-30 13:05] LABS: Absolute Basophils 0.1 K/uL (0-0.5); Absolute Eosinophils 0.2 K/uL (0-0.5); Absolute Lymphocytes (CBC) 1.6 K/uL (0.7-4.9); Absolute Monocytes 0.8 K/uL (0.1-1.3); Absolute Neutrophil 3.8 K/uL (1.8-8.0); Basophils % 1.1 % (0-1.3); Eosinophils % 3.6 % (0-4.4); Hematocrit 38.2 % (36.0-45.0); Hemoglobin 12.2 g/dL (12.0-15.0); Lymphocytes % 25.2 % (15.3-44.8); MCH 25.8 pg (27.0-35.0); MCV 80.6 fL (80-100); MPV 7.9 fL (7.6-11.3); Monocytes % 11.8 % (3.3-12.3); Neutrophils % 58.3 % (41.7-73.7); Nucleated Red Blood Cells % 0.1 % (0-0); Platelets 304 thou/uL (152-406); RBC Red Blood Cell Count 4.74 M/uL (3.86-4.86); Red Cell Distribution Width 22.4 % (12.1-15.2)
[2023-10-30 13:06] LABS: Specific Gravity 1.023 (1.005-1.030)
[2023-10-30 13:08] LABS: Specific Gravity 1.023 (1.005-1.030); Urine Bacteria None Seen /HPF (<20); Urine Bilirubin NEGATIVE (Negative); Urine Blood Negative (Negative); Urine Clarity Turbid (Clear); Urine Color Light-Yellow (Yellow); Urine Culture Reflex Order NOT NEEDED; Urine Glucose NEGATIVE (Negative); Urine Ketones NEGATIVE (Negative); Urine Micro Reflex YN NO BILL MICROSCOPIC; Urine Mucus Slight /HPF (None Seen); Urine Nitrite NEGATIVE (Negative); Urine Protein NEGATIVE (Negative); Urine RBC None Seen /HPF (None Seen); Urine Urobilinogen Normal (Normal); Urine WBC <5 /HPF (<5)
[2023-10-30 13:22] LABS: Albumin 3.4 g/dL (3.4-5.0); Albumin/Globulin Ratio 0.8 (1.1-1.8); Bilirubin Total 0.2 mg/dL (0.2-1.0); Globulin 4.2 g/dL (2.3-3.5); Protein, Total 7.6 g/dL (6.4-8.2)
[2023-10-30 13:27] LABS: Anisocytosis 2+; Blood Morphology Comment NOTED (NOT SEEN); Microcytosis 1+; Platelet Estimate ADEQ; White Blood Cell Scan OK (OK)
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
[2023-10-30] MEDS ORDERED: KETOROLAC 30 MG/ML INJ ONE (14:58)
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
[2023-10-30 16:59] VITALS: TEMP 97.1; O2SAT 100
[2023-10-30 17:16] VITALS: BP 139/72
== END 2023-10-30 16:48 | disposition home or self-care (01) ==
LOC: ER 12:10
DX: N73.9 Female pelvic inflammatory disease, unspecified (principal)
CPT/HCPCS: 36415; 74177; 80053; 81001; 81025; 85025; 87210; 96361; 96365; 96375; 99285; J7030; Q9967